=== PATIENT | male | born 1970 | race Caucasian/White ===

== ENCOUNTER 2021-03-14 13:16 | Outpatient (REF) | payer OTHER, SELFPAY ==
[2021-03-14 16:52] LABS: Hematocrit 40.6 % (42-52); Mean Corpuscular HGB Conc 34.5 g/dl (31.0-36.0); Mean Corpuscular Hemoglobin 32.8 pg (27.0-33.0); Mean Corpuscular Volume 95.1 fL (80-98); Mean Platelet Volume 10.2 fL (9.4-12.4); Platelet Count 241 X10*3/uL (160-400); Red Blood Count 4.27 X10*6/uL (4.60-5.80); Red Cell Distribution Width 12.4 % (11.0-16.0); White Blood Count 9.4 X10*3/uL (4.8-10.8)
[2021-03-14 17:05] LABS: Anion Gap 13 (12-20); Blood Urea Nitrogen 4 mg/dL (9-16); C Reactive Protein 0.44 mg/dL (< or = 0.50); Calcium 8.9 mg/dL (8.4-10.2); Carbon Dioxide 26 mmol/L (22-29); Chloride 94 mmol/L (96-108); Estimated Glomerular Filt Rate > 60; Glucose Random 80 mg/dL (60-115); Potassium 4.2 mmol/L (3.3-5.1); Sodium 129 mmol/L (135-145)
[2021-03-16 05:11] LABS: Lyme Abs Screen <0.90 index
== END 2021-03-14 13:17 | disposition home or self-care (01) ==
LOC: HO.HMGCLDS 13:16
PROVIDERS: PCP Internal Medicine; Visit Provider Internal Medicine
DX: M25.429 Effusion, unspecified elbow (principal)
CPT/HCPCS: 36415; 80048; 85027; 86140; 86617; 86618

== ENCOUNTER 2021-04-18 07:38 | Outpatient (REF) | payer OTHER, SELFPAY ==
--- NOTE | ~2021-04-18 | XR_ITS ---
EXAMINATION: XR ELBOW, RIGHT CLINICAL INFORMATION: Pain COMPARISON: None TECHNIQUE: AP, lateral, and oblique views of the right elbow. FINDINGS: Bone alignment is normal. No fracture or dislocation is seen. The joint spaces are normal. There is no joint effusion. There is soft tissue swelling over the olecranon. XR/XR elbow RT min 3V IMPRESSION: Soft tissue swelling over the olecranon questionable for olecranon bursitis.
== END 2021-04-18 07:39 | disposition home or self-care (01) ==
LOC: HO.HOSX 07:38
PROVIDERS: Visit Provider Physician Assistant
DX: M70.20 Olecranon bursitis, unspecified elbow (principal)
CPT/HCPCS: 73080; 99202

== ENCOUNTER 2021-07-18 14:56 | Outpatient (REF) | payer OTHER, SELFPAY ==
--- NOTE | ~2021-07-18 | US_ITS ---
EXAMINATION: US VENOUS ULTRASOUND WITH DOPPLER LOWER EXTREMITY, LEFT CLINICAL INFORMATION: Left leg pain and swelling COMPARISON: Previous left leg venous ultrasound April 2014 and March 2011 TECHNIQUE: Ultrasound of the deep veins is performed from the hip to the calf with compression sonography and color and pulse Doppler assessment. Spectral analysis with color-flow imaging is performed. FINDINGS: There is linear echogenic material seen within the left common femoral vein suggestive of thrombus. This appears hypoechoic and some of this appears linear and hyperechoic. It is uncertain whether this represents acute or chronic nonocclusive DVT. The left profunda is patent. There is a duplicated left superficial femoral vein. One of the superficial femoral veins demonstrates hypoechoic material suggestive of nonocclusive DVT. Is uncertain whether this is acute or chronic. There is hypoechoic material in the left popliteal vein suggestive of nonocclusive DVT. Again it is uncertain whether this is acute or chronic as this appears mixed hypoechoic and more linear and hyperechoic. These findings are new or increased compared to older exam April 2014. Calf veins are not well visualized. There is no Mays's cyst. US/US venous duplex LE IMPRESSION: Nonocclusive DVT seen in the left common femoral, one of the superficial femoral and popliteal veins. It is uncertain whether this represents acute or chronic DVT. Short-term follow-up exam in several days to evaluate for change is recommended. Findings appear increased from 2014 exam.
== END 2021-07-18 14:57 | disposition home or self-care (01) ==
LOC: HO.US 14:56
PROVIDERS: Visit Provider Nurse Practitioner Family
DX: I82.402 Acute embolism and thrombosis of unspecified deep veins of left lower extremity (principal); I99.9 Unspecified disorder of circulatory system
CPT/HCPCS: 93971

== ENCOUNTER 2021-07-25 15:55 | Outpatient (REF) | payer OTHER, SELFPAY ==
--- NOTE | ~2021-07-25 | US_ITS ---
EXAMINATION: US VENOUS ULTRASOUND WITH DOPPLER LOWER EXTREMITY, LEFT CLINICAL INFORMATION: Acute embolism and thrombosis. COMPARISON: Ultrasound 07/18/2021 TECHNIQUE: Ultrasound of the deep veins is performed from the hip to the calf with compression sonography and color and pulse Doppler assessment. Spectral analysis with color-flow imaging is performed. FINDINGS: Again visualized is nonocclusive thrombus left common femoral, left superficial femoral proximal mid and distal segments and left popliteal vein. It is similar to previous study with thrombus appearing echogenic, hypoechoic and the linear and irregular performed. The calf veins are not visualized The posterior tibial vein appears patent. The left peroneal vein is not seen today. If the patient's symptoms persist, followup ultrasound in 5 days 7 days might be of value to exclude proximal propagation from a non-visualized calf vein. US/US venous duplex LE IMPRESSION: Nonocclusive DVT left lower leg similar to previous study from 07/18/2021.
== END 2021-07-25 15:56 | disposition home or self-care (01) ==
LOC: HO.US 15:55
PROVIDERS: PCP Internal Medicine; Visit Provider Nurse Practitioner Family
DX: I82.402 Acute embolism and thrombosis of unspecified deep veins of left lower extremity (principal)
CPT/HCPCS: 93971

== ENCOUNTER 2021-09-04 23:45 | Inpatient (IN) | payer OTHER, SELFPAY ==
--- NOTE | 2021-09-04 | ECG_ITS ---
Test Reason : dyspnea Blood Pressure : / mmHG Vent. Rate : 112 BPM Atrial Rate : 112 BPM P-R Int : 174 ms QRS Dur : 098 ms QT Int : 352 ms P-R-T Axes : 068 081 058 degrees QTc Int : 480 ms Sinus tachycardia Cannot rule out Anterior infarct , age undetermined Abnormal ECG When compared with ECG of 13-MAR-2017 15:22, No significant change was found Referred By: Generic ED Physician Electronically Signed By:NAVARRO FLORES
--- NOTE | ~2021-09-04 | CT_ITS ---
EXAMINATION: CT ANGIOGRAM OF THE CHEST WITH AND WITHOUT CONTRAST (CT PULMONARY ANGIOGRAM FOR PE) CLINICAL INFORMATION: Reason for Exam recent dx DVTs, now tachy and SOB COMPARISON: Radiograph 07/15/2019 TECHNIQUE: Prior to contrast administration, noncontrast localization images were obtained. Subsequently, multidetector volumetric imaging was performed from the thoracic inlet to below the diaphragms following the administration of 65 mL Omnipaque 350 intravenous contrast. No contrast reaction reported Sagittal, coronal, and MIP oblique sagittal reformatted images were obtained on the CT workstation, uploaded to PACS, and reviewed. This CT examination was performed using dose optimization techniques as appropriate, variously including the following: *Automated exposure control *Adjustment of mA and/or kV according to patient size (this includes techniques or standardized protocols for targeted exams where dose is matched to indication/reason for exam; i.e. extremities or head) *Use of iterative reconstruction technique Total exam dose-length product 311 mGy-cm FINDINGS: QUALITY OF STUDY/CONTRAST BOLUS: Suboptimal. PULMONARY ARTERIES: No central pulmonary embolism seen. No definite lobar or segmental pulmonary embolism seen. That said, enhancement of the main pulmonary artery is suboptimal, with much more significant enhancement of the aorta. THORACIC AORTA: No aneurysm or dissection. LUNG: The central airways are patent. There is moderate to severe paraseptal and centrilobular emphysema. Bandlike opacities are seen in the lower lobes favoring scarring. Tree in bud nodular opacities are seen in the lingula and left lower lobe. There are bilateral lower lobe cavities. Left lower lobe cavity measures 3.6 cm with air-fluid level. This is seen on series 6 image 474. Right lower lobe cavity measures 2.4 cm with adjacent small consolidation. Additional subtle groundglass opacities are present in the right middle lobe. PLEURA: No pleural effusion or pneumothorax. MEDIASTINUM: Normal heart size. No pericardial effusion. Prominent mediastinal lymph nodes are noted. 1.3 cm node in the precarinal region. Subcarinal 1.6 cm lymph node.. No evidence of septal bowing or right heart strain. CHEST WALL/AXILLA: No axillary or internal mammary lymphadenopathy. OSSEOUS STRUCTURES: No acute or suspicious osseous abnormality. UPPER ABDOMEN: Unremarkable. No reflux of contrast into the hepatic veins to suggest elevated right heart pressures. CT/CT angio chest PE protocol IMPRESSION: 1. Suboptimal opacification of the pulmonary arteries. No pulmonary embolism is seen. 2. Moderate to severe emphysema. Multiple areas of groundglass nodular opacities may be infectious or inflammatory. In addition, there are bilateral lower lobe cavities noted. VTE: negative
[2021-09-04 23:50] VITALS: BP 180/101; PULSE 111; RESP 22; TEMP 36.7; O2SAT 94; BMI 21.7
[2021-09-05] VITALS (8 sets, daily range): BP systolic 120–150; BP diastolic 79–91; PULSE 87–119; RESP 18–95; TEMP 36.6–36.9; O2SAT 90–97
--- NOTE | 2021-09-05 00:54 | ED_ITS ---
HPI - SOB/Dyspnea General Chief Complaint: Dyspnea Stated Complaint: difficulty breathing, chest pain, L leg clot Time Seen by Provider: 09/05/21 00:24 Source: patient Mode of arrival: ambulatory Limitations: no limitations History of Present Illness HPI Narrative: Patient comes to the emergency room complaining of shortness of breath for the last 2-3 weeks. Patient states he has been using his inhaler, but he has gradually noted that the shortness of breath is worse even with minimal exertion. Patient was diagnosed with DVTs at the end of July. Patient takes Eliquis, states he is complaint with medication. Patient has no chest pain, no URI symptoms. Denies history of CHF. Denies calf pain. Patient states he has been coughing a bit more than usual, more phlegm. No fever or chills. Patient reports he drank alcohol prior to arrival to the emergency room. States he drinks daily. Related Data Home Medications Medication Instructions Recorded Confirmed buprenorphine 8 mg-naloxone 2 mg 2 film SUBLINGUAL DAILY ea 08/10/20 08/08/21 sublingual film (Suboxone) hydroxychloroquine 200 mg tablet 200 mg PO BID tab 08/11/20 08/08/21 (Plaquenil) albuterol sulfate 90 mcg/actuation 2 puff PO QID PRN 07/25/21 08/08/21 aerosol inhaler (ProAir HFA) Previous Rx's Medication Instructions Recorded blood pressure monitor #1 ea 07/11/21 apixaban 5 mg tablet (Eliquis) 5 mg PO BID #60 tab 08/08/21 diclofenac sodium 1 % topical gel 2 g TOPICAL QID PRN #100 g 08/08/21 (Arthritis Pain (diclofenac)) fluticasone propionate 110 1 puff PO BID #36 ea 08/08/21 mcg/actuation HFA aerosol inhaler (Flovent HFA) Allergies Allergy/AdvReac Type Severity Reaction Status Date / Time Sulfa (Sulfonamide AdvReac Intermediate NAUSEA & Verified 08/08/21 11:39 Antibiotics) VOMITING [SULFA (SULFONAMIDE ANTIBIOTICS)] doxycycline AdvReac Mild Vomiting Verified 08/08/21 11:39 Review of Systems Review of Systems: Constitutional : No Weight loss, No Fever, No Chills, No Night Sweats, No Fatigue, No Malaise ENT/Mouth : No Hearing loss, No Ear Pain, No Nasal Congestion, No Sinus Pain, No Hoarseness, No sore throat, No Rhinorrhea, No Swallowing Difficulty Eyes: No Eye Pain, No Swelling, No Redness, No Foreign Body, No Discharge, No Vision Changes Cardiovascular : No Chest Pain, No SOB, No Dyspnea on Exertion, No Orthopnea, No Edema, No Palpitations Respiratory : Complaining of worsening chronic cough with sputum, mild wheezing, worsening shortness of breath, worse with exertion. Gastrointestinal : No Nausea, No Vomiting, No Diarrhea, No Constipation, No abdominal Pain, No Hematochezia, No Melena Genitourinary : no irregular bleeding, No Dysuria, No Urinary Frequency, No Hematuria, No Urinary Incontinence, No Urgency, No Flank Pain, No Urinary Flow Changes, No Hesitancy Musculoskeletal : No joint pain, No Myalgias, No Joint Swelling Skin : No Skin Lesions, No rash Neuro : No Weakness, No Numbness, No Paresthesias, No Loss of Consciousness, No Dizziness, No Headache Psych : No Anxiety/Panic, No Depression, No SI/HI/AH/VH, No Social Issues, Heme/Lymph: No Bruising, No Bleeding,No Lymphadenopathy Endocrine : No Polyuria, No Polydipsia, No Temperature Intolerance PMF Past Medical History Medical History Discoid lupus erythematosus Epidermal cyst History of substance abuse Pulmonary emphysema Surgical History No pertinent past surgical history Family History Family History Father CVD (cardiovascular disease) Mother Medical history unknown Sister No problems noted. Social History Social History Household Members: Friend(s) Housing: House Are you a primary neurocritical care physician to a significant other at home: No Do you presently have visiting nurse or other home services: No Alcohol intake: current Alcohol intake frequency: 3 or more drinks per day Alcohol type: beer Patient Tobacco Use Status: Current everyday Tobacco user Tobacco use type: Cigarette Cigarette Packs Per Day: 1 e-Cigarette/Vaping Use: Never Used Second Hand Smoke Exposure: No Advance Directives: No Advance Directives Information Provided: Yes service: No Current occupational status: unemployed Current occupation: rt hand / golf course Physical Exam Vital Signs: Vital Signs: Last Vital Signs Temp 98.4 F 09/05/21 00:22 Pulse 102 H 09/05/21 00:22 Resp 18 09/05/21 00:22 BP 120/79 09/05/21 00:22 Pulse Ox 94 09/05/21 00:22 BMI result Body Mass Index 21.7 Const: Other: Appearance: Alert. Oriented X3. No acute distress. Eyes: Pupils equal, round and reactive to light. ENT: Pharynx normal. Neck: Normal inspection. Neck supple. No lymph nodes noted. No crepitus CVS: Normal heart rate and rhythm. Pulses normal. Normal S1 and S2 Respiratory: No respiratory distress. Breath sounds normal. No Wheezing. No rales Abdomen: Soft and nontender. No rigidity. No distention. Skin: Skin warm and dry. Patient has a rash in upper extremities, neck, chest, consistent with discoid lupus Extremities: No lower extremity edema. No Lacerations. No Rash Neuro: Oriented X 3. No motor deficit. No sensory deficit. Moving all extremities. No slurred speech. CN 2 through 12 grossly intact Psych: calm, cooperative, normal affect Course Course Course Narrative: Patient has history of lupus, recently diagnosed with DVTs. On arrival, patient states that he feels short of breath which has been constant for several weeks, mildly tachycardic. Although patient is already taking Eliquis, we will go ahead and assess for pulmonary embolisms. Labs and imaging pending. sign out given to Dr. Roseanne LOVE - SOB/Dyspnea Lab Data Result diagrams: 09/05/21 00:54 09/05/21 00:54 Labs: Lab Results 09/05/21 Range/Units 00:54 WBC 11.8 H (4.8-10.8) X10*3/uL RBC 4.66 (4.60-5.80) X10*6/uL Hgb 15.0 (14.0-18.0) g/dl Hct 43.0 (42.0-52.0) % MCV 92.3 (80.0-98.0) fL MCH 32.2 (27.0-33.0) pg MCHC 34.9 (31.0-36.0) g/dl RDW 12.4 (11.0-16.0) % Plt Count 157 L D (160-400) X10*3/uL MPV 9.9 (9.4-12.4) fL Immature Gran % (Auto) 1.1 H (0.0-0.4) % Neut % (Auto) 83.0 H (45-73) % Lymph % (Auto) 7.6 L (20-40) % [place] % (Auto) 7.8 (2-11) % Eos % (Auto) 0.2 (0-4) % Baso % (Auto) 0.3 (0-2) % Lymph # (Auto) 0.9 L (1.2-4.9) X10*3/uL [place] # (Auto) 0.9 (0.1-1.2) X10*3/uL Eos # (Auto) 0.0 (0.0-0.4) X10*3/uL Baso # (Auto) 0.0 (0.0-0.2) X10*3/uL Abs Immat Gran (auto) 0.13 H (0.00-0.03) X10*3/uL Absolute Neuts (auto) 9.8 H (2.0-8.3) x10*3/uL Absolute Nucleated RBC 0.000 (0.0-0.012) X10*3/uL Nucleated RBC % (auto) 0.0 (0.0-0.2) /100WBC Discharge Plan Discharge Clinical Impression: Dyspnea Patient Disposition: Still a Patient Prescriptions: No Action albuterol sulfate [ProAir HFA] 90 mcg/actuation HFA aerosol inhaler 2 puff PO QID PRN (Reason: shortness of breath or wheezing) 0RF buprenorphine-naloxone [Suboxone] 8-2 mg film 2 film sublingual DAILY 0RF hydroxychloroquine [Plaquenil] 200 mg tablet 200 mg PO BID 0RF (DME) blood pressure monitor Kit See Rx Instructions .Route Qty: 1 0RF Rx Instructions: As directed Flovent HFA 110 mcg/actuation HFA aerosol inhaler 1 puff PO BID Qty: 36 1RF Eliquis 5 mg tablet 5 mg PO BID Qty: 60 1RF Rx Instructions: start 5 mg tablets 2 times per day after completing 10 mg 2 times per day diclofenac sodium [Arthritis Pain (diclofenac)] 1 % gel 2 g topical QID PRN (Reason: pain) Qty: 100 0RF Rx Instructions: apply to single elbow, wrist or hand; for hand includes palm/fingers/back of hand
[2021-09-05 01:02] LABS: MANUAL DIFF FLAG NO
[2021-09-05 01:03] LABS: Basophils Percent Auto 0.3 % (0-2); Eosinophils Percent Auto 0.2 % (0-4); Imm Gran Abs Auto 0.13 X10*3/uL (0.00-0.03); Imm Gran Pct Auto 1.1 % (0.0-0.4); Lymphocytes Absolute Auto 0.9 X10*3/uL (1.2-4.9); Lymphocytes Percent Auto 7.6 % (20-40); Mean Corpuscular HGB Conc 34.9 g/dl (31.0-36.0); Mean Corpuscular Hemoglobin 32.2 pg (27.0-33.0); Mean Corpuscular Volume 92.3 fL (80.0-98.0); Mean Platelet Volume 9.9 fL (9.4-12.4); Monocytes Absolute Auto 0.9 X10*3/uL (0.1-1.2); Monocytes Percent Auto 7.8 % (2-11); Neutrophils Absolute Auto 9.8 x10*3/uL (2.0-8.3); Platelet Count 157 X10*3/uL (160-400); Red Blood Count 4.66 X10*6/uL (4.60-5.80); Red Cell Distribution Width 12.4 % (11.0-16.0); White Blood Count 11.8 X10*3/uL (4.8-10.8)
[2021-09-05 01:12] LABS: Ethanol 192 mg/dL
[2021-09-05 01:18] LABS: Alanine Aminotransferase 64 U/L (0-40); Albumin Level 3.5 g/dL (3.5-5.0); Alkaline Phosphatase 183 U/L (39-117); Anion Gap 20 (12-20); Aspartate Amino Transferase 108 U/L (5-37); Bilirubin Direct 0.3 mg/dL (0.0-0.5); Bilirubin Total 0.5 mg/dL (0.0-1.0); Blood Urea Nitrogen 3 mg/dL (9-16); Calcium 8.6 mg/dL (8.4-10.2); Carbon Dioxide 20 mmol/L (22-29); Chloride 92 mmol/L (96-108); Creatinine Clr Calc Pharmacy 179.4; Estimated Glomerular Filt Rate > 60; Glucose Random 75 mg/dL (60-115); Magnesium 1.8 mg/dL (1.6-2.6); Potassium 4.6 mmol/L (3.3-5.1); Sodium 127 mmol/L (135-145); Total Protein 8.5 g/dL (6.5-8.0)
[2021-09-05 01:22] LABS: INTERNATIONAL NORM RATIO 1.2 (0.9-1.1); Prothrombin Time 13.2 SEC (9.9-13.0)
[2021-09-05 01:25] LABS: Partial Thromboplastin Time 47.7 SEC (24.1-38.0)
[2021-09-05 01:27] LABS: Lactic Acid 1.7 mmol/L (0.5-2.0)
[2021-09-05 01:32] LABS: B Type Natriuretic Peptide 17 pg/mL (<100); Troponin-I High Sensitivity 4.5 ng/L (<3.5-35.0)
[2021-09-05 01:40] LABS: COVID-19 Test Negative (Negative); IDNOW Serial# 55D5AD1C
[2021-09-05] MEDS: iohexoL 350 MG/ML 100 ML INFUS..BTL 65 ML IV (02:28)
--- NOTE | 2021-09-05 04:30 | PC.NURSE ---
pt walked outside and started smoking a cig. pt is told to return to room and explained he can not go outside to smoke. pt ambulates back to room w/o difficulty. Chg aware of incident.
--- NOTE | 2021-09-05 04:32 | PC.NURSE ---
pt is upset he is not going home at this time. pt awaiting for room assignment. Med rec done.
[2021-09-05] MEDS: Nicotine 21 MG PATCH.TD24 TRANSDERMA (04:45)
[2021-09-05] MEDS: chlordiazePOXIDE HCl 25 MG CAPSULE 50 MG PO (04:45)
[2021-09-05] MEDS: Piperacillin Sodium/Tazobactam 3.375 GM in 0.9 % Sodium Chloride 50 ML IV ×3 (04:47→23:04)
[2021-09-05] MEDS: vancomycin HCL 1,000 MG in 0.9 % Sodium Chloride 250 ML 270 MG IV (04:55)
--- NOTE | 2021-09-05 05:45 | PC.NURSE ---
pt denies any complaints and resting at this time. pt wakes to voice, respirations easy, n/l. pt awaiting for further orders.
--- NOTE | 2021-09-05 07:33 | PHA.MEDREC ---
Pharmacy Consult ? Medication Reconciliation Pharmacy has completed the medication reconciliation. There are no remarkable issues for provider's attention. Marilu Carrillo, Mary BethD
--- NOTE | 2021-09-05 07:51 | PC.NURSE ---
pt alert and oriented, skin pwd with some area of rash/blisters like spots all over the the face/neck area, pt denies pain/sob at this time, vs stable ns on the monitor pt is a daily drinker a lot of beers per pt, currently noticeable slight hand tremor pt denies headache/nausea/anxiety last drink was before arrival to the ed last night
--- NOTE | 2021-09-05 09:20 | P.HPHOSP_ITS ---
History of Present Illness Date of Service: 09/05/21 Chief Complaint: shortness of breath and cough This is a 51 year old male with a PMH of SLE, recently diagnosed DVT (June 2021), Emphysema, daily alcohol use, who presents to the hospital with progressive shortness of breath and an intermittently productive cough (yellow, no blood) of several weeks in duration. Patient reports concurrent generalized weakness, poor appetite and malaise. He denies any fevers, chills or night sweats. He denies any exposure to known TB positive persons, incarceration or travel to endemic areas. He reports that his symptoms became so severe that he is unable to sleep and hence the reason for presenting to the ED. In regards to his alcohol usage, he reports drinking 6 or more beers daily. He denies prior alcohol withdrawal symptoms, but he also reports that he has not gone more than 1 day without drinking. He does endorse tremors in the morning. He was noted to have tachycardia and tachypnea in the ED. His CTA of the chest was negative for PE but did show moderate to severe emphysema with multiple areas of ground glass nodular opacities and bilateral lower lobe cavities. He was given IV antibiotisscan showed, librium and admission was requested. Review of Systems Review of Systems: negative except HPI [facility] Medical History Discoid lupus erythematosus Epidermal cyst History of substance abuse Pulmonary emphysema Family History Father CVD (cardiovascular disease) Mother Medical history unknown Sister No problems noted. Surgical History No pertinent past surgical history Social History Household Members: Friend(s) Housing: House Are you a primary director long term care to a significant other at home: No Do you presently have visiting nurse or other home services: No Alcohol intake: current Alcohol intake frequency: 3 or more drinks per day Alcohol type: beer Patient Tobacco Use Status: Current everyday Tobacco user Tobacco use type: Cigarette Cigarette Packs Per Day: 1 e-Cigarette/Vaping Use: Never Used Second Hand Smoke Exposure: No Use of substances other than those prescribed or required for medical reasons: No Advance Directives: No Advance Directives Information Provided: Yes service: No Current occupational status: 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 Allergies Allergy/AdvReac Type Severity Reaction Status Date / Time Sulfa (Sulfonamide AdvReac Intermediate NAUSEA & Verified 08/08/21 11:39 Antibiotics) VOMITING [SULFA (SULFONAMIDE ANTIBIOTICS)] doxycycline AdvReac Mild Vomiting Verified 08/08/21 11:39 Active Medications: Current Medications Acetaminophen (Acetaminophen Supp 650 Mg Supp.Rect) 650 mg VA Q6H PRN PRN Reason: Pain, Mild (Pain Scale 1-3) Ceftriaxone Sodium 1 gm/ (Sodium Chloride) 50 mls @ 100 mls/hr IV Q24H SURESH Azithromycin 500 mg/ Sodium (Chloride) 250 mls @ 125 mls/hr IV Q24H SURESH Ondansetron HCl (Ondansetron Hcl 4 Mg/2 Ml Vial) 4 mg IVPUSH Q8H PRN PRN Reason: Nausea and Vomiting Pharmacy Consult (Consult Rx Etoh Phenob Dosing) 1 each MISCELLANE ONCE ONE; Protocol Stop: 09/05/21 09:15 Sodium Chloride (0.9 % Sodium Chloride Flush 3 Ml Syringe) 3 ml IVFLUSH QSHIFT [facility] Home Medications Medication Instructions Recorded Confirmed Last Taken Type buprenorphine 8 mg-naloxone 2 mg 1 film SUBLINGUAL BID ea 08/10/20 09/05/21 Unknown History sublingual film (Suboxone) hydroxychloroquine 200 mg tablet 200 mg PO BID tab 08/11/20 09/05/21 Unknown History (Plaquenil) albuterol sulfate 90 mcg/actuation 2 puff PO QID PRN 07/25/21 09/05/21 Unknown History aerosol inhaler (ProAir HFA) alclometasone 0.05 % topical 1 appl TOPICAL BID PRN 09/05/21 09/05/21 Unknown History ointment fluocinonide 0.05 % topical 1 appl TOPICAL BID PRN 09/05/21 09/05/21 Unknown History ointment fluticasone propionate 110 1 puff PO BID 09/05/21 09/05/21 Unknown History mcg/actuation HFA aerosol inhaler (Flovent HFA) multivitamin 1 tab PO DAILY 09/05/21 09/05/21 Unknown History Physical Exam Vital Signs and Narrative: Vital Signs: Last Vital Signs Temp 98.4 F 09/05/21 00:22 Pulse 101 H 09/05/21 07:48 Resp 18 09/05/21 07:48 BP 138/84 09/05/21 07:48 Pulse Ox 95 09/05/21 07:48 BMI result Body Mass Index 21.7 Const: Other: Constitutional - Awake and Alert, ill appearing Eyes - PERRLA, EOMI Cardiovascular - S1S2, tachycardic in the 120s with exertion Respiratory - diffuse rhonchi with scattered wheezing Gastrointestinal - NT / ND; +BS; No rebound or guarding - No CVA tenderness Extremities - no calf tenderness bilaterally, no swelling Musculoskeletal - Normal inspection, normal ROM Skin - Warm/Dry Neurological - Alert & oriented x3, No focal deficit Psychological - Flat affect Results Labs CBC and Chem 7: 09/05/21 00:54 09/05/21 00:54 Labs: Laboratory Results - last 24 hr 09/05/21 09/05/21 09/05/21 00:53 00:54 00:54 MCV 92.3 MCH 32.2 MCHC 34.9 RDW 12.4 Plt Count 157 L D MPV 9.9 Immature Gran % (Auto) 1.1 H Neut % (Auto) 83.0 H Lymph % (Auto) 7.6 L [place] % (Auto) 7.8 Eos % (Auto) 0.2 Baso % (Auto) 0.3 Lymph # (Auto) 0.9 L [place] # (Auto) 0.9 Eos # (Auto) 0.0 Baso # (Auto) 0.0 Abs Immat Gran (auto) 0.13 H Absolute Neuts (auto) 9.8 H Absolute Nucleated RBC 0.000 Nucleated RBC % (auto) 0.0 PT INR APTT Anion Gap 20 Estim Creat Clear Calc 179.4 Estimated GFR > 60 Random Glucose 75 Lactic Acid Calcium 8.6 Magnesium 1.8 Total Bilirubin 0.5 Direct Bilirubin 0.3 AST 108 H ALT 64 H Alkaline Phosphatase 183 H D B-Natriuretic Peptide Total Protein 8.5 H Albumin 3.5 Ethyl Alcohol 192 COVID-19 (QUINTIN) COVID-19 Clin Com 09/05/21 09/05/21 09/05/21 00:55 00:55 00:55 MCV MCH MCHC RDW Plt Count MPV Immature Gran % (Auto) Neut % (Auto) Lymph % (Auto) [place] % (Auto) Eos % (Auto) Baso % (Auto) Lymph # (Auto) [place] # (Auto) Eos # (Auto) Baso # (Auto) Abs Immat Gran (auto) Absolute Neuts (auto) Absolute Nucleated RBC Nucleated RBC % (auto) PT INR APTT Anion Gap Estim Creat Clear Calc Estimated GFR Random Glucose Lactic Acid 1.7 Calcium Magnesium Total Bilirubin Direct Bilirubin AST ALT Alkaline Phosphatase B-Natriuretic Peptide 17 Total Protein Albumin Ethyl Alcohol COVID-19 (QUINTIN) Negative COVID-19 Clin Com See Note 09/05/21 00:55 MCV MCH MCHC RDW Plt Count MPV Immature Gran % (Auto) Neut % (Auto) Lymph % (Auto) [place] % (Auto) Eos % (Auto) Baso % (Auto) Lymph # (Auto) [place] # (Auto) Eos # (Auto) Baso # (Auto) Abs Immat Gran (auto) Absolute Neuts (auto) Absolute Nucleated RBC Nucleated RBC % (auto) PT 13.2 H INR 1.2 H APTT 47.7 H Anion Gap Estim Creat Clear Calc Estimated GFR Random Glucose Lactic Acid Calcium Magnesium Total Bilirubin Direct Bilirubin AST ALT Alkaline Phosphatase B-Natriuretic Peptide Total Protein Albumin Ethyl Alcohol COVID-19 (QUINTIN) COVID-19 Clin Com Imaging Radiologist's Impressions: Impressions Chest CTA 09/05/21 02:25 IMPRESSION: 1. Suboptimal opacification of the pulmonary arteries. No pulmonary embolism is seen. 2. Moderate to severe emphysema. Multiple areas of groundglass nodular opacities may be infectious or inflammatory. In addition, there are bilateral lower lobe cavities noted. VTE: negative Assessment and Plan (1) COPD (chronic obstructive pulmonary disease): Status: Acute Plan This is a 51 year old male with a PMH of SLE, recently diagnosed DVT (June 2021), Emphysema, daily alcohol use, who presents to the hospital with progressive shortness of breath and an intermittently productive cough (yellow, no blood) of several weeks in duration. His work up reveals CT findings of concern and likely COPD exacerbation. He will be admitted for further work up and treatment. 1. Acute Exacerbation of COPD possibly brought on by infectious vs inflammatory vs neoplastic etiologies IV solu-medrol DuoNebs q4 hours scheduled + PRN 2. Possible pneumonia typical vs atypical to be ruled out; will check respiratory pathogen panel Empiric IV Rocephin/zithromax check procalcitonin 3. Cavitary lesions on CT to rule out pulmonary abscess in the bilateral lower lobes; does not have risk factors for TB but does for malignancy given his tobacco history will place in isolation, check T spot and get pulmonary input 4. Hyponatremia likely secondary to heavy EtOH use gentle IVF repeat SNa tomorrow 5. Alcohol abuse/dependence at risk for withdrawal -- will commence phenobarb per protocol monitor lytes 6. Chronic DVT continue his baseline Eliquis 7. SLE continue baseline meds Full Code DVT pptx, Eliquis I anticipate that the patient will require a medically necessary 2 midnight admission due to: COPD exacerbation, CT lung findings of unknown etiology (infectious vs inflammatory vs neoplastic) requiring work up and treatment, high risk for alcohol withdrawal requiring treatment with phenobarb and monitoring. This cannot be completed in a less acute setting. Quality Stroke Does the patient have a stroke diagnosis?: No VTE Prior VTE?: No VTE Risk Level:: Medical - moderate - high VTE Device Contraindication: Treatment Not Indicated VTE Drug Contraindication: N/A - Med Ordered
[2021-09-05] MEDS: cefTRIAXone sodium 1 GM in 0.9 % Sodium Chloride 50 ML IV (09:52)
[2021-09-05] MEDS: Multivitamin TABLET 1 TAB PO (09:52)
[2021-09-05] MEDS: Buprenorphine/Naloxone 8/2 mg FILM 1 FILM SUBLINGUAL ×2 (09:52→20:19)
[2021-09-05] MEDS: methylPREDNISolone Sod Succ 40 MG/ML VIAL IVPUSH ×2 (09:52→17:26)
[2021-09-05] MEDS: PHENobarbitaL sodium 130 MG/ML VIAL 232.7 MG IM (10:00)
[2021-09-05] MEDS: Enoxaparin Sodium 80 MG/0.8 ML SYRINGE 70 MG SUBCUT ×2 (10:08→20:20)
[2021-09-05] MEDS: Hydroxychloroquine Sulfate 200 MG TABLET PO ×2 (10:08→20:19)
[2021-09-05 10:17] LABS: Procalcitonin 0.06 ng/mL
--- NOTE | 2021-09-05 10:50 | PC.NURSE ---
report given to lien callaway in overflow
[2021-09-05] MEDS: Azithromycin 500 MG in 0.9 % Sodium Chloride 250 ML 125 MG IV (10:58)
[2021-09-05 12:16] LABS: Adenovirus PCR Not Detected (Not Detect.); Bordetella parapertussis PCR Not Detected (Not Detect.); Bordetella pertussis PCR Not Detected (Not Detect.); Chlamydia pneumoniae PCR Not Detected (Not Detect.); Coronavirus 229E PCR Not Detected (Not Detect.); Coronavirus HKU1 PCR Not Detected (Not Detect.); Coronavirus NL63 PCR Not Detected (Not Detect.); Coronavirus OC43 PCR Not Detected (Not Detect.); Human metapneumovirus PCR Not Detected (Not Detect.); Influenza A PCR Not Detected (Not Detect.); Influenza B PCR Not Detected (Not Detect.); Mycoplasma pneumoniae PCR Not Detected (Not Detect.); Parainfluenza 1 PCR Not Detected (Not Detect.); Parainfluenza 2 PCR Not Detected (Not Detect.); Parainfluenza 3 PCR Not Detected (Not Detect.); Parainfluenza 4 PCR Not Detected (Not Detect.); RSV PCR Not Detected (Not Detect.); Rhino/Enterovirus PCR Not Detected (Not Detect.); SARS-CoV-2 PCR Not Detected (Not Detect.)
[2021-09-05] MEDS: PHENobarbitaL sodium 130 MG/ML VIAL 174.18 MG IM ×2 (13:59→17:04)
--- NOTE | 2021-09-05 16:33 | P.CONPL_ITS ---
History of Present Illness History of Present Illness Consult date: 09/05/21 Chief complaint: Cough, SOB, weakness Narrative: This is an inpatient pulmonary consultation. This is a 51 year old male with a PMH of SLE, recently diagnosed DVT (June 2021), Emphysema, daily alcohol use, who presents to the hospital with progressive shortness of breath and an intermittently productive cough (yellow, no blood) of several weeks in duration. Patient reports concurrent generalized weakness, poor appetite and malaise. He denies any fevers, chills or night sweats. He denies any exposure to known TB positive persons, incarceration or travel to endemic areas. He reports that his symptoms became so severe that he is unable to sleep and hence the reason for presenting to the ED. In regards to his alcohol usage, he reports drinking 6 or more beers daily. He denies prior alcohol withdrawal symptoms, but he also reports that he has not gone more than 1 day without drinking. He does endorse tremors in the morning. He was noted to have tachycardia and tachypnea in the ED. His CTA of the chest was negative for PE but did show moderate to severe emphysema with multiple areas of ground glass nodular opacities and bilateral lower lobe cavities. I personally reviewed the CT scan myself. The patient appears to have areas of thin walled cyst in some are filled with an air-fluid level suggesting a superimposed infection. The thin-walled cavities are primarily in the lower lung zones. The patient is ready getting antibiotics. The areas of more consistent with bacterial infections. Less likely tuberculosis. Review of Systems Review of Systems: Constitutional : No Weight loss, No Fever, No Chills, No Night Sweats, No Fatigue, No Malaise ENT/Mouth : No Hearing loss, No Ear Pain, No Nasal Congestion, No Sinus Pain, No Hoarseness, No sore throat, No Rhinorrhea, No Swallowing Difficulty Eyes: No Eye Pain, No Swelling, No Redness, No Foreign Body, No Discharge, No Vision Changes Cardiovascular : No Chest Pain, No SOB, No Dyspnea on Exertion, No Orthopnea, No Edema, No Palpitations Respiratory : Complaining of worsening chronic cough with sputum, mild wheezing, worsening shortness of breath, worse with exertion. Gastrointestinal : No Nausea, No Vomiting, No Diarrhea, No Constipation, No abdominal Pain, No Hematochezia, No Melena Genitourinary : no irregular bleeding, No Dysuria, No Urinary Frequency, No Hematuria, No Urinary Incontinence, No Urgency, No Flank Pain, No Urinary Flow Changes, No Hesitancy Musculoskeletal : No joint pain, No Myalgias, No Joint Swelling Skin : No Skin Lesions, No rash Neuro : No Weakness, No Numbness, No Paresthesias, No Loss of Consciousness, No Dizziness, No Headache Psych : No Anxiety/Panic, No Depression, No SI/HI/AH/VH, No Social Issues, Heme/Lymph: No Bruising, No Bleeding,No Lymphadenopathy Endocrine : No Polyuria, No Polydipsia, No Temperature Intolerance [facility] Past Medical History Medical History Discoid lupus erythematosus Epidermal cyst History of substance abuse Pulmonary emphysema Family History Family History Father CVD (cardiovascular disease) Mother Medical history unknown Sister No problems noted. Surgical History Surgical History No pertinent past surgical history Social History Social History Household Members: Friend(s) Housing: House Are you a primary care associate to a significant other at home: No Do you presently have visiting nurse or other home services: No Alcohol intake: current Alcohol intake frequency: 3 or more drinks per day Alcohol type: beer Patient Tobacco Use Status: Current everyday Tobacco user Tobacco use type: Cigarette Cigarette Packs Per Day: 1 e-Cigarette/Vaping Use: Never Used Second Hand Smoke Exposure: No Use of substances other than those prescribed or required for medical reasons: No Advance Directives: No Advance Directives Information Provided: Yes service: No Current occupational status: 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 Allergies Allergy/AdvReac Type Severity Reaction Status Date / Time Sulfa (Sulfonamide AdvReac Intermediate NAUSEA & Verified 08/08/21 11:39 Antibiotics) VOMITING [SULFA (SULFONAMIDE ANTIBIOTICS)] doxycycline AdvReac Mild Vomiting Verified 08/08/21 11:39 Active Medications: Current Medications Acetaminophen (Acetaminophen Supp 650 Mg Supp.Rect) 650 mg GA Q6H PRN PRN Reason: Pain, Mild (Pain Scale 1-3) Buprenorphine/Naloxone (Buprenorphine/Naloxone 8/2 Mg Film) 1 film SUBLINGUAL BID [facility] Last Admin: 09/05/21 09:52 Dose: 1 film Documented by: Enoxaparin Sodium (Enoxaparin Sodium 80 Mg/0.8 Ml Syringe) 70 mg SUBCUT Q12H [facility] Last Admin: 09/05/21 10:08 Dose: 70 mg Documented by: Hydroxychloroquine Sulfate (Hydroxychloroquine Sulfate 200 Mg Tablet) 200 mg PO BID [facility] Last Admin: 09/05/21 10:08 Dose: 200 mg Documented by: Ceftriaxone Sodium 1 gm/ (Sodium Chloride) 50 mls @ 100 mls/hr IV Q24H [facility] Last Infusion: 09/05/21 10:22 Dose: Infused Documented by: Azithromycin 500 mg/ Sodium (Chloride) 250 mls @ 125 mls/hr IV Q24H [facility] Last Admin: 09/05/21 10:58 Dose: 125 mls/hr Documented by: Medication (No Benzodiazepines) 1 each MISCELLANE DAILY [facility] Methylprednisolone Sodium Succinate (Methylprednisolone Sod Succ 40 Mg/Ml Vial) 40 mg IVPUSH Q8H [facility] Last Admin: 09/05/21 09:52 Dose: 40 mg Documented by: Multivitamins/Vitamin C (Multivitamin Tablet) 1 tab PO DAILY [facility] Last Admin: 09/05/21 09:52 Dose: 1 tab Documented by: Nicotine Polacrilex (Nicotine Polacrilex 2 Mg Gum) 2 mg BUCCAL Q2H PRN PRN Reason: Nicotine Cravings Ondansetron HCl (Ondansetron Hcl 4 Mg/2 Ml Vial) 4 mg IVPUSH Q8H PRN PRN Reason: Nausea and Vomiting Phenobarbital (Phenobarbital 15 Mg Tablet) 45 mg PO BID [facility]; Protocol Stop: 09/07/21 09:01 Phenobarbital (Phenobarbital 30 Mg Tablet) 30 mg PO BID [facility]; Protocol Stop: 09/09/21 09:01 Phenobarbital (Phenobarbital 15 Mg Tablet) 15 mg PO DAILY [facility]; Protocol Stop: 09/11/21 09:01 Sodium Chloride (0.9 % Sodium Chloride Flush 3 Ml Syringe) 3 ml IVFLUSH QSHIFT [facility] Home Medications Medication Instructions Recorded Confirmed Last Taken Type buprenorphine 8 mg-naloxone 2 mg 1 film SUBLINGUAL BID ea 08/10/20 09/05/21 Unknown History sublingual film (Suboxone) hydroxychloroquine 200 mg tablet 200 mg PO BID tab 08/11/20 09/05/21 Unknown History (Plaquenil) albuterol sulfate 90 mcg/actuation 2 puff PO QID PRN 07/25/21 09/05/21 Unknown History aerosol inhaler (ProAir HFA) alclometasone 0.05 % topical 1 appl TOPICAL BID PRN 09/05/21 09/05/21 Unknown History ointment fluocinonide 0.05 % topical 1 appl TOPICAL BID PRN 09/05/21 09/05/21 Unknown History ointment fluticasone propionate 110 1 puff PO BID 09/05/21 09/05/21 Unknown History mcg/actuation HFA aerosol inhaler (Flovent HFA) multivitamin 1 tab PO DAILY 09/05/21 09/05/21 Unknown History Physical Exam Vital Signs: Vital Signs: Last Vital Signs Temp 98.2 F 09/05/21 11:31 Pulse 100 09/05/21 11:31 Resp 95 H 09/05/21 11:31 BP 150/89 H 09/05/21 11:31 Pulse Ox 95 09/05/21 11:31 BMI result Body Mass Index 21.7 Const: General: alert Neck: Neck: Yes normal visual inspection, Yes full ROM and Yes no lymphadenopathy Chest: Chest palpation & inspection: normal inspection of the chest Resp: Auscultation: diminished lung sounds Cardio: Rate: regular rate Rhythm: regular rhythm Heart sounds: S1 normal heart sound present and S2 normal heart sound present GI: Palpation (GI): Soft to palpation and nontender Auscultation: normal bowel sounds Skin: General skin exam: rashes and/or lesions noted Results Laboratory Findings CBC and BMP: 09/05/21 00:54 09/05/21 00:54 ABG, PT/INR, D-dimer: PT/INR, D-dimer PT 13.2 SEC (9.9-13.0) H 09/05/21 00:55 INR 1.2 (0.9-1.1) H 09/05/21 00:55 Abnormal lab findings: Abnormal Labs 09/05/21 09/05/21 09/05/21 00:54 00:54 00:55 WBC 11.8 H Plt Count 157 L D Immature Gran % (Auto) 1.1 H Neut % (Auto) 83.0 H Lymph % (Auto) 7.6 L Lymph # (Auto) 0.9 L Abs Immat Gran (auto) 0.13 H Absolute Neuts (auto) 9.8 H PT 13.2 H INR 1.2 H APTT 47.7 H Sodium 127 L Chloride 92 L Carbon Dioxide 20 L BUN 3 L AST 108 H ALT 64 H Alkaline Phosphatase 183 H D Total Protein 8.5 H Assessment and Plan (1) Bilateral pneumonia: Status: Acute (2) Abscess of lung: Status: Acute (3) Pulmonary emphysema: Qualifiers: Emphysema type: unspecified Qualified Code(s): J43.9 - Emphysema, unspecified Status: Acute (4) History of substance abuse: Status: Acute Plan The findings on the CT scan appeared to be more consistent with lung abscesses in her flu levels and thin walled cavities. Tuberculosis will be more thick walled and usually in the upper lung zones specially with reactivation disease. The patient appears to be mono compromise with cachexia. He is also at risk for aspiration due to his substance abuse. Recommendations: Continue antibiotics although would recommend covering for anaerobes with Zosyn or Augmentin Swallow eval Blood work testing Continue respiratory therapy Based on the appearance on the CT scan tuberculosis is less likely. No need to isolate based on the CT scan findings. Procedures Date of Service Date of Service: 09/05/21
--- NOTE | 2021-09-05 17:11 | PC.NURSE ---
Pt has been resting in EDOverflow 12. unlabored resp. slight tremors. denies other withdrawal sx. has dry confluent sores all over arms and chest. states these are from allan. LS CTA. aware of plan for admission for pneumonia. [facility].
--- NOTE | 2021-09-05 17:13 | PC.NURSE ---
steady on feet to BR w/o NELSON.
--- NOTE | 2021-09-05 17:34 | PC.NURSE ---
rn to rn with ana on [facility]
[2021-09-05] MEDS: PHENobarbitaL 15 MG TABLET 45 MG PO (20:20)
[2021-09-06] MEDS: methylPREDNISolone Sod Succ 40 MG/ML VIAL IVPUSH ×3 (01:52→19:03)
[2021-09-06] MEDS: 0.9 % Sodium Chloride Flush 3 ML SYRINGE IVFLUSH ×4 (01:53→23:32)
[2021-09-06 03:31] VITALS: BP 145/90; PULSE 86; RESP 17; TEMP 36.3; O2SAT 95
[2021-09-06] MEDS: Piperacillin Sodium/Tazobactam 3.375 GM in 0.9 % Sodium Chloride 50 ML IV ×4 (05:18→22:05)
[2021-09-06 06:05] LABS: Hematocrit 41.9 % (42.0-52.0); Hemoglobin 14.6 g/dl (14.0-18.0); Mean Corpuscular HGB Conc 34.8 g/dl (31.0-36.0); Mean Corpuscular Hemoglobin 32.2 pg (27.0-33.0); Mean Corpuscular Volume 92.3 fL (80.0-98.0); Mean Platelet Volume 10.3 fL (9.4-12.4); Platelet Count 149 X10*3/uL (160-400); Red Blood Count 4.54 X10*6/uL (4.60-5.80); Red Cell Distribution Width 12.2 % (11.0-16.0); White Blood Count 5.7 X10*3/uL (4.8-10.8)
[2021-09-06 06:26] LABS: Anion Gap 14 (12-20); Blood Urea Nitrogen 3 mg/dL (9-16); Calcium 8.7 mg/dL (8.4-10.2); Carbon Dioxide 26 mmol/L (22-29); Chloride 95 mmol/L (96-108); Creatinine Clr Calc Pharmacy 179.4; Estimated Glomerular Filt Rate > 60; Glucose Random 118 mg/dL (60-115); Potassium 3.8 mmol/L (3.3-5.1); Sodium 131 mmol/L (135-145)
[2021-09-06 07:29] VITALS: BP 158/96; PULSE 94; RESP 18; TEMP 36.6; O2SAT 95
[2021-09-06 08:12] LABS: HIV AB/AG Nonreactive (Nonreactive); HIV Num 1 0.17 S/CO (0.00-0.99)
[2021-09-06] MEDS: PHENobarbitaL 15 MG TABLET 45 MG PO ×2 (08:55→20:14)
[2021-09-06] MEDS: Multivitamin TABLET 1 TAB PO (08:55)
[2021-09-06] MEDS: Buprenorphine/Naloxone 8/2 mg FILM 1 FILM SUBLINGUAL ×2 (08:56→20:12)
[2021-09-06] MEDS: Hydroxychloroquine Sulfate 200 MG TABLET PO ×2 (08:56→20:13)
[2021-09-06] MEDS: Enoxaparin Sodium 80 MG/0.8 ML SYRINGE 70 MG SUBCUT ×2 (08:56→20:14)
[2021-09-06] MEDS: Nicotine 21 MG PATCH.TD24 TRANSDERMA (08:58)
[2021-09-06 11:34] VITALS: BP 136/86; PULSE 72; RESP 18; TEMP 36.3; O2SAT 92
[2021-09-06 11:56] LABS: CDiff Gene PCR NEGATIVE (Negative)
[2021-09-06] MEDS: Loperamide HCl 2 MG CAPSULE PO ×2 (12:48→20:14)
[2021-09-06 13:21] VITALS: BMI 21.7
--- NOTE | 2021-09-06 13:24 | HE.PHANOTE ---
md will leave a message to transition to augmentin tomorrow for potential aspiration pneumonia
--- NOTE | 2021-09-06 13:30 | MHC.CLN ---
NUTRITION PATIENT IS 90% OF IBW. ADDING ENSURE BID (700 KCAL, 40 G PROTEIN) TO PROVIDE ADDITIONAL NUTRITION.
[2021-09-06] MEDS: Azithromycin 500 MG in 0.9 % Sodium Chloride 250 ML 125 MG IV (13:40)
--- NOTE | 2021-09-06 15:12 | P.PNIM_ITS ---
Subjective Subjective Date of Service: 09/06/21 Interval History: seen and examined this morning denies shortness of breath, does not feeling like he is having any alcohol withdrawal having some diarrhea Review of Systems Review of Systems: Yes all other systems are reviewed and are negative Constitutional Constitutional: Denies chills and Denies fever(s) Cardiovascular Cardiovascular: Denies chest pain, Denies palpitations and Denies dyspnea Respiratory Respiratory: Reports cough and Denies dyspnea Gastrointestinal Gastrointestinal: Denies abdominal pain, Reports diarrhea and Denies nausea Endocrine Endocrine: Denies palpitations Physical Exam Vital Signs: Vital Signs: Last Vital Signs Temp 97.3 F 09/06/21 11:34 Pulse 72 09/06/21 11:34 Resp 18 09/06/21 11:34 BP 136/86 09/06/21 11:34 Pulse Ox 92 09/06/21 11:34 BMI result Body Mass Index 21.7 Const: General: cooperative, comfortable, alert and awake Nutritional Appearance: thin Orientation/consciousness: patient oriented x3 Eyes: Pupils: Equal, round and reactive pupils present Resp: Effort & Inspection: normal respiratory effort and able to speak in complete sentences Cardio: Rate: regular rate Heart sounds: S1 normal heart sound present and S2 normal heart sound present GI: Inspection: No distended Palpation (GI): Soft to palpation and nontender Skin: Other: rash hands, arm r/t SLE, chronic Neuro: General: patient oriented x3 Cranial nerves: Yes Equal, round and reactive pupils present Extrem: Other: no leg edema Objective Data Active Medications Acetaminophen (Acetaminophen Supp 650 Mg Supp.Rect) 650 mg [place] Q6H PRN PRN Reason: Pain, Mild (Pain Scale 1-3) Buprenorphine/Naloxone (Buprenorphine/Naloxone 8/2 Mg Film) 1 film SUBLINGUAL BID [facility] Last Admin: 09/06/21 08:56 Dose: 1 film Documented by: ESTHER Enoxaparin Sodium (Enoxaparin Sodium 80 Mg/0.8 Ml Syringe) 70 mg SUBCUT Q12H [facility] Last Admin: 09/06/21 08:56 Dose: 70 mg Documented by: ESTHER Hydroxychloroquine Sulfate (Hydroxychloroquine Sulfate 200 Mg Tablet) 200 mg PO BID [facility] Last Admin: 09/06/21 08:56 Dose: 200 mg Documented by: ESTHER Azithromycin 500 mg/ Sodium (Chloride) 250 mls @ 125 mls/hr IV Q24H [facility] Last Admin: 09/06/21 13:40 Dose: 125 mls/hr Documented by: ESTHER Piperacillin Sod/Tazobactam (Sod 3.375 gm/ Sodium Chloride) 50 mls @ 100 mls/hr IV Q6H [facility] Last Infusion: 09/06/21 13:46 Dose: 0 mls/hr Documented by: ESTHER Loperamide HCl (Loperamide Hcl 2 Mg Capsule) 2 mg PO Q6H PRN PRN Reason: Diarrhea Last Admin: 09/06/21 12:48 Dose: 2 mg Documented by: ESTHER Medication (No Benzodiazepines) 1 each MISCELLANE DAILY [facility] Methylprednisolone Sodium Succinate (Methylprednisolone Sod Succ 40 Mg/Ml Vial) 40 mg IVPUSH Q8H [facility] Last Admin: 09/06/21 08:55 Dose: 40 mg Documented by: ESTHER Multivitamins/Vitamin C (Multivitamin Tablet) 1 tab PO DAILY [facility] Last Admin: 09/06/21 08:55 Dose: 1 tab Documented by: ESTHER Nicotine (Nicotine 21 Mg Patch.Td24) 21 mg TRANSDERMA DAILY [facility] Last Admin: 09/06/21 09:13 Dose: Not Given Documented by: ESTHER Non-Admin Reason: Duplicate Order Nicotine Polacrilex (Nicotine Polacrilex 2 Mg Gum) 2 mg BUCCAL Q2H PRN PRN Reason: Nicotine Cravings Ondansetron HCl (Ondansetron Hcl 4 Mg/2 Ml Vial) 4 mg IVPUSH Q8H PRN PRN Reason: Nausea and Vomiting Phenobarbital (Phenobarbital 15 Mg Tablet) 45 mg PO BID [facility]; Protocol Stop: 09/07/21 09:01 Last Admin: 09/06/21 08:55 Dose: 45 mg Documented by: ESTHER Phenobarbital (Phenobarbital 30 Mg Tablet) 30 mg PO BID [facility]; Protocol Stop: 09/09/21 09:01 Phenobarbital (Phenobarbital 15 Mg Tablet) 15 mg PO DAILY [facility]; Protocol Stop: 09/11/21 09:01 Sodium Chloride (0.9 % Sodium Chloride Flush 3 Ml Syringe) 3 ml IVFLUSH QSHIFT [facility] Last Admin: 09/06/21 08:56 Dose: 3 ml Documented by: HO.RAEJ Labs CBC & Chem 7: 09/06/21 05:24 09/06/21 05:24 Labs: Laboratory Results - last 24 hr 09/05/21 09/06/21 09/06/21 17:34 05:24 05:24 MCV 92.3 MCH 32.2 MCHC 34.8 RDW 12.2 Plt Count 149 L MPV 10.3 Absolute Nucleated RBC 0.000 Nucleated RBC % (auto) 0.0 Anion Gap 14 Estim Creat Clear Calc 179.4 Estimated GFR > 60 Random Glucose 118 H D Calcium 8.7 C. difficile Tox B Gene HIV 1&2 Ab/P24 Ag 4thGn Nonreactive 09/06/21 10:00 MCV MCH MCHC RDW Plt Count MPV Absolute Nucleated RBC Nucleated RBC % (auto) Anion Gap Estim Creat Clear Calc Estimated GFR Random Glucose Calcium C. difficile Tox B Gene NEGATIVE HIV 1&2 Ab/P24 Ag 4thGn Microbiology Microbiology Results: Microbiology 09/05/21 00:55 Blood Culture - Preliminary Blood - Venous No growth after 24 hours. 09/05/21 00:55 Blood Culture - Preliminary Blood - Venous No growth after 24 hours. Assessment and Plan (1) Abscess of lung: Status: Acute Plan This is a 51 year old male with a PMH of SLE, recently diagnosed DVT (June 2021), Emphysema, daily alcohol use, who presents to the hospital with progressive shortness of breath and an intermittently productive cough (yellow, no blood) of several weeks in duration. His work up reveals CT findings of concern and likely COPD exacerbation. He will be admitted for further work up and treatment. Acute Exacerbation of COPD continue IV solu-medrol, plan to transition to po prednisone in am DuoNebs q4 hours scheduled + PRN pneumonia with lung abscess possible component of aspiration Seen by respiratory not likely TB per pulm, airborne precautions d/c initially treated with ceftriaxone/azithro; changed to zosyn by pulm continue zosyn, azithromycin, likely discharge with azithro and augmentin; pulm rec at least 2 weeks abx swallow eval pending Blood cultures negative to date YIMI, strep pneumo urine Ag and t spot pending Alcohol use disorder/dependence at risk for withdrawal continue phenobarbatol monitor lytes thiamine, folate supplementation care team eval pending transaminitis secondary to etoh use trend liver function Hyponatremia likely secondary to heavy EtOH use Improving sodium 131 follow BMP Chronic DVT interaction with Eliquis and phenobarbitol, therefore will AC with lovenox during hospitalization Diarrhea cdif negative prn imodium SLE continue plaquenil tobacco dependence smoking cessation advised NRT Opiate use disorder continue suboxone Full Code DVT pptx, lovenox Attending: Dr. Schafer ongoing inpatient management required due to COPD exacerbation, pneumonia, high risk for alcohol withdrawal requiring treatment with phenobarb and monitoring. Relative immune compromise (on plaquenil) therefore at risk for progression to sepsis, requires close monitoring. Quality Stroke Does the patient have a stroke diagnosis?: No VTE Prior VTE?: No VTE Risk Level:: Medical - moderate - high VTE Device Contraindication: Treatment Not Indicated VTE Drug Contraindication: N/A - Med Ordered
[2021-09-06 15:41] VITALS: BP 138/78; PULSE 84; RESP 18; TEMP 36.5; O2SAT 93
--- NOTE | 2021-09-06 16:23 | MHC.CM.PN ---
NURSE EAP COUNSELOR NOTE ELECTRONIC KEDICAL RECORD REVIEWWD ALONG WITH CASE DISCUSSED WITH STAFF NURSE AND THE HOSPITLAIST , MET WITH PATIENT HE LIVES ALONE AND IS EMPLOYED AT A [employer] , HE IS ACTIVE , INDEPENDENT IN ALL ADLS AND MOBILITY, HE DRIVES A CARE , HE REPORTED HE GOES OUT WITH THE GUYS FOR A COUPLE OF BEERS QD AND DENIES THAT HER HAS ANY PROBLEMS WITH HIS DRINKING HE REPORTED THAT OVER TH LAST WEEK HIS ENERGY LEVEL HAS BEEN ACTIVE , AND TIRES EASILY WHEN GOING UP THE STAIRS , HE ATTRIBUTES THIS AT FIRST WAS BECAUSE HE WAS UNEMPLOYED IN [place] AND JUST RESTARTED BACKK AT WORK. HE HADS NO VNA NO DME DISCHARGE PLAN HOME WITH NO SERIVES PCP F/O PSOT DISCHARGE TRANSPORTATION FAMILY EDUCATED ABOUT THE IMPORTANCE OF HVAING A HCP DECLINED AT THIS TIME, OFFERED CARE TEAM REFERRALS FOR ETOH COMMUNITY SUPPORTS
--- NOTE | 2021-09-06 16:29 | MHC.SL.SWA ---
Speech Pathologist Impression: WFL Risk of Aspiration Due to: History of Pneumonia Dysphasia Diet Status: No Change Liquid Consistency and Strategies for Safe Swallow: Liquid Intake Recommendation: Thin Solid Food Consistency: Dietary Recommendations: Regular Oral Medication Intake: Whole with Liquid Please contact the pharmacy regarding appropriate crushable or liquid drug formulations that are available whenever modified delivery is recommended. Compensatory Strategies and Precautions to be Taken for Safe Swallow: Sitting Upright (90 deg) Small Bites and Sips Alternate Liquids/Solids Rate of Ingestion Change Supervision While Eating and Drinking for Safe Swallow: None Needed Swallowing Recommended Treatments: Compens. Strategy Educat. Recommendation for Speech: NA:Typical Evaluation Flame Annealing Machine Setter Clinican/Clinical Fellow: No Supervisory Statement: I have reviewed and agree with the student/clinical fellow's documentation: N/A Speech Language Pathologist: Valarie Johns M.A., CCC-[employer]
--- NOTE | 2021-09-06 19:13 | MHC.RECOVSUP ---
Refused to be interview
[2021-09-06 19:32] VITALS: BP 134/92; PULSE 89; RESP 18; TEMP 36.6; O2SAT 99
[2021-09-06 23:59] VITALS: BP 137/87; PULSE 80; RESP 18; TEMP 36.4; O2SAT 96
[2021-09-07] MEDS: Loperamide HCl 2 MG CAPSULE PO ×2 (02:19→08:27)
[2021-09-07 03:54] VITALS: BP 132/81; PULSE 85; RESP 18; TEMP 36.5; O2SAT 96
[2021-09-07] MEDS: Piperacillin Sodium/Tazobactam 3.375 GM in 0.9 % Sodium Chloride 50 ML IV (05:07)
[2021-09-07 05:54] LABS: Hemoglobin 13.8 g/dl (14.0-18.0); Mean Corpuscular HGB Conc 33.7 g/dl (31.0-36.0); Mean Corpuscular Hemoglobin 31.7 pg (27.0-33.0); Mean Corpuscular Volume 94.3 fL (80.0-98.0); Mean Platelet Volume 10.8 fL (9.4-12.4); Platelet Count 154 X10*3/uL (160-400); Red Blood Count 4.35 X10*6/uL (4.60-5.80); Red Cell Distribution Width 12.1 % (11.0-16.0); White Blood Count 8.8 X10*3/uL (4.8-10.8)
[2021-09-07 06:18] LABS: Alanine Aminotransferase 89 U/L (0-40); Albumin Level 3.1 g/dL (3.5-5.0); Alkaline Phosphatase 155 U/L (39-117); Anion Gap 15 (12-20); Aspartate Amino Transferase 141 U/L (5-37); Bilirubin Direct 0.3 mg/dL (0.0-0.5); Bilirubin Total 0.7 mg/dL (0.0-1.0); Blood Urea Nitrogen 5 mg/dL (9-16); Calcium 8.8 mg/dL (8.4-10.2); Carbon Dioxide 26 mmol/L (22-29); Chloride 96 mmol/L (96-108); Creatinine Clr Calc Pharmacy 163.1; Estimated Glomerular Filt Rate > 60; Glucose Random 83 mg/dL (60-115); Magnesium 1.8 mg/dL (1.6-2.6); Potassium 4.1 mmol/L (3.3-5.1); Sodium 133 mmol/L (135-145); Total Protein 7.2 g/dL (6.5-8.0)
[2021-09-07 07:56] VITALS: BP 123/85; PULSE 72; RESP 18; TEMP 36.6; O2SAT 95
[2021-09-07] MEDS: PHENobarbitaL 15 MG TABLET 45 MG PO (08:27)
[2021-09-07] MEDS: 0.9 % Sodium Chloride Flush 3 ML SYRINGE IVFLUSH (08:27)
[2021-09-07] MEDS: predniSONE 20 MG TABLET 40 MG PO (08:27)
[2021-09-07] MEDS: Hydroxychloroquine Sulfate 200 MG TABLET PO (08:28)
[2021-09-07] MEDS: Multivitamin TABLET 1 TAB PO (08:28)
[2021-09-07] MEDS: Thiamine HCL 100 MG TABLET PO (08:28)
[2021-09-07] MEDS: Folic Acid 1 MG TABLET PO (08:28)
[2021-09-07] MEDS: Nicotine 21 MG PATCH.TD24 TRANSDERMA (08:29)
[2021-09-07] MEDS: Buprenorphine/Naloxone 8/2 mg FILM 1 FILM SUBLINGUAL (08:29)
--- NOTE | 2021-09-07 11:02 | PM.DS ---
DS: Providers Provider Date of Service: 09/07/21 Date of admission: 09/05/21 09:14 Primary care physician: Lizandro Teran MD Consults: 09/05/21 09:14 Consult to Pulmonology Routine Consulting Provider: Chapo Pina Reason for consultation: cavitary lesion on CT scan, history of smoking 09/06/21 15:39 Consult to Care Team Routine Comment: Reason for consultation: etoh Attending physician on discharge: [facility] Discharging clinician: Rubi Pina DS: Diagnosis Discharge Diagnosis (1) Abscess of lung: Status: Acute DS: Summary Hospital Course Hospital Course: HP as per admitting provider This is a 51 year old male with a PMH of SLE, recently diagnosed DVT (June 2021), Emphysema, daily alcohol use, who presents to the hospital with progressive shortness of breath and an intermittently productive cough (yellow, no blood) of several weeks in duration. Patient reports concurrent generalized weakness, poor appetite and malaise. He denies any fevers, chills or night sweats. He denies any exposure to known TB positive persons, incarceration or travel to endemic areas. He reports that his symptoms became so severe that he is unable to sleep and hence the reason for presenting to the ED. In regards to his alcohol usage, he reports drinking 6 or more beers daily. He denies prior alcohol withdrawal symptoms, but he also reports that he has not gone more than 1 day without drinking. He does endorse tremors in the morning. He was noted to have tachycardia and tachypnea in the ED. His CTA of the chest was negative for PE but did show moderate to severe emphysema with multiple areas of ground glass nodular opacities and bilateral lower lobe cavities. He was given IV antibiotisscan showed, librium and admission was requested . Acute Exacerbation of COPD . Treated with IV Solu-Medrol then transition to oral prednisone, scheduled DuoNebs and as needed. Patient still with some expiratory wheezing but wishes to go home and is safe for discharge at this point with a few more days of prednisone. pneumonia with lung abscess. Seen and evaluated by pulmonology, treated with IV Zosyn and azithromycin. TB ruled out, there was also question of a component of aspiration. Followed by respiratory therapy. Plan for 14 days azithromycin and Augmentin and follow up with the pulmonology office. Negative blood cultures after 48 hours. Alcohol use disorder/dependence. Treated with phenobarbital, thiamine, folate. Seen and evaluated by the care team and given information for outpatient supports transaminitis. Secondary to alcohol use. Hyponatremia . Significantly improved, secondary to alcohol use. Chronic DVT . Treated with Lovenox during hospitalization due to interaction with Eliquis and phenobarbital. Patient is to continue his Eliquis upon discharge. SLE. continue plaquenil tobacco dependence. smoking cessation advised Opiate use disorder. continue suboxone Time Spent with Patient Time attestation: Total time spent providing and/or coordinating discharge services: Discharge coordination time: Greater than 30 minutes Quality: Stroke Does the patient have a stroke diagnosis?: No Physical Exam Vital Signs: Vital Signs: Last Vital Signs Temp 97.8 F 09/07/21 07:56 Pulse 72 09/07/21 07:56 Resp 18 09/07/21 07:56 BP 123/85 09/07/21 07:56 Pulse Ox 95 09/07/21 07:56 BMI result Body Mass Index 21.7 Appearing in no acute distress head is normocephalic atraumatic eyes pupils are PERRLA sclera is anicteric mouth throat mucous membranes are intact and moist neck is supple no lymphadenopathy, no JVD noted lung sounds exp wheezing heart regular rate rhythm, clear S1, S2 positive bowel sounds, abdomen is soft, nontender neuro patient is alert x3, no focal deficits DS: Data Data Completed and Pending Labs on day of discharge: Laboratory Results - last 24 hr 09/06/21 09/07/21 09/07/21 10:00 05:24 05:24 WBC 8.8 RBC 4.35 L Hgb 13.8 L Hct 41.0 L MCV 94.3 MCH 31.7 MCHC 33.7 RDW 12.1 Plt Count 154 L MPV 10.8 Absolute Nucleated RBC 0.000 Nucleated RBC % (auto) 0.0 Sodium 133 L Potassium 4.1 Chloride 96 Carbon Dioxide 26 Anion Gap 15 BUN 5 L D Creatinine 0.55 Estim Creat Clear Calc 163.1 Estimated GFR > 60 Random Glucose 83 Calcium 8.8 Magnesium 1.8 Total Bilirubin 0.7 Direct Bilirubin 0.3 AST 141 H ALT 89 H Alkaline Phosphatase 155 H Total Protein 7.2 Albumin 3.1 L C. difficile Tox B Gene NEGATIVE Preliminary micro results at discharge 09/05/21 00:55 Blood Culture - Preliminary Blood - Venous No growth after 48 hours. 09/05/21 00:55 Blood Culture - Preliminary Blood - Venous No growth after 48 hours. Discharge Plan Discharge Anticipated Discharge Date/Time: 09/07/21 10:51 Patient Disposition: Home, Self-Care Discharge Diagnosis: Acute COPD exacerbation Pneumonia with lung abscess Alcohol use disorder Referrals: Lizandro Teran MD [Primary Care Provider] - 1 Week Discharge Medications: New amoxicillin-pot clavulanate 875-125 mg tablet 1 tab PO BID Qty: 28 0RF prednisone 10 mg tablet 40 mg PO DAILY Qty: 16 0RF Continued albuterol sulfate [ProAir HFA] 90 mcg/actuation HFA aerosol inhaler 2 puff PO QID PRN (Reason: shortness of breath or wheezing) 0RF fluocinonide 0.05 % ointment 1 appl topical BID PRN (Reason: RASH FLARE) 0RF alclometasone 0.05 % ointment 1 appl topical BID PRN (Reason: RASH FLARE) 0RF Flovent HFA 110 mcg/actuation HFA aerosol inhaler 1 puff PO BID 0RF multivitamin Tablet 1 tab PO DAILY 0RF buprenorphine-naloxone [Suboxone] 8-2 mg film 1 film sublingual BID 0RF hydroxychloroquine [Plaquenil] 200 mg tablet 200 mg PO BID 0RF Eliquis 5 mg tablet 5 mg PO BID Qty: 60 1RF Rx Instructions: start 5 mg tablets 2 times per day after completing 10 mg 2 times per day diclofenac sodium [Arthritis Pain (diclofenac)] 1 % gel 2 g topical QID PRN (Reason: pain) Qty: 100 0RF Rx Instructions: apply to single elbow, wrist or hand; for hand includes palm/fingers/back of hand Discharge Orders: Discharge Order (Routine); Ordered 09/07/21 Ordered By: Rubi Pina Diet: advance to usual diet Activity on Discharge: As tolerated Stand Alone Forms: Patient Portal Discharge page Care Plan Goals: Resolution of symptoms Health Concerns: Acute COPD exacerbation Pneumonia with lung abscess Alcohol use disorder Plan of Treatment: Follow-up with primary care provider as needed Please continue antibiotics as prescribed Follow-up with the sales engineering manager regarding your lung abscess Assessment: see discharge summary
--- NOTE | 2021-09-07 11:06 | MHC.CM.PN ---
PT TO DC HOME TODAY WITH NO SERVICES
--- NOTE | 2021-09-07 11:54 | HE.PHANOTE ---
Zosyn Antibiotic Stewardship < 48h of zosyn, pt to be discharged home today on augmentin
[2021-09-08 07:46] LABS: TS Negative Control Passed; TS Panel A 0; TS Panel B 0; TS Positive Control Passed; TSpotTB Negative (Negative)
[2021-09-10 09:31] LABS: Anti Nuclear Antibody Screen NEGATIVE (NEGATIVE)
[2021-09-10 15:45] LABS: Strep Pneumo Ag urine Not Detected (Not Detected)
== END 2021-09-07 11:40 | disposition home or self-care (01) | DRG 137 ==
LOC: HO.ED 09-05 03:58 → HO.EDOVER 09-05 09:21 → HO.S3 09-05 16:02
PROVIDERS: Hospitalist; Physician Assistant Medical; Admitting Provider Family Medicine; Emergency Provider Emergency Medicine; PCP Internal Medicine; Visit Provider Nurse Practitioner Acute Care
DX: J85.1 Abscess of lung with pneumonia (principal); M32.9 Systemic lupus erythematosus, unspecified; E87.1 Hypo-osmolality and hyponatremia; J43.9 Emphysema, unspecified; F11.20 Opioid dependence, uncomplicated; I82.509 Chronic embolism and thrombosis of unspecified deep veins of unspecified lower extremity; F17.210 Nicotine dependence, cigarettes, uncomplicated; Z23 Encounter for immunization; Z20.822 Contact with and (suspected) exposure to COVID-19; Z71.6 Tobacco abuse counseling; Z88.2 Allergy status to sulfonamides; Z79.01 Long term (current) use of anticoagulants; Z79.899 Other long term (current) drug therapy
CPT/HCPCS: 36415; 71275; 80048; 80076; 82077; 83605; 83735; 83880; 84145; 84484; 85025; 85027; 85610; 85730; 86038; 86039; 86481; 87040; 87389; 87493; 87633; 87635; 87899; 90686; 92610; 93005; 96365; 96367; 99285; J0456; J0696; J1650; J2543; J2560; J2920; J3370; Q9967

== ENCOUNTER → 2021-09-23 15:11 | Outpatient (BNVA) | payer OTHER, SELFPAY | PROVIDERS: PCP Internal Medicine; Visit Provider Internal Medicine Pulmonary Disease | DX: J85.1 Abscess of lung with pneumonia (principal); J43.9 Emphysema, unspecified; Z79.899 Other long term (current) drug therapy | CPT/HCPCS: 99212 ==

== ENCOUNTER 2021-10-08 16:27 | Outpatient (REF) | payer OTHER, SELFPAY ==
--- NOTE | ~2021-10-08 | CT_ITS ---
EXAMINATION: CT CHEST WITHOUT CONTRAST CLINICAL INFORMATION: Lung abscess. COMPARISON: Previous chest CTA August 2021 and chest x-ray June 2019. TECHNIQUE: Multidetector volumetric CT imaging of the chest was done. Axial MIP volume rendering provided. Sagittal and coronal reformatted images were obtained. This CT examination was performed using dose optimization techniques as appropriate, variously including the following: *Automated exposure control *Adjustment of mA and/or kV according to patient size (this includes techniques or standardized protocols for targeted exams where dose is matched to indication/reason for exam; i.e. extremities or head) *Use of iterative reconstruction technique DLP: 135 mGy-cm FINDINGS: LUNGS: There is evidence of severe emphysema. There is interval decrease in wall thickening and fluid level in the cavitary lesion in the left lower lobe. This measures 1.3 x 3.4 cm in AP and transverse dimension axial image 57 series 3 and is slightly decreased in size. There is interval decrease fluid or consolidation in the adjacent more posterior inferior nodule in the left lower lobe. This measures approximately 2 cm axial image 57 series 3 and appears unchanged in overall size. There are cystic areas in the right lower lobe that do not appear appreciably changed. The largest measures 2 x 2.5 cm. There is bronchial wall thickening and parabronchial soft tissue opacification and small infiltrate or atelectasis in the right middle lobe which is slightly increased. There is a new nodular opacity in the right middle lobe axial image 53 series 4. Otherwise diffuse airways disease seen throughout the lungs appears improved. MEDIASTINUM: There is stable mediastinal lymphadenopathy. Largest lymph node is a slightly enlarged subcarinal lymph node measuring 1.3 cm in short axis that is unchanged. Evaluation for hilar adenopathy is limited without contrast. The heart does not appear enlarged. There is coronary artery calcification. There is no pericardial effusion. PLEURA: There is no pleural effusion. No pleural mass or thickening. AXILLA: No lymphadenopathy. UPPER ABDOMEN: Unremarkable. OSSEOUS STRUCTURES: There are degenerative changes of the spine. CT/CT chest wo con IMPRESSION: Severe emphysema. Interval decrease in wall thickness and air-fluid level in the cavitary lesion in the left lower lobe. Interval decrease in density or fluid component of the smaller adjacent more posterior inferior left lower lobe cavitary nodule. Other cystic areas in the lower lobes do not appear appreciably changed. There is increasing airways disease and nodular opacities in the right middle lobe. Otherwise airways disease is slightly improved from August 2021 exam. Fleischner guidelines were followed.
== END 2021-10-08 16:28 | disposition home or self-care (01) ==
LOC: HO.CT 16:27
PROVIDERS: Absent Provider Internal Medicine; PCP Internal Medicine; Visit Provider Internal Medicine Pulmonary Disease
DX: J85.2 Abscess of lung without pneumonia (principal)
CPT/HCPCS: 71250

== ENCOUNTER → 2021-10-17 15:15 | Outpatient (BNVA) | payer OTHER, SELFPAY | PROVIDERS: PCP Internal Medicine; Visit Provider Internal Medicine Pulmonary Disease | DX: J85.2 Abscess of lung without pneumonia (principal); J44.9 Chronic obstructive pulmonary disease, unspecified | CPT/HCPCS: 99212 ==

== ENCOUNTER 2021-10-24 12:56 | Outpatient (REF) | payer OTHER, SELFPAY ==
--- NOTE | ~2021-10-24 | US_ITS ---
EXAMINATION: US (ANTERIOR ABDOMINAL WALL) LIMITED/FOLLOW UP CLINICAL INFORMATION: Palpable abnormality midline in the region of the pubis inferior to the umbilicus. COMPARISON: None TECHNIQUE: Targeted ultrasound evaluation to palpable abnormality midline pubic region. FINDINGS: In region of palpable abnormality, there is a 6 x 3.7 x 1.9 cm heterogeneous echotexture and complex fluid collection with some vascularity present. There is no peristalsis within it and no underlying abdominal wall hernia is seen. The lesion is smoothly demarcated. No fluid/fluid liver is appreciated to suggest recent hematoma. The above appearance is consistent with anterior abdominal wall hemangioma. Dermoid tumor could also be in this location but the vascular appearance would make this less likely. Less likely a soft tissue sarcoma or metastasis could appear this way. If clinically indicated ultrasound-guided core biopsy could be performed. US/US pelvic limited IMPRESSION: Midline pubic region anterior soft tissue mass which appears to have some blood flow within it and question cystic or cavernous regions. This could be related to a hemangioma which appears most likely. A dermoid tumor or metastatic/sarcomatous lesion is not excluded. Old organized hematoma could also demonstrate some internal vascularity.
== END 2021-10-24 12:57 | disposition home or self-care (01) ==
LOC: HO.HMGCX 12:56
PROVIDERS: Visit Provider Family Medicine
DX: K46.9 Unspecified abdominal hernia without obstruction or gangrene (principal)
CPT/HCPCS: 76857

== ENCOUNTER → 2021-10-25 14:52 | Outpatient (BNVA) | payer OTHER, SELFPAY | PROVIDERS: PCP Internal Medicine; Referring Provider Internal Medicine; Visit Provider Surgery | DX: R10.2 Pelvic and perineal pain (principal); J44.9 Chronic obstructive pulmonary disease, unspecified; I83.893 Varicose veins of bilateral lower extremities with other complications; I82.402 Acute embolism and thrombosis of unspecified deep veins of left lower extremity; F17.210 Nicotine dependence, cigarettes, uncomplicated; F41.9 Anxiety disorder, unspecified; F19.11 Other psychoactive substance abuse, in remission; J43.9 Emphysema, unspecified; I99.9 Unspecified disorder of circulatory system; L93.0 Discoid lupus erythematosus; Z72.89 Other problems related to lifestyle | CPT/HCPCS: 99202 ==

== ENCOUNTER → 2021-11-07 14:27 | Outpatient (BNVA) | payer OTHER, SELFPAY | PROVIDERS: PCP Internal Medicine; Visit Provider Surgery Vascular Surgery | DX: I83.12 Varicose veins of left lower extremity with inflammation (principal) | CPT/HCPCS: 99202 ==

== ENCOUNTER 2021-11-25 12:58 | Outpatient (REF) | payer OTHER, SELFPAY ==
--- NOTE | ~2021-11-25 | US_ITS ---
EXAMINATION: US VENOUS BILATERAL LOWER EXTREMITIES (REFLUX EXAM) CLINICAL INDICATION: Leg pain and varicose veins. COMPARISON: DVT study 07/25/2021 TECHNIQUE: Color flow triplex imaging and compression Doppler was performed to evaluate both the deep and the superficial systems bilaterally. To evaluate the superficial system, the examination was performed in the upright position. Color-flow Doppler ultrasound and compression ultrasound were utilized. In addition, maneuvers were utilized to demonstrate reflux. FINDINGS: 1. DEEP VENOUS ULTRASOUND OF THE RIGHT LOWER EXTREMITY: Respiratory variation, normal compression and augmented flow are noted in the right common femoral vein as well as the right popliteal vein and there is no evidence of deep venous thrombosis at these locations. There is no evidence of reflux in the deep system in either the common femoral vein or the popliteal vein. There is no evidence of a Mays's cyst. 2. SUPERFICIAL ULTRASOUND WITH DOPPLER OF RIGHT LOWER EXTREMITY: The right great saphenous vein at the saphenofemoral junction measures 9 mm, at the proximal thigh 2 mm, at the mid thigh 2 mm, above the knee 2 mm, at the knee 3 mm, [id number] 3 mm, midcalf 2 mm and at the ankle measures 2 mm. There is no reflux demonstrated in the right great saphenous vein. Duplicated Right Great Saphenous Vein: There is a lateral accessory saphenous measuring 3 mm without reflux The right small saphenous vein measures 2 mm and shows no reflux. Accessory Vein of Giacomini: None Incompetent Perforators: There is a single 2 mm recreation coordinator in the mid calf that demonstrates greater than 3 seconds of reflux. Varices Present: Yes ranging in size of up to 3 mm with greater than 3 seconds of reflux. 3. DEEP VENOUS ULTRASOUND OF THE LEFT LOWER EXTREMITY: Thrombus is present throughout the left lower extremity in the popliteal vein, femoral vein, profunda femoris vein and common femoral vein. Similar findings were present on the study from 07/25/2021. There is no evidence of a Mays's cyst. 4. SUPERFICIAL ULTRASOUND WITH DOPPLER OF LEFT LOWER EXTREMITY: Left great saphenous vein at the saphenofemoral junction measures 6 mm, at the proximal thigh 4 mm, at the mid thigh 5 mm, above the knee 6 mm, at the knee 5 mm, [id number] 7 mm, midcalf 5 mm and at the ankle measures 5 mm. Os reflux is present in the great saphenous vein below the knee with reflux times of 1.3 seconds Duplicated Left Great Saphenous Vein: None The left small saphenous vein measures 2 mm and shows no reflux. Accessory Vein of Giacomini: None Incompetent Perforators: None. Varices Present: 4 mm sized varices are present reflux times of up to 1.7 seconds. US/US venous duplex LE BI IMPRESSION: 1. Continued presence of left lower extremity DVT 2. Incompetent left great saphenous vein below the level of the knee. 3. There are bilateral refluxing varices. 4. A small 2 mm mid calf incompetent recreation coordinator noted on the right This critical result was discussed with Kisha in Dr. Hylton's office at 13:46 on the day of the exam and it was ascertained that the content and urgency of the report was understood at the time of direct communication.
== END 2021-11-25 12:59 | disposition home or self-care (01) ==
LOC: HO.US 12:58
PROVIDERS: Visit Provider Internal Medicine
DX: I83.12 Varicose veins of left lower extremity with inflammation (principal)
CPT/HCPCS: 93970

== ENCOUNTER → 2021-12-17 15:16 | Outpatient (BNVA) | payer OTHER, SELFPAY | PROVIDERS: PCP Internal Medicine; Visit Provider Surgery Vascular Surgery | DX: I73.9 Peripheral vascular disease, unspecified (principal); I83.12 Varicose veins of left lower extremity with inflammation; Z86.718 Personal history of other venous thrombosis and embolism | CPT/HCPCS: 99212 ==

== ENCOUNTER 2022-01-02 12:15 | Outpatient (REF) | payer OTHER, SELFPAY ==
--- NOTE | ~2022-01-02 | XR_ITS ---
EXAMINATION: XR ANKLE, LEFT CLINICAL INFORMATION: Chronic ulcer left ankle with COMPARISON: Pain TECHNIQUE: 3 views FINDINGS: There is mild bimalleolar soft tissue swelling. The ankle mortise and soft talar joints are normal. No visible acute fracture or dislocation seen. There is no bony erosive changes or soft tissue ulceration or gas formation. XR/XR ankle LT min 3V IMPRESSION: Bimalleolar minimal soft tissue swelling. Otherwise unremarkable left ankle exam
== END 2022-01-02 12:16 | disposition home or self-care (01) ==
LOC: HO.HMGCX 12:15
PROVIDERS: Visit Provider Internal Medicine
DX: L97.329 Non-pressure chronic ulcer of left ankle with unspecified severity (principal)
CPT/HCPCS: 73610

== ENCOUNTER 2022-01-06 15:57 | Outpatient (REF) | payer OTHER, SELFPAY ==
--- NOTE | 2022-01-06 17:28 | PFT_ITS ---
INDICATION: COPD. SPIROMETRY: FEV1 to FVC 49% with an FEV1 of 2.34 L which is 56% predicted, an FVC of 4.74 L which is 88% predicted. There was a significant response to bronchodilators noted. Maximum voluntary ventilation only 36% predicted. LUNG VOLUMES: Total lung capacity 107% predicted with a residual volume 165% predicted. DIFFUSION CAPACITY: DLCO 38% predicted. COMPARISONS: None available. INTERPRETATION: There is an obstructive ventilatory defect consistent with moderate to severe COPD. There was a significant response to bronchodilators noted. There is also moderate to severe decrease in the maximum voluntary ventilation secondary to deconditioning and also worsening dynamic inspiratory capacity. Lung volumes with significant air trapping due to the COPD and also has severe diffusion impairment, likely secondary to emphysematous changes and/or other parenchymal lung conditions should be considered. Clinical correlation warranted. MD SANTIAGO Castro/JAYME / [id number]
== END 2022-01-06 15:58 | disposition home or self-care (01) ==
LOC: HO.RESP 15:57
PROVIDERS: PCP Internal Medicine; Visit Provider Internal Medicine Pulmonary Disease
DX: J44.9 Chronic obstructive pulmonary disease, unspecified (principal)
CPT/HCPCS: 94060; 94727; 94729

== ENCOUNTER → 2022-01-10 15:47 | Outpatient (BNVA) | payer OTHER, SELFPAY | PROVIDERS: PCP Internal Medicine; Visit Provider Internal Medicine Pulmonary Disease | DX: J44.9 Chronic obstructive pulmonary disease, unspecified (principal); J85.2 Abscess of lung without pneumonia | CPT/HCPCS: 99212 ==

== ENCOUNTER 2022-01-23 13:00 | Outpatient (REF) | payer OTHER, SELFPAY ==
--- NOTE | ~2022-01-23 | CT_ITS ---
EXAMINATION: CT CHEST WITHOUT CONTRAST CLINICAL INFORMATION: Abscess of lung without pneumonia. COMPARISON: CT chest 10/08/2021 TECHNIQUE: Multidetector volumetric CT imaging of the chest was done. Axial MIP volume rendering provided. Sagittal and coronal reformatted images were obtained. This CT examination was performed using dose optimization techniques as appropriate, variously including the following: *Automated exposure control *Adjustment of mA and/or kV according to patient size (this includes techniques or standardized protocols for targeted exams where dose is matched to indication/reason for exam; i.e. extremities or head) *Use of iterative reconstruction technique DLP: 144 mGy-cm FINDINGS: HEEL FINISHER: Hyperinflated lungs LUNGS: There is diffuse paraseptal and centrilobular emphysema with ground-glass attenuation throughout both lungs. There is a known cavitary lesion in the left lower lobe posteriorly now with more air-fluid level measuring up 3.0 x 1.86 cm. Previously measured 1.3 x 3.4 cm. A second cavitary lesion, oriented more vertically on axial image 54/4, is stable measuring 1.90 x 0.77 cm. There is a third cavitary lesion in the right lower lobe measuring 2.1 x 2.1 cm in axial image 47/4. It is more posterior thick walled or soft tissue nodule measuring 1.50 x 0.63 cm on the same axial plane. There is interstitial thickening and parenchymal opacity in the right middle lobe slightly more progressed than the previous study. Focal thickening of left lower lobe posterior basal segment with extension of the pleural surface on axial image 56/4, is stable. Focal atelectatic changes in the left upper lobe, right upper lobe, and both lower lobes are stable. There is minimal increase interstitial thickening and left upper lobe anterior segment on axial image 37 through 42/4. Focal atelectasis and thickening adjacent right anterior pericardium in right middle lobe is stable. MEDIASTINUM: The thyroid lobes are symmetrical and normal. The central trachea and the bronchi are widely patent. Heart size and the great vessels are normal caliber. There are numerous precarinal and pretracheal lymph nodes. There are coronary artery calcifications present. No pericardial effusion seen. PLEURA: There is no pleural effusion, thickening or calcification. AXILLA: No lymphadenopathy. UPPER ABDOMEN: Visualized liver, spleen, pancreas and bilateral adrenal glands unremarkable. OSSEOUS STRUCTURES: No lytic or sclerotic process seen. CT/CT chest wo con IMPRESSION: 1. Previously noted cavitary lesion, left lower lobe, has recurrent air-fluid level. There is a second cavitary lesion in the right lower lobe which has mild posterior wall thickening, new. There is new patchy interstitial thickening in the left upper lobe anterior segment and right upper lobe anterior segments likely recurrent inflammatory process. 2. Diffuse emphysema, chronic bilateral scarring and significant cystic changes of both lungs are stable. 3. There are reactive lymph nodes in the mediastinum which are stable. Fleischner guidelines were followed.
== END 2022-01-23 13:01 | disposition home or self-care (01) ==
LOC: HO.CT 13:00
PROVIDERS: Visit Provider Internal Medicine Pulmonary Disease
DX: J85.2 Abscess of lung without pneumonia (principal)
CPT/HCPCS: 71250

== ENCOUNTER 2022-02-03 13:00 | Outpatient (REF) | payer OTHER, SELFPAY ==
--- NOTE | ~2022-02-03 | US_ITS ---
EXAMINATION: NONINVASIVE ASSESSMENT OF THE ARTERIES OF BOTH LOWER EXTREMITIES WITH ANKLE PRESSURE MEASUREMENTS, ANKLE BRACHIAL INDICES, PVR MEASUREMENTS AND BILATERAL LOWER EXTREMITY DUPLEX. CLINICAL INFORMATION: Peripheral vascular disease. TECHNIQUE: Ankle pressure measurements, ankle brachial indices and PVR tracings were obtained of the lower extremity arterial system bilaterally. In addition, duplex Doppler techniques with wave form analysis and measurement of velocities in the common femoral, profunda femoral, superficial femoral, popliteal and tibial arteries was performed. The study was performed only at rest. COMPARISON: None FINDINGS: NONINVASIVE ASSESSMENT OF THE ARTERIES OF BOTH LOWER EXTREMITIES WITH ABIs: RIGHT LEG: Right ankle-brachial index: 1.13 PVR (ankle): Normal LEFT LEG: Ankle-brachial index: 1.07 PVR (ankle): Normal BILATERAL LOWER EXTREMITY DUPLEX ULTRASOUND: RIGHT LEG: Common femoral artery: 140 cm/s, Diastolic flow reversal: Yes Profunda femoris artery: 139 cm/s, Diastolic flow reversal: Yes Superficial femoral artery (proximal): 130 cm/s, Diastolic flow reversal: Yes Superficial femoral artery (mid): 121 cm/s, Diastolic flow reversal: Yes Superficial femoral artery (distal): 113 cm/s, Diastolic flow reversal: Yes Popliteal artery: 110 cm/s, Diastolic flow reversal: Yes Posterior tibial artery: 65 cm/s, Diastolic flow reversal: Yes LEFT LEG: Common femoral artery: 130 cm/s, Diastolic flow reversal: Yes Profunda femoris artery: 173 cm/s, Diastolic flow reversal: Yes Superficial femoral artery (proximal): 149 cm/s, Diastolic flow reversal: Yes Superficial femoral artery (mid): 154 cm/s, Diastolic flow reversal: Yes Superficial femoral artery (distal): 77 cm/s, Diastolic flow reversal: Yes Popliteal artery: 101 cm/s, Diastolic flow reversal: Yes Posterior tibial artery: 99 cm/s, Diastolic flow reversal: Yes US/US arterial duplex LE IMPRESSION: RIGHT LEG: INGE 1.13. No evidence of arterial insufficiency. No hemodynamically significant lesions on duplex. LEFT LEG: INGE 1.07. No evidence of arterial insufficiency. No hemodynamically significant lesions on duplex. INGE Reference: - >0.97-1.25 = normal - no significant arterial disease - 0.75-0.96 = mild peripheral arterial disease - 0.5-0.74 = moderate peripheral arterial disease - <0.50 = severe peripheral arterial disease
== END 2022-02-03 13:01 | disposition home or self-care (01) ==
LOC: HO.US 13:00
PROVIDERS: Visit Provider Surgery Vascular Surgery
DX: I73.9 Peripheral vascular disease, unspecified (principal)
CPT/HCPCS: 93923; 93925

== ENCOUNTER → 2022-02-06 15:15 | Outpatient (BNVA) | payer OTHER, SELFPAY | PROVIDERS: PCP Internal Medicine; Visit Provider Surgery Vascular Surgery | DX: I73.9 Peripheral vascular disease, unspecified (principal); I83.12 Varicose veins of left lower extremity with inflammation | CPT/HCPCS: 99212 ==

== ENCOUNTER → 2022-03-13 15:47 | Outpatient (BNVA) | payer OTHER, SELFPAY | PROVIDERS: PCP Internal Medicine; Visit Provider Internal Medicine Pulmonary Disease | DX: J44.9 Chronic obstructive pulmonary disease, unspecified (principal); J85.2 Abscess of lung without pneumonia | CPT/HCPCS: 99212 ==

== ENCOUNTER 2022-03-24 16:28 | Outpatient (REF) | payer OTHER, SELFPAY ==
--- NOTE | ~2022-03-24 | CT_ITS ---
EXAMINATION: CT CHEST WITHOUT CONTRAST CLINICAL INFORMATION: Lung abscess COMPARISON: Previous chest CT most recent January 2022 TECHNIQUE: Multidetector volumetric CT imaging of the chest was done. Axial MIP volume rendering provided. Sagittal and coronal reformatted images were obtained. This CT examination was performed using dose optimization techniques as appropriate, variously including the following: *Automated exposure control *Adjustment of mA and/or kV according to patient size (this includes techniques or standardized protocols for targeted exams where dose is matched to indication/reason for exam; i.e. extremities or head) *Use of iterative reconstruction technique DLP: 133 mGy-cm FINDINGS: PEGGER: Hyperinflation and severe emphysema LUNGS: The largest lower lobe lung abscess measures 1.7 x 3.5 cm in AP and transverse dimension axial image 55 series 3. This is unchanged in size. This demonstrates interval decrease in fluid component. The adjacent smaller more inferior medial cavitary lesion or focal cystic bronchiectasis in the left lower lobe appears unchanged measuring approximately 1 cm. The cavitary lesion in the right lower lobe appears unchanged in size measuring 2 x 2.2 cm. This demonstrates interval decrease in fluid as well. There is evidence of interval improvement in airways disease and patchy infiltrates in the right middle lobe, lingula and both lung bases. There is still residual diffuse bronchial wall thickening, greatest at the lung bases. There is an irregular parenchymal at the left lung apex. This is triangular in shape and measures approximately 3 x 8 mm axial image 107 series 7. This is stable. There is a 5 mm irregular parenchymal density in the posterior segment of the right upper lobe near the major fissure axial image 209 series 7 probably representing scarring or subsegmental atelectasis. This is stable. There is a small calcified millimeter right lower lobe nodule axial image 258 series 7 that is stable. There is a 3 mm calcified right middle lobe nodule axial image 417 series 7 that is able. There is severe emphysema. MEDIASTINUM: Slight interval decrease in mediastinal lymphadenopathy. Largest lymph node is a precarinal lymph node measuring 1.2 cm in short axis compared to 1.5 cm on prior exam. No new adenopathy. Normal heart size. Moderate coronary artery calcification. No pericardial effusion. Normal thyroid gland. CORONARY ARTERY CALCIFICATION: Moderate PLEURA: There is no pleural effusion. No pleural mass or thickening. AXILLA: No lymphadenopathy. UPPER ABDOMEN: Unremarkable. OSSEOUS STRUCTURES: Unremarkable. CT/CT chest wo IV con IMPRESSION: Severe emphysema. Bilateral lower lobe lung abscesses appears similar in size but have less fluid compared to January 2022 exam. There is significant interval improvement in bibasilar airways disease. Fleischner guidelines were followed.
== END 2022-03-24 16:29 | disposition home or self-care (01) ==
LOC: HO.CT 16:28
PROVIDERS: Visit Provider Internal Medicine Pulmonary Disease
DX: J85.2 Abscess of lung without pneumonia (principal)
CPT/HCPCS: 71250

== ENCOUNTER → 2022-04-10 13:06 | Outpatient (BNVA) | payer OTHER, SELFPAY | PROVIDERS: PCP Internal Medicine; Visit Provider Student in an Organized Health Care Education/Training Program | DX: L93.0 Discoid lupus erythematosus (principal); I73.00 Raynaud's syndrome without gangrene; R07.9 Chest pain, unspecified; F17.210 Nicotine dependence, cigarettes, uncomplicated; Z79.899 Other long term (current) drug therapy | CPT/HCPCS: 99202 ==

== ENCOUNTER → 2022-04-18 15:44 | Outpatient (BNVA) | payer OTHER, SELFPAY | PROVIDERS: PCP Internal Medicine; Visit Provider Internal Medicine Pulmonary Disease | DX: J44.9 Chronic obstructive pulmonary disease, unspecified (principal); J85.2 Abscess of lung without pneumonia | CPT/HCPCS: 99212 ==

== ENCOUNTER 2022-05-05 13:05 | Outpatient (REF) | payer OTHER, SELFPAY ==
--- NOTE | ~2022-05-05 | US_ITS ---
EXAMINATION: US lump in the suprapubic area, LIMITED/FOLLOW UP CLINICAL INFORMATION: Lump in the suprapubic area COMPARISON: None TECHNIQUE AN TECHNIQUE: Targeted sonographic evaluation of the questionable lump in the suprapubic area revealed no abnormal findings US/US pelvic limited IMPRESSION: Unremarkable examination.
== END 2022-05-05 13:06 | disposition home or self-care (01) ==
LOC: HO.HMGCX 13:05
PROVIDERS: Absent Provider Student in an Organized Health Care Education/Training Program; PCP Family Medicine; Referring Provider Internal Medicine Medical Oncology; Visit Provider Family Medicine
DX: R10.2 Pelvic and perineal pain (principal); R19.00 Intra-abdominal and pelvic swelling, mass and lump, unspecified site
CPT/HCPCS: 76857

== ENCOUNTER 2022-05-29 08:10 | Outpatient (REF) | payer OTHER, SELFPAY ==
[2022-05-29 09:55] LABS: C Reactive Protein 1.65 mg/dL (< or = 0.50); Iron 52 mcg/dL (45-160); Percent Iron Saturation 14 % (15-50); Rheumatoid Factor < 15.0 IU/mL (<15.0); Total Iron Binding Capacity 377 mcg/dL (228-428); Unsaturated Iron Binding 325 ug/dL
[2022-05-29 10:09] LABS: Erythrocyte Sedimentation Rate 58 MM/HR (0-15)
[2022-05-29 10:16] LABS: Ferritin 244 ng/mL (20-250)
[2022-05-29 10:35] LABS: Folate 12.1 ng/mL (> or = 4.0); Vitamin B12 421 pg/mL (200-900)
[2022-05-29 10:41] LABS: Appearance Urine Clear; Color Urine Yellow; Glucose Urine UA Negative (Negative); Leukocyte Esterase Urine Negative (Negative); Nitrite Urine Negative (Negative); Specific Gravity - Urine <= 1.005 (1.005-1.025); Urine Blood Negative (Negative); Urine Ketones Negative (Negative); Urine Protein Negative (Neg-Trace)
[2022-05-29 10:45] LABS: Bacteria Urine None Seen (None Seen); Hyaline Casts Urine 0-2 /LPF (0-2); RBC Urine 0-2 /HPF (0-2); Squamous Epithelial Cell Urine 0-2 /HPF (0-2); WBC Urine 0-5 /HPF (0-5)
[2022-05-29 11:42] LABS: Creatinine Urine 15.24 mg/dL; Total Protein Urine Random < 7 mg/dL (<12)
[2022-05-30 10:59] LABS: Complement C3 96 mg/dL (82-185)
[2022-05-31 14:14] LABS: Anti Nuclear Antibody Screen NEGATIVE (NEGATIVE)
[2022-06-02 13:38] LABS: Anti DNA DS Antibody 1 IU/mL; Anti-Centromere B Antibodies <1.0 NEG AI (<1.0 NEG); Antibody to SS-B Antigen <1.0 NEG AI (<1.0 NEG); Cardiolipin IgG Ab 2.5 GPL-U/mL; SM/Ribonucleoprotein Ab 1.2 POS AI (<1.0 NEG); Scleroderma 70 Antibody <1.0 NEG AI (<1.0 NEG); Smith Protein <1.0 NEG AI (<1.0 NEG)
[2022-06-03 06:08] LABS: PTT (LAC) Screen 37 sec (<=40)
[2022-06-03 14:48] LABS: IgA 773 mg/dL (47-310); IgG 1957 mg/dL (600-1640); IgM 136 mg/dL (50-300)
[2022-06-03 22:29] LABS: Prot Elec - Albumin 3.6 g/dL (3.8-4.8); Prot Elec - Alpha1 0.5 g/dL (0.2-0.3); Prot Elec - Alpha2 1.1 g/dL (0.5-0.9); Prot Elec - Beta 1 0.6 g/dL (0.4-0.6); Prot Elec - Beta 2 0.6 g/dL (0.2-0.5); Prot Elec - Gamma 1.9 g/dL (0.8-1.7); Prot Elec - Total Protein 8.1 g/dL (6.1-8.1)
[2022-06-05 23:23] LABS: Beta-2 Glycoprotein IgG <2.0 U/mL (<20.0); Beta-2 Glycoprotein IgM 6.8 U/mL (<20.0)
[2022-06-08 19:14] LABS: Cardiolipin IgM Ab 8.7 MPL-U/mL; Cyclic Citrullinated Peptide <16 UNITS; TPMT Activity 15; Transferrin 280 mg/dL (188-341)
== END 2022-05-29 08:11 | disposition home or self-care (01) ==
LOC: HO.LAB 08:10
PROVIDERS: PCP Nurse Practitioner Family; Visit Provider Student in an Organized Health Care Education/Training Program
DX: L93.0 Discoid lupus erythematosus (principal); D64.9 Anemia, unspecified; Z79.899 Other long term (current) drug therapy
CPT/HCPCS: 36415; 81001; 82607; 82657; 82728; 82746; 82784; 82955; 83540; 84156; 84165; 84466; 85597; 85613; 85652; 85730; 86038; 86039; 86140; 86146; 86147; 86160; 86200; 86225; 86235; 86334; 86431

== ENCOUNTER → 2022-05-30 15:43 | Outpatient (BNVA) | payer OTHER, SELFPAY | PROVIDERS: PCP Nurse Practitioner Family; Visit Provider Internal Medicine Pulmonary Disease | DX: J44.9 Chronic obstructive pulmonary disease, unspecified (principal); J85.2 Abscess of lung without pneumonia | CPT/HCPCS: 99212 ==

== ENCOUNTER → 2022-06-26 13:48 | Outpatient (BNVA) | payer OTHER, SELFPAY | PROVIDERS: PCP Nurse Practitioner Family; Visit Provider Student in an Organized Health Care Education/Training Program | DX: L93.0 Discoid lupus erythematosus (principal); I73.00 Raynaud's syndrome without gangrene; R07.9 Chest pain, unspecified; F10.20 Alcohol dependence, uncomplicated; F17.210 Nicotine dependence, cigarettes, uncomplicated; Z79.52 Long term (current) use of systemic steroids; Z79.899 Other long term (current) drug therapy | CPT/HCPCS: 99212 ==

== ENCOUNTER 2022-07-22 16:41 | Outpatient (REF) | payer OTHER, SELFPAY | END 2022-07-22 16:42 | disposition home or self-care (01) | LOC: HO.LAB 16:41 | PROVIDERS: PCP Internal Medicine; Visit Provider Internal Medicine Pulmonary Disease | DX: J85.2 Abscess of lung without pneumonia (principal) | CPT/HCPCS: 87070; 87077; 87205 ==

== ENCOUNTER → 2022-07-30 08:55 | Outpatient (BNVA) | payer OTHER, SELFPAY | PROVIDERS: PCP Internal Medicine; Referring Provider Student in an Organized Health Care Education/Training Program; Visit Provider Internal Medicine | DX: R07.9 Chest pain, unspecified (principal); R94.31 Abnormal electrocardiogram [ECG] [EKG]; I25.10 Atherosclerotic heart disease of native coronary artery without angina pectoris; F17.210 Nicotine dependence, cigarettes, uncomplicated | CPT/HCPCS: 93005; 99202 ==

== ENCOUNTER → 2022-07-31 13:06 | Outpatient (BNVA) | payer OTHER, SELFPAY | PROVIDERS: PCP Internal Medicine; Visit Provider Surgery Vascular Surgery | DX: I83.12 Varicose veins of left lower extremity with inflammation (principal) | CPT/HCPCS: 99212 ==

== ENCOUNTER 2022-08-05 16:25 | Outpatient (REF) | payer OTHER, SELFPAY ==
--- NOTE | ~2022-08-05 | CT_ITS ---
EXAMINATION: CT CHEST WITHOUT CONTRAST CLINICAL INFORMATION: Lung abscesses. COMPARISON: 03/24/2022 TECHNIQUE: Multidetector volumetric CT imaging of the chest was done. Axial MIP volume rendering provided. Sagittal and coronal reformatted images were obtained. This CT examination was performed using dose optimization techniques as appropriate, variously including the following: *Automated exposure control *Adjustment of mA and/or kV according to patient size (this includes techniques or standardized protocols for targeted exams where dose is matched to indication/reason for exam; i.e. extremities or head) *Use of iterative reconstruction technique DLP: 140 mGy-cm FINDINGS: LUNGS: Again seen are underlying changes of COPD with marked bullous formation. Cavitary lesion in the right lower lobe is similar in size at 2.4 cm in maximal transverse dimension but demonstrates increased fluid content with air-fluid level compared to prior (7:453, compare prior 7:378). Cavitary lesion in the left lower lobe has considerably more fluid within it than previous measuring slightly larger at 4.0 x 2.3 cm compared with 4.0 x 1.8 cm (7:506, compare prior 7:451). Peribronchial thickening and some mild traction bronchiectasis is again seen. New tree-in-bud opacities are seen in the right lower lobe (7:496). Tree-in-bud opacities and atelectasis/scarring is again seen in the right middle lobe, unchanged from prior. Previously mentioned triangular-shaped 3 x 8 mm density at the left apex is unchanged (7:101, compare prior 7:105). No new suspicious mass is seen. MEDIASTINUM: Mediastinal adenopathy remains unchanged with pretracheal, paratracheal, precarinal, subcarinal and AP window lymph nodes. For example, a left paratracheal node continues to measure 1.2 cm in short axis dimension (7:260, compare prior 7:233). Heart size is normal. CORONARY ARTERY CALCIFICATION: Triple-vessel coronary calcifications are present PLEURA: There is no pleural effusion. No pleural mass or thickening. AXILLA: No lymphadenopathy. UPPER ABDOMEN: Hepatic steatosis appears significantly worse when compared to the prior study. OSSEOUS STRUCTURES: Unremarkable. CT/CT chest wo IV con IMPRESSION: 1. Right lower lobe and left lower lobe cavities are similar in size but with increased fluid. 2. Stable mediastinal adenopathy. 3. New tree-in-bud opacities right lower lobe. 4. Worsening hepatic steatosis. Fleischner guidelines were followed.
== END 2022-08-05 16:26 | disposition home or self-care (01) ==
LOC: HO.CT 16:25
PROVIDERS: PCP Nurse Practitioner Family; Visit Provider Internal Medicine Pulmonary Disease
DX: J85.2 Abscess of lung without pneumonia (principal)
CPT/HCPCS: 71250

== ENCOUNTER 2022-08-08 08:27 | Outpatient (REF) | payer OTHER, SELFPAY ==
--- NOTE | ~2022-08-08 | US_ITS ---
EXAMINATION: US VENOUS REFLUX/INSUFFICIENCY CLINICAL INFORMATION: The patient is a 52 year-old man with left lower extremity varicosities and inflammation. COMPARISON: Venous ultrasound dated 11/21/2021. TECHNIQUE: Bilateral lower extremity and venous insufficiency ultrasound was performed with velocity measurements. Color flow Doppler imaging was performed. FINDINGS: RIGHT SIDE: GREATER SAPHENOUS VEIN: The right saphenofemoral junction diameter is 0.6 cm. There is no reflux. The right proximal thigh diameter is 0.8 cm. There is no reflux. The right mid thigh diameter is 0.2 cm. There is no reflux. The right above-knee diameter is 0.3 cm. There is no reflux. The right at-knee diameter is 0.3 cm. There is no reflux. The right below-knee diameter is 0.3 cm. There is no reflux. The right mid calf diameter is 0.2 cm. There is no reflux. The right ankle diameter is 0.3 cm. There is no reflux. LATERAL ACCESSORY GREATER SAPHENOUS VEIN: The right saphenofemoral junction diameter is 0.3 cm. There is no reflux The right mid thigh diameter is 0.2 cm. There is no reflux. LESSER SAPHENOUS VEIN: The right saphenopopliteal junction diameter is 0.1 cm. There is no reflux. The right mid calf diameter is 0.1 cm. There is no reflux. The right distal calf diameter is 0.1 cm. There is no reflux. LEFT SIDE: GREATER SAPHENOUS VEIN: The left saphenofemoral junction diameter is 0.5 cm. There is no reflux. The left proximal thigh diameter is 0.7 cm. There is no reflux. The left mid thigh diameter is 0.5 cm. There is no reflux. The left above-knee diameter is 0.5 cm. There is no reflux. The left at-knee diameter is 0.5 cm. There is no reflux. The left below-knee diameter is 0.4 cm. There is no reflux. The left mid calf diameter is 0.5 cm. The reflux time is 1832 ms. The left ankle diameter is 0.5 cm. There is no reflux. LESSER SAPHENOUS VEIN: The left saphenopopliteal junction diameter is 0.2 cm. There is no reflux. The left mid calf diameter is 0.3 cm. There is no reflux. The left distal calf diameter is 0.1 cm. The reflux time is 1328 ms. BILATERAL DEEP VENOUS SYSTEMS: There is no deep venous thrombosis or reflux on the right. There is no deep venous thrombosis or reflux on the left. OTHER: 0.8 x 1.3 x 0.6 cm and 1.3 x 1.4 x 0.5 cm nonspecific right groin lymph nodes are seen. There is no sizable lymphadenopathy. US/US venous duplex LE BI IMPRESSION: 1. No hemodynamically significant reflux is seen of the right greater or lesser saphenous veins. 2. There is hemodynamically significant reflux of the left greater and lesser saphenous veins.
== END 2022-08-08 08:28 | disposition home or self-care (01) ==
LOC: HO.US 08:27
PROVIDERS: Visit Provider Surgery Vascular Surgery
DX: I83.893 Varicose veins of bilateral lower extremities with other complications (principal)
CPT/HCPCS: 93970

== ENCOUNTER → 2022-08-14 10:59 | Outpatient (BNVA) | payer OTHER, SELFPAY | PROVIDERS: PCP Internal Medicine; Visit Provider Surgery Vascular Surgery | DX: I83.12 Varicose veins of left lower extremity with inflammation (principal); I73.9 Peripheral vascular disease, unspecified | CPT/HCPCS: 99212 ==

== ENCOUNTER 2022-08-15 10:57 | Inpatient (IN) | payer OTHER, SELFPAY ==
--- NOTE | 2022-08-15 | ECG_ITS ---
Test Reason : chest pain Blood Pressure : / mmHG Vent. Rate : 092 BPM Atrial Rate : 092 BPM P-R Int : 180 ms QRS Dur : 096 ms QT Int : 402 ms P-R-T Axes : 085 078 084 degrees QTc Int : 497 ms Normal sinus rhythm Cannot rule out Anterior infarct (cited on or before 05-SEP-2021) Abnormal ECG When compared with ECG of 05-SEP-2021 00:02, T wave amplitude has decreased in Anterior leads Referred By: Generic ED Physician Electronically Signed By:NAVARRO FLORES
--- NOTE | ~2022-08-15 | CT_ITS ---
EXAMINATION: CT ABDOMEN AND PELVIS WITH CONTRAST CLINICAL INFORMATION: Right-sided abdominal pain COMPARISON: Pelvic ultrasound April [address] July 2022 TECHNIQUE: Multidetector volumetric images were obtained from the superior aspect of the liver through the pubic symphysis following administration 85 mL of Omnipaque 350 intravenous contrast. Sagittal and coronal reformatted images were obtained on the technologist's workstation. Oral contrast: Yes This CT examination was performed using dose optimization techniques as appropriate, variously including the following: *Automated exposure control *Adjustment of mA and/or kV according to patient size (this includes techniques or standardized protocols for targeted exams where dose is matched to indication/reason for exam; i.e. extremities or head) *Use of iterative reconstruction technique DLP: 401 mGy-cm FINDINGS: LUNG BASES: Stable cavitary lesions in both lower lobes. Evidence of airways disease. LIVER, GALLBLADDER, AND BILIARY TREE: The gallbladder is enlarged measuring 12 x 6 x 5 cm. There is high attenuation seen in the gallbladder. Appearance is questionable for possible sludge or hemorrhage. Mass cannot be excluded. No gallstones are appreciated by CT. There is a small amount of fluid seen surrounding the gallbladder. The liver is slightly enlarged and low in attenuation suggestive of mild fatty relation. No focal liver lesion. No biliary duct dilatation. PANCREAS: Unremarkable. SPLEEN: Unremarkable. ADRENAL GLANDS: Unremarkable. KIDNEYS AND URETERS: The kidneys are normal in size, shape, and attenuation. No hydronephrosis, hydroureter, or calculi seen. No perinephric stranding. Right renal cyst. No imaging follow-up recommended. BLADDER: Bladder is very full. GASTROINTESTINAL TRACT: There are fluid-filled distended loops of small bowel suggestive of an ileus. There is question of areas of mild wall thickening or edema of the colon. This may be related to liver disease. 4 low albumin. No significant ascites. Appendix not seen. ABDOMINAL WALL: Pelvic varices. LYMPH NODES: Normal. VASCULAR: Severe atherosclerotic disease. PELVIC VISCERA: Unremarkable. OSSEOUS STRUCTURES: Degenerative changes of the spine and hip joints. CT/CT abdomen pelvis w IV con IMPRESSION: Abnormal appearing gallbladder. The gallbladder is enlarged, filled with high attenuation material and there is a small amount of pericholecystic fluid. Cholecystitis, gallbladder mass and hemorrhage in the gallbladder should be considered. Follow-up abdominal ultrasound has already been ordered. Stable cavitary lung lesions from recent chest CT. Patient has history of lung abscesses. Distended fluid-filled loops of small bowel probably representing an ileus. Bowel wall thickening of the colon. This may be secondary to low albumin or liver disease. Very distended bladder. Fleischner guidelines were followed.
--- NOTE | ~2022-08-15 | MR_ITS ---
EXAMINATION: MR ABDOMEN WITHOUT CONTRAST/MRCP CLINICAL INFORMATION: Evaluate gallbladder distention, dilated common bile duct. Hepatitis with elevated lipase. COMPARISON: CT scan of the abdomen and pelvis dated 08/15/2022 and ultrasound of the abdomen dated 08/15/2022. TECHNIQUE: An MRI scan of the abdomen was performed using multiple imaging sequences and imaging planes. As per the MRCP protocol, heavily T2-weighted 3-D high-resolution MRCP sequences were obtained in the coronal plane along with thin and thick slab coronal images and coronal MIP reconstructions obtained on the technologist workstation under concurrent physician supervision. FINDINGS: Evaluation is limited by motion artifact as well as by lack of intravenous contrast LIVER: The liver is normal in size and signal. No hepatic steatosis is seen. No focal cystic or solid mass is present. GALLBLADDER/BILIARY TREE: The MRCP sequences are unfortunately limited due to motion artifact. The gallbladder is very heterogeneous in its appearance and is hydropic, measuring at least 12.5 cm longitudinally and 5.2 cm transversely. There is diffuse gallbladder wall thickening and edema, measuring up to 1 cm in thickness. Corresponding to the previously seen imaging findings, there is heterogeneous mixed T1 bright signal seen within the gallbladder lumen, consistent with hemorrhagic contents. There is small volume ascites seen around the gallbladder extending to the de hepatis and around the liver and spleen. In the region of the de hepatis, the enlarged gallbladder neck causes extrinsic mass effect upon the distal common hepatic duct, which appears to be focally attenuated due to this mass effect with upstream mild distention of the common hepatic duct to 0.7 cm. Common bile duct is normal in caliber, measuring 0.6 cm in maximal diameter. There is a posteriorly layering sliver of hemorrhage within the common bile duct, which appears to be nonobstructing. No significant intrahepatic ductal dilatation is seen. Mild periportal edema is noted. PANCREAS: The pancreas is normal in appearance. No ductal dilatation, mass or surrounding stranding is seen. SPLEEN: Normal size and appearance. Splenic vein patent. ADRENAL GLANDS AND KIDNEYS: Adrenal glands normal. Kidneys bilaterally symmetric in size and function. There is a 0.8 cm T2 bright mass in the lower pole of the right kidney, consistent with a benign cyst. No suspicious focal mass, hydronephrosis, or perinephric stranding. BOWEL LOOPS: Grossly within normal limits. LYMPHOVASCULAR STRUCTURES: Abdominal aorta normal in caliber. No periaortic collections. No abdominal adenopathy. BONES: Multilevel mild vertebral spondylosis in the lumbar spine. MR/MR MRCP IMPRESSION: 1. Markedly hydropic gallbladder is seen with heterogeneous hemorrhagic contents seen within the lumen of the gallbladder. There is associated small volume ascites around the gallbladder and extending into the de hepatis and around the liver and spleen. Findings are nonspecific but are likely related to acute hemorrhagic cholecystitis. Without the benefit of intravenous contrast, gallbladder hemorrhage from an underlying gallbladder neoplasm cannot be entirely excluded. Close clinical correlation is recommended. Surgical consult is recommended. 2. There is extrinsic mass effect upon the distal common hepatic duct due to the enlarged gallbladder neck, causing mild upstream distention of the common hepatic duct. No significant intrahepatic ductal dilatation is seen. 3. There is a small amount of layering hemorrhage within the common bile duct, which appears to be nonobstructing. 4. Normal pancreas. 5. Right renal cyst. This critical result was discussed with Dr Puckett 08/16/2022, 1:30 PM and it was ascertained that the content and urgency of this report was understood at the time of direct communication.
--- NOTE | ~2022-08-15 | US_ITS ---
EXAMINATION: US ABDOMEN LIMITED CLINICAL INFORMATION: Hepatitis with elevated lipase. Rule out choledocholithiasis.. COMPARISON: CT abdomen pelvis 08/15/2022 TECHNIQUE: Real-time imaging of the right upper quadrant abdominal viscera. FINDINGS: PANCREAS: Normal. Pancreatic duct is at the upper limits of normal in diameter measuring 3 mm LIVER: Enlarged measuring 20 cm in CC length. Increased hepatic echotexture consistent with steatosis or hepatocellular disease. No liver lesion. GALLBLADDER: Markedly distended/dilated gallbladder measuring approximately 13 cm in length and fibula with heterogeneously echogenic avascular material consistent with extensive sludge, hemorrhage or sloughed membrane. No echogenic shadowing stone. No hyperemia of the wall. Gallbladder wall does not appear significantly thickened. There is a small amount of pericholecystic fluid. The patient did not have a sonographic Segundo sign at time the ultrasound for technologist report. An adjacent fluid-filled tubular structure medial to the gallbladder is favored represent fluid in the proximal duodenum. COMMON BILE DUCT: Dilated measuring 1.1 cm in diameter. The distal CBD is obscured by bowel gas precluding its assessment. RIGHT KIDNEY: Normal cortical echogenicity and thickness. Small 1.5 cm simple cyst in the right lower pole with adjacent 7 mm echogenic nonshadowing focus possibly calcification.. The kidney measures 11 cm in maximum dimension. FREE FLUID: Trace perihepatic free fluid. US/US abdomen limited IMPRESSION: 1. Markedly distended/dilated gallbladder containing extensive sludge, hemorrhage or sloughed membranes and small amount of pericholecystic and perihepatic fluid. No significant gallbladder wall thickening and the patient did not have a sonographic Segundo sign at time of the exam to suggest more specific evidence of acute cholecystitis. The possibility of cholecystitis cannot be excluded however given the appearance of the gallbladder. Hepatobiliary scan may be helpful. 2. Dilated proximal common bile duct measuring up to 1.1 cm in diameter. The distal CBD is obscured by bowel gas precluding its assessment. 3. Hepatomegaly and hepatic steatosis or hepatocellular disease. No liver lesion.
[2022-08-15 11:00] VITALS: BP 126/66; PULSE 99; RESP 16; TEMP 36.6; O2SAT 99; BMI 20.3
[2022-08-15 11:37] LABS: MANUAL DIFF FLAG NO
[2022-08-15 11:38] LABS: Basophils Percent Auto 0.3 % (0-2); Eosinophils Percent Auto 0.1 % (0-4); Hematocrit 37.8 % (42.0-52.0); Hemoglobin 13.6 g/dl (14.0-18.0); Imm Gran Abs Auto 0.09 X10*3/uL (0.00-0.03); Imm Gran Pct Auto 0.8 % (0.0-0.4); Lymphocytes Absolute Auto 0.4 X10*3/uL (1.2-4.9); Lymphocytes Percent Auto 3.9 % (20-40); Mean Corpuscular Hemoglobin 32.9 pg (27.0-33.0); Mean Corpuscular Volume 91.3 fL (80.0-98.0); Monocytes Absolute Auto 0.9 X10*3/uL (0.1-1.2); Monocytes Percent Auto 7.8 % (2-11); Neutrophils Absolute Auto 9.8 x10*3/uL (2.0-8.3); Neutrophils Percent Auto 87.1 % (45-73); Platelet Count 191 X10*3/uL (160-400); Red Blood Count 4.14 X10*6/uL (4.60-5.80); Red Cell Distribution Width 12.7 % (11.0-16.0); White Blood Count 11.2 X10*3/uL (4.8-10.8)
--- NOTE | 2022-08-15 12:09 | PC.NURSE ---
#20 IV placed in L AC without any complications noted ]
--- NOTE | 2022-08-15 12:13 | ED.CHESTPAIN ---
HPI - Chest Pain General Chief Complaint: Chest Pain Stated Complaint: chest back abd pain, difficulty breathing Time Seen by Provider: 08/15/22 11:38 Related Data Home Medications Medication Instructions Recorded Confirmed buprenorphine 8 mg-naloxone 2 mg 1 film sublingual BID 08/10/20 08/15/22 sublingual film (Suboxone) multivitamin 1 tab PO DAILY 09/05/21 08/15/22 Previous Rx's Medication Instructions Recorded fluocinonide 0.05 % topical 1 appl topical BID PRN itching #60 04/10/22 ointment grams hydroxychloroquine 200 mg tablet 200 mg PO BID #180 tabs 04/10/22 (Plaquenil) apixaban 5 mg tablet (Eliquis) 5 mg PO BID #180 tabs 04/13/22 ipratropium 0.5 mg-albuterol 3 mg 3 ml inhalation Q6-8H PRN wheezing 05/30/22 (2.5 mg base)/3 mL nebulization 30 days #180 mL soln prednisone 10 mg tablet 10 mg PO .COMPLEX #46 tabs 06/26/22 Allergies Allergy/AdvReac Type Severity Reaction Status Date / Time Sulfa (Sulfonamide AdvReac Intermediate NAUSEA & Verified 08/15/22 11:00 Antibiotics) VOMITING [SULFA (SULFONAMIDE ANTIBIOTICS)] doxycycline AdvReac Mild Vomiting Verified 08/15/22 11:00 PMFSH Past Medical History Medical History Abdominal hernia Alcohol use Anxiety COPD (chronic obstructive pulmonary disease) Epidermal cyst History of substance abuse Pulmonary emphysema Smoker Varicose veins of both lower extremities Surgical History No pertinent past surgical history Family History Family History Father CVD (cardiovascular disease) Mother Rheumatoid arthritis Sister No problems noted. Maternal Uncle Prostate cancer Maternal Uncle Lung cancer Colon cancer Social History Social History Household Members: Friend(s) Housing: Apartment Are you a primary animal care technician to a significant other at home: No Do you presently have visiting nurse or other home services: No Alcohol intake: current Alcohol intake frequency: 3 or more drinks per day Alcohol type: beer Patient Tobacco Use Status: Current everyday Tobacco user Tobacco use type: Cigarette Cigarette Packs Per Day: 2 Cigarettes Per Day: 40.0 Years Smoked: 30 e-Cigarette/Vaping Use: Never Used Second Hand Smoke Exposure: Yes Advance Directives: No Advance Directives Information Provided: No service: No Current occupational status: employed Current occupation: rt hand / golf [employer] Cognitive needs: No Hearing needs: No Vision needs: Yes Physical Exam Vital Signs: Vital Signs: Last Vital Signs Temp 98 F 08/15/22 11:00 Pulse 105 H 08/15/22 13:47 Resp 18 08/15/22 13:47 BP 144/82 H 08/15/22 13:47 Pulse Ox 96 08/15/22 13:47 O2 Del Method 08/15/22 13:47 BMI result Body Mass Index 20.3 Medications Administered Discontinued Medications Generic Name Dose Route Start Last Admin Trade Name Williamq PRN Reason Stop Dose Admin Sodium Chloride 1,000 mls @ 999 mls/hr 08/15/22 12:15 08/15/22 15:26 Ns IV 08/15/22 13:15 Infused .Q1H1M SURESH Infusion Piperacillin Sod/Tazobactam 100 mls @ 200 mls/hr 08/15/22 15:15 08/15/22 15:27 Sod 4.5 gm/ Sodium Chloride IV 08/15/22 15:44 200 mls/hr ONCE ONE Administration Iohexol 100 ml 08/15/22 13:41 08/15/22 13:41 Iohexol 350 Mg/Ml 100 Ml Infus..Btl IV 08/15/22 13:42 85 ml ONCE ONE Administration Lorazepam 2 mg 08/15/22 12:18 08/15/22 12:33 Lorazepam 2 Mg/Ml Vial IV 08/15/22 12:19 2 mg STAT STA Administration Medical Decision Making Medical Decision Making MDM Narrative: Patientdoes have chronic chest pains. I discussed the case with Dr. Miller who reviewed the EKG and states it is all chronic there is no acute ST elevation patient does have pain to his abdomen I will get a D-dimer as well as lipase for concerns of his pain patient is on suboxone. I will give some morphine fluids and send for XR labs and consult cardiology. With his abdominal pain I will send for CT. Still pending CT labs show hepatitis and pancreatitis. I will continue with fluids pain control. [address] Higgins at the bedside he has concerns pancreatitis and likely needs GI involvement he thinks patient better off medicine service due to his alcohol abuse history. Concerned the patient going to DTs. [address] Frias from GI who felt patient didn't have a stone on CT and that only a US was required he agreed with admission to medicine. CT read is in concerning for cholecystitis with mass in the gallbladder Differential Diagnosis Differential Diagnoses: The differential diagnosis associated with the presentation includes pancreatitis alcoholic gastritis ACS acute surgical issue of the abdomen as well as Affects his alcohol abuse alcoholic cirrhosis delirium tremens acute alcohol withdrawal alcoholic hepatitis choledocholithiasis coli lithiasis cholecystitis cholangitis Admission/Observation Consideration of admission/observation: Escalation of care including admission/observation considered Consult Healthcare Provider Management of the patient was discussed with: Screen Handler I discussed the case with Dr. Miller who states patient has a ECHO ordered and wants it ordered emergently and will follow troponin. Lab Data MDM Lab Attestation statement: I reviewed the patient's lab results. 08/15/22 11:29 08/15/22 11:29 Labs: Lab Results 08/15/22 08/15/22 08/15/22 Range/Units 11:29 11:29 11:29 WBC 11.2 H (4.8-10.8) X10*3/uL RBC 4.14 L (4.60-5.80) X10*6/uL Hgb 13.6 L (14.0-18.0) g/dl Hct 37.8 L (42.0-52.0) % MCV 91.3 (80.0-98.0) fL MCH 32.9 (27.0-33.0) pg MCHC 36.0 (31.0-36.0) g/dl RDW 12.7 (11.0-16.0) % Plt Count 191 (160-400) X10*3/uL MPV 9.0 L (9.4-12.4) fL Immature Gran % (Auto) 0.8 H (0.0-0.4) % Neut % (Auto) 87.1 H (45-73) % Lymph % (Auto) 3.9 L (20-40) % Stephenson % (Auto) 7.8 (2-11) % Eos % (Auto) 0.1 (0-4) % Baso % (Auto) 0.3 (0-2) % Lymph # (Auto) 0.4 L (1.2-4.9) X10*3/uL Stephenson # (Auto) 0.9 (0.1-1.2) X10*3/uL Eos # (Auto) 0.0 (0.0-0.4) X10*3/uL Baso # (Auto) 0.0 (0.0-0.2) X10*3/uL Abs Immat Gran (auto) 0.09 H (0.00-0.03) X10*3/uL Absolute Neuts (auto) 9.8 H (2.0-8.3) x10*3/uL Absolute Nucleated RBC 0.000 (0.0-0.012) X10*3/uL Nucleated RBC % (auto) 0.0 (0.0-0.2) /100WBC D-Dimer High Sensitivty NG/ML Sodium 130 L (135-145) mmol/L Potassium 3.3 D (3.3-5.1) mmol/L Chloride 89 L (96-108) mmol/L Carbon Dioxide 26 (22-29) mmol/L Anion Gap 18 (12-20) BUN < 3 L (9-16) mg/dL Creatinine 0.57 (0.5-1.4) mg/dL Estim Creat Clear Calc 145.8 Estimated GFR > 60 Fasting Glucose 121 H (60-99) mg/dL Calcium 8.6 (8.4-10.2) mg/dL Total Bilirubin 2.4 H (0.0-1.0) mg/dL Direct Bilirubin 1.7 H (0.0-0.5) mg/dL AST 1443 H (5-37) U/L ALT 313 H (0-40) U/L Alkaline Phosphatase 411 H (39-117) U/L Troponin I High Sens 4.2 (<3.5-35.0) ng/L Total Protein 7.2 (6.5-8.0) g/dL Albumin 3.3 L (3.5-5.0) g/dL Lipase 398 H (8-78) U/L Ethyl Alcohol 132 mg/dL Influenza Type A (PCR) (Negative) Influenza Type B (PCR) (Negative) RSV RNA Qual (PCR) (Negative) SARS-CoV-2 RNA (RT-PCR) (Negative) 08/15/22 08/15/22 Range/Units 13:53 13:56 WBC (4.8-10.8) X10*3/uL RBC (4.60-5.80) X10*6/uL Hgb (14.0-18.0) g/dl Hct (42.0-52.0) % MCV (80.0-98.0) fL MCH (27.0-33.0) pg MCHC (31.0-36.0) g/dl RDW (11.0-16.0) % Plt Count (160-400) X10*3/uL MPV (9.4-12.4) fL Immature Gran % (Auto) (0.0-0.4) % Neut % (Auto) (45-73) % Lymph % (Auto) (20-40) % Stephenson % (Auto) (2-11) % Eos % (Auto) (0-4) % Baso % (Auto) (0-2) % Lymph # (Auto) (1.2-4.9) X10*3/uL Stephenson # (Auto) (0.1-1.2) X10*3/uL Eos # (Auto) (0.0-0.4) X10*3/uL Baso # (Auto) (0.0-0.2) X10*3/uL Abs Immat Gran (auto) (0.00-0.03) X10*3/uL Absolute Neuts (auto) (2.0-8.3) x10*3/uL Absolute Nucleated RBC (0.0-0.012) X10*3/uL Nucleated RBC % (auto) (0.0-0.2) /100WBC D-Dimer High Sensitivty 633 NG/ML Sodium (135-145) mmol/L Potassium (3.3-5.1) mmol/L Chloride (96-108) mmol/L Carbon Dioxide (22-29) mmol/L Anion Gap (12-20) BUN (9-16) mg/dL Creatinine (0.5-1.4) mg/dL Estim Creat Clear Calc Estimated GFR Fasting Glucose (60-99) mg/dL Calcium (8.4-10.2) mg/dL Total Bilirubin (0.0-1.0) mg/dL Direct Bilirubin (0.0-0.5) mg/dL AST (5-37) U/L ALT (0-40) U/L Alkaline Phosphatase (39-117) U/L Troponin I High Sens (<3.5-35.0) ng/L Total Protein (6.5-8.0) g/dL Albumin (3.5-5.0) g/dL Lipase (8-78) U/L Ethyl Alcohol mg/dL Influenza Type A (PCR) NEGATIVE (Negative) Influenza Type B (PCR) NEGATIVE (Negative) RSV RNA Qual (PCR) NEGATIVE (Negative) SARS-CoV-2 RNA (RT-PCR) NEGATIVE (Negative) Independent Interpretation I performed an independent interpretation of an: EKG and Plain X-Ray Radiology Impression Discussion of test interpretation with radiology: I have reviewed the radiologist's reading. Critical Care Time Critical Care Time Critical Care Time: Yes Total Critical Care Time: 90 Attestation: Concern for alcohol withdrawal spoke with surgery, GI and required multiple evaluations Discharge Plan Discharge Clinical Impression: Cholecystitis, Gallbladder mass, Acute pancreatitis, Acute alcoholic hepatitis, Alcohol withdrawal Prescriptions: No Action Eliquis 5 mg tablet 5 mg PO BID Qty: 180 0RF multivitamin Tablet 1 tab PO DAILY buprenorphine-naloxone [Suboxone] 8-2 mg film 1 film sublingual BID ipratropium-albuterol 0.5 mg-3 mg(2.5 mg base)/3 mL solution for nebulization 3 ml inhalation Q6-8H PRN (Reason: wheezing) 30 Days Qty: 180 6RF hydroxychloroquine [Plaquenil] 200 mg tablet 200 mg PO BID Qty: 180 1RF fluocinonide 0.05 % ointment 1 appl topical BID PRN (Reason: itching) Qty: 60 4RF prednisone 10 mg tablet 10 mg PO .COMPLEX Qty: 46 1RF Rx Instructions: 10 mg orally; take 3 tabs by mouth with breakfast once daily for 1 week then 2 tabs daily for 1 week then 1 tab daily for 1 week then 0.5 tabs daily for 1 week then stop
--- NOTE | 2022-08-15 12:14 | CA_ITS ---
Transthoracic Echocardiogram Patient (Last, First, Middle): Yan Hooks J Gender: Male Date of : 1970 Age: 52 Procedure Date: 08/15/2022 Procedure Type: Transthoracic Echocardiogram Location: ER Height: 172.72 cm Weight: 68.04 kg BSA: 1.81 m2 Heart Rate: 100 bpm BP: 126 / 66 mmHg Nailer Hand: Referring MD: Jimmie Lowery DO Symptoms: chest pain Study Quality: Fair ECG Rhythm: Tachycardia Conclusions: - The left ventricular systolic function is normal. The calculated ejection fraction is 64% by biplane method. - There is mild mitral valve regurgitation. Findings Left Ventricle Normal left ventricular cavity size. There is mildly increased left ventricular wall thickness. The left ventricular systolic function is normal. The calculated ejection fraction is 64% by biplane method. There is no evidence of regional wall motion abnormalities. Diastolic function is normal for age. Diminished peak GLS at -14.2%. Right Ventricle Normal right ventricular cavity size and systolic function. Atria Both atria are normal in size. Aortic Valve The aortic valve was not well visualized. There is no aortic valve stenosis. There is no aortic valve regurgitation. Mitral Valve The mitral valve appears normal. There is mild mitral valve regurgitation. There is no mitral valve stenosis. Pulmonic Valve The pulmonic valve is likely normal. Tricuspid Valve There is mild tricuspid valve regurgitation. There is no evidence of pulmonary hypertension. Great Vessels The asc aorta is normal in size. Venous The inferior vena cava is normal in size and collapses greater than 50% with inspiration. Pericardium/Pleural There is a trivial pericardial effusion. Prior Study Comparison No prior study available for comparison. Measurements 2D Linear Measurements IVSd: 1.14 0.6-0.9/0.6-1.0 cm LVIDd: 4.05 3.9-5.3/4.2-5.9 cm LVIDd Index: 2.24 2.4-3.2/2.2-3.1 cm/m2 LVIDs: 2.60 2.0-3.6 cm LVPWd: 1.13 0.7-1.1 cm LA Diam: 3.00 2.7-3.8/3.0-4.0 cm LAIDs Index: 1.66 1.5-2.3 cm/m2 LV Mass: 193.45 67-162/88-224 g LV Mass Index: 106.88 43-95/49-115 g/m2 LVOT Diam: 2.30 3.0+(-)1.3 cm 2D Systolic Function EF 4C: 54.30 >55% EF 2C: 72.40 >55% EF BiP: 64.20 >55% Mitral Valve MV Pk E: 0.54 MV PK A: 0.97 MV Decel Time: 106.00 E/A: 0.60 E'Lateral: 9.03 E'Medial: 4.68 E/E' Med: 11.50 E/E' Lat: 6.00 PHT: 31.00 MVA PHT: 7.10 Decel Bacon: 5.12 Aortic Valve AoV Pk Felipe: 1.28 AoV Mn Felipe: 0.82 AoV VTI: 0.23 AoV Pk Grad: 7.00 Aov Mn Grad: 3.00 PORSHA Cont.VTI: 3.07 LVOT LVOT Pk Felipe: 0.86 LVOT Mn Felipe: 0.62 LVOT VTI: 0.17 LVOT Pk Grad: 3.00 LVOT Mn Grad: 2.00 LVOT Diam: 2.30 LVOT Area: 4.15 Diastolic Function MV Pk E: 0.54 MV Pk A: 0.97 E/A: 0.60 E'Medial: 4.68 E/E' Med: 11.50 E' Laterial: 9.03 E/E' Lat: 6.00 Right Ventricle TAPSE (mm): 31.80 TVS' Felipe: 16.20 Tricuspid Valve TR Pk Felipe: 2.52 TR Pk Grad: 25.00 RA Press: 3.00 RVSP: 28.00 Great Vessels Aorta Sinus of Valsalva: 3.20 2.0-3.5 cm Pulmonary Valve PV Pk Felipe: 0.96 Peak PV Grad: 4.00 Updated in Other Vendor System with Status of Final Baron Miller MD electronically signed on 08/15/2022 3:49:19 PM with status of Final
[2022-08-15 12:18] LABS: Troponin-I High Sensitivity 4.2 ng/L (<3.5-35.0)
[2022-08-15 12:27] LABS: Alanine Aminotransferase 313 U/L (0-40); Albumin Level 3.3 g/dL (3.5-5.0); Alkaline Phosphatase 411 U/L (39-117); Anion Gap 18 (12-20); Aspartate Amino Transferase 1443 U/L (5-37); Bilirubin Total 2.4 mg/dL (0.0-1.0); Blood Urea Nitrogen < 3 mg/dL (9-16); Calcium 8.6 mg/dL (8.4-10.2); Carbon Dioxide 26 mmol/L (22-29); Chloride 89 mmol/L (96-108); Creatinine Clr Calc Pharmacy 145.8; Estimated Glomerular Filt Rate > 60; Glucose Fasting 121 mg/dL (60-99); Potassium 3.3 mmol/L (3.3-5.1); Sodium 130 mmol/L (135-145); Total Protein 7.2 g/dL (6.5-8.0)
[2022-08-15] MEDS: LORazepam 2 MG/ML VIAL IV (12:33)
[2022-08-15] MEDS: 0.9 % Sodium Chloride 1,000 ML 999 ML IV ×2 (12:36→17:11)
[2022-08-15 12:57] LABS: Bilirubin Direct 1.7 mg/dL (0.0-0.5); Ethanol 132 mg/dL
[2022-08-15 13:07] LABS: Lipase 398 U/L (8-78)
[2022-08-15] MEDS: iohexoL 350 MG/ML 100 ML INFUS..BTL IV (13:41)
[2022-08-15 13:47] VITALS: BP 144/82; PULSE 105; RESP 18; O2SAT 96
--- NOTE | 2022-08-15 14:14 | P.CONGS_ITS ---
History of Present Illness Consult details Consult date: 08/15/22 Reason for consult: abdominal pain Narrative: 52-year-old male patient presenting to the emergency department with complaints of abdominal pain. At the time of my examination the patient was sleeping due to narcotics. History is obtained from his father who is at the bedside. Patient is reported to have have severe pain mainly in the epigastrium and right upper quadrant which increased in severity over the last day. Patient has a long history of alcohol abuse and is reported to drink approximately 40 beers daily. There is no reported drug use although he is currently on Suboxone in his medication list. The patient also apparently smokes 4 packs of cigarettes that he rolls himself daily. Workup in the emergency department revealed a WBC of 11.2. Total bilirubin was 2.4, direct bilirubin 1.7, alkaline phosphatase 411, AST 1443, and lipase of 398. CT abdomen and pelvis appears to show a markedly dilated gallbladder possibly with pericholecystic fluid. Radiology report is not available at the time of this dictation although he does appear to be inflammation surrounding the pancreas as well. Review of Systems Review of Systems: Yes Unobtainable due to mental condition and Unobtainable due to mental status PMF Past Medical History Medical History Abdominal hernia Alcohol use Anxiety COPD (chronic obstructive pulmonary disease) Epidermal cyst History of substance abuse Pulmonary emphysema Smoker Varicose veins of both lower extremities Family History Family History Father CVD (cardiovascular disease) Mother Rheumatoid arthritis Sister No problems noted. Maternal Uncle Prostate cancer Maternal Uncle Lung cancer Colon cancer Surgical History Surgical History No pertinent past surgical history Social History Social History Household Members: Friend(s) Housing: Apartment Are you a primary healthcare representative to a significant other at home: No Do you presently have visiting nurse or other home services: No Alcohol intake: current Alcohol intake frequency: 3 or more drinks per day Alcohol type: beer Patient Tobacco Use Status: Current everyday Tobacco user Tobacco use type: Cigarette Cigarette Packs Per Day: 2 Cigarettes Per Day: 40.0 Years Smoked: 30 e-Cigarette/Vaping Use: Never Used Second Hand Smoke Exposure: Yes Advance Directives: No Advance Directives Information Provided: No service: No Current occupational status: employed Current occupation: rt hand / golf course Cognitive needs: No Hearing needs: No Vision needs: Yes Meds Allergies Allergy/AdvReac Type Severity Reaction Status Date / Time Sulfa (Sulfonamide AdvReac Intermediate NAUSEA & Verified 08/15/22 11:00 Antibiotics) VOMITING [SULFA (SULFONAMIDE ANTIBIOTICS)] doxycycline AdvReac Mild Vomiting Verified 08/15/22 11:00 Active Medications: Current Medications Sodium Chloride (Ns) 1,000 mls @ 999 mls/hr IV .Q1H1M SURESH Stop: 08/15/22 14:45 Pharmacy Consult (Consult Rx Perform Med Rec) 1 each MISCELLANE ONCE PRN PRN Reason: Consult order Home Medications Medication Instructions Recorded Confirmed Last Taken Type buprenorphine 8 mg-naloxone 2 mg 1 film sublingual BID 08/10/20 08/15/22 Unknown History sublingual film (Suboxone) multivitamin 1 tab PO DAILY 09/05/21 07/30/22 Unknown History Physical Exam Vital Signs: Vital Signs: Last Vital Signs Temp 98 F 08/15/22 11:00 Pulse 105 H 08/15/22 13:47 Resp 18 08/15/22 13:47 BP 144/82 H 08/15/22 13:47 Pulse Ox 96 08/15/22 13:47 O2 Del Method 08/15/22 13:47 BMI result Body Mass Index 20.3 Const: General: ill appearing, intoxicated appearing and patient obtunded Nutritional Appearance: average body habitus Orientation/consciousness: patient obtunded Limitations: altered mental status HEENT: Other: Stevo complexion Neck: Neck: Yes no JVD Resp: Other: Snoring, breathing comfortably on room air, no tachypnea Cardio: Other: Tachycardic Jugular venous distension: no JVD Rate: regular rate Rhythm: regular rhythm GI: Other: Patient is obtunded, not responding to palpation of abdomen Inspection: Yes normal to inspection Palpation (GI): Soft to palpation, Tenderness to palpation present (GI), Guarding due to palpation present (GI) and Rigid due to palpation Percussion: Yes normal to percussion Auscultation: normal bowel sounds Skin: General skin exam: dry skin Rashes: no rashes Neuro: General: patient obtunded Extrem: General: Yes capillary refill normal and Yes no pedal edema Results Labs 08/15/22 11:29 08/15/22 11:29 Labs: Abnormal lab results 08/15/22 08/15/22 Range/Units 11:29 11:29 WBC 11.2 H (4.8-10.8) X10*3/uL RBC 4.14 L (4.60-5.80) X10*6/uL Hgb 13.6 L (14.0-18.0) g/dl Hct 37.8 L (42.0-52.0) % MPV 9.0 L (9.4-12.4) fL Immature Gran % (Auto) 0.8 H (0.0-0.4) % Neut % (Auto) 87.1 H (45-73) % Lymph % (Auto) 3.9 L (20-40) % Lymph # (Auto) 0.4 L (1.2-4.9) X10*3/uL Abs Immat Gran (auto) 0.09 H (0.00-0.03) X10*3/uL Absolute Neuts (auto) 9.8 H (2.0-8.3) x10*3/uL Sodium 130 L (135-145) mmol/L Chloride 89 L (96-108) mmol/L BUN < 3 L (9-16) mg/dL Fasting Glucose 121 H (60-99) mg/dL Total Bilirubin 2.4 H (0.0-1.0) mg/dL Direct Bilirubin 1.7 H (0.0-0.5) mg/dL AST 1443 H (5-37) U/L ALT 313 H (0-40) U/L Alkaline Phosphatase 411 H (39-117) U/L Albumin 3.3 L (3.5-5.0) g/dL Lipase 398 H (8-78) U/L Short CBC 08/15/22 Range/Units 11:29 WBC 11.2 H (4.8-10.8) X10*3/uL Hgb 13.6 L (14.0-18.0) g/dl Hct 37.8 L (42.0-52.0) % Plt Count 191 (160-400) X10*3/uL BMP 08/15/22 11:29 Sodium 130 L Potassium 3.3 D Chloride 89 L Carbon Dioxide 26 BUN < 3 L Creatinine 0.57 Calcium 8.6 Liver Function 08/15/22 Range/Units 11:29 Total Bilirubin 2.4 H (0.0-1.0) mg/dL Direct Bilirubin 1.7 H (0.0-0.5) mg/dL AST 1443 H (5-37) U/L ALT 313 H (0-40) U/L Alkaline Phosphatase 411 H (39-117) U/L Albumin 3.3 L (3.5-5.0) g/dL All other labs normal. Imaging Abdomen CT scan report/results: image reviewed CT scan - pelvis: image reviewed Assessment and Plan (1) Cholecystitis, acute with cholelithiasis: Status: Acute Will await CT findings. Ultrasound abdomen would be helpful as well as GI consultation. Elevated LFTs and pancreatitis, MRCP is recommended. Patient should be maintained NPO with IV hydration, monitor the LFTs. I am concerned about underlying liver disease given the patient's long history of alcohol abuse. (2) Alcohol use: Status: Acute Drinks 40 beers daily per patient's father. Will need DT prophylaxis (3) Smoker: Status: Acute (4) Deep vein thrombosis of left lower extremity: Status: Acute History of an unprovoked DVT with pulmonary embolus, on apixaban. Clotting history runs in the family including his father and grandfather. (5) Pulmonary emphysema: Qualifiers: Emphysema type: unspecified Qualified Code(s): J43.9 - Emphysema, unspecified Status: Acute Patient smokes at least 4 packs daily of hand rolled cigarettes. Has a previous history of lung abscess and COPD (6) History of substance abuse: Status: Acute Plan 52-year-old male patient with multiple medical problems including substance abuse, liver disease, COPD, now with possible acute cholecystitis. Will await ultrasound findings. Possible cholecystectomy once pancreatitis and elevated LFTs normalize. Recommended admission to hospitalist service, GI consultation. Time Spent With Patient Time: Total time managing care of this patient today ____ minutes. Procedures Date of Service Date of Service: 08/15/22
[2022-08-15 14:17] LABS: D Dimer High Sensitivity 633 NG/ML
[2022-08-15 14:47] LABS: Influenza A PCR NEGATIVE (Negative); Influenza B PCR NEGATIVE (Negative); Resp Syncy Virus RNA Qual PCR NEGATIVE (Negative); SARS COV2 PCR INHOUSE NEGATIVE (Negative)
[2022-08-15] MEDS: Piperacillin Sodium/Tazobactam 4.5 GM in 0.9 % Sodium Chloride 100 ML IV (15:27)
--- NOTE | 2022-08-15 16:06 | PHA.MEDREC ---
Pharmacy Consult ? Medication Reconciliation Pharmacy has completed the medication reconciliation. Completed med rec based on claim history and patient information
[2022-08-15 16:20] VITALS: BP 158/97; PULSE 98; RESP 18; O2SAT 95
--- NOTE | 2022-08-15 17:26 | PC.NURSE ---
please call mom with any update Name is Herlinda Gibbons-- [phone]
--- NOTE | 2022-08-15 17:42 | PM.IMHP ---
History of Present Illness Date of Service: 08/15/22 Chief Complaint: Abdominal pain A 52 years old male with PMH of alcohol abuse, COPD, COPD, substance abuse, smoking among others who presents to the hospital complaining of abdominal pain for 2 days. The patient reports that he has been drinking heavily for the last few days approximately 20-40 can of beer daily. Reported start to have the pain yesterday morning but he kept drinking the last 1 was earlier this morning. Pain is epigastric going to his back associated with nausea but no vomiting. Denies any fever, chills, chest pain, palpitation, change in bowel habit or urinary symptoms. In the [place] [id number] with transaminitis and elevated bilirubin. CT scan of the abdomen was consistent with dilated gallbladder and possible cholecystitis with unremarkable pancreas but elevated lipase level. Evaluated by Gastroenterology and surgery team who recommended admission to the hospital and close monitoring for alcohol withdrawal with possible need for surgical intervention for cholecystectomy. Review of Systems Review of Systems: No fever, chills but reports generalized weakness No chest pain, palpitation No shortness of breath or coughing Having abdominal pain, with mild nausea but no vomiting No urinary symptoms No any rash or wounds PMFSH Medical History Abdominal hernia Alcohol use Anxiety COPD (chronic obstructive pulmonary disease) Epidermal cyst History of substance abuse Pulmonary emphysema Smoker Varicose veins of both lower extremities Family History Father CVD (cardiovascular disease) Mother Rheumatoid arthritis Sister No problems noted. Maternal Uncle Prostate cancer Maternal Uncle Lung cancer Colon cancer Surgical History No pertinent past surgical history Social History Household Members: Friend(s) Housing: Apartment Are you a primary doggy daycare activities director to a significant other at home: No Do you presently have visiting nurse or other home services: No Alcohol intake: current Alcohol intake frequency: 3 or more drinks per day Alcohol type: beer Patient Tobacco Use Status: Current everyday Tobacco user Tobacco use type: Cigarette Cigarette Packs Per Day: 2 Cigarettes Per Day: 40.0 Years Smoked: 30 e-Cigarette/Vaping Use: Never Used Second Hand Smoke Exposure: Yes Advance Directives: No Advance Directives Information Provided: No service: No Current occupational status: employed Current occupation: rt hand / golf course Cognitive needs: No Hearing needs: No Vision needs: Yes Meds Allergies Allergy/AdvReac Type Severity Reaction Status Date / Time Sulfa (Sulfonamide AdvReac Intermediate NAUSEA & Verified 08/15/22 11:00 Antibiotics) VOMITING [SULFA (SULFONAMIDE ANTIBIOTICS)] doxycycline AdvReac Mild Vomiting Verified 08/15/22 11:00 Active Medications: Current Medications Pharmacy Consult (Consult Rx Perform Med Rec) 1 each MISCELLANE ONCE PRN PRN Reason: Consult order Home Medications Medication Instructions Recorded Confirmed Last Taken Type buprenorphine 8 mg-naloxone 2 mg 1 film sublingual BID 08/10/20 08/15/22 Unknown History sublingual film (Suboxone) multivitamin 1 tab PO DAILY 09/05/21 08/15/22 Unknown History Physical Exam Vital Signs and Narrative: Vital Signs: Last Vital Signs Temp 98 F 08/15/22 11:00 Pulse 98 08/15/22 16:20 Resp 18 08/15/22 16:20 BP 158/97 H 08/15/22 16:20 Pulse Ox 95 08/15/22 16:20 O2 Del Method 08/15/22 16:20 BMI result Body Mass Index 20.3 Const: Other: Constitutional : Awake, interactive, underweight, not in distress Neck : Normal inspection, Supple Cardiovascular : RRR, no JVP, no lower extremity edema Respiratory : good bilateral air entry, no crackles, wheezes or rhonchi Gastrointestinal: soft, lax, Normal bowel sounds, epigastric tenderness along with right upper quadrant, no surgical signs or McBurney/Segundo spot Skin : Warm, Dry Neurological : Alert & oriented x3, No focal deficit Results Labs 08/15/22 11:29 08/15/22 11:29 Labs: Laboratory Results - last 24 hr 08/15/22 08/15/22 08/15/22 11:29 11:29 11:29 MCV 91.3 MCH 32.9 MCHC 36.0 RDW 12.7 Plt Count 191 MPV 9.0 L Immature Gran % (Auto) 0.8 H Neut % (Auto) 87.1 H Lymph % (Auto) 3.9 L [place] % (Auto) 7.8 Eos % (Auto) 0.1 Baso % (Auto) 0.3 Lymph # (Auto) 0.4 L [place] # (Auto) 0.9 Eos # (Auto) 0.0 Baso # (Auto) 0.0 Abs Immat Gran (auto) 0.09 H Absolute Neuts (auto) 9.8 H Absolute Nucleated RBC 0.000 Nucleated RBC % (auto) 0.0 D-Dimer High Sensitivty Anion Gap 18 Estim Creat Clear Calc 145.8 Estimated GFR > 60 Fasting Glucose 121 H Calcium 8.6 Total Bilirubin 2.4 H Direct Bilirubin 1.7 H AST 1443 H ALT 313 H Alkaline Phosphatase 411 H Troponin I High Sens 4.2 Total Protein 7.2 Albumin 3.3 L Lipase 398 H Ethyl Alcohol 132 Influenza Type A (PCR) Influenza Type B (PCR) RSV RNA Qual (PCR) SARS-CoV-2 RNA (RT-PCR) 08/15/22 08/15/22 13:53 13:56 MCV MCH MCHC RDW Plt Count MPV Immature Gran % (Auto) Neut % (Auto) Lymph % (Auto) [place] % (Auto) Eos % (Auto) Baso % (Auto) Lymph # (Auto) [place] # (Auto) Eos # (Auto) Baso # (Auto) Abs Immat Gran (auto) Absolute Neuts (auto) Absolute Nucleated RBC Nucleated RBC % (auto) D-Dimer High Sensitivty 633 Anion Gap Estim Creat Clear Calc Estimated GFR Fasting Glucose Calcium Total Bilirubin Direct Bilirubin AST ALT Alkaline Phosphatase Troponin I High Sens Total Protein Albumin Lipase Ethyl Alcohol Influenza Type A (PCR) NEGATIVE Influenza Type B (PCR) NEGATIVE RSV RNA Qual (PCR) NEGATIVE SARS-CoV-2 RNA (RT-PCR) NEGATIVE Imaging Radiologist's Impressions: Impressions Abdomen/Pelvis CT 08/15/22 13:43 IMPRESSION: Abnormal appearing gallbladder. The gallbladder is enlarged, filled with high attenuation material and there is a small amount of pericholecystic fluid. Cholecystitis, gallbladder mass and hemorrhage in the gallbladder should be considered. Follow-up abdominal ultrasound has already been ordered. Stable cavitary lung lesions from recent chest CT. Patient has history of lung abscesses. Distended fluid-filled loops of small bowel probably representing an ileus. Bowel wall thickening of the colon. This may be secondary to low albumin or liver disease. Very distended bladder. Fleischner guidelines were followed. Assessment and Plan (1) Acute pancreatitis: Status: Acute (2) Acute alcoholic hepatitis: Status: Acute (3) Alcohol withdrawal: Status: Acute (4) Cholecystitis, acute with cholelithiasis: Status: Acute Plan A 52 years old male with PMH of alcohol abuse, COPD, COPD, substance abuse, smoking among others who presents to the hospital complaining of abdominal pain for 2 days. Acute cholecystitis Seen on CT scan, pending ultrasound Inflammation, mass or bleeding within differential Consider HIDA scan or MRCP pending ultrasound results Cover with antibiotic of ceftriaxone and Flagyl GI and surgery team following Acute pancreatitis Elevated lipase with epigastric pain Treat with IV fluid Keep NPO for now Alcohol abuse and withdrawal Last beer this morning Start phenobarbital protocol Folic acid and thiamine Acute alcoholic hepatitis Secondary to alcohol abuse with elevated ALT to AST Avoid hepatic toxic medications Monitor LFT History of clot Hold apixaban for possible surgical intervention Start full-dose Lovenox for now DVT PPX Lovenox The patient will need 2. Overnight hospital stay for evaluation and treatment of acute pancreatitis and cholecystitis pending possible surgical intervention Time Spent With Patient Time: Total time managing care of this patient today ____ minutes. Quality Stroke Does the patient have a stroke diagnosis?: No VTE Prior VTE?: No VTE Risk Level:: Medical - moderate - high VTE Device Contraindication: Treatment Not Indicated VTE Drug Contraindication: N/A - Med Ordered
[2022-08-15] MEDS: cefTRIAXone sodium 1 GM in 0.9 % Sodium Chloride 50 ML IV (18:01)
[2022-08-15] MEDS: Morphine Sulfate 4 MG/ML CARTRIDGE IVPUSH (18:02)
[2022-08-15] MEDS: metroNIDAZOLE/NS 500 MG/100 ML PIGGYBACK 100 MG IV (18:23)
[2022-08-15] MEDS: Thiamine HCL 100 MG TABLET PO (18:29)
[2022-08-15] MEDS: Folic Acid 1 MG TABLET PO (18:29)
[2022-08-15] MEDS: PHENobarbitaL sodium 130 MG/ML IM ONCE 372 MG IM (18:32)
[2022-08-15] MEDS: Lactated Ringers 1,000 ML 150 ML IVCONT (19:15)
[2022-08-15 19:20] VITALS: BP 143/96; PULSE 117; RESP 20; TEMP 36.9; O2SAT 95
[2022-08-15 21:30] VITALS: BP 145/102; PULSE 121
[2022-08-15] MEDS: Enoxaparin Sodium 100 MG/ML SYRINGE 70 MG SUBCUT (21:42)
[2022-08-15] MEDS: PHENobarbitaL sodium 130 MG/ML VIAL IM Q3Hx2 279 MG IM (21:43)
--- NOTE | 2022-08-15 22:50 | PC.NURSE ---
This publications writer assumed care of this Pt at 1900. Pt A&Ox4, reports 7/10 constant burning feeling to ABD. IV fluids running as ordered. Pt visibly shaking, CIWA documented Q2H, meds given as documented. Pt tender to RLQ ABD, hypoactive bowel sounds, reports last BM was a 1 days ago.
[2022-08-15 23:51] VITALS: BP 174/77; PULSE 134; RESP 20; O2SAT 94
[2022-08-16] VITALS (7 sets, daily range): BP systolic 121–150; BP diastolic 80–98; PULSE 85–131; RESP 14–20; TEMP 36.3–37; O2SAT 90–96
--- NOTE | 2022-08-16 | ECG_ITS ---
Test Reason : TACHYCARDIA Blood Pressure : / mmHG Vent. Rate : 114 BPM Atrial Rate : 114 BPM P-R Int : 216 ms QRS Dur : 092 ms QT Int : 342 ms P-R-T Axes : 100 036 076 degrees QTc Int : 471 ms Sinus tachycardia with 1st degree A-V block Anteroseptal infarct (cited on or before 05-SEP-2021) Abnormal ECG When compared with ECG of 15-AUG-2022 11:09, [place] interval has increased Referred By: Leora Puckett Electronically Signed By:NAVARRO FLORES
[2022-08-16] MEDS: 0.9 % Sodium Chloride Flush 3 ML SYRINGE IVFLUSH ×2 (00:52→09:00)
[2022-08-16] MEDS: metroNIDAZOLE/NS 500 MG/100 ML PIGGYBACK 100 MG IV ×3 (00:53→19:37)
[2022-08-16] MEDS: PHENobarbitaL sodium 130 MG/ML VIAL IM Q3Hx2 279 MG IM (00:57)
[2022-08-16] MEDS: Lactated Ringers 1,000 ML 150 ML IVCONT ×3 (02:06→20:22)
[2022-08-16 06:34] LABS: Hematocrit 38.8 % (42.0-52.0); Mean Corpuscular HGB Conc 36.1 g/dl (31.0-36.0); Mean Corpuscular Hemoglobin 32.3 pg (27.0-33.0); Mean Corpuscular Volume 89.4 fL (80.0-98.0); Platelet Count 156 X10*3/uL (160-400); Red Blood Count 4.34 X10*6/uL (4.60-5.80); Red Cell Distribution Width 12.6 % (11.0-16.0); White Blood Count 8.7 X10*3/uL (4.8-10.8)
[2022-08-16 07:16] LABS: Anion Gap 16 (12-20); Blood Urea Nitrogen 3 mg/dL (9-16); Calcium 8.1 mg/dL (8.4-10.2); Carbon Dioxide 26 mmol/L (22-29); Chloride 94 mmol/L (96-108); Creatinine Clr Calc Pharmacy 169.7; Estimated Glomerular Filt Rate > 60; Glucose Random 85 mg/dL (60-115); Sodium 133 mmol/L (135-145)
--- NOTE | 2022-08-16 07:39 | MHC.EDTECH ---
EKG completed and sent to hospitalist
[2022-08-16 08:01] LABS: Alanine Aminotransferase 647 U/L (0-40); Albumin Level 2.8 g/dL (3.5-5.0); Alkaline Phosphatase 700 U/L (39-117); Aspartate Amino Transferase 1979 U/L (5-37); Bilirubin Direct 2.6 mg/dL (0.0-0.5); Bilirubin Total 3.5 mg/dL (0.0-1.0); Total Protein 6.5 g/dL (6.5-8.0)
--- NOTE | 2022-08-16 08:08 | MHC.EDTECH ---
Pt linens changed. Pt resting comfortably. Bed in low, locked position. Call hernandez in reach, able to make needs known.
[2022-08-16] MEDS: Enoxaparin Sodium 100 MG/ML SYRINGE 70 MG SUBCUT (08:58)
[2022-08-16] MEDS: Thiamine HCL 100 MG TABLET PO (08:59)
[2022-08-16] MEDS: Potassium Chloride Packet 20 MEQ PACKET 40 MEQ PO ×2 (08:59→10:09)
[2022-08-16] MEDS: PHENobarbitaL 30 MG TABLET 60 MG PO ×2 (08:59→20:19)
[2022-08-16] MEDS: Folic Acid 1 MG TABLET PO (08:59)
--- NOTE | 2022-08-16 09:00 | PC.NURSE ---
pt sleeping but arousable to voice command and gently touch, respirations even and unlabored, no visible tremor at this time, pt is reporting slight pain in the lower abd denies n/v/. sinus tach on the monitor at 112-105.
--- NOTE | 2022-08-16 09:15 | PM.PNGS ---
Subjective Subjective Date of Service: 08/16/22 Interval history: Patient feels much improved this morning. Does report some mild discomfort in the right upper quadrant and right lower quadrant. Denies nausea or vomiting. Physical Exam Vital Signs: Vital Signs: Last Vital Signs Temp 98.4 F 08/16/22 06:11 Pulse 126 H 08/16/22 07:29 Resp 14 08/16/22 07:29 BP 129/96 H 08/16/22 07:29 Pulse Ox 96 08/16/22 07:29 O2 Del Method 08/16/22 07:29 BMI result Body Mass Index 20.3 Const: General: no acute distress Nutritional Appearance: well nourished HEENT: Head: Yes normocephalic and Yes atraumatic Eyes: Sclerae: sclerae normal GI: Inspection: Yes normal to inspection Palpation (GI): Soft to palpation, Tenderness to palpation present (GI) in the RUQ; Segundo's sign negative, no guarding and not rigid Skin: General skin exam: no rashes or lesions noted and no jaundice Objective Data Active Medications Acetaminophen (Acetaminophen 325 Mg Tablet) 650 mg PO Q6H PRN PRN Reason: Pain, Mild (Pain Scale 1-3) Albuterol/Ipratropium (Albuterol/Iprat 2.5/0.5mg 3 Ml Ampul.Neb) 3 ml INHALE Q6H PRN PRN Reason: shortness of breath/wheezing Enoxaparin Sodium (Enoxaparin Sodium 100 Mg/Ml Syringe) 70 mg 1 mg/kg (70 mg) SUBCUT Q12H [facility] Last Admin: 08/16/22 08:58 Dose: 70 mg Documented By: MONA Folic Acid (Folic Acid 1 Mg Tablet) 1 mg PO DAILY [facility] Last Admin: 08/16/22 08:59 Dose: 1 mg Documented By: MONA Lactated Ringer's (Lr) 1,000 mls @ 150 mls/hr IVCONT .Q6H40M [facility] Last Admin: 08/16/22 02:06 Dose: 150 mls/hr Documented By: PORSHA Ceftriaxone Sodium 1 gm/ (Sodium Chloride) 50 mls @ 100 mls/hr IV Q24H [facility] Last Infusion: 08/15/22 19:16 Dose: 0 mls/hr Documented By: PORSHA Metronidazole (Flagyl) 500 mg in 100 mls @ 100 mls/hr IV Q8H [facility] Last Infusion: 08/16/22 02:07 Dose: 0 mls/hr Documented By: PORSHA Morphine Sulfate (Morphine Sulfate 4 Mg/Ml Cartridge) 4 mg IVPUSH Q4H PRN; Protocol PRN Reason: Pain, Severe (Pain Scale 7-10) Ondansetron HCl (Ondansetron Hcl 4 Mg/2 Ml Vial) 4 mg IVPUSH Q8H PRN PRN Reason: Nausea and Vomiting Pharmacy Consult (Consult Rx Perform Med Rec) 1 each MISCELLANE ONCE PRN PRN Reason: Consult order Pharmacy Consult (Consult Rx Etoh Phenob Im/Po) 1 each MISCELLANE ONCE PRN; Protocol PRN Reason: Consult order Phenobarbital (Phenobarbital 30 Mg Tablet) 60 mg PO BID [facility]; Protocol Stop: 08/17/22 21:01 Last Admin: 08/16/22 08:59 Dose: 60 mg Documented By: MONA Phenobarbital (Phenobarbital 30 Mg Tablet) 30 mg PO BID [facility]; Protocol Stop: 08/19/22 21:01 Phenobarbital (Phenobarbital 30 Mg Tablet) 30 mg PO DAILY [facility]; Protocol Stop: 08/21/22 09:01 Potassium Chloride (Potassium Chloride Packet 20 Meq Packet) 40 meq PO Q2H [facility] Stop: 08/16/22 09:46 Last Admin: 08/16/22 08:59 Dose: 40 meq Documented By: MONA Sodium Chloride (0.9 % Sodium Chloride Flush 3 Ml Syringe) 3 ml IVFLUSH QSHIFT [facility] Last Admin: 08/16/22 09:00 Dose: 3 ml Documented By: MONA Thiamine HCl (Thiamine Hcl 100 Mg Tablet) 100 mg PO DAILY [facility] Last Admin: 08/16/22 08:59 Dose: 100 mg Documented By: MONA Labs 08/16/22 06:08 08/16/22 06:08 Labs: Laboratory Results - last 24 hr 08/15/22 08/15/22 08/15/22 11:29 11:29 11:29 MCV 91.3 MCH 32.9 MCHC 36.0 RDW 12.7 Plt Count 191 MPV 9.0 L Immature Gran % (Auto) 0.8 H Neut % (Auto) 87.1 H Lymph % (Auto) 3.9 L [place] % (Auto) 7.8 Eos % (Auto) 0.1 Baso % (Auto) 0.3 Lymph # (Auto) 0.4 L [place] # (Auto) 0.9 Eos # (Auto) 0.0 Baso # (Auto) 0.0 Abs Immat Gran (auto) 0.09 H Absolute Neuts (auto) 9.8 H Absolute Nucleated RBC 0.000 Nucleated RBC % (auto) 0.0 D-Dimer High Sensitivty Anion Gap 18 Estim Creat Clear Calc 145.8 Estimated GFR > 60 Random Glucose Fasting Glucose 121 H Calcium 8.6 Total Bilirubin 2.4 H Direct Bilirubin 1.7 H AST 1443 H ALT 313 H Alkaline Phosphatase 411 H Troponin I High Sens 4.2 Total Protein 7.2 Albumin 3.3 L Lipase 398 H Ethyl Alcohol 132 Influenza Type A (PCR) Influenza Type B (PCR) RSV RNA Qual (PCR) SARS-CoV-2 RNA (RT-PCR) 08/15/22 08/15/22 08/16/22 13:53 13:56 06:08 MCV 89.4 MCH 32.3 MCHC 36.1 H RDW 12.6 Plt Count 156 L MPV 10.0 Immature Gran % (Auto) Neut % (Auto) Lymph % (Auto) [place] % (Auto) Eos % (Auto) Baso % (Auto) Lymph # (Auto) [place] # (Auto) Eos # (Auto) Baso # (Auto) Abs Immat Gran (auto) Absolute Neuts (auto) Absolute Nucleated RBC 0.000 Nucleated RBC % (auto) 0.0 D-Dimer High Sensitivty 633 Anion Gap Estim Creat Clear Calc Estimated GFR Random Glucose Fasting Glucose Calcium Total Bilirubin Direct Bilirubin AST ALT Alkaline Phosphatase Troponin I High Sens Total Protein Albumin Lipase Ethyl Alcohol Influenza Type A (PCR) NEGATIVE Influenza Type B (PCR) NEGATIVE RSV RNA Qual (PCR) NEGATIVE SARS-CoV-2 RNA (RT-PCR) NEGATIVE 08/16/22 06:08 MCV MCH MCHC RDW Plt Count MPV Immature Gran % (Auto) Neut % (Auto) Lymph % (Auto) [place] % (Auto) Eos % (Auto) Baso % (Auto) Lymph # (Auto) [place] # (Auto) Eos # (Auto) Baso # (Auto) Abs Immat Gran (auto) Absolute Neuts (auto) Absolute Nucleated RBC Nucleated RBC % (auto) D-Dimer High Sensitivty Anion Gap 16 Estim Creat Clear Calc 169.7 Estimated GFR > 60 Random Glucose 85 Fasting Glucose Calcium 8.1 L Total Bilirubin 3.5 H Direct Bilirubin 2.6 H AST 1979 H ALT 647 H Alkaline Phosphatase 700 H Troponin I High Sens Total Protein 6.5 Albumin 2.8 L Lipase Ethyl Alcohol Influenza Type A (PCR) Influenza Type B (PCR) RSV RNA Qual (PCR) SARS-CoV-2 RNA (RT-PCR) Imaging US - abdomen: Radiologist's impression: Impressions Abdomen/Pelvis CT 08/15/22 13:43 IMPRESSION: Abnormal appearing gallbladder. The gallbladder is enlarged, filled with high attenuation material and there is a small amount of pericholecystic fluid. Cholecystitis, gallbladder mass and hemorrhage in the gallbladder should be considered. Follow-up abdominal ultrasound has already been ordered. Stable cavitary lung lesions from recent chest CT. Patient has history of lung abscesses. Distended fluid-filled loops of small bowel probably representing an ileus. Bowel wall thickening of the colon. This may be secondary to low albumin or liver disease. Very distended bladder. Fleischner guidelines were followed. Abdomen Ultrasound 08/15/22 16:54 IMPRESSION: 1. Markedly distended/dilated gallbladder containing extensive sludge, hemorrhage or sloughed membranes and small amount of pericholecystic and perihepatic fluid. No significant gallbladder wall thickening and the patient did not have a sonographic Segundo sign at time of the exam to suggest more specific evidence of acute cholecystitis. The possibility of cholecystitis cannot be excluded however given the appearance of the gallbladder. Hepatobiliary scan may be helpful. 2. Dilated proximal common bile duct measuring up to 1.1 cm in diameter. The distal CBD is obscured by bowel gas precluding its assessment. 3. Hepatomegaly and hepatic steatosis or hepatocellular disease. No liver lesion. Procedures Date of Service Date of Service: 08/16/22 Progress Note: A&P Assessment and plan (1) Acute pancreatitis: Status: Acute (2) Acute alcoholic hepatitis: Status: Acute (3) Cholecystitis: Status: Acute Plan 52-year-old male patient presenting with severe abdominal pain in the right upper quadrant with a history of excessive alcohol intake. Review of CT and ultrasound workup does reveal a large gallbladder however no gallstones noted by ultrasound. Possibility of sludge verses blood in the gallbladder is noted. No sonographic Segundo sign was identified. The common bile duct is marginally dilated therefore further workup with MRCP would be helpful to evaluate for CBD obstruction. Symptoms may be related to alcoholic hepatitis/pancreatitis. If MRCP negative, patient could be restarted on a diet. Time Spent With Patient Time: Total time managing care of this patient today ____ minutes. Quality Stroke Does the patient have a stroke diagnosis?: No VTE Prior VTE?: No VTE Risk Level:: Medical - moderate - high VTE Device Contraindication: Treatment Not Indicated VTE Drug Contraindication: N/A - Med Ordered
--- NOTE | 2022-08-16 10:06 | MHC.CM.PN ---
CM MET WITH PTS FATHER AT BEDSIDE PT WAS SLEEPING PT LIVES IN AN APARTMENT AND HAS A BOARDER, HOWEVER PTS FATHER STATES THAT BOARDER IS LESS THAN USELESS . HE REPORTS THE PT IS INDEPENDENT, WORKS AND DRIVES HE HAS NO DME AND NO SERVICES PT IS COVID [place] HE DOES NOT HAVE A HCP PCP: TORRES SHIELDS DCP: HOME NO SERVICES FAMILY TRANSPORT
--- NOTE | 2022-08-16 10:15 | P.CNGI_ITS ---
History of Present Illness Data of Consult Service Date: 08/16/22 Requesting physician: Leora Puckett Primary Care Provider: Lizandro Teran MD HPI Reason for consult: abnormal LFT and biliary imaging 52 years old male with PMH of Lupus, alcohol abuse, COPD, substance abuse, tobacco use who I am seeing for assessment for abn LFT and imaging. He initially presented with 2 d hx of severe nagging epigastric and ruq pain radiating into the back. associated with nausea, but no vomiting. He denies any exacerbating or relieving factors. He never had this pain before. He admits to background poor appetite and unintended weight loss over 6 months of about 15#. He is a self admitted alcoholic and drinks 20 beers daily for about 5-6 years due to marital issues. Denies any fever, chills, chest pain, palpitation, change in bowel habit or urinary symptoms. Not taking nsaids bu has lupus also on apixiban Labs: elevated WBC of 11.2 with transaminitis and elevated bilirubin 3.5 and lipase Imaging: CT: dilated gallbladder and possible cholecystitis with unremarkable pancreas US: dilated proximal CBD, ?sludge or blood in GB whihc is distended MRCP: ?acute hemorrhagic cholecystitis, mass effect of GB onto the CHD, pericholecystic fluid Review of Systems Review of Systems: Constitutional : + Weight loss, No Fever, No Chills ENT/Mouth : No sore throat, No Rhinorrhea Eyes: No Swelling, No Redness Cardiovascular : No Chest Pain, No SOB, No Edema Respiratory : No Cough, No Sputum, No Wheezing Gastrointestinal : see HPI Genitourinary : NO Dysuria, No Urinary Frequency, No Hematuria, No Urgency Musculoskeletal : No joint pain, No Myalgias, No Joint Swelling Skin : No Skin Lesions, No rash Neuro : No Weakness, No Numbness, No Dizziness, No Headache Psych : No Anxiety/Panic, No Depression Heme/Lymph: No Bruising, No Lymphadenopathy Endocrine : No Polyuria, No Polydipsia All other systems reviewed and are negative. [facility] Past Medical History Medical History Abdominal hernia Alcohol use Anxiety COPD (chronic obstructive pulmonary disease) Epidermal cyst History of substance abuse Pulmonary emphysema Smoker Varicose veins of both lower extremities Family History Family History Father CVD (cardiovascular disease) Mother Rheumatoid arthritis Sister No problems noted. Maternal Uncle Prostate cancer Maternal Uncle Lung cancer Colon cancer Surgical History Surgical History No pertinent past surgical history Social History Social History Household Members: Friend(s) Housing: House Housing Other:: with roomate Are you a primary managed care analyst to a significant other at home: No Do you presently have visiting nurse or other home services: No Alcohol intake: current Alcohol intake frequency: 0-2 drinks per day Alcohol type: beer Patient Tobacco Use Status: Current everyday Tobacco user Tobacco use type: Cigarette Cigarette Packs Per Day: 2 Cigarettes Per Day: 53 Years Smoked: 31 e-Cigarette/Vaping Use: Currently Using Second Hand Smoke Exposure: No service: No Current occupational status: employed Current occupation: rt hand / golf [employer] Cognitive needs: No Hearing needs: No Vision needs: Yes Meds Allergies Allergy/AdvReac Type Severity Reaction Status Date / Time Sulfa (Sulfonamide AdvReac Intermediate NAUSEA & Verified 08/15/22 11:00 Antibiotics) VOMITING [SULFA (SULFONAMIDE ANTIBIOTICS)] doxycycline AdvReac Mild Vomiting Verified 08/15/22 11:00 Active Medications: Current Medications Acetaminophen (Acetaminophen 325 Mg Tablet) 650 mg PO Q6H PRN PRN Reason: Pain, Mild (Pain Scale 1-3) Albuterol/Ipratropium (Albuterol/Iprat 2.5/0.5mg 3 Ml Ampul.Neb) 3 ml INHALE Q6H PRN PRN Reason: shortness of breath/wheezing Enoxaparin Sodium (Enoxaparin Sodium 100 Mg/Ml Syringe) 70 mg 1 mg/kg (70 mg) SUBCUT Q12H [facility] Last Admin: 08/16/22 08:58 Dose: 70 mg Folic Acid (Folic Acid 1 Mg Tablet) 1 mg PO DAILY [facility] Last Admin: 08/16/22 08:59 Dose: 1 mg Lactated Ringer's (Lr) 1,000 mls @ 150 mls/hr IVCONT .Q6H40M [facility] Last Admin: 08/16/22 02:06 Dose: 150 mls/hr Ceftriaxone Sodium 1 gm/ (Sodium Chloride) 50 mls @ 100 mls/hr IV Q24H [facility] Last Infusion: 08/15/22 19:16 Dose: Infused Metronidazole (Flagyl) 500 mg in 100 mls @ 100 mls/hr IV Q8H [facility] Last Admin: 08/16/22 10:09 Dose: 100 mls/hr Morphine Sulfate (Morphine Sulfate 4 Mg/Ml Cartridge) 4 mg IVPUSH Q4H PR[facility]; Protocol PRN Reason: Pain, Severe (Pain Scale 7-10) Ondansetron HCl (Ondansetron Hcl 4 Mg/2 Ml Vial) 4 mg IVPUSH Q8H PRN PRN Reason: Nausea and Vomiting Pharmacy Consult (Consult Rx Perform Med Rec) 1 each MISCELLANE ONCE PRN PRN Reason: Consult order Pharmacy Consult (Consult Rx Etoh Phenob Im/Po) 1 each MISCELLANE ONCE PRN; Protocol PRN Reason: Consult order Phenobarbital (Phenobarbital 30 Mg Tablet) 60 mg PO BID [facility]; Protocol Stop: 08/17/22 21:01 Last Admin: 08/16/22 08:59 Dose: 60 mg Phenobarbital (Phenobarbital 30 Mg Tablet) 30 mg PO BID [facility]; Protocol Stop: 08/19/22 21:01 Phenobarbital (Phenobarbital 30 Mg Tablet) 30 mg PO DAILY [facility]; Protocol Stop: 08/21/22 09:01 Sodium Chloride (0.9 % Sodium Chloride Flush 3 Ml Syringe) 3 ml IVFLUSH QSHIFT [facility] Last Admin: 08/16/22 09:00 Dose: 3 ml Thiamine HCl (Thiamine Hcl 100 Mg Tablet) 100 mg PO DAILY [facility] Last Admin: 08/16/22 08:59 Dose: 100 mg Home Medications Medication Instructions Recorded Confirmed Last Taken Type buprenorphine 8 mg-naloxone 2 mg 1 film sublingual BID 08/10/20 08/15/22 Unknown History sublingual film (Suboxone) multivitamin 1 tab PO DAILY 09/05/21 08/15/22 Unknown History Physical Exam Vital Signs: Vital Signs: Last Vital Signs Temp 98.4 F 08/16/22 06:11 Pulse 126 H 08/16/22 07:29 Resp 14 08/16/22 07:29 BP 129/96 H 08/16/22 07:29 Pulse Ox 96 08/16/22 07:29 O2 Del Method 08/16/22 07:29 BMI result Body Mass Index 20.3 EXAM: GENERAL: The patient is tremulous, thin, weak VITAL SIGNS:see workflow HEENT: Nonicteric sclerae, PERRLA, EOMI. Oropharynx clear. Moist mucous membranes. Conjunctivae appear well perfused. No thyroid mass. CHEST: Chest wall is nontender. HEART: Regular rate and rhythm without murmurs. LUNGS: Clear to auscultation bilaterally. ABDOMEN: Soft, positive bowel sounds, tender RUQ, no organomegaly.no flank tenderness SKIN: bruises on arms, pinkish livedo rash on arms NEUROLOGIC: Cranial nerves II-XII intact without motor/sensory deficit. Psych; anxious Results Labs 08/16/22 06:08 08/16/22 06:08 Labs: Short CBC 08/15/22 08/16/22 Range/Units 11:29 06:08 WBC 11.2 H 8.7 (4.8-10.8) X10*3/uL Hgb 13.6 L 14.0 (14.0-18.0) g/dl Hct 37.8 L 38.8 L (42.0-52.0) % Plt Count 191 156 L (160-400) X10*3/uL BMP 08/15/22 08/16/22 11:29 06:08 Sodium 130 L 133 L Potassium 3.3 D 3.0 L Chloride 89 L 94 L Carbon Dioxide 26 26 BUN < 3 L 3 L Creatinine 0.57 0.49 L Calcium 8.6 8.1 L Liver Function 08/15/22 08/16/22 Range/Units 11:29 06:08 Total Bilirubin 2.4 H 3.5 H (0.0-1.0) mg/dL Direct Bilirubin 1.7 H 2.6 H (0.0-0.5) mg/dL AST 1443 H 1979 H (5-37) U/L ALT 313 H 647 H (0-40) U/L Alkaline Phosphatase 411 H 700 H (39-117) U/L Albumin 3.3 L 2.8 L (3.5-5.0) g/dL Imaging MRI - abdomen: Attestation: I personally reviewed and interpreted this imaging study as follows: My impression: distended GB with pressure on CHD, also debris within the GB and fluid around the GB itself, no filling defects seen in CBD Assessment and Plan (1) Cholecystitis: Status: Acute (2) Acute alcoholic hepatitis: Status: Acute (3) Mirizzi's syndrome: Status: Acute Plan 1/ Acute RUQ/epigastric pain with abnormal imaging suggestive of possible sludge or blood contents in GB, maybe due to infectious cholecystitis or trauma. He al so appears to have Mirrizi syndrome with compression of CHD from the gallbladder which would account for the markedly elevated LFT> Its very rare to get that degree of elevation of AST/ALT from alcoholic hepatitis alone. PLAN: 1/ Hold eliquis, monitor HGB 2/ COnt with antibiotics 3/ CIWA and alcohol withdrawal protocol 4/ hold on ERCP at this time and f/u with surgery team as doing 5/ hold steroids even if suspicion of alcoholic hepatitis superimposed on top of current illness 6/ IV vitamins Time Spent With Patient Time: Total time managing care of this patient today ____ minutes. Procedures Date of Service Date of Service: 08/16/22
--- NOTE | 2022-08-16 10:45 | PC.NURSE ---
report given to cesia ortega
--- NOTE | 2022-08-16 10:56 | PC.NURSE ---
pt of to mri
--- NOTE | 2022-08-16 14:08 | HO.PM.IMPN ---
Subjective Subjective Date of Service: 08/16/22 Interval History: Seen and evaluated Feels more comfortable, still having tremors Denies any fever, chills Start reporting abdominal pain No other overnight events Review of Systems No fever, chills but reports generalized weakness No chest pain, palpitation No shortness of breath or coughing Having abdominal pain, with mild nausea but no vomiting No urinary symptoms No any rash or wounds Physical Exam Vital Signs: Vital Signs: Last Vital Signs Temp 97.7 F 08/16/22 12:13 Pulse 102 H 08/16/22 12:13 Resp 20 08/16/22 12:13 BP 136/98 H 08/16/22 12:13 Pulse Ox 95 08/16/22 12:13 O2 Del Method 08/16/22 12:13 BMI result Body Mass Index 20.3 Const: Other: Constitutional : Awake, interactive, underweight, not in distress Neck : Normal inspection, Supple Cardiovascular : RRR, no JVP, no lower extremity edema Respiratory : good bilateral air entry, no crackles, wheezes or rhonchi Gastrointestinal: soft, lax, Normal bowel sounds, less epigastric tenderness but still has right upper quadrant, with possible Segundo sign Skin : Warm, Dry Neurological : Alert & oriented x3, No focal deficit Objective Data Active Medications Acetaminophen (Acetaminophen 325 Mg Tablet) 650 mg PO Q6H PRN PRN Reason: Pain, Mild (Pain Scale 1-3) Albuterol/Ipratropium (Albuterol/Iprat 2.5/0.5mg 3 Ml Ampul.Neb) 3 ml INHALE Q6H PRN PRN Reason: shortness of breath/wheezing Folic Acid (Folic Acid 1 Mg Tablet) 1 mg PO DAILY [facility] Last Admin: 08/16/22 08:59 Dose: 1 mg Documented By: MONA Heparin Sodium (Porcine) (Heparin Sodium,Porcine 5,000 Unit/Ml Vial) 5,000 unit SUBCUT Q8H [facility] Lactated Ringer's (Lr) 1,000 mls @ 150 mls/hr IVCONT .Q6H40M [facility] Last Admin: 08/16/22 02:06 Dose: 150 mls/hr Documented By: PORSHA Ceftriaxone Sodium 1 gm/ (Sodium Chloride) 50 mls @ 100 mls/hr IV Q24H [facility] Last Infusion: 08/15/22 19:16 Dose: 0 mls/hr Documented By: PORSHA Metronidazole (Flagyl) 500 mg in 100 mls @ 100 mls/hr IV Q8H [facility] Last Admin: 08/16/22 10:09 Dose: 100 mls/hr Documented By: MONA Morphine Sulfate (Morphine Sulfate 4 Mg/Ml Cartridge) 4 mg IVPUSH Q4H PRN; Protocol PRN Reason: Pain, Severe (Pain Scale 7-10) Ondansetron HCl (Ondansetron Hcl 4 Mg/2 Ml Vial) 4 mg IVPUSH Q8H PRN PRN Reason: Nausea and Vomiting Pharmacy Consult (Consult Rx Perform Med Rec) 1 each MISCELLANE ONCE PRN PRN Reason: Consult order Pharmacy Consult (Consult Rx Etoh Phenob Im/Po) 1 each MISCELLANE ONCE PRN; Protocol PRN Reason: Consult order Phenobarbital (Phenobarbital 30 Mg Tablet) 60 mg PO BID [facility]; Protocol Stop: 08/17/22 21:01 Last Admin: 08/16/22 08:59 Dose: 60 mg Documented By: MONA Phenobarbital (Phenobarbital 30 Mg Tablet) 30 mg PO BID [facility]; Protocol Stop: 08/19/22 21:01 Phenobarbital (Phenobarbital 30 Mg Tablet) 30 mg PO DAILY [facility]; Protocol Stop: 08/21/22 09:01 Sodium Chloride (0.9 % Sodium Chloride Flush 3 Ml Sy[facility]) [facility] Last Admin: 08/16/22 09:00 Dose: 3 ml Documented By: MONA Thiamine HCl (Thiamine Hcl 100 Mg Tablet) 100 mg PO DAILY [facility] Last Admin: 08/16/22 08:59 Dose: 100 mg Documented By: MONA Labs 08/16/22 06:08 08/16/22 06:08 Labs: Laboratory Results - last 24 hr 08/15/22 08/15/22 08/16/22 13:53 13:56 06:08 MCV 89.4 MCH 32.3 MCHC 36.1 H RDW 12.6 Plt Count 156 L MPV 10.0 Absolute Nucleated RBC 0.000 Nucleated RBC % (auto) 0.0 D-Dimer High Sensitivty 633 Anion Gap Estim Creat Clear Calc Estimated GFR Random Glucose Calcium Total Bilirubin Direct Bilirubin AST ALT Alkaline Phosphatase Total Protein Albumin Influenza Type A (PCR) NEGATIVE Influenza Type B (PCR) NEGATIVE RSV RNA Qual (PCR) NEGATIVE SARS-CoV-2 RNA (RT-PCR) NEGATIVE 08/16/22 06:08 MCV MCH MCHC RDW Plt Count MPV Absolute Nucleated RBC Nucleated RBC % (auto) D-Dimer High Sensitivty Anion Gap 16 Estim Creat Clear Calc 169.7 Estimated GFR > 60 Random Glucose 85 Calcium 8.1 L Total Bilirubin 3.5 H Direct Bilirubin 2.6 H AST 1979 H ALT 647 H Alkaline Phosphatase 700 H Total Protein 6.5 Albumin 2.8 L Influenza Type A (PCR) Influenza Type B (PCR) RSV RNA Qual (PCR) SARS-CoV-2 RNA (RT-PCR) Assessment and Plan (1) Cholecystitis: Status: Acute (2) Gallbladder mass: Status: Acute (3) Acute pancreatitis: Status: Acute (4) Acute alcoholic hepatitis: Status: Acute (5) Alcohol withdrawal: Status: Acute Plan A 52 years old male with PMH of alcohol abuse, COPD, COPD, substance abuse, smoking among others who presents to the hospital complaining of abdominal pain for 2 days. Acute hemorrhagic cholecystitis Seen on CT scan and ultrasound Confirmed by MRCP pending ultrasound results Continue ceftriaxone and Flagyl Continue IV fluids Hold anticoagulation and start heparin SC GI and surgery team following Acute pancreatitis Elevated lipase with epigastric pain Treat with IV fluid NPO for now Alcohol abuse and withdrawal Continue phenobarbital protocol Folic acid and thiamine Acute alcoholic hepatitis Secondary to alcohol abuse with elevated ALT to AST Avoid hepatic toxic medications Monitor LFT History of clot Hold apixaban for possible surgical intervention Changed to heparin DVT prophylaxis DVT PPX Heparin The patient will need Overnight hospital stay for evaluation and treatment of acute pancreatitis and cholecystitis pending possible surgical intervention Time Spent With Patient Time: Total time managing care of this patient today ____ minutes. Quality Stroke Does the patient have a stroke diagnosis?: No VTE Prior VTE?: No VTE Risk Level:: Medical - moderate - high VTE Device Contraindication: Treatment Not Indicated VTE Drug Contraindication: N/A - Med Ordered
[2022-08-16] MEDS: PHENobarbitaL sodium 130 MG/ML VIAL IM (15:22)
[2022-08-16] MEDS: cefTRIAXone sodium 1 GM in 0.9 % Sodium Chloride 50 ML IV (19:38)
[2022-08-17] MEDS: metroNIDAZOLE/NS 500 MG/100 ML PIGGYBACK 100 MG IV ×3 (02:18→18:09)
[2022-08-17 03:26] VITALS: BP 155/62; PULSE 77; RESP 20; TEMP 36.7; O2SAT 93
--- NOTE | 2022-08-17 06:29 | PC.NURSE ---
patient refusing bed alarm and camera in room. pt educated on fall precautions and safety and still refusing.
[2022-08-17 07:05] LABS: Hematocrit 40.8 % (42.0-52.0); Hemoglobin 14.5 g/dl (14.0-18.0); Mean Corpuscular HGB Conc 35.5 g/dl (31.0-36.0); Mean Corpuscular Hemoglobin 32.5 pg (27.0-33.0); Mean Corpuscular Volume 91.5 fL (80.0-98.0); Mean Platelet Volume 10.7 fL (9.4-12.4); Platelet Count 144 X10*3/uL (160-400); Red Blood Count 4.46 X10*6/uL (4.60-5.80); Red Cell Distribution Width 13.1 % (11.0-16.0); White Blood Count 9.5 X10*3/uL (4.8-10.8)
[2022-08-17 07:39] LABS: Anion Gap 15 (12-20); Blood Urea Nitrogen 4 mg/dL (9-16); Calcium 8.3 mg/dL (8.4-10.2); Carbon Dioxide 27 mmol/L (22-29); Chloride 91 mmol/L (96-108); Creatinine Clr Calc Pharmacy 176.9; Estimated Glomerular Filt Rate > 60; Glucose Random 85 mg/dL (60-115); Potassium 3.3 mmol/L (3.3-5.1); Sodium 130 mmol/L (135-145)
[2022-08-17 07:40] LABS: Alanine Aminotransferase 497 U/L (0-40); Alkaline Phosphatase 709 U/L (39-117); Aspartate Amino Transferase 893 U/L (5-37); Bilirubin Direct 2.6 mg/dL (0.0-0.5); Total Protein 6.9 g/dL (6.5-8.0)
[2022-08-17 08:00] VITALS: BP 146/94; PULSE 94; RESP 20; TEMP 36.7; O2SAT 97
--- NOTE | 2022-08-17 08:56 | P.PNGS_ITS ---
Subjective Subjective Date of Service: 08/17/22 Interval history: Patient denies abdominal pain. He is sitting with his father at the table and appears anxious for discharge. He reports being worried about his house with the cold weather. Physical Exam Vital Signs: Vital Signs: Last Vital Signs Temp 98.0 F 08/17/22 03:26 Pulse 77 08/17/22 03:26 Resp 20 08/17/22 03:26 BP 155/62 H 08/17/22 03:26 Pulse Ox 93 08/17/22 03:26 O2 Del Method 08/17/22 03:26 BMI result Body Mass Index 20.3 Const: General: anxious, confusion and ill appearing Nutritional Appearance: thin Orientation/consciousness: confusion Limitations: behavioral limitations Eyes: Sclerae: sclerae normal GI: Inspection: Yes normal to inspection Palpation (GI): Soft to palpation, nontender, no guarding and not rigid Skin: Other: Warm and dry Neuro: General: confusion Objective Data Active Medications Acetaminophen (Acetaminophen 325 Mg Tablet) 650 mg PO Q6H PRN PRN Reason: Pain, Mild (Pain Scale 1-3) Albuterol/Ipratropium (Albuterol/Iprat 2.5/0.5mg 3 Ml Ampul.Neb) 3 ml INHALE Q6H PRN PRN Reason: shortness of breath/wheezing Folic Acid (Folic Acid 1 Mg Tablet) 1 mg PO DAILY [facility] Last Admin: 08/16/22 08:59 Dose: 1 mg Documented By: MONA Heparin Sodium (Porcine) (Heparin Sodium,Porcine 5,000 Unit/Ml Vial) 5,000 unit SUBCUT Q8H [facility] Lactated Ringer's (Lr) 1,000 mls @ 150 mls/hr IVCONT .Q6H40M [facility] Last Infusion: 08/17/22 04:39 Dose: 150 mls/hr Documented By: LEXIE Ceftriaxone Sodium 1 gm/ (Sodium Chloride) 50 mls @ 100 mls/hr IV Q24H [facility] Last Infusion: 08/16/22 20:08 Dose: 0 mls/hr Documented By: LEXIE Metronidazole (Flagyl) 500 mg in 100 mls @ 100 mls/hr IV Q8H [facility] Last Infusion: 08/17/22 04:39 Dose: 0 mls/hr Documented By: LEXIE Morphine Sulfate (Morphine Sulfate 4 Mg/Ml Cartridge) 4 mg IVPUSH Q4H PRN; Protocol PRN Reason: Pain, Severe (Pain Scale 7-10) Ondansetron HCl (Ondansetron Hcl 4 Mg/2 Ml Vial) 4 mg IVPUSH Q8H PRN PRN Reason: Nausea and Vomiting Pharmacy Consult (Consult Rx Perform Med Rec) 1 each MISCELLANE ONCE PRN PRN Reason: Consult order Pharmacy Consult (Consult Rx Etoh Phenob Im/Po) 1 each MISCELLANE ONCE PRN; Protocol PRN Reason: Consult order Phenobarbital (Phenobarbital 30 Mg Tablet) 60 mg PO BID [facility]; Protocol Stop: 08/17/22 21:01 Last Admin: 08/16/22 20:19 Dose: 60 mg Documented By: LEXIE Phenobarbital (Phenobarbital 30 Mg Tablet) 30 mg PO BID [facility]; Protocol Stop: 08/19/22 21:01 Phenobarbital (Phenobarbital 30 Mg Tablet) 30 mg PO DAILY [facility]; Protocol Stop: 08/21/22 09:01 Sodium Chloride (0.9 % Sodium Chloride Flush 3 Ml Syringe) [facility] Last Admin: 08/17/22 02:07 Dose: Not Given Documented By: LEXIE Non-Admin Reason: IV Running Thiamine HCl (Thiamine Hcl 100 Mg Tablet) 100 mg PO DAILY [facility] Last Admin: 08/16/22 08:59 Dose: 100 mg Documented By: MONA Labs 08/17/22 06:19 08/17/22 06:19 Labs: Laboratory Results - last 24 hr 08/17/22 08/17/22 08/17/22 06:19 06:19 06:19 MCV 91.5 MCH 32.5 MCHC 35.5 RDW 13.1 Plt Count 144 L MPV 10.7 Absolute Nucleated RBC 0.000 Nucleated RBC % (auto) 0.0 Anion Gap 15 Estim Creat Clear Calc 176.9 Estimated GFR > 60 Random Glucose 85 Calcium 8.3 L Total Bilirubin 4.0 H Direct Bilirubin 2.6 H AST 893 H ALT 497 H Alkaline Phosphatase 709 H Total Protein 6.9 Albumin 3.0 L Procedures Date of Service Date of Service: 08/17/22 Progress Note: A&P Assessment and plan (1) Acute hemorrhagic cholecystitis: Status: Acute Plan Ultrasound seems indicate a hemorrhagic cholecystitis which may be due to acute cholecystitis verses tumor or meds. Ideally patient should undergo laparoscopic or possible open cholecystectomy once 1st from his oral anticoagulation. Would anticipate surgery over the next several days if cleared from a medical standpoi nt. Patient is indicating that he is not interested in proceeding with surgery and would prefer to go home. Will discuss with primary team. Time Spent With Patient Time: Total time managing care of this patient today ____ minutes. Quality Stroke Does the patient have a stroke diagnosis?: No VTE Prior VTE?: No VTE Risk Level:: Medical - moderate - high VTE Device Contraindication: Treatment Not Indicated VTE Drug Contraindication: N/A - Med Ordered
[2022-08-17] MEDS: Folic Acid 1 MG TABLET PO (10:11)
[2022-08-17] MEDS: Thiamine HCL 100 MG TABLET PO (10:11)
[2022-08-17] MEDS: PHENobarbitaL 30 MG TABLET 60 MG PO ×2 (10:12→20:27)
[2022-08-17] MEDS: Heparin Sodium,Porcine 5,000 UNIT/ML VIAL 5000 UNIT SUBCUT ×2 (10:12→17:25)
[2022-08-17 12:00] VITALS: BP 133/89; PULSE 100; RESP 20; TEMP 37.1; O2SAT 98
[2022-08-17] MEDS: PHENobarbitaL sodium 130 MG/ML VIAL IM (12:45)
[2022-08-17] MEDS: Lactated Ringers 1,000 ML 150 ML IVCONT (12:46)
--- NOTE | 2022-08-17 13:09 | HO.PM.IMPN ---
Subjective Subjective Date of Service: 08/17/22 Interval History: Seen and evaluated Feels more comfortable, less tremors Improving reporting abdominal pain and asking for food Not interested in doing surgery during hospital stay No other overnight events Review of Systems No fever, chills but reports generalized weakness No chest pain, palpitation No shortness of breath or coughing Improved abdominal pain, no reported nausea or vomiting No urinary symptoms No any rash or wounds Physical Exam Vital Signs: Vital Signs: Last Vital Signs Temp 98.7 F 08/17/22 12:00 Pulse 100 08/17/22 12:00 Resp 20 08/17/22 12:00 BP 133/89 08/17/22 12:00 Pulse Ox 98 08/17/22 12:00 O2 Del Method 08/17/22 12:00 BMI result Body Mass Index 20.3 Const: Other: Constitutional : Awake, interactive, underweight, not in distress Neck : Normal inspection, Supple Cardiovascular : RRR, no JVP, no lower extremity edema Respiratory : good bilateral air entry, no crackles, wheezes or rhonchi Gastrointestinal: soft, lax, Normal bowel sounds, less epigastric tenderness , less right upper quadrant tenderness Skin : Warm, Dry Neurological : Alert & oriented x3, No focal deficit Objective Data Active Medications Acetaminophen (Acetaminophen 325 Mg Tablet) 650 mg PO Q6H PRN PRN Reason: Pain, Mild (Pain Scale 1-3) Albuterol/Ipratropium (Albuterol/Iprat 2.5/0.5mg 3 Ml Ampul.Neb) 3 ml INHALE Q6H PRN PRN Reason: shortness of breath/wheezing Folic Acid (Folic Acid 1 Mg Tablet) 1 mg PO DAILY [facility] Last Admin: 08/17/22 10:11 Dose: 1 mg Documented By: SHADIA Heparin Sodium (Porcine) (Heparin Sodium,Porcine 5,000 Unit/Ml Vial) 5,000 unit SUBCUT Q8H [facility] Last Admin: 08/17/22 10:12 Dose: 5,000 unit Documented By: SHADIA Lactated Ringer's (Lr) 1,000 mls @ 150 mls/hr IVCONT .Q6H40M [facility] Last Admin: 08/17/22 12:46 Dose: 150 mls/hr Documented By: SHADIA Ceftriaxone Sodium 1 gm/ (Sodium Chloride) 50 mls @ 100 mls/hr IV Q24H [facility] Last Infusion: 08/16/22 20:08 Dose: 0 mls/hr Documented By: LEXIE Metronidazole (Flagyl) 500 mg in 100 mls @ 100 mls/hr IV Q8H [facility] Last Infusion: 08/17/22 12:54 Dose: 0 mls/hr Documented By: SHADIA Morphine Sulfate (Morphine Sulfate 4 Mg/Ml Cartridge) 4 mg IVPUSH Q4H PRN; Protocol PRN Reason: Pain, Severe (Pain Scale 7-10) Ondansetron HCl (Ondansetron Hcl 4 Mg/2 Ml Vial) 4 mg IVPUSH Q8H PRN PRN Reason: Nausea and Vomiting Pharmacy Consult (Consult Rx Perform Med Rec) 1 each MISCELLANE ONCE PRN PRN Reason: Consult order Pharmacy Consult (Consult Rx Etoh Phenob Im/Po) 1 each MISCELLANE ONCE PRN; Protocol PRN Reason: Consult order Phenobarbital (Phenobarbital 30 Mg Tablet) 60 mg PO BID [facility]; Protocol Stop: 08/17/22 21:01 Last Admin: 08/17/22 10:12 Dose: 60 mg Documented By: SHADIA Phenobarbital (Phenobarbital 30 Mg Tablet) 30 mg PO BID [facility]; Protocol Stop: 08/19/22 21:01 Phenobarbital (Phenobarbital 30 Mg Tablet) 30 mg PO DAILY [facility]; Protocol Stop: 08/21/22 09:01 Sodium Chloride (0.9 % Sodium Chloride Flush 3 Ml Syringe) [facility] Last Admin: 08/17/22 10:15 Dose: Not Given Documented By: SHADIA Non-Admin Reason: IV Running Thiamine HCl (Thiamine Hcl 100 Mg Tablet) 100 mg PO DAILY [facility] Last Admin: 08/17/22 10:11 Dose: 100 mg Documented By: SHADIA Labs 08/17/22 06:19 08/17/22 06:19 Labs: Laboratory Results - last 24 hr 08/17/22 08/17/22 08/17/22 06:19 06:19 06:19 MCV 91.5 MCH 32.5 MCHC 35.5 RDW 13.1 Plt Count 144 L MPV 10.7 Absolute Nucleated RBC 0.000 Nucleated RBC % (auto) 0.0 Anion Gap 15 Estim Creat Clear Calc 176.9 Estimated GFR > 60 Random Glucose 85 Calcium 8.3 L Total Bilirubin 4.0 H Direct Bilirubin 2.6 H AST 893 H ALT 497 H Alkaline Phosphatase 709 H Total Protein 6.9 Albumin 3.0 L Assessment and Plan (1) Acute hemorrhagic cholecystitis: Status: Acute (2) Mirizzi's syndrome: Status: Acute (3) Cholecystitis: Status: Acute (4) Acute pancreatitis: Status: Acute (5) Acute alcoholic hepatitis: Status: Acute Plan A 52 years old male with PMH of alcohol abuse, COPD, COPD, substance abuse, smoking among others who presents to the hospital complaining of abdominal pain for 2 days. Acute hemorrhagic cholecystitis Seen on CT scan and ultrasound Confirmed by MRCP and ultrasound results Continue ceftriaxone and Flagyl Continue IV fluids Hold anticoagulation and start heparin [facility] GI and surgery team following , would prefer cholecystectomy during the hospital stay but the patient seems to be resistant to the idea Acute pancreatitis Elevated lipase with epigastric pain Treat with IV fluid Advanced diet as tolerated Alcohol abuse and withdrawal Continue phenobarbital protocol and give extra doses needed Folic acid and thiamine Acute alcoholic hepatitis Secondary to alcohol abuse with elevated ALT to AST Avoid hepatic toxic medications Monitor LFT History of clot Hold apixaban for possible surgical intervention Changed to heparin DVT prophylaxis DVT PPX Heparin The patient will need Overnight hospital stay for evaluation and treatment of acute pancreatitis and cholecystitis pending possible surgical intervention Time Spent With Patient Time: Total time managing care of this patient today ____ minutes. Quality Stroke Does the patient have a stroke diagnosis?: No VTE Prior VTE?: No VTE Risk Level:: Medical - moderate - high VTE Device Contraindication: Treatment Not Indicated VTE Drug Contraindication: N/A - Med Ordered
[2022-08-17 15:16] VITALS: BP 135/86; PULSE 86; RESP 20; TEMP 37.2; O2SAT 96
[2022-08-17] MEDS: Buprenorphine/Naloxone 8/2 mg FILM 1 FILM SUBLINGUAL ×2 (17:25→20:29)
[2022-08-17] MEDS: cefTRIAXone sodium 1 GM in 0.9 % Sodium Chloride 50 ML IV (17:26)
[2022-08-17] MEDS: 0.9 % Sodium Chloride Flush 3 ML SYRINGE IVFLUSH (17:27)
[2022-08-17 19:12] VITALS: BP 116/78; PULSE 80; RESP 20; TEMP 36.6; O2SAT 93
--- NOTE | 2022-08-17 21:30 | PC.NURSE ---
2130 : Patient refusing Lactated ringers would like to sleep without having to get up every two minutes to use the bathroom , this RN educated patient on the purpose of the fluids and will revisit in the Am to restart .
[2022-08-18] VITALS: BP 148/94; PULSE 78; RESP 20; TEMP 36.4; O2SAT 96
[2022-08-18] MEDS: 0.9 % Sodium Chloride Flush 3 ML SYRINGE IVFLUSH ×4 (01:29→21:47)
[2022-08-18] MEDS: metroNIDAZOLE/NS 500 MG/100 ML PIGGYBACK 100 MG IV ×3 (02:06→18:13)
[2022-08-18] MEDS: Heparin Sodium,Porcine 5,000 UNIT/ML VIAL 5000 UNIT SUBCUT ×3 (02:06→17:33)
[2022-08-18] MEDS: Lactated Ringers 1,000 ML 150 ML IVCONT (02:14)
[2022-08-18 04:00] VITALS: BP 145/87; PULSE 74; RESP 20; TEMP 36.6; O2SAT 97
[2022-08-18 07:41] LABS: Anion Gap 10 (12-20); Blood Urea Nitrogen 4 mg/dL (9-16); Calcium 7.9 mg/dL (8.4-10.2); Carbon Dioxide 27 mmol/L (22-29); Chloride 96 mmol/L (96-108); Creatinine Clr Calc Pharmacy 197.9; Estimated Glomerular Filt Rate > 60; Glucose Random 85 mg/dL (60-115); Sodium 130 mmol/L (135-145)
[2022-08-18 07:42] LABS: Alanine Aminotransferase 255 U/L (0-40); Albumin Level 2.4 g/dL (3.5-5.0); Alkaline Phosphatase 489 U/L (39-117); Aspartate Amino Transferase 257 U/L (5-37); Bilirubin Direct 1.1 mg/dL (0.0-0.5); Bilirubin Total 2.1 mg/dL (0.0-1.0); Total Protein 5.7 g/dL (6.5-8.0)
[2022-08-18 08:00] VITALS: BP 146/91; PULSE 73; RESP 18; TEMP 37.4; O2SAT 98
[2022-08-18] MEDS: Buprenorphine/Naloxone 8/2 mg FILM 1 FILM SUBLINGUAL ×2 (10:24→17:32)
[2022-08-18] MEDS: Thiamine HCL 100 MG TABLET PO (10:24)
[2022-08-18] MEDS: Folic Acid 1 MG TABLET PO (10:25)
[2022-08-18] MEDS: Potassium Chloride Packet 20 MEQ PACKET 40 MEQ PO ×2 (10:27→13:40)
[2022-08-18] MEDS: PHENobarbitaL 30 MG TABLET PO ×2 (10:28→21:37)
[2022-08-18 11:06] VITALS: BP 143/92; PULSE 88; RESP 18; TEMP 37.4; O2SAT 98
--- NOTE | 2022-08-18 11:43 | P.CDIC_ITS ---
CDI Concurrent Query Documentation Clarification: PHYSICIAN'S DOCUMENTATION REQUEST Date of Query: 08/18/22 1147 Patient Name: Yan Hooks Admit Date: 08/15/22 Dear Doctor, A review of the medical record indicates additional documentation may be needed. Please review below and update the documentation accordingly. Clinical Indicators: Is there a diagnosis that correlates with these lab findings below: Risk Factors/Clinical Indicators/Treatments Labs: Sodium 08/17 - 130 Sodium 08/18 - 130 Based on the above, could you clarify in the Progress Notes the appropriate diagnosis, if significant, that supports the above abnormalities and additional evaluation, monitoring, and/or treatment rendered: * Hyponatremia * Other (please specify) * Unable to determine Use of terms such as suspected, likely, concern for, or probable (associated with a specific diagnosis that is being evaluated, monitored, or treated as if it exists) are acceptable and can be coded in the inpatient setting, when documented at the time of discharge. Thank you, Marquita Welch MS, RN, CCRN Extension: [phone] Please use your independent medical judgment in providing your response. THIS QUERY IS PART OF THE PERMANENT MEDICAL RECORD Provider Response: Other Other Diagnosis: hyponatremia
--- NOTE | 2022-08-18 11:50 | P.CDIC_ITS ---
CDI Concurrent Query Documentation Clarification: PHYSICIAN'S DOCUMENTATION REQUEST Date of Query: 08/18/22 1150 Patient Name: Yan Hooks Admit Date: 08/15/22 Dear Doctor, A review of the medical record indicates additional documentation may be needed. Please review below and update the documentation accordingly. Clinical Indicators: Is there a diagnosis that correlates with these lab findings below: Risk Factors/Clinical Indicators/Treatments Labs: Potassium 08/16 - 3.0 Potassium 08/18 - 3.0 Based on the above, could you clarify in the Progress Notes the appropriate diagnosis, if significant, that supports the above abnormalities and additional evaluation, monitoring, and/or treatment rendered: * Hypokalemia * Other (please specify) * Unable to determine Use of terms such as suspected, likely, concern for, or probable (associated with a specific diagnosis that is being evaluated, monitored, or treated as if it exists) are acceptable and can be coded in the inpatient setting, when documented at the time of discharge. Thank you, Marquita Welch MS, RN, CCRN Extension: [phone] Please use your independent medical judgment in providing your response. THIS QUERY IS PART OF THE PERMANENT MEDICAL RECORD Provider Response: Other Other Diagnosis: hypokalemia
--- NOTE | 2022-08-18 12:02 | P.PNGS_ITS ---
Subjective Subjective Date of Service: 08/18/22 Patient reports: no new complaints Interval history: Patient feels much improved today with minimal to no abdominal pain. He is agreeable to proceeding with a laparoscopic or possible open cholecystectomy during this admission. Physical Exam Vital Signs: Vital Signs: Last Vital Signs Temp 99.4 F 08/18/22 11:06 Pulse 88 08/18/22 11:06 Resp 18 08/18/22 11:06 BP 143/92 H 08/18/22 11:06 Pulse Ox 98 08/18/22 11:06 O2 Del Method 08/18/22 11:06 BMI result Body Mass Index 20.3 Const: General: anxious, confusion and ill appearing Nutritional Blanca earance: thin Orientation/consciousness: confusion Limitations: behavioral limitations Eyes: Sclerae: sclerae normal GI: Inspection: Yes normal to inspection Palpation (GI): Soft to palpation, nontender, no guarding and not rigid Skin: Other: Warm and dry Neuro: General: confusion Objective Data Active Medications Acetaminophen (Acetaminophen 325 Mg Tablet) 650 mg PO Q6H PRN PRN Reason: Pain, Mild (Pain Scale 1-3) Albuterol/Ipratropium (Albuterol/Iprat 2.5/0.5mg 3 Ml Ampul.Neb) 3 ml INHALE Q6H PRN PRN Reason: shortness of breath/wheezing Buprenorphine/Naloxone (Buprenorphine/Naloxone 8/2 Mg Film) 1 film SUBLINGUAL BID [facility] Last Admin: 08/18/22 10:24 Dose: 1 film Documented By: LING Folic Acid (Folic Acid 1 Mg Tablet) 1 mg PO DAILY [facility] Last Admin: 08/18/22 10:25 Dose: 1 mg Documented By: LING Heparin Sodium (Porcine) (Heparin Sodium,Porcine 5,000 Unit/Ml Vial) 5,000 unit SUBCUT Q8H [facility] Last Admin: 08/18/22 10:25 Dose: 5,000 unit Documented By: LING Lactated Ringer's (Lr) 1,000 mls @ 150 mls/hr IVCONT .Q6H40M [facility] Last Admin: 08/18/22 11:29 Dose: Not Given Documented By: LING Non-Admin Reason: Patient Refused Ceftriaxone Sodium 1 gm/ (Sodium Chloride) 50 mls @ 100 mls/hr IV Q24H [facility] Last Infusion: 08/17/22 18:11 Dose: 0 mls/hr Documented By: SHADIA Metronidazole (Flagyl) 500 mg in 100 mls @ 100 mls/hr IV Q8H [facility] Last Admin: 08/18/22 10:27 Dose: 100 mls/hr Documented By: LING Morphine Sulfate (Morphine Sulfate 4 Mg/Ml Cartridge) 4 mg IVPUSH Q4H PRN; Protocol PRN Reason: Pain, Severe (Pain Scale 7-10) Ondansetron HCl (Ondansetron Hcl 4 Mg/2 Ml Vial) 4 mg IVPUSH Q8H PRN PRN Reason: Nausea and Vomiting Pharmacy Consult (Consult Rx Perform Med Rec) 1 each MISCELLANE ONCE PRN PRN Reason: Consult order Pharmacy Consult (Consult Rx Etoh Phenob Im/Po) 1 each MISCELLANE ONCE PRN; Protocol PRN Reason: Consult order Phenobarbital (Phenobarbital 30 Mg Tablet) 30 mg PO BID [facility]; Protocol Stop: 08/19/22 21:01 Last Admin: 08/18/22 10:28 Dose: 30 mg Documented By: LING Phenobarbital (Phenobarbital 30 Mg Tablet) 30 mg PO DAILY [facility]; Protocol Stop: 08/21/22 09:01 Sodium Chloride (0.9 % Sodium Chloride Flush 3 Ml Syringe) [address] [facility] Last Admin: 08/18/22 11:30 Dose: 3 ml Documented By: LING Thiamine HCl (Thiamine Hcl 100 Mg Tablet) 100 mg PO DAILY [facility] Last Admin: 08/18/22 10:24 Dose: 100 mg Documented By: LING Labs 08/17/22 06:19 08/18/22 06:40 Labs: Laboratory Results - last 24 hr 08/18/22 08/18/22 06:40 06:40 Anion Gap 10 L Estim Creat Clear Calc 197.9 Estimated GFR > 60 Random Glucose 85 Calcium 7.9 L Total Bilirubin 2.1 H Direct Bilirubin 1.1 H AST 257 H ALT 255 H Alkaline Phosphatase 489 H Total Protein 5.7 L Albumin 2.4 L Procedures Date of Service Date of Service: 08/18/22 Progress Note: A&P Assessment and plan (1) Acute hemorrhagic cholecystitis: Status: Acute Plan Ultrasound seems indicate a hemorrhagic cholecystitis which may be due to acute cholecystitis verses tumor or meds. Patient is now agreeable to proceeding with a laparoscopic or possible open cholecystectomy. He is currently off his anticoagulation and is cleared from a medical standpoint for surgery. I reviewed the procedure, risks, and alternatives in detail with the patient today. He expressed understanding and consents to a laparoscopic or possible open cholecystectomy. He has been added onto the OR schedule for tomorrow. NPO after midnight. Time Spent With Patient Time: Total time managing care of this patient today ____ minutes. Quality Stroke Does the patient have a stroke diagnosis?: No VTE Prior VTE?: No VTE Risk Level:: Medical - moderate - high VTE Device Contraindication: Treatment Not Indicated VTE Drug Contraindication: N/A - Med Ordered
--- NOTE | 2022-08-18 12:54 | P.PNIM_ITS ---
Subjective Subjective Date of Service: 08/18/22 Interval History: Seen and evaluated Feels more comfortable, less tremors and feels much better less abdominal pain and tolerating diet well agree to doing surgery during hospital stay No other overnight events Review of Systems No fever, chills but reports generalized weakness No chest pain, palpitation No shortness of breath or coughing Improved abdominal pain, no reported nausea or vomiting No urinary symptoms No any rash or wounds Physical Exam Vital Signs: Vital Signs: Last Vital Signs Temp 99.4 F 08/18/22 11:06 Pulse 88 08/18/22 11:06 Resp 18 08/18/22 11:06 BP 143/92 H 08/18/22 11:06 Pulse Ox 98 08/18/22 11:06 O2 Del Method 08/18/22 11:06 BMI result Body Mass Index 20.3 Const: Other: Constitutional : Awake, interactive, underweight, not in distress Neck : Normal inspection, Supple Cardiovascular : RRR, no JVP, no lower extremity edema Respiratory : good bilateral air entry, no crackles, wheezes or rhonchi Gastrointestinal: soft, lax, Normal bowel sounds, less epigastric tenderness , less right upper quadrant tenderness Skin : Warm, Dry Neurological : Alert & oriented x3, No focal deficit Objective Data Active Medications Acetaminophen (Acetaminophen 325 Mg Tablet) 650 mg PO Q6H PRN PRN Reason: Pain, Mild (Pain Scale 1-3) Albuterol/Ipratropium (Albuterol/Iprat 2.5/0.5mg 3 Ml Ampul.Neb) 3 ml INHALE Q6H PRN PRN Reason: shortness of breath/wheezing Buprenorphine/Naloxone (Buprenorphine/Naloxone 8/2 Mg Film) 1 film SUBLINGUAL BID [facility] Last Admin: 08/18/22 10:24 Dose: 1 film Documented By: LING Folic Acid (Folic Acid 1 Mg Tablet) 1 mg PO DAILY [facility] Last Admin: 08/18/22 10:25 Dose: 1 mg Documented By: LING Heparin Sodium (Porcine) (Heparin Sodium,Porcine 5,000 Unit/Ml Vial) 5,000 unit SUBCUT Q8H [facility] Last Admin: 08/18/22 10:25 Dose: 5,000 unit Documented By: LING Lactated Ringer's (Lr) 1,000 mls @ 150 mls/hr IVCONT .Q6H40M [facility] Last Admin: 08/18/22 11:29 Dose: Not Given Documented By: LING Non-Admin Reason: Patient Refused Ceftriaxone Sodium 1 gm/ (Sodium Chloride) 50 mls @ 100 mls/hr IV Q24H [facility] Last Infusion: 08/17/22 18:11 Dose: 0 mls/hr Documented By: SHADIA Metronidazole (Flagyl) 500 mg in 100 mls @ 100 mls/hr IV Q8H [facility] Last Admin: 08/18/22 10:27 Dose: 100 mls/hr Documented By: LING Morphine Sulfate (Morphine Sulfate 4 Mg/Ml Cartridge) 4 mg IVPUSH Q4H PRN; Protocol PRN Reason: Pain, Severe (Pain Scale 7-10) Ondansetron HCl (Ondansetron Hcl 4 Mg/2 Ml Vial) 4 mg IVPUSH Q8H PRN PRN Reason: Nausea and Vomiting Pharmacy Consult (Consult Rx Perform Med Rec) 1 each MISCELLANE ONCE PRN PRN Reason: Consult order Pharmacy Consult (Consult Rx Etoh Phenob Im/Po) 1 each MISCELLANE ONCE PRN; Protocol PRN Reason: Consult order Phenobarbital (Phenobarbital 30 Mg Tablet) 30 mg PO BID [facility]; Protocol Stop: 08/19/22 21:01 Last Admin: 08/18/22 10:28 Dose: 30 mg Documented By: LING Phenobarbital (Phenobarbital 30 Mg Tablet) 30 mg PO DAILY [facility]; Protocol Stop: 08/21/22 09:01 Sodium Chloride (0.9 % Sodium Chloride Flush 3 Ml Syringe) 3 ml IVFLUSH QSHIFT [facility] Last Admin: 08/18/22 11:30 Dose: 3 ml Documented By: LING Thiamine HCl (Thiamine Hcl 100 Mg Tablet) 100 mg PO DAILY [facility] Last Admin: 08/18/22 10:24 Dose: 100 mg Documented By: LING Labs 08/17/22 06:19 08/18/22 06:40 Labs: Laboratory Results - last 24 hr 08/18/22 08/18/22 06:40 06:40 Anion Gap 10 L Estim Creat Clear Calc 197.9 Estimated GFR > 60 Random Glucose 85 Calcium 7.9 L Total Bilirubin 2.1 H Direct Bilirubin 1.1 H AST 257 H ALT 255 H Alkaline Phosphatase 489 H Total Protein 5.7 L Albumin 2.4 L Assessment and Plan (1) Acute hemorrhagic cholecystitis: Status: Acute (2) Mirizzi's syndrome: Status: Acute (3) Acute pancreatitis: Status: Acute (4) Acute alcoholic hepatitis: Status: Acute (5) Alcohol withdrawal: Status: Acute Plan A 52 years old male with PMH of alcohol abuse, COPD, COPD, substance abuse, smoking among others who presents to the hospital complaining of abdominal pain for 2 days. Acute hemorrhagic cholecystitis Seen on CT scan and ultrasound Confirmed by MRCP and ultrasound results Continue ceftriaxone and Flagyl Continue IV fluids Hold anticoagulation and start heparin [place] surgery team following , plan for cholecystectomy tomorrow NPO post midnight Acute pancreatitis resolved IV fluid Advanced diet as tolerated Alcohol abuse and withdrawal resolving Continue phenobarbital protocol and give extra doses needed Folic acid and thiamine Acute alcoholic hepatitis Secondary to alcohol abuse with elevated ALT to AST Avoid hepatic toxic medications Monitor LFT Hypokalemia replacement given, follow BMP Hyponatremia 2/2 Alcoholism follow BMP History of clot Hold apixaban for possible surgical intervention Changed to heparin DVT prophylaxis DVT PPX Heparin The patient will need Overnight hospital stay for evaluation and treatment of acute pancreatitis and cholecystitis pending surgical intervention Time Spent With Patient Time: Total time managing care of this patient today ____ minutes. Quality Stroke Does the patient have a stroke diagnosis?: No VTE Prior VTE?: No VTE Risk Level:: Medical - moderate - high VTE Device Contraindication: Treatment Not Indicated VTE Drug Contraindication: N/A - Med Ordered
[2022-08-18 15:26] VITALS: BP 150/98; PULSE 85; RESP 18; TEMP 37; O2SAT 98
--- NOTE | 2022-08-18 15:35 | MHC.RECOVRN ---
Met with pt in 485 after consult placed to Addiction Medicine for alcohol use. Pt sitting on edge of bed, awake, alert, engages in conversation but irritable. When asked about alcohol use, pt states I've cut down. In regards to quantity, pt states I don't know. I hate that question. Pt denies drinking hard liquor, reports beer, not a case. Pt states I'm not signing up for anything, I'm telling you that right now. Pt educated on ACS and provided with recovery resources and willing to discuss at a later time. Denies current questions or concerns.
--- NOTE | 2022-08-18 16:16 | MHC.CM.PN ---
PT HAS NOT BEEN MEDICALLY CLEARED FOR DC ( evaluation and treatment of acute pancreatitis and cholecystitis pending surgical intervention) CM WILL CONTINUE TO FOLLOW
[2022-08-18] MEDS: cefTRIAXone sodium 1 GM in 0.9 % Sodium Chloride 50 ML IV (17:45)
[2022-08-18 19:30] VITALS: BP 147/83; PULSE 83; RESP 18; TEMP 37; O2SAT 98
--- NOTE | 2022-08-18 19:30 | PC.NURSE ---
1930 Per day shift report patient still refusing LR MD is aware.
[2022-08-19] VITALS (10 sets, daily range): BP systolic 106–154; BP diastolic 71–90; PULSE 68–100; RESP 15–18; TEMP 36.1–36.7; O2SAT 92–97
[2022-08-19] MEDS: metroNIDAZOLE/NS 500 MG/100 ML PIGGYBACK 100 MG IV ×3 (01:55→17:49)
[2022-08-19 07:57] LABS: Anion Gap 12 (12-20); Blood Urea Nitrogen 4 mg/dL (9-16); Calcium 7.9 mg/dL (8.4-10.2); Carbon Dioxide 25 mmol/L (22-29); Chloride 99 mmol/L (96-108); Creatinine Clr Calc Pharmacy 184.7; Estimated Glomerular Filt Rate > 60; Glucose Random 87 mg/dL (60-115); Potassium 3.4 mmol/L (3.3-5.1); Sodium 133 mmol/L (135-145)
[2022-08-19 08:01] LABS: INTERNATIONAL NORM RATIO 0.9 (0.9-1.1); Prothrombin Time 10.8 SEC (10.0-13.1)
--- NOTE | 2022-08-19 08:20 | MHC.SHP ---
Pre-Procedural Eval Section A Date of Service: 08/19/22 The patient is an INPATIENT: Yes Changes since office visit: Yes Patient answered all questions; No Cold of Flu in the past 2 weeks, No New Medical Problems and No Changes in Medication Section B Chief Complaint: Abd. Pain Allergies: Allergies Allergy/AdvReac Type Severity Reaction Status Date / Time Sulfa (Sulfonamide AdvReac Intermediate NAUSEA & Verified 08/15/22 11:00 Antibiotics) VOMITING [SULFA (SULFONAMIDE ANTIBIOTICS)] doxycycline AdvReac Mild Vomiting Verified 08/15/22 11:00 Plan Diagnosis/Plan: Unchanged I have reviewed the history and physical and performed a pertinent physical examination on my patient. No changes have occurred unless specified. Time Spent With Patient Time: Total time managing care of this patient today ____ minutes.
[2022-08-19] MEDS: Thiamine HCL 100 MG TABLET PO (08:38)
[2022-08-19] MEDS: Folic Acid 1 MG TABLET PO (08:39)
[2022-08-19] MEDS: PHENobarbitaL 30 MG TABLET PO ×2 (08:39→20:35)
[2022-08-19] MEDS: 0.9 % Sodium Chloride Flush 3 ML SYRINGE IVFLUSH ×3 (08:40→20:35)
--- NOTE | 2022-08-19 10:23 | P.PNIM_ITS ---
Subjective Subjective Date of Service: 08/19/22 Interval History: Seen and evaluated Feels more comfortable, less abdominal pain and tolerating diet well plan for surgery today No other overnight events Review of Systems No fever, chills b No chest pain, palpitation No shortness of breath or coughing Improved abdominal pain, no reported nausea or vomiting No urinary symptoms No any rash or wounds Physical Exam Vital Signs: Vital Signs: Last Vital Signs Temp 97.8 F 08/19/22 08:00 Pulse 68 08/19/22 08:00 Resp 18 08/19/22 08:00 BP 142/82 H 08/19/22 08:00 Pulse Ox 92 08/19/22 00:00 O2 Del Method 08/19/22 00:00 BMI result Body Mass Index 20.3 Const: Other: Constitutional : Awake, interactive, underweight, not in distress Neck : Normal inspection, Supple Cardiovascular : RRR, no JVP, no lower extremity edema Respiratory : good bilateral air entry, no crackles, wheezes or rhonchi Gastrointestinal: soft, lax, Normal bowel sounds, less right upper quadrant t enderness Skin : Warm, Dry Neurological : Alert & oriented x3, No focal deficit Objective Data Active Medications Acetaminophen (Acetaminophen 325 Mg Tablet) 650 mg PO Q6H PRN PRN Reason: Pain, Mild (Pain Scale 1-3) Albuterol/Ipratropium (Albuterol/Iprat 2.5/0.5mg 3 Ml Ampul.Neb) 3 ml INHALE Q6H PRN PRN Reason: shortness of breath/wheezing Buprenorphine/Naloxone (Buprenorphine/Naloxone 8/2 Mg Film) 1 film SUBLINGUAL BID@1100,1500 [facility] Last Admin: 08/18/22 17:32 Dose: 1 film Documented By: LING Folic Acid (Folic Acid 1 Mg Tablet) 1 mg PO DAILY [facility] Last Admin: 08/19/22 08:39 Dose: 1 mg Documented By: DADA Heparin Sodium (Porcine) (Heparin Sodium,Porcine 5,000 Unit/Ml Vial) 5,000 unit SUBCUT Q8H [facility] Last Admin: 08/18/22 17:33 Dose: 5,000 unit Documented By: LING Lactated Ringer's (Lr) 1,000 mls @ 100 mls/hr IVCONT .Q10H [facility] Last Admin: 08/18/22 21:35 Dose: Not Given Documented By: JUAN Non-Admin Reason: Patient Refused Ceftriaxone Sodium 1 gm/ (Sodium Chloride) 50 mls @ 100 mls/hr IV Q24H [facility] Last Infusion: 08/18/22 18:21 Dose: 0 mls/hr Documented By: LING Metronidazole (Flagyl) 500 mg in 100 mls @ 100 mls/hr IV Q8H [facility] Last Infusion: 08/19/22 03:23 Dose: 0 mls/hr Documented By: JUAN Morphine Sulfate (Morphine Sulfate 4 Mg/Ml Cartridge) 4 mg IVPUSH Q4H PRN; Pr otocol PRN Reason: Pain, Severe (Pain Scale 7-10) Ondansetron HCl (Ondansetron Hcl 4 Mg/2 Ml Vial) 4 mg IVPUSH Q8H PRN PRN Reason: Nausea and Vomiting Pharmacy Consult (Consult Rx Perform Med Rec) 1 each MISCELLANE ONCE PRN PRN Reason: Consult order Pharmacy Consult (Consult Rx Etoh Phenob Im/Po) 1 each MISCELLANE ONCE PRN; Protocol PRN Reason: Consult order Phenobarbital (Phenobarbital 30 Mg Tablet) 30 mg PO BID [facility]; Protocol Stop: 08/19/22 21:01 Last Admin: 08/19/22 08:39 Dose: 30 mg Documented By: DADA Phenobarbital (Phenobarbital 30 Mg Tablet) 30 mg PO DAILY [facility]; Protocol Stop: 08/21/22 09:01 Sodium Chloride (0.9 % Sodium Chloride Flush 3 Ml Syringe) 3 ml IVFLUSH QSHIFT [facility] Last Admin: 08/19/22 08:40 Dose: 3 ml Documented By: DADA Thiamine HCl (Thiamine Hcl 100 Mg Tablet) 100 mg PO DAILY [facility] Last Admin: 08/19/22 08:38 Dose: 100 mg Documented By: DADA Labs 08/17/22 06:19 08/19/22 06:46 Labs: Laboratory Results - last 24 hr 08/19/22 08/19/22 06:46 06:46 PT 10.8 INR 0.9 Anion Gap 12 Estim Creat Clear Calc 184.7 Estimated GFR > 60 Random Glucose 87 Calcium 7.9 L Assessment and Plan (1) Acute hemorrhagic cholecystitis: Status: Acute (2) Mirizzi's syndrome: Status: Acute (3) Cholecystitis: Status: Acute (4) Acute pancreatitis: Status: Acute (5) Alcohol withdrawal: Status: Acute Plan A 52 years old male with PMH of alcohol abuse, COPD, COPD, substance abuse, smoking among others who presents to the hospital complaining of abdominal pain for 2 days. Acute hemorrhagic cholecystitis Seen on CT scan and ultrasound Confirmed by MRCP and ultrasound results Continue ceftriaxone and Flagyl Discontinue IV fluids Hold anticoagulation and start heparin [place] surgery team following Plan for surgery today Acute pancreatitis resolved Advanced diet as tolerated Alcohol abuse and withdrawal resolving Continue phenobarbital protocol and give extra doses needed Folic acid and thiamine Acute alcoholic hepatitis Secondary to alcohol abuse with elevated ALT to AST Avoid hepatic toxic medications Monitor LFT Hypokalemia replacement given, follow BMP Hyponatremia 2/2 Alcoholism follow BMP History of clot Hold apixaban for possible surgical intervention Changed to heparin DVT prophylaxis DVT PPX Heparin The patient will need Overnight hospital stay for evaluation and treatment of acute pancreatitis and cholecystitis pending surgical intervention Time Spent With Patient Time: Total time managing care of this patient today ____ minutes. Quality Stroke Does the patient have a stroke diagnosis?: No VTE Prior VTE?: No VTE Risk Level:: Medical - moderate - high VTE Device Contraindication: Treatment Not Indicated VTE Drug Contraindication: N/A - Med Ordered
--- NOTE | 2022-08-19 11:55 | P.CONAN_ITS ---
HPI - Anesthesia Eval Consult details Narrative: 52 year old male for lap betsy. sig history of etoh abuse, 12 beers daily, and on suboxone 16mg, asthmatic with heavy smoking history , non compliant with inhalers PMFSH Active Problems Active Problems: All Active Problems (Updated 08/17/22 @ 08:58 by Mert Higgins MD) Acute hemorrhagic cholecystitis (Acute) Mirizzi's syndrome (Acute) Cholecystitis (Acute) Gallbladder mass (Acute) Acute pancreatitis (Acute) Acute alcoholic hepatitis (Acute) Alcohol withdrawal (Acute) Cholecystitis, acute with cholelithiasis (Acute) Urinary frequency (Acute) Swelling of both lower extremities (Acute) Atherosclerotic cardiovascular disease (Acute) Abnormal EKG (Acute) Lung abscess (Acute) Long-term use of hydroxychloroquine (Acute) Raynaud phenomenon (Acute) Anemia (Acute) Therapeutic drug monitoring (Acute) Chest pain (Acute) Ulcer of left ankle (Acute) Onychomycosis (Acute) PAD (peripheral artery disease) (Acute) Varicose veins of left lower extremity with inflammation (Acute) Pelvic mass in male (Acute) Suprapubic pain (Acute) COPD (chronic obstructive pulmonary disease) (Acute) Varicose veins of both lower extremities (Acute) Deep vein thrombosis of left lower extremity (Acute) Alcohol use (Acute) Smoker (Acute) Anxiety (Acute) History of substance abuse (Acute) Pulmonary emphysema (Acute) Diarrhea (Acute) Bilateral pneumonia (Acute) Abscess of lung (Acute) Left leg pain (Acute) Cigarette smoker (Acute) Deep vein thrombosis of left lower extremity (Acute) Vascular disorder of lower extremity (Acute) Elevated blood pressure reading (Acute) Left leg swelling (Acute) Screening for hyperlipidemia (Acute) Bursitis, olecranon (Acute) Elbow effusion (Acute) Epidermal cyst (Acute) Discoid lupus erythematosus (Acute) Past Medical History Medical History Abdominal hernia Alcohol use Anxiety COPD (chronic obstructive pulmonary disease) Epidermal cyst History of substance abuse Pulmonary emphysema Smoker Varicose veins of both lower extremities Family History Family History Father CVD (cardiovascular disease) Mother Rheumatoid arthritis Sister No problems noted. Maternal Uncle Prostate cancer Maternal Uncle Lung cancer Colon cancer Family history of problems with anesthesia: No Surgical History Surgical History No pertinent past surgical history History of Problems with Anesthesia: No Social History Social History Household Members: Friend(s) Housing: House Housing Other:: with roomate Are you a primary health care recruiter to a significant other at home: No Do you presently have visiting nurse or other home services: No Alcohol intake: current Alcohol intake frequency: 0-2 drinks per day Alcohol type: beer Patient Tobacco Use Status: Current everyday Tobacco user Tobacco use type: Cigarette Cigarette Packs Per Day: 3 Cigarettes Per Day: 60.0 Years Smoked: 31 e-Cigarette/Vaping Use: Currently Using Second Hand Smoke Exposure: No service: No Current occupational status: employed Current occupation: rt hand / golf [employer] Cognitive needs: No Hearing needs: No Vision needs: Yes Meds Allergies Allergy/AdvReac Type Severity Reaction Status Date / Time Sulfa (Sulfonamide AdvReac Intermediate NAUSEA & Verified 08/15/22 11:00 Antibiotics) VOMITING [SULFA (SULFONAMIDE ANTIBIOTICS)] doxycycline AdvReac Mild Vomiting Verified 08/15/22 11:00 Active Medications: Current Medications Acetaminophen (Acetaminophen 325 Mg Tablet) 650 mg PO Q6H PRN PRN Reason: Pain, Mild (Pain Scale 1-3) Albuterol/Ipratropium (Albuterol/Iprat 2.5/0.5mg 3 Ml Ampul.Neb) 3 ml INHALE Q6H PRN PRN Reason: shortness of breath/wheezing Buprenorphine/Naloxone (Buprenorphine/Naloxone 8/2 Mg Film) 1 film SUBLINGUAL BID@1100,1500 [facility] Last Admin: 08/18/22 17:32 Dose: 1 film Folic Acid (Folic Acid 1 Mg Tablet) 1 mg PO DAILY [facility] Last Admin: 08/19/22 08:39 Dose: 1 mg Heparin Sodium (Porcine) (Heparin Sodium,Porcine 5,000 Unit/Ml Vial) 5,000 unit SUBCUT Q8H [facility] Last Admin: 08/18/22 17:33 Dose: 5,000 unit Ceftriaxone Sodium 1 gm/ (Sodium Chloride) 50 mls @ 100 mls/hr IV Q24H [facility] Last Infusion: 08/18/22 18:21 Dose: Infused Metronidazole (Flagyl) 500 mg in 100 mls @ 100 mls/hr IV Q8H [facility] Last Admin: 08/19/22 10:48 Dose: 100 mls/hr Morphine Sulfate (Morphine Sulfate 4 Mg/Ml Cartridge) 4 mg IVPUSH Q4H PRN; Protocol PRN Reason: Pain, Severe (Pain Scale 7-10) Ondansetron HCl (Ondansetron Hcl 4 Mg/2 Ml Vial) 4 mg IVPUSH Q8H PRN PRN Reason: Nausea and Vomiting Pharmacy Consult (Consult Rx Perform Med Rec) 1 each MISCELLANE ONCE PRN PRN Reason: Consult order Pharmacy Consult (Consult Rx Etoh Phenob Im/Po) 1 each MISCELLANE ONCE PRN; Protocol PRN Reason: Consult order Phenobarbital (Phenobarbital 30 Mg Tablet) 30 mg PO BID [facility]; Protocol Stop: 08/19/22 21:01 Last Admin: 08/19/22 08:39 Dose: 30 mg Phenobarbital (Phenobarbital 30 Mg Tablet) 30 mg PO DAILY [facility]; Protocol Stop: 08/21/22 09:01 Sodium Chloride (0.9 % Sodium Chloride Flush 3 Ml Syringe) 3 ml IVFLUSH QSHIFT [facility] Last Admin: 08/19/22 08:40 Dose: 3 ml Thiamine HCl (Thiamine Hcl 100 Mg Tablet) 100 mg PO DAILY [facility] Last Admin: 08/19/22 08:38 Dose: 100 mg Home Medications Medication Instructions Recorded Confirmed Last Taken Type buprenorphine 8 mg-naloxone 2 mg 1 film sublingual BID 08/10/20 08/15/22 Unknown History sublingual film (Suboxone) multivitamin 1 tab PO DAILY 09/05/21 08/15/22 Unknown History Exam Exam Date and Time: August 19, 2022 1155 Height,Weight and Vital Signs: Height 6 ft Weight 68.039 kg Last Vital Signs Temp 97.8 F 08/19/22 08:00 Pulse 68 08/19/22 08:00 Resp 18 08/19/22 08:00 BP 142/82 H 08/19/22 08:00 Pulse Ox 92 08/19/22 00:00 O2 Del Method 08/19/22 00:00 Pertinent Lab Results Pertinent Lab Results: Laboratory Tests 08/15/22 08/15/22 08/15/22 11:29 11:29 11:29 WBC 11.2 H RBC 4.14 L Hgb 13.6 L Hct 37.8 L MCV 91.3 MCH 32.9 MCHC 36.0 RDW 12.7 Plt Count 191 MPV 9.0 L Immature Gran % (Auto) 0.8 H Neut % (Auto) 87.1 H Lymph % (Auto) 3.9 L Whitley % (Auto) 7.8 Eos % (Auto) 0.1 Baso % (Auto) 0.3 Lymph # (Auto) 0.4 L Whitley # (Auto) 0.9 Eos # (Auto) 0.0 Baso # (Auto) 0.0 Abs Immat Gran (auto) 0.09 H Absolute Neuts (auto) 9.8 H Absolute Nucleated RBC 0.000 Nucleated RBC % (auto) 0.0 PT INR D-Dimer High Sensitivty Sodium 130 L Potassium 3.3 D Chloride 89 L Carbon Dioxide 26 Anion Gap 18 BUN < 3 L Creatinine 0.57 Estim Creat Clear Calc 145.8 Estimated GFR > 60 Random Glucose Fasting Glucose 121 H Calcium 8.6 Total Bilirubin 2.4 H Direct Bilirubin 1.7 H AST 1443 H ALT 313 H Alkaline Phosphatase 411 H Troponin I High Sens 4.2 Total Protein 7.2 Albumin 3.3 L Lipase 398 H Ethyl Alcohol 132 Influenza Type A (PCR) Influenza Type B (PCR) RSV RNA Qual (PCR) SARS-CoV-2 RNA (RT-PCR) 08/15/22 08/15/22 08/16/22 13:53 13:56 06:08 WBC 8.7 RBC 4.34 L Hgb 14.0 Hct 38.8 L MCV 89.4 MCH 32.3 MCHC 36.1 H RDW 12.6 Plt Count 156 L MPV 10.0 Immature Gran % (Auto) Neut % (Auto) Lymph % (Auto) Whitley % (Auto) Eos % (Auto) Baso % (Auto) Lymph # (Auto) Whitley # (Auto) Eos # (Auto) Baso # (Auto) Abs Immat Gran (auto) Absolute Neuts (auto) Absolute Nucleated RBC 0.000 Nucleated RBC % (auto) 0.0 PT INR D-Dimer High Sensitivty 633 Sodium Potassium Chloride Carbon Dioxide Anion Gap BUN Creatinine Estim Creat Clear Calc Estimated GFR Random Glucose Fasting Glucose Calcium Total Bilirubin Direct Bilirubin AST ALT Alkaline Phosphatase Troponin I High Sens Total Protein Albumin Lipase Ethyl Alcohol Influenza Type A (PCR) NEGATIVE Influenza Type B (PCR) NEGATIVE RSV RNA Qual (PCR) NEGATIVE SARS-CoV-2 RNA (RT-PCR) NEGATIVE 08/16/22 08/17/22 08/17/22 06:08 06:19 06:19 WBC 9.5 RBC 4.46 L Hgb 14.5 Hct 40.8 L MCV 91.5 MCH 32.5 MCHC 35.5 RDW 13.1 Plt Count 144 L MPV 10.7 Immature Gran % (Auto) Neut % (Auto) Lymph % (Auto) Whitley % (Auto) Eos % (Auto) Baso % (Auto) Lymph # (Auto) Whitley # (Auto) Eos # (Auto) Baso # (Auto) Abs Immat Gran (auto) Absolute Neuts (auto) Absolute Nucleated RBC 0.000 Nucleated RBC % (auto) 0.0 PT INR D-Dimer High Sensitivty Sodium 133 L 130 L Potassium 3.0 L 3.3 Chloride 94 L 91 L Carbon Dioxide 26 27 Anion Gap 16 15 BUN 3 L 4 L Creatinine 0.49 L 0.47 L Estim Creat Clear Calc 169.7 176.9 Estimated GFR > 60 > 60 Random Glucose 85 85 Fasting Glucose Calcium 8.1 L 8.3 L Total Bilirubin 3.5 H Direct Bilirubin 2.6 H AST 1979 H ALT 647 H Alkaline Phosphatase 700 H Troponin I High Sens Total Protein 6.5 Albumin 2.8 L Lipase Ethyl Alcohol Influenza Type A (PCR) Influenza Type B (PCR) RSV RNA Qual (PCR) SARS-CoV-2 RNA (RT-PCR) 08/17/22 08/18/22 08/18/22 06:19 06:40 06:40 WBC RBC Hgb Hct MCV MCH MCHC RDW Plt Count MPV Immature Gran % (Auto) Neut % (Auto) Lymph % (Auto) Whitley % (Auto) Eos % (Auto) Baso % (Auto) Lymph # (Auto) Whitley # (Auto) Eos # (Auto) Baso # (Auto) Abs Immat Gran (auto) Absolute Neuts (auto) Absolute Nucleated RBC Nucleated RBC % (auto) PT INR D-Dimer High Sensitivty Sodium 130 L Potassium 3.0 L Chloride 96 Carbon Dioxide 27 Anion Gap 10 L BUN 4 L Creatinine 0.42 L Estim Creat Clear Calc 197.9 Estimated GFR > 60 Random Glucose 85 Fasting Glucose Calcium 7.9 L Total Bilirubin 4.0 H 2.1 H Direct Bilirubin 2.6 H 1.1 H AST 893 H 257 H ALT 497 H 255 H Alkaline Phosphatase 709 H 489 H Troponin I High Sens Total Protein 6.9 5.7 L Albumin 3.0 L 2.4 L Lipase Ethyl Alcohol Influenza Type A (PCR) Influenza Type B (PCR) RSV RNA Qual (PCR) SARS-CoV-2 RNA (RT-PCR) 08/19/22 08/19/22 06:46 06:46 WBC RBC Hgb Hct MCV MCH MCHC RDW Plt Count MPV Immature Gran % (Auto) Neut % (Auto) Lymph % (Auto) Whitley % (Auto) Eos % (Auto) Baso % (Auto) Lymph # (Auto) Whitley # (Auto) Eos # (Auto) Baso # (Auto) Abs Immat Gran (auto) Absolute Neuts (auto) Absolute Nucleated RBC Nucleated RBC % (auto) PT 10.8 INR 0.9 D-Dimer High Sensitivty Sodium 133 L Potassium 3.4 Chloride 99 Carbon Dioxide 25 Anion Gap 12 BUN 4 L Creatinine 0.45 L Estim Creat Clear Calc 184.7 Estimated GFR > 60 Random Glucose 87 Fasting Glucose Calcium 7.9 L Total Bilirubin Direct Bilirubin AST ALT Alkaline Phosphatase Troponin I High Sens Total Protein Albumin Lipase Ethyl Alcohol Influenza Type A (PCR) Influenza Type B (PCR) RSV RNA Qual (PCR) SARS-CoV-2 RNA (RT-PCR) Airway Mallampati Class: II TM Dist: >3cm Neck ROM: Full (poor oral hygeine) Heart: rrr Lungs: cta Assessment and Plan Assessment Anesthesia Assessment: Anesthesia Plan Discussed and Chart Reviewed Final Anesthetic Review Family History of Problems with Anesthesia: No History of Problems with Anesthesia: No NPO: Yes ASA Class: IV Final Preanesthetic Review: No Changes in Pt Med Stat, Meds/Allgs Chart Reviewed, Consent Obtained/Reviewed and Anes Risks/Benef Reviewed Patient Risk: Intermediate Procedure Risk: Intermediate Anesthetic Plan Anesthetic Plan: GA Disposition: Standard PACU
--- NOTE | 2022-08-19 12:18 | P.EN_ITS ---
Event Note Date of Service: 08/19/22 Event Note: Addiction Consult placed Patient seen by substitute bus driver. See note dated 08/18/22 Time Spent With Patient Time: Total time managing care of this patient today ____ minutes.
[2022-08-19] MEDS: Albuterol Sulfate (0.083%) 2.5 MG/3 ML VIAL.NEB INHALE (12:50)
--- NOTE | 2022-08-19 14:26 | W.PM.OPN ---
Operative Note Operative Note Date of Service: 08/19/22 Narrative: Preoperative diagnosis: Hemorrhagic cholecystitis Postoperative diagnosis: Same Procedure: Laparoscopic cholecystectomy Surgeon: Mert Higgins MD Bilingual Branch Manager: GARLAND Holt Anesthesia: General endotracheal Indications for procedure: 52-year-old male patient with history of alcohol and tobacco abuse presenting with complaints of right upper quadrant abdominal pain found on CT and ultrasound to have what appears to be blood within the gallbladder and possible sludge or clot . He presents today for laparoscopic or possible open cholecystectomy. Operative findings: Distended gallbladder containing blood and clot suggestive of hemorrhagic cholecystitis. Liver appeared soft without evidence of cirrhosis; fatty liver. Right lobe: Left lobe: Gallbladder: Specimen: gallbladder Estimated blood loss: 5 mL Complications: none Procedure details: Patient was brought to the OR and placed in a supine position. After administering general anesthesia the patient's abdomen was prepped with ChloraPrep and draped in a sterile fashion. Local anesthesia consisting of 0.5% Sensorcaine without epinephrine was infiltrated in a periumbilical region. A 5 mm incision was made above the umbilicus in a transverse fashion. The Veress needle was then inserted while elevating abdominal cavity with towel clips. After positive drop test the abdomen was insufflated to a pressure of 15 mm of mercury. The Veress needle was then removed and a 5 mm trocar inserted. The camera was inserted in the abdomen explored. A 12 mm trocar was then placed in the epigastrium. Two 5 mm trocars placed in the right upper quadrant by the personal banking assistant. The patient was placed in reverse Trendelenburg positioning and rotated to the left. The gallbladder was grasped with the fundus and retracted cephalad by the personal banking assistant. The infundibulum was then grasped and retracted away from the liver bed, also by the personal banking assistant. The Dolphin dissected was then used by the surgeon to dissect the peritoneum off the infundibulum to reveal the junction with the cystic duct. Cystic artery was noted slightly medial and posterior to the cystic duct. After obtaining a critical view the cystic duct was doubly clipped and divided. The cystic artery was then doubly clipped and divided. The gallbladder was then dissected off the liver bed using electrocautery with an L hook. Hemostasis was assured all times using the electrocautery. When the gallbladder is completely dissected off the liver bed was placed in an Endo-Catch bag and brought out through the epigastric incision. The gallbladder was sent to pathology for further examination. The abdomen was then re-examined. The liver bed was irrigated and suctioned dry. No bleeding or bile leak could be identified. 2 pieces of Surgicel were applied to the liver edge due to the patient's need for anticoagulation postop. CO2 was then evacuated and all trocars removed. Fascia was closed at the epigastric incision using a [id number] 0 Polysorb suture. Skin was closed in all incisions using a subcuticular 4 0 Polysorb suture by both the surgeon and personal banking assistant. Sterile dressings consisting of Steri-Strips, 2 x 2 gauze, and Tegaderm were then applied. The patient tolerated the procedure well. Sponge instrument and needle counts reported as correct. The patient was transferred to PACU in stable condition.
[2022-08-19] MEDS: Buprenorphine/Naloxone 8/2 mg FILM 1 FILM SUBLINGUAL (16:43)
[2022-08-19] MEDS: cefTRIAXone sodium 1 GM in 0.9 % Sodium Chloride 50 ML IV (16:44)
[2022-08-19] MEDS: Heparin Sodium,Porcine 5,000 UNIT/ML VIAL 5000 UNIT SUBCUT (16:44)
[2022-08-19] MEDS: Acetaminophen 325 MG TABLET 650 MG PO (20:34)
[2022-08-20] MEDS: metroNIDAZOLE/NS 500 MG/100 ML PIGGYBACK 100 MG IV ×2 (02:00→09:21)
[2022-08-20] MEDS: Heparin Sodium,Porcine 5,000 UNIT/ML VIAL 5000 UNIT SUBCUT ×2 (02:01→09:20)
[2022-08-20] MEDS: Acetaminophen 325 MG TABLET 650 MG PO (03:06)
--- NOTE | 2022-08-20 07:52 | P.PNGS_ITS ---
Subjective Subjective Date of Service: 08/20/22 Interval history: Standing at nursing desk asking when he is going to be discharged. He is sore at incision sites but comfortable with tylenol only. Tolerating solid diet. OOB and ambulating. Physical Exam Vital Signs: Vital Signs: Last Vital Signs Temp 97.7 F 08/19/22 19:56 Pulse 100 08/19/22 19:56 Resp 15 08/19/22 19:56 BP 106/71 08/19/22 19:56 Pulse Ox 96 08/19/22 19:56 O2 Del Method 08/19/22 19:56 O2 Flow Rate 2 08/19/22 14:59 BMI result Body Mass Index 20.3 Const: General: comfortable, no acute distress and alert Orientation/consciousness: patient oriented x3 Resp: Effort & Inspection: normal respiratory effort GI: Other: right port site dressing saturated, no active bleeding noted, dressing changed and pressure dressing applied Inspection: No distended and Yes incision (dressings intact) Palpation (GI): Soft to palpation, Tenderness to palpation present (GI) (mild, incisional), no guarding and not rigid Percussion: Yes normal to percussion Skin: General skin exam: no rashes or lesions noted Neuro: General: patient oriented x3 Objective Data Active Medications Acetaminophen (Acetaminophen 325 Mg Tablet) 650 mg PO Q6H PRN PRN Reason: Pain, Mild (Pain Scale 1-3) Last Admin: 08/20/22 03:06 Dose: 650 mg Documented By: MIREYA Albuterol Sulfate (Albuterol Sulfate (0.083%) 2.5 Mg/3 Ml Vial.Neb) 2.5 mg INHALE Q2H PRN PRN Reason: one time order neb treatment i Albuterol/Ipratropium (Albuterol/Iprat 2.5/0.5mg 3 Ml Ampul.Neb) 3 ml INHALE Q6H PRN PRN Reason: shortness of breath/wheezing Buprenorphine/Naloxone (Buprenorphine/Naloxone 8/2 Mg Film) 1 film SUBLINGUAL BID@1100,1500 [facility] Last Admin: 08/19/22 16:43 Dose: 1 film Documented By: DADA Folic Acid (Folic Acid 1 Mg Tablet) 1 mg PO DAILY [facility] Last Admin: 08/19/22 08:39 Dose: 1 mg Documented By: DADA Heparin Sodium (Porcine) (Heparin Sodium,Porcine 5,000 Unit/Ml Vial) 5,000 unit SUBCUT Q8H [facility] Last Admin: 08/20/22 02:01 Dose: 5,000 unit Documented By: MIREYA Ceftriaxone Sodium 1 gm/ (Sodium Chloride) 50 mls @ 100 mls/hr IV Q24H [facility] Last Infusion: 08/19/22 19:37 Dose: 0 mls/hr Documented By: MIREYA Metronidazole (Flagyl) 500 mg in 100 mls @ 100 mls/hr IV Q8H [facility] Last Infusion: 08/20/22 03:07 Dose: 0 mls/hr Documented By: MIREYA Morphine Sulfate (Morphine Sulfate 4 Mg/Ml Cartridge) 4 mg IVPUSH Q4H PRN; Protocol PRN Reason: Pain, Severe (Pain Scale 7-10) Ondansetron HCl (Ondansetron Hcl 4 Mg/2 Ml Vial) 4 mg IVPUSH Q8H PRN PRN Reason: Nausea and Vomiting Pharmacy Consult (Consult Rx Perform Med Rec) 1 each MISCELLANE ONCE PRN PRN Reason: Consult order Pharmacy Consult (Consult Rx Etoh Phenob Im/Po) 1 each MISCELLANE ONCE PRN; Protocol PRN Reason: Consult order Phenobarbital (Phenobarbital 30 Mg Tablet) 30 mg PO DAILY [facility]; Protocol Stop: 08/21/22 09:01 Sodium Chloride (0.9 % Sodium Chloride Flush 3 Ml Syringe) 3 ml IVFLUSH QSHIFT [facility] Last Admin: 08/19/22 20:35 Dose: 3 ml Documented By: MIREYA Thiamine HCl (Thiamine Hcl 100 Mg Tablet) 100 mg PO DAILY [facility] Last Admin: 08/19/22 08:38 Dose: 100 mg Documented By: DADA Labs 08/17/22 06:19 08/19/22 06:46 Labs: Laboratory Results - last 24 hr 08/19/22 08/19/22 06:46 06:46 PT 10.8 INR 0.9 Anion Gap 12 Estim Creat Clear Calc 184.7 Estimated GFR > 60 Random Glucose 87 Calcium 7.9 L Procedures Date of Service Date of Service: 08/20/22 Progress Note: A&P Assessment and plan (1) Mirizzi's syndrome: Status: Acute (2) Acute hemorrhagic cholecystitis: Status: Acute (3) S/P laparoscopic cholecystectomy: Status: Acute Plan 52 year old male admitted with acute hemorraghic cholecystitis, mirizzi syndrome now POD #1 s/p lap betsy. He is doing well post op with adequate pain control on tylenol and tolerating solid diet. Abd is benign with appropriate post op tenderness and dressings intact. He is stable for discharge from surgical standpoint. Educated no heavy lifting, f/u in office in 1 week. Patient comfortable with plan and wants to leave now. Dispo as per medicine service. Time Spent With Patient Time: Total time managing care of this patient today ____ minutes. Quality Stroke Does the patient have a stroke diagnosis?: No VTE Prior VTE?: No VTE Risk Level:: Medical - moderate - high VTE Device Contraindication: Treatment Not Indicated VTE Drug Contraindication: N/A - Med Ordered
[2022-08-20 09:00] VITALS: BP 147/75; PULSE 67; RESP 20; TEMP 36.8; O2SAT 98
[2022-08-20] MEDS: Thiamine HCL 100 MG TABLET PO (09:20)
[2022-08-20] MEDS: PHENobarbitaL 30 MG TABLET PO (09:20)
[2022-08-20] MEDS: Folic Acid 1 MG TABLET PO (09:20)
[2022-08-20] MEDS: 0.9 % Sodium Chloride Flush 3 ML SYRINGE IVFLUSH (09:24)
--- NOTE | 2022-08-20 10:20 | PM.DS ---
DS: Providers Provider Date of Service: 08/20/22 Date of admission: 08/15/22 17:26 Primary care physician: Lizandro Teran MD Consults: 08/16/22 07:31 Consult to General Surgery Routine Consulting Provider: Mert Higgins Reason for consultation: gallbladder abnormality, abd pain. Has provider been notified: Yes 08/17/22 13:09 Addiction Medicine Routine Consulting Provider: Addiction Covering Reason for consultation: Alcoholism with liver injury, interested in quitting but needs help DS: Diagnosis Discharge Diagnosis (1) Mirizzi's syndrome: Status: Acute (2) Acute hemorrhagic cholecystitis: Status: Acute (3) S/P laparoscopic cholecystectomy: Status: Acute DS: Summary Hospital Course Hospital Course: from initial hpi: Chief Complaint: Abdominal pain A 52 years old male with PMH of alcohol abuse, COPD, COPD, substance abuse, smoking among others who presents to the hospital complaining of abdominal pain for 2 days.? The patient reports that he has been drinking heavily for the last few days approximately 20-40 can of beer daily.? Reported start to have the pain yesterday morning but he kept drinking the last 1 was earlier this morning.? Pain is epigastric going to his back associated with nausea but no vomiting.? Denies any fever, chills, chest pain, palpitation, change in bowel habit or urinary symptoms. [place] the emergency [place] [address] with transaminitis and elevated bilirubin.? CT scan of the abdomen was consistent with dilated gallbladder and possible cholecystitis with unremarkable pancreas but elevated lipase level. Evaluated by Gastroenterology and surgery team who recommended admission to the hospital and close monitoring for alcohol withdrawal with possible need for surgical intervention for cholecystectomy. hospital course: Patient was admitted for acute hemorrhagic cholecystitis. He was treated with ceftriaxone Flagyl. Anticoagulation was held. He underwent cholecystectomy on 08/19/2022. Pathology should be followed up. Patient will follow up with surgery as outpatient. For alcohol dependence complicated by withdrawal, acute alcoholic hepatitis, acute pancreatitis he was treated with phenobarbital and vitamins. LFTs improved and patient is tolerating solid diet at discharge. Patient noted to be hypokalemic and given replacement. Patient had hyponatremia due to alcohol, for history of DVT he will be restarted on apixaban at discharge. Time Spent with Patient Time attestation: Total time managing care of this patient today ____ minutes. Discharge coordination time: Greater than 30 minutes Quality: Safe Use of Opioids Does Pt have an Active Cancer Diagnosis on the Problem List?: No Quality: Stroke Does the patient have a stroke diagnosis?: No Physical Exam Vital Signs: Vital Signs: Last Vital Signs Temp 98.2 F 08/20/22 09:00 Pulse 67 08/20/22 09:00 Resp 20 08/20/22 09:00 BP 147/75 H 08/20/22 09:00 Pulse Ox 98 08/20/22 09:00 O2 Del Method 08/20/22 09:00 O2 Flow Rate 2 08/19/22 14:59 BMI result Body Mass Index 20.3 General: AO X 3, no acute distress Resp: CTA bilateral, no accessory muscles used CVS: S1,S2,RRR GI: soft, non tender, non distended Neuro: motor grossly intact, alert Psych: appropriate affect, appropriate insight DS: Data Data Completed and Pending Pending studies at discharge: Pending at discharge 08/19/22 14:04 Surgical [PTH] Routine Discharge Plan Discharge Anticipated Discharge Date/Time: 08/20/22 09:57 Patient Disposition: Home, Self-Care Discharge Diagnosis: acute hemorrhagic cholecystitis Referrals: Lizandro Teran MD [Primary Care Provider] - 1 Week Mert Higgins MD [Physician] - 1 Week Discharge Medications: New oxycodone 5 mg tablet 5 mg PO Q6H PRN (Reason: moderate pain (scale score 5-6)) Qty: 20 0RF Rx Instructions: Partial Fill upon patient request. Continued Eliquis 5 mg tablet 5 mg PO BID Qty: 180 0RF multivitamin Tablet 1 tab PO DAILY buprenorphine-naloxone [Suboxone] 8-2 mg film 1 film sublingual BID ipratropium-albuterol 0.5 mg-3 mg(2.5 mg base)/3 mL solution for nebulization 3 ml inhalation Q6-8H PRN (Reason: wheezing) 30 Days Qty: 180 6RF hydroxychloroquine [Plaquenil] 200 mg tablet 200 mg PO BID Qty: 180 1RF Discontinued prednisone 10 mg tablet 10 mg PO .COMPLEX Qty: 46 1RF Rx Instructions: 10 mg orally; take 3 tabs by mouth with breakfast once daily for 1 week then 2 tabs daily for 1 week then 1 tab daily for 1 week then 0.5 tabs daily for 1 week then stop Discharge Orders: Discharge Order (Routine); Ordered 08/20/22 Ordered By: Adriel Azevedo Diet: Low fat, low cholesterol Activity on Discharge: No heavy lifting Stand Alone Forms: Patient Portal Discharge page, Work/School Release Activity Restrictions/Additional Instructions: If the incision area is tender, you may apply an ice pack for short intervals (No more than 20 minutes on, followed by at least 20 minutes off). Do not apply heat. Do not use creams, lotions, or topical antibiotics unless instructed to do so by your surgeon. These can cause infection or allergic reaction. Ok to shower. Remove clear dressings 3 days following your procedure. You have steri strips (small white cloth strips) covering your incision- these will fall off ~1 week. No heavy lifting (>10lbs) or strenuous activity! Follow up in office with Dr. Higgins in 1 week. ([phone]) Call Your Doctor If: -Your temperature exceeds 101.5? F -You experience excessive pain or swelling -You have an unexpected reaction to medication -You have excessive bleeding -You experience continued vomiting/nausea -Your incision begins to separate -Your incision shows signs of infection such as increased redness, swelling, excessive pain, drainage (light blood or clear fluid is normal) or heat Care Plan Goals: recovery Health Concerns: cholecystitis Plan of Treatment: follow up with surgery, avoid etoh Assessment: see above
--- NOTE | 2022-08-20 10:27 | MHC.CM.PN ---
Patient is discharged to home self care today. He has arranged for transportation home.
[2022-08-20] MEDS: Buprenorphine/Naloxone 8/2 mg FILM 1 FILM SUBLINGUAL (10:28)
--- NOTE | 2022-08-20 13:02 | HO.POSTANES ---
Post Anesthesia Evaluation Post Anesthesia Evaluation Vital Signs: Vital Signs Temp Pulse Resp BP Pulse Ox O2 Del Method 08/20/22 09:00 98.2 F 67 20 147/75 H 98 Room Air Anesthesia: General Endotracheal-GETA Mental Status: Awake Pain Control: Satisfactory Nausea/Vomiting: None Hydration: Adequate Anesthesia-Related Issues: No Anes. Related Issues
== END 2022-08-20 12:29 | disposition home or self-care (01) | DRG 263 ==
LOC: HO.ED 16:03 → HO.EDOVER 18:01 → HO.IMC 08-16 09:53
PROVIDERS: Student in an Organized Health Care Education/Training Program; Surgery; Admitting Provider Student in an Organized Health Care Education/Training Program; Emergency Provider Emergency Medicine Emergency Medical Services; PCP Internal Medicine; Visit Provider Internal Medicine
PROC: 0FT44ZZ Resection of Gallbladder, Percutaneous Endoscopic Approach (ICD-10-PCS; CPT 47562; principal; 2022-08-19 11:40)
DX: K81.0 Acute cholecystitis (principal); K85.20 Alcohol induced acute pancreatitis without necrosis or infection; K83.1 Obstruction of bile duct; K70.10 Alcoholic hepatitis without ascites; E87.1 Hypo-osmolality and hyponatremia; F41.9 Anxiety disorder, unspecified; F10.139 Alcohol abuse with withdrawal, unspecified; E87.6 Hypokalemia; F11.20 Opioid dependence, uncomplicated; F17.210 Nicotine dependence, cigarettes, uncomplicated; J43.9 Emphysema, unspecified; Y90.6 Blood alcohol level of 120-199 mg/100 ml; R63.4 Abnormal weight loss; Z68.20 Body mass index [BMI] 20.0-20.9, adult; Z20.822 Contact with and (suspected) exposure to COVID-19; Z86.718 Personal history of other venous thrombosis and embolism; Z71.6 Tobacco abuse counseling; Z88.0 Allergy status to penicillin; Z88.1 Allergy status to other antibiotic agents; Z79.01 Long term (current) use of anticoagulants; Z79.899 Other long term (current) drug therapy
CPT/HCPCS: 0241U; 36415; 74177; 74181; 76705; 80048; 80053; 80076; 82077; 83690; 84484; 85025; 85027; 85379; 85610; 88304; 93005; 93306; 93356; 99285; J0131; J0696; J1100; J1643; J1650; J1885; J2060; J2250; J2270; J2405; J2543; J2560; J3010; Q9957; Q9967

== ENCOUNTER → 2022-08-22 12:53 | Outpatient (BNVA) | payer OTHER, SELFPAY | PROVIDERS: PCP Internal Medicine; Referring Provider Internal Medicine; Visit Provider Surgery | DX: Z48.01 Encounter for change or removal of surgical wound dressing (principal); Z90.49 Acquired absence of other specified parts of digestive tract | CPT/HCPCS: 99211 ==

== ENCOUNTER → 2022-08-28 09:16 | Outpatient (BNVA) | payer OTHER, SELFPAY | PROVIDERS: PCP Internal Medicine; Visit Provider Surgery | DX: Z90.49 Acquired absence of other specified parts of digestive tract (principal); K83.1 Obstruction of bile duct | CPT/HCPCS: 99212 ==

== ENCOUNTER → 2022-09-16 14:45 | Outpatient (BNVA) | payer OTHER, SELFPAY | PROVIDERS: PCP Internal Medicine; Visit Provider Internal Medicine Pulmonary Disease | DX: J85.2 Abscess of lung without pneumonia (principal); J44.9 Chronic obstructive pulmonary disease, unspecified; U07.0 Vaping-related disorder; F17.210 Nicotine dependence, cigarettes, uncomplicated | CPT/HCPCS: 99212 ==

== ENCOUNTER 2022-10-02 13:48 | Outpatient (REF) | payer OTHER, SELFPAY ==
[2022-10-02 14:18] LABS: Basophils Absolute Auto 0.1 X10*3/uL (0.0-0.2); Neutrophils Percent Auto 78.5 % (45-73); WBC ABN SCTR 1
[2022-10-02 14:25] LABS: WBC ABN SCTR FOR CBC 1
[2022-10-02 14:34] LABS: Estimated Average Glucose 88 mg/dL; Hemoglobin A1c % 4.7 %
[2022-10-02 14:47] LABS: Basophils Percent Auto 1.1 % (0-2); Eosinophils Absolute Auto 0.2 X10*3/uL (0.0-0.4); Hematocrit 35.9 % (42.0-52.0); Hemoglobin 12.9 g/dl (14.0-18.0); Imm Gran Abs Auto 0.08 X10*3/uL (0.00-0.03); Imm Gran Pct Auto 0.7 % (0.0-0.4); Lymphocytes Absolute Auto 1.1 X10*3/uL (1.2-4.9); Lymphocytes Percent Auto 9.6 % (20-40); MANUAL DIFF FLAG NO; Mean Corpuscular HGB Conc 35.9 g/dl (31.0-36.0); Mean Corpuscular Hemoglobin 33.2 pg (27.0-33.0); Mean Corpuscular Volume 92.3 fL (80.0-98.0); Mean Platelet Volume 9.7 fL (9.4-12.4); Monocytes Absolute Auto 0.9 X10*3/uL (0.1-1.2); Monocytes Percent Auto 8.1 % (2-11); Neutrophils Absolute Auto 8.9 x10*3/uL (2.0-8.3); Platelet Count 195 X10*3/uL (160-400); Red Blood Count 3.89 X10*6/uL (4.60-5.80); Red Cell Distribution Width 11.9 % (11.0-16.0); White Blood Count 11.3 X10*3/uL (4.8-10.8)
[2022-10-02 14:48] LABS: Alanine Aminotransferase 44 U/L (0-40); Albumin Level 3.3 g/dL (3.5-5.0); Alkaline Phosphatase 325 U/L (39-117); Anion Gap 16 (12-20); Aspartate Amino Transferase 81 U/L (5-37); Bilirubin Total 0.5 mg/dL (0.0-1.0); Blood Urea Nitrogen < 3 mg/dL (9-16); C Reactive Protein 0.18 mg/dL (< or = 0.50); Calcium 8.1 mg/dL (8.4-10.2); Carbon Dioxide 22 mmol/L (22-29); Chloride 92 mmol/L (96-108); Estimated Glomerular Filt Rate > 60; Glucose Random 79 mg/dL (60-115); Potassium 4.1 mmol/L (3.3-5.1); Sodium 126 mmol/L (135-145); Total Protein 7.3 g/dL (6.5-8.0)
[2022-10-02 14:50] LABS: D Dimer High Sensitivity 282 NG/ML
[2022-10-02 14:57] LABS: Erythrocyte Sedimentation Rate 51 MM/HR (0-15)
[2022-10-02 15:04] LABS: Prostate Specific Antigen 0.33 ng/mL (<0.05-4.0); TSH reflex Free T4 1.82 uIU/mL (0.32-4.0); Vitamin D 25-OH Total 11.8 ng/mL (>30)
== END 2022-10-02 13:49 | disposition home or self-care (01) ==
LOC: HO.LAB 13:48
PROVIDERS: Internal Medicine Medical Oncology; PCP Internal Medicine; Visit Provider Internal Medicine
DX: M79.89 Other specified soft tissue disorders (principal); I82.402 Acute embolism and thrombosis of unspecified deep veins of left lower extremity; L93.0 Discoid lupus erythematosus; E11.9 Type 2 diabetes mellitus without complications; N40.1 Benign prostatic hyperplasia with lower urinary tract symptoms; R35.0 Frequency of micturition; E55.9 Vitamin D deficiency, unspecified
CPT/HCPCS: 36415; 80053; 82306; 83036; 84153; 84443; 85025; 85379; 85652; 86140

== ENCOUNTER 2022-10-23 15:35 | Outpatient (REF) | payer OTHER, SELFPAY ==
--- NOTE | ~2022-10-23 | US_ITS ---
EXAMINATION: US VENOUS ULTRASOUND WITH DOPPLER LOWER EXTREMITY, BILATERAL CLINICAL INFORMATION: Follow-up of left lower extremity DVT, question need to continue Eliquis COMPARISON: Lower extremity DVT 11/25/2021 TECHNIQUE: Ultrasound of the deep veins is performed from the hip to the calf with compression sonography and color and pulse Doppler assessment. Spectral analysis with color-flow imaging is performed. FINDINGS: RIGHT: There is normal venous compression and respiratory variation and augmented flow. The visualized common femoral vein, superficial femoral vein, profunda femoral vein, popliteal vein, and the trifurcation region shows no evidence of deep venous thrombosis. There is no significant popliteal fossa cyst. LEFT: Predominantly nonocclusive noted in the left left common femoral vein extending to the femoral vein into the popliteal vein which appears somewhat eccentric and echogenic suggestive of chronicity, similar to prior. Thrombus appears occlusive in the mid femoral vein. Left posterior tibial vein appears patent. The left peroneal vein was not well seen. There is no significant popliteal fossa cyst. US/US venous duplex LE BI IMPRESSION: Predominantly nonocclusive noted in the left left common femoral vein extending to the femoral vein into the popliteal vein which appears somewhat eccentric and echogenic suggestive of chronicity, similar to prior. Thrombus appears occlusive in the mid femoral vein. Left posterior tibial vein appears patent. The left peroneal vein was not well seen. No evidence of right lower extremity DVT.
== END 2022-10-23 15:36 | disposition home or self-care (01) ==
LOC: HO.HMGCX 15:35
PROVIDERS: PCP Internal Medicine; Visit Provider Internal Medicine
DX: I83.93 Asymptomatic varicose veins of bilateral lower extremities (principal); I82.402 Acute embolism and thrombosis of unspecified deep veins of left lower extremity
CPT/HCPCS: 93970

== ENCOUNTER 2022-10-24 15:52 | Emergency (ER) | payer OTHER, SELFPAY ==
--- NOTE | 2022-10-24 15:56 | ED.GENADULT ---
HPI - General Adult General Chief complaint: General Medical Stated complaint: abnormal imaging, blood clots Time Seen by Provider: 10/24/22 16:20 Source: patient Mode of arrival: ambulatory Limitations: no limitations History of Present Illness HPI narrative: 52-year-old male with history of chronic left lower extremity DVT since at least 1999 14, history acute hemorrhagic cholecystitis status post laparoscopic cholecystectomy, alcohol abuse, history of acute alcoholic hepatitis, PVD, anemia, smoker, anxiety, history of substance abuse who presents to the ER for evaluation of an abnormal lower extremity ultrasound that was done yesterday. The test was ordered by Dr. Teran to see if he still needed Eliquis for his chronic left lower extremity DVTs. Patient reports about 2 weeks ago his Eliquis dose was decreased from 5 mg b.i.d. to 2.5 mg b.i.d. because he had some bleeding from wounds on his right arm. They are having a hard time healing. He has been on 2.5 mg b.i.d. since. He states the wounds are now healed and he is no longer bleeding. He has intermittent pains in the left lower extremity which are chronic along with some numbness. He denies any shortness of breath or chest pain. MD complaint: Positive lower extremity DVT Onset (ago): year(s) Location: left and lower extremity Radiation: non-radiation Severity: moderate Pain Consistency: intermittent Relieving factors: none Exacerbating factors: none Associated symptoms: denies other symptoms Treatments prior to arrival: none Related Data Home Medications Medication Instructions Recorded Confirmed buprenorphine 8 mg-naloxone 2 mg 1 film sublingual BID 08/10/20 10/08/22 sublingual film (Suboxone) multivitamin 1 tab PO DAILY 09/05/21 10/08/22 Previous Rx's Medication Instructions Recorded ipratropium 0.5 mg-albuterol 3 mg 3 ml inhalation Q6-8H PRN wheezing 05/30/22 (2.5 mg base)/3 mL nebulization 30 days #180 mL soln amoxicillin 875 mg-potassium 1 tab PO BID 30 days #60 tabs 09/16/22 clavulanate 125 mg tablet prednisone 20 mg tablet 20 mg PO DAILY 30 days #30 tabs 09/16/22 tamsulosin 0.4 mg capsule 0.4 mg PO BEDTIME 90 days #90 caps 09/16/22 apixaban 2.5 mg tablet 2.5 mg PO BID 30 days #60 tabs 10/08/22 hydroxychloroquine 200 mg tablet 200 mg PO BID #180 tabs 10/21/22 Allergies Allergy/AdvReac Type Severity Reaction Status Date / Time Sulfa (Sulfonamide AdvReac Intermediate NAUSEA & Verified 10/08/22 14:06 Antibiotics) VOMITING [SULFA (SULFONAMIDE ANTIBIOTICS)] doxycycline AdvReac Mild Vomiting Verified 10/08/22 14:06 Review of Systems Review of Systems: Yes all other systems are reviewed and are negative [facility] Past Medical History Medical History Abdominal hernia Alcohol use Anxiety Bilateral leg weakness COPD (chronic obstructive pulmonary disease) Epidermal cyst History of substance abuse Pulmonary emphysema Smoker Varicose veins of both lower extremities Surgical History History of laparoscopic cholecystectomy (~08/19/22) Family History Family History Father CVD (cardiovascular disease) Mother Rheumatoid arthritis Sister No problems noted. Maternal Uncle Prostate cancer Maternal Uncle Lung cancer Colon cancer Social History Social History Household Members: Friend(s) Housing: House Housing Other:: with roomate Are you a primary healthcare facility administrator to a significant other at home: No Do you presently have visiting nurse or other home services: No Alcohol intake: current Alcohol intake frequency: 0-2 drinks per day Alcohol type: beer Patient Tobacco Use Status: Current everyday Tobacco user Tobacco use type: Cigarette Cigarette Packs Per Day: 3 Cigarettes Per Day: 60.0 Years Smoked: 31 e-Cigarette/Vaping Use: Currently Using Second Hand Smoke Exposure: No Advance Directives: No Advance Directives Information Provided: No service: No Current occupational status: employed Current occupation: rt hand / golf course Cognitive needs: No Hearing needs: No Vision needs: Yes Physical Exam ED Vital Signs: Vital Signs - 24 hr 10/24/22 16:01 Temperature 97.8 F Pulse Rate 95 Respiratory Rate 18 Blood Pressure 136/93 H Pulse Oximetry 95 Oxygen Delivery Method Room Air BMI result Body Mass Index 18.2 Appearance: Alert. Oriented X3. No acute distress. Head: normocephalic, atraumatic. Neck: Normal inspection. CVS: Normal heart rate and rhythm. Pulses normal. Respiratory: No respiratory distress. Speaking in complete sentences Skin: Skin warm and dry. Normal skin color. Normal skin turgor. No rashes. Neuro/psych: Oriented X 3. steady gait Course Course Course Narrative: RME - 52 yo male with history of chronic LLE DVT since 2013 on Eliquis who presents to the ER for evaluation of a +LE doppler that was done yesterday. Ultrasound showed: Predominantly nonocclusive noted in the left left common femoral vein extending to the femoral vein into the popliteal vein which appears somewhat eccentric and echogenic suggestive of chronicity, similar to prior. Thrombus appears occlusive in the mid femoral vein. Left posterior tibial vein appears patent. The left peroneal vein was not well seen. Patient recently had dose reduction in Eliquis from 5 mg to 2.5 for 10 days when he was having issues with bleeding wounds on his arms. He is still on the lower dose of 2.5 mg bid. Plan: basic labs & discuss plan with anticoagulation with Dr. Hylton who the patient has seen before Medical Decision Making Medical Decision Making [facility] Narrative: 52 yo male presenting with +LE doppler from yesterday. Findings appear to be chronic. He has had LLE DVT for the last 9-10 years. His dose of eliquis was recently decreased. Case was d/w Dr. Hylton, Doppler results sent to him. He is recommending going back up on the Eliquis, continuing lifelong anticoagulation and following up in the office as an outpatient. His labs showed improvement in his anemia and chronci hyponatremia. Plan d/w patient and friend who expressed understanding. he will go back up to 5mg BID tonight. He has plenty of the med at home. Differential Diagnosis Differential Diagnoses: The differential diagnosis associated with the presentation includes acute DVT, chronic DVT, hypercoagulable state, medication noncompliance Consult Healthcare Provider Management of the patient was discussed with: Medical Office Technology Instructor Dr. Hylton vascular surgeon Lab Data [facility] Lab Attestation statement: I reviewed the patient's lab results. 10/24/22 16:16 10/24/22 16:16 Labs: Lab Results 10/24/22 10/24/22 10/24/22 Range/Units 16:16 16:16 16:16 WBC 9.0 (4.8-10.8) X10*3/uL RBC 4.23 L (4.60-5.80) X10*6/uL Hgb 14.0 (14.0-18.0) g/dl Hct 39.8 L (42.0-52.0) % MCV 94.1 (80.0-98.0) fL MCH 33.1 H (27.0-33.0) pg MCHC 35.2 (31.0-36.0) g/dl RDW 11.9 (11.0-16.0) % Plt Count 200 (160-400) X10*3/uL MPV 9.6 (9.4-12.4) fL Immature Gran % (Auto) 0.6 H (0.0-0.4) % Neut % (Auto) 91.8 H (45-73) % Lymph % (Auto) 4.7 L (20-40) % [place] % (Auto) 1.9 L (2-11) % Eos % (Auto) 0.7 (0-4) % Baso % (Auto) 0.3 (0-2) % Lymph # (Auto) 0.4 L (1.2-4.9) X10*3/uL [place] # (Auto) 0.2 (0.1-1.2) X10*3/uL Eos # (Auto) 0.1 (0.0-0.4) X10*3/uL Baso # (Auto) 0.0 (0.0-0.2) X10*3/uL Abs Immat Gran (auto) 0.05 H (0.00-0.03) X10*3/uL Absolute Neuts (auto) 8.3 (2.0-8.3) x10*3/uL Absolute Nucleated RBC 0.000 (0.0-0.012) X10*3/uL Nucleated RBC % (auto) 0.0 (0.0-0.2) /100WBC Smear Tech's Comments VERIFIED PT 11.3 (10.0-13.1) SEC INR 1.0 (0.9-1.1) APTT 37.5 H (26.0-36.4) SEC Sodium 132 L (135-145) mmol/L Potassium 3.8 (3.3-5.1) mmol/L Chloride 97 (96-108) mmol/L Carbon Dioxide 23 (22-29) mmol/L Anion Gap 16 (12-20) BUN < 3 L (9-16) mg/dL Creatinine 0.51 (0.5-1.4) mg/dL Estim Creat Clear Calc 146.1 Estimated GFR > 60 Random Glucose 157 H (60-115) mg/dL Calcium 8.2 L (8.4-10.2) mg/dL Total Bilirubin 0.4 (0.0-1.0) mg/dL Direct Bilirubin 0.2 (0.0-0.5) mg/dL AST 116 H (5-37) U/L ALT 53 H (0-40) U/L Alkaline Phosphatase 389 H (39-117) U/L Total Protein 7.5 (6.5-8.0) g/dL Albumin 3.1 L (3.5-5.0) g/dL Independent Interpretation I performed an independent interpretation of an: Ultrasound Interpretation: multiple DVTs apprecaited, agree w/ radiology read Radiology Impression Discussion of test interpretation with radiology: I have reviewed the radiologist's reading. Radiologist Impression: ?US/US venous duplex LE BI IMPRESSION: Predominantly nonocclusive noted in the left left common femoral vein extending to the femoral vein into the popliteal vein which appears somewhat eccentric and echogenic suggestive of chronicity, similar to prior. Thrombus appears occlusive in the mid femoral vein. Left posterior tibial vein appears patent. The left peroneal vein was not well seen. ? No evidence of right lower extremity DVT. Independent Historian Clinical information obtained from an independent historian. History obtained from or confirmed by: Friend External Record Review External record reviewed: Outpatient record, Prior outpatient labs and Prior outpatient radiology Prescription Management I considered prescription management with: Other (NOAC vs lovenox) Dr. Hylton recommending go back to full dose eliquis dosing Chronic Conditions Patient?s care impacted by: Other (Chronic LLE DVT, PVD) Social Determinants Patient?s care significantly limited by Social Determinants of Health including: Alcoholism and drug addiction in family and Other Social Determinant of Health Critical Care Time Critical Care Time Critical Care Time: No Discharge Plan Discharge Clinical Impression: Chronic deep vein thrombosis of left lower extremity Patient Disposition: Home, Self-Care Instructions: Deep Vein Thrombosis (ED) Additional Instructions: Case was discuss with Dr. Hylton, the vascular doctor Recommending going back up on your Eliquis 5 mg two times per day going forward Follow up with Dr. Hylton in the office - call next week to make an appointment Prescriptions: No Action hydroxychloroquine 200 mg tablet 200 mg PO BID Qty: 180 1RF multivitamin Tablet 1 tab PO DAILY buprenorphine-naloxone [Suboxone] 8-2 mg film 1 film sublingual BID tamsulosin 0.4 mg capsule 0.4 mg PO BEDTIME 90 Days Qty: 90 1RF Eliquis 2.5 mg tablet 2.5 mg PO BID 30 Days Qty: 60 3RF ipratropium-albuterol 0.5 mg-3 mg(2.5 mg base)/3 mL solution for nebulization 3 ml inhalation Q6-8H PRN (Reason: wheezing) 30 Days Qty: 180 6RF amoxicillin-pot clavulanate 875-125 mg tablet 1 tab PO BID 30 Days Qty: 60 3RF prednisone 20 mg tablet 20 mg PO DAILY 30 Days Qty: 30 3RF Referrals: [facility] [place] [facility] [Provider Group] (chronic LLE DVT on Eliquis) Lizandro Teran MD [Primary Care Provider] - Interventions: ED Discharge Assessment Last Done: 10/24/22 16:55
[2022-10-24 16:01] VITALS: BP 136/93; PULSE 95; RESP 18; TEMP 36.6; O2SAT 95; BMI 18.2
[2022-10-24 16:28] LABS: Basophils Percent Auto 0.3 % (0-2); Eosinophils Absolute Auto 0.1 X10*3/uL (0.0-0.4); Eosinophils Percent Auto 0.7 % (0-4); Hematocrit 39.8 % (42.0-52.0); Imm Gran Abs Auto 0.05 X10*3/uL (0.00-0.03); Imm Gran Pct Auto 0.6 % (0.0-0.4); Lymphocytes Absolute Auto 0.4 X10*3/uL (1.2-4.9); Lymphocytes Percent Auto 4.7 % (20-40); MANUAL DIFF FLAG SCAN; Mean Corpuscular HGB Conc 35.2 g/dl (31.0-36.0); Mean Corpuscular Hemoglobin 33.1 pg (27.0-33.0); Mean Corpuscular Volume 94.1 fL (80.0-98.0); Mean Platelet Volume 9.6 fL (9.4-12.4); Monocytes Absolute Auto 0.2 X10*3/uL (0.1-1.2); Monocytes Percent Auto 1.9 % (2-11); Neutrophils Absolute Auto 8.3 x10*3/uL (2.0-8.3); Neutrophils Percent Auto 91.8 % (45-73); Platelet Count 200 X10*3/uL (160-400); Red Blood Count 4.23 X10*6/uL (4.60-5.80); Red Cell Distribution Width 11.9 % (11.0-16.0); SCAN SMEAR FLAG 1
[2022-10-24 16:31] LABS: Prothrombin Time 11.3 SEC (10.0-13.1)
[2022-10-24 16:34] LABS: Partial Thromboplastin Time 37.5 SEC (26.0-36.4)
[2022-10-24 16:46] LABS: Alanine Aminotransferase 53 U/L (0-40); Albumin Level 3.1 g/dL (3.5-5.0); Alkaline Phosphatase 389 U/L (39-117); Anion Gap 16 (12-20); Aspartate Amino Transferase 116 U/L (5-37); Bilirubin Direct 0.2 mg/dL (0.0-0.5); Bilirubin Total 0.4 mg/dL (0.0-1.0); Blood Urea Nitrogen < 3 mg/dL (9-16); Calcium 8.2 mg/dL (8.4-10.2); Carbon Dioxide 23 mmol/L (22-29); Chloride 97 mmol/L (96-108); Creatinine Clr Calc Pharmacy 146.1; Estimated Glomerular Filt Rate > 60; Glucose Random 157 mg/dL (60-115); Potassium 3.8 mmol/L (3.3-5.1); Sodium 132 mmol/L (135-145); Total Protein 7.5 g/dL (6.5-8.0)
[2022-10-24 16:52] LABS: SLIDE REVIEW VERIFIED
== END 2022-10-24 16:56 | disposition home or self-care (01) ==
PROVIDERS: Physician Assistant; Emergency Provider Emergency Medicine; PCP Internal Medicine
DX: I82.502 Chronic embolism and thrombosis of unspecified deep veins of left lower extremity (principal); Z79.899 Other long term (current) drug therapy; Z79.01 Long term (current) use of anticoagulants
CPT/HCPCS: 36415; 80048; 80076; 85025; 85610; 85730; 99283

== ENCOUNTER → 2022-10-29 13:11 | Outpatient (BNVA) | payer OTHER, SELFPAY | PROVIDERS: PCP Internal Medicine; Visit Provider Internal Medicine Pulmonary Disease | DX: J85.2 Abscess of lung without pneumonia (principal); J44.9 Chronic obstructive pulmonary disease, unspecified | CPT/HCPCS: 99212 ==

== ENCOUNTER 2022-10-30 16:00 | Outpatient (RCR) | payer OTHER, SELFPAY ==
--- NOTE | 2022-10-16 17:12 | MHC.PT.EP ---
[facility] [place] Office [place] Office [place] Office [address] Odette Blanc [address] [phone] F: [phone] F: [phone] F: [phone] F: [phone] Physical Therapy Plan of Care Date of Evaluation: Date of Surgery: Diagnosis: bilateral leg weakness (MD Dx) generalized weakness and deconditioning (PT Dx) Assessment: Patient is a 52 y.o. male who is referred to PT by Dr. Lizandro Teran MD with Dx of bilateral leg weakness. Patient presents with general deconditioning in both upper body and lower body following period of sedentary living per patient for a few months as well as having abdominal surgery 08/20/22 with a week of hospitalization. Patient impairments include poor posture, weakness, antalgic gait, impaired balance. Patient current functional limitations are walking long distances, working on maintenance on golf course, bending, cooking, standing for prolonged period of time, sit to stand low surfaces. Patient will benefit from skilled PT to address aforementioned impairments and functional limitations to meet established goals. Fair prognosis as he reports low motivation to exercise at home and multiple co-morbidities. Frequency and Duration: The patient will be seen 2x/week for 4 weeks Short Term Goals: 2 weeks Patient demonstrates consistency and independence with HEP at least 1x/week when not at PT help to help build leg strength/endurance. Retirement Goals: 4 weeks Patient presents with increased bilateral glute strength 4/5 to be able to perform sit to stand with minimal use of hands. Patient presents with increased bilateral quad strength 4/5 to be able to perform reciprocal stairs with minimal use of railings. Treatment Plan: Modalities to reduce pain, spasms and effusion. Manual therapy to restore motion and function. Therapeutic exercise to improve strength and flexibility. Neuromuscular re-education for posture and balance. Therapeutic activities to return to functional activities of daily living. Electronically signed by: Isadora Atkinson, PT, DPT Please sign and return to therapist. Thank you for your referral.
--- NOTE | 2022-12-11 18:06 | MHC.PT.DC ---
[facility] [place] Office [place] Office [place] Office [address] Odette Blanc 140 [facility] [phone] F: [phone] F: [phone] F: [phone] F: [phone] Physical Therapy Discharge Report Diagnosis: bilateral leg weakness (MD Dx) generalizaed weakness and deconditioning (PT Dx) Date of Surgery: Date of Evaluation: 10/16/22 Date of Discharge: 12/11/22 Treatments to Date: 4 Cancellations to Date: 2 No Shows to Date: 1 Discharge Status: Discharge Summary: Yan was given a home exercise program. He did not show to his last scheduled PT appointment and is discharged for visit non-compliance. Electronically signed by: Isadora Atkinson, PT, DPT Please sign and return to therapist. Thank you for your referral.
== END 2022-12-11 18:07 | disposition home or self-care (01) ==
LOC: HO.PT 16:00
PROVIDERS: PCP Internal Medicine; Visit Provider Internal Medicine
DX: R29.898 Other symptoms and signs involving the musculoskeletal system (principal)
CPT/HCPCS: 97110; 97162

== ENCOUNTER → 2022-11-20 13:43 | Outpatient (BNVA) | payer OTHER, SELFPAY | PROVIDERS: PCP Internal Medicine; Referring Provider Internal Medicine; Visit Provider Internal Medicine | DX: I25.10 Atherosclerotic heart disease of native coronary artery without angina pectoris (principal); R94.31 Abnormal electrocardiogram [ECG] [EKG]; R07.9 Chest pain, unspecified; F17.210 Nicotine dependence, cigarettes, uncomplicated | CPT/HCPCS: 99212 ==

== ENCOUNTER 2022-11-27 15:26 | Outpatient (REF) | payer OTHER, SELFPAY ==
--- NOTE | ~2022-11-27 | CT_ITS ---
EXAMINATION: CT CHEST WITHOUT CONTRAST CLINICAL INFORMATION: Lung abscess COMPARISON: Previous chest CT most recent July 2022 TECHNIQUE: Multidetector volumetric CT imaging of the chest was done. Axial MIP volume rendering provided. Sagittal and coronal reformatted images were obtained. This CT examination was performed using dose optimization techniques as appropriate, variously including the following: *Automated exposure control *Adjustment of mA and/or kV according to patient size (this includes techniques or standardized protocols for targeted exams where dose is matched to indication/reason for exam; i.e. extremities or head) *Use of iterative reconstruction technique DLP: 121 mGy-cm FINDINGS: LUNGS: Severe paraseptal and centrilobular emphysema. Bronchial wall thickening and increased peribronchial attenuation seen in the right middle and right lower lobes. Increasing airspace disease or consolidation seen in the right middle lobes suggestive of worsening pneumonia for example axial image 55 series 3. Cavity in the right lower lobe measures 2.2 x 2.5 cm axial image 46 series 3. The fluid component appears slightly decreased from most recent exam July 2022. 3 x 8 mm irregular parenchymal density left lung apex axial image 13 series 3 is stable. Bronchial wall thickening, soft tissue opacification or mucus plugging, increased peribronchial attenuation and bronchiectasis in the left lower lobe and milder changes seen in the lingula. Cavitary lesion in the left lower lobe appears unchanged in size measuring 2 x 3.8 cm axial image 53 series 3. Fluid component not appreciably changed. Increasing cystic and decreasing solid or fluid component in the left lower lobe probably representing focal bronchiectasis measuring 1 cm axial image 51 series 3. No central endobronchial or endotracheal lesion. MEDIASTINUM: Stable mediastinal lymphadenopathy. Largest lymph node is a subcarinal lymph node measuring 1.2 cm in short axis. Axillary adenopathy difficult to evaluate due to lack of IV contrast. Normal thyroid gland. Normal heart size. Moderate to severe coronary artery calcification. No pericardial effusion. Normal caliber thoracic aorta. Upper normal-sized pulmonary arteries. CORONARY ARTERY CALCIFICATION: Severe PLEURA: There is no pleural effusion. No pleural mass or thickening. AXILLA: No lymphadenopathy. UPPER ABDOMEN: Unremarkable. OSSEOUS STRUCTURES: Unremarkable. CT/CT chest wo IV con IMPRESSION: Severe emphysema. Increasing airspace disease in the right middle lobe suggestive of worsening pneumonia. Continued slight interval decrease in fluid component on the right otherwise stable cavitary lesions in the right lower lobe and left lower lobe. Severe airways disease in the right middle bilateral lower lobes. Stable mediastinal lymphadenopathy. Moderate to severe coronary artery calcification. Fleischner guidelines were followed.
== END 2022-11-27 15:27 | disposition home or self-care (01) ==
LOC: HO.CT 15:26
PROVIDERS: PCP Internal Medicine; Visit Provider Internal Medicine Pulmonary Disease
DX: J85.2 Abscess of lung without pneumonia (principal)
CPT/HCPCS: 71250

== ENCOUNTER → 2022-12-25 14:01 | Outpatient (BNVA) | payer OTHER, SELFPAY | PROVIDERS: PCP Internal Medicine; Visit Provider Internal Medicine Pulmonary Disease | DX: J44.9 Chronic obstructive pulmonary disease, unspecified (principal); J85.2 Abscess of lung without pneumonia | CPT/HCPCS: 99212 ==

== ENCOUNTER 2023-01-05 14:00 | Outpatient (AMB) | payer OTHER, SELFPAY ==
--- NOTE | 2023-01-05 14:03 | MHC.OFFVIS ---
Intake Vital Signs 01/05/23 14:15 Height 6 ft Weight 135 lb BMI 18.3 BP 128/78 Pulse 110 H Pulse Oximetry (%) 95 Intake Visit Reasons: Ref.,Abscess of lung without pneumonia Allergies Sulfa (Sulfonamide Antibiotics) [SULFA (SULFONAMIDE ANTIBIOTICS)] Adverse Reaction (Intermediate, Verified 01/05/23 14:16) NAUSEA & VOMITING doxycycline Adverse Reaction (Mild, Verified 01/05/23 14:16) Vomiting HPI Ref.,Abscess of lung without pneumonia HPI Details He has cough and productive yellow sputum for months. He has small cavitary areas seen [facility] November 2022. He has no shortness of breath today. [facility] Medical History (Updated 01/07/23 @ 12:58 by Yina Dennis MD) Abdominal hernia Alcohol use Anxiety Bilateral leg weakness Chronic deep vein thrombosis (DVT) of left lower extremity COPD (chronic obstructive pulmonary disease) Elevated LFTs Epidermal cyst History of substance abuse Pneumonia with cavity of lung Pulmonary emphysema Smoker Varicose veins of both lower extremities Surgical History History of laparoscopic cholecystectomy (~08/19/22) Family History Father CVD (cardiovascular disease) Mother Rheumatoid arthritis Sister No problems noted. Maternal Uncle Prostate cancer Maternal Uncle Lung cancer Colon cancer Social History Household Members: Friend(s) Housing: House Housing Other:: with roomate Are you a primary healthcare science specialist to a significant other at home: No Do you presently have visiting nurse or other home services: No Alcohol intake: current Alcohol intake frequency: 0-2 drinks per day Alcohol type: beer Patient Tobacco Use Status: Current everyday Tobacco user Tobacco use type: Cigarette Cigarette Packs Per Day: 2 Cigarettes Per Day: 40 Years Smoked: 31 e-Cigarette/Vaping Use: Currently Using Second Hand Smoke Exposure: No service: No Current occupational status: employed Current occupation: rt hand / golf course Cognitive needs: No Hearing needs: No Vision needs: Yes Review of Systems Const All systems reviewed & are unremarkable except as noted in HPI and below Physical Exam Vital Signs: Last Vital Signs Pulse 110 H 01/05/23 14:15 BP 128/78 01/05/23 14:15 Pulse Ox 95 01/05/23 14:15 BMI result Body Mass Index 18.3 Const General: cooperative HEENT Head: Yes normal to inspection Face and sinus: Yes normal facial exam Mouth: Normal oral and palatal mucosa present Teeth and gingiva: dentition normal Eyes General: appearance normal, both eyes and all related structures Pupils: Equal, round and reactive pupils present Resp Effort & Inspection: normal respiratory effort Cardio Rate: regular rate Rhythm: regular rhythm GI Palpation (GI): Soft to palpation and nontender General: Yes no CVA tenderness Back/Spine/Pelvis Back: no CVA tenderness Skin General skin exam: no rashes or lesions noted Neuro General: moves all extremities Cranial nerves: Yes Equal, round and reactive pupils present Extrem General: Yes normal to inspection Psych Appearance: grossly normal Assessment & Plan Assessment & Plan (1) Pneumonia with cavity of lung: Comment: He has probable chronic bronchiectasis. He has no TOM or tuberculosis reported. I doubt this is fungal disease. Code(s): J18.9 - Pneumonia, unspecified organism; J98.4 - Other disorders of lung Plan: Probable three weeks Augmentin since not allergic. Be sure oral health is taken care of prevent infection. Coding Level of Care Code New Pt Level 3 (28162) Diagnoses Pneumonia with cavity of lung J18.9; J98.4
[2023-01-05 14:15] VITALS: BP 128/78; PULSE 110; O2SAT 95; BMI 18.3
== END 2023-01-05 15:11 | disposition home or self-care (01) ==
LOC: HO.HID 14:00
PROVIDERS: PCP Internal Medicine; Visit Provider Internal Medicine
DX: J18.9 Pneumonia, unspecified organism (principal); J98.4 Other disorders of lung
CPT/HCPCS: 99203

== ENCOUNTER → 2023-01-05 14:00 | Outpatient (BNVA) | payer OTHER, SELFPAY | PROVIDERS: PCP Internal Medicine; Visit Provider Internal Medicine | DX: J85.2 Abscess of lung without pneumonia (principal); J18.9 Pneumonia, unspecified organism; J44.9 Chronic obstructive pulmonary disease, unspecified; U07.0 Vaping-related disorder; F17.210 Nicotine dependence, cigarettes, uncomplicated | CPT/HCPCS: 99202 ==

== ENCOUNTER 2023-01-08 12:46 | Outpatient (RCR) | payer OTHER, SELFPAY | END 2023-04-17 14:45 | disposition home or self-care (01) | LOC: HO.WCC 12:46 | PROVIDERS: PCP Internal Medicine; Visit Provider Surgery | DX: I87.332 Chronic venous hypertension (idiopathic) with ulcer and inflammation of left lower extremity (principal); L97.822 Non-pressure chronic ulcer of other part of left lower leg with fat layer exposed; L89.899 Pressure ulcer of other site, unspecified stage; E44.0 Moderate protein-calorie malnutrition; F17.210 Nicotine dependence, cigarettes, uncomplicated; R60.0 Localized edema; Z79.01 Long term (current) use of anticoagulants; Z86.718 Personal history of other venous thrombosis and embolism | CPT/HCPCS: 11042; 97597; 97602 ==

== ENCOUNTER 2023-02-05 18:09 | Emergency (ER) | payer OTHER, SELFPAY ==
--- NOTE | 2023-02-05 18:20 | ECG_ITS ---
Test Reason : syncope Blood Pressure : / mmHG Vent. Rate : 087 BPM Atrial Rate : 087 BPM P-R Int : 176 ms QRS Dur : 096 ms QT Int : 386 ms P-R-T Axes : 070 -51 059 degrees QTc Int : 464 ms Normal sinus rhythm Left anterior fascicular block Septal infarct (cited on or before 05-SEP-2021) Abnormal ECG When compared with ECG of 16-AUG-2022 07:33, OK interval has decreased Left anterior fascicular block is now Present Referred By: Hortencia Martinez Electronically Signed By:BUCK BARBOZA
[2023-02-05 19:08] VITALS: BP 127/84; PULSE 93; RESP 20; TEMP 37.3; O2SAT 94; BMI 18.3
--- NOTE | 2023-02-05 19:09 | ED_ITS ---
HPI - Syncope General Chief Complaint: Syncope Stated Complaint: passed out at work today Related Data Home Medications Medication Instructions Recorded Confirmed buprenorphine 8 mg-naloxone 2 mg 2 film sublingual DAILY 08/10/20 02/06/23 sublingual film (Suboxone) multivitamin 1 tab PO DAILY 09/05/21 02/06/23 Previous Rx's Medication Instructions Recorded hydroxychloroquine 200 mg tablet 200 mg PO BID #180 tabs 10/21/22 albuterol sulfate 90 mcg/actuation 2 puff inhalation Q4-6H PRN 12/25/22 aerosol inhaler shortness of breath or wheezing 30 days #1 ea prednisone 20 mg tablet 20 mg PO DAILY 30 days #30 tabs 01/14/23 apixaban 5 mg tablet (Eliquis) 5 mg PO BID 30 days #60 tabs 01/26/23 ipratropium 0.5 mg-albuterol 3 mg 3 ml inhalation Q6-8H PRN wheezing 02/03/23 (2.5 mg base)/3 mL nebulization 30 days #180 mL soln clindamycin HCl 300 mg capsule 600 mg PO Q8H #21 caps 02/08/23 folic acid 1 mg tablet 1 mg PO DAILY #30 tabs 02/08/23 levofloxacin 750 mg tablet 750 mg PO DAILY #10 tabs 02/08/23 nicotine 21 mg/24 hr daily 21 mg transdermal DAILY #30 ea 02/08/23 transdermal patch thiamine mononitrate (vit B1) 100 100 mg PO DAILY #30 tabs 02/08/23 mg tablet Allergies Allergy/AdvReac Type Severity Reaction Status Date / Time Sulfa (Sulfonamide AdvReac Intermediate NAUSEA & Verified 02/05/23 19:13 Antibiotics) VOMITING [SULFA (SULFONAMIDE ANTIBIOTICS)] doxycycline AdvReac Mild Vomiting Verified 02/05/23 19:13 [facility] Past Medical History Medical History (Updated 02/10/23 @ 13:41 by YU oGncalves) AA (alcohol abuse) Abdominal hernia Alcohol use Anxiety Bilateral leg weakness Chronic deep vein thrombosis (DVT) of left lower extremity COPD (chronic obstructive pulmonary disease) Elevated LFTs Epidermal cyst History of substance abuse Pneumonia with cavity of lung Pulmonary emphysema Smoker Varicose veins of both lower extremities Surgical History History of laparoscopic cholecystectomy (~08/19/22) Family History Family History Father CVD (cardiovascular disease) Mother Rheumatoid arthritis Sister No problems noted. Maternal Uncle Prostate cancer Maternal Uncle Lung cancer Colon cancer Social History Social History Household Members: Other Housing: House Housing Other:: with roomate Are you a primary post acute care nurse to a significant other at home: No Do you presently have visiting nurse or other home services: No Alcohol intake: current Alcohol intake frequency: 3 or more drinks per day Al cohol type: beer Patient Tobacco Use Status: Current everyday Tobacco user Tobacco use type: Cigarette Cigarette Packs Per Day: 3 Cigarettes Per Day: 60.0 Years Smoked: 31 e-Cigarette/Vaping Use: Currently Using Second Hand Smoke Exposure: Yes service: No Current occupational status: employed Current occupation: rt hand / golf course Cognitive needs: No Hearing needs: No Vision needs: Yes Physical Exam Vital Signs: Vital Signs: Last Vital Signs Temp 99.2 F 02/05/23 19:08 Pulse 93 02/05/23 19:08 Resp 20 02/05/23 19:08 BP 127/84 02/05/23 19:08 Pulse Ox 94 02/05/23 19:08 O2 Del Method Room Air 02/05/23 19:08 BMI result Body Mass Index 18.3 Course Course Course Narrative: RME: 52-year-old male with past medical history ETOH abuse, anxiety, COPD, substance abuse, emphysema, c/o syncopal episode while at work [place] today around 10:30AM. 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 Patient doesnt remember incident. Admits to +ETOH, drinking about 10 beers today. Admits to hx seizures. Also reports L side pain + EtOH odor on breath. Left anterior lateral rib tenderness noted, abdomen soft/nontender, ambulating with steady gait EKG, labs, ethanol/tox screen, x-ray, CT head/C-spine and orthostatics ordered Full HPI, ROS and PE to be performed by primary ED provider. Discharge Plan Discharge Clinical Impression: Syncope Patient Disposition: Elopement Prescriptions: No Action hydroxychloroquine 200 mg tablet 200 mg PO BID Qty: 180 1RF prednisone 20 mg tablet 20 mg PO DAILY 30 Days Qty: 30 3RF Eliquis 5 mg tablet 5 mg PO BID 30 Days Qty: 60 5RF ipratropium-albuterol 0.5 mg-3 mg(2.5 mg base)/3 mL solution for nebulization 3 ml inhalation Q6-8H PRN (Reason: wheezing) 30 Days Qty: 180 6RF multivitamin Tablet 1 tab PO DAILY nicotine 21 mg/24 hr Patch 24 Hour 21 mg transdermal DAILY Qty: 30 0RF folic acid 1 mg Tablet 1 mg PO DAILY Qty: 30 0RF thiamine mononitrate (vit B1) 100 mg Tablet 100 mg PO DAILY Qty: 30 0RF levofloxacin 750 mg tablet 750 mg PO DAILY Qty: 10 0RF clindamycin HCl 300 mg capsule 600 mg PO Q8H Qty: 21 0RF buprenorphine-naloxone [Suboxone] 8-2 mg film 2 film sublingual DAILY albuterol sulfate 90 mcg/actuation HFA aerosol inhaler 2 puff inhalation Q4-6H PRN (Reason: shortness of breath or wheezing) 30 Days Qty: 1 6RF Discharge Date/Time: 02/05/23 20:03
--- NOTE | 2023-02-05 19:46 | PC.NURSE ---
Not in waiting room when called @ 1930. I contacted this patient via phone, he stated he had an accident, diarrhea and had to go home to change. Per pt, he will not be returning @ this time.
== END 2023-02-05 20:03 | disposition left against medical advice (07) ==
PROVIDERS: Emergency Provider Emergency Medicine; PCP Internal Medicine
DX: R55 Syncope and collapse (principal); R07.81 Pleurodynia; F11.20 Opioid dependence, uncomplicated; F10.29 Alcohol dependence with unspecified alcohol-induced disorder; Y90.9 Presence of alcohol in blood, level not specified; F17.210 Nicotine dependence, cigarettes, uncomplicated; J44.9 Chronic obstructive pulmonary disease, unspecified; Z79.899 Other long term (current) drug therapy
CPT/HCPCS: 93005; 99283

== ENCOUNTER 2023-02-06 13:55 | Inpatient (IN) | payer OTHER, SELFPAY ==
[2023-02-06] VITALS (10 sets, daily range): BP systolic 135–159; BP diastolic 69–110; PULSE 90–123; RESP 16–20; TEMP 36.6–37.4; O2SAT 87–96; BMI 19.0
--- NOTE | ~2023-02-06 | XR_ITS ---
EXAMINATION: XR ribs LT min 3V w CXR1V, XR shoulder LT min 2V CLINICAL INFORMATION: Reason for Exam pain COMPARISON: Chest radiograph done on 02/06/2023. CT of the chest also done on 02/06/2023. TECHNIQUE: Frontal view of the chest and frontal view of the left hemithoracic ribs and 3 views of the left shoulder. FINDINGS: Chest: Concordant with prior CT scan done yesterday, there are multifocal patchy airspace disease present bilaterally with most pronounced changes seen at left lung base. Previously documented air-fluid level at the left lower lobe of the lung posteriorly is not reproduced in the current study. No evidence of any displaced left hemithoracic rib fractures. Left shoulder shows satisfactory bony alignment and intact cortices. XR/XR ribs LT min 3V w CXR1V IMPRESSION: 1. No radiographic evidence of any displaced left hemithoracic rib fracture or hemopneumothorax. Multifocal airspace disease seen bilaterally, better documented on prior CT scan of the chest done yesterday. 2. No radiographic evidence of any displaced fracture and/or dislocation at left shoulder.
--- NOTE | ~2023-02-06 | CT_ITS ---
EXAMINATION: CT HEAD WITHOUT CONTRAST CLINICAL INFORMATION: Trauma. COMPARISON: None available. TECHNIQUE: Contiguous axial imaging was performed from the skull base to vertex without intravenous administration of contrast. This CT examination was performed using dose optimization techniques as appropriate, variously including the following: *Automated exposure control. *Adjustment of mA and/or kV according to patient size (this includes techniques or standardized protocols for targeted exams where dose is matched to indication/reason for exam; i.e. extremities or head). *Use of iterative reconstruction technique. DLP: 1119 mGy-cm FINDINGS: There is cerebral volume loss with prominence of the lateral and the third ventricles. The cortical sulci are widened appropriately. The fourth ventricle and basal cisterns are normally outlined. There is no acute territorial defect, hemorrhage or midline shift. Calvarium: Intact. Maxillofacial Sinuses and Mastoids: Clear as visualized. CT/CT head/brain wo IV con IMPRESSION: 1. Cerebral volume loss. 2. No acute intracranial abnormality.
--- NOTE | ~2023-02-06 | XR_ITS ---
EXAMINATION: XR CHEST CLINICAL INFORMATION: Syncope COMPARISON: Previous chest CT most recent November 2022 TECHNIQUE: 2 views of the chest were obtained. FINDINGS: The cardiac and mediastinal contours are stable. The lungs are well-inflated suggestive of COPD. There are increased markings at the left lung base. This appears increased from previous chest CT topogram November 2022 and appearance is questionable for worsening pneumonia. There is chronic blunting at the costophrenic angles. No significant pleural effusion. No pneumothorax. Degenerative changes of the spine. XR/XR chest 2V IMPRESSION: Severe COPD. Question worsening pneumonia at the left lung base which appears increased from previous chest CT topogram November 2022.
--- NOTE | ~2023-02-06 | CT_ITS ---
EXAMINATION: CT chest w IV con. CLINICAL INFORMATION: Reason for Exam left chest injury yesterday COMPARISON: Multiple prior CTs most recent 11/27/2022 TECHNIQUE: Multidetector volumetric CT imaging of the chest was done. Axial MIP volume rendering provided. Sagittal and coronal reformatted images were obtained. This CT examination was performed using dose optimization techniques as appropriate, variously including the following: *Automated exposure control *Adjustment of mA and/or kV according to patient size (this includes techniques or standardized protocols for targeted exams where dose is matched to indication/reason for exam; i.e. extremities or head) *Use of iterative reconstruction technique CONTRAST: Noncontrasted study. DLP: 1374 mGy-cm FINDINGS: GERIATRIC SOCIAL WORKER: LINES/TUBES: Income Auditor reviewed, no lines. LUNGS: Lung parenchyma: There is severe quiñones lobar pulmonary emphysema. There are patchy interstitial and patchy solid consolidations opacification mostly at lower lobes, these have progressed worsened in comparison with recent CT from 11/27/2022 some of which are cavitary and/or fluid within cysts such as the one in the left lower lobe measure up to 3.2 cm and right lower lobe measure up to 1.8 cm, not significantly changed. The area of the lung involved with this process however has increased. The process although nonspecific, concerning for possible atypical infection such as viral or mycoplasma versus inflammatory. Lung nodules/masses: There are numerous bilateral lung densities, mostly probably infection and/or inflammatory, it is difficult to assess for lung nodules given the profound lung disease involved. AIRWAYS: Trachea and bronchi are normal. PLEURA: No pleural effusion or pneumothorax. MEDIASTINUM AND VALENTÍN: There are enlarged mediastinal and hilar lymph nodes uncertain etiology could be reactive. VESSELS: HEART AND PERICARDIUM: Thoracic aorta is normal in size. Heart is normal in size. No pericardial effusion. There are heavy coronary calcifications. Pulmonary arteries are normal in size. LOWER NECK, AXILLA: The visualized thyroid gland is unremarkable. No axillary mass or adenopathy. VISUALIZED ABDOMEN: Hypodense liver suggesting hepatic steatosis. CHEST WALL AND BONES: No chest wall mass. The visualized bony thorax is within normal limits. CT/CT chest w IV con IMPRESSION: * Severe quiñones lobar pulmonary emphysema. * There are patchy interstitial and patchy solid consolidations opacification mostly at lower lobes, these have progressed in comparison with recent CT from 11/27/2022 some of which are cavitary and/or fluid within cysts such as the one in the left lower lobe measure up to 3.2 cm and right lower lobe measure up to 1.8 cm, not significantly changed. The process although nonspecific, concerning for possible progression of atypical infection such as viral or mycoplasma pneumonia versus inflammatory. * There are numerous bilateral lung densities, mostly probably infection and/or inflammatory, it is difficult to assess for lung nodules given the profound lung disease involved. * Enlarged mediastinal and hilar lymph nodes uncertain etiology could be reactive. * Heavy coronary calcifications. * Hypodense liver suggesting hepatic steatosis. * Recommendation: Attention to short-term follow-up CT scan in 3 months recommended.
--- NOTE | ~2023-02-06 | XR_ITS ---
EXAMINATION: XR ribs LT min 3V w CXR1V, XR shoulder LT min 2V CLINICAL INFORMATION: Reason for Exam pain COMPARISON: Chest radiograph done on 02/06/2023. CT of the chest also done on 02/06/2023. TECHNIQUE: Frontal view of the chest and frontal view of the left hemithoracic ribs and 3 views of the left shoulder. FINDINGS: Chest: Concordant with prior CT scan done yesterday, there are multifocal patchy airspace disease present bilaterally with most pronounced changes seen at left lung base. Previously documented air-fluid level at the left lower lobe of the lung posteriorly is not reproduced in the current study. No evidence of any displaced left hemithoracic rib fractures. Left shoulder shows satisfactory bony alignment and intact cortices. XR/XR shoulder LT min 2V IMPRESSION: 1. No radiographic evidence of any displaced left hemithoracic rib fracture or hemopneumothorax. Multifocal airspace disease seen bilaterally, better documented on prior CT scan of the chest done yesterday. 2. No radiographic evidence of any displaced fracture and/or dislocation at left shoulder.
--- NOTE | 2023-02-06 14:19 | ED.GENADULT ---
HPI - General Adult General Chief complaint: Syncope Stated complaint: Fall yesterday, R side pain per EMS Time Seen by Provider: 02/06/23 16:44 Source: patient Limitations: no limitations History of Present Illness HPI narrative: 52-year-old male with history of ETOH abuse, anxiety, COPD, substance abuse, emphysema presents for evaluation. Patient reportedly had a syncopal event on the golf [place] round 10 30 yesterday morning. 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 Was unwitnessed. He had an unknown down time. Patient is did not remember the incident. He admitted to drinking alcohol. Typically drinks about 10 beers per day. He admits to history of seizures as well. He was actually in the emergency department yesterday. Related Data Home Medications Medication Instructions Recorded Confirmed buprenorphine 8 mg-naloxone 2 mg 1 film sublingual BID 08/10/20 12/23/22 sublingual film (Suboxone) multivitamin 1 tab PO DAILY 09/05/21 12/23/22 Previous Rx's Medication Instructions Recorded tamsulosin 0.4 mg capsule 0.4 mg PO BEDTIME 90 days #90 caps 09/16/22 hydroxychloroquine 200 mg tablet 200 mg PO BID #180 tabs 10/21/22 albuterol sulfate 90 mcg/actuation 2 puff inhalation Q4-6H PRN 12/25/22 aerosol inhaler shortness of breath or wheezing 30 days #1 ea umeclidinium 62.5 mcg-vilanterol 1 inh inhalation DAILY 30 days #1 12/25/22 25 mcg/actuation powdr for ea inhalation (Anoro Ellipta) prednisone 20 mg tablet 20 mg PO DAILY 30 days #30 tabs 01/14/23 apixaban 5 mg tablet (Eliquis) 5 mg PO BID 30 days #60 tabs 01/26/23 ipratropium 0.5 mg-albuterol 3 mg 3 ml inhalation Q6-8H PRN wheezing 02/03/23 (2.5 mg base)/3 mL nebulization 30 days #180 mL soln Allergies Allergy/AdvReac Type Severity Reaction Status Date / Time Sulfa (Sulfonamide AdvReac Intermediate NAUSEA & Verified 02/05/23 19:13 Antibiotics) VOMITING [SULFA (SULFONAMIDE ANTIBIOTICS)] doxycycline AdvReac Mild Vomiting Verified 02/05/23 19:13 [facility] Past Medical History Medical History (Updated 02/06/23 @ 21:01 by Jono Calderón MD) Abdominal hernia Alcohol use Anxiety Bilateral leg weakness Chronic deep vein thrombosis (DVT) of left lower extremity COPD (chronic obstructive pulmonary disease) Elevated LFTs Epidermal cyst History of substance abuse Pneumonia with cavity of lung Pulmonary emphysema Smoker Varicose veins of both lower extremities Surgical History History of laparoscopic cholecystectomy (~08/19/22) Family History Family History Father CVD (cardiovascular disease) Mother Rheumatoid arthritis Sister No problems noted. Maternal Uncle Prostate cancer Maternal Uncle Lung cancer Colon cancer Social History Social History Household Members: Friend(s) Housing: House Housing Other:: with roomate Are you a primary child care specialist to a significant other at home: No Do you presently have visiting nurse or other home services: No Alcohol intake: current Alcohol intake frequency: 3 or more drinks per day Alcohol type: beer Patient Tobacco Use Status: Current everyday Tobacco user Tobacco use type: Cigarette Cigarette Packs Per Day: 2 Cigarettes Per Day: 40 Years Smoked: 31 Smoked in Last 30 Days: Yes e-Cigarette/Vaping Use: Currently Using Second Hand Smoke Exposure: No Use of substances other than those prescribed or required for medical reasons: No Advance Directives: No Advance Directives Information Provided: No service: No Current occupational status: employed Current occupation: rt hand / golf course Cognitive needs: No Hearing needs: No Vision needs: Yes Physical Exam ED Vital Signs: Vital Signs - 24 hr 02/06/23 14:16 02/06/23 17:08 02/06/23 18:18 Temperature 98 F 99.0 F Pulse Rate 105 H 90 123 H Respiratory Rate 19 18 18 Blood Pressure 135/69 143/90 H 156/99 H Pulse Oximetry 94 93 96 Oxygen Delivery Method Room Air Room Air Room Air Oxygen Flow Rate 02/06/23 18:49 02/06/23 19:46 Temperature 99.4 F Pulse Rate 101 H 108 H Respiratory Rate 16 20 Blood Pressure 159/110 H 152/97 H Pulse Oximetry 87 L 92 Oxygen Delivery Method Room Air Nasal Cannula Oxygen Flow Rate 2 BMI result Body Mass Index 19.0 Course Course Course Narrative: RME performed by Yesenia Montana PA-C. Patient is a 52 year old assigned male at presenting to the emergency department with syncope? Labs ordered. Patient placed back in the waiting room pending room availability and results. Reevaluation(s) Reevaluation #1: The results are in. CT scan of the head and chest show no acute traumatic injury. There are some findings that patient will follow-up on. Patient will be admitted for acute alcohol withdrawal and hyponatremia Time: 21:07 Medications Administered Discontinued Medications Generic Name Dose Route Start Last Admin Trade Name Freq PRN Reason Stop Dose Admin Sodium Chloride 1,000 mls @ 999 mls/hr 02/06/23 17:30 02/06/23 18:24 Ns IV 02/06/23 18:30 999 mls/hr .Q1H1M SURESH Administration Iohexol 100 ml 02/06/23 19:29 02/06/23 19:29 Iohexol 350 Mg/Ml 100 Ml Infus..Btl IV 02/06/23 19:30 65 ml ONCE ONE Administration Lorazepam 2 mg 02/06/23 17:16 02/06/23 18:25 Lorazepam 2 Mg/Ml Vial IVPUSH 02/06/23 17:17 2 mg ONCE ONE Administration Nicotine 21 mg 02/06/23 17:16 02/06/23 18:24 Nicotine 21 Mg Patch.Td24 TRANSDERMA 02/06/23 17:17 21 mg ONCE ONE Administration Medical Decision Making Lab Data MDM Lab Attestation statement: I reviewed the patient's lab results. 02/06/23 14:46 02/06/23 14:46 Labs: Lab Results 02/06/23 02/06/23 02/06/23 Range/Units 14:46 14:46 14:46 WBC 17.4 H (4.8-10.8) X10*3/uL RBC 4.03 L (4.60-5.80) X10*6/uL Hgb 13.4 L (14.0-18.0) g/dl Hct 36.9 L (42.0-52.0) % MCV 91.6 (80.0-98.0) fL MCH 33.3 H (27.0-33.0) pg MCHC 36.3 H (31.0-36.0) g/dl RDW 12.3 (11.0-16.0) % Plt Count 167 (160-400) X10*3/uL MPV 9.8 (9.4-12.4) fL Immature Gran % (Auto) 0.9 H (0.0-0.4) % Neut % (Auto) 89.1 H (45-73) % Lymph % (Auto) 3.1 L (20-40) % Mccreary % (Auto) 6.5 (2-11) % Eos % (Auto) 0.2 (0-4) % Baso % (Auto) 0.2 (0-2) % Lymph # (Auto) 0.5 L (1.2-4.9) X10*3/uL [place] # (Auto) 1.1 (0.1-1.2) X10*3/uL Eos # (Auto) 0.0 (0.0-0.4) X10*3/uL Baso # (Auto) 0.0 (0.0-0.2) X10*3/uL Abs Immat Gran (auto) 0.16 H (0.00-0.03) X10*3/uL Absolute Neuts (auto) 15.5 H (2.0-8.3) x10*3/uL Absolute Nucleated RBC 0.000 (0.0-0.012) X10*3/uL Nucleated RBC % (auto) 0.0 (0.0-0.2) /100WBC Sodium 126 L (135-145) mmol/L Potassium 3.5 (3.3-5.1) mmol/L Chloride 90 L (96-108) mmol/L Carbon Dioxide 24 (22-29) mmol/L Anion Gap 16 (12-20) BUN < 3 L (9-16) mg/dL Creatinine 0.50 (0.5-1.4) mg/dL Estim Creat Clear Calc 155.2 Estimated GFR > 60 Random Glucose 90 (60-115) mg/dL Calcium 8.7 D (8.4-10.2) mg/dL Magnesium 1.5 L (1.6-2.6) mg/dL Total Bilirubin 0.6 (0.0-1.0) mg/dL AST 80 H (5-37) U/L ALT 38 (0-40) U/L Alkaline Phosphatase 314 H (39-117) U/L Troponin I High Sens 5.4 (<3.5-35.0) ng/L Total Protein 8.2 H (6.5-8.0) g/dL Albumin 3.0 L (3.5-5.0) g/dL Urine Color Urine Appearance Urine pH (5.0-9.0) Ur Specific [place] (1.005-1.025) Urine Protein (Neg-Trace) mg/dL Urine Glucose (UA) (Negative) mg/dL Urine Ketones (Negative) mg/dL Urine Blood (Negative) Urine Nitrite (Negative) Ur Leukocyte Esterase (Negative) Ethyl Alcohol mg/dL COVID-19 (QUINTIN) (Negative) COVID-19 Clin Com 02/06/23 02/06/23 02/06/23 Range/Units 14:46 14:46 18:20 WBC (4.8-10.8) X10*3/uL RBC (4.60-5.80) X10*6/uL Hgb (14.0-18.0) g/dl Hct (42.0-52.0) % MCV (80.0-98.0) fL MCH (27.0-33.0) pg MCHC (31.0-36.0) g/dl RDW (11.0-16.0) % Plt Count (160-400) X10*3/uL MPV (9.4-12.4) fL Immature Gran % (Auto) (0.0-0.4) % Neut % (Auto) (45-73) % Lymph % (Auto) (20-40) % [place] % (Auto) (2-11) % Eos % (Auto) (0-4) % Baso % (Auto) (0-2) % Lymph # (Auto) (1.2-4.9) X10*3/uL [place] # (Auto) (0.1-1.2) X10*3/uL Eos # (Auto) (0.0-0.4) X10*3/uL Baso # (Auto) (0.0-0.2) X10*3/uL Abs Immat Gran (auto) (0.00-0.03) X10*3/uL Absolute Neuts (auto) (2.0-8.3) x10*3/uL Absolute Nucleated RBC (0.0-0.012) X10*3/uL Nucleated RBC % (auto) (0.0-0.2) /100WBC Sodium (135-145) mmol/L Potassium (3.3-5.1) mmol/L Chloride (96-108) mmol/L Carbon Dioxide (22-29) mmol/L Anion Gap (12-20) BUN (9-16) mg/dL Creatinine (0.5-1.4) mg/dL Estim Creat Clear Calc Estimated GFR Random Glucose (60-115) mg/dL Calcium (8.4-10.2) mg/dL Magnesium (1.6-2.6) mg/dL Total Bilirubin (0.0-1.0) mg/dL AST (5-37) U/L ALT (0-40) U/L Alkaline Phosphatase (39-117) U/L Troponin I High Sens (<3.5-35.0) ng/L Total Protein (6.5-8.0) g/dL Albumin (3.5-5.0) g/dL Urine Color Yellow Urine Appearance Clear Urine pH 6.5 (5.0-9.0) Ur Specific [place] <= 1.005 (1.005-1.025) Urine Protein Negative (Neg-Trace) mg/dL Urine Glucose (UA) Negative (Negative) mg/dL Urine Ketones Negative (Negative) mg/dL Urine Blood Negative (Negative) Urine Nitrite Negative (Negative) Ur Leukocyte Esterase Negative (Negative) Ethyl Alcohol 83 mg/dL COVID-19 (QUINTIN) Negative (Negative) COVID-19 Clin Com See Note Findings consistent with significant leukocytosis, hyponatremia, low magnesium level, abnormal LFTs including an elevated alk-phos Independent Interpretation I performed an independent interpretation of an: EKG (Sinus tachycardia heart rate 105, tremulous baseline, poor precordial progression suggestive of an old anteroseptal wall [place], no acute ST elevations or depressions, no significant changes compared to yesterday), Plain X-Ray (No acute cardiopulmonary disease) and CT Scan (No acute traumatic injury) Radiology Impression Discussion of test interpretation with radiology: I have reviewed the radiologist's reading. Radiologist Impression: XR/XR chest 2V IMPRESSION: Severe COPD. Question worsening pneumonia at the left lung base which appears increased from previous chest CT topogram November 2022. Dictated By: Herlinda Armstrong MD Signed By: <Electronically signed by Herlinda Armstrong MD in [place]> 02/06/[address]/CT chest w IV con IMPRESSION: ? *? Severe quiñones lobar pulmonary emphysema. ? *? There are patchy interstitial and patchy solid consolidations opacification mostly at lower lobes, these have progressed in comparison with recent CT from 11/27/2022 some of which are cavitary and/or fluid within cysts such as the one in the left lower lobe measure up to 3.2 cm and right lower lobe measure up to 1.8 cm, not significantly changed. The process although nonspecific, concerning for possible progression of atypical infection such as viral or mycoplasma pneumonia versus inflammatory. ? *? There are numerous bilateral lung densities, mostly probably infection and/or inflammatory, it is difficult to assess for lung nodules given the profound lung disease involved. ? *? Enlarged mediastinal and hilar lymph nodes uncertain etiology could be reactive. ? *? Heavy coronary calcifications. ? *? Hypodense liver suggesting hepatic steatosis. ? *? Recommendation: Attention to short-term follow-up CT scan in 3 months recommended. ? Dictated By: Caterina Torrez MD Signed By: <Electronically signed by Caterina Torrez MD in [place]> 02/06/232015 CT/CT head/brain wo IV con IMPRESSION: 1. Cerebral volume loss. ? 2. No acute intracranial abnormality. Dictated By: Francisco Durbin Signed By: <Electronically signed by Carla Durbin in [place]> 02/06/232033 Critical Care Time Critical Care Time Critical Care Time: Yes Total Critical Care Time: 50 Attestation: At least 50 minutes of critical care time spent on current patient. Care was in terms of direct patient care, evaluation, re-evaluation, medical management, interpretation and medical management, treatment a potentially life-threatening condition exclusive of any procedures. Discharge Plan Discharge Clinical Impression: Smoker, Alcohol use, Abnormal EKG, Alcohol withdrawal, Elevated LFTs, Chest wall contusion, Head injury, Acute hyponatremia, Abnormal CT of the chest Patient Disposition: Admitted As Inpatient Prescriptions: No Action hydroxychloroquine 200 mg tablet 200 mg PO BID Qty: 180 1RF prednisone 20 mg tablet 20 mg PO DAILY 30 Days Qty: 30 3RF Eliquis 5 mg tablet 5 mg PO BID 30 Days Qty: 60 5RF ipratropium-albuterol 0.5 mg-3 mg(2.5 mg base)/3 mL solution for nebulization 3 ml inhalation Q6-8H PRN (Reason: wheezing) 30 Days Qty: 180 6RF multivitamin Tablet 1 tab PO DAILY buprenorphine-naloxone [Suboxone] 8-2 mg film 1 film sublingual BID tamsulosin 0.4 mg capsule 0.4 mg PO BEDTIME 90 Days Qty: 90 1RF albuterol sulfate 90 mcg/actuation HFA aerosol inhaler 2 puff inhalation Q4-6H PRN (Reason: shortness of breath or wheezing) 30 Days Qty: 1 6RF Anoro Ellipta 62.5-25 mcg/actuation blister with device 1 inh inhalation DAILY 30 Days Qty: 1 6RF
--- NOTE | 2023-02-06 14:20 | ECG_ITS ---
Test Reason : syncope Blood Pressure : / mmHG Vent. Rate : 105 BPM Atrial Rate : 105 BPM P-R Int : 166 ms QRS Dur : 084 ms QT Int : 352 ms P-R-T Axes : 055 -48 045 degrees QTc Int : 465 ms Poor data quality, interpretation may be adversely affected Sinus tachycardia Left anterior fascicular block Anteroseptal infarct (cited on or before 05-SEP-2021) Abnormal ECG When compared with ECG of 05-FEB-2023 18:36, Heart rate has increased Referred By: Yesenia Montana Electronically Signed By:BUCK BARBOZA
[2023-02-06 14:54] LABS: MANUAL DIFF FLAG NO
[2023-02-06 15:00] LABS: Basophils Percent Auto 0.2 % (0-2); Eosinophils Percent Auto 0.2 % (0-4); Hematocrit 36.9 % (42.0-52.0); Hemoglobin 13.4 g/dl (14.0-18.0); Imm Gran Abs Auto 0.16 X10*3/uL (0.00-0.03); Imm Gran Pct Auto 0.9 % (0.0-0.4); Lymphocytes Absolute Auto 0.5 X10*3/uL (1.2-4.9); Lymphocytes Percent Auto 3.1 % (20-40); Mean Corpuscular HGB Conc 36.3 g/dl (31.0-36.0); Mean Corpuscular Hemoglobin 33.3 pg (27.0-33.0); Mean Corpuscular Volume 91.6 fL (80.0-98.0); Mean Platelet Volume 9.8 fL (9.4-12.4); Monocytes Absolute Auto 1.1 X10*3/uL (0.1-1.2); Monocytes Percent Auto 6.5 % (2-11); Neutrophils Absolute Auto 15.5 x10*3/uL (2.0-8.3); Neutrophils Percent Auto 89.1 % (45-73); Platelet Count 167 X10*3/uL (160-400); Red Blood Count 4.03 X10*6/uL (4.60-5.80); Red Cell Distribution Width 12.3 % (11.0-16.0); White Blood Count 17.4 X10*3/uL (4.8-10.8)
[2023-02-06 15:07] LABS: Ethanol 83 mg/dL
[2023-02-06 15:12] LABS: Alanine Aminotransferase 38 U/L (0-40); Alkaline Phosphatase 314 U/L (39-117); Anion Gap 16 (12-20); Aspartate Amino Transferase 80 U/L (5-37); Bilirubin Total 0.6 mg/dL (0.0-1.0); Blood Urea Nitrogen < 3 mg/dL (9-16); Calcium 8.7 mg/dL (8.4-10.2); Carbon Dioxide 24 mmol/L (22-29); Chloride 90 mmol/L (96-108); Creatinine Clr Calc Pharmacy 155.2; Estimated Glomerular Filt Rate > 60; Glucose Random 90 mg/dL (60-115); Magnesium 1.5 mg/dL (1.6-2.6); Potassium 3.5 mmol/L (3.3-5.1); Sodium 126 mmol/L (135-145); Total Protein 8.2 g/dL (6.5-8.0)
[2023-02-06 15:17] LABS: COVID-19 Test Negative (Negative); IDNOW Serial# 08D9AD1C; Troponin-I High Sensitivity 5.4 ng/L (<3.5-35.0)
--- NOTE | 2023-02-06 17:20 | PC.NURSE ---
pt alert and oriented, skin pwd, respirations even and unlabored, pt reports that yesterday while at work pt just blocked out/passed out, denies hitting his head does have some bruising on the left sided of his chest/rib area, pain at 7/10. pt does have a slightly visible tremor pt is a daily drinker keeps reporting that he drinks a lot but does not able to report how much, sinus tach on the monitor
--- NOTE | 2023-02-06 18:21 | MHC.EDTECH ---
PATIENT WAS ASSISTED TO BATHROOM AND BACK TO BED ,PATIENT VOID IN URINAL OUT PUT WAS 600 ML ,URINE SAMPLE COLLECTED AND SENT TO LAB ,1800 VITALS SIGN TAKEN ,PT ALERT AND IS RESTING .
[2023-02-06] MEDS: Nicotine 21 MG PATCH.TD24 TRANSDERMA (18:24)
[2023-02-06] MEDS: 0.9 % Sodium Chloride 1,000 ML 999 ML IV (18:24)
[2023-02-06] MEDS: LORazepam 2 MG/ML VIAL IVPUSH (18:25)
[2023-02-06 18:32] LABS: Appearance Urine Clear; Color Urine Yellow; Glucose Urine UA Negative (Negative); Leukocyte Esterase Urine Negative (Negative); Nitrite Urine Negative (Negative); PH 6.5 (5.0-9.0); Specific Gravity - Urine <= 1.005 (1.005-1.025); Urine Blood Negative (Negative); Urine Ketones Negative (Negative); Urine Protein Negative (Neg-Trace)
--- NOTE | 2023-02-06 18:49 | PC.NURSE ---
pt in catscan. pt very drowsy post medication, o2 sat was low at 87%, pt put on 2L. blood pressure running high at 159/110. heart rate between 99-101.
[2023-02-06] MEDS: iohexoL 350 MG/ML 100 ML INFUS..BTL IV (19:29)
--- NOTE | 2023-02-06 19:41 | PC.NURSE ---
Addendum entered by Tamiko Avery 02/06/23 19:45: Pt instructed surgeon chief hernandez use for assistance. Original Note: This designer writer assumed care of this Pt at 1900. Pt at side of the bed attempting to get up to use urinal, bed soiled, incontinent care provided, Pt drowsy, awakens with verbal stimuli. A&O to self. Seizure precautions in place.
[2023-02-06] MEDS: Enoxaparin Sodium 40 MG/0.4 ML SYRINGE SUBCUT (21:30)
[2023-02-06] MEDS: Thiamine HCL 100 MG in 0.9 % Sodium Chloride 100 ML 202 MG IV (21:30)
--- NOTE | 2023-02-06 21:42 | PHA.MEDREC ---
Pharmacy Consult ? Medication Reconciliation Pharmacy has completed the medication reconciliation. Patient stated he is no longer on tamsulosin
--- NOTE | 2023-02-06 21:45 | MHC.EDTECH ---
patient was incontinent of urine ,care given ,linen change ,[place] cath placed per nurse ,patient sleeping in bed .
--- NOTE | 2023-02-06 21:56 | PM.IMHP ---
History of Present Illness Date of Service: 02/06/23 Attending physician on admission: Milton Katz Chief Complaint: Alcohol withdrawal Pt is a 52-year-old male with a PMH significant for?alcohol use disorder, COPD, severe emphysema, and chronic DVT on Eliquis who re-presents to the ED for evaluation of syncopal episode yesterday. Patient is somnolent and minimally arousable, but falls back asleep before answering questions during interview. HPI is thus obtained from provider and chart review. 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 Syncopal episode was unwitnessed, patient was down for an unknown amount of time. Patient does not remember incident. Patient has a long history of heavy alcohol use and admits to drinking 10+ beers daily. Was found yesterday in ED to have alcohol on breath and complained of left anterior lateral rib tenderness. Admits to a history of seizures, unclear if related to alcohol withdrawal. Labs and additional imaging were ordered but patient eloped from the ED before these were conducted. He was then brought back by ambulance this afternoon though the exact circumstances surrounding how he was found are currently unclear. In the ED patient was afebrile but tachycardic up to 121, and hypertensive up to 159/110, satting at 87% on RA. Labs were significant for H&H 13.4/36.9, sodium of 126, chloride of 90, magnesium 1.5, AST 80, alk-phos 314, albumin 3.0. Ethyl alcohol level 83 at 14:46. UA negative for UTI. CXR showed severe COPD with question of worsening pneumonia at the left lung base appears increased from previous CT of November [address]22. CT?of chest showed severe quiñones lobar pulmonary emphysema with patchy interstitial and patchy solid consolidation opacifications mostly at the lower lobes, having progressed in comparison with recent CT on 11/27/2022. Some of which are cavitary and or fluid within cysts. Results concerning for possible progression of atypical infection such as viral or mycoplasma pneumonia versus inflammatory. Also found numerous bilateral lung densities, most probably infection and or inflammatory, enlarged mediastinal and hilar lymph nodes. Also found heavy coronary calcification and hypodense liver suggesting hepatic steatosis. Recommendation is for short-term follow-up CT scan in 3 months. EKG demonstrated sinus tachycardia [address] elevations or depressions. Pt was treated with IVF, lorazepam, thiamine, and started on phenobarb protocol. Pt will be admitted to the hospital for treatment further evaluation of hypoxia in the setting of worsening pneumonia and alcohol withdrawal. Review of Systems Review of Systems: Unable to obtain due to patient's mentation [facility] Medical History Abdominal hernia Alcohol use Anxiety Bilateral leg weakness Chronic deep vein thrombosis (DVT) of left lower extremity COPD (chronic obstructive pulmonary disease) Elevated LFTs Epidermal cyst History of substance abuse Pneumonia with cavity of lung Pulmonary emphysema Smoker Varicose veins of both lower extremities Family History Father CVD (cardiovascular disease) Mother Rheumatoid arthritis Sister No problems noted. Maternal Uncle Prostate cancer Maternal Uncle Lung cancer Colon cancer Surgical History History of laparoscopic cholecystectomy (~08/19/22) Social History Household Members: Friend(s) Housing: House Housing Other:: with roomate Are you a primary healthcare technician to a significant other at home: No Do you presently have visiting nurse or other home services: No Alcohol intake: current Alcohol intake frequency: 3 or more drinks per day Alcohol type: beer Patient Tobacco Use Status: Current everyday Tobacco user Tobacco use type: Cigarette Cigarette Packs Per Day: 2 Cigarettes Per Day: 40 Years Smoked: 31 Smoked in Last 30 Days: Yes e-Cigarette/Vaping Use: Currently Using Second Hand Smoke Exposure: No Use of substances other than those prescribed or required for medical reasons: No Advance Directives: No Advance Directives Information Provided: No service: No Current occupational status: employed Current occupation: rt hand / golf course Cognitive needs: No Hearing needs: No Vision needs: Yes Meds Allergies Allergy/AdvReac Type Severity Reaction Status Date / Time Sulfa (Sulfonamide AdvReac Intermediate NAUSEA & Verified 02/05/23 19:13 Antibiotics) VOMITING [SULFA (SULFONAMIDE ANTIBIOTICS)] doxycycline AdvReac Mild Vomiting Verified 02/05/23 19:13 Active Medications: Current Medications Acetaminophen (Acetaminophen 325 Mg Tablet) 650 mg PO Q6H PRN PRN Reason: Pain, Mild (Pain Scale 1-3) Enoxaparin Sodium (Enoxaparin Sodium 40 Mg/0.4 Ml Syringe) 40 mg SUBCUT Q24H COUNTS INCLUDE 234 BEDS AT THE [facility] Last Admin: 02/06/23 21:30 Dose: 40 mg Folic Acid (Folic Acid 1 Mg Tablet) 1 mg PO DAILY COUNTS INCLUDE 234 BEDS AT THE [facility] Melatonin (Melatonin 3 Mg Tablet) 6 mg PO BEDTIME PRN PRN Reason: Insomnia Nicotine Polacrilex (Nicotine Polacrilex 2 Mg Gum) 2 mg BUCCAL Q2H PRN PRN Reason: Nicotine Cravings Ondansetron HCl (Ondansetron Hcl 4 Mg/2 Ml Vial) 4 mg IVPUSH Q8H PRN PRN Reason: Nausea and Vomiting Pharmacy Consult (Consult Rx Perform Med Rec) 1 each MISCELLANE ONCE PRN PRN Reason: Consult order Pharmacy Consult (Consult Rx Etoh Phenob Im/Po) 1 each MISCELLANE ONCE PRN; Protocol PRN Reason: Consult order Phenobarbital (Phenobarbital 15 Mg Tablet) 45 mg PO BID COUNTS INCLUDE 234 BEDS AT THE [facility]; Protocol Stop: 02/08/23 21:01 Phenobarbital (Phenobarbital 30 Mg Tablet) 30 mg PO BID COUNTS INCLUDE 234 BEDS AT THE [facility]; Protocol Stop: 02/10/23 21:01 Phenobarbital (Phenobarbital 30 Mg Tablet) 30 mg PO DAILY COUNTS INCLUDE 234 BEDS AT THE [facility]; Protocol Stop: 02/12/23 09:01 Phenobarbital Sodium (Phenobarbital Sodium 130 Mg/Ml Vial Im Q3hx2) 229 mg IM Q3H COUNTS INCLUDE 234 BEDS AT THE [facility]; Protocol Stop: 02/07/23 04:01 Sodium Chloride (0.9 % Sodium Chloride Flush 3 Ml Syringe) 3 ml IVFLUSH QSHIFT COUNTS INCLUDE 234 BEDS AT THE [facility] Thiamine HCl (Thiamine Hcl 100 Mg Tablet) 100 mg PO DAILY COUNTS INCLUDE 234 BEDS AT THE [facility] Home Medications Medication Instructions Recorded Confirmed Last Taken Type buprenorphine 8 mg-naloxone 2 mg 2 film sublingual DAILY 08/10/20 02/06/23 Unknown History sublingual film (Suboxone) multivitamin 1 tab PO DAILY 09/05/21 02/06/23 Unknown History Physical Exam Vital Signs and Narrative: Vital Signs: Last Vital Signs Temp 98.4 F 02/06/23 21:44 Pulse 121 H 02/06/23 21:44 Resp 20 02/06/23 21:44 BP 137/92 H 02/06/23 21:44 Pulse Ox 92 02/06/23 21:44 O2 Del Method Nasal Cannula 02/06/23 21:44 O2 Flow Rate 2 02/06/23 21:44 BMI result Body Mass Index 19.0 Limited due to patient's mentation General: Somnolent and minimally arousable, falls immediately back asleep without answering questions, no acute distress. Unkempt, cachectic Resp: CTA bilaterally CVS: S1, S2, tachycardic GI: +BS, NT, no distention Skin: Multiple bruises in superficial abrasions legs Neuro: Motor grossly intact bilaterally Extremities: No edema Results Labs 02/06/23 14:46 02/06/23 14:46 Labs: Laboratory Results - last 24 hr 02/06/23 02/06/23 02/06/23 14:46 14:46 14:46 MCV 91.6 MCH 33.3 H MCHC 36.3 H RDW 12.3 Plt Count 167 MPV 9.8 Immature Gran % (Auto) 0.9 H Neut % (Auto) 89.1 H Lymph % (Auto) 3.1 L Power % (Auto) 6.5 Eos % (Auto) 0.2 Baso % (Auto) 0.2 Lymph # (Auto) 0.5 L Power # (Auto) 1.1 Eos # (Auto) 0.0 Baso # (Auto) 0.0 Abs Immat Gran (auto) 0.16 H Absolute Neuts (auto) 15.5 H Absolute Nucleated RBC 0.000 Nucleated RBC % (auto) 0.0 Anion Gap 16 Estim Creat Clear Calc 155.2 Estimated GFR > 60 Random Glucose 90 Calcium 8.7 D Magnesium 1.5 L Total Bilirubin 0.6 AST 80 H ALT 38 Alkaline Phosphatase 314 H Total Protein 8.2 H Albumin 3.0 L Urine Color Urine Appearance Urine pH Ur Specific [place] Urine Protein Urine Glucose (UA) Urine Ketones Urine Blood Urine Nitrite Ur Leukocyte Esterase Ethyl Alcohol COVID-19 ([facility]) Negative COVID-19 Clin Com See Note 02/06/23 02/06/23 14:46 18:20 MCV MCH MCHC RDW Plt Count MPV Immature Gran % (Auto) Neut % (Auto) Lymph % (Auto) Power % (Auto) Eos % (Auto) Baso % (Auto) Lymph # (Auto) Power # (Auto) Eos # (Auto) Baso # (Auto) Abs Immat Gran (auto) Absolute Neuts (auto) Absolute Nucleated RBC Nucleated RBC % (auto) Anion Gap Estim Creat Clear Calc Estimated GFR Random Glucose Calcium Magnesium Total Bilirubin AST ALT Alkaline Phosphatase Total Protein Albumin Urine Color Yellow Urine Appearance Clear Urine pH 6.5 Ur Specific [place] <= 1.005 Urine Protein Negative Urine Glucose (UA) Negative Urine Ketones Negative Urine Blood Negative Urine Nitrite Negative Ur Leukocyte Esterase Negative Ethyl Alcohol 83 COVID-19 ([facility]) COVID-19 Clin Com Imaging Radiologist's Impressions: Impressions Chest X-Ray 02/06/23 14:58 IMPRESSION: Severe COPD. Question worsening pneumonia at the left lung base which appears increased from previous chest CT topogram November 2022. Chest CT 02/06/23 19:00 IMPRESSION: * Severe quiñones lobar pulmonary emphysema. * There are patchy interstitial and patchy solid consolidations opacification mostly at lower lobes, these have progressed in comparison with recent CT from 11/27/2022 some of which are cavitary and/or fluid within cysts such as the one in the left lower lobe measure up to 3.2 cm and right lower lobe measure up to 1.8 cm, not significantly changed. The process although nonspecific, concerning for possible progression of atypical infection such as viral or mycoplasma pneumonia versus inflammatory. * There are numerous bilateral lung densities, mostly probably infection and/or inflammatory, it is difficult to assess for lung nodules given the profound lung disease involved. * Enlarged mediastinal and hilar lymph nodes uncertain etiology could be reactive. * Heavy coronary calcifications. * Hypodense liver suggesting hepatic steatosis. * Recommendation: Attention to short-term follow-up CT scan in [address] 02/06/23 19:00 IMPRESSION: 1. Cerebral volume loss. 2. No acute intracranial abnormality. Assessment and Plan (1) Acute hyponatremia: Status: Acute (2) Pneumonia with cavity of lung: Status: Acute (3) Elevated LFTs: Status: Acute (4) Alcohol withdrawal: Status: Acute Plan Pt is a 52-year-old male with a PMH significant for?alcohol use disorder, COPD, severe emphysema, and chronic DVT on Eliquis who re-presents to the ED for evaluation of syncopal episode yesterday. Patient is somnolent and minimally arousable, but falls back asleep before answering questions during interview. Pt will be admitted to the hospital for treatment further evaluation of hypoxia in the setting of worsening pneumonia and alcohol withdrawal. Acute hypoxic respiratory failure in the setting of worsening cavitary pneumonia Patient satting 87% on room air, chest CT results concerning for progressive pneumonia with cavitary and or fluid within cysts Patient has been seen by both ID and pulmonology in the past Started on 3 weeks of Augmentin 01/05/2023 Will get pulmonology consult Placed on broad-spectrum antibiotics: Vanco and Zosyn, started 02/06/2023 Titrate supplemental O2 >92, wean as tolerated Acute alcohol withdrawal Patient given IVF, lorazepam, thiamine, and started on phenobarb protocol in ED Continue phenobarb protocol Daily multivitamin, folic acid, thiamine Famotidine 20 mg b.i.d. IVF CIWA scale seizure protocols Addiction Medicine consult Admitted to telemetry Syncopal episode Likely secondary to alcohol intoxication Monitor on telemetry Acute toxic metabolic encephalopathy Likely secondary to alcohol intoxication Monitor on mentation Follow labs, replenish lytes as necessary Hyponatremia Sodium 126 Likely scondary to hypovolemia Pt receiving IVF Follow BMP Hypomagnesmia Mag 1.5 Will give 2g IV Follow mag, replenish as necessary Full Code Attending:?Dr. Katz DVT Prophylaxis: Lovenox Pt will require a hospitalization of at least two nights for treatment of?acute hypoxic respiratory failure in the setting of pneumonia with IV antibiotics and treatment of acute alcohol withdrawal. Time Spent With Patient Time: Total time managing care of this patient today ____ minutes. Quality Stroke Does the patient have a stroke diagnosis?: No VTE Prior VTE?: No VTE Risk Level:: Medical - moderate - high VTE Device Contraindication: Treatment Not Indicated VTE Drug Contraindication: N/A - Med Ordered
[2023-02-06] MEDS: PHENobarbitaL sodium 130 MG/ML IM ONCE 305 MG IM (23:10)
[2023-02-06] MEDS: Piperacillin Sodium/Tazobactam 4.5 GM in 0.9 % Sodium Chloride 100 ML IV (23:10)
[2023-02-06] MEDS: vancomycin HCL 1,500 MG in 0.9 % Sodium Chloride 500 ML 333.33 MG IV (23:28)
[2023-02-06] MEDS: Magnesium Sulfate/H2O 2 GM/50 ML PIGGYBACK IV (23:45)
[2023-02-07] VITALS (9 sets, daily range): BP systolic 114–140; BP diastolic 70–96; PULSE 93–123; RESP 14–19; TEMP 36–37.7; O2SAT 94–97; BMI 19.1
--- NOTE | 2023-02-07 00:02 | MHC.EDTECH ---
0000 rounding done ,vitals sign taken ,pt sleeping comfortable in bed .
[2023-02-07 00:16] LABS: Amphetamine Screen Urine Not Detected (Not Detect); Barbiturates, Urine Not Detected (Not Detect); Benzodiazepines Screen Urine Not Detected (Not Detect); Cannabinoid Screen Urine Not Detected (Not Detect); Cocaine Screen Urine Not Detected (Not Detect); Opiate Screen Urine Not Detected (Not Detect); Phencyclidine Screen Urine Not Detected (Not Detect)
--- NOTE | 2023-02-07 00:24 | PC.NURSE ---
Pt appears to be sleeping at this time. 9 Prescribed Suboxone films found in bag, upon counting to verify amount with second nurse Tasneem, they were empty. Bottle Placed back in bag.
[2023-02-07] MEDS: PHENobarbitaL sodium 130 MG/ML VIAL IM Q3Hx2 229 MG IM ×2 (02:52→05:40)
--- NOTE | 2023-02-07 04:13 | MHC.EDTECH ---
0400 ROUNDING DONE VITALS SIGN TAKEN ,RN KADEEM IS AWARE THAT PATIENT IS TACKY ,PT SLEEPING ,WILL CONTINUE TO MONITOR .
[2023-02-07 05:25] LABS: Basophils Percent Auto 0.3 % (0-2); Hematocrit 38.5 % (42.0-52.0); Hemoglobin 13.2 g/dl (14.0-18.0); Imm Gran Pct Auto 0.7 % (0.0-0.4); Lymphocytes Absolute Auto 0.6 X10*3/uL (1.2-4.9); Lymphocytes Percent Auto 3.9 % (20-40); MANUAL DIFF FLAG NO; Mean Corpuscular HGB Conc 34.3 g/dl (31.0-36.0); Mean Corpuscular Volume 96.3 fL (80.0-98.0); Mean Platelet Volume 10.1 fL (9.4-12.4); Neutrophils Absolute Auto 12.8 x10*3/uL (2.0-8.3); Neutrophils Percent Auto 88.1 % (45-73); Platelet Count 160 X10*3/uL (160-400); Red Cell Distribution Width 12.5 % (11.0-16.0); White Blood Count 14.5 X10*3/uL (4.8-10.8)
[2023-02-07] MEDS: Piperacillin Sodium/Tazobactam 4.5 GM in 0.9 % Sodium Chloride 100 ML IV ×4 (05:29→23:45)
[2023-02-07 05:40] LABS: Anion Gap 14 (12-20); Blood Urea Nitrogen 4 mg/dL (9-16); Calcium 8.1 mg/dL (8.4-10.2); Carbon Dioxide 27 mmol/L (22-29); Chloride 98 mmol/L (96-108); Creatinine Clr Calc Pharmacy 143.7; Estimated Glomerular Filt Rate > 60; Glucose Random 82 mg/dL (60-115); Sodium 136 mmol/L (135-145)
--- NOTE | 2023-02-07 06:05 | PC.NURSE ---
Pt slept most of the night, less drowsy, awakens with verbal stimuli, A&O to self and place & situation, unclear about date, Pt reports 5/10 left side rib pain, increasing with movement, unable to lift left arm. Bruising noted to left side rib area noted, discoloration to LLL noted, Pt Incontinent of urine, dry clean linen provided.
--- NOTE | 2023-02-07 07:33 | PC.NURSE ---
assumed care of pt at 0700. pt found sleeping on stretcher in no apparent distress. rr even/unlabored. seizure precautions in place, curtain open for pt safety. call hernandez within reach. all needs met rogelio
--- NOTE | 2023-02-07 08:09 | PC.NURSE ---
pt mother called from [place] where she currently lives. given update per pt permission. left phone number. Herlinda (pt mom): [phone]
[2023-02-07] MEDS: Acetaminophen 325 MG TABLET 650 MG PO (10:04)
[2023-02-07] MEDS: PHENobarbitaL 15 MG TABLET 45 MG PO ×2 (10:05→21:30)
[2023-02-07] MEDS: Apixaban 5 MG TABLET PO ×2 (10:07→21:30)
[2023-02-07] MEDS: Hydroxychloroquine Sulfate 200 MG TABLET PO ×2 (10:07→21:30)
[2023-02-07] MEDS: Famotidine 20 MG TABLET PO ×2 (10:07→21:30)
[2023-02-07] MEDS: Folic Acid 1 MG TABLET PO (10:08)
[2023-02-07] MEDS: predniSONE 20 MG TABLET PO (10:08)
[2023-02-07] MEDS: Multivitamin TABLET 1 TAB PO (10:08)
[2023-02-07] MEDS: Thiamine HCL 100 MG TABLET PO (10:08)
[2023-02-07] MEDS: Buprenorphine/Naloxone 8/2 mg FILM 2 FILM SUBLINGUAL (10:09)
[2023-02-07] MEDS: vancomycin HCL 1,250 MG in 0.9 % Sodium Chloride 250 ML 166.67 MG IV ×2 (11:05→21:47)
--- NOTE | 2023-02-07 11:56 | PM.CNPUL ---
History of Present Illness History of Present Illness Consult date: 02/07/23 Reason for consult: dyspnea, cough, pneumonia, abnormal CXR/CT and other (CHANGE IN MENTAL STATUS ) Chief complaint: Syncope Narrative: PULMONARY CONSULT : Pt is a 52-year-old male with a PMH significant for?alcohol use disorder, chronic DVT on Eliquis who re-presents to the ED for evaluation of syncopal episode yesterday.? Patient is somnolent and minimally arousable, but falls back asleep before answering questions during interview.? HPI is thus obtained from provider and chart review.? Patient works at a [employer] and apparently first presented to the emergency room yesterday after being found by coworkers passed out on the [employer] course at around 10:30.? Syncopal episode was unwitnessed, patient was down for an unknown amount of time.? Patient is not able to described the details of the incident.. Patient has a long history of heavy alcohol abuse and admits to drinking 10+ beers daily.? Was found yesterday in ED to have alcohol on breath and complained of left anterior lateral rib tenderness.? Admits to a history of seizures, unclear if related to alcohol withdrawal.? Patient hadt eloped from the ED. and then brought back by ambulance in the afternoon though the exact circumstances surrounding how he was found are currently unclear. In the ED patient was afebrile but tachycardic up to 121, and hypertensive up to 159/110, satting at 87% on RA. Labs were significant for H&H 13.4/36.9, sodium of 126, chloride of 90, magnesium 1.5, AST 80, alk-phos 314, albumin 3.0.? Ethyl alcohol level 83 at 14:46. UA negative for UTI.? CXR showed severe COPD with question of worsening pneumonia at the left lung base appears increased from previous CT of November [address]22. CT?of chest showed severe quiñones lobar pulmonary emphysema with patchy interstitial and patchy solid consolidation opacifications mostly at the lower lobes, having progressed in comparison with recent CT on 11/27/2022.? Some of which are cavitary and or fluid within cysts.? This gentleman is being followed by E and managed for the pulmonary issues, by Dr. Joey Gilbert in our pulmonary Medicine Department. Last seen on 12/25/22 Review of Systems Review of Systems: Yes Unobtainable due to mental status COUNTS INCLUDE 234 BEDS AT THE [facility] Past Medical History Medical History AA (alcohol abuse) Abdominal hernia Alcohol use Anxiety Bilateral leg weakness Chronic deep vein thrombosis (DVT) of left lower extremity COPD (chronic obstructive pulmonary disease) Elevated LFTs Epidermal cyst History of substance abuse Pneumonia with cavity of lung Pulmonary emphysema Smoker Varicose veins of both lower extremities Family History Family History Father CVD (cardiovascular disease) Mother Rheumatoid arthritis Sister No problems noted. Maternal Uncle Prostate cancer Maternal Uncle Lung cancer Colon cancer Surgical History Surgical History History of laparoscopic cholecystectomy (~08/19/22) Social History Social History Household Members: Friend(s) Housing: House Housing Other:: with roomate Are you a primary pediatric care coordinator to a significant other at home: No Do you presently have visiting nurse or other home services: No Alcohol intake: current Alcohol intake frequency: 3 or more drinks per day Alcohol type: beer Patient Tobacco Use Status: Current everyday Tobacco user Tobacco use type: Cigarette Cigarette Packs Per Day: 2 Cigarettes Per Day: 40 Years Smoked: 31 Smoked in Last 30 Days: Yes e-Cigarette/Vaping Use: Currently Using Second Hand Smoke Exposure: No Use of substances other than those prescribed or required for medical reasons: No Advance Directives: No Advance Directives Information Provided: No service: No Current occupational status: employed Current occupation: rt hand / golf course Cognitive needs: No Hearing needs: No Vision needs: Yes Meds Allergies Allergy/AdvReac Type Severity Reaction Status Date / Time Sulfa (Sulfonamide AdvReac Intermediate NAUSEA & Verified 02/05/23 19:13 Antibiotics) VOMITING [SULFA (SULFONAMIDE ANTIBIOTICS)] doxycycline AdvReac Mild Vomiting Verified 02/05/23 19:13 Active Medications: Current Medications Acetaminophen (Acetaminophen 325 Mg Tablet) 650 mg PO Q6H PRN PRN Reason: Pain, Mild (Pain Scale 1-3) Last Admin: 02/07/23 10:04 Dose: 650 mg Albuterol Sulfate (Albuterol Sulfate 90 Mcg 8 Gm Inhaler) 2 puff INHALE Q4H PRN PRN Reason: shortness of breath or wheezin Albuterol/Ipratropium (Albuterol/Iprat 2.5/0.5mg 3 Ml Ampul.Neb) 3 ml INHALE Q6H PRN PRN Reason: wheezing Apixaban (Apixaban 5 Mg Tablet) 5 mg PO BID [facility] Last Admin: 02/07/23 10:07 Dose: 5 mg Buprenorphine/Naloxone (Buprenorphine/Naloxone 8/2 Mg Film) 2 film SUBLINGUAL DAILY [facility] Last Admin: 02/07/23 10:09 Dose: 2 film Famotidine (Famotidine 20 Mg Tablet) 20 mg PO BID [facility] Last Admin: 02/07/23 10:07 Dose: 20 mg Folic Acid (Folic Acid 1 Mg Tablet) 1 mg PO DAILY [facility] Last Admin: 02/07/23 10:08 Dose: 1 mg Hydroxychloroquine Sulfate (Hydroxychloroquine Sulfate 200 Mg Tablet) 200 mg PO BID [facility] Last Admin: 02/07/23 10:07 Dose: 200 mg Piperacillin Sod/Tazobactam (Sod 4.5 gm/ Sodium Chloride) 100 mls @ 200 mls/hr IV Q6H [facility] Last Infusion: 02/07/23 06:00 Dose: Infused Vancomycin HCl 1,250 mg/ (Sodium Chloride) 250 mls @ 166.667 mls/hr IV Q12H [facility] Last Admin: 02/07/23 11:05 Dose: 166.67 mls/hr Melatonin (Melatonin 3 Mg Tablet) 6 mg PO BEDTIME PRN PRN Reason: Insomnia Multivitamins/Vitamin C (Multivitamin Tablet) 1 tab PO DAILY [facility] Stop: 02/10/23 08:59 Last Admin: 02/07/23 10:08 Dose: 1 tab Nicotine Polacrilex (Nicotine Polacrilex 2 Mg Gum) 2 mg BUCCAL Q2H PRN PRN Reason: Nicotine Cravings Ondansetron HCl (Ondansetron Hcl 4 Mg/2 Ml Vial) 4 mg IVPUSH Q8H PRN PRN Reason: Nausea and Vomiting Pharmacy Consult (Consult Rx Perform Med Rec) 1 each MISCELLANE ONCE PRN PRN Reason: Consult order Pharmacy Consult (Consult Rx Etoh Phenob Im/Po) 1 each MISCELLANE ONCE PRN; Protocol PRN Reason: Consult order Pharmacy Consult (Consult Rx Vancomycin Dosing) 1 each MISCELLANE DAILY PRN PRN Reason: Consult order Phenobarbital (Phenobarbital 15 Mg Tablet) 45 mg PO BID [facility]; Protocol Stop: 02/08/23 21:01 Last Admin: 02/07/23 10:05 Dose: 45 mg Phenobarbital (Phenobarbital 30 Mg Tablet) 30 mg PO BID [facility]; Protocol Stop: 02/10/23 21:01 Phenobarbital (Phenobarbital 30 Mg Tablet) 30 mg PO DAILY [facility]; Protocol Stop: 02/12/23 09:01 Prednisone (Prednisone 20 Mg Tablet) 20 mg PO DAILY [facility] Last Admin: 02/07/23 10:08 Dose: 20 mg Sodium Chloride (0.9 % Sodium Chloride Flush 3 Ml Syringe) 3 ml IVFLUSH QSHIFT [facility] Last Admin: 02/07/23 07:12 Dose: Not Given Thiamine HCl (Thiamine Hcl 100 Mg Tablet) 100 mg PO DAILY [facility] Last Admin: 02/07/23 10:08 Dose: 100 mg Home Medications Medication Instructions Recorded Confirmed Last Taken Type buprenorphine 8 mg-naloxone 2 mg 2 film sublingual DAILY 08/10/20 02/06/23 Unknown History sublingual film (Suboxone) multivitamin 1 tab PO DAILY 09/05/21 02/06/23 Unknown History Physical Exam Vital Signs: Vital Signs: Last Vital Signs Temp 99.9 F 02/07/23 11:23 Pulse 122 H 02/07/23 08:53 Resp 19 02/07/23 08:53 BP 134/92 H 02/07/23 08:53 Pulse Ox 96 02/07/23 08:53 O2 Del Method Nasal Cannula 02/07/23 08:53 O2 Flow Rate 2 02/07/23 08:53 Oxygen Flow Rate 2.5 02/06/23 22:13 BMI result Body Mass Index 19.0 The patient is somnolent, not able to converse, He looks chronically sick and off a thin build, Throat none. clear and no definite infection Neck no jugular venous. Distention trachea in midline Chest/ Resp : symmetrical percussion note hyper-resonant, breath sounds are distant, no wheezes, a few inspiratory Creps over the basilar areas especially on the left base. Cardiac sounds are normal rhythm regular no murmurs Abdomen is flat and soft. Results Laboratory Findings 02/07/23 05:03 02/07/23 05:03 Abnormal lab findings: Abnormal Labs 02/06/23 02/06/23 02/07/23 14:46 14:46 05:03 WBC 17.4 H 14.5 H RBC 4.03 L 4.00 L Hgb 13.4 L 13.2 L Hct 36.9 L 38.5 L MCH 33.3 H MCHC 36.3 H Immature Gran % (Auto) 0.9 H 0.7 H Neut % (Auto) 89.1 H 88.1 H Lymph % (Auto) 3.1 L 3.9 L Lymph # (Auto) 0.5 L 0.6 L Abs Immat Gran (auto) 0.16 H 0.10 H Absolute Neuts (auto) 15.5 H 12.8 H Sodium 126 L Potassium Chloride 90 L BUN < 3 L Calcium Magnesium 1.5 L AST 80 H Alkaline Phosphatase 314 H Total Protein 8.2 H Albumin 3.0 L 02/07/23 05:03 WBC RBC Hgb Hct MCH MCHC Immature Gran % (Auto) Neut % (Auto) Lymph % (Auto) Lymph # (Auto) Abs Immat Gran (auto) Absolute Neuts (auto) Sodium Potassium 3.0 L Chloride BUN 4 L Calcium 8.1 L D Magnesium AST Alkaline Phosphatase Total Protein Albumin Diagnostic Findings Chest x-ray: report reviewed and image reviewed CT scan - chest: report reviewed and image reviewed Assessment and Plan (1) COPD (chronic obstructive pulmonary disease): Status: Acute (2) Smoker: Status: Acute (3) Deep vein thrombosis of left lower extremity: Qualifiers: Affected thrombotic vein of extremity: unspecified vein of extremity Chronicity: acute Qualified Code(s): I82.402 - Acute embolism and thrombosis of unspecified deep veins of left lower extremity Status: Acute (4) Bilateral pneumonia: Qualifiers: Lung location: lower lobe of lung Pneumonia type: due to unspecified organism Qualified Code(s): J18.9 - Pneumonia, unspecified organism Status: Acute (5) Abscess of lung: Status: Acute (6) Lung abscess: Qualifiers: Pulmonary abscess pneumonia presence: without pneumonia Laterality: unspecified laterality Qualified Code(s): J85.2 - Abscess of lung without pneumonia Status: Acute (7) AA (alcohol abuse): Status: Acute Plan This gentleman has advanced chronic obstructive pulmonary disease, with the ongoing smoking. 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 This seems to be secondary to recurrent pulmonary aspirations, related to alcohol abuse. His main and primary problem is that of ongoing alcohol abuse, with frequent changes in mental status, making him prone to frequent pulmonary aspirations . He may also have chronic TOM infestation of the lungs. Recc: I agree with the current treatment. For antibiotic coverage keep him on IV Zosyn and vancomycin for the 1st few days, then a blood cultures are negative , we can stop IV vancomycin . Transition him to Augmentin p.o., which needs to be continued for several weeks. Repeat CT scan of the chest after a short interval. DuElenib updrafts Q 6 hours while awake and p.r.n., O2 supplementation to keep O2 sat above 90%, Patient should be counseled to quit smoking, which may be difficult. Prognosis depends upon effective management of his substance( Alcohal ) abuse and smoking. He needs ongoing very close supervision by family, friends and director of social work. Thank you for asking me to see this gentleman. Time Spent With Patient Time: Total time managing care of this patient today ____ minutes. Procedures Date of Service Date of Service: 02/07/23
--- NOTE | 2023-02-07 12:00 | HO.PM.IMPN ---
Subjective Subjective Date of Service: 02/07/23 Interval History: Patient seen and examined at bedside, somnolent, arousable to loud verbal command, denies any chest pain, patient was noted to be tachycardic this morning on telemetry Unable to obtain much review of system otherwise Physical Exam Vital Signs: Vital Signs: Last Vital Signs Temp 99.9 F 02/07/23 11:23 Pulse 122 H 02/07/23 08:53 Resp 19 02/07/23 08:53 BP 134/92 H 02/07/23 08:53 Pulse Ox 96 02/07/23 08:53 O2 Del Method Nasal Cannula 02/07/23 08:53 O2 Flow Rate 2 02/07/23 08:53 Oxygen Flow Rate 2.5 02/06/23 22:13 BMI result Body Mass Index 19.0 Const: Other: Somnolent but arousable unable to obtain orientation Resp: Other: Unable to conduct appropriate exam but anterior lung exam shows scattered rhonchi Cardio: Other: Regular rate and rhythm GI: Other: Abdomen is soft, nontender Objective Data Active Medications Acetaminophen (Acetaminophen 325 Mg Tablet) 650 mg PO Q6H PRN PRN Reason: Pain, Mild (Pain Scale 1-3) Last Admin: 02/07/23 10:04 Dose: 650 mg Documented By: PASCUAL Albuterol Sulfate (Albuterol Sulfate 90 Mcg 8 Gm Inhaler) 2 puff INHALE Q4H PRN PRN Reason: shortness of breath or wheezin Albuterol/Ipratropium (Albuterol/Iprat 2.5/0.5mg 3 Ml Ampul.Neb) 3 ml INHALE Q6H PRN PRN Reason: wheezing Apixaban (Apixaban 5 Mg Tablet) 5 mg PO BID [facility] Last Admin: 02/07/23 10:07 Dose: 5 mg Documented By: PASCUAL Buprenorphine/Naloxone (Buprenorphine/Naloxone 8/2 Mg Film) 2 film SUBLINGUAL DAILY [facility] Last Admin: 02/07/23 10:09 Dose: 2 film Documented By: PASCUAL Famotidine (Famotidine 20 Mg Tablet) 20 mg PO BID [facility] Last Admin: 02/07/23 10:07 Dose: 20 mg Documented By: PASCUAL Folic Acid (Folic Acid 1 Mg Tablet) 1 mg PO DAILY [facility] Last Admin: 02/07/23 10:08 Dose: 1 mg Documented By: PASCUAL Hydroxychloroquine Sulfate (Hydroxychloroquine Sulfate 200 Mg Tablet) 200 mg PO BID [facility] Last Admin: 02/07/23 10:07 Dose: 200 mg Documented By: PASCUAL Piperacillin Sod/Tazobactam (Sod 4.5 gm/ Sodium Chloride) 100 mls @ 200 mls/hr IV Q6H [facility] Last Infusion: 02/07/23 06:00 Dose: 0 mls/hr Documented By: PORSHA Vancomycin HCl 1,250 mg/ (Sodium Chloride) 250 mls @ 166.667 mls/hr IV Q12H [facility] Last Admin: 02/07/23 11:05 Dose: 166.67 mls/hr Documented By: PASCUAL Melatonin (Melatonin 3 Mg Tablet) 6 mg PO BEDTIME PRN PRN Reason: Insomnia Multivitamins/Vitamin C (Multivitamin Tablet) 1 tab PO DAILY [facility] Stop: 02/10/23 08:59 Last Admin: 02/07/23 10:08 Dose: 1 tab Documented By: PASCUAL Nicotine Polacrilex (Nicotine Polacrilex 2 Mg Gum) 2 mg BUCCAL Q2H PRN PRN Reason: Nicotine Cravings Ondansetron HCl (Ondansetron Hcl 4 Mg/2 Ml Vial) 4 mg IVPUSH Q8H PRN PRN Reason: Nausea and Vomiting Pharmacy Consult (Consult Rx Perform Med Rec) 1 each MISCELLANE ONCE PRN PRN Reason: Consult order Pharmacy Consult (Consult Rx Etoh Phenob Im/Po) 1 each MISCELLANE ONCE PRN; Protocol PRN Reason: Consult order Pharmacy Consult (Consult Rx Vancomycin Dosing) 1 each MISCELLANE DAILY PRN PRN Reason: Consult order Phenobarbital (Phenobarbital 15 Mg Tablet) 45 mg PO BID [facility]; Protocol Stop: 02/08/23 21:01 Last Admin: 02/07/23 10:05 Dose: 45 mg Documented By: PASCUAL Phenobarbital (Phenobarbital 30 Mg Tablet) 30 mg PO BID [facility]; Protocol Stop: 02/10/23 21:01 Phenobarbital (Phenobarbital 30 Mg Tablet) 30 mg PO DAILY [facility]; Protocol Stop: 02/12/23 09:01 Prednisone (Prednisone 20 Mg Tablet) 20 mg PO DAILY [facility] Last Admin: 02/07/23 10:08 Dose: 20 mg Documented By: PASCUAL Sodium Chloride (0.9 % Sodium Chloride Flush 3 Ml Syringe) 3 ml IVFLUSH QSHIFT [facility] Last Admin: 02/07/23 07:12 Dose: Not Given Documented By: PASCUAL Non-Admin Reason: Med Not Available Thiamine HCl (Thiamine Hcl 100 Mg Tablet) 100 mg PO DAILY [facility] Last Admin: 02/07/23 10:08 Dose: 100 mg Documented By: PASCUAL Labs 02/07/23 05:03 02/07/23 05:03 Labs: Laboratory Results - last 24 hr 02/06/23 02/06/23 02/06/23 14:46 14:46 14:46 MCV 91.6 MCH 33.3 H MCHC 36.3 H RDW 12.3 Plt Count 167 MPV 9.8 Immature Gran % (Auto) 0.9 H Neut % (Auto) 89.1 H Lymph % (Auto) 3.1 L Miller % (Auto) 6.5 Eos % (Auto) 0.2 Baso % (Auto) 0.2 Lymph # (Auto) 0.5 L Miller # (Auto) 1.1 Eos # (Auto) 0.0 Baso # (Auto) 0.0 Abs Immat Gran (auto) 0.16 H Absolute Neuts (auto) 15.5 H Absolute Nucleated RBC 0.000 Nucleated RBC % (auto) 0.0 Anion Gap 16 Estim Creat Clear Calc 155.2 Estimated GFR > 60 Random Glucose 90 Calcium 8.7 D Magnesium 1.5 L Total Bilirubin 0.6 AST 80 H ALT 38 Alkaline Phosphatase 314 H Total Protein 8.2 H Albumin 3.0 L Urine Color Urine Appearance Urine pH Ur Specific Anza Urine Protein Urine Glucose (UA) Urine Ketones Urine Blood Urine Nitrite Ur Leukocyte Esterase Urine Opiates Screen Urine Fentanyl Screen Ur Barbiturates Screen Ur Phencyclidine Scrn Ur Amphetamines Screen U Benzodiazepines Scrn Urine Cocaine Screen U Marijuana (THC) Screen Ethyl Alcohol COVID-19 (QUINTIN) Negative COVID-19 Clin Com See Note 02/06/23 02/06/23 02/06/23 14:46 18:20 18:20 MCV MCH MCHC RDW Plt Count MPV Immature Gran % (Auto) Neut % (Auto) Lymph % (Auto) Miller % (Auto) Eos % (Auto) Baso % (Auto) Lymph # (Auto) Miller # (Auto) Eos # (Auto) Baso # (Auto) Abs Immat Gran (auto) Absolute Neuts (auto) Absolute Nucleated RBC Nucleated RBC % (auto) Anion Gap Estim Creat Clear Calc Estimated GFR Random Glucose Calcium Magnesium Total Bilirubin AST ALT Alkaline Phosphatase Total Protein Albumin Urine Color Yellow Urine Appearance Clear Urine pH 6.5 Ur Specific Anza <= 1.005 Urine Protein Negative Urine Glucose (UA) Negative Urine Ketones Negative Urine Blood Negative Urine Nitrite Negative Ur Leukocyte Esterase Negative Urine Opiates Screen Not Detected Urine Fentanyl Screen Not Detected Ur Barbiturates Screen Not Detected Ur Phencyclidine Scrn Not Detected Ur Amphetamines Screen Not Detected U Benzodiazepines Scrn Not Detected Urine Cocaine Screen Not Detected U Marijuana (THC) Screen Not Detected Ethyl Alcohol 83 COVID-19 (QUINTIN) COVID-19 Stick and Play 02/07/23 02/07/23 05:03 05:03 MCV 96.3 MCH 33.0 MCHC 34.3 RDW 12.5 Plt Count 160 MPV 10.1 Immature Gran % (Auto) 0.7 H Neut % (Auto) 88.1 H Lymph % (Auto) 3.9 L Miller % (Auto) 7.0 Eos % (Auto) 0.0 Baso % (Auto) 0.3 Lymph # (Auto) 0.6 L Miller # (Auto) 1.0 Eos # (Auto) 0.0 Baso # (Auto) 0.0 Abs Immat Gran (auto) 0.10 H Absolute Neuts (auto) 12.8 H Absolute Nucleated RBC 0.000 Nucleated RBC % (auto) 0.0 Anion Gap 14 Estim Creat Clear Calc 143.7 Estimated GFR > 60 Random Glucose 82 Calcium 8.1 L D Magnesium Total Bilirubin AST ALT Alkaline Phosphatase Total Protein Albumin Urine Color Urine Appearance Urine pH Ur Specific Anza Urine Protein Urine Glucose (UA) Urine Ketones Urine Blood Urine Nitrite Ur Leukocyte Esterase Urine Opiates Screen Urine Fentanyl Screen Ur Barbiturates Screen Ur Phencyclidine Scrn Ur Amphetamines Screen U Benzodiazepines Scrn Urine Cocaine Screen U Marijuana (THC) Screen Ethyl Alcohol COVID-19 (QUINTIN) COVID-19 DEUS Com Assessment and Plan (1) Alcohol abuse with withdrawal: Status: Acute (2) Chest wall contusion: Status: Acute (3) Pneumonia with cavity of lung: Status: Acute (4) Acute hyponatremia: Status: Acute Plan Pt is a 52-year-old male with a PMH significant for?alcohol use disorder, COPD, severe emphysema, and chronic DVT on Eliquis who re-presents to the ED for evaluation of syncopal episode yesterday.? Patient remains somnolent. Pt will be admitted to the hospital for treatment further evaluation of hypoxia in the setting of worsening pneumonia and alcohol withdrawal. # Acute hypoxic respiratory failure in the setting of worsening cavitary pneumonia - Pt started on broad spectrum abx - chest CT results concerning for progressive pneumonia with cavitary and or fluid within cysts - low concern for Tb at this time- tested in August- negative - will consult ID and pulmonolgy, input appreciated Titrate supplemental O2 >92, wean as tolerated # acute metabolic encephalopathy - possibly 2/2 sepsis, acute infection - Head CT negative - monitor mentation, if not improved, will obtain MRI in am # Cavitory PNA - Broad spectrum abx - ID consult - Sputum culture, resp pathogen panel pending - Blood cultures # Acute alcohol withdrawal - On pehnobarb protocol - Thiamine and folic acid supplemnt - addiction med consult # Syncopal episode - Likely secondary to alcohol intoxication - Monitor on telemetry #Hyponatremia - Sodium 126 - resolved # hypomag - repleted - mag in am Full Code DVT Prophylaxis: Lovenox Pt will req minimum 2 nights inpatient hospital stay for IV abx and phenobarb as well as unresolved acute encephalopathy Time Spent With Patient Time: Total time managing care of this patient today ____ minutes. Quality Stroke Does the patient have a stroke diagnosis?: No VTE Prior VTE?: No VTE Risk Level:: Medical - moderate - high VTE Device Contraindication: Treatment Not Indicated VTE Drug Contraindication: N/A - Med Ordered
[2023-02-07 12:35] LABS: ABG Base Excess 4.8 mmol/L; ABG HCO3 27 mmol/L (22-26); ABG pCO2 33 mmHg (32-45); ABG pH 7.52 (7.35-7.45); ABG pO2 83 mmHg (83-108)
[2023-02-07 12:35] LABS: Lactic Acid 0.9 mmol/L (0.5-2.0)
--- NOTE | 2023-02-07 12:49 | MHC.CM.PN ---
This CM attempted to meet with pt, he is somnolent, minimally responsive, and unable to partake in CM assessment at this time. CM will continue to follow and attempt to meet with pt when appropriate and pt able to.
[2023-02-07 12:56] LABS: ABG Refer to POC result
--- NOTE | 2023-02-07 14:27 | PC.NURSE ---
pt still sleeping on stretcher. in no apparent distress. rr even/unlabored. seizure precautions in place. wctm
--- NOTE | 2023-02-07 15:19 | PC.NURSE ---
pt girlfriend called and left number: [phone]
[2023-02-07] MEDS: Lactated Ringers 1,000 ML 80 ML IVCONT (18:01)
[2023-02-07 18:04] LABS: Alanine Aminotransferase 26 U/L (0-40); Albumin Level 2.6 g/dL (3.5-5.0); Alkaline Phosphatase 245 U/L (39-117); Aspartate Amino Transferase 43 U/L (5-37); Bilirubin Direct 0.5 mg/dL (0.0-0.5); Bilirubin Total 0.9 mg/dL (0.0-1.0); Total Protein 7.3 g/dL (6.5-8.0)
[2023-02-07] MEDS: Lidocaine 4 % Patch ADH..PATCH 1 PATCH TRANSDERMA (19:14)
[2023-02-07] MEDS: 0.9 % Sodium Chloride Flush 3 ML SYRINGE IVFLUSH (21:30)
[2023-02-08] MEDS: Piperacillin Sodium/Tazobactam 4.5 GM in 0.9 % Sodium Chloride 100 ML IV ×2 (05:11→11:10)
[2023-02-08] MEDS: Lactated Ringers 1,000 ML 80 ML IVCONT ×2 (05:39→18:38)
--- NOTE | 2023-02-08 07:35 | HO.PM.IMPN ---
Subjective Subjective Date of Service: 02/08/23 Interval History: pt seen and examined at bedside. more awake, alert, talking, denies any chest pain but has pain in his shoulder. no abd pain, no n/v, no diarrhea. No overnight events Review of Systems Review of Systems: Yes all other systems are reviewed and are negative Physical Exam Vital Signs: Vital Signs: Last Vital Signs Temp 96.8 F 02/07/23 23:36 Pulse 93 02/07/23 23:36 Resp 14 02/07/23 23:36 BP 114/70 02/07/23 23:36 Pulse Ox 96 02/07/23 23:36 O2 Del Method Nasal Cannula 02/07/23 23:36 O2 Flow Rate 2 02/07/23 23:36 Oxygen Flow Rate 2.5 02/06/23 22:13 BMI result Body Mass Index 19.1 Const: Other: alert, oriented x3 Resp: Other: Bilateral crackles GI: Other: Abdomen is soft, nontender Skin: Other: Has some contusions on upper chest Neuro: Other: No neurological deficits Extrem: Other: No lower extremity edema Objective Data Active Medications Acetaminophen (Acetaminophen 325 Mg Tablet) 650 mg PO Q6H PRN PRN Reason: Pain, Mild (Pain Scale 1-3) Last Admin: 02/07/23 10:04 Dose: 650 mg Documented By: PASCUAL Albuterol Sulfate (Albuterol Sulfate 90 Mcg 8 Gm Inhaler) 2 puff INHALE Q4H PRN PRN Reason: shortness of breath or wheezin Albuterol/Ipratropium (Albuterol/Iprat 2.5/0.5mg 3 Ml Ampul.Neb) 3 ml INHALE Q6H PRN PRN Reason: wheezing Apixaban (Apixaban 5 Mg Tablet) 5 mg PO BID [facility] Last Admin: 02/07/23 21:30 Dose: 5 mg Documented By: GALILEA Buprenorphine/Naloxone (Buprenorphine/Naloxone 8/2 Mg Film) 2 film SUBLINGUAL DAILY [facility] Last Admin: 02/07/23 10:09 Dose: 2 film Documented By: PASCUAL Famotidine (Famotidine 20 Mg Tablet) 20 mg PO BID [facility] Last Admin: 02/07/23 21:30 Dose: 20 mg Documented By: GALILEA Folic Acid (Folic Acid 1 Mg Tablet) 1 mg PO DAILY [facility] Last Admin: 02/07/23 10:08 Dose: 1 mg Documented By: PASCUAL Hydroxychloroquine Sulfate (Hydroxychloroquine Sulfate 200 Mg Tablet) 200 mg PO BID [facility] Last Admin: 02/07/23 21:30 Dose: 200 mg Documented By: GALILEA Piperacillin Sod/Tazobactam (Sod 4.5 gm/ Sodium Chloride) 100 mls @ 200 mls/hr IV Q6H [facility] Last Infusion: 02/08/23 05:41 Dose: 0 mls/hr Documented By: GALILEA Vancomycin HCl 1,250 mg/ (Sodium Chloride) 250 mls @ 166.667 mls/hr IV Q12H [facility] Last Infusion: 02/07/23 23:30 Dose: 0 mls/hr Documented By: GALILEA Lactated Ringer's (Lr) 1,000 mls @ 80 mls/hr IVCONT .[id number] [facility] Last Admin: 02/08/23 05:39 Dose: 80 mls/hr Documented By: GALILEA Lidocaine (Lidocaine 4 % Patch Adh..Patch) 1 patch TRANSDERMA DAILY [facility]; Protocol Last Admin: 02/07/23 19:14 Dose: 1 patch Documented By: PASCUAL Melatonin (Melatonin 3 Mg Tablet) 6 mg PO BEDTIME PRN PRN Reason: Insomnia Multivitamins/Vitamin C (Multivitamin Tablet) 1 tab PO DAILY [facility] Stop: 02/10/23 08:59 Last Admin: 02/07/23 10:08 Dose: 1 tab Documented By: PASCUAL Nicotine Polacrilex (Nicotine Polacrilex 2 Mg Gum) 2 mg BUCCAL Q2H PRN PRN Reason: Nicotine Cravings Ondansetron HCl (Ondansetron Hcl 4 Mg/2 Ml Vial) 4 mg IVPUSH Q8H PRN PRN Reason: Nausea and Vomiting Pharmacy Consult (Consult Rx Perform Med Rec) 1 each MISCELLANE ONCE PRN PRN Reason: Consult order Pharmacy Consult (Consult Rx Etoh Phenob Im/Po) 1 each MISCELLANE ONCE PRN; Protocol PRN Reason: Consult order Pharmacy Consult (Consult Rx Vancomycin Dosing) 1 each MISCELLANE DAILY PRN PRN Reason: Consult order Phenobarbital (Phenobarbital 15 Mg Tablet) 45 mg PO BID [facility]; Protocol Stop: 02/08/23 21:01 Last Admin: 02/07/23 21:30 Dose: 45 mg Documented By: GALILEA Phenobarbital (Phenobarbital 30 Mg Tablet) 30 mg PO BID [facility]; Protocol Stop: 02/10/23 21:01 Phenobarbital (Phenobarbital 30 Mg Tablet) 30 mg PO DAILY [facility]; Protocol Stop: 02/12/23 09:01 Prednisone (Prednisone 20 Mg Tablet) 20 mg PO DAILY [facility] Last Admin: 02/07/23 10:08 Dose: 20 mg Documented By: PASCUAL Sodium Chloride (0.9 % Sodium Chloride Flush 3 Ml Syringe) 3 ml IVFLUSH QSHIFT [facility] Last Admin: 02/07/23 21:30 Dose: 3 ml Documented By: GALILEA Thiamine HCl (Thiamine Hcl 100 Mg Tablet) 100 mg PO DAILY [facility] Last Admin: 02/07/23 10:08 Dose: 100 mg Documented By: PASCUAL Labs 02/07/23 05:03 02/07/23 05:03 Labs: Laboratory Results - last 24 hr 02/07/23 02/07/23 02/07/23 12:17 12:30 17:45 O2 Saturation 96.0 ABG pH at Pt Temp 7.52 H ABG pCO2 at Pt Temp 33 ABG pO2 at Pt Temp 83 ABG HCO3 27 H ABG Base Excess (Actual) 4.8 Lactic Acid 0.9 Total Bilirubin 0.9 Direct Bilirubin 0.5 AST 43 H ALT 26 Alkaline Phosphatase 245 H Total Protein 7.3 Albumin 2.6 L Microbiology Microbiology Results: Microbiology 02/06/23 23:12 Blood Culture - Preliminary Blood - Venous No growth after 24 hours. 02/06/23 23:12 Blood Culture - Preliminary Blood - Venous No growth after 24 hours. Assessment and Plan (1) Alcohol abuse with withdrawal: Status: Acute (2) Chest wall contusion: Status: Acute (3) Acute hyponatremia: Status: Acute (4) Pneumonia with cavity of lung: Status: Acute (5) Chronic deep vein thrombosis (DVT) of left lower extremity: Status: Acute Plan Pt is a 52-year-old male with a PMH significant for?alcohol use disorder, COPD, severe emphysema, and chronic DVT on Eliquis who re-presents to the ED for evaluation of syncopal episode yesterday.? Patient remains somnolent. Pt will be admitted to the hospital for treatment further evaluation of hypoxia in the setting of worsening pneumonia and alcohol withdrawal. # Acute hypoxic respiratory failure in the setting of worsening cavitary pneumonia - Pt started on broad spectrum abx - chest CT results concerning for progressive pneumonia with cavitary and or fluid within cysts - low concern for Tb at this time- tested in August- negative - will consult ID and pulmonolgy, input appreciated Titrate supplemental O2 >92, wean as tolerated # Cavitory PNA - Broad spectrum abx - ID consult - Sputum culture, resp pathogen panel pending - Blood cultures # acute metabolic encephalopathy - resolved - possibly 2/2 sepsis, acute infection - Head CT negative # Acute alcohol withdrawal - On pehnobarb protocol - Thiamine and folic acid supplemnt - addiction med consult # Syncopal episode - Likely secondary to alcohol intoxication - Monitor on telemetry #Hyponatremia - Sodium 126 - resolved # hypomag - repleted - mag in am Full Code DVT Prophylaxis: Lovenox Pt will req minimum 2 nights inpatient hospital stay for IV abx and phenobarb Time Spent With Patient Time: Total time managing care of this patient today ____ minutes. Quality Stroke Does the patient have a stroke diagnosis?: No VTE Prior VTE?: No VTE Risk Level:: Medical - moderate - high VTE Device Contraindication: Treatment Not Indicated VTE Drug Contraindication: N/A - Med Ordered
[2023-02-08 07:43] VITALS: BP 124/74; PULSE 85; RESP 18; TEMP 36.8; O2SAT 94
[2023-02-08 08:09] LABS: MANUAL DIFF FLAG NO
[2023-02-08 08:12] LABS: Basophils Absolute Auto 0.1 X10*3/uL (0.0-0.2); Basophils Percent Auto 0.4 % (0-2); Eosinophils Absolute Auto 0.1 X10*3/uL (0.0-0.4); Eosinophils Percent Auto 0.5 % (0-4); Hematocrit 33.8 % (42.0-52.0); Hemoglobin 11.5 g/dl (14.0-18.0); Imm Gran Abs Auto 0.08 X10*3/uL (0.00-0.03); Imm Gran Pct Auto 0.6 % (0.0-0.4); Lymphocytes Absolute Auto 0.6 X10*3/uL (1.2-4.9); Lymphocytes Percent Auto 4.4 % (20-40); Mean Corpuscular Hemoglobin 32.4 pg (27.0-33.0); Mean Corpuscular Volume 95.2 fL (80.0-98.0); Mean Platelet Volume 10.3 fL (9.4-12.4); Monocytes Percent Auto 7.2 % (2-11); Neutrophils Absolute Auto 11.4 x10*3/uL (2.0-8.3); Neutrophils Percent Auto 86.9 % (45-73); Platelet Count 161 X10*3/uL (160-400); Red Blood Count 3.55 X10*6/uL (4.60-5.80); Red Cell Distribution Width 12.3 % (11.0-16.0); White Blood Count 13.1 X10*3/uL (4.8-10.8)
[2023-02-08 08:27] LABS: Vancomycin Trough 20.7 mcg/mL (10.0-20.0)
[2023-02-08 08:30] LABS: Alanine Aminotransferase 18 U/L (0-40); Albumin Level 2.1 g/dL (3.5-5.0); Alkaline Phosphatase 176 U/L (39-117); Anion Gap 11 (12-20); Aspartate Amino Transferase 33 U/L (5-37); Bilirubin Direct 0.4 mg/dL (0.0-0.5); Bilirubin Total 0.7 mg/dL (0.0-1.0); Blood Urea Nitrogen 8 mg/dL (9-16); Carbon Dioxide 28 mmol/L (22-29); Chloride 96 mmol/L (96-108); Creatinine Clr Calc Pharmacy 91.7; Estimated Glomerular Filt Rate > 60; Glucose Random 93 mg/dL (60-115); Magnesium 1.7 mg/dL (1.6-2.6); Potassium 2.9 mmol/L (3.3-5.1); Sodium 132 mmol/L (135-145); Total Protein 5.9 g/dL (6.5-8.0)
[2023-02-08 08:31] LABS: Anion Gap 9 (12-20); Blood Urea Nitrogen 9 mg/dL (9-16); Carbon Dioxide 29 mmol/L (22-29); Chloride 96 mmol/L (96-108); Estimated Glomerular Filt Rate > 60; Glucose Random 93 mg/dL (60-115); Magnesium 1.6 mg/dL (1.6-2.6); Potassium 2.8 mmol/L (3.3-5.1); Sodium 131 mmol/L (135-145)
[2023-02-08] MEDS: Lidocaine 4 % Patch ADH..PATCH 1 PATCH TRANSDERMA (08:55)
[2023-02-08] MEDS: PHENobarbitaL 15 MG TABLET 45 MG PO (08:57)
[2023-02-08] MEDS: Hydroxychloroquine Sulfate 200 MG TABLET PO (08:57)
[2023-02-08] MEDS: Multivitamin TABLET 1 TAB PO (08:57)
[2023-02-08] MEDS: Folic Acid 1 MG TABLET PO (08:57)
[2023-02-08] MEDS: Buprenorphine/Naloxone 8/2 mg FILM 2 FILM SUBLINGUAL (08:57)
[2023-02-08] MEDS: Famotidine 20 MG TABLET PO (08:58)
[2023-02-08] MEDS: Apixaban 5 MG TABLET PO (08:58)
[2023-02-08] MEDS: predniSONE 20 MG TABLET PO (08:58)
[2023-02-08] MEDS: 0.9 % Sodium Chloride Flush 3 ML SYRINGE IVFLUSH (08:58)
[2023-02-08] MEDS: Thiamine HCL 100 MG TABLET PO (08:58)
--- NOTE | 2023-02-08 08:58 | MHC.CM.PN ---
CM met with pt in room, pt with eyes closed but somewhat responsive. Pt states he is not up for talking. This CM asked if it was ok to contact his girlfriend to get some more information, and pt stated no. CM will attempt to meet with pt again when pt more alert and willing to engage.
[2023-02-08 09:39] LABS: Adenovirus PCR Not Detected (Not Detect.); Bordetella parapertussis PCR Not Detected (Not Detect.); Bordetella pertussis PCR Not Detected (Not Detect.); Chlamydia pneumoniae PCR Not Detected (Not Detect.); Coronavirus 229E PCR Not Detected (Not Detect.); Coronavirus HKU1 PCR Not Detected (Not Detect.); Coronavirus NL63 PCR Not Detected (Not Detect.); Coronavirus OC43 PCR Not Detected (Not Detect.); Human metapneumovirus PCR Not Detected (Not Detect.); Influenza A PCR Not Detected (Not Detect.); Influenza B PCR Not Detected (Not Detect.); Mycoplasma pneumoniae PCR Not Detected (Not Detect.); Parainfluenza 1 PCR Not Detected (Not Detect.); Parainfluenza 2 PCR Not Detected (Not Detect.); Parainfluenza 3 PCR Not Detected (Not Detect.); Parainfluenza 4 PCR Not Detected (Not Detect.); RSV PCR Not Detected (Not Detect.); Rhino/Enterovirus PCR Not Detected (Not Detect.); SARS-CoV-2 PCR Not Detected (Not Detect.)
[2023-02-08 11:43] VITALS: BP 134/79; PULSE 86; RESP 18; TEMP 36.7; O2SAT 92
[2023-02-08 12:53] LABS: Fentanyl, urine SEE COMMENTS (Not Detect)
[2023-02-08] MEDS: Nicotine Polacrilex 2 MG GUM BUCCAL (14:00)
--- NOTE | 2023-02-08 14:49 | MHC.CM.PN ---
Pt admitted with syncope and ETOH withdrawal. Pt reports living at a friends house, and states he is independent/self-care. D/C plan to return to living with friend self-care. Pts friend to transport. No HCP, declined at this time. PCP: Lizandro Castillo vax: x 2 chaveza
[2023-02-08 15:19] VITALS: BP 119/73; PULSE 79; RESP 15; TEMP 36.6; O2SAT 91
--- NOTE | 2023-02-08 15:59 | PC.NURSE ---
patient seen on camera using vape device in room while visitor was there. security was called to confiscate device, but patient said he had given it back to his brother to take home. According to patient's father, the patient had also asked him to bring in a vape device but he refused. notified. Patient also refusing to keep nasal cannula in place, so he is currently on room air with an o2 sat of 94%. Will continue to monitor situation
--- NOTE | 2023-02-08 17:44 | PM.EVENT ---
Event Note Date of Service: 02/08/23 Event Note: call by nurse that patient of wishes to leave against medical advise spoke with patient he wanted to leave hospital for smoking, explained to patient that he is not medically clear for discharge due to bilateral cavitary lesions on IV antibiotic waiting for blood cultures and ID consult and also with unsteady gait , alcohol abuse on phenobarb, patient was initially adamant to leave therefore spoke with patient's brother Jack at [phone] , regarding patient's clinical condition he agreed to come and talk to patient offered patient nicotine patch and higher dose of Nicorette gums. Time Spent With Patient Time: Total time managing care of this patient today ____ minutes.
--- NOTE | 2023-02-08 17:46 | PC.NURSE ---
pt was refusing care and was drake ton leaving AMA. Dr. jacobsen educated patient on the risks of doing so, but the patient called his brother to pick him up. The family member was educated by the MD on the severity of the patient's condition and the brother spoke with the patient advising him to stay. Patient is now more agreeable to care and no longer wishes to leave AMA.
[2023-02-08] MEDS: Nicotine 21 MG PATCH.TD24 TRANSDERMA (17:57)
--- NOTE | 2023-02-08 19:57 | PC.NURSE ---
Addendum entered by Herlinda De La Cruz RN 02/09/23 01:19: Correction in name of provider: provider involved was YU Pizano. Original Note: 1899: Pt. found with bottle of suboxone at his bedside. Security at bedside when suboxone and backpack removed from patient room and pt. informed of hospital policy. Pt. became upset afterwards and by 1929 pt. taking off personnel monitor and stating he is leaving AMA. Dr. Paula in to speak with pt. and pt. continues to insist on leaving AMA. RFA and Left arm IV's removed intact. Pt. in wheelchair and left unit with staff.
--- NOTE | 2023-02-08 20:10 | PM.EVENT ---
Event Note Date of Service: 02/08/23 Event Note: RN called reporting the patient again wishes to leave AMA. Per RN printing worker supervisor the patient was fishing around in his bag after being found to be vaping and with cigarettes in his room earlier. He had also been covering the camera that had been placed in his room. Security was called and there was suboxone tabs found in his bag. His bag was taken by security to be held. This greatly upset the patient and made him again decide to leave against medical advice despite being advised earlier by my colleague and his brother to stay. The patient is A&O x 4. He verbalizes that he understands that he should not leave and that he still does not feel well. He is still very unsteady on his feet and is ambulated with two person assist. He does not use or have any assistive devices at home. He is unable to tell me how his friend who will pick him up will get him from a wheelchair into his home. The patient is advised that he has cavitary lesions in his lungs that require broad spectum IV antibiotics at this time and that infectious disease consult and blood cultures remain pending. He is aware that any oral antibiotic therapy prescribed may not effectively treat his illness. He expresses understanding and signs AMA form also witnessed by nursing printing worker supervisor. His brother arrived to the unit and was also unable to sway his decision. I have send rx for levaquin and clindamycin to his pharmacy and he is advised to take exactly as prescribed without missing doses. Advised to return to the ED should his symptoms worsen or if he develops fever. Advised to abstain from alcohol, folic acid and thiamine are prescribed, and smoking cessation is strongly advised. Time Spent With Patient Time: Total time managing care of this patient today ____ minutes.
[2023-02-09 03:29] LABS: HIV Num 1 4.37 S/CO (0.00-0.99)
[2023-02-09 04:24] LABS: HIV AB/AG Nonreactive (Nonreactive); HIV Num 2 0.09 S/CO; HIV Num 3 0.09 S/CO
--- NOTE | 2023-02-09 19:34 | PM.DS ---
DS: Providers Provider Date of Service: 02/08/23 Date of admission: 02/06/23 22:25 Primary care physician: Lizandro eTran MD Consults: 02/06/23 21:17 Addiction Medicine Routine Consulting Provider: Addiction Covering Reason for consultation: alcohol use disorder Consult to Care Team Routine Comment: Reason for consultation: alcohol use disorder 02/06/23 22:13 Consult to Pulmonology [place]ine [place]ing [place] [facility] Reason for consultation: cavitary lung lesions 02/07/23 17:28 Consult to Infectious Diseases Routine Consulting Provider[place] [facility] Reason for consultation: worseiong cavitory pna Has provider been notified: No DS: Diagnosis Discharge Diagnosis (1) Alcohol abuse with withdrawal: Status: Acute (2) Chest wall contusion: Status: Acute (3) Acute hyponatremia: Status: Acute (4) Pneumonia with cavity of lung: Status: Acute (5) Chronic deep vein thrombosis (DVT) of left lower extremity: Status: Acute DS: Summary Hospital Course Hospital Course: 52-year-old male past medical history of COPD, alcohol use disorder, severe emphysema, chronic DVT on [employer], an [employer], who comes into the hospital after collapsing at work. Patient stated that he was working when all the sudden he syncopized, and was found unresponsive on the ground. He was brought into the hospital, on initial presentation patient was obtunded, arousable to verbal command and painful stimuli but otherwise was unable to give history, the next day patient was evaluated and states that he has not been doing too well, has been coughing, short of breath, has had chills, subjective fevers, he has also been drinking daily, syncopal episode was attributed to possible alcohol intoxication. But on further evaluation in the ED patient was also to be hypoxic with oxygen satting 87%, chest CT scan showed concerning progressive pneumonia with cavitary and fluids within cysts. Of note patient was evaluated for this pneumonia in the past on January 05, and at that time was started on 3 weeks of Augmentin, unclear if he was compliant. Patient was treated with vancomycin and Zosyn pending infectious disease consult but patient left against medical advice on 02/08. The reason for leaving he was trying to vape in the hospital, he was advised again sick, security was called, he was also found to be searching in his bag for Suboxone, he got upset that security was searching his back for any narcotics and left against the medical advice. Patient was advised the risk he is taking by leaving including severe sepsis and potential as a result, he understand the risk and left against medical advice. He was given a prescription for Levaquin 10 days and clindamycin for 7 days Patient was advised to return to the hospital if symptoms worsen Time Spent with Patient Time attestation: Total time managing care of this patient today ____ minutes. Discharge coordination time: Greater than 30 minutes Quality: Safe Use of Opioids Does Pt have an Active Cancer Diagnosis on the Problem List?: Yes Opioid Measure Date for [facility] Report: 01/10/23 Opioid Measure Time for [facility] Report: 19:37 Quality: Stroke Does the patient have a stroke diagnosis?: No Physical Exam Vital Signs: Vital Signs: Last Vital Signs Temp 97.8 F 02/08/23 15:19 Pulse 79 02/08/23 15:19 Resp 15 02/08/23 15:19 BP 119/73 02/08/23 15:19 Pulse Ox 91 L 02/08/23 15:19 O2 Del Method Room Air 02/08/23 15:19 O2 Flow Rate 2 02/08/23 11:43 Oxygen Flow Rate 2.5 02/06/23 22:13 BMI result Body Mass Index 19.1 DS: Data Data Completed and Pending Completed studies during hospitalization [Text1]: Procedures Detoxification Services for Substance Abuse Treatment (08/15/22) Resection of Gallbladder, Percutaneous Endoscopic Approach (08/15/22) Labs on day of discharge: Laboratory Results - last 24 hr 02/07/23 17:45 HIV 1&2 Ab/P24 Ag 4thGn Nonreactive Preliminary micro results at discharge 02/08/23 12:55 Blood Culture - Preliminary Blood - Venous No growth after 24 hours. 02/08/23 12:52 Blood Culture - Preliminary Blood - Venous No growth after 24 hours. 02/07/23 12:12 Blood Culture - Preliminary Blood - Venous No growth after 48 hours. 02/06/23 23:12 Blood Culture - Preliminary Blood - Venous No growth after 48 hours. 02/06/23 23:12 Blood Culture - Preliminary Blood - Venous No growth after 48 hours. Discharge Plan Discharge Anticipated Discharge Date/Time: 02/08/23 19:52 Patient Disposition: Left Against Medical Advice Discharge Diagnosis: cavitary lesions lung, alcohol withdrawal Referrals: Lizandro Teran MD [Primary Care Provider] - 1 Week Discharge Medications: New nicotine 21 mg/24 hr Patch 24 Hour 21 mg transdermal DAILY Qty: 30 0RF folic acid 1 mg Tablet 1 mg PO DAILY Qty: 30 0RF thiamine mononitrate (vit B1) 100 mg Tablet 100 mg PO DAILY Qty: 30 0RF levofloxacin 750 mg tablet 750 mg PO DAILY Qty: 10 0RF clindamycin HCl 300 mg capsule 600 mg PO Q8H Qty: 21 0RF Continued hydroxychloroquine 200 mg tablet 200 mg PO BID Qty: 180 1RF prednisone 20 mg tablet 20 mg PO DAILY 30 Days Qty: 30 3RF Eliquis 5 mg tablet 5 mg PO BID 30 Days Qty: 60 5RF ipratropium-albuterol 0.5 mg-3 mg(2.5 mg base)/3 mL solution for nebulization 3 ml inhalation Q6-8H PRN (Reason: wheezing) 30 Days Qty: 180 6RF multivitamin Tablet 1 tab PO DAILY buprenorphine-naloxone [Suboxone] 8-2 mg film 2 film sublingual DAILY albuterol sulfate 90 mcg/actuation HFA aerosol inhaler 2 puff inhalation Q4-6H PRN (Reason: shortness of breath or wheezing) 30 Days Qty: 1 6RF Discharge Orders: Discharge Order (Routine); Ordered 02/08/23 Ordered By: Candis Pizano Diet: Advance to usual diet Activity on Discharge: As tolerated Care Plan Goals: see below Health Concerns: You are leaving against medical advice. You have cavitary pneumonia which requires additional workup which is not yet completed and you should be taking broad-spectrum IV antibiotics. I am discharging you on Augmentin 875 mg twice daily times 10 days which may not effectively treat your pneumonia. Please return to the hospital for any worsening symptoms or fevers. You have been treated for acute alcohol withdrawal since admission. Abstain from alcohol You need to stop smoking. I have sent nicotine patches to her pharmacy. Plan of Treatment: as above Assessment: as above Discharge Date/Time: 02/08/23 20:15
[2023-02-12 09:22] LABS: Fentanyl, Ur NEGATIVE; Norfentanyl, Ur NEGATIVE
== END 2023-02-08 20:15 | disposition left against medical advice (07) | DRG 139 ==
LOC: HO.ED 21:07 → HO.EDOVER 21:19 → HO.IMC 02-07 18:39
PROVIDERS: Physician Assistant Medical; Admitting Provider Student in an Organized Health Care Education/Training Program; Emergency Provider Emergency Medicine; PCP Internal Medicine; Visit Provider Internal Medicine
DX: J18.9 Pneumonia, unspecified organism (principal); E87.1 Hypo-osmolality and hyponatremia; F10.129 Alcohol abuse with intoxication, unspecified; F10.139 Alcohol abuse with withdrawal, unspecified; F11.20 Opioid dependence, uncomplicated; F17.210 Nicotine dependence, cigarettes, uncomplicated; J43.9 Emphysema, unspecified; J98.4 Other disorders of lung; Z71.6 Tobacco abuse counseling; E83.42 Hypomagnesemia; Y90.4 Blood alcohol level of 80-99 mg/100 ml; Z20.822 Contact with and (suspected) exposure to COVID-19; Z86.718 Personal history of other venous thrombosis and embolism; Z88.1 Allergy status to other antibiotic agents; Z88.2 Allergy status to sulfonamides; Z79.01 Long term (current) use of anticoagulants; Z79.52 Long term (current) use of systemic steroids; Z79.899 Other long term (current) drug therapy
CPT/HCPCS: 36415; 36600; 70450; 71046; 71101; 71260; 73030; 80048; 80053; 80076; 80202; 80307; 80354; 81003; 82803; 83605; 83735; 84484; 85025; 87040; 87070; 87147; 87205; 87389; 87633; 87635; 93005; 99285; J1650; J2060; J2543; J2560; J3371; J3411; J3475; Q9967

== ENCOUNTER → 2023-02-06 22:25 | Outpatient (BNV) | payer OTHER, SELFPAY | PROVIDERS: Admitting Provider Student in an Organized Health Care Education/Training Program; Emergency Provider Emergency Medicine; PCP Internal Medicine; Visit Provider Student in an Organized Health Care Education/Training Program | DX: S20.219A Contusion of unspecified front wall of thorax, initial encounter (principal); E87.1 Hypo-osmolality and hyponatremia; J18.9 Pneumonia, unspecified organism; F10.139 Alcohol abuse with withdrawal, unspecified; J98.4 Other disorders of lung; I82.512 Chronic embolism and thrombosis of left femoral vein; R79.89 Other specified abnormal findings of blood chemistry; F10.939 Alcohol use, unspecified with withdrawal, unspecified; Z53.29 Procedure and treatment not carried out because of patient's decision for other reasons | CPT/HCPCS: 99223; 99233; 99239; 99499 ==

== ENCOUNTER → 2023-02-06 22:25 | Outpatient (BNV) | payer OTHER, SELFPAY | PROVIDERS: Admitting Provider Student in an Organized Health Care Education/Training Program; Emergency Provider Emergency Medicine; PCP Internal Medicine; Visit Provider Internal Medicine | DX: J44.9 Chronic obstructive pulmonary disease, unspecified (principal); F17.200 Nicotine dependence, unspecified, uncomplicated; I82.402 Acute embolism and thrombosis of unspecified deep veins of left lower extremity; J18.9 Pneumonia, unspecified organism; J85.2 Abscess of lung without pneumonia; F10.10 Alcohol abuse, uncomplicated | CPT/HCPCS: 99222 ==

== ENCOUNTER 2023-02-10 18:04 | Inpatient (IN) | payer OTHER, SELFPAY ==
--- NOTE | 2023-02-10 | ECG_ITS ---
Test Reason : chest pain Blood Pressure : / mmHG Vent. Rate : 082 BPM Atrial Rate : 000 BPM P-R Int : 000 ms QRS Dur : 098 ms QT Int : 408 ms P-R-T Axes : 000 -03 041 degrees QTc Int : 476 ms Normal sinus rhythm with occasional Premature ventricular complexes Septal infarct (cited on or before 05-SEP-2021) Abnormal ECG When compared with ECG of 06-FEB-2023 14:41, Left anterior fascicular block is no longer Present Premature ventricular complexes are now Present Heart rate has decreased Referred By: Generic ED Physician Electronically Signed By:BUCK BARBOZA
--- NOTE | ~2023-02-10 | CT_ITS ---
EXAMINATION: CT HEAD WITHOUT CONTRAST CLINICAL INFORMATION: Syncope. COMPARISON: CT head dated 02/06/2023; MRI brain dated 03/14/2017. TECHNIQUE: Contiguous axial imaging was performed from the skull base to vertex without intravenous administration of contrast. Multiplanar reformatted images are submitted. This CT examination was performed using dose optimization techniques as appropriate, variously including the following: *Automated exposure control *Adjustment of mA and/or kV according to patient size (this includes techniques or standardized protocols for targeted exams where dose is matched to indication/reason for exam; i.e. extremities or head) *Use of iterative reconstruction technique DLP: 870 mGy-cm (head and cervical spine) FINDINGS: There is no acute intracranial hemorrhage or evidence of territorial infarction. No abnormal mass effect or midline shift is seen. Townsend to white matter differentiation is well preserved. There is no abnormal attenuation within the brain parenchyma. The ventricles are normal in size. No extra-axial fluid collections are identified. The calvarium and scalp soft tissues are normal. The middle ear cavity and mastoid air cells are clear. Cerumen is seen within the left external auditory canal. There is mild bilateral ethmoid sinusitis. A small air-fluid level is seen within the left maxillary sinus. There is minimal sphenoid sinusitis. CT/CT cervical spine wo IV con IMPRESSION: 1. No acute intracranial pathology. 2. There is paranasal sinusitis. EXAMINATION: CT CERVICAL SPINE WITHOUT CONTRAST CLINICAL INFORMATION: Pain. COMPARISON: None available. TECHNIQUE: Contiguous axial imaging was performed through the cervical spine without intravenous administration of contrast. Multiplanar reformatted images are submitted. This CT examination was performed using dose optimization techniques as appropriate, variously including the following: *Automated exposure control *Adjustment of mA and/or kV according to patient size (this includes techniques or standardized protocols for targeted exams where dose is matched to indication/reason for exam; i.e. extremities or head) *Use of iterative reconstruction technique DLP: As above FINDINGS: Vertebral body heights are normal. At C4-C5, there is a 2 mm retrolisthesis. At C5-C6, there is a 4 mm retrolisthesis. At C6-C7, there is moderate disc space narrowing, vacuum disc phenomenon. A moderately large Schmorl's node seen at the C7 vertebral endplate. The remaining disc spaces are well-maintained. No acute fracture or spondylolisthesis is seen. There is multi-level cervical spondylosis and facet arthropathy. The posterior elements are intact. There is no prevertebral soft tissue swelling. The dens is intact. The bilateral lung apices are clear. IMPRESSION: There is multi-level cervical degenerative disease, spondylosis and facet arthropathy. No acute fracture or spondylolisthesis is seen. Fleischner guidelines were followed.
--- NOTE | ~2023-02-10 | CT_ITS ---
EXAMINATION: CT CHEST WITHOUT CONTRAST CLINICAL INFORMATION: Syncope and left chest and ecchymosis. COMPARISON: CT chest dated 02/06/2023. TECHNIQUE: Multidetector volumetric CT imaging of the chest was done. Axial MIP volume rendering provided. Sagittal and coronal reformatted images were obtained. This CT examination was performed using dose optimization techniques as appropriate, variously including the following: *Automated exposure control *Adjustment of mA and/or kV according to patient size (this includes techniques or standardized protocols for targeted exams where dose is matched to indication/reason for exam; i.e. extremities or head) *Use of iterative reconstruction technique DLP: 956 mGy-cm FINDINGS: LUNGS: There are diffuse centrilobular and paraseptal emphysematous changes. Within the superior segment left lower lobe, there are benign, calcified granulomas. There are scattered foci of minor scar/subsegmental atelectasis seen posteriorly within the bilateral upper lobes. There are persistent consolidative foci are seen within the bases, and they are peripheral groundglass opacities, left greater than right. There is marked airway obstruction, with a lower lobe predominance. There are endobronchial occlusions. There are scattered bibasilar atelectatic foci, some seen in association with endobronchial occlusions. The central airways appear patent. MEDIASTINUM: The thyroid is unremarkable. There is no thoracic aortic aneurysm. There are atherosclerotic calcifications of the great vessel origins and thoracic aorta. Within the precarinal region (5:29), a lymph node is seen with short axis diameter of 1.1 cm. Within the AP window, there is a lymph node with short axis diameter 9 mm. There are further shotty, nonpathologic enlarged lymph nodes. Bilateral hilar lymphadenopathy is suspected on imaging performed without the benefit of intravenous contrast. CORONARY ARTERY CALCIFICATION: Moderately severe. PLEURA: There is no pleural effusion. There is nonspecific bibasilar pleural thickening. No pleural mass is seen. AXILLA: No lymphadenopathy. UPPER ABDOMEN: See accompanying dictation of CT abdomen. OSSEOUS STRUCTURES: Unremarkable. CT/CT chest wo IV con IMPRESSION: 1. There are marked emphysematous changes. 2. There are persistent patchy bibasilar infiltrates and groundglass foci. These are seen in association with bilateral lower lobe small airway thickening and endobronchial occlusions. Again, these findings are likely infectious or inflammatory in etiology. Recommend radiographic follow-up to clearance. 3. Mildly enlarged mediastinal and probable bilateral hilar lymph nodes are noted. These are nonspecific and should be managed on a clinical basis. Recommend continued attention on imaging follow-up. 4. There are moderately severe coronary artery atherosclerotic calcifications. 5. Osseous structures are unremarkable. Fleischner guidelines were followed.
--- NOTE | ~2023-02-10 | XR_ITS ---
X-RAY LEFT SHOULDER X-RAY LEFT HUMERUS X-RAY LEFT ELBOW CLINICAL HISTORY: Fall, pain. COMPARISON: Radiograph left shoulder 02/07/2023. TECHNIQUE: 2 views of the left shoulder. 2 views of the left humerus. 2 views of the left elbow. FINDINGS: No acute fractures or subluxation in the left shoulder, humerus nor elbow. Decreased acromiohumeral interval which could be seen with rotator cuff disease. No abnormal soft tissue calcifications. No joint effusions. No unexpected radiopaque foreign bodies. Multifocal airspace opacities are partially imaged in the left lung, refer to recent chest radiograph from 02/07/2023 for additional details. XR/XR shoulder LT min 2V IMPRESSION: 1. No acute fractures or subluxation in the left shoulder, humerus or elbow. 2. Decreased acromiohumeral interval which could be seen with rotator cuff disease. 3. Partially imaged multifocal airspace opacities.
--- NOTE | ~2023-02-10 | XR_ITS ---
X-RAY LEFT SHOULDER X-RAY LEFT HUMERUS X-RAY LEFT ELBOW CLINICAL HISTORY: Fall, pain. COMPARISON: Radiograph left shoulder 02/07/2023. TECHNIQUE: 2 views of the left shoulder. 2 views of the left humerus. 2 views of the left elbow. FINDINGS: No acute fractures or subluxation in the left shoulder, humerus nor elbow. Decreased acromiohumeral interval which could be seen with rotator cuff disease. No abnormal soft tissue calcifications. No joint effusions. No unexpected radiopaque foreign bodies. Multifocal airspace opacities are partially imaged in the left lung, refer to recent chest radiograph from 02/07/2023 for additional details. XR/XR elbow LT 2V IMPRESSION: 1. No acute fractures or subluxation in the left shoulder, humerus or elbow. 2. Decreased acromiohumeral interval which could be seen with rotator cuff disease. 3. Partially imaged multifocal airspace opacities.
--- NOTE | ~2023-02-10 | XR_ITS ---
X-RAY LEFT SHOULDER X-RAY LEFT HUMERUS X-RAY LEFT ELBOW CLINICAL HISTORY: Fall, pain. COMPARISON: Radiograph left shoulder 02/07/2023. TECHNIQUE: 2 views of the left shoulder. 2 views of the left humerus. 2 views of the left elbow. FINDINGS: No acute fractures or subluxation in the left shoulder, humerus nor elbow. Decreased acromiohumeral interval which could be seen with rotator cuff disease. No abnormal soft tissue calcifications. No joint effusions. No unexpected radiopaque foreign bodies. Multifocal airspace opacities are partially imaged in the left lung, refer to recent chest radiograph from 02/07/2023 for additional details. XR/XR humerus LT IMPRESSION: 1. No acute fractures or subluxation in the left shoulder, humerus or elbow. 2. Decreased acromiohumeral interval which could be seen with rotator cuff disease. 3. Partially imaged multifocal airspace opacities.
--- NOTE | ~2023-02-10 | CT_ITS ---
EXAMINATION: CT ABDOMEN AND PELVIS WITHOUT CONTRAST CLINICAL INFORMATION: Abdominal pain and ecchymosis. COMPARISON: Abdominal ultrasound dated 08/15/2022; CT abdomen and pelvis dated 08/15/2022. TECHNIQUE: Multidetector volumetric imaging was performed from the superior aspect of the liver through the pubic symphysis. Sagittal and coronal reformatted images were obtained on the technologist's workstation. This CT examination was performed using dose optimization techniques as appropriate, variously including the following: *Automated exposure control *Adjustment of mA and/or kV according to patient size (this includes techniques or standardized protocols for targeted exams where dose is matched to indication/reason for exam; i.e. extremities or head) *Use of iterative reconstruction technique DLP: 956 mGy-cm FINDINGS: LUNG BASES: See accompanying dictation for CT chest. LIVER, GALLBLADDER, AND BILIARY TREE: The liver is normal in size, shape, and attenuation. No focal hepatic lesion or biliary ductal dilatation is present. The gallbladder is surgically absent. PANCREAS: Unremarkable. SPLEEN: Unremarkable. ADRENAL GLANDS: Unremarkable. KIDNEYS AND URETERS: The kidneys are normal in size, shape, and attenuation. No hydronephrosis, hydroureter, or calculi seen. There is mild nonspecific bilateral perinephric stranding. BLADDER: Somewhat distended and otherwise unremarkable. GASTROINTESTINAL TRACT: The small and large bowel are unremarkable. No obstruction, free intraperitoneal air or abscess is seen. There is no focal bowel wall thickening. No significant diverticulosis or diverticulitis is seen. The vermiform appendix is not identified with certainty; however, there is no finding to suggest appendicitis. ABDOMINAL WALL: No significant hernia is appreciated. There is mild generalized anasarca. There is asymmetric focal subcutaneous edematous change within the left flank. LYMPH NODES: Normal. VASCULAR: There is moderately severe aortoiliac atherosclerotic calcifications. No abdominal aortic aneurysm is seen. PELVIC VISCERA: Unremarkable. OSSEOUS STRUCTURES: There is multi-focal lumbar spondylosis. There is facet arthropathy at L5-S1. There are degenerative changes of the hips. No acute or aggressive osseous abnormality is seen. CT/CT abdomen pelvis wo IV con IMPRESSION: 1. The urinary bladder appears distended. 2. There is generalized anasarca. There is superimposed asymmetric focal subcutaneous edema within the left flank. 3. No acute or aggressive osseous abnormality is seen. Fleischner guidelines were followed.
[2023-02-10 18:41] VITALS: BP 109/83; PULSE 94; RESP 18; TEMP 36.1; O2SAT 96; BMI 18.4
[2023-02-10 18:46] LABS: MANUAL DIFF FLAG NO
[2023-02-10 19:09] LABS: Alanine Aminotransferase 20 U/L (0-40); Albumin Level 2.7 g/dL (3.5-5.0); Alkaline Phosphatase 188 U/L (39-117); Anion Gap 15 (12-20); Aspartate Amino Transferase 36 U/L (5-37); Bilirubin Total 0.5 mg/dL (0.0-1.0); Blood Urea Nitrogen 25 mg/dL (9-16); Calcium 8.3 mg/dL (8.4-10.2); Carbon Dioxide 22 mmol/L (22-29); Chloride 86 mmol/L (96-108); Creatinine Clr Calc Pharmacy 28.9; Estimated Glomerular Filt Rate 26; Glucose Random 89 mg/dL (60-115); Potassium 3.5 mmol/L (3.3-5.1); Sodium 119 mmol/L (135-145); Total Protein 7.4 g/dL (6.5-8.0); Troponin-I High Sensitivity 4.7 ng/L (<3.5-35.0)
[2023-02-10 19:22] LABS: Basophils Percent Auto 0.3 % (0-2); Eosinophils Absolute Auto 0.1 X10*3/uL (0.0-0.4); Hematocrit 35.3 % (42.0-52.0); Hemoglobin 12.7 g/dl (14.0-18.0); Imm Gran Abs Auto 0.14 X10*3/uL (0.00-0.03); Imm Gran Pct Auto 1.3 % (0.0-0.4); Lymphocytes Absolute Auto 0.6 X10*3/uL (1.2-4.9); Lymphocytes Percent Auto 6.1 % (20-40); Mean Corpuscular Volume 91.7 fL (80.0-98.0); Mean Platelet Volume 10.2 fL (9.4-12.4); Monocytes Absolute Auto 1.2 X10*3/uL (0.1-1.2); Monocytes Percent Auto 11.9 % (2-11); Neutrophils Absolute Auto 8.3 x10*3/uL (2.0-8.3); Neutrophils Percent Auto 79.4 % (45-73); Platelet Count 221 X10*3/uL (160-400); Red Blood Count 3.85 X10*6/uL (4.60-5.80); Red Cell Distribution Width 11.5 % (11.0-16.0); White Blood Count 10.4 X10*3/uL (4.8-10.8)
--- NOTE | 2023-02-10 19:56 | PHA.MEDREC ---
Pharmacy Consult ? Medication Reconciliation Pharmacy has completed the medication reconciliation. Patient left AMA on 02/10/23 where med rec was completed by Greer Miranda. Utilized discharge summary to completed med rec. Clindamycin prescribed x 4 days should finished 02/14 and levaquin prescribed x 10 day should finished 02/19/23. Marilu Carrillo, Mary BethD
[2023-02-10 20:06] VITALS: BP 157/94; PULSE 82; RESP 16; TEMP 36.8; O2SAT 98
--- NOTE | 2023-02-10 20:18 | MHC.EDTECH ---
This tech assumed care of pt at 1900, vitals were taken, warm blanket was giving and patient is attempting to give a urine sample at this time. Call hernandez within reach
--- NOTE | 2023-02-10 20:27 | MHC.EDTECH ---
Patient urinated 200cc in urinal, Urine sample was collected and sent to lab.
[2023-02-10 20:44] LABS: Appearance Urine Clear; Color Urine Yellow; Glucose Urine UA Negative (Negative); Leukocyte Esterase Urine Negative (Negative); Nitrite Urine Negative (Negative); Specific Gravity - Urine <= 1.005 (1.005-1.025); Urine Blood Negative (Negative); Urine Ketones Negative (Negative); Urine Protein Negative (Neg-Trace)
[2023-02-10 21:09] LABS: Osmolality Urine 102 mosm/kg (373-1093)
--- NOTE | 2023-02-10 21:16 | ED.CHESTPAIN ---
HPI - Chest Pain General Chief Complaint: Chest Pain Stated Complaint: chest pain, left side banged up Time Seen by Provider: 02/10/23 20:48 Source: patient Mode of arrival: ambulatory Limitations: no limitations History of Present Illness HPI narrative: 52-year-old male with history of EtOH abuse, anxiety, COPD, substance abuse, emphysema patient presented to the ED for multiple complains. 1. Bilateral lower extremities weakness patient stated been going for few weeks, patient unable to bear weight. 2. Generalized weakness. 3. Patient was found by a co-worker at work on the ground 5 days ago. Patient was seen in the emergency department had CT of the head and chest with slight hyponatremia but normal renal function test. Related Data Home Medications Medication Instructions Recorded Confirmed buprenorphine 8 mg-naloxone 2 mg 2 film sublingual DAILY 08/10/20 02/10/23 sublingual film (Suboxone) multivitamin 1 tab PO DAILY 09/05/21 02/10/23 nicotine 21 mg/24 hr daily 21 mg transdermal DAILY PRN 02/10/23 02/10/23 transdermal patch Nicotine Cravings Previous Rx's Medication Instructions Recorded hydroxychloroquine 200 mg tablet 200 mg PO BID #180 tabs 10/21/22 albuterol sulfate 90 mcg/actuation 2 puff inhalation Q4-6H PRN 12/25/22 aerosol inhaler shortness of breath or wheezing 30 days #1 ea prednisone 20 mg tablet 20 mg PO DAILY 30 days #30 tabs 01/14/23 apixaban 5 mg tablet (Eliquis) 5 mg PO BID 30 days #60 tabs 01/26/23 ipratropium 0.5 mg-albuterol 3 mg 3 ml inhalation Q6-8H PRN wheezing 02/03/23 (2.5 mg base)/3 mL nebulization 30 days #180 mL soln clindamycin HCl 300 mg capsule 600 mg PO Q8H #21 caps 02/08/23 folic acid 1 mg tablet 1 mg PO DAILY #30 tabs 02/08/23 levofloxacin 750 mg tablet 750 mg PO DAILY #10 tabs 02/08/23 thiamine mononitrate (vit B1) 100 100 mg PO DAILY #30 tabs 02/08/23 mg tablet Allergies Allergy/AdvReac Type Severity Reaction Status Date / Time Sulfa (Sulfonamide AdvReac Intermediate NAUSEA & Verified 08/22/23 18:40 Antibiotics) VOMITING [SULFA (SULFONAMIDE ANTIBIOTICS)] doxycycline AdvReac Mild Vomiting Verified 02/10/23 18:40 Review of Systems Review of Systems: All other systems are reviewed and are negative Constitutional: Reports as per HPI and Reports no additional constitutional complaints Eyes: Reports as per HPI and Reports no additional eye complaints Reports system reviewed and no additional complaints, except as documented Cardiovascular: Reports as per HPI and Reports no additional cardiovascular complaints Respiratory: Reports as per HPI and Reports no additional respiratory complaints Gastrointestinal: Reports as per HPI and Reports no additional gastrointestinal complaints Genitourinary: Reports no additional female genitourinary complaints Musculoskeletal: Reports no additional musculoskeletal complaints Skin/Breast: Reports system reviewed and no additional complaints, except as docu Psychiatric: Reports no additional psychiatric complaints Endocrine: Reports no additional endocrine complaints Hematologic/Lymphatic: Reports no additional hematologic/lymphatic complaints Allergic/Immunologic: Reports no additional allergic/immunologic complaints Reports system reviewed and no additional complaints, except as documented and Reports Abnormal speech present [facility] Past Medical History Medical History AA (alcohol abuse) Abdominal hernia Alcohol use Anxiety Bilateral leg weakness Chronic deep vein thrombosis (DVT) of left lower extremity COPD (chronic obstructive pulmonary disease) Elevated LFTs Epidermal cyst History of substance abuse Pneumonia with cavity of lung Pulmonary emphysema Smoker Varicose veins of both lower extremities Surgical History History of laparoscopic cholecystectomy (~08/19/22) Family History Family History Father CVD (cardiovascular disease) Mother Rheumatoid arthritis Sister No problems noted. Maternal Uncle Prostate cancer Maternal Uncle Lung cancer Colon cancer Social History Social History Household Members: Other Housing: House Housing Other:: with roomate Are you a primary certified caregiver to a significant other at home: No Do you presently have visiting nurse or other home services: No Alcohol intake: current Alcohol intake frequency: 3 or more drinks per day Alcohol type: beer Patient Tobacco Use Status: Current everyday Tobacco user Tobacco use type: Cigarette Cigarette Packs Per Day: 3 Cigarettes Per Day: 60.0 Years Smoked: 31 Smoked in Last 30 Days: Yes e-Cigarette/Vaping Use: Currently Using Second Hand Smoke Exposure: Yes Use of substances other than those prescribed or required for medical reasons: No Advance Directives: No Advance Directives Information Provided: No service: No Current occupational status: employed Current occupation: rt hand / golf [employer] Cognitive needs: No Hearing needs: No Vision needs: Yes Physical Exam Vital Signs: Vital Signs: Last Vital Signs Temp 98.2 F 02/10/23 23:49 Pulse 88 02/10/23 23:49 Resp 18 02/10/23 23:49 BP 144/87 H 02/10/23 23:49 Pulse Ox 98 02/10/23 23:49 O2 Del Method Room Air 02/10/23 23:49 BMI result Body Mass Index 18.4 Vital signs have been reviewed as appeared to be correct. Blood pressure normal. Heart rate normal. Respiration rate normal. Temperature normal. Oxygen saturation normal. Appearance: Cachectic, dehydrated. Alert. No acute distress. Head: Normal external exam. Normocephalic. Atraumatic. No Kerr signs noted. No raccoon eyes noted Eyes: PERRLA. EOMI. Conjunctiva and sclera normal. Eyelids normal. ENT: TM's Normal. Pharynx normal. Uvula midline. Moist mucous membranes. No trismus noted. No drooling noted. No muffled voice noted. Neck: Normal inspection. Neck supple. FROM. No adenopathy. Thyroid Normal. No meningeal signs. No neck mass noted. CVS: Normal heart rate and rhythm. Heart sound normal. No murmurs noted. Pulses normal throughout. Respiratory: No respiratory distress. Painless inspiration. Breath sounds normal. No wheezes/rales/rhonchi noted. Chest nontender. No accessory muscle usage noted or decreased air movement noted. Abdomen: Soft and nontender. Bowel sounds normal in all 4 quadrants. No distention noted. No organomegaly noted. No visible injury noted. Back: No CVA tenderness. Full range of motion noted. Skin: Skin warm and dry. Normal skin color. Normal skin turgor. No rashes/lesions/lacerations noted. Extremities: No lower extremity edema. Extremities exhibit normal range of motion. Extremities nontender. Neuro: Oriented X 3. Cranial nerve exam: II-XII are grossly intact No motor deficit. No sensory deficit. Reflexes normal. Course Course Course Narrative: 52-year-old male came in for generalized weakness, had a recent syncopal episode and fall. 1. Acute renal failure with hyponatremia, dehydration the case discussed with Dr. Reid who recommended to check serum and urine osmolarity, serum electrolyte q.4 hours, urine electrolytes, gentle hydration with normal saline at 100 cc/hour, sodium should be corrected at 2 points every 4 hours, Collins catheter. 2. Patient is an alcoholic drinker every day will start the patient on phenobarb. 3. Pneumonia on the CT. Will start patient on Zosyn with severe sepsis (acute renal failure). Medications Administered Generic Name Dose Route Start Last Admin Trade Name Freq PRN Reason Stop Dose Admin Enoxaparin Sodium 30 mg 02/11/23 00:45 02/11/23 00:50 Enoxaparin Sodium 30 Mg/0.3 Ml Syringe SUBCUT 30 mg BEDTIME SURESH Administration Sodium Chloride 1,000 mls @ 100 mls/hr 02/10/23 23:45 02/11/23 00:38 Ns IVCONT 100 mls/hr .Q10H SURESH Administration Piperacillin Sod/Tazobactam 50 mls @ 100 mls/hr 02/11/23 06:00 02/11/23 00:44 Sod 3.375 gm/ Sodium Chloride IV Not Given Q6H SURESH Phenobarbital Sodium 184.6 mg 02/11/23 00:30 02/11/23 00:38 Phenobarbital Sodium 130 Mg/Ml Vial Im Q3hx2 IM 02/11/23 03:31 184.6 mg Q3H SURESH Administration Protocol Discontinued Medications Generic Name Dose Route Start Last Admin Trade Name Freq PRN Reason Stop Dose Admin Sodium Chloride 1,000 mls @ 999 mls/hr 02/10/23 21:02 02/10/23 22:17 Ns IV 02/10/23 22:02 999 mls/hr .Q1H1M ONE Administration Piperacillin Sod/Tazobactam 50 mls @ 100 mls/hr 02/10/23 23:22 02/11/23 00:37 Sod 3.375 gm/ Sodium Chloride IV 02/10/23 23:51 100 mls/hr ONCE ONE Administration Phenobarbital Sodium 246 mg 02/10/23 21:30 02/10/23 22:14 Phenobarbital Sodium 130 Mg/Ml Im Once IM 02/10/23 21:31 246 mg ONCE ONE Administration Protocol Medical Decision Making Differential Diagnosis Differential Diagnoses: The differential diagnosis associated with the presentation includes (Acute renal failure, electrolyte abnormality, severe dehydration, intra-abdominal neuropathy, intrathoracic trauma, intra-abdominal trauma, intracranial bleed, severe anemia.) Admission/Observation Consideration of admission/observation: Escalation of care including admission/observation considered Consult Healthcare Provider Management of the patient was discussed with: Hospitalist (Dr. Mcconnell.) and Associate Professor Of Sociology (Dr. Lopez ( renal).) Lab Data MDM Lab Attestation statement: I reviewed the patient's lab results. 02/10/23 18:40 02/10/23 18:40 Labs: Lab Results 02/10/23 02/10/23 02/10/23 Range/Units 18:40 18:40 18:40 WBC 10.4 (4.8-10.8) X10*3/uL RBC 3.85 L (4.60-5.80) X10*6/uL Hgb 12.7 L (14.0-18.0) g/dl Hct 35.3 L (42.0-52.0) % MCV 91.7 (80.0-98.0) fL MCH 33.0 (27.0-33.0) pg MCHC 36.0 (31.0-36.0) g/dl RDW 11.5 (11.0-16.0) % Plt Count 221 D (160-400) X10*3/uL MPV 10.2 (9.4-12.4) fL Immature Gran % (Auto) 1.3 H (0.0-0.4) % Neut % (Auto) 79.4 H (45-73) % Lymph % (Auto) 6.1 L (20-40) % [place] % (Auto) 11.9 H (2-11) % Eos % (Auto) 1.0 (0-4) % Baso % (Auto) 0.3 (0-2) % Lymph # (Auto) 0.6 L (1.2-4.9) X10*3/uL [place] # (Auto) 1.2 (0.1-1.2) X10*3/uL Eos # (Auto) 0.1 (0.0-0.4) X10*3/uL Baso # (Auto) 0.0 (0.0-0.2) X10*3/uL Abs Immat Gran (auto) 0.14 H (0.00-0.03) X10*3/uL Absolute Neuts (auto) 8.3 (2.0-8.3) x10*3/uL Absolute Nucleated RBC 0.000 (0.0-0.012) X10*3/uL Nucleated RBC % (auto) 0.0 (0.0-0.2) /100WBC Sodium 119 L* (135-145) mmol/L Potassium 3.5 D (3.3-5.1) mmol/L Chloride 86 L (96-108) mmol/L Carbon Dioxide 22 (22-29) mmol/L Anion Gap 15 (12-20) BUN 25 H (9-16) mg/dL Creatinine 2.60 H (0.5-1.4) mg/dL Estim Creat Clear Calc 28.9 Estimated GFR 26 Random Glucose 89 (60-115) mg/dL Lactic Acid (0.5-2.0) mmol/L Calcium 8.3 L (8.4-10.2) mg/dL Total Bilirubin 0.5 (0.0-1.0) mg/dL AST 36 (5-37) U/L ALT 20 (0-40) U/L Alkaline Phosphatase 188 H (39-117) U/L Total Creatine Kinase 64 (38-174) U/L Troponin I High Sens 4.7 (<3.5-35.0) ng/L Total Protein 7.4 (6.5-8.0) g/dL Albumin 2.7 L (3.5-5.0) g/dL Urine Color Urine Appearance Urine pH (5.0-9.0) Ur Specific [place] (1.005-1.025) Urine Protein (Neg-Trace) mg/dL Urine Glucose (UA) (Negative) mg/dL Urine Ketones (Negative) mg/dL Urine Blood (Negative) Urine Nitrite (Negative) Ur Leukocyte Esterase (Negative) Urine Osmolality (373-1093) mosm/kg Ur Random Sodium mmol/L Ur Random Potassium mmol/L Ur Random Chloride mmol/L Urine Creatinine mg/dL 02/10/23 02/10/23 02/10/23 Range/Units 20:27 20:27 20:27 WBC (4.8-10.8) X10*3/uL RBC (4.60-5.80) X10*6/uL Hgb (14.0-18.0) g/dl Hct (42.0-52.0) % MCV (80.0-98.0) fL MCH (27.0-33.0) pg MCHC (31.0-36.0) g/dl RDW (11.0-16.0) % Plt Count (160-400) X10*3/uL MPV (9.4-12.4) fL Immature Gran % (Auto) (0.0-0.4) % Neut % (Auto) (45-73) % Lymph % (Auto) (20-40) % [place] % (Auto) (2-11) % Eos % (Auto) (0-4) % Baso % (Auto) (0-2) % Lymph # (Auto) (1.2-4.9) X10*3/uL [place] # (Auto) (0.1-1.2) X10*3/uL Eos # (Auto) (0.0-0.4) X10*3/uL Baso # (Auto) (0.0-0.2) X10*3/uL Abs Immat Gran (auto) (0.00-0.03) X10*3/uL Absolute Neuts (auto) (2.0-8.3) x10*3/uL Absolute Nucleated RBC (0.0-0.012) X10*3/uL Nucleated RBC % (auto) (0.0-0.2) /100WBC Sodium (135-145) mmol/L Potassium (3.3-5.1) mmol/L Chloride (96-108) mmol/L Carbon Dioxide (22-29) mmol/L Anion Gap (12-20) BUN (9-16) mg/dL Creatinine (0.5-1.4) mg/dL Estim Creat Clear Calc Estimated GFR Random Glucose (60-115) mg/dL Lactic Acid (0.5-2.0) mmol/L Calcium (8.4-10.2) mg/dL Total Bilirubin (0.0-1.0) mg/dL AST (5-37) U/L ALT (0-40) U/L Alkaline Phosphatase (39-117) U/L Total Creatine Kinase (38-174) U/L Troponin I High Sens (<3.5-35.0) ng/L Total Protein (6.5-8.0) g/dL Albumin (3.5-5.0) g/dL Urine Color Yellow Urine Appearance Clear Urine pH 6.0 (5.0-9.0) Ur Specific [place] <= 1.005 (1.005-1.025) Urine Protein Negative (Neg-Trace) mg/dL Urine Glucose (UA) Negative (Negative) mg/dL Urine Ketones Negative (Negative) mg/dL Urine Blood Negative (Negative) Urine Nitrite Negative (Negative) Ur Leukocyte Esterase Negative (Negative) Urine Osmolality 102 L (373-1093) mosm/kg Ur Random Sodium < 20.0 mmol/L Ur Random Potassium 10.7 mmol/L Ur Random Chloride < 20.0 mmol/L Urine Creatinine 23.98 mg/dL 02/11/23 Range/Units 00:06 WBC (4.8-10.8) X10*3/uL RBC (4.60-5.80) X10*6/uL Hgb (14.0-18.0) g/dl Hct (42.0-52.0) % MCV (80.0-98.0) fL MCH (27.0-33.0) pg MCHC (31.0-36.0) g/dl RDW (11.0-16.0) % Plt Count (160-400) X10*3/uL MPV (9.4-12.4) fL Immature Gran % (Auto) (0.0-0.4) % Neut % (Auto) (45-73) % Lymph % (Auto) (20-40) % [place] % (Auto) (2-11) % Eos % (Auto) (0-4) % Baso % (Auto) (0-2) % Lymph # (Auto) (1.2-4.9) X10*3/uL [place] # (Auto) (0.1-1.2) X10*3/uL Eos # (Auto) (0.0-0.4) X10*3/uL Baso # (Auto) (0.0-0.2) X10*3/uL Abs Immat Gran (auto) (0.00-0.03) X10*3/uL Absolute Neuts (auto) (2.0-8.3) x10*3/uL Absolute Nucleated RBC (0.0-0.012) X10*3/uL Nucleated RBC % (auto) (0.0-0.2) /100WBC Sodium (135-145) mmol/L Potassium (3.3-5.1) mmol/L Chloride (96-108) mmol/L Carbon Dioxide (22-29) mmol/L Anion Gap (12-20) BUN (9-16) mg/dL Creatinine (0.5-1.4) mg/dL Estim Creat Clear Calc Estimated GFR Random Glucose (60-115) mg/dL Lactic Acid 0.8 (0.5-2.0) mmol/L Calcium (8.4-10.2) mg/dL Total Bilirubin (0.0-1.0) mg/dL AST (5-37) U/L ALT (0-40) U/L Alkaline Phosphatase (39-117) U/L Total Creatine Kinase (38-174) U/L Troponin I High Sens (<3.5-35.0) ng/L Total Protein (6.5-8.0) g/dL Albumin (3.5-5.0) g/dL Urine Color Urine Appearance Urine pH (5.0-9.0) Ur Specific [place] (1.005-1.025) Urine Protein (Neg-Trace) mg/dL Urine Glucose (UA) (Negative) mg/dL Urine Ketones (Negative) mg/dL Urine Blood (Negative) Urine Nitrite (Negative) Ur Leukocyte Esterase (Negative) Urine Osmolality (373-1093) mosm/kg Ur Random Sodium mmol/L Ur Random Potassium mmol/L Ur Random Chloride mmol/L Urine Creatinine mg/dL Independent Interpretation I performed an independent interpretation of an: Plain X-Ray (Left shoulder/humerus/elbow x-rays: No acute fracture or subluxation.) and CT Scan (Chest/abdomen and pelvis/head/cervical spine: Bilateral basilar ground-glass infiltrate, dilated bladder, no acute intracranial pathology, no cervical spine fracture.) Radiology Impression Discussion of test interpretation with radiology: I have reviewed the radiologist's reading. Chronic Conditions Patient?s care impacted by: Other (Alcohol dependence) Critical Care Time Critical Care Time Critical Care Time: Yes Total Critical Care Time: 60 Attestation: I spent 60 minutes providing critical care service to the patient, this including time spent at the bedside to evaluate the patient, reassess the patient, monitoring vital signs, review labs, and radiographic studies, counseling the patient/family, discussing the case with consultants, disposition the patient. Discharge Plan Discharge Clinical Impression: Alcohol withdrawal, Acute hyponatremia, Acute kidney insufficiency, Dehydration, Pneumonia Patient Disposition: Admitted As Inpatient
[2023-02-10 21:39] VITALS: BP 156/86; PULSE 79; RESP 18; TEMP 36.6; O2SAT 98
--- NOTE | 2023-02-10 21:39 | MHC.EDTECH ---
Hourly rounds completed and vitals were taken.pt is resting comfortably at this time and call hernandez within reach
[2023-02-10 21:59] LABS: Creatinine Urine 23.98 mg/dL; Potassium Urine Random 10.7 mmol/L; Sodium Urine Random < 20.0 mmol/L
[2023-02-10] MEDS: PHENobarbitaL sodium 130 MG/ML IM ONCE 246 MG IM (22:14)
[2023-02-10 22:17] LABS: Chloride Urine Random < 20.0 mmol/L
[2023-02-10] MEDS: 0.9 % Sodium Chloride 1,000 ML 999 ML IV (22:17)
--- NOTE | 2023-02-10 22:51 | MHC.EDTECH ---
Patient urinated 475cc of urine in urinal
[2023-02-10 23:49] VITALS: BP 144/87; PULSE 88; RESP 18; TEMP 36.8; O2SAT 98
[2023-02-11] VITALS (10 sets, daily range): BP systolic 98–153; BP diastolic 65–94; PULSE 86–124; RESP 16–20; TEMP 36.7–37.2; O2SAT 95–98; BMI 20.7
--- NOTE | 2023-02-11 | ECG_ITS ---
Test Reason : ELEVATED HEART RATE Blood Pressure : / mmHG Vent. Rate : 104 BPM Atrial Rate : 104 BPM P-R Int : 186 ms QRS Dur : 096 ms QT Int : 370 ms P-R-T Axes : 096 -46 067 degrees QTc Int : 486 ms Sinus tachycardia with Premature supraventricular complexes Left anterior fascicular block Anteroseptal infarct (cited on or before 05-SEP-2021) Abnormal ECG When compared with ECG of 10-FEB-2023 18:31, Left anterior fascicular block is now Present Premature supraventricular complexes are now Present Premature ventricular complexes are no longer Present Heart rate has increased Referred By: Jhonny Mcconnell Electronically Signed By:BUCK BARBOZA
--- NOTE | 2023-02-11 00:11 | MHC.EDTECH ---
Blood cultures and lactic drawn and sent to lab. Belongings list completed. Patient was giving two sandwiches and a can of gingerale.
[2023-02-11 00:37] LABS: Lactic Acid 0.8 mmol/L (0.5-2.0)
[2023-02-11] MEDS: Piperacillin Sodium/Tazobactam 3.375 GM in 0.9 % Sodium Chloride 50 ML IV ×3 (00:37→11:07)
[2023-02-11] MEDS: PHENobarbitaL sodium 130 MG/ML VIAL IM Q3Hx2 184.6 MG IM (00:38)
[2023-02-11] MEDS: 0.9 % Sodium Chloride 1,000 ML 100 ML IVCONT ×2 (00:38→09:05)
[2023-02-11] MEDS: Enoxaparin Sodium 30 MG/0.3 ML SYRINGE SUBCUT (00:50)
[2023-02-11] MEDS: vancomycin HCL 1,250 MG in 0.9 % Sodium Chloride 250 ML 166.67 MG IV (01:54)
--- NOTE | 2023-02-11 02:22 | MHC.EDTECH ---
Hourly rounding completed, Vitals taken and heart rate was at 124 DR. Mcconnell was at bedside and ordered an EKG. This tech made RACHELLE Blanco aware and EKG was completed. Heart rate is at 100 at this time.
--- NOTE | 2023-02-11 02:25 | PC.NURSE ---
Lety told this nurse that patient heart rate had elevated to the 120's while hospitalist was at bedside. Currently patient heart rate is in the high 90's to low 100's. Patient feels no different at this time.
--- NOTE | 2023-02-11 04:01 | MHC.EDTECH ---
Hourly rounds completed, patient is sleeping at this time.
--- NOTE | 2023-02-11 04:50 | MHC.EDTECH ---
Vitals were updated and blood pressure is low at 98/65 RACHELLE Robert and Hospitalist was made aware.
--- NOTE | 2023-02-11 05:55 | PM.IMHP ---
History of Present Illness Date of Service: 02/11/23 Chief Complaint: cough 52-year-old male with past medical history of COPD, alcohol use disorder, severe diffuse edema, chronic DVT on Eliquis, recently diagnosed worsening cavitary pneumonia comes into the hospital after leaving AMA on 820 stating worsening symptoms. Of note patient was admitted on 818 after coming to the hospital with complaints of syncope. Patient was found by his colleagues at work on the ground. He was intoxicated, and found to have containing progressive pneumonia with cavitary in fluid within cyst. At that time patient was admitted, started on broad-spectrum antibiotics, but left AMA. Patient returns today complaining of worsening cough, subjective fevers, chills. Denies any chest pain, reports shortness of breath on exertion. No abdominal pain nausea or vomiting, no diarrhea constipation, no urinary symptoms and no lower extremity edema. On arrival to the ED patient hemodynamically stable with a slightly elevated heart rate that resolved Labs are significant for WBC count of 10.4, hemoglobin of 12.7, sodium of 119, chloride of 86, creatinine of 2.6 of, albumin of 2.7, urine osmolality of 102, random urine sodium of less than 20, potassium of 10.7, and urine creatinine of 23.98 Nephrology was consulted, patient started on IV fluids and IV antibiotics and will be admitted for further management Review of Systems Review of Systems: Yes all other systems are reviewed and are negative [facility] Medical History AA (alcohol abuse) Abdominal hernia Alcohol use Anxiety Bilateral leg weakness Chronic deep vein thrombosis (DVT) of left lower extremity COPD (chronic obstructive pulmonary disease) Elevated LFTs Epidermal cyst History of substance abuse Pneumonia with cavity of lung Pulmonary emphysema Smoker Varicose veins of both lower extremities Family History Father CVD (cardiovascular disease) Mother Rheumatoid arthritis Sister No problems noted. Maternal Uncle Prostate cancer Maternal Uncle Lung cancer Colon cancer Surgical History History of laparoscopic cholecystectomy (~08/19/22) Social History Household Members: Other Housing: House Housing Other:: with roomate Are you a primary toddler caregiver to a significant other at home: No Do you presently have visiting nurse or other home services: No Alcohol intake: current Alcohol intake frequency: 3 or more drinks per day Alcohol type: beer Patient Tobacco Use Status: Current everyday Tobacco user Tobacco use type: Cigarette Cigarette Packs Per Day: 3 Cigarettes Per Day: 60.0 Years Smoked: 31 Smoked in Last 30 Days: Yes e-Cigarette/Vaping Use: Currently Using Second Hand Smoke Exposure: Yes Use of substances other than those prescribed or required for medical reasons: No Advance Directives: No Advance Directives Information Provided: No service: No Current occupational status: employed Current occupation: rt hand / golf [employer] Cognitive needs: No Hearing needs: No Vision needs: Yes Meds Allergies Allergy/AdvReac Type Severity Reaction Status Date / Time Sulfa (Sulfonamide AdvReac Intermediate NAUSEA & Verified 02/10/23 18:40 Antibiotics) VOMITING [SULFA (SULFONAMIDE ANTIBIOTICS)] doxycycline AdvReac Mild Vomiting Verified 02/10/23 18:40 Active Medications: Current Medications Acetaminophen (Acetaminophen 325 Mg Tablet) 650 mg PO Q6H PRN PRN Reason: Pain, Mild (Pain Scale 1-3) Docusate Sodium (Docusate Sodium 100 Mg Capsule) 100 mg PO DAILY PRN PRN Reason: Constipation Enoxaparin Sodium (Enoxaparin Sodium 30 Mg/0.3 Ml Syringe) 30 mg SUBCUT BEDTIME [facility] Last Admin: 02/11/23 00:50 Dose: 30 mg Sodium Chloride (Ns) 1,000 mls @ 100 mls/hr IVCONT .Q10H [facility] Last Admin: 02/11/23 00:38 Dose: 100 mls/hr Piperacillin Sod/Tazobactam (Sod 3.375 gm/ Sodium Chloride) 50 mls @ 100 mls/hr IV Q6H [facility] Last Admin: 02/11/23 00:44 Dose: Not Given Lactated Ringer's (Lr) 1,000 mls @ 100 mls/hr IVCONT .Q10H [facility] Lactated Ringer's (Lr) 1,000 mls @ 999 mls/hr IV .Q1H1M [facility] Stop: 02/11/23 06:00 Morphine Sulfate (Morphine Sulfate 4 Mg/Ml Cartridge) 4 mg IVPUSH Q4H PRN; Protocol PRN Reason: Pain, Severe (Pain Scale 7-10) Ondansetron HCl (Ondansetron Hcl 4 Mg/2 Ml Vial) 4 mg IVPUSH Q8H PRN PRN Reason: Nausea and Vomiting Pharmacy Consult (Consult Rx Etoh Phenob Im/Po) 1 each MISCELLANE ONCE PRN; Protocol PRN Reason: Consult order Pharmacy Consult (Consult Rx Vancomycin Dosing) 1 each MISCELLANE DAILY PRN PRN Reason: Consult order Phenobarbital (Phenobarbital 15 Mg Tablet) 45 mg PO BID [facility]; Protocol Stop: 02/12/23 21:01 Phenobarbital (Phenobarbital 15 Mg Tablet) 15 mg PO BID [facility]; Protocol Stop: 02/14/23 21:01 Phenobarbital (Phenobarbital 15 Mg Tablet) 15 mg PO DAILY [facility]; Protocol Stop: 02/16/23 09:01 Sodium Chloride (0.9 % Sodium Chloride Flush 3 Ml Syringe) 3 ml IVFLUSH QSHIFT [facility] Home Medications Medication Instructions Recorded Confirmed Last Taken Type buprenorphine 8 mg-naloxone 2 mg 2 film sublingual DAILY 08/10/20 02/10/23 Unknown History sublingual film (Suboxone) multivitamin 1 tab PO DAILY 09/05/21 02/10/23 Unknown History nicotine 21 mg/24 hr daily 21 mg transdermal DAILY PRN 02/10/23 02/10/23 Unknown History transdermal patch Nicotine Cravings Physical Exam Vital Signs and Narrative: Vital Signs: Last Vital Signs Temp 98.9 F 02/11/23 02:20 Pulse 94 02/11/23 04:48 Resp 16 02/11/23 04:48 BP 98/65 02/11/23 04:48 Pulse Ox 98 02/11/23 04:48 O2 Del Method Room Air 02/11/23 04:48 BMI result Body Mass Index 18.4 Const: Other: sitting in bed eating SL which, no complaint, no confusion alert oriented x3 General: cooperative and no acute distress Orientation/consciousness: patient oriented x3 Eyes: General: appearance normal, both eyes and all related structures Resp: Other: Scattered rhonchi Effort & Inspection: normal respiratory effort Cardio: Rate: regular rate Rhythm: regular rhythm GI: Palpation (GI): Soft to palpation Auscultation: normal bowel sounds Skin: General skin exam: no rashes or lesions noted Neuro: Other: No neurological deficits General: patient oriented x3 Cognition (Neuro): normal cognition Extrem: General: Yes normal to inspection and Yes no pedal edema Results Labs 02/10/23 18:40 02/10/23 18:40 Labs: Laboratory Results - last 24 hr 02/10/23 02/10/23 02/10/23 18:40 18:40 20:27 MCV 91.7 MCH 33.0 MCHC 36.0 RDW 11.5 Plt Count 221 D MPV 10.2 Immature Gran % (Auto) 1.3 H Neut % (Auto) 79.4 H Lymph % (Auto) 6.1 L Nance % (Auto) 11.9 H Eos % (Auto) 1.0 Baso % (Auto) 0.3 Lymph # (Auto) 0.6 L Nance # (Auto) 1.2 Eos # (Auto) 0.1 Baso # (Auto) 0.0 Abs Immat Gran (auto) 0.14 H Absolute Neuts (auto) 8.3 Absolute Nucleated RBC 0.000 Nucleated RBC % (auto) 0.0 Anion Gap 15 Estim Creat Clear Calc 28.9 Estimated GFR 26 Random Glucose 89 Lactic Acid Calcium 8.3 L Total Bilirubin 0.5 AST 36 ALT 20 Alkaline Phosphatase 188 H Total Creatine Kinase 64 Total Protein 7.4 Albumin 2.7 L Urine Color Yellow Urine Appearance Clear Urine pH 6.0 Ur Specific [place] <= 1.005 Urine Protein Negative Urine Glucose (UA) Negative Urine Ketones Negative Urine Blood Negative Urine Nitrite Negative Ur Leukocyte Esterase Negative Urine Osmolality Ur Random Sodium Ur Random Potassium Ur Random Chloride Urine Creatinine 02/10/23 02/10/23 02/11/23 20:27 20:27 00:06 MCV MCH MCHC RDW Plt Count MPV Immature Gran % (Auto) Neut % (Auto) Lymph % (Auto) Nance % (Auto) Eos % (Auto) Baso % (Auto) Lymph # (Auto) Nance # (Auto) Eos # (Auto) Baso # (Auto) Abs Immat Gran (auto) Absolute Neuts (auto) Absolute Nucleated RBC Nucleated RBC % (auto) Anion Gap Estim Creat Clear Calc Estimated GFR Random Glucose Lactic Acid 0.8 Calcium Total Bilirubin AST ALT Alkaline Phosphatase Total Creatine Kinase Total Protein Albumin Urine Color Urine Appearance Urine pH Ur Specific [place] Urine Protein Urine Glucose (UA) Urine Ketones Urine Blood Urine Nitrite Ur Leukocyte Esterase Urine Osmolality 102 L Ur Random Sodium < 20.0 Ur Random Potassium 10.7 Ur Random Chloride < 20.0 Urine Creatinine 23.98 Imaging Radiologist's Impressions: Impressions Elbow X-Ray 02/10/23 21:48 IMPRESSION: 1. No acute fractures or subluxation in the left shoulder, humerus or elbow. 2. Decreased acromiohumeral interval which could be seen with rotator cuff disease. 3. Partially imaged multifocal airspace opacities. Humerus X-Ray 02/10/23 21:48 IMPRESSION: 1. No acute fractures or subluxation in the left shoulder, humerus or elbow. 2. Decreased acromiohumeral interval which could be seen with rotator cuff disease. 3. Partially imaged multifocal airspace opacities. Shoulder X-Ray 02/10/23 21:48 IMPRESSION: 1. No acute fractures or subluxation in the left shoulder, humerus or elbow. 2. Decreased acromiohumeral interval which could be seen with rotator cuff disease. 3. Partially imaged multifocal airspace opacities. Abdomen/Pelvis CT 02/10/23 22:00 IMPRESSION: 1. The urinary bladder appears distended. 2. There is generalized anasarca. There is superimposed asymmetric focal subcutaneous edema within the left flank. 3. No acute or aggressive osseous abnormality is seen. Fleischner guidelines were followed. Cervical Spine CT 02/10/23 22:00 IMPRESSION: 1. No acute intracranial pathology. 2. There is paranasal sinusitis. EXAMINATION: CT CERVICAL SPINE WITHOUT CONTRAST CLINICAL INFORMATION: Pain. COMPARISON: None available. TECHNIQUE: Contiguous axial imaging was performed through the cervical spine without intravenous administration of contrast. Multiplanar reformatted images are submitted. This CT examination was performed using dose optimization techniques as appropriate, variously including the following: *Automated exposure control *Adjustment of mA and/or kV according to patient size (this includes techniques or standardized protocols for targeted exams where dose is matched to indication/reason for exam; i.e. extremities or head) *Use of iterative reconstruction technique DLP: As above FINDINGS: Vertebral body heights are normal. At C4-C5, there is a 2 mm retrolisthesis. At C5-C6, there is a 4 mm retrolisthesis. At C6-C7, there is moderate disc space narrowing, vacuum disc phenomenon. A moderately large Schmorl's node seen at the C7 vertebral endplate. The remaining disc spaces are well-maintained. No acute fracture or spondylolisthesis is seen. There is multi-level cervical spondylosis and facet arthropathy. The posterior elements are intact. There is no prevertebral soft tissue swelling. The dens is intact. The bilateral lung apices are clear. IMPRESSION: There is multi-level cervical degenerative disease, spondylosis and facet arthropathy. No acute fracture or spondylolisthesis is seen. Fleischner guidelines were followed. Head CT 02/10/23 22:00 IMPRESSION: 1. No acute intracranial pathology. 2. There is paranasal sinusitis. EXAMINATION: CT CERVICAL SPINE WITHOUT CONTRAST CLINICAL INFORMATION: Pain. COMPARISON: None available. TECHNIQUE: Contiguous axial imaging was performed through the cervical spine without intravenous administration of contrast. Multiplanar reformatted images are submitted. This CT examination was performed using dose optimization techniques as appropriate, variously including the following: *Automated exposure control *Adjustment of mA and/or kV according to patient size (this includes techniques or standardized protocols for targeted exams where dose is matched to indication/reason for exam; i.e. extremities or head) *Use of iterative reconstruction technique DLP: As above FINDINGS: Vertebral body heights are normal. At C4-C5, there is a 2 mm retrolisthesis. At C5-C6, there is a 4 mm retrolisthesis. At C6-C7, there is moderate disc space narrowing, vacuum disc phenomenon. A moderately large Schmorl's node seen at the C7 vertebral endplate. The remaining disc spaces are well-maintained. No acute fracture or spondylolisthesis is seen. There is multi-level cervical spondylosis and facet arthropathy. The posterior elements are intact. There is no prevertebral soft tissue swelling. The dens is intact. The bilateral lung apices are clear. IMPRESSION: There is multi-level cervical degenerative disease, spondylosis and facet arthropathy. No acute fracture or spondylolisthesis is seen. Fleischner guidelines were followed. Chest CT 02/10/23 22:05 IMPRESSION: 1. There are marked emphysematous changes. 2. There are persistent patchy bibasilar infiltrates and groundglass foci. These are seen in association with bilateral lower lobe small airway thickening and endobronchial occlusions. Again, these findings are likely infectious or inflammatory in etiology. Recommend radiographic follow-up to clearance. 3. Mildly enlarged mediastinal and probable bilateral hilar lymph nodes are noted. These are nonspecific and should be managed on a clinical basis. Recommend continued attention on imaging follow-up. 4. There are moderately severe coronary artery atherosclerotic calcifications. 5. Osseous structures are unremarkable. Fleischner guidelines were followed. Assessment and Plan (1) Acute hyponatremia: Status: Acute (2) Acute kidney insufficiency: Status: Acute (3) Dehydration: Status: Acute (4) Pneumonia: Status: Acute (5) Alcohol abuse with withdrawal: Status: Acute Plan 52-year-old male with past medical history of alcohol abuse, COPD, recently diagnosed progressive pneumonia comes into the hospital after leaving AMA with complaints of worsening cough # community-acquired pneumonia - will treat with IV antibiotics - likely has poor compliance patient was discharged with p.o. antibiotics in the past, but comes in with progressively worsening pneumonia - follow cultures # acute hyponatremia - likely secondary to hypovolemic hyponatremia - nephrology is consulted, recommended to start NS fluids - follow bmp #BREONNA/dehydration - IVF - follow bmp # Alcohol abuse with withdrawal - started on pehnobarb in ED- conitnue - supplement with folic and thiamine Hx of DVT: Continue Eliquis # COPD - No wheezing on exam - will place patient on DuoNeb p.r.n. this will scheduled Given patient's need for IV antibiotics in the setting of worsening progressively worsening pneumonia patient require minimum 2 night inpatient hospital stay for further management and monitoring Time Spent With Patient Time: Total time managing care of this patient today ____ minutes. Quality Stroke Does the patient have a stroke diagnosis?: No VTE Prior VTE?: No VTE Risk Level:: Medical - moderate - high VTE Device Contraindication: Treatment Not Indicated VTE Drug Contraindication: N/A - Med Ordered
[2023-02-11 06:18] LABS: Alanine Aminotransferase 13 U/L (0-40); Alkaline Phosphatase 148 U/L (39-117); Anion Gap 12 (12-20); Aspartate Amino Transferase 24 U/L (5-37); Bilirubin Total 0.4 mg/dL (0.0-1.0); Blood Urea Nitrogen 25 mg/dL (9-16); Calcium 7.4 mg/dL (8.4-10.2); Carbon Dioxide 20 mmol/L (22-29); Chloride 93 mmol/L (96-108); Creatinine Clr Calc Pharmacy 31.8; Estimated Glomerular Filt Rate 29; Glucose Random 115 mg/dL (60-115); Potassium 2.6 mmol/L (3.3-5.1); Sodium 122 mmol/L (135-145); Total Protein 5.6 g/dL (6.5-8.0)
[2023-02-11] MEDS: Lactated Ringers 1,000 ML 100 ML IVCONT (06:27)
--- NOTE | 2023-02-11 06:31 | MHC.EDTECH ---
Hourly rounds completed, vitals were taken, and Collins was emptied with 700cc of yellow urine.Call hernandez within reach
--- NOTE | 2023-02-11 07:07 | PHA.PROG ---
Admission Date/Time: February 11, 2023 00:18 Indication: RESPIRATORY Weight in k.5 kg Adjusted body weight in Kg: [place] body weight in Kg: Obesity Dosing Indication % IBW: Serum Creatinine - Last 168 Hours 02/10/23 02/11/23 18:40 05:14 Creatinine 2.60 H 2.36 H Estimated CrCl and GFR - Last 168 Hours 02/10/23 02/11/23 18:40 05:14 Estim Creat Clear Calc 28.9 31.8 Estimated GFR 26 29 Vancomycin Loading Dose: 1250 Current Vancomycin Dosing Regimen: 750 Q24 Vancomycin Monitoring using AUC goal of 400 - 600 range with trough as surrogate marker: 496 Date and Time for next Vancomycin Level to be drawn: 02/13 @2100 Pharmacist Comments on Vancomycin Plan: APPROPRIATE LOAD GIVEN OVERNIGHT IN EMERGENCY DEPARTMENT. INSIGHT SHOWS TROUGH OF 14.8 WITH 750 Q24 DOSING. EXPECTED TOXICITY OF 10%WITH THIS DOSING. WILL CONTINUE TO MONITOR SCR DAILY. AUC 423 EXPECTED WITH 2ND DOSE ACCORDING TO PK INSIGHT MODELING. Vancomycin dosing will take advantage of [employer] as a clinical decision support tool that uses Bayesian modeling to calculate individual patient's pharmacokinetic parameters and forecast the patient's drug concentration time course with the target goal AUC 24 range of 400 - 600 mg/L/hr.
[2023-02-11] MEDS: Nicotine 21 MG PATCH.TD24 TRANSDERMA (07:45)
[2023-02-11] MEDS: PHENobarbitaL 15 MG TABLET 45 MG PO ×2 (07:46→20:10)
[2023-02-11] MEDS: Buprenorphine/Naloxone 8/2 mg FILM 2 FILM SUBLINGUAL (07:46)
[2023-02-11] MEDS: Apixaban 5 MG TABLET PO ×2 (07:47→20:11)
[2023-02-11] MEDS: Multivitamin TABLET 1 TAB PO (07:47)
[2023-02-11] MEDS: Hydroxychloroquine Sulfate 200 MG TABLET PO ×2 (07:47→20:10)
[2023-02-11] MEDS: Folic Acid 1 MG TABLET PO (07:47)
[2023-02-11] MEDS: 0.9 % Sodium Chloride Flush 3 ML SYRINGE IVFLUSH ×2 (07:48→16:45)
--- NOTE | 2023-02-11 07:55 | PC.NURSE ---
PT IS A/O X 3 NO SOB/ODILIA NOTED SPEAKS IN FULL SENTENCES. PT HAS A LARGE PURPLE DISCOLORATION/BRUISING TO L SIDE. PT AWARE OF PLAN OF CARE FOR TRANSFER TO RM [id number]. RN TO RN REPORT GIVEN TO EVI.
--- NOTE | 2023-02-11 08:27 | MHC.CM.PN ---
CM met with Patient at bedside. 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 Patient obtains his Suboxone from [facility] in [place] and home/resume said services is the goal. CM has initiated and will follow for dc planning. PCP is Dr. Lizandro Teran.
[2023-02-11] MEDS: Potassium Chloride Packet 20 MEQ PACKET 40 MEQ PO (09:03)
[2023-02-11 09:41] LABS: Magnesium 1.6 mg/dL (1.6-2.6)
[2023-02-11] MEDS: Potassium Chloride/H20 10 MEQ/100 ML PIGGYBACK 100 MEQ IV ×4 (09:55→13:17)
[2023-02-11] MEDS: Albumin Human 25 % 100 ML IV ×3 (10:13→21:19)
--- NOTE | 2023-02-11 10:45 | P.CONNP_ITS ---
History of Present Illness Reason for Consult Consult date: 02/12/23 Reason for consult: hyponatremia Chief Complaint Chief complaint: hyponatrenia, pna History of Present Illness Narrative: 52-year-old male with COPD, alcohol use disorder, severe diffuse edema, chronic DVT on Eliquis, recently diagnosed worsening cavitary pneumonia comes into the hospital after leaving AMA on 820 stating worsening symptoms.? Of note patient was admitted on 818 after coming to the hospital with complaints of syncope.? Patient was found by his colleagues at work on the ground.? He was intoxicated, and found to have containing progressive pneumonia with cavitary in fluid within cyst.? At that time patient was admitted, started on broad-spectrum antibiotics, but left AMA. Patient returns today complaining of worsening cough, subjective fevers, chills.? Denies any chest pain, reports shortness of breath on exertion.? No a bdominal pain nausea or vomiting, no diarrhea constipation, no urinary symptoms and no lower extremity edema.? Admits to drinking lots of beer PMFSH Past Medical History Medical History AA (alcohol abuse) Abdominal hernia Alcohol use Anxiety Bilateral leg weakness Chronic deep vein thrombosis (DVT) of left lower extremity COPD (chronic obstructive pulmonary disease) Elevated LFTs Epidermal cyst History of substance abuse Pneumonia with cavity of lung Pulmonary emphysema Smoker Varicose veins of both lower extremities Family History Family History Father CVD (cardiovascular disease) Mother Rheumatoid arthritis Sister No problems noted. Maternal Uncle Prostate cancer Maternal Uncle Lung cancer Colon cancer Surgical History Surgical History History of laparoscopic cholecystectomy (~08/19/22) Social History Social History Household Members: Other Housing: House Housing Other:: with roomate Are you a primary hearing care professional to a significant other at home: No Do you presently have visiting nurse or other home services: No Alcohol intake: current Alcohol intake frequency: 3 or more drinks per day Alcohol type: beer Patient Tobacco Use Status: Current everyday Tobacco user Tobacco use type: Cigarette Cigarette Packs Per Day: 3 Cigarettes Per Day: 60.0 Years Smoked: 31 e-Cigarette/Vaping Use: Currently Using Second Hand Smoke Exposure: Yes service: No Current occupational status: employed Current occupation: rt hand / golf [employer] Cognitive needs: No Hearing needs: No Vision needs: Yes Meds Allergies Allergy/AdvReac Type Severity Reaction Status Date / Time Sulfa (Sulfonamide AdvReac Intermediate NAUSEA & Verified 02/10/23 18:40 Antibiotics) VOMITING [SULFA (SULFONAMIDE ANTIBIOTICS)] doxycycline AdvReac Mild Vomiting Verified 02/10/23 18:40 Active Medications: Current Medications Acetaminophen (Acetaminophen 325 Mg Tablet) 650 mg PO Q6H PRN PRN Reason: Pain, Mild (Pain Scale 1-3) Albuterol/Ipratropium (Albuterol/Iprat 2.5/0.5mg 3 Ml Ampul.Neb) 3 ml INHALE Q4H PRN PRN Reason: wheezing Apixaban (Apixaban 5 Mg Tablet) 5 mg PO BID [facility] Last Admin: 02/11/23 07:47 Dose: 5 mg Buprenorphine/Naloxone (Buprenorphine/Naloxone 8/2 Mg Film) 2 film SUBLINGUAL DAILY [facility] Last Admin: 02/11/23 07:46 Dose: 2 film Docusate Sodium (Docusate Sodium 100 Mg Capsule) 100 mg PO DAILY PRN PRN Reason: Constipation Folic Acid (Folic Acid 1 Mg Tablet) 1 mg PO DAILY [facility] Last Admin: 02/11/23 07:47 Dose: 1 mg Hydroxychloroquine Sulfate (Hydroxychloroquine Sulfate 200 Mg Tablet) 200 mg PO BID [facility] Last Admin: 02/11/23 07:47 Dose: 200 mg Sodium Chloride (Ns) 1,000 mls @ 100 mls/hr IVCONT .Q10H [facility] Last Admin: 02/11/23 09:05 Dose: 100 mls/hr Piperacillin Sod/Tazobactam (Sod 3.375 gm/ Sodium Chloride) 50 mls @ 100 mls/hr IV Q6H [facility] Last Infusion: 02/11/23 07:39 Dose: Infused Vancomycin HCl 750 mg/ Sodium (Chloride) 265 mls @ 265 mls/hr IV Q24H [facility] Potassium Chloride (Potassium Chloride/H20) 10 meq in 100 mls @ 100 mls/hr IV Q1H [facility] Stop: 02/11/23 12:29 Last Admin: 02/11/23 09:55 Dose: 100 mls/hr Albumin Human (Kedbumin 25 %) 100 mls @ 100 mls/hr IV Q6H [facility] Stop: 02/12/23 04:14 Last Admin: 02/11/23 10:13 Dose: 100 mls/hr Morphine Sulfate (Morphine Sulfate 4 Mg/Ml Cartridge) 4 mg IVPUSH Q4H PRN; Protocol PRN Reason: Pain, Severe (Pain Scale 7-10) Multivitamins/Vitamin C (Multivitamin Tablet) 1 tab PO DAILY [facility] Last Admin: 02/11/23 07:47 Dose: 1 tab Nicotine (Nicotine 21 Mg Patch.Td24) 21 mg TRANSDERMA DAILY [facility] Last Admin: 02/11/23 07:45 Dose: 21 mg Nicotine Polacrilex (Nicotine Polacrilex Lozenge 4 Mg Lozenge) 4 mg BUCCAL Q1H PRN PRN Reason: Nicotine Cravings Ondansetron HCl (Ondansetron Hcl 4 Mg/2 Ml Vial) 4 mg IVPUSH Q8H PRN PRN Reason: Nausea and Vomiting Pharmacy Consult (Consult Rx Etoh Phenob Im/Po) 1 each MISCELLANE ONCE PRN; Protocol PRN Reason: Consult order Pharmacy Consult (Consult Rx Vancomycin Dosing) 1 each MISCELLANE DAILY PRN PRN Reason: Consult order Phenobarbital (Phenobarbital 15 Mg Tablet) 45 mg PO BID [facility]; Protocol Stop: 02/12/23 21:01 Last Admin: 02/11/23 07:46 Dose: 45 mg Phenobarbital (Phenobarbital 15 Mg Tablet) 15 mg PO BID [facility]; Protocol Stop: 02/14/23 21:01 Phenobarbital (Phenobarbital 15 Mg Tablet) 15 mg PO DAILY [facility]; Protocol Stop: 02/16/23 09:01 Sodium Chloride (0.9 % Sodium Chloride Flush 3 Ml Syringe) 3 ml IVFLUSH QSHIFT [facility] Last Admin: 02/11/23 07:48 Dose: 3 ml Home Medications Medication Instructions Recorded Confirmed Last Taken Type buprenorphine 8 mg-naloxone 2 mg 2 film sublingual DAILY 08/10/20 02/10/23 Unknown History sublingual film (Suboxone) multivitamin 1 tab PO DAILY 09/05/21 02/10/23 Unknown History nicotine 21 mg/24 hr daily 21 mg transdermal DAILY PRN 02/10/23 02/10/23 Unknown History transdermal patch Nicotine Cravings Physical Exam Vital Signs: Last Vital Signs Temp 98.6 F 02/11/23 08:36 Pulse 100 02/11/23 08:36 Resp 20 02/11/23 08:36 BP 140/86 H 02/11/23 08:36 Pulse Ox 95 02/11/23 08:36 O2 Del Method Room Air 02/11/23 08:36 BMI result Body Mass Index 20.7 Comfortable Neck is supple Lung: Air entry equal Heart: S1,S2, normal. No rub Abd: Soft. BS + NS : Alert.No asterexis Ext: No edema Results Lab Results 02/10/23 18:40 02/11/23 05:14 Lab results: Chemistry 02/10/23 02/11/23 18:40 05:14 Sodium 119 L* 122 L Potassium 3.5 D 2.6 L D Carbon Dioxide 22 20 L BUN 25 H 25 H Creatinine 2.60 H 2.36 H Calcium 8.3 L 7.4 L D Hematology 02/10/23 18:40 WBC 10.4 Hgb 12.7 L Plt Count 221 D Urinalysis 02/10/23 20:27 Urine Color Yellow Urine Appearance Clear Urine pH 6.0 Ur Specific [place] <= 1.005 Urine Protein Negative Urine Glucose (UA) Negative Urine Ketones Negative Urine Blood Negative Urine Nitrite Negative Ur Leukocyte Esterase Negative Urine Studies 02/10/23 02/10/23 20:27 20:27 Urine Osmolality 102 L Urine Creatinine 23.98 Assessment and Plan (1) Acute hyponatremia: Status: Acute Plan Hyponatremia most likely due to excessive beer intake leading to beer potomania. Urine osmolality is low and he is appropriately excreting free water. I would allow him to correct hyponatremia spontaneously. Discontinue normal saline. No need for urea hypotonic saline. Monitor serum sodium every 2-4 hours to avoid rapid correction. Rapid co rrection can lead to osmotic demyelination especially in patients with alcohol abuse If serum sodium increases further I would start him on D5W to lower the rate of correction. We will follow along with the team. Time Spent With Patient Time: Total time managing care of this patient today ____ minutes. Procedures Date of Service Date of Service: 02/12/23
[2023-02-11 13:30] LABS: Anion Gap 13 (12-20); Blood Urea Nitrogen 25 mg/dL (9-16); Calcium 7.8 mg/dL (8.4-10.2); Carbon Dioxide 21 mmol/L (22-29); Chloride 96 mmol/L (96-108); Creatinine Clr Calc Pharmacy 34.6; Estimated Glomerular Filt Rate 28; Glucose Random 144 mg/dL (60-115); Potassium 3.5 mmol/L (3.3-5.1); Sodium 126 mmol/L (135-145)
--- NOTE | 2023-02-11 14:34 | HO.PM.IMPN ---
Subjective Subjective Date of Service: 02/11/23 Interval History: CAP,HYPONATREMIA Review of Systems Seems generalized weak, denies any episode of syncope Denies any chest pain or shortness of breath Physical Exam Vital Signs: Vital Signs: Last Vital Signs Temp 98.7 F 02/11/23 11:05 Pulse 90 02/11/23 11:05 Resp 20 02/11/23 11:05 BP 153/93 H 02/11/23 11:05 Pulse Ox 95 02/11/23 11:05 O2 Del Method Room Air 02/11/23 11:05 BMI result Body Mass Index 20.7 Appearance: Alert.? Oriented X3.? Generalizedweak.? cvs: rrr, [id number] . res: air entry diminshed at bases ,few rhonchii abd: no rebound or guarding ,nt, bs present. ext pulses present , no cyanosis . neuro: axo3 , nonfocal. Objective Data Active Medications Acetaminophen (Acetaminophen 325 Mg Tablet) 650 mg PO Q6H PRN PRN Reason: Pain, Mild (Pain Scale 1-3) Albuterol/Ipratropium (Albuterol/Iprat 2.5/0.5mg 3 Ml Ampul.Neb) 3 ml INHALE Q4H PRN PRN Reason: wheezing Apixaban (Apixaban 5 Mg Tablet) 5 mg PO BID [facility] Last Admin: 02/11/23 07:47 Dose: 5 mg Documented By: YAHAIRA Buprenorphine/Naloxone (Buprenorphine/Naloxone 8/2 Mg Film) 2 film SUBLINGUAL DAILY [facility] Last Admin: 02/11/23 07:46 Dose: 2 film Documented By: CATEOC Docusate Sodium (Docusate Sodium 100 Mg Capsule) 100 mg PO DAILY PRN PRN Reason: Constipation Folic Acid (Folic Acid 1 Mg Tablet) 1 mg PO DAILY [facility] Last Admin: 02/11/23 07:47 Dose: 1 mg Documented By: CATEOC Hydroxychloroquine Sulfate (Hydroxychloroquine Sulfate 200 Mg Tablet) 200 mg PO BID [facility] Last Admin: 02/11/23 07:47 Dose: 200 mg Documented By: SCOC Piperacillin Sod/Tazobactam (Sod 3.375 gm/ Sodium Chloride) 50 mls @ 100 mls/hr IV Q6H [facility] Last Infusion: 02/11/23 11:44 Dose: 0 mls/hr Documented By: MARCUS Vancomycin HCl 750 mg/ Sodium (Chloride) 265 mls @ 265 mls/hr IV Q24H [facility] Albumin Human (Kedbumin 25 %) 100 mls @ 100 mls/hr IV Q6H [facility] Stop: 02/12/23 04:14 Last Infusion: 02/11/23 11:29 Dose: 0 mls/hr Documented By: MARCUS Magnesium Oxide (Magnesium Oxide 400 Mg Tablet) 400 mg PO BIDPC [facility] Morphine Sulfate (Morphine Sulfate 4 Mg/Ml Cartridge) 4 mg IVPUSH Q4H PRN; Protocol PRN Reason: Pain, Severe (Pain Scale 7-10) Multivitamins/Vitamin C (Multivitamin Tablet) 1 tab PO DAILY [facility] Last Admin: 02/11/23 07:47 Dose: 1 tab Documented By: YAHAIRA Nicotine (Nicotine 21 Mg Patch.Td24) 21 mg TRANSDERMA DAILY [facility] Last Admin: 02/11/23 07:45 Dose: 21 mg Documented By: YAHAIRA Nicotine Polacrilex (Nicotine Polacrilex Lozenge 4 Mg Lozenge) 4 mg BUCCAL Q1H PRN PRN Reason: Nicotine Cravings Ondansetron HCl (Ondansetron Hcl 4 Mg/2 Ml Vial) 4 mg IVPUSH Q8H PRN PRN Reason: Nausea and Vomiting Pharmacy Consult (Consult Rx Etoh Phenob Im/Po) 1 each MISCELLANE ONCE PRN; Protocol PRN Reason: Consult order Pharmacy Consult (Consult Rx Vancomycin Dosing) 1 each MISCELLANE DAILY PRN PRN Reason: Consult order Phenobarbital (Phenobarbital 15 Mg Tablet) 45 mg PO BID [facility]; Protocol Stop: 02/12/23 21:01 Last Admin: 02/11/23 07:46 Dose: 45 mg Documented By: YAHAIRA Phenobarbital (Phenobarbital 15 Mg Tablet) 15 mg PO BID [facility]; Protocol Stop: 02/14/23 21:01 Phenobarbital (Phenobarbital 15 Mg Tablet) 15 mg PO DAILY [facility]; Protocol Stop: 02/16/23 09:01 Sodium Chloride (0.9 % Sodium Chloride Flush 3 Ml Syringe) [address] [facility] Last Admin: 02/11/23 07:48 Dose: 3 ml Documented By: YAHAIRA Labs 02/10/23 18:40 02/11/23 12:48 Labs: Laboratory Results - last 24 hr 02/10/23 02/10/23 02/10/23 18:40 18:40 20:27 MCV 91.7 MCH 33.0 MCHC 36.0 RDW 11.5 Plt Count 221 D MPV 10.2 Immature Gran % (Auto) 1.3 H Neut % (Auto) 79.4 H Lymph % (Auto) 6.1 L [place] % (Auto) 11.9 H Eos % (Auto) 1.0 Baso % (Auto) 0.3 Lymph # (Auto) 0.6 L [place] # (Auto) 1.2 Eos # (Auto) 0.1 Baso # (Auto) 0.0 Abs Immat Gran (auto) 0.14 H Absolute Neuts (auto) 8.3 Absolute Nucleated RBC 0.000 Nucleated RBC % (auto) 0.0 Anion Gap 15 Estim Creat Clear Calc 28.9 Estimated GFR 26 Random Glucose 89 Lactic Acid Calcium 8.3 L Magnesium Total Bilirubin 0.5 AST 36 ALT 20 Alkaline Phosphatase 188 H Total Creatine Kinase 64 Total Protein 7.4 Albumin 2.7 L Urine Color Yellow Urine Appearance Clear Urine pH 6.0 Ur Specific [place] <= 1.005 Urine Protein Negative Urine Glucose (UA) Negative Urine Ketones Negative Urine Blood Negative Urine Nitrite Negative Ur Leukocyte Esterase Negative Urine Osmolality Ur Random Sodium Ur Random Potassium Ur Random Chloride Urine Creatinine 02/10/23 02/10/23 02/11/23 20:27 20:27 00:06 MCV MCH MCHC RDW Plt Count MPV Immature Gran % (Auto) Neut % (Auto) Lymph % (Auto) [place] % (Auto) Eos % (Auto) Baso % (Auto) Lymph # (Auto) [place] # (Auto) Eos # (Auto) Baso # (Auto) Abs Immat Gran (auto) Absolute Neuts (auto) Absolute Nucleated RBC Nucleated RBC % (auto) Anion Gap Estim Creat Clear Calc Estimated GFR Random Glucose Lactic Acid 0.8 Calcium Magnesium Total Bilirubin AST ALT Alkaline Phosphatase Total Creatine Kinase Total Protein Albumin Urine Color Urine Appearance Urine pH Ur Specific [place] Urine Protein Urine Glucose (UA) Urine Ketones Urine Blood Urine Nitrite Ur Leukocyte Esterase Urine Osmolality 102 L Ur Random Sodium < 20.0 Ur Random Potassium 10.7 Ur Random Chloride < 20.0 Urine Creatinine 23.98 02/11/23 02/11/23 05:14 12:48 MCV MCH MCHC RDW Plt Count MPV Immature Gran % (Auto) Neut % (Auto) Lymph % (Auto) [place] % (Auto) Eos % (Auto) Baso % (Auto) Lymph # (Auto) [place] # (Auto) Eos # (Auto) Baso # (Auto) Abs Immat Gran (auto) Absolute Neuts (auto) Absolute Nucleated RBC Nucleated RBC % (auto) Anion Gap 12 13 Estim Creat Clear Calc 31.8 34.6 Estimated GFR 29 28 Random Glucose 115 144 H Lactic Acid Calcium 7.4 L D 7.8 L Magnesium 1.6 Total Bilirubin 0.4 AST 24 ALT 13 Alkaline Phosphatase 148 H Total Creatine Kinase Total Protein 5.6 L Albumin 2.0 L Urine Color Urine Appearance Urine pH Ur Specific [place] Urine Protein Urine Glucose (UA) Urine Ketones Urine Blood Urine Nitrite Ur Leukocyte Esterase Urine Osmolality Ur Random Sodium Ur Random Potassium Ur Random Chloride Urine Creatinine Assessment and Plan (1) Acute hyponatremia: Status: Acute (2) Alcohol withdrawal: Status: Acute (3) Acute kidney insufficiency: Status: Acute (4) Dehydration: Status: Acute (5) Pneumonia: Status: Acute (6) Hypokalemia: Status: Acute Assessment and Plan: 52-year-old male with past medical history of alcohol abuse, COPD, recently diagnosed progressive pneumonia comes into the hospital after leaving [place] with complaints of worsening cough community-acquired pneumonia - will treat with IV antibiotics - likely has poor compliance patient was discharged with p.o. antibiotics in the past, but comes in with progressively worsening pneumonia - follow cultures Id eval. acute hyponatremia- likely secondary to beer potomania sodium was 119 (02/10) , now 126 nephrology -hold ivf , moniter sodium closely moniter bmp closely BREONNA/dehydration hold iv fluid for now considering hyponatremia has owens -ct abd -urinary retention - follow bmp Alcohol abuse with withdrawal - started on pehnobarb in ED- conitnue - supplement with folic and thiamine Hx of DVT:? Continue Eliquis COPD - No wheezing on exam - will place patient on DuoNeb p.r.n. this will scheduled syncopal episode : multifactorial alcohol intoxication/multiple electrolytic abnormalities tele seems fine ct head neg echo 08/14-The left ventricular systolic function is normal.? The ? calculated ejection fraction is 64% by biplane method. ? - There is mild mitral valve regurgitation.? Hypokalemia: Added p.o. and IV potassium Ongoing hospitalization need: Pneumonia needs IV antibiotics in the setting of worsening progressively worsening pneumonia , blood culture pending. Hyponatremia: Need close monitoring of BMP , nephrology follow-up, in addition need potassium replacement for hypokalemia. Time Spent With Patient Time: Total time managing care of this patient today ____ minutes. Quality Stroke Does the patient have a stroke diagnosis?: No VTE Prior VTE?: No VTE Risk Level:: Medical - moderate - high VTE Device Contraindication: Treatment Not Indicated VTE Drug Contraindication: N/A - Med Ordered
[2023-02-11 16:21] LABS: Anion Gap 14 (12-20); Blood Urea Nitrogen 26 mg/dL (9-16); Carbon Dioxide 18 mmol/L (22-29); Chloride 99 mmol/L (96-108); Creatinine Clr Calc Pharmacy 36.1; Estimated Glomerular Filt Rate 29; Glucose Random 108 mg/dL (60-115); Potassium 3.8 mmol/L (3.3-5.1); Sodium 127 mmol/L (135-145)
--- NOTE | 2023-02-11 16:23 | P.CNID_ITS ---
History of Present Illness Data of Consult Service Date: 02/11/23 Requesting physician: Roc Syed Primary Care Provider: Lizandro Teran MD HPI Reason for consult: pneumonia concerns He presents with cough to ER and no fever. He is not on oxygen and has no requirements. He has GFR of 28,chronic. He has usual patchy bronchiectatic pattern CXR. Review of Systems Review of Systems: Yes all other systems are reviewed and are negative Respiratory: Respiratory: Reports cough PMFSH Past Medical History Medical History AA (alcohol abuse) Abdominal hernia Alcohol use Anxiety Bilateral leg weakness Chronic deep vein thrombosis (DVT) of left lower extremity COPD (chronic obstructive pulmonary disease) Elevated LFTs Epidermal cyst History of substance abuse Pneumonia with cavity of lung Pulmonary emphysema Smoker Varicose veins of both lower extremities Family History Family History Father CVD (cardiovascular disease) Mother Rheumatoid arthritis Sister No problems noted. Maternal Uncle Prostate cancer Maternal Uncle Lung cancer Colon cancer Family history: reviewed and not pertinent Surgical History Surgical History History of laparoscopic cholecystectomy (~08/19/22) Social History Social History Household Members: Other Housing: House Housing Other:: with roomate Are you a primary health care marketing manager to a significant other at home: No Do you presently have visiting nurse or other home services: No Alcohol intake: current Alcohol intake frequency: 3 or more drinks per day Alcohol type: beer Patient Tobacco Use Status: Current everyday Tobacco user Tobacco use type: Cigarette Cigarette Packs Per Day: 3 Cigarettes Per Day: 60.0 Years Smoked: 31 e-Cigarette/Vaping Use: Currently Using Second Hand Smoke Exposure: Yes service: No Current occupational status: employed Current occupation: rt hand / golf course Cognitive needs: No Hearing needs: No Vision needs: Yes Meds Allergies Allergy/AdvReac Type Severity Reaction Status Date / Time Sulfa (Sulfonamide AdvReac Intermediate NAUSEA & Verified 02/10/23 18:40 Antibiotics) VOMITING [SULFA (SULFONAMIDE ANTIBIOTICS)] doxycycline AdvReac Mild Vomiting Verified 02/10/23 18:40 Active Medications: Current Medications Acetaminophen (Acetaminophen 325 Mg Tablet) 650 mg PO Q6H PRN PRN Reason: Pain, Mild (Pain Scale 1-3) Albuterol/Ipratropium (Albuterol/Iprat 2.5/0.5mg 3 Ml Ampul.Neb) 3 ml INHALE Q4H PRN PRN Reason: wheezing Apixaban (Apixaban 5 Mg Tablet) 5 mg PO BID [facility] Last Admin: 02/11/23 07:47 Dose: 5 mg Buprenorphine/Naloxone (Buprenorphine/Naloxone 8/2 Mg Film) 2 film SUBLINGUAL DAILY [facility] Last Admin: 02/11/23 07:46 Dose: 2 film Docusate Sodium (Docusate Sodium 100 Mg Capsule) 100 mg PO DAILY PRN PRN Reason: Constipation Folic Acid (Folic Acid 1 Mg Tablet) 1 mg PO DAILY [facility] Last Admin: 02/11/23 07:47 Dose: 1 mg Hydroxychloroquine Sulfate (Hydroxychloroquine Sulfate 200 Mg Tablet) 200 mg PO BID [facility] Last Admin: 02/11/23 07:47 Dose: 200 mg Piperacillin Sod/Tazobactam (Sod 3.375 gm/ Sodium Chloride) 50 mls @ 100 mls/hr IV Q6H [facility] Last Infusion: 02/11/23 11:44 Dose: Infused Vancomycin HCl 750 mg/ Sodium (Chloride) 265 mls @ 265 mls/hr IV Q24H [facility] Albumin Human (Kedbumin 25 %) 100 mls @ 100 mls/hr IV Q6H [facility] Stop: 02/12/23 04:14 Last Admin: 02/11/23 15:42 Dose: 100 mls/hr Magnesium Oxide (Magnesium Oxide 400 Mg Tablet) [facility] Morphine Sulfate (Morphine Sulfate 4 Mg/Ml Cartridge) 4 mg IVPUSH Q4H PRN; Protocol PRN Reason: Pain, Severe (Pain Scale 7-10) Multivitamins/Vitamin C (Multivitamin Tablet) 1 tab PO DAILY [facility] Last Admin: 02/11/23 07:47 Dose: 1 tab Nicotine (Nicotine 21 Mg Patch.Td24) 21 mg TRANSDERMA DAILY [facility] Last Admin: 02/11/23 07:45 Dose: 21 mg Nicotine Polacrilex (Nicotine Polacrilex Lozenge 4 Mg Lozenge) 4 mg BUCCAL Q1H PRN PRN Reason: Nicotine Cravings Ondansetron HCl (Ondansetron Hcl 4 Mg/2 Ml Vial) 4 mg IVPUSH Q8H PRN PRN Reason: Nausea and Vomiting Pharmacy Consult (Consult Rx Etoh Phenob Im/Po) 1 each MISCELLANE ONCE PRN; Protocol PRN Reason: Consult order Pharmacy Consult (Consult Rx Vancomycin Dosing) 1 each MISCELLANE DAILY PRN PRN Reason: Consult order Phenobarbital (Phenobarbital 15 Mg Tablet) 45 mg PO BID [facility]; Protocol Stop: 02/12/23 21:01 Last Admin: 02/11/23 07:46 Dose: 45 mg Phenobarbital (Phenobarbital 15 Mg Tablet) 15 mg PO BID [facility]; Protocol Stop: 02/14/23 21:01 Phenobarbital (Phenobarbital 15 Mg Tablet) 15 mg PO DAILY [facility]; Protocol Stop: 02/16/23 09:01 Sodium Chloride (0.9 % Sodium Chloride Flush 3 Ml Syringe) 3 ml IVFLUSH QSHIFT [facility] Last Admin: 02/11/23 07:48 Dose: 3 ml Home Medications Medication Instructions Recorded Confirmed Last Taken Type buprenorphine 8 mg-naloxone 2 mg 2 film sublingual DAILY 08/10/20 02/10/23 Unknown History sublingual film (Suboxone) multivitamin 1 tab PO DAILY 09/05/21 02/10/23 Unknown History nicotine 21 mg/24 hr daily 21 mg transdermal DAILY PRN 02/10/23 02/10/23 Unknown History transdermal patch Nicotine Cravings Physical Exam Vital Signs: Vital Signs: Last Vital Signs Temp 98.0 F 02/11/23 15:50 Pulse 93 02/11/23 15:50 Resp 18 02/11/23 15:50 BP 148/94 H 02/11/23 15:50 Pulse Ox 97 02/11/23 15:50 O2 Del Method Room Air 02/11/23 15:50 BMI result Body Mass Index 20.7 Const: General: cooperative HEENT: Head: Yes normal to inspection Face and sinus: Yes normal facial exam Mouth: Normal oral and palatal mucosa present Teeth and gingiva: dentition normal Eyes: General: appearance normal, both eyes and all related structures Pupils: Equal, round and reactive pupils present Resp: Effort & Inspection: normal respiratory effort Cardio: Rate: regular rate Rhythm: regular rhythm GI: Palpation (GI): Soft to palpation and nontender : General: Yes no CVA tenderness Back/Spine/Pelvis: Back: no CVA tenderness Skin: General skin exam: no rashes or lesions noted Neuro: General: moves all extremities Cranial nerves: Yes Equal, round and reactive pupils present Extrem: General: Yes normal to inspection Psych: Appearance: grossly normal Results Labs 02/10/23 18:40 02/11/23 16:02 Labs: Short CBC 02/10/23 Range/Units 18:40 WBC 10.4 (4.8-10.8) X10*3/uL Hgb 12.7 L (14.0-18.0) g/dl Hct 35.3 L (42.0-52.0) % Plt Count 221 D (160-400) X10*3/uL BMP 02/10/23 02/11/23 02/11/23 18:40 05:14 12:48 Sodium 119 L* 122 L Cancelled Potassium 3.5 D 2.6 L D Chloride 86 L 93 L Carbon Dioxide 22 20 L BUN 25 H 25 H Creatinine 2.60 H 2.36 H Calcium 8.3 L 7.4 L D 02/11/23 02/11/23 12:48 16:02 Sodium 126 L 127 L Potassium 3.5 D 3.8 Chloride 96 99 Carbon Dioxide 21 L 18 L BUN 25 H 26 H Creatinine 2.44 H 2.34 H Calcium 7.8 L 8.0 L Cardiac Enzymes 02/10/23 Range/Units 18:40 Total Creatine Kinase 64 (38-174) U/L Liver Function 02/10/23 02/11/23 Range/Units 18:40 05:14 Total Bilirubin 0.5 0.4 (0.0-1.0) mg/dL AST 36 24 (5-37) U/L ALT 20 13 (0-40) U/L Alkaline Phosphatase 188 H 148 H (39-117) U/L Albumin 2.7 L 2.0 L (3.5-5.0) g/dL Urine 02/10/23 Range/Units 20:27 Urine Color Yellow Urine Appearance Clear Urine pH 6.0 (5.0-9.0) Ur Specific [place] <= 1.005 (1.005-1.025) Urine Protein Negative (Neg-Trace) mg/dL Urine Glucose (UA) Negative (Negative) mg/dL Assessment and Plan (1) Alcohol withdrawal: Status: Acute (2) Acute kidney insufficiency: Status: Acute (3) COPD (chronic obstructive pulmonary disease): Status: Acute He has no fever or oxygen requirements and CXR rather similar to past so most likely COPD exacerbation. Plan Levaquin po renal adjusted could be used. Consider check urine Legionella antigen. Time Spent With Patient Time: Total time managing care of this patient today ____ minutes.
[2023-02-11] MEDS: Magnesium Oxide 400 MG TABLET PO (16:45)
[2023-02-11] MEDS: levoFLOXacin 250 MG TABLET PO (18:02)
[2023-02-11 21:50] LABS: Anion Gap 12 (12-20); Blood Urea Nitrogen 25 mg/dL (9-16); Carbon Dioxide 21 mmol/L (22-29); Chloride 99 mmol/L (96-108); Creatinine Clr Calc Pharmacy 33.9; Estimated Glomerular Filt Rate 27; Glucose Random 103 mg/dL (60-115); Potassium 3.4 mmol/L (3.3-5.1); Sodium 129 mmol/L (135-145)
[2023-02-11] MEDS: Acetaminophen 325 MG TABLET 650 MG PO (22:17)
[2023-02-12] VITALS (7 sets, daily range): BP systolic 132–153; BP diastolic 76–88; PULSE 78–94; RESP 16–20; TEMP 36.3–37; O2SAT 93–98
[2023-02-12] MEDS: 0.9 % Sodium Chloride Flush 3 ML SYRINGE IVFLUSH ×4 (00:14→20:09)
[2023-02-12] MEDS: hydrOXYzine HCL 25 MG TABLET PO (02:00)
[2023-02-12] MEDS: Albumin Human 25 % 100 ML IV (02:50)
[2023-02-12] MEDS: Morphine Sulfate 4 MG/ML CARTRIDGE IVPUSH (02:50)
[2023-02-12 07:43] LABS: Anion Gap 13 (12-20); Blood Urea Nitrogen 22 mg/dL (9-16); Calcium 8.2 mg/dL (8.4-10.2); Carbon Dioxide 17 mmol/L (22-29); Chloride 103 mmol/L (96-108); Creatinine Clr Calc Pharmacy 35.8; Estimated Glomerular Filt Rate 29; Glucose Random 76 mg/dL (60-115); Potassium 3.3 mmol/L (3.3-5.1); Sodium 130 mmol/L (135-145)
[2023-02-12] MEDS: PHENobarbitaL 15 MG TABLET 45 MG PO ×2 (09:00→20:08)
[2023-02-12] MEDS: Hydroxychloroquine Sulfate 200 MG TABLET PO ×2 (09:01→20:09)
[2023-02-12] MEDS: Multivitamin TABLET 1 TAB PO (09:01)
[2023-02-12] MEDS: Nicotine 21 MG PATCH.TD24 TRANSDERMA (09:01)
[2023-02-12] MEDS: Apixaban 5 MG TABLET PO ×2 (09:01→20:09)
[2023-02-12] MEDS: Magnesium Oxide 400 MG TABLET PO ×2 (09:01→16:48)
[2023-02-12] MEDS: Folic Acid 1 MG TABLET PO (09:01)
[2023-02-12] MEDS: Potassium Chloride Packet 20 MEQ PACKET 40 MEQ PO (09:02)
[2023-02-12] MEDS: Buprenorphine/Naloxone 8/2 mg FILM 2 FILM SUBLINGUAL (09:03)
--- NOTE | 2023-02-12 10:00 | MHC.CLN ---
NUTRITION WEIGHT LOSS 24-33# REPORTED UPON ADMISSION. REVIEW OF WEIGHT HX X ONE YEAR SHOWS WEIGHT FLUCTUATION WITHOUT SIGNIFICANT CHANGE X ONE YEAR. CURRENT WEIGHT=69.2 KG. WEIGHT 02/06/22=68 KG. NO NEW NUTRITION INTERVENTIONS.
--- NOTE | 2023-02-12 10:18 | PM.PNNEP ---
Subjective Subjective Date of Service: 02/13/23 Interval history: CAP,HYPONATREMIA Physical Exam Vital Signs: Vital Signs: Last Vital Signs Temp 97.5 F 02/12/23 08:00 Pulse 84 02/12/23 08:00 Resp 16 02/12/23 08:00 BP 138/79 02/12/23 08:00 Pulse Ox 93 02/12/23 08:00 O2 Del Method Room Air 02/12/23 08:00 BMI result Body Mass Index 20.7 Const: General: no acute distress Resp: Effort & Inspection: normal respiratory effort GI: Palpation (GI): Soft to palpation Extrem: General: Yes no pedal edema Objective Data Labs 02/10/23 18:40 02/12/23 06:39 Labs: Laboratory Results - last 24 hr 02/11/23 02/11/23 02/11/23 12:48 12:48 16:02 Sodium Cancelled 126 L 127 L Potassium 3.5 D 3.8 Chloride 96 99 Carbon Dioxide 21 L 18 L Anion Gap 13 14 BUN 25 H 26 H Creatinine 2.44 H 2.34 H Estim Creat Clear Calc 34.6 36.1 Estimated GFR 28 29 Random Glucose 144 H 108 Calcium 7.8 L 8.0 L 02/11/23 02/12/23 21:17 06:39 Sodium 129 L 130 L Potassium 3.4 3.3 Chloride 99 103 Carbon Dioxide 21 L 17 L Anion Gap 12 13 BUN 25 H 22 H Creatinine 2.49 H 2.36 H Estim Creat Clear Calc 33.9 35.8 Estimated GFR 27 29 Random Glucose 103 76 Calcium 8.0 L 8.2 L Microbiology Microbiology Results: Microbiology 02/11/23 00:06 Blood - Venous Blood Culture - Preliminary No growth after 24 hours. 02/11/23 00:06 Blood - Venous Blood Culture - Preliminary No growth after 24 hours. Procedures Date of Service Date of Service: 02/13/23 Assessment & Plan Assessment and plan (1) Acute hyponatremia: Status: Acute Plan Hyponatremia most likely due to excessive beer intake leading to beer potomania. Urine osmolality is low and he is appropriately excreting free water. I would allow him to correct hyponatremia spontaneously. . No need for urea hypotonic saline. Monitor serum sodium every 12 hours to avoid rapid correction. BREONNA- Urine is bland No obstruction Possible ATN We will follow along with the team. Time Spent With Patient Time: Total time managing care of this patient today ____ minutes. Progress Note: Quality Stroke Does the patient have a stroke diagnosis?: No
[2023-02-12] MEDS: Thiamine HCL 200 MG in 0.9 % Sodium Chloride 100 ML 204 MG IV ×2 (11:27→22:42)
--- NOTE | 2023-02-12 13:51 | HO.PM.IMPN ---
Subjective Subjective Date of Service: 02/12/23 Interval History: HYPONATREMIA, PNEUMONIA, BREONNA. Review of Systems If shortness of breath somewhat improving, has dry cough. Also has some pleuritic discomfort. Poor oral intake-encouraged to take p.o. Physical Exam Vital Signs: Vital Signs: Last Vital Signs Temp 97.9 F 02/12/23 11:36 Pulse 94 02/12/23 11:36 Resp 18 02/12/23 11:36 BP 147/83 H 02/12/23 11:36 Pulse Ox 94 02/12/23 11:36 O2 Del Method Room Air 02/12/23 11:36 BMI result Body Mass Index 20.7 Appearance: Alert.? Oriented X3.? Generalizedweak.? cvs: rrr, [id number] . res: air entry diminshed at bases ,few rhonchii abd: no rebound or guarding ,nt, bs present. ext pulses present , no cyanosis . neuro: axo3 , nonfocal. Objective Data Active Medications Acetaminophen (Acetaminophen 325 Mg Tablet) 650 mg PO Q6H PRN PRN Reason: Pain, Mild (Pain Scale 1-3) Last Admin: 02/11/23 22:17 Dose: 650 mg Documented By: NAHED Albuterol/Ipratropium (Albuterol/Iprat 2.5/0.5mg 3 Ml Ampul.Neb) 3 ml INHALE Q4H PRN PRN Reason: wheezing Apixaban (Apixaban 5 Mg Tablet) 5 mg PO BID [facility] Last Admin: 02/12/23 09:01 Dose: 5 mg Documented By: DADA Buprenorphine/Naloxone (Buprenorphine/Naloxone 8/2 Mg Film) 2 film SUBLINGUAL DAILY [facility] Last Admin: 02/12/23 09:03 Dose: 2 film Documented By: DADA Docusate Sodium (Docusate Sodium 100 Mg Capsule) 100 mg PO DAILY PRN PRN Reason: Constipation Folic Acid (Folic Acid 1 Mg Tablet) 1 mg PO DAILY [facility] Last Admin: 02/12/23 09:01 Dose: 1 mg Documented By: DADA Hydroxychloroquine Sulfate (Hydroxychloroquine Sulfate 200 Mg Tablet) 200 mg PO BID [facility] Last Admin: 02/12/23 09:01 Dose: 200 mg Documented By: DADA Hydroxyzine HCl (Hydroxyzine Hcl 25 Mg Tablet) 25 mg PO Q6H PRN PRN Reason: anxiety/restlessness Last Admin: 02/12/23 02:00 Dose: 25 mg Documented By: DORIS Thiamine HCl 200 mg/ Sodium (Chloride) 102 mls @ 204 mls/hr IV Q12H [facility] Last Infusion: 02/12/23 11:57 Dose: 0 mls/hr Documented By: DADA Levofloxacin (Levofloxacin 250 Mg Tablet) 250 mg PO Q24H [facility] Last Admin: 02/11/23 18:02 Dose: 250 mg Documented By: NAHED Magnesium Oxide (Magnesium Oxide 400 Mg Tablet) 400 mg PO BIDPC [facility] Last Admin: 02/12/23 09:01 Dose: 400 mg Documented By: DADA Morphine Sulfate (Morphine Sulfate 4 Mg/Ml Cartridge) 4 mg IVPUSH Q4H PRN; Protocol PRN Reason: Pain, Severe (Pain Scale 7-10) Last Admin: 02/12/23 02:50 Dose: 4 mg Documented By: DORIS Multivitamins/Vitamin C (Multivitamin Tablet) 1 tab PO DAILY [facility] Last Admin: 02/12/23 09:01 Dose: 1 tab Documented By: DADA Nicotine (Nicotine 21 Mg Patch.Td24) 21 mg TRANSDERMA DAILY [facility] Last Admin: 02/12/23 09:01 Dose: 21 mg Documented By: DADA Nicotine Polacrilex (Nicotine Polacrilex Lozenge 4 Mg Lozenge) 4 mg BUCCAL Q1H PRN PRN Reason: Nicotine Cravings Nicotine Polacrilex (Nicotine Polacrilex 2 Mg Gum) 2 mg BUCCAL Q1H PRN PRN Reason: Nicotine Cravings Ondansetron HCl (Ondansetron Hcl 4 Mg/2 Ml Vial) 4 mg IVPUSH Q8H PRN PRN Reason: Nausea and Vomiting Pharmacy Consult (Consult Rx Etoh Phenob Im/Po) 1 each MISCELLANE ONCE PRN; Protocol PRN Reason: Consult order Phenobarbital (Phenobarbital 15 Mg Tablet) 45 mg PO BID [facility]; Protocol Stop: 02/12/23 21:01 Last Admin: 02/12/23 09:00 Dose: 45 mg Documented By: DADA Phenobarbital (Phenobarbital 15 Mg Tablet) 15 mg PO BID [facility]; Protocol Stop: 02/14/23 21:01 Phenobarbital (Phenobarbital 15 Mg Tablet) 15 mg PO DAILY [facility]; Protocol Stop: 02/16/23 09:01 Sodium Chloride (0.9 % Sodium Chloride Flush 3 Ml Syringe) 3 ml IVFLUSH QSHIFT [facility] Last Admin: 02/12/23 09:02 Dose: 3 ml Documented By: DADA Labs 02/10/23 18:40 02/12/23 06:39 Labs: Laboratory Results - last 24 hr 02/11/23 02/11/23 02/12/23 16:02 21:17 06:39 Anion Gap 14 12 13 Estim Creat Clear Calc 36.1 33.9 35.8 Estimated GFR 29 27 29 Random Glucose 108 103 76 Calcium 8.0 L 8.0 L 8.2 L Microbiology Microbiology Results: Microbiology 02/11/23 00:06 Blood Culture - Preliminary Blood - Venous No growth after 24 hours. 02/11/23 00:06 Blood Culture - Preliminary Blood - Venous No growth after 24 hours. Assessment and Plan (1) Acute hyponatremia: Status: Acute (2) Alcohol withdrawal: Status: Acute (3) Acute kidney insufficiency: Status: Acute (4) Dehydration: Status: Acute (5) Pneumonia: Status: Acute (6) Hypokalemia: Status: Acute Assessment and Plan: 52-year-old male with past medical history of alcohol abuse, COPD, recently diagnosed progressive pneumonia comes into the hospital after leaving AMA with complaints of worsening cough community-acquired pneumonia - will treat with IV antibiotics - likely has poor compliance patient was discharged with p.o. antibiotics in the past, but comes in with progressively worsening pneumonia blood cultures -neg@24hrs Id eval. acute hyponatremia- likely secondary to beer potomania sodium improving to 130 nephrology -hold ivf , moniter sodium closely moniter bmp closely BREONNA/dehydration hold iv fluid for now considering hyponatremia has owens -ct abd -urinary retention cr similar ot yesterday UA filomena, has Owens, ? Question ATN Encouraged for p.o. intake. Monitor BMP. Alcohol abuse with withdrawal - started on pehnobarb in ED- conitnue - supplement with folic and thiamine Hx of DVT:? Continue Eliquis COPD - No wheezing on exam - will place patient on DuoNeb p.r.n. this will scheduled syncopal episode : multifactorial alcohol intoxication/multiple electrolytic abnormalities tele seems fine ct head neg echo 08/14-The left ventricular systolic function is normal.? The ? calculated ejection fraction is 64% by biplane method. ? - There is mild mitral valve regurgitation.? Hypokalemia: repleted and resolved, Pt eval. Ongoing hospitalization need: Pneumonia needs IV antibiotics in the setting of worsening progressively worsening pneumonia , blood culture need to be negative @48hrs . Time Spent With Patient Time: Total time managing care of this patient today ____ minutes. Quality Stroke Does the patient have a stroke diagnosis?: No VTE Prior VTE?: No VTE Risk Level:: Medical - moderate - high VTE Device Contraindication: Treatment Not Indicated VTE Drug Contraindication: N/A - Med Ordered
[2023-02-12] MEDS: Acetaminophen 325 MG TABLET 650 MG PO (14:54)
[2023-02-12] MEDS: Lidocaine 4 % Patch ADH..PATCH 1 PATCH TRANSDERMA (14:54)
--- NOTE | 2023-02-12 15:31 | MHC.CM.PN ---
PT is recommending STR; Patient's choice of SNF will be limited R/T his Suboxone.CM will follow.
[2023-02-12] MEDS: levoFLOXacin 250 MG TABLET PO (16:45)
[2023-02-12] MEDS: Nicotine Polacrilex 2 MG GUM BUCCAL (20:08)
[2023-02-13] VITALS (7 sets, daily range): BP systolic 142–167; BP diastolic 80–95; PULSE 73–93; RESP 17–20; TEMP 36.4–37; O2SAT 93–99
[2023-02-13] MEDS: Morphine Sulfate 4 MG/ML CARTRIDGE IVPUSH ×2 (01:27→20:01)
[2023-02-13] MEDS: Acetaminophen 325 MG TABLET 650 MG PO ×2 (01:28→20:01)
[2023-02-13 07:11] LABS: Creatinine Clr Calc Pharmacy 37.7; Estimated Glomerular Filt Rate 31
[2023-02-13 08:04] LABS: Sodium 134 mmol/L (135-145)
[2023-02-13] MEDS: Apixaban 5 MG TABLET PO ×2 (09:17→20:01)
[2023-02-13] MEDS: Multivitamin TABLET 1 TAB PO (09:17)
[2023-02-13] MEDS: Thiamine HCL 200 MG in 0.9 % Sodium Chloride 100 ML 204 MG IV ×2 (09:17→22:22)
[2023-02-13] MEDS: Folic Acid 1 MG TABLET PO (09:17)
[2023-02-13] MEDS: Magnesium Oxide 400 MG TABLET PO ×2 (09:17→17:16)
[2023-02-13] MEDS: Buprenorphine/Naloxone 8/2 mg FILM 2 FILM SUBLINGUAL (09:17)
[2023-02-13] MEDS: Hydroxychloroquine Sulfate 200 MG TABLET PO ×2 (09:17→20:01)
[2023-02-13] MEDS: PHENobarbitaL 15 MG TABLET PO ×2 (09:17→22:18)
[2023-02-13] MEDS: Lidocaine 4 % Patch ADH..PATCH 1 PATCH TRANSDERMA (09:18)
[2023-02-13] MEDS: Nicotine 21 MG PATCH.TD24 TRANSDERMA (09:18)
[2023-02-13] MEDS: 0.9 % Sodium Chloride Flush 3 ML SYRINGE IVFLUSH ×3 (09:19→20:08)
[2023-02-13] MEDS: Docusate Sodium 100 MG CAPSULE PO (09:22)
--- NOTE | 2023-02-13 12:43 | HO.PM.IMPN ---
Subjective Subjective Date of Service: 02/14/23 Interval History: cap,shweta,hyponatremia Review of Systems sob and cough improving seems more mobile today encouraged for po intake Physical Exam Vital Signs: Vital Signs: Last Vital Signs Temp 98.1 F 02/13/23 11:12 Pulse 87 02/13/23 11:12 Resp 18 02/13/23 11:12 BP 142/87 H 02/13/23 11:12 Pulse Ox 98 02/13/23 11:12 O2 Del Method Room Air 02/13/23 11:12 BMI result Body Mass Index 20.7 Appearance: Alert.? Oriented X3.? Generalizedweak.? cvs: rrr, [id number] . res: air entry improving , no rales or wheezing abd: no rebound or guarding ,nt, bs present. ext pulses present , no cyanosis . neuro: axo3 , nonfocal. Objective Data Active Medications Acetaminophen (Acetaminophen 325 Mg Tablet) 650 mg PO Q6H PRN PRN Reason: Pain, Mild (Pain Scale 1-3) Last Admin: 02/13/23 01:28 Dose: 650 mg Documented By: RASHAD Albuterol/Ipratropium (Albuterol/Iprat 2.5/0.5mg 3 Ml Ampul.Neb) 3 ml INHALE Q4H PRN PRN Reason: wheezing Apixaban (Apixaban 5 Mg Tablet) 5 mg PO BID [facility] Last Admin: 02/13/23 09:17 Dose: 5 mg Documented By: DADA Buprenorphine/Naloxone (Buprenorphine/Naloxone 8/2 Mg Film) 2 film SUBLINGUAL DAILY [facility] Last Admin: 02/13/23 09:17 Dose: 2 film Documented By: DADA Docusate Sodium (Docusate Sodium 100 Mg Capsule) 100 mg PO DAILY PRN PRN Reason: Constipation Last Admin: 02/13/23 09:22 Dose: 100 mg Documented By: DADA Folic Acid (Folic Acid 1 Mg Tablet) 1 mg PO DAILY [facility] Last Admin: 02/13/23 09:17 Dose: 1 mg Documented By: DADA Hydroxychloroquine Sulfate (Hydroxychloroquine Sulfate 200 Mg Tablet) 200 mg PO BID [facility] Last Admin: 02/13/23 09:17 Dose: 200 mg Documented By: DADA Hydroxyzine HCl (Hydroxyzine Hcl 25 Mg Tablet) 25 mg PO Q6H PRN PRN Reason: anxiety/restlessness Last Admin: 02/12/23 02:00 Dose: 25 mg Documented By: DORIS Thiamine HCl 200 mg/ Sodium (Chloride) 102 mls @ 204 mls/hr IV Q12H [facility] Last Infusion: 02/13/23 10:03 Dose: 0 mls/hr Documented By: DADA Levofloxacin (Levofloxacin 250 Mg Tablet) 250 mg PO Q24H [facility] Last Admin: 02/12/23 16:45 Dose: 250 mg Documented By: DADA Lidocaine (Lidocaine 4 % Patch Adh..Patch) 1 patch TRANSDERMA DAILY [facility]; Protocol Last Admin: 02/13/23 09:18 Dose: 1 patch Documented By: DADA Magnesium Oxide (Magnesium Oxide 400 Mg Tablet) 400 mg PO BIDPC [facility] Last Admin: 02/13/23 09:17 Dose: 400 mg Documented By: DADA Morphine Sulfate (Morphine Sulfate 4 Mg/Ml Cartridge) 4 mg IVPUSH Q4H PRN; Protocol PRN Reason: Pain, Severe (Pain Scale 7-10) Last Admin: 02/13/23 01:27 Dose: 4 mg Documented By: RASHAD Multivitamins/Vitamin C (Multivitamin Tablet) 1 tab PO DAILY [facility] Last Admin: 02/13/23 09:17 Dose: 1 tab Documented By: DADA Nicotine (Nicotine 21 Mg Patch.Td24) 21 mg TRANSDERMA DAILY [facility] Last Admin: 02/13/23 09:18 Dose: 21 mg Documented By: DADA Nicotine Polacrilex (Nicotine Polacrilex Lozenge 4 Mg Lozenge) 4 mg BUCCAL Q1H PRN PRN Reason: Nicotine Cravings Nicotine Polacrilex (Nicotine Polacrilex 2 Mg Gum) 2 mg BUCCAL Q1H PRN PRN Reason: Nicotine Cravings Last Admin: 02/12/23 20:08 Dose: 2 mg Documented By: RASHAD Ondansetron HCl (Ondansetron Hcl 4 Mg/2 Ml Vial) 4 mg IVPUSH Q8H PRN PRN Reason: Nausea and Vomiting Pharmacy Consult (Consult Rx Etoh Phenob Im/Po) 1 each MISCELLANE ONCE PRN; Protocol PRN Reason: Consult order Phenobarbital (Phenobarbital 15 Mg Tablet) 15 mg PO BID [facility]; Protocol Stop: 02/14/23 21:01 Last Admin: 02/13/23 09:17 Dose: 15 mg Documented By: DADA Phenobarbital (Phenobarbital 15 Mg Tablet) 15 mg PO DAILY [facility]; Protocol Stop: 02/16/23 09:01 Sodium Chloride (0.9 % Sodium Chloride Flush 3 Ml Syringe) 3 ml IVFLUSH QSHIFT [facility] Last Admin: 02/13/23 09:19 Dose: 3 ml Documented By: DADA Labs 02/10/23 18:40 02/13/23 06:15 Labs: Laboratory Results - last 24 hr 02/13/23 06:15 Estim Creat Clear Calc 37.7 Estimated GFR 31 Microbiology Microbiology Results: Microbiology 02/11/23 00:06 Blood Culture - Preliminary Blood - Venous No growth after 48 hours. 02/11/23 00:06 Blood Culture - Preliminary Blood - Venous No growth after 48 hours. Assessment and Plan (1) Acute hyponatremia: Status: Acute (2) Acute kidney insufficiency: Status: Acute (3) Pneumonia: Status: Acute Plan 52-year-old male with past medical history of alcohol abuse, COPD, recently diagnosed progressive pneumonia comes into the hospital after leaving AMA with complaints of worsening cough ?community-acquired pneumonia likely has poor compliance patient was discharged with p.o. antibiotics in the past, but comes in with progressively worsening pneumonia blood cultures -neg@24hrs Id eval-on levaquin. ?acute hyponatremia- likely secondary to beer potomania sodium improving to 134 ?nephrology -hold ivf , moniter sodium closely moniter? bmp closely SHWETA/dehydration, also vanco levels 20.7 last admission ( he signed ama) hold iv fluid? for now considering hyponatremia has owens -ct abd -urinary retention cr similar? ot yesterday UA bland, has Owens, ?? Question ATN Encouraged for p.o. intake. Monitor BMP. ?Alcohol abuse with withdrawal - started on pehnobarb in ED- conitnue - supplement with folic and thiamine Hx of DVT:? Continue Eliquis ?COPD - No wheezing on exam - will place patient on DuoNeb p.r.n. this will scheduled syncopal episode : multifactorial alcohol intoxication/multiple electrolytic abnormalities tele seems fine ct head neg echo 08/14-The left ventricular systolic function is normal.? The ? calculated ejection fraction is 64% by biplane method. ? - There is mild mitral valve regurgitation.? Hypokalemia: repleted and resolved, Pt eval. Ongoing hospitalization need:? Pneumonia needs? IV antibiotics in the setting of worsening progressively worsening pneumonia , blood culture need to be negative @48hrs . Time Spent With Patient Time: Total time managing care of this patient today ____ minutes. Quality Stroke Does the patient have a stroke diagnosis?: No VTE Prior VTE?: No VTE Risk Level:: Medical - moderate - high VTE Device Contraindication: Treatment Not Indicated VTE Drug Contraindication: N/A - Med Ordered
--- NOTE | 2023-02-13 14:49 | MHC.CM.PN ---
EMR reviewed and per MD rounds, pt is not medically cleared for D/C due to awaiting negative blood cultures and continued need for IV abx. CM will continue to follow.
--- NOTE | 2023-02-13 14:59 | P.PNNP_ITS ---
Subjective Subjective Date of Service: 03/16/23 Interval history: cap,breonna,hyponatremia Physical Exam 2 Vital Signs: Vital Signs: Last Vital Signs Temp 98.1 F 02/13/23 11:12 Pulse 87 02/13/23 11:12 Resp 18 02/13/23 11:12 BP 142/87 H 02/13/23 11:12 Pulse Ox 98 02/13/23 11:12 O2 Del Method Room Air 02/13/23 11:12 BMI result Body Mass Index 20.7 Const: General: no acute distress Resp: Effort & Inspection: normal respiratory effort GI: Palpation (GI): Soft to palpation Extrem: General: Yes no pedal edema Objective Data Labs 02/10/23 18:40 02/14/23 05:42 Labs: Laboratory Results - last 24 hr 02/13/23 06:15 Sodium 134 L Creatinine 2.24 H Estim Creat Clear Calc 37.7 Estimated GFR 31 Microbiology Microbiology Results: Microbiology 02/11/23 00:06 Blood - Venous Blood Culture - Preliminary No growth after 48 hours. 02/11/23 00:06 Blood - Venous Blood Culture - Preliminary No growth after 48 hours. Procedures Date of Service Date of Service: 03/16/23 Assessment & Plan Assessment and plan (1) Acute hyponatremia: Status: Acute (2) Acute kidney insufficiency: Status: Acute Plan Hyponatremia most likely due to excessive beer intake leading to beer potomania. Urine osmolality is low and he is appropriately excreting free water. I would allow him to correct hyponatremia spontaneously. . No need for urea hypotonic saline. Monitor serum sodium every 12 hours to avoid rapid correction. BREONNA- Urine is bland No obstruction Possible ATN We will follow along with the team. Time Spent With Patient Time: Total time managing care of this patient today ____ minutes. Progress Note: Quality Stroke Does the patient have a stroke diagnosis?: No
[2023-02-13] MEDS: levoFLOXacin 250 MG TABLET PO (17:16)
[2023-02-13] MEDS: Nicotine Polacrilex 2 MG GUM BUCCAL (20:01)
[2023-02-13 21:45] LABS: Vancomycin Random 10.4 mcg/mL (15-20)
[2023-02-14 03:17] VITALS: BP 153/87; PULSE 71; RESP 18; TEMP 36.8; O2SAT 96
[2023-02-14] MEDS: Acetaminophen 325 MG TABLET 650 MG PO (04:52)
[2023-02-14] MEDS: Morphine Sulfate 4 MG/ML CARTRIDGE IVPUSH (04:52)
[2023-02-14 06:26] LABS: Creatinine Clr Calc Pharmacy 43.5; Estimated Glomerular Filt Rate 37
[2023-02-14 07:51] VITALS: BP 162/82; PULSE 108; RESP 20; TEMP 36.7; O2SAT 93
[2023-02-14] MEDS: Hydroxychloroquine Sulfate 200 MG TABLET PO (08:25)
[2023-02-14] MEDS: Folic Acid 1 MG TABLET PO (08:25)
[2023-02-14] MEDS: PHENobarbitaL 15 MG TABLET PO (08:25)
[2023-02-14] MEDS: Magnesium Oxide 400 MG TABLET PO (08:25)
[2023-02-14] MEDS: Nicotine 21 MG PATCH.TD24 TRANSDERMA (08:25)
[2023-02-14] MEDS: Apixaban 5 MG TABLET PO (08:25)
[2023-02-14] MEDS: Multivitamin TABLET 1 TAB PO (08:25)
[2023-02-14] MEDS: Buprenorphine/Naloxone 8/2 mg FILM 2 FILM SUBLINGUAL (08:25)
[2023-02-14] MEDS: Lidocaine 4 % Patch ADH..PATCH 1 PATCH TRANSDERMA (08:26)
[2023-02-14] MEDS: 0.9 % Sodium Chloride Flush 3 ML SYRINGE IVFLUSH (08:31)
[2023-02-14 10:39] VITALS: BP 162/82; PULSE 108; O2SAT 93
[2023-02-14 11:02] VITALS: BP 149/96; PULSE 88; RESP 20; TEMP 36.7; O2SAT 95
--- NOTE | 2023-02-14 11:49 | PM.DS ---
DS: Providers Provider Date of Service: 02/14/23 Date of admission: 02/11/23 00:18 Date of discharge: 02/14/23 Primary care physician: Lizandro Teran MD Consults: 02/11/23 08:26 Consult to Nephrology Routine Consulting Provider: Jorge Leavitt Reason for consultation: hyponatremia Has provider been notified: No 02/11/23 09:06 Consult to Infectious Diseases [place]ine [place] [facility] [place] [facility] [place] Reason for consultation: CAP Has provider been notified: No Attending physician on discharge: Roc Syed Discharging clinician: Roc Syed DS: Diagnosis Discharge Diagnosis (1) Acute hyponatremia: Status: Acute (2) Acute kidney insufficiency: Status: Acute (3) Pneumonia: Status: Acute DS: Summary Hospital Course Hospital Course: 52-year-old male with past medical history of COPD, alcohol use disorder, severe diffuse edema, chronic DVT on Eliquis, recently diagnosed worsening cavitary pneumonia comes into the hospital after leaving AMA on 820 stating worsening symptoms.? Of note patient was admitted on 818 after coming to the hospital with complaints of syncope.? Patient was found by his colleagues at work on the ground.? He was intoxicated, and found to have containing progressive pneumonia with cavitary in fluid within cyst.? At that time patient was admitted, started on broad-spectrum antibiotics, but left AMA. Patient returns today complaining of worsening cough, subjective fevers, chills.? Denies any chest pain, reports shortness of breath on exertion.? No abdominal pain nausea or vomiting, no diarrhea constipation, no urinary symptoms and no lower extremity edema.? On arrival to the ED patient hemodynamically stable with a slightly elevated heart rate that resolved Labs are significant for WBC count of 10.4, hemoglobin of 12.7, sodium of 119, chloride of 86, creatinine of 2.6 of, albumin of 2.7, urine osmolality of 102, random urine sodium of less than 20, potassium of 10.7, and urine creatinine of 23.98 Nephrology was consulted, patient started on IV fluids and IV antibiotics and will be admitted for further management. Hospital course: patient was admitted for pneumonia ,shweta,hyponatremia -started on iv antibiotics ,blood cultures sent , in addition hyponatremia and shweta possible related to beer potomania-hyponatremia improved with adequate po inatke and hydration, shweta also improving( last 1.9 ) .pneumonia and sob seems to be improved with antibiotics ,leucoccytosis imporved , no fevers ,blood cultures neg@48hrs . alcohol withdrawal improved with phenobarbiatl protocol,patient was strongly advised for abstain from alcohol. repeat chest imaging in 3-4 weeks with pcp to see resolution of pneumonia. possible htn with flactuating blood pressure( possible related to alcohol withdrawal, flactuating) -advised for life style modifications, to follow up outpatient with pcp acute renal failure -improving with adequate po inatke and hydration,moniter bmp outpatient. Patient declined for PT referral he wants to discuss with the his PCP for outpatient PT. plan: complete levquin 250 mg po daily for 7 days. repeat chest imaging in 3-4 weeks with pcp to see resolution of pneumonia. moniter bp and renal function outpatient. follow upwith pcp and nephrology outpatient. Above management discussed with the patient detail length he understand in agreement with the above plan, time spent 50 minute. Time Spent with Patient Time attestation: Total time managing care of this patient today ____ minutes. Discharge coordination time: Greater than 30 minutes Quality: Safe Use of Opioids Does Pt have an Active Cancer Diagnosis on the Problem List?: No Quality: Stroke Does the patient have a stroke diagnosis?: No Physical Exam Vital Signs: Vital Signs: Last Vital Signs Temp 98.1 F 02/14/23 11:02 Pulse 88 02/14/23 11:02 Resp 20 02/14/23 11:02 BP 149/96 H 02/14/23 11:02 Pulse Ox 95 02/14/23 11:02 O2 Del Method Room Air 02/14/23 11:02 BMI result Body Mass Index 20.7 Appearance: Alert.? Oriented X3.? Generalizedweak.? cvs: rrr, [id number] . res: air entry improving , no rales or wheezing abd: no rebound or guarding ,nt, bs present. skin-seems no erythema or edema or rash. ext pulses present , no cyanosis . neuro: axo3 , nonfocal. DS: Data Data Completed and Pending Completed studies during hospitalization [Text1]: Procedures Detoxification Services for Substance Abuse Treatment (02/06/23) Resection of Gallbladder, Percutaneous Endoscopic Approach (08/15/22) Labs on day of discharge: Laboratory Results - last 24 hr 02/13/23 02/14/23 21:19 05:42 Creatinine 1.94 H Estim Creat Clear Calc 43.5 Estimated GFR 37 Random Vancomycin 10.4 L Preliminary micro results at discharge 02/11/23 00:06 Blood Culture - Preliminary Blood - Venous No growth after 48 hours. 02/11/23 00:06 Blood Culture - Preliminary Blood - Venous No growth after 48 hours. Imaging Chest x-ray: Radiologist's impression: ITS Impressions Elbow X-Ray 02/10/23 21:48 IMPRESSION: 1. No acute fractures or subluxation in the left shoulder, humerus or elbow. 2. Decreased acromiohumeral interval which could be seen with rotator cuff disease. 3. Partially imaged multifocal airspace opacities. Humerus X-Ray 02/10/23 21:48 IMPRESSION: 1. No acute fractures or subluxation in the left shoulder, humerus or elbow. 2. Decreased acromiohumeral interval which could be seen with rotator cuff disease. 3. Partially imaged multifocal airspace opacities. Shoulder X-Ray 02/10/23 21:48 IMPRESSION: 1. No acute fractures or subluxation in the left shoulder, humerus or elbow. 2. Decreased acromiohumeral interval which could be seen with rotator cuff disease. 3. Partially imaged multifocal airspace opacities. Abdomen/Pelvis CT 02/10/23 22:00 IMPRESSION: 1. The urinary bladder appears distended. 2. There is generalized anasarca. There is superimposed asymmetric focal subcutaneous edema within the left flank. 3. No acute or aggressive osseous abnormality is seen. Fleischner guidelines were followed. Cervical Spine CT 02/10/23 22:00 IMPRESSION: 1. No acute intracranial pathology. 2. There is paranasal sinusitis. EXAMINATION: CT CERVICAL SPINE WITHOUT CONTRAST CLINICAL INFORMATION: Pain. COMPARISON: None available. TECHNIQUE: Contiguous axial imaging was performed through the cervical spine without intravenous administration of contrast. Multiplanar reformatted images are submitted. This CT examination was performed using dose optimization techniques as appropriate, variously including the following: *Automated exposure control *Adjustment of mA and/or kV according to patient size (this includes techniques or standardized protocols for targeted exams where dose is matched to indication/reason for exam; i.e. extremities or head) *Use of iterative reconstruction technique DLP: As above FINDINGS: Vertebral body heights are normal. At C4-C5, there is a 2 mm retrolisthesis. At C5-C6, there is a 4 mm retrolisthesis. At C6-C7, there is moderate disc space narrowing, vacuum disc phenomenon. A moderately large Schmorl's node seen at the C7 vertebral endplate. The remaining disc spaces are well-maintained. No acute fracture or spondylolisthesis is seen. There is multi-level cervical spondylosis and facet arthropathy. The posterior elements are intact. There is no prevertebral soft tissue swelling. The dens is intact. The bilateral lung apices are clear. IMPRESSION: There is multi-level cervical degenerative disease, spondylosis and facet arthropathy. No acute fracture or spondylolisthesis is seen. Fleischner guidelines were followed. Head CT 02/10/23 22:00 IMPRESSION: 1. No acute intracranial pathology. 2. There is paranasal sinusitis. EXAMINATION: CT CERVICAL SPINE WITHOUT CONTRAST CLINICAL INFORMATION: Pain. COMPARISON: None available. TECHNIQUE: Contiguous axial imaging was performed through the cervical spine without intravenous administration of contrast. Multiplanar reformatted images are submitted. This CT examination was performed using dose optimization techniques as appropriate, variously including the following: *Automated exposure control *Adjustment of mA and/or kV according to patient size (this includes techniques or standardized protocols for targeted exams where dose is matched to indication/reason for exam; i.e. extremities or head) *Use of iterative reconstruction technique DLP: As above FINDINGS: Vertebral body heights are normal. At C4-C5, there is a 2 mm retrolisthesis. At C5-C6, there is a 4 mm retrolisthesis. At C6-C7, there is moderate disc space narrowing, vacuum disc phenomenon. A moderately large Schmorl's node seen at the C7 vertebral endplate. The remaining disc spaces are well-maintained. No acute fracture or spondylolisthesis is seen. There is multi-level cervical spondylosis and facet arthropathy. The posterior elements are intact. There is no prevertebral soft tissue swelling. The dens is intact. The bilateral lung apices are clear. IMPRESSION: There is multi-level cervical degenerative disease, spondylosis and facet arthropathy. No acute fracture or spondylolisthesis is seen. Fleischner guidelines were followed. Chest CT 02/10/23 22:05 IMPRESSION: 1. There are marked emphysematous changes. 2. There are persistent patchy bibasilar infiltrates and groundglass foci. These are seen in association with bilateral lower lobe small airway thickening and endobronchial occlusions. Again, these findings are likely infectious or inflammatory in etiology. Recommend radiographic follow-up to clearance. 3. Mildly enlarged mediastinal and probable bilateral hilar lymph nodes are noted. These are nonspecific and should be managed on a clinical basis. Recommend continued attention on imaging follow-up. 4. There are moderately severe coronary artery atherosclerotic calcifications. 5. Osseous structures are unremarkable. Fleischner guidelines were followed. Discharge Plan Discharge Anticipated Discharge Date/Time: 02/14/23 09:54 Patient Disposition: Home Health Service Discharge Diagnosis: pneumonia ,shweta ,hyponatremia Referrals: Lizandro Teran MD [Primary Care Provider] - 1 Week Jorge Leavitt MD [Physician] - 1 Week (follow up outpatient) Discharge Medications: New levofloxacin 250 mg Tablet 250 mg PO Q24H Qty: 7 0RF (GIDEON) dion [facility] [place] See Rx Instructions .ROUTE .MEDSUPPLY Qty: 1 0RF Rx Instructions: As directed Continued hydroxychloroquine 200 mg tablet 200 mg PO BID Qty: 180 1RF prednisone 20 mg tablet 20 mg PO DAILY 30 Days Qty: 30 3RF Eliquis 5 mg tablet 5 mg PO BID 30 Days Qty: 60 5RF ipratropium-albuterol 0.5 mg-3 mg(2.5 mg base)/3 mL solution for nebulization 3 ml inhalation Q6-8H PRN (Reason: wheezing) 30 Days Qty: 180 6RF multivitamin Tablet 1 tab PO DAILY folic acid 1 mg Tablet 1 mg PO DAILY Qty: 30 0RF thiamine mononitrate (vit B1) 100 mg Tablet 100 mg PO DAILY Qty: 30 0RF nicotine 21 mg/24 hr patch 24 hour 21 mg transdermal DAILY PRN (Reason: Nicotine Cravings) buprenorphine-naloxone [Suboxone] 8-2 mg film 2 film sublingual DAILY albuterol sulfate 90 mcg/actuation HFA aerosol inhaler 2 puff inhalation Q4-6H PRN (Reason: shortness of breath or wheezing) 30 Days Qty: 1 6RF Discontinued levofloxacin 750 mg tablet 750 mg PO DAILY Qty: 10 0RF clindamycin HCl 300 mg capsule 600 mg PO Q8H Qty: 21 0RF Discharge Orders: Discharge Order (Routine); Ordered 02/14/23 Ordered By: Roc Syed Diet: Advance to usual diet Activity on Discharge: As tolerated Stand Alone Forms: Patient Portal Discharge page Other Ambulatory Orders: Basic Metabolic Panel Fasting (Routine) Timeframe: 3 Days Facility: [facility] - Location: Laboratory Ordered By: Roc Syed Care Plan Goals: patient was admitted for pneumonia ,shweta,hyponatremia -started on iv antibiotics ,blood cultures sent , in addition hyponatremia and shweta possible related to beer potomania-hyponatremia improved with adequate po inatke and hydration, shweta also improving( last 1.9 ) .pneumonia and sob seems to be improved with antibiotics ,leucoccytosis imporved , no fevers ,blood cultures neg@48hrs . repeat chest imaging in 3-4 weeks with pcp to see resolution of pneumonia alcohol withdrawal improved with phenobarbiatl protocol,patient was strongly advised for abstain from alcohol. possible htn with flactuating blood pressure( possible related to alcohol withdrawal, flactuating) -advised for life style modifications, to follow up outpatient with pcp acute renal failure -improving with adequate po inatke and hydration,moniter bmp outpatient. Patient declined for PT referral he wants to discuss with the his PCP for outpatient PT. Above management discussed with the patient detail length he understand in agreement with the above plan. Health Concerns: as above. Plan of Treatment: as above. Assessment: as above.
--- NOTE | 2023-02-17 13:51 | MHC.CM.PN ---
CM received a call from Patient who explains that he was dc'd over the past weekend and STR was thee recommendation. Patient chose to go home and now feels that he needs STR. CM suggested coming to the ED for assistance with placement and/or contacting PCP/Dr. Teran for guidance.
[2023-02-17 17:33] LABS: Strep Pneumo Ag urine Not Detected (Not Detected)
[2023-02-19 06:03] LABS: Legionella Ag Urine Not Detected (Not Detected)
== END 2023-02-14 12:59 | disposition home health service (06) | DRG 139 ==
LOC: HO.ED 23:58 → HO.EDOVER 02-11 00:27 → HO.IMC 02-11 07:23
PROVIDERS: Internal Medicine Hypertension Specialist; Physician Assistant; Admitting Provider Internal Medicine; Emergency Provider Emergency Medicine; PCP Internal Medicine; Visit Provider Internal Medicine
DX: J18.9 Pneumonia, unspecified organism (principal); N17.9 Acute kidney failure, unspecified; E87.1 Hypo-osmolality and hyponatremia; F17.210 Nicotine dependence, cigarettes, uncomplicated; J43.9 Emphysema, unspecified; E86.0 Dehydration; F10.139 Alcohol abuse with withdrawal, unspecified; E87.6 Hypokalemia; E86.1 Hypovolemia; F41.9 Anxiety disorder, unspecified; Z86.718 Personal history of other venous thrombosis and embolism; Z71.6 Tobacco abuse counseling; Z79.01 Long term (current) use of anticoagulants; Z79.52 Long term (current) use of systemic steroids; Z79.899 Other long term (current) drug therapy
CPT/HCPCS: 36415; 70450; 71250; 72125; 73030; 73060; 73070; 74176; 80048; 80053; 80202; 81003; 82436; 82550; 82565; 83605; 83735; 83935; 84133; 84295; 84300; 84484; 85025; 87040; 87449; 87899; 93005; 97116; 97162; 99285; C1758; J1650; J2270; J2543; J2560; J3371; J3411; P9047

== ENCOUNTER → 2023-02-11 00:18 | Outpatient (BNV) | payer OTHER, SELFPAY | PROVIDERS: Admitting Provider Internal Medicine; Emergency Provider Emergency Medicine; PCP Internal Medicine; Visit Provider Internal Medicine | DX: E87.1 Hypo-osmolality and hyponatremia (principal); N28.9 Disorder of kidney and ureter, unspecified; J18.9 Pneumonia, unspecified organism | CPT/HCPCS: 99223; 99232; 99239; 99499 ==

== ENCOUNTER → 2023-02-11 00:18 | Outpatient (BNV) | payer OTHER, SELFPAY | PROVIDERS: Admitting Provider Internal Medicine; Emergency Provider Emergency Medicine; PCP Internal Medicine; Visit Provider Internal Medicine | DX: F10.939 Alcohol use, unspecified with withdrawal, unspecified (principal); N28.9 Disorder of kidney and ureter, unspecified; J44.9 Chronic obstructive pulmonary disease, unspecified | CPT/HCPCS: 99222 ==

== ENCOUNTER 2023-02-27 14:03 | Outpatient (AMB) | payer OTHER, SELFPAY ==
--- NOTE | 2023-02-27 14:05 | MHC.PC.OV ---
Vital Signs 02/27/23 14:07 Height 6 ft Weight 137 lb 8 oz BMI 18.6 BP 110/70 Blood Pressure Location Lt brachial Position Sitting Pulse 91 Pulse Source Pulse Oximeter Pulse Oximetry (%) 97 Oxygen Delivery Method Room Air Intake Visit Reasons: need short term rehab?, rescheduled from 02/26 Intake Note: Patient is here today for left leg pain, swelling worse and hip pain, and right leg swelling requesting for PT for legs straighten Appellate Court Judge Required: No Interchange Agent: Not Required per policy Accompanied by: Self / Same As Patient Allergies Sulfa (Sulfonamide Antibiotics) [SULFA (SULFONAMIDE ANTIBIOTICS)] Adverse Reaction (Intermediate, Verified 02/27/23 14:07) NAUSEA & VOMITING doxycycline Adverse Reaction (Mild, Verified 02/27/23 14:07) Vomiting Tobacco use date assessed: 02/27/23 Dental Screening Dental Screen Date: 02/27/23 Did you have a dental visit in the last 12 months?: Yes Did you have a dental problem in the last 6 months where you did not have access to dental care?: No Was dental information given to patient?: Patient has dentist HPI HPI Comments History of Present Illness Details 52-year-old male past medical history significant for discoid lupus, pulmonary emphysema, DVT, substance abuse, anxiety, PAD ,ASVD, bilateral leg weakness, generalized weak, BREONNA and pneumonia. Patient presents today for short term rehab referral. Patient reports that he was admitted for pneumonia and was offered rehab however he declined at the time but now he feels he needs it. Discussed with patient that referral to short-term rehab from outpatient provider potentially not be covered by his insurance. Patient made aware that best course of action may be to present to the emergency room for placement into rehab. Patient verbalizes understanding. Can refer him to physical therapy for generalized weakness if he would like from outpatient setting, patient reports that he has already been referred and has plans to start her on 03/10/2023. During the course of this appointment patient has me to look at his left leg patient has bilateral lower extremity swelling, however left is greater than the right 3+ edema from the calf down warmth and pain. Patient made aware concern for DVT versus cellulitis from left posterior calf wound, patient reports that he was supposed [facility] however he missed his appointment from being admitted. Given patient is requesting placement to short-term rehab and unilateral lower extremity swelling with history DVT and concern for re-occurrence on anticoagulation, patient advised to seek emergency medical attention to R/O DVT and placement to STR. This LOCAL COMBINATION TRUCK DRIVER stressed the importance to seek emergency medical attention for above and patient made aware if he was not going to go to the emergency room to notify this LOCAL COMBINATION TRUCK DRIVER during this appointment so I can order appropriate stat ultrasound as an outpatient. Patient declined outpatient stat ultrasound states he will seek emergency medical attention. [facility] [place] and notified of and expect of above. COUNTS INCLUDE 234 BEDS AT THE [facility] Medical History AA (alcohol abuse) Abdominal hernia Alcohol use Anxiety Bilateral leg weakness Chronic deep vein thrombosis (DVT) of left lower extremity COPD (chronic obstructive pulmonary disease) Elevated LFTs Epidermal cyst History of substance abuse Pneumonia with cavity of lung Pulmonary emphysema Smoker Varicose veins of both lower extremities Surgical History History of laparoscopic cholecystectomy (~08/19/22) Family History Father CVD (cardiovascular disease) Mother Rheumatoid arthritis Sister No problems noted. Maternal Uncle Prostate cancer Maternal Uncle Lung cancer Colon cancer Social History (Updated 02/27/23 @ 14:14 by SHYAM Lucero) Household Members: Other Housing: House Housing Other:: with roomate Are you a primary cardiac care unit nurse to a significant other at home: No Do you presently have visiting nurse or other home services: No Alcohol intake: current Alcohol intake frequency: 3 or more drinks per day Alcohol type: beer Patient Tobacco Use Status: Current everyday Tobacco user Tobacco use type: Cigarette Cigarette Packs Per Day: 2 Cigarettes Per Day: 40.0 Years Smoked: 31 e-Cigarette/Vaping Use: Never Used Second Hand Smoke Exposure: Yes service: No Current occupational status: employed Current occupation: rt hand / golf course Cognitive needs: No Hearing needs: No Vision needs: Yes Questionnaire Thrive Questionnaire Date Thrive assessed: 02/11/23 ABHINAV-7 AMB Questionnaire ABHINAV-7 Date ABHINAV - 7 assessed: 12/22/22 Source: Developed by Drs. Francisco Acosta, Barbara Norris, Pedro Pablo Haider and colleagues, with an educational latrell from [email or web address]. Review of Systems Const Denies chills, Denies fatigue, Denies fever(s), Denies poor appetite, Reports weakness and Reports other (Leg swelling left more than the right ) Eyes Denies no additional complaints ENT Reports Normal hearing present Card Denies chest pain, Denies syncope, Denies rapid heart rate and Denies dyspnea Resp Denies cough and Denies dyspnea GI Denies change in stool character, Denies constipation, Denies diarrhea, Denies nausea and Denies vomiting Denies dysuria, Denies urinary frequency and Denies urinary urgency Neuro Reports Normal hearing present, Denies confusion, Denies syncope and Reports weakness Psych Denies confusion Endo Denies fatigue Physical exam (Primary Care) Vital Signs: Last Vital Signs Pulse 91 02/27/23 14:07 BP 110/70 02/27/23 14:07 Pulse Ox 97 02/27/23 14:07 Oxygen Delivery Method Room Air 02/27/23 14:07 BMI result Body Mass Index 18.6 Tobacco/Smoking Status: Tobacco use Status Tobacco use date assessed 02/27/23 02/27/23 14:15 Patient Tobacco Use Status Current everyday Tobacco 02/27/23 14:15 Tobacco use type Cigarette 02/27/23 14:15 e-Cigarette/Vaping Use Never Used 02/27/23 14:15 Thrive Assessment: Date of Thrive Assessment Date Thrive assessed 02/11/23 02/27/23 14:15 Const General: No confusion Orientation/consciousness: No confusion HENMT Head: Yes normocephalic and Yes atraumatic Eyes Conjunctivae: conjunctivae normal Chest Chest palpation & inspection: normal inspection of the chest Resp Effort & Inspection: normal respiratory effort Auscultation: clear to auscultation bilaterally, no crackles, no rhonchi and no wheezes Cardio Rate: regular rate Rhythm: regular rhythm Heart sounds: S1 normal heart sound present and S2 normal heart sound present Peripheral pulses: dorsalis pedis present GI Inspection: Yes normal to inspection Neuro General: No confusion Cranial nerves: Yes Normal hearing present Extrem Right lower extremity: ankle Details: swelling Left lower extremity: lower leg Details: erythema (and warmth) Location: of the mid lower leg, tenderness Location: of the posterior calf and localized swelling Location: of the mid lower leg (from calf down, 3+) Upper/lower leg/hip images: 1. 3x4 cm ulcerating appearing wound with mild surrounding eythema, no drainage noted 2. 2x2 cm circular wound with purulent scab covering it, no active drainage, erythema to left lower calf Assessment and Plan Assessment & Plan (1) Acute DVT (deep venous thrombosis): Code(s): I82.409 - Acute embolism and thrombosis of unspecified deep veins of unspecified lower extremity Plan: As noted in HPI patient refused outpatient stat ultrasound states he will seek emergency medical attention to rule out acute DVT versus left leg Cellulitis and for placement into STR. ER called and notified to expect patient. (2) Generalized weakness: Code(s): R53.1 - Weakness Plan: Patient advised to seek ordered which the medical attention for short-term rehab placement. Patient previously referred to outpatient physical therapy for generalized strength as planned started on 03/10/2023. (3) Bilateral leg ulcer: Code(s): L97.919 - Non-pressure chronic ulcer of unspecified part of right lower leg with unspecified severity; L97.929 - Non-pressure chronic ulcer of unspecified part of left lower leg with unspecified severity Qualifiers: Non-pressure ulcer stage: unspecified non-pressure ulcer stage Qualified Code(s): L97.919 - Non-pressure chronic ulcer of unspecified part of right lower leg with unspecified severity; L97.929 - Non-pressure chronic ulcer of unspecified part of left lower leg with unspecified severity Plan: Given patient states he will seek ER attention no antibiotics prescribed to cover for possible cellulitis. Coding Level of Care Code Est Pt Level 4 (11449) Diagnoses Acute DVT (deep venous thrombosis) I82.409 Generalized weakness R53.1 Ulcers of both lower extremities, unspecified ulcer stage L97.919; L97.929 Non-pressure ulcer stage: unspecified non-pressure ulcer stage
[2023-02-27 14:07] VITALS: BP 110/70; PULSE 91; O2SAT 97; BMI 18.6
== END 2023-02-27 15:03 | disposition home or self-care (01) ==
PROVIDERS: PCP Internal Medicine; Visit Provider Nurse Practitioner Family
DX: I82.409 Acute embolism and thrombosis of unspecified deep veins of unspecified lower extremity (principal); R53.1 Weakness; L97.919 Non-pressure chronic ulcer of unspecified part of right lower leg with unspecified severity; L97.929 Non-pressure chronic ulcer of unspecified part of left lower leg with unspecified severity
CPT/HCPCS: 99214

== ENCOUNTER 2023-03-09 16:14 | Outpatient (AMB) | payer OTHER, SELFPAY ==
--- NOTE | 2023-03-09 16:16 | A.OFFPC_ITS ---
Vital Signs 03/09/23 16:17 Height 6 ft Weight 140 lb 4 oz BMI 19.0 BP 124/82 Blood Pressure Location Lt brachial Position Sitting Pulse Source Pulse Oximeter Oxygen Delivery Method Room Air Intake Visit Reasons: [facility] for syncope and requesting rehab Rcp Required: No Accompanied by: Self / Same As Patient Allergies Sulfa (Sulfonamide Antibiotics) [SULFA (SULFONAMIDE ANTIBIOTICS)] Adverse Reaction (Intermediate, Verified 03/24/23 04:09) NAUSEA & VOMITING doxycycline Adverse Reaction (Mild, Verified 03/24/23 04:09) Vomiting Medication List - Last Reconciled 03/24/23 by Lizandro Teran MD albuterol sulfate 90 mcg/actuation 2 puffs inhalation Q4-6H PRN 30 days apixaban (Eliquis) 5 mg PO BID 30 days buprenorphine-naloxone 8-2 mg (Suboxone) 2 film sublingual DAILY folic acid 1 mg PO DAILY hydroxychloroquine 200 mg PO BID ipratropium-albuterol 0.5 mg-3 mg(2.5 mg base)/3 mL 3 mL inhalation Q6-8H PRN 30 days levofloxacin 250 mg PO Q24H multivitamin 1 tab PO DAILY nicotine 21 mg transdermal DAILY PRN prednisone 5 mg PO DAILY [SHOWER CHAIR As directed] thiamine mononitrate (vit B1) 100 mg PO DAILY walker As directed Tobacco use date assessed: 03/09/23 Dental Screening Dental Screen Date: 03/09/23 Did you have a dental visit in the last 12 months?: No Did you have a dental problem in the last 6 months where you did not have access to dental care?: No Was dental information given to patient?: No [place] [facility] [place] HPI Details Patient comes in today for his HDF follow up visit He was admitted to the hospital for a few days last month when he presented back to the hospital for recurrent syncopal episodes He was previously admitted for the same reason but he signed out AMA back on 02/08/2023 He was reportedly found on the ground by a colleague at work and was also reportedly intoxicated at the time Patient to the hospital afterwards with associated complaints of worsening cough, fever and chills Of note, he was recently diagnosed with worsening cavitary pneumonia and was undergoing treatment when he signed out AMA He was started back on IV fluids as well as add IV antibiotics and admitted for further management He was also started on phenobarbital protocol for his alcohol withdrawal and was discharged home in a few days when his condition improved and was continued on oral Levofloxacin 250 mg QD x 7 more days, which he states he completed He was offered a referral to short-term rehab prior to discharge which he declined as he preferred to look into outpatient physical therapy at the time States that he has not had any recurrence of his syncopal episode but continues to feel weak overall and would like to see if he can get a referral to physical therapy and rehab - is now considering and prefers inpatient rehab as he realizes that he is feeling very weak overall He denies any headaches but reports that he still experiences on and off dizziness He denies any chest pains, no increased shortness of breath No nausea /vomiting, no abdominal pain No change in bowel habits noted [facility] Medical History AA (alcohol abuse) Pneumonia with cavity of lung Elevated LFTs Chronic deep vein thrombosis (DVT) of left lower extremity Bilateral leg weakness Alcohol withdrawal Abnormal EKG Lung abscess Abdominal hernia Varicose veins of both lower extremities Alcohol use Smoker Anxiety Abscess of lung Bilateral pneumonia Deep vein thrombosis of left lower extremity COPD (chronic obstructive pulmonary disease) History of substance abuse Epidermal cyst Pulmonary emphysema Surgical History History of laparoscopic cholecystectomy (~08/19/22) Family History Father CVD (cardiovascular disease) Mother Rheumatoid arthritis Sister No problems noted. Maternal Uncle Prostate cancer Maternal Uncle Lung cancer Colon cancer Social History Household Members: Other Housing: House Housing Other:: with roomate Are you a primary floor care technician to a significant other at home: No Do you presently have visiting nurse or other home services: No Alcohol intake: current Alcohol intake frequency: 3 or more drinks per day Alcohol type: beer Patient Tobacco Use Status: Current everyday Tobacco user Tobacco use type: Cigarette Cigarette Packs Per Day: 2 Cigarettes Per Day: 40.0 Years Smoked: 31 e-Cigarette/Vaping Use: Never Used Second Hand Smoke Exposure: Yes service: No Current occupational status: employed Current occupation: rt hand / [employer] Cognitive needs: No Hearing needs: No Vision needs: Yes Questionnaire PHQ-9 Over the last 2 weeks, how often have you been bothered by any of the following problems? 1. Little interest or pleasure in doing things: not at all 2. Feeling down, depressed, or hopeless: not at all 3. Trouble falling or staying asleep, or sleeping too much: not at all 4. Feeling tired or having little energy: not at all 5. Poor appetite or overeating: not at all 6. Feeling bad about yourself - or that you are a failure or have let yourself or your family down: not at all 7. Trouble concentrating on things, such as reading the newspaper or watching television: not at all 8. Moving or speaking so slowly that other people could have noticed. Or the opposite - being so fidgety or restless that you have been moving around a lot more than usual: not at all 9. Thoughts that you would be better off or of hurting yourself in some way: not at all Total score: 0 Depression Screening Interpretation: Negative [id number] - PHQ-9 Billing: Yes Source: Developed by Drs. Francisco Acosta, Barbara Norris, Pedro Pablo Haider and colleagues, with an educational latrell from [employer]. Thrive Questionnaire Date Thrive assessed: 03/09/23 I am a: Patient What is your living situation today?: I have a steady place to live Within the past 12 months, did the food you bought not last and you didn't have the money to get more?: Never true Within the past 12 months, did you worry whether your food would run out before you got money to buy more?: Never true Do you have trouble paying for medicines?: No Do you have trouble getting transportation to medical appointments?: No Do you have trouble paying your heating and electricity bill?: No Do you have trouble taking care of your child, family member or friend?: No Do you have trouble with day-to-day activities such as bathing, preparing meals, shopping, managing finances, etc.?: No Are you currently unemployed and looking for a job?: No Are you interested in more education?: No Please select the resources that you would like help with: None Currently or been in a relationship where the following occur: no concerns reported AUDIT C Alcohol Use Questionnaire (AUDIT-C) 1. How often do you have a drink containing alcohol?: 4 or more times a week (drinks about 6 beers daily - quit drinking recently) 2. How many drinks containing alcohol do you have on a typical day when you are drinking?: 5 or 6 3. How often do you have six or more drinks on one occasion?: Daily or almost daily Total Score: 10 Score Reviewed/Action Taken: Yes (states that he has quit drinking recently) ABHINAV-7 AMB Questionnaire ABHINAV-7 Date ABHINAV - 7 assessed: 03/09/23 Feeling nervous, anxious, or on edge: 0 = Not at all Not being able to stop or control worryin = Not at all Worrying too much about different things: 0 = Not at all Trouble relaxin = Not at all Being so restless that it is hard to sit still: 0 = Not at all Becoming easily annoyed or irritable: 0 = Not at all Feeling afraid as if something awful might happen: 0 = Not at all Total ABHINAV-7 score (0-4 normal; 5-9 mild; 10-14 moderate; 15-21 severe): 0 Source: Developed by Drs. Francisco Acosta, Barbara Norris, Pedro Pablo Haider and colleagues, with an educational latrell from [employer]. Review of Systems Const Denies chills, Reports fatigue, Denies fever(s), Denies headache(s), Reports poor appetite and Reports weakness ENT Denies dysphagia, Reports dizziness (on and off), Denies otalgia, Denies headache(s), Denies odynophagia and Denies sore throat Card Denies chest pain, Denies palpitations and Reports dyspnea on exertion Resp Reports cough (on and off, coughs up thick whitish phlegm), Denies hemoptysis, Denies pain with cough, Reports dyspnea on exertion and Denies wheezing GI Denies abdominal pain, Denies hematochezia, Denies constipation, Denies dysphagia, Denies heartburn, Reports diarrhea (on and off), Reports loose stools, Denies nausea, Denies odynophagia and Denies vomiting Denies hematuria, Denies dysuria, Reports urinary frequency and Reports urinary hesitancy Musc Reports arthralgias (involving multiple joints) and Reports stiffness Skin/Breast Details: skin breaks and bleeds very easily; has small wounds on his forearms and hands that keeps oozing blood on and off; (+) open, non-draining superficial ulcer-s- on both lower legs Neuro Reports dizziness (on and off), Denies headache(s) and Reports weakness Endo Reports fatigue and Denies palpitations Aller/Immun Denies wheezing Physical exam (Primary Care) Vital Signs: Last Vital Signs BP 124/82 03/09/23 16:17 Oxygen Delivery Method Room Air 03/09/23 16:17 BMI result Body Mass Index 19.0 Tobacco/Smoking Status: Tobacco use Status Tobacco use date assessed 03/09/23 03/09/23 16:21 Patient Tobacco Use Status Current everyday Tobacco 03/09/23 16:21 Tobacco use type Cigarette 03/09/23 16:21 e-Cigarette/Vaping Use Never Used 03/09/23 16:21 PHQ-9: PHQ-9 Score PHQ-9: Total score 0 03/09/23 17:01 Depression Screening Interpretation: Negative Thrive Assessment: Date of Thrive Assessment Date Thrive assessed 03/09/23 03/09/23 16:21 Currently or been in a relationship where the following occur: no concerns reported Const General: no acute distress and alert HENMT Ears: TM's normal bilaterally and EAC's normal Throat: Yes posterior oropharynx normal and Yes tonsils normal Neck Neck: Yes no lymphadenopathy and Yes supple Resp Auscultation: no crackles, no rales, rhonchi (scattered) throughout, no wheezes and diminished lung sounds (slightly) bilateral Cardio Rate: regular rate Rhythm: regular rhythm Heart sounds: no murmurs GI Palpation (GI): Soft to palpation, nontender and no guarding Auscultation: normal bowel sounds General: Yes no CVA tenderness Back/Spine/Pelvis Back: no CVA tenderness Skin Other: (+) multiple/scattered bruising on skin; friable skin with on and off oozing of blood noted from small breaks on his skin on both arms; (+) non-draining, open, superficial ulcers on both lower legs Extrem Other: (+) prominent varicosities noted over both lower legs, with (+) non-draining chronic ulcers noted bilaterally General: No clubbing, No cyanosis and Yes pedal edema (1+ bilaterally) Assessment and Plan Assessment & Plan (1) Pneumonia: Code(s): J18.9 - Pneumonia, unspecified organism Qualifiers: Pneumonia type: due to unspecified organism Laterality: unspecified laterality Lung location: unspecified part of lung Qualified Code(s): J18.9 - Pneumonia, unspecified organism Plan: Resolving - S/P Abx Tx Will repeat chest x-rays for follow up to ensure resolution when patient returns for his scheduled visit next month (2) Lung abscess: Code(s): J85.2 - Abscess of lung without pneumonia Qualifiers: Pulmonary abscess pneumonia presence: without pneumonia Laterality: unspecified laterality Qualified Code(s): J85.2 - Abscess of lung without pneumonia Plan: S/P suppressive Tx with Augmentin 875 mg BID x 3 months, which patient completed at the end of November [address] done a few months ago revealed severe emphysema with increasing airspace disease in the right middle lobe suggestive of worsening pneumonia at the time. There is continued slight interval decrease in fluid component on the right, otherwise stable cavitary lesions in the right lower lobe and left lower lobe and severe airway disease in the right middle and bilateral lower lobes. Stable mediastinal lymphadenopathy is noted as well. Follow up with pulmonary as scheduled (3) Pulmonary emphysema: Code(s): J43.9 - Emphysema, unspecified Qualifiers: Emphysema type: unspecified Qualified Code(s): J43.9 - Emphysema, unspecified Plan: Continue Albuterol HFA 2 inhalations every 6 hours PRN and oral Prednisone 5 mg QD Follow up with pulmonary as scheduled (4) Acute kidney insufficiency: Code(s): N28.9 - Disorder of kidney and ureter, unspecified Plan: Patient's GFR and renal function appears to have improved slightly and stabilized upon his discharge from the hospital a few weeks ago He remains in stage 3 CKD and will need to continue having his renal function monitored closely (5) Generalized weakness: Code(s): R53.1 - Weakness Plan: Patient states that he continues to feel very weak overall and has had a few times wherein he thinks he was going to pass out from severe weakness Per request, [facility] for [facility]-term inpatient rehab and physical therapy Per request, will also provide patient with Rx for a shower chair to help minimize injuries/fall while he is in the shower in his current weakened state (6) Chronic deep vein thrombosis (DVT) of left lower extremity: Comment: Initially diagnosed in June 2021 Code(s): I82.502 - Chronic embolism and thrombosis of unspecified deep veins of left lower extremity Qualifiers: Affected thrombotic vein of extremity: femoral Qualified Code(s): I82.512 - Chronic embolism and thrombosis of left femoral vein Plan: Repeat venous doppler done in November 2022 showed the persistence of his LLE DVT that is mostly unchanged from his previous venous doppler done a year ago in November 2021 Continue Eliquis 5 mg BID - dose was increased back up from 2.5 mg to 5 mg upon the recommendation of vascular surgery Follow up with vascular surgery as scheduled (7) Discoid lupus erythematosus: Code(s): L93.0 - Discoid lupus erythematosus Plan: Continue Plaquenil 200 mg BID and Prednisone 5 mg QD Will need yearly eye exam Wass not started on immunosuppressive DMARDs due to his chronic lung abscess Follow up with dermatology (Dr. Blood) and with rheumatology (Dr. Weston) as scheduled (8) History of substance abuse: Code(s): F19.11 - Other psychoactive substance abuse, in remission Plan: Continue Suboxone 8-2 mg film QD Follow up with the Suboxone clinic as scheduled (9) Smoker: Code(s): F17.200 - Nicotine dependence, unspecified, uncomplicated Plan: Counseled again on smoking cessation Continue Nicotine patches to help him quit smoking (10) Alcohol use: Code(s): Z72.89 - Other problems related to lifestyle Plan: Patient states that he stopped drinking recently Counseled again on continuing abstinence Plan Follow up as scheduled next month Orders: Referrals Physical Medicine and Rehabilitation Referral R29.898 - Other symptoms and signs involving the musculoskeletal system, L97.919 - Non-pressure chronic ulcer of unspecified part of right lower leg with unspecified severity, L97.929 - Non- pressure chronic ulcer of unspecified part of left lower leg with unspecified severity Medications: New [SHOWER CHAIR] As directed 1 ea 0RF R29.898 - Other symptoms and signs involving the musculoskeletal system, L97.919 - Non-pressure chronic ulcer of unspecified part of right lower leg with unspecified severity, L97.929 - Non-pressure chronic ulcer of unspecified part of left lower leg with unspecified severity [SHOWER CHAIR] As directed 1 ea 0RF R29.898 - Other symptoms and signs involving the musculoskeletal system, L97.919 - Non-pressure chronic ulcer of unspecified part of right lower leg with unspecified severity, L97.929 - Non-pressure chronic ulcer of unspecified part of left lower leg with unspecified severity Coding Level of Care Code Est Pt Level 4 (52148) Diagnoses Pneumonia due to infectious organism, unspecified laterality, unspecified part of lung J18.9 Pneumonia type: due to unspecified organism Laterality: unspecified laterality Lung location: unspecified part of lung Abscess of lung without pneumonia, unspecified laterality J85.2 Pulmonary abscess pneumonia presence: without pneumonia Laterality: unspecified laterality Pulmonary emphysema, unspecified emphysema type J43.9 Emphysema type: unspecified Acute kidney insufficiency N28.9 Generalized weakness R53.1 Chronic deep vein thrombosis (DVT) of femoral vein of left lower extremity I82.512 Affected thrombotic vein of extremity: femoral Discoid lupus erythematosus L93.0 History of substance abuse F19.11 Smoker F17.200 Alcohol use Z72.89
[2023-03-09 16:17] VITALS: BP 124/82; BMI 19.0
== END 2023-03-09 17:01 | disposition home or self-care (01) ==
PROVIDERS: PCP Internal Medicine; Visit Provider Internal Medicine
DX: J85.2 Abscess of lung without pneumonia (principal); J43.9 Emphysema, unspecified; I82.512 Chronic embolism and thrombosis of left femoral vein; F19.11 Other psychoactive substance abuse, in remission; J18.9 Pneumonia, unspecified organism; N28.9 Disorder of kidney and ureter, unspecified; R53.1 Weakness; L93.0 Discoid lupus erythematosus; F17.210 Nicotine dependence, cigarettes, uncomplicated; Z72.89 Other problems related to lifestyle
CPT/HCPCS: 99214

== ENCOUNTER 2023-04-06 17:12 | Outpatient (AMB) | payer OTHER, SELFPAY ==
--- NOTE | 2023-04-06 17:13 | A.OFFPC_ITS ---
Vital Signs 04/06/23 17:14 Height 6 ft Weight 132 lb 4 oz BMI 17.9 BP 124/80 Blood Pressure Location Lt brachial Position Sitting Pulse 97 Pulse Source Pulse Oximeter Pulse Oximetry (%) 106 H Oxygen Delivery Method Room Air Intake Visit Reasons: 3 month f/u Principal Biostatistician Required: No Accompanied by: Self / Same As Patient Allergies Sulfa (Sulfonamide Antibiotics) [SULFA (SULFONAMIDE ANTIBIOTICS)] Adverse Reaction (Intermediate, Verified 07/01/23 17:33) NAUSEA & VOMITING doxycycline Adverse Reaction (Mild, Verified 07/01/23 17:33) Vomiting Medication List - Last Reconciled 07/13/23 by Lizandro Teran MD albuterol sulfate 90 mcg/actuation 2 puffs inhalation Q4-6H PRN 30 days apixaban (Eliquis) 5 mg PO BID 30 days buprenorphine-naloxone 8-2 mg (Suboxone) 2 film sublingual DAILY hydroxychloroquine 200 mg PO BID ipratropium-albuterol 0.5 mg-3 mg(2.5 mg base)/3 mL 3 mL inhalation Q6-8H PRN 30 days levofloxacin 500 mg PO DAILY multivitamin 1 tab PO DAILY omeprazole 20 mg PO DAILY prednisone 5 mg PO DAILY [SHOWER CHAIR As directed] tobramycin 0.3% 2 drps ophthalmic (eye) Q4H walker As directed Tobacco use date assessed: 04/06/23 Dental Screening Dental Screen Date: 04/06/23 Did you have a dental visit in the last 12 months?: No Did you have a dental problem in the last 6 months where you did not have access to dental care?: No Was dental information given to patient?: No HPI 3 month f/u HPI Details Patient comes in today for his follow up visit States that he currently feels okay His previous wounds on his forearms and superficial ulcers on his legs have all cleared up/healed up recently; still has some bruising but states that these have also been improving He is planning to move and relocate down to [place], hopefully soon He denies any headaches; still has occasional dizziness but states that this is gradually improving Denies any chest pains, no increased SOB No nausea/vomiting, no abdominal pain No change in bowel habits noted - still has on and off diarrhea and loose stools; denies seeing any blood in his stool States that he saw Dr. Blood a couple of months ago but is not sure if Dr. Blood noticed the lesion on his left thigh States that he will check the report he received from them He has not had any follow up labs done in over a year now [facility] Medical History (Updated 07/13/23 @ 02:08 by Lizandro Teran MD) Chronic kidney disease, stage III (moderate) AA (alcohol abuse) Pneumonia with cavity of lung Elevated LFTs Chronic deep vein thrombosis (DVT) of left lower extremity Bilateral leg weakness Alcohol withdrawal Abnormal EKG Lung abscess Abdominal hernia Varicose veins of both lower extremities Alcohol use Smoker Anxiety Abscess of lung Bilateral pneumonia Deep vein thrombosis of left lower extremity COPD (chronic obstructive pulmonary disease) History of substance abuse Epidermal cyst Pulmonary emphysema Surgical History History of laparoscopic cholecystectomy (~08/19/22) Family History Father CVD (cardiovascular disease) Mother Rheumatoid arthritis Sister No problems noted. Maternal Uncle Prostate cancer Maternal Uncle Lung cancer Colon cancer Social History Household Members: Other Housing: House Housing Other:: with roomate Are you a primary career education teacher to a significant other at home: No Do you presently have visiting nurse or other home services: No Alcohol intake: current Alcohol intake frequency: 3 or more drinks per day Alcohol type: beer Comment: patent refusing all alarms Patient Tobacco Use Status: Current everyday Tobacco user Tobacco use type: Cigarette Cigarette Packs Per Day: 2 Cigarettes Per Day: 40.0 Years Smoked: 31 e-Cigarette/Vaping Use: Never Used Second Hand Smoke Exposure: Yes service: No Current occupational status: employed Current occupation: rt hand / golf course Cognitive needs: No Hearing needs: No Vision needs: Yes Questionnaire PHQ-9 Over the last 2 weeks, how often have you been bothered by any of the following problems? 1. Little interest or pleasure in doing things: not at all 2. Feeling down, depressed, or hopeless: not at all 3. Trouble falling or staying asleep, or sleeping too much: not at all 4. Feeling tired or having little energy: not at all 5. Poor appetite or overeating: not at all 6. Feeling bad about yourself - or that you are a failure or have let yourself or your family down: not at all 7. Trouble concentrating on things, such as reading the newspaper or watching television: not at all 8. Moving or speaking so slowly that other people could have noticed. Or the opposite - being so fidgety or restless that you have been moving around a lot more than usual: not at all 9. Thoughts that you would be better off or of hurting yourself in some way: not at all Total score: 0 Depression Screening Interpretation: Negative Depression Screening Done: Yes 40907 - PHQ-9 Billing: Yes Source: Developed by Drs. Francisco Acosta, Barbara Norris, Pedro Pablo Haider and colleagues, with an educational latrell from [employer]. Thrive Questionnaire Date Thrive assessed: 04/06/23 I am a: Patient What is your living situation today?: I have a steady place to live Within the past 12 months, did the food you bought not last and you didn't have the money to get more?: Never true Within the past 12 months, did you worry whether your food would run out before you got money to buy more?: Never true Do you have trouble paying for medicines?: No Do you have trouble getting transportation to medical appointments?: No Do you have trouble paying your heating and electricity bill?: No Do you have trouble taking care of your child, family member or friend?: No Do you have trouble with day-to-day activities such as bathing, preparing meals, shopping, managing finances, etc.?: No Are you currently unemployed and looking for a job?: No Are you interested in more education?: No Please select the resources that you would like help with: None Currently or been in a relationship where the following occur: no concerns reported AUDIT C Alcohol Use Questionnaire (AUDIT-C) 1. How often do you have a drink containing alcohol?: 4 or more times a week (drinks about 6 beers daily - quit drinking recently) 2. How many drinks containing alcohol do you have on a typical day when you are drinking?: 5 or 6 3. How often do you have six or more drinks on one occasion?: Daily or almost daily Total Score: 10 Score Reviewed/Action Taken: Yes (states that he has quit drinking a few months ago) ABHINAV-7 AMB Questionnaire ABHINAV-7 Date ABHINAV - 7 assessed: 04/06/23 Feeling nervous, anxious, or on edge: 0 = Not at all Not being able to stop or control worryin = Not at all Worrying too much about different things: 0 = Not at all Trouble relaxin = Not at all Being so restless that it is hard to sit still: 0 = Not at all Becoming easily annoyed or irritable: 0 = Not at all Feeling afraid as if something awful might happen: 0 = Not at all Total ABHINAV-7 score (0-4 normal; 5-9 mild; 10-14 moderate; 15-21 severe): 0 Source: Developed by Drs. Francisco Acosta, Barbara Norris, Pedro Pablo Haider and colleagues, with an educational latrell from [employer]. Review of Systems Const Denies chills, Reports fatigue, Denies fever(s) and Denies headache(s) ENT Denies dysphagia, Reports dizziness (on and off), Denies otalgia, Denies headache(s), Denies odynophagia and Denies sore throat Card Denies chest pain, Denies palpitations and Reports dyspnea on exertion Resp Reports cough (on and off, coughs up thick whitish phlegm), Denies hemoptysis, Denies pain with cough, Reports dyspnea on exertion and Denies wheezing GI Denies abdominal pain, Denies hematochezia, Denies constipation, Denies dysphagia, Denies heartburn, Reports diarrhea (on and off), Reports loose stools, Denies nausea, Denies odynophagia and Denies vomiting Denies hematuria, Denies dysuria, Reports urinary frequency and Reports urinary hesitancy Musc Reports arthralgias (involving multiple joints) and Reports stiffness Skin/Breast Denies rash Neuro Reports dizziness (on and off) and Denies headache(s) Endo Reports fatigue and Denies palpitations Aller/Immun Denies wheezing Physical exam (Primary Care) Vital Signs: Last Vital Signs Pulse 97 04/06/23 17:14 BP 124/80 04/06/23 17:14 Pulse Ox 106 H 04/06/23 17:14 Oxygen Delivery Method Room Air 04/06/23 17:14 BMI result Body Mass Index 17.9 Tobacco/Smoking Status: Tobacco use Status Tobacco use date assessed 04/06/23 04/06/23 17:15 Patient Tobacco Use Status Current everyday Tobacco 04/06/23 17:15 Tobacco use type Cigarette 04/06/23 17:15 e-Cigarette/Vaping Use Never Used 04/06/23 17:15 PHQ-9: PHQ-9 Score PHQ-9: Total score 0 04/06/23 17:45 Depression Screening Interpretation: Negative Thrive Assessment: Date of Thrive Assessment Date Thrive assessed 04/06/23 04/06/23 17:15 Currently or been in a relationship where the following occur: no concerns reported Const General: no acute distress and alert HENMT Ears: TM's normal bilaterally and EAC's normal Throat: Yes posterior oropharynx normal and Yes tonsils normal Neck Neck: Yes no lymphadenopathy and Yes supple Resp Auscultation: no crackles, no rales, rhonchi (scattered) throughout, no wheezes and diminished lung sounds (slightly) bilateral Cardio Rate: regular rate Rhythm: regular rhythm Heart sounds: no murmurs GI Palpation (GI): Soft to palpation and nontender Auscultation: normal bowel sounds General: Yes no CVA tenderness Back/Spine/Pelvis Back: no CVA tenderness Skin Rashes: no rashes Extrem Other: (+) prominent varicosities noted over both lower legs General: No clubbing, No cyanosis and Yes pedal edema (1+ bilaterally) Assessment and Plan Assessment & Plan (1) Pulmonary emphysema: Code(s): J43.9 - Emphysema, unspecified Qualifiers: Emphysema type: unspecified Qualified Code(s): J43.9 - Emphysema, unspecified Plan: Continue Albuterol HFA 2 inhalations every 6 hours PRN and oral Prednisone [address] done in the past have revealed (+) severe emphysema Follow up with pulmonary as scheduled (2) Lung abscess: Code(s): J85.2 - Abscess of lung without pneumonia Qualifiers: Pulmonary abscess pneumonia presence: without pneumonia Laterality: unspecified laterality Qualified Code(s): J85.2 - Abscess of lung without pneumonia Plan: S/P suppressive Tx with Augmentin 875 mg BID x 3 months, which patient completed at the end of November [address] done a few months ago revealed severe emphysema with increasing airspace disease in the right middle lobe suggestive of worsening pneumonia at the time. There is continued slight interval decrease in fluid component on the right, otherwise stable cavitary lesions in the right lower lobe and left lower lobe and severe airway disease in the right middle and bilateral lower lobes. Stable mediastinal lymphadenopathy is noted as well. Follow up with pulmonary as scheduled (3) Chronic kidney disease, stage III (moderate): Code(s): N18.30 - Chronic kidney disease, stage 3 unspecified Qualifiers: Chronic kidney disease stage 3 subtype: stage 3b (GFR 30-44) Qualified Code(s): N18.32 - Chronic kidney disease, stage 3b Plan: Patient's GFR and renal function appears to have stabilized over the past few weeks but he remained in stage 3 CKD Will need to continue monitoring his renal function closely Follow up with nephrology as scheduled (4) Generalized weakness: Code(s): R53.1 - Weakness Plan: S/P short-term inpatient rehab and physical therapy at [facility] with some improvement (5) Chronic deep vein thrombosis (DVT) of left lower extremity: Comment: Initially diagnosed in June 2021 Code(s): I82.502 - Chronic embolism and thrombosis of unspecified deep veins of left lower extremity Qualifiers: Affected thrombotic vein of extremity: femoral Qualified Code(s): I82.512 - Chronic embolism and thrombosis of left femoral vein Plan: Repeat venous doppler done in November 2022 showed the persistence of his LLE DVT that is mostly unchanged from his previous venous doppler done a year ago in November 2021 Continue Eliquis 5 mg BID - dose was increased back up from 2.5 mg to 5 mg upon the recommendation of vascular surgery Follow up with vascular surgery as scheduled (6) Discoid lupus erythematosus: Code(s): L93.0 - Discoid lupus erythematosus Plan: Continue Plaquenil 200 mg BID and Prednisone 5 mg QD Will need yearly eye exam Wass not started on immunosuppressive DMARDs due to his chronic lung abscess Follow up with dermatology (Dr. Blood) and with rheumatology (Dr. Weston) as scheduled (7) History of substance abuse: Code(s): F19.11 - Other psychoactive substance abuse, in remission Plan: Continue Suboxone 8-2 mg film QD Follow up with the Suboxone clinic as scheduled (8) Smoker: Code(s): F17.200 - Nicotine dependence, unspecified, uncomplicated Plan: Counseled again on smoking cessation Continue Nicotine patches to help him quit smoking (9) Alcohol use: Code(s): Z72.89 - Other problems related to lifestyle Plan: Patient states that he stopped drinking recently Counseled again on continuing abstinence Plan Follow up in 3 months Coding Level of Care Code Est Pt Level 4 (78793) Diagnoses Pulmonary emphysema, unspecified emphysema type J43.9 Emphysema type: unspecified Abscess of lung without pneumonia, unspecified laterality J85.2 Pulmonary abscess pneumonia presence: without pneumonia Laterality: unspecified laterality Stage 3b chronic kidney disease N18.32 Chronic kidney disease stage 3 subtype: stage 3b (GFR 30-44) Generalized weakness R53.1 Chronic deep vein thrombosis (DVT) of femoral vein of left lower extremity I82.512 Affected thrombotic vein of extremity: femoral Discoid lupus erythematosus L93.0 History of substance abuse F19.11 Smoker F17.200 Alcohol use Z72.89
[2023-04-06 17:14] VITALS: BP 124/80; PULSE 97; O2SAT 106; BMI 17.9
== END 2023-04-06 17:49 | disposition home or self-care (01) ==
LOC: HO.HMGH 17:12
PROVIDERS: PCP Internal Medicine; Visit Provider Internal Medicine
DX: J43.9 Emphysema, unspecified (principal); J85.2 Abscess of lung without pneumonia; N18.32 Chronic kidney disease, stage 3b; I82.512 Chronic embolism and thrombosis of left femoral vein; F19.11 Other psychoactive substance abuse, in remission; R53.1 Weakness; L93.0 Discoid lupus erythematosus; F17.200 Nicotine dependence, unspecified, uncomplicated; Z72.89 Other problems related to lifestyle
CPT/HCPCS: 99214

== ENCOUNTER 2023-04-18 12:24 | Outpatient (AMB) | payer OTHER, SELFPAY ==
[2023-04-18 12:56] VITALS: BP 106/70; PULSE 95; O2SAT 97; BMI 18.0
--- NOTE | 2023-04-18 12:56 | MHC.OFFWIV ---
Intake Vital Signs 04/18/23 12:56 Height 6 ft Weight 133 lb BMI 18.0 BP 106/70 Blood Pressure Location Rt brachial Position Sitting Pulse 95 Pulse Source Pulse Oximeter Pulse Oximetry (%) 97 Oxygen Delivery Method Room Air Intake Visit Reasons: EP RT eye concerns Intake Note: Pt is here today c/o Rt right red and swollen: Eye exam performed OD no vision OS 20/30 and OU 20/50 with eye correction contacts Patient Tobacco Use Status: Current everyday Tobacco user Allergies Sulfa (Sulfonamide Antibiotics) [SULFA (SULFONAMIDE ANTIBIOTICS)] Adverse Reaction (Intermediate, Verified 04/18/23 12:58) NAUSEA & VOMITING doxycycline Adverse Reaction (Mild, Verified 04/18/23 12:58) Vomiting HPI EP RT eye concerns HPI Details Patient is a 53-year-old male who comes to the walk-in clinic complaining of concerns to his right eye. He states that he had not been changing the contacts in his eyes every day, and had left a pair in for 5 consecutive days without removal during sleep or any rinsing or cleansing. He states that he started to developed trouble seeing, and did put a new contact into the eye today, which did not resolve his issue. He states that he sees complete blackness in the eye since awaking this morning. He presents with an extended family member, complaining of being unable to see. He denies known trauma to the eye, however he has been trying to remove the contact himself with his unclean fingers, and states that he drinks heavily and is not sure if he injured his eye. He does admit to feeling unsteady on his feet, with a mild headache also. He denies any other symptoms or concerns. [facility] Medical History AA (alcohol abuse) Pneumonia with cavity of lung Elevated LFTs Chronic deep vein thrombosis (DVT) of left lower extremity Bilateral leg weakness Alcohol withdrawal Abnormal EKG Lung abscess Abdominal hernia Varicose veins of both lower extremities Alcohol use Smoker Anxiety Abscess of lung Bilateral pneumonia Deep vein thrombosis of left lower extremity COPD (chronic obstructive pulmonary disease) History of substance abuse Epidermal cyst Pulmonary emphysema Surgical History History of laparoscopic cholecystectomy (~08/19/22) Family History Father CVD (cardiovascular disease) Mother Rheumatoid arthritis Sister No problems noted. Maternal Uncle Prostate cancer Maternal Uncle Lung cancer Colon cancer Social History Household Members: Other Housing: House Housing Other:: with roomate Are you a primary day care supervisor to a significant other at home: No Do you presently have visiting nurse or other home services: No Alcohol intake: current Alcohol intake frequency: 3 or more drinks per day Alcohol type: beer Patient Tobacco Use Status: Current everyday Tobacco user Tobacco use type: Cigarette Cigarette Packs Per Day: 2 Cigarettes Per Day: 40.0 Years Smoked: 31 e-Cigarette/Vaping Use: Never Used Second Hand Smoke Exposure: Yes service: No Current occupational status: employed Current occupation: rt hand / golf course Cognitive needs: No Hearing needs: No Vision needs: Yes Review of Systems Const All systems reviewed & are unremarkable except as noted in HPI and below Physical Exam Vital Signs: Last Vital Signs Pulse 95 04/18/23 12:56 BP 106/70 04/18/23 12:56 Pulse Ox 97 04/18/23 12:56 Oxygen Delivery Method Room Air 04/18/23 12:56 BMI result Body Mass Index 18.0 Const General: alert, awake, Physically active, intoxicated appearing and poor hygiene; No cooperative, healthy appearing, comfortable, acute distress or well groomed Nutritional Appearance: average body habitus Orientation/consciousness: oriented to time HEENT Head: Yes normocephalic Eyes Eyelids: Yes eyelid abnormality ( lower greater than upper eyelid swelling) Conjunctivae: conjunctival abnormal right and diffuse ( injection and ulcerative appearance to lateral aspect) Pupils: pupils not ERRL Eyes/upper lids images: 1. adhered contact lens with green pustulant discharge visible underneath that 2. open injected area, questionable for ulcer or laceration, with generalized edema and erythema of the conjunctiva Neuro General: oriented to time Cranial nerves: No Equal, round and reactive pupils present Assessment & Plan Assessment & Plan (1) Acute conjunctivitis: Code(s): H10.30 - Unspecified acute conjunctivitis, unspecified eye Qualifiers: Acute conjunctivitis type: unspecified Laterality: right Qualified Code(s): H10.31 - Unspecified acute conjunctivitis, right eye Plan: Patient with apparent acute conjunctivitis to the right eye at the very least, and possibly preseptal cellulitis and with eye trauma in the setting of heavy alcohol abuse and poor hygiene. He has been putting his fingers in his eyes trying to remove a contact lens that is apparently adhered, and his visibly dirty fingernails are long, which appear to be traumatizing his eye. As he is not cooperative with me trying to examine and treat him, I did put 1 drop of tetracaine into the eye hoping that analgesia might help the situation. However, likely due to his being under the influence of alcohol, he is not able to keep his gaze steady for me to do this. He just kept repeatedly jabbing at his eye. I told him that that since he was complaining of pain and the inability to see at all prior to putting in the contact, and because he could not cooperate with my attempts at evaluation and treatment in the walk-in clinic, that I advised he go to emergency department for evaluation and treatment. He complied with this, and his family member was willing to bring him. I called an expect in to the hospital. Coding Level of Care Code Est Pt Level 4 (13629) Diagnoses Acute conjunctivitis of right eye, unspecified acute conjunctivitis type H10.31 Acute conjunctivitis type: unspecified Laterality: right
== END 2023-04-18 14:06 | disposition home or self-care (01) ==
PROVIDERS: PCP Internal Medicine; Visit Provider Physician Assistant Medical
DX: H10.31 Unspecified acute conjunctivitis, right eye (principal)
CPT/HCPCS: 99051; 99214

== ENCOUNTER 2023-04-18 14:13 | Emergency (ER) | payer OTHER, SELFPAY | END 2023-04-18 15:02 | disposition left against medical advice (07) | PROVIDERS: Emergency Provider Emergency Medicine; PCP Internal Medicine | DX: T15.01XA Foreign body in cornea, right eye, initial encounter (principal); W44.8XXA Other foreign body entering into or through a natural orifice, initial encounter ==

== ENCOUNTER 2023-04-19 03:00 | Emergency (ER) | payer OTHER, SELFPAY ==
[2023-04-19 03:15] VITALS: BP 115/82; PULSE 88; RESP 16; TEMP 36.5; O2SAT 98; BMI 19.0
--- NOTE | 2023-04-19 03:42 | ED.EYEPROB ---
HPI - Eye Problem General Chief complaint: Eye Problems Stated complaint: contact stuck in eye Time Seen by Provider: 04/19/23 03:22 Source: patient Mode of arrival: ambulatory Limitations: no limitations History of Present Illness HPI Narrative: patient with injection and discharge in his right eye, thinks his contact is caught. Patient states his eye was bothering him prior to putting in the contact. States that the urgent care was digging at it but unable to get it out. chief complaint: eye pain, eye redness and other (discharge) Onset (ago): hour(s) Onset description: gradual Duration: constant Location: right eye Related Data Home Medications Medication Instructions Recorded Confirmed buprenorphine 8 mg-naloxone 2 mg 2 film sublingual DAILY 08/10/20 03/24/23 sublingual film (Suboxone) multivitamin 1 tab PO DAILY 09/05/21 03/24/23 Previous Rx's Medication Instructions Recorded hydroxychloroquine 200 mg tablet 200 mg PO BID #180 tabs 10/21/22 albuterol sulfate 90 mcg/actuation 2 puff inhalation Q4-6H PRN 12/25/22 aerosol inhaler shortness of breath or wheezing 30 days #1 ea apixaban 5 mg tablet (Eliquis) 5 mg PO BID 30 days #60 tabs 01/26/23 ipratropium 0.5 mg-albuterol 3 mg 3 ml inhalation Q6-8H PRN wheezing 02/03/23 (2.5 mg base)/3 mL nebulization 30 days #180 mL sorenn walker #1 ea 02/14/23 SHOWER CHAIR #1 ea 03/09/23 prednisone 5 mg tablet 5 mg PO DAILY #30 tabs 03/19/23 tobramycin 0.3 % eye drops 2 drp ophthalmic (eye) Q4H #5 mL 04/19/23 Allergies Allergy/AdvReac Type Severity Reaction Status Date / Time Sulfa (Sulfonamide AdvReac Intermediate NAUSEA & Verified 04/18/23 12:58 Antibiotics) VOMITING [SULFA (SULFONAMIDE ANTIBIOTICS)] doxycycline AdvReac Mild Vomiting Verified 04/18/23 12:58 Review of Systems Review of Systems: Yes all other systems are reviewed and are negative Neurologic: Denies Sensory deficit (Neuro) PMFSH Past Medical History Medical History AA (alcohol abuse) Pneumonia with cavity of lung Elevated LFTs Chronic deep vein thrombosis (DVT) of left lower extremity Bilateral leg weakness Alcohol withdrawal Abnormal EKG Lung abscess Abdominal hernia Varicose veins of both lower extremities Alcohol use Smoker Anxiety Abscess of lung Bilateral pneumonia Deep vein thrombosis of left lower extremity COPD (chronic obstructive pulmonary disease) History of substance abuse Epidermal cyst Pulmonary emphysema Surgical History History of laparoscopic cholecystectomy (~08/19/22) Family History Family History Father CVD (cardiovascular disease) Mother Rheumatoid arthritis Sister No problems noted. Maternal Uncle Prostate cancer Maternal Uncle Lung cancer Colon cancer Social History Social History Household Members: Other Housing: House Housing Other:: with roomate Are you a primary career placement services counselor to a significant other at home: No Do you presently have visiting nurse or other home services: No Alcohol intake: current Alcohol intake frequency: 3 or more drinks per day Alcohol type: beer Patient Tobacco Use Status: Current everyday Tobacco user Tobacco use type: Cigarette Cigarette Packs Per Day: 2 Cigarettes Per Day: 40.0 Years Smoked: 31 e-Cigarette/Vaping Use: Never Used Second Hand Smoke Exposure: Yes service: No Current occupational status: employed Current occupation: rt hand / golf course Cognitive needs: No Hearing needs: No Vision needs: Yes Physical Exam Vital Signs: Vital Signs: Last Vital Signs Temp 97.7 F 04/19/23 03:15 Pulse 88 04/19/23 03:15 Resp 16 04/19/23 03:15 BP 115/82 04/19/23 03:15 Pulse Ox 98 04/19/23 03:15 O2 Del Method Room Air 04/19/23 03:15 BMI result Body Mass Index 19.0 Const: Other: thin male looking older than stated age with alcohol on breath Orientation/consciousness: oriented to person and patient oriented x3 Limitations: no limitations HEENT: Head: Yes normal to inspection Ears: external ears normal General nose exam: Normal external nose present Mouth: Normal oral and palatal mucosa present and oropharynx normal Throat: Yes posterior oropharynx normal Eyes: Other: right eye with edema to cornea, subconjunctival hemorrhage, injection to eye Neck: Other: supple Neck: Yes normal visual inspection Chest: Chest palpation & inspection: normal inspection of the chest Resp: Auscultation: clear to auscultation bilaterally Cardio: Jugular venous distension: no JVD Rate: regular rate Rhythm: regular rhythm Heart sounds: S1 normal heart sound present and S2 normal heart sound present GI: Inspection: Yes normal to inspection Palpation (GI): Soft to palpation, nontender and No hepatosplenomegaly present Auscultation: normal bowel sounds : General: Yes no CVA tenderness Back/Spine/Pelvis: Back: no CVA tenderness Skin: General skin exam: no rashes or lesions noted Neuro: General: oriented to person and patient oriented x3 Cranial nerves: Yes CN's II-XII intact bilaterally Motor exam (neuro): 5/5 motor strength present throughout Sensory Exam: No Sensory deficit (Neuro) Extrem: General: Yes normal to inspection Psych: Appearance: grossly normal Course Reevaluation(s) Reevaluation #1: tetracaine and fluorosceine used, right at 12 oclock with corneal abrasion, no contact seen. There is discharge coming from eye. Time: 03:47 Reevaluation #2: will treat with tobramycin and have the patient follow up with his eye doctor Time: 03:48 Medical Decision Making Differential Diagnosis Differential Diagnoses: The differential diagnosis associated with the presentation includes (conjuctivitis, corneal abrasion, retained foreign body were all considered) Independent Historian Clinical information obtained from an independent historian. History obtained from or confirmed by: Spouse Chronic Conditions Patient?s care impacted by: Other (alcohol use) Social Determinants Patient?s care significantly limited by Social Determinants of Health including: Alcoholism and drug addiction in family Discharge Plan Discharge Clinical Impression: Corneal abrasion, Conjunctivitis Patient Disposition: Home, Self-Care Instructions: Corneal Abrasion (ED), Conjunctivitis (ED) Additional Instructions: must see your eye doctor on Thursday Prescriptions: New tobramycin 0.3 % drops 2 drp ophthalmic (eye) Q4H Qty: 5 0RF Rx Instructions: to right eye No Action hydroxychloroquine 200 mg tablet 200 mg PO BID Qty: 180 1RF Eliquis 5 mg tablet 5 mg PO BID 30 Days Qty: 60 5RF ipratropium-albuterol 0.5 mg-3 mg(2.5 mg base)/3 mL solution for nebulization 3 ml inhalation Q6-8H PRN (Reason: wheezing) 30 Days Qty: 180 6RF prednisone 5 mg tablet 5 mg PO DAILY Qty: 30 2RF multivitamin Tablet 1 tab PO DAILY (DME) walker [facility] [place] Rx Instructions .ROUTE .MEDSUPPLY Qty: 1 0RF Rx Instructions: As directed buprenorphine-naloxone [Suboxone] 8-2 mg film 2 film sublingual DAILY (DME) SHOWER CHAIR See Rx Instructions .Route .MEDSUPPLY Qty: 1 0RF Rx Instructions: As directed albuterol sulfate 90 mcg/actuation HFA aerosol inhaler 2 puff inhalation Q4-6H PRN (Reason: shortness of breath or wheezing) 30 Days Qty: 1 6RF Referrals: Lizandro Teran MD [Primary Care Provider] - 1 week
[2023-04-19] MEDS: Tobramycin Sulfate 0.3% Sol Op 5 ML BTL 2 DROP EYE-RIGHT (03:46)
[2023-04-19] MEDS: Fluorescein Sodium STRIP 1 STRIP EYE-RIGHT (03:46)
[2023-04-19] MEDS: Tetracaine HCl/PF 0.5% Oph Sol 4 ML DROPS 3 DROP EYE-RIGHT (03:47)
== END 2023-04-19 03:58 | disposition home or self-care (01) ==
PROVIDERS: Emergency Provider Emergency Medicine; PCP Internal Medicine
DX: H18.821 Corneal disorder due to contact lens, right eye (principal); H10.9 Unspecified conjunctivitis; F17.210 Nicotine dependence, cigarettes, uncomplicated; Z71.6 Tobacco abuse counseling
CPT/HCPCS: 99282

== ENCOUNTER 2023-06-10 15:00 | Outpatient (RCR) | payer OTHER, SELFPAY ==
--- NOTE | 2023-04-15 17:01 | MHC.PT.EP ---
[facility] [place] [facility] [place] [facility] [place] [facility] [address] Odette Blanc [address] [phone] F: [phone] F: [phone] F: [phone] F: [phone] Physical Therapy Plan of Care Date of Evaluation: 04/15/23 Date of Surgery: Diagnosis: B Leg weakness. Assessment: Pt is a 52 y/o male with Hx of COPD, AA, and LE insufficiency, referred to TP for B Leg weakness resulting in decreased tolerance for walking and standing for duration, negotiating stairs, performing heavy HH chores as well as recent multiple falls secondary to decreased B hip and knee strength, and decreased standing balance, hospitalization, and sedentary lifestyle. Pt is deemed an appropriate candidate to receive skilled PT services to address his physical impairments in order to improve his functional ability. Frequency and Duration: The patient will be seen 2 x / wk x 6 wks. Short Term Goals: Initiate home program. Demonstrates Game Trapper Goals: I with home program. Pt will be able to walk 2 blocks with at most moderate dififculty; initial: extreme difficulty. Pt will eb able to negotiate 1 flight of stairs with at most a little bit of difficulty; initial: quite a bit of difficulty. Improve B knee extension MMT by at least 1/2 MMT grade. improve B hip abd MMT by at least 1/2 MMT grade. Treatment Plan: Modalities to reduce pain, spasms and effusion. Manual therapy to restore motion and function. Therapeutic exercise to improve strength and flexibility. Neuromuscular re-education for posture and balance. Therapeutic activities to return to functional activities of daily living. Electronically signed by: Kana Plascencia PT. Please sign and return to therapist. Thank you for your referral.
--- NOTE | 2023-10-09 08:27 | MHC.PT.DC ---
[facility] [place] Office [place] Office [place] Office [address] Odette Blanc [address] [phone] F: [phone] F: [phone] F: [phone] F: [phone] Physical Therapy Discharge Report Diagnosis: B Leg weakness. Date of Surgery: Date of Evaluation: 04/15/23 Date of Discharge: 10/09/23 Treatments to Date: 5 Cancellations to Date: 5 No Shows to Date: Discharge Status: Patient Elected to Stop Visit Non-compliance Discharge Summary: Pt ultimately stopped treatment after inconsistent attendance. Electronically signed by: Kana Plascencia PT. Please sign and return to therapist. Thank you for your referral.
== END 2023-10-09 08:25 | disposition home or self-care (01) ==
LOC: HO.PT 15:00
PROVIDERS: PCP Internal Medicine; Visit Provider Internal Medicine
DX: R29.898 Other symptoms and signs involving the musculoskeletal system (principal)
CPT/HCPCS: 97110; 97161

== ENCOUNTER 2023-06-18 15:25 | Outpatient (AMB) | payer OTHER, SELFPAY ==
--- NOTE | 2023-06-18 15:27 | A.OFFPC_ITS ---
Vital Signs 06/18/23 15:28 Height 6 ft Weight 127 lb 6 oz BMI 17.3 BP 130/90 H Blood Pressure Location Rt brachial Position Sitting Pulse 82 Pulse Source Pulse Oximeter Pulse Oximetry (%) 99 Oxygen Delivery Method Room Air Intake Visit Reasons: leg numbness bilateral Intake Note: Patient is here today for bilateral numbness with swelling from the knees down. Complaint of difficulty swallowing. Glass Edger Required: No [employer] Consultant: Not Required per policy Accompanied by: Self / Same As Patient Allergies Sulfa (Sulfonamide Antibiotics) [SULFA (SULFONAMIDE ANTIBIOTICS)] Adverse Reaction (Intermediate, Verified 06/30/23 05:51) NAUSEA & VOMITING doxycycline Adverse Reaction (Mild, Verified 06/30/23 05:51) Vomiting Medication List - Last Reconciled 06/30/23 by Tyrel Hirsch MD albuterol sulfate 90 mcg/actuation 2 puffs inhalation Q4-6H PRN 30 days apixaban (Eliquis) 5 mg PO BID 30 days buprenorphine-naloxone 8-2 mg (Suboxone) 2 film sublingual DAILY hydroxychloroquine 200 mg PO BID ipratropium-albuterol 0.5 mg-3 mg(2.5 mg base)/3 mL 3 mL inhalation Q6-8H PRN 30 days multivitamin 1 tab PO DAILY omeprazole 20 mg PO DAILY prednisone 5 mg PO DAILY [SHOWER CHAIR As directed] tobramycin 0.3% 2 drps ophthalmic (eye) Q4H walker As directed Tobacco use date assessed: 06/18/23 HPI leg numbness bilateral HPI Details 53-year-old male presents to the office for a follow-up visit. I am covering for his regular provider. Patient comes alone to the office. He is complaining of weakness in both his legs. He reports that on more than 1 occasion he has fallen. Also reports that he has some difficulty swallowing. This happens in every meal. No vomiting or regurgitation food material. Patient does not drive and his father has been helping him out. Patient has been or is a heavy drinker. He has been consuming large quantities of alcohol. [facility] Medical History AA (alcohol abuse) Pneumonia with cavity of lung Elevated LFTs Chronic deep vein thrombosis (DVT) of left lower extremity Bilateral leg weakness Alcohol withdrawal Abnormal EKG Lung abscess Abdominal hernia Varicose veins of both lower extremities Alcohol use Smoker Anxiety Abscess of lung Bilateral pneumonia Deep vein thrombosis of left lower extremity COPD (chronic obstructive pulmonary disease) History of substance abuse Epidermal cyst Pulmonary emphysema Surgical History History of laparoscopic cholecystectomy (~08/19/22) Family History Father CVD (cardiovascular disease) Mother Rheumatoid arthritis Sister No problems noted. Maternal Uncle Prostate cancer Maternal Uncle Lung cancer Colon cancer Social History Household Members: Other Housing: House Housing Other:: with roomate Are you a primary hospice care consultant to a significant other at home: No Do you presently have visiting nurse or other home services: No Alcohol intake: current Alcohol intake frequency: 3 or more drinks per day Alcohol type: beer Comment: patent refusing all alarms Patient Tobacco Use Status: Current everyday Tobacco user Tobacco use type: Cigarette Cigarette Packs Per Day: 2 Cigarettes Per Day: 40.0 Years Smoked: 31 Packs Per Year: 62 Packs per year/per ci.00 e-Cigarette/Vaping Use: Never Used Second Hand Smoke Exposure: Yes service: No Current occupational status: employed Current occupation: rt hand / golf course Cognitive needs: No Hearing needs: No Vision needs: Yes Questionnaire Thrive Questionnaire Date Thrive assessed: 04/06/23 ABHINAV-7 AMB Questionnaire ABHINAV-7 Date ABHINAV - 7 assessed: 04/06/23 Source: Developed by Drs. Francisco Acosta, Barbara Norris, Pedro Pablo Haider and colleagues, with an educational latrell from [employer]. Physical exam (Primary Care) Vital Signs: Last Vital Signs Pulse 82 06/18/23 15:28 BP 130/90 H 06/18/23 15:28 Pulse Ox 99 06/18/23 15:28 Oxygen Delivery Method Room Air 06/18/23 15:28 BMI result Body Mass Index 17.3 Tobacco/Smoking Status: Tobacco use Status Tobacco use date assessed 06/18/23 06/18/23 15:36 Patient Tobacco Use Status Current everyday Tobacco 06/18/23 15:36 Tobacco use type Cigarette 06/18/23 15:36 e-Cigarette/Vaping Use Never Used 06/18/23 15:36 Thrive Assessment: Date of Thrive Assessment Date Thrive assessed 04/06/23 06/18/23 15:36 Const General: cooperative and healthy appearing Nutritional Appearance: well nourished Orientation/consciousness: patient oriented x3 Limitations: no limitations HENMT Head: Yes normal to inspection Eyes General: appearance normal, both eyes and all related structures Neck Neck: Yes normal visual inspection Chest Chest palpation & inspection: normal palpation of entire chest wall Resp Effort & Inspection: normal respiratory effort Neuro Other: Diminished tone and reflexes in the lower extremity. 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 Patient was advised to abstain from alcohol, take plenty of vitamin supplementation. Repeat blood work in office visit has been scheduled. Medications: New omeprazole 20 mg PO DAILY 14 caps 0RF Changed From albuterol sulfate 90 mcg/actuation 2 puffs inhalation Q4-6H 30 days PRN 1 ea 6RF shortness of breath or wheezing To albuterol sulfate 90 mcg/actuation 2 puffs inhalation Q4-6H PRN 1 ea 6RF shortness of breath or wheezing 30 days From tobramycin 0.3% to right eye 2 drps ophthalmic (eye) Q4H 5 mL 0RF To tobramycin 0.3% to right eye 2 drps ophthalmic (eye) Q4H 5 mL 0RF Refilled prednisone 5 mg PO DAILY 30 tabs 2RF Coding Level of Care Code Est Pt Level 4 (73813) Diagnoses Generalized weakness R53.1
[2023-06-18 15:28] VITALS: BP 130/90; PULSE 82; O2SAT 99; BMI 17.3
== END 2023-06-18 16:04 | disposition home or self-care (01) ==
PROVIDERS: PCP Internal Medicine; Visit Provider Internal Medicine
DX: R53.1 Weakness (principal)
CPT/HCPCS: 99214

== ENCOUNTER 2023-07-01 16:10 | Outpatient (AMB) | payer OTHER, SELFPAY ==
[2023-07-01 16:52] VITALS: BP 120/84; PULSE 130; O2SAT 92; BMI 17.6
--- NOTE | 2023-07-01 16:52 | A.OFFPC_ITS ---
Vital Signs 07/01/23 16:52 Height 6 ft Weight 129 lb 8 oz BMI 17.6 BP 120/84 Blood Pressure Location Lt brachial Position Sitting Pulse 130 H Pulse Source Pulse Oximeter Pulse Oximetry (%) 92 Oxygen Delivery Method Room Air Intake Visit Reasons: BLE swelling and pain Hvac Mechanic Required: No Accompanied by: Self / Same As Patient Allergies Sulfa (Sulfonamide Antibiotics) [SULFA (SULFONAMIDE ANTIBIOTICS)] Adverse Reaction (Intermediate, Verified 07/01/23 17:33) NAUSEA & VOMITING doxycycline Adverse Reaction (Mild, Verified 07/01/23 17:33) Vomiting Medication List - Last Reconciled 07/01/23 by Lizandro Teran MD albuterol sulfate 90 mcg/actuation 2 puffs inhalation Q4-6H PRN 30 days apixaban (Eliquis) 5 mg PO BID 30 days buprenorphine-naloxone 8-2 mg (Suboxone) 2 film sublingual DAILY hydroxychloroquine 200 mg PO BID ipratropium-albuterol 0.5 mg-3 mg(2.5 mg base)/3 mL 3 mL inhalation Q6-8H PRN 30 days multivitamin 1 tab PO DAILY omeprazole 20 mg PO DAILY prednisone 5 mg PO DAILY [SHOWER CHAIR As directed] tobramycin 0.3% 2 drps ophthalmic (eye) Q4H walker As directed Tobacco use date assessed: 07/01/23 Dental Screening Dental Screen Date: 07/01/23 Did you have a dental visit in the last 12 months?: No Did you have a dental problem in the last 6 months where you did not have access to dental care?: No Was dental information given to patient?: No HPI BLE swelling and pain HPI Details Patient comes in today complaining of increased swelling and pain of both his legs and feet for the past 1 week Also states that he has been experiencing sore throat lately and has had trouble swallowing for the past couple of days, mostly to solid foods; has no such problem when drinking liquids although he states that his throat roldan often when he is swallowing Relates also increasing cough and congestion and notes (+) SOB and NELSON at times lately States that he coughs up thick but minimal greenish to brownish phlegm often; admits that he is still smoking He denies any fever or headaches; still has occasional dizziness Denies any chest pains No nausea/vomiting, no abdominal pain No change in bowel habits noted [facility], [facility] Medical History AA (alcohol abuse) Pneumonia with cavity of lung Elevated LFTs Chronic deep vein thrombosis (DVT) of left lower extremity Bilateral leg weakness Alcohol withdrawal Abnormal EKG Lung abscess Abdominal hernia Varicose veins of both lower extremities Alcohol use Smoker Anxiety Abscess of lung Bilateral pneumonia Deep vein thrombosis of left lower extremity COPD (chronic obstructive pulmonary disease) History of substance abuse Epidermal cyst Pulmonary emphysema Surgical History History of laparoscopic cholecystectomy (~08/19/22) Family History Father CVD (cardiovascular disease) Mother Rheumatoid arthritis Sister No problems noted. Maternal Uncle Prostate cancer Maternal Uncle Lung cancer Colon cancer Social History Household Members: Other Housing: House Housing Other:: with roomate Are you a primary home visit field care manager to a significant other at home: No Do you presently have visiting nurse or other home services: No Alcohol intake: current Alcohol intake frequency: 3 or more drinks per day Alcohol type: beer Comment: patent refusing all alarms Patient Tobacco Use Status: Current everyday Tobacco user Tobacco use type: Cigarette Cigarette Packs Per Day: 2 Cigarettes Per Day: 40.0 Years Smoked: 31 e-Cigarette/Vaping Use: Never Used Second Hand Smoke Exposure: Yes service: No Current occupational status: employed Current occupation: rt hand / golf course Cognitive needs: No Hearing needs: No Vision needs: Yes Questionnaire PHQ-9 Over the last 2 weeks, how often have you been bothered by any of the following problems? 1. Little interest or pleasure in doing things: not at all 2. Feeling down, depressed, or hopeless: not at all 3. Trouble falling or staying asleep, or sleeping too much: not at all 4. Feeling tired or having little energy: not at all 5. Poor appetite or overeating: not at all 6. Feeling bad about yourself - or that you are a failure or have let yourself or your family down: not at all 7. Trouble concentrating on things, such as reading the newspaper or watching television: not at all 8. Moving or speaking so slowly that other people could have noticed. Or the opposite - being so fidgety or restless that you have been moving around a lot more than usual: not at all 9. Thoughts that you would be better off or of hurting yourself in some way: not at all Total score: 0 Depression Screening Interpretation: Negative Depression Screening Done: Yes [id number] - PHQ-9 Billing: Yes Source: Developed by Drs. Francisco Acosta, Barbara Norris, Pedro Pablo Haider and colleagues, with an educational latrell from [employer]. Thrive Questionnaire Date Thrive assessed: 07/01/23 I am a: Patient What is your living situation today?: I have a steady place to live Within the past 12 months, did the food you bought not last and you didn't have the money to get more?: Never true Within the past 12 months, did you worry whether your food would run out before you got money to buy more?: Never true Do you have trouble paying for medicines?: No Do you have trouble getting transportation to medical appointments?: No Do you have trouble paying your heating and electricity bill?: No Do you have trouble taking care of your child, family member or friend?: No Do you have trouble with day-to-day activities such as bathing, preparing meals, shopping, managing finances, etc.?: No Are you currently unemployed and looking for a job?: No Are you interested in more education?: No Please select the resources that you would like help with: None Currently or been in a relationship where the following occur: no concerns reported AUDIT C Alcohol Use Questionnaire (AUDIT-C) 1. How often do you have a drink containing alcohol?: 4 or more times a week (drinks about 6 beers daily - quit drinking recently) 2. How many drinks containing alcohol do you have on a typical day when you are drinking?: 5 or 6 3. How often do you have six or more drinks on one occasion?: Daily or almost daily Total Score: 10 Score Reviewed/Action Taken: Yes (states that he has quit drinking a few months ago) ABHINAV-7 AMB Questionnaire ABHINAV-7 Date ABHINAV - 7 assessed: 07/01/23 Feeling nervous, anxious, or on edge: 0 = Not at all Not being able to stop or control worryin = Not at all Worrying too much about different things: 0 = Not at all Trouble relaxin = Not at all Being so restless that it is hard to sit still: 0 = Not at all Becoming easily annoyed or irritable: 0 = Not at all Feeling afraid as if something awful might happen: 0 = Not at all Total ABHINAV-7 score (0-4 normal; 5-9 mild; 10-14 moderate; 15-21 severe): 0 Source: Developed by Drs. Francisco Acosta, Barbara Norris, Pedro Pablo Haider and colleagues, with an educational latrell from [employer]. Review of Systems Const Denies chills, Reports fatigue, Denies fever(s), Denies headache(s) and Reports weakness ENT Reports dysphagia (mostly to solids - see HPI), Reports dizziness (on and off), Denies otalgia, Denies headache(s), Denies odynophagia and Reports sore throat (mild) Card Denies chest pain, Denies palpitations, Reports dyspnea (lately) and Reports dyspnea on exertion Resp Reports chest congestion, Reports cough (on and off, coughs up thick greenish to brownish phlegm), Denies hemoptysis, Denies pain with cough, Reports dyspnea (lately), Reports dyspnea on exertion and Denies wheezing GI Denies abdominal pain, Denies hematochezia, Denies constipation, Reports dysphagia (mostly to solids - see HPI), Denies heartburn, Reports diarrhea (on and off), Reports loose stools, Denies nausea, Denies odynophagia and Denies vomiting Denies hematuria, Denies dysuria, Reports urinary frequency and Reports urinary hesitancy Musc Reports arthralgias (involving multiple joints) and Reports stiffness Skin/Breast Details: (+) scattered ecchymoses on his skin, especially over his extremities Neuro Reports dizziness (on and off), Denies headache(s) and Reports weakness Endo Reports fatigue and Denies palpitations Shlomo/Lymph Details: increased swelling of both legs and feet Aller/Immun Denies wheezing Physical exam (Primary Care) Vital Signs: Last Vital Signs Pulse 130 H 07/01/23 16:52 BP 120/84 07/01/23 16:52 Pulse Ox 92 07/01/23 16:52 Oxygen Delivery Method Room Air 07/01/23 16:52 BMI result Body Mass Index 17.6 Tobacco/Smoking Status: Tobacco use Status Tobacco use date assessed 07/01/23 07/01/23 16:57 Patient Tobacco Use Status Current everyday Tobacco 07/01/23 16:57 Tobacco use type Cigarette 07/01/23 16:57 e-Cigarette/Vaping Use Never Used 07/01/23 16:57 PHQ-9: PHQ-9 Score PHQ-9: Total score 0 07/02/23 09:24 Depression Screening Interpretation: Negative Thrive Assessment: Date of Thrive Assessment Date Thrive assessed 07/01/23 07/01/23 16:57 Currently or been in a relationship where the following occur: no concerns reported Const General: no acute distress and alert HENMT Ears: TM's normal bilaterally and EAC's normal Throat: Yes tonsils normal (no TP congestion noted) and Yes posterior oropharynx abnormal (increased erythema) Neck Neck: Yes no lymphadenopathy and Yes supple Resp Auscultation: no rales, rhonchi (scattered ) throughout, no wheezes and diminished lung sounds (bilateral) Cardio Rate: regular rate Rhythm: regular rhythm Heart sounds: no murmurs GI Palpation (GI): Soft to palpation and nontender Auscultation: normal bowel sounds Extrem General: No clubbing, No cyanosis and Yes edema (2+ bipedal edema) Assessment and Plan Assessment & Plan (1) COPD exacerbation: Code(s): J44.1 - Chronic obstructive pulmonary disease with (acute) exacerbation Plan: Will start him empirically on Levofloxacin 500 mg QD x 7 days Will send patient for chest x-rays TG for further evaluation Will also send him to the lab to get tested for the viral respiratory panel Continue Prednisone 5 mg QD and Duoneb updrafts Q 6 hours PRN; he also has an Albuterol inhaler that he uses Q 6 hours (2) Bilateral lower extremity edema: Code(s): R60.0 - Localized edema Plan: Will send him for some labs TG for further evaluation Plan Follow up as scheduled in a couple of weeks Orders: Orders UA CC w/rflx Micro + Cult 07/01/23 R30.0 - Dysuria, R60.0 - Localized edema XR chest 2V 07/01/23 J18.9 - Pneumonia, unspecified organism, R09.02 - Hypoxemia SARS-CoV2/FLU/RSV 07/01/23 J98.8 - Other specified respiratory disorders Complete Blood Count Auto Diff 07/01/23 R60.0 - Localized edema Comprehensive Met. Panel 07/01/23 R60.0 - Localized edema B Type Natriuretic Peptide 07/01/23 R60.0 - Localized edema TSH reflex Free T4 07/01/23 R60.0 - Localized edema Medications: New levofloxacin 500 mg PO DAILY 7 tabs 0RF Coding Level of Care Code Est Pt Level 3 (36262) Diagnoses COPD exacerbation J44.1 Bilateral lower extremity edema R60.0
== END 2023-07-01 17:43 | disposition home or self-care (01) ==
PROVIDERS: PCP Internal Medicine; Visit Provider Internal Medicine
DX: J44.1 Chronic obstructive pulmonary disease with (acute) exacerbation (principal); R60.0 Localized edema; F17.210 Nicotine dependence, cigarettes, uncomplicated
CPT/HCPCS: 99213

== ENCOUNTER 2023-07-02 15:37 | Emergency (ER) | payer OTHER, SELFPAY ==
--- NOTE | ~2023-07-02 | XR_ITS ---
EXAMINATION: XR CHEST CLINICAL INFORMATION: Productive cough. COMPARISON: Chest x-ray February 06, 2023. CT of the chest February 10, 2023 TECHNIQUE: 2 views of the chest were obtained. FINDINGS: Emphysematous change of lungs with chronic increased lung markings similar prior studies. No acute airspace opacities. No significant pleural effusion. Cardiac and mediastinal contours are normal. Heart size is normal. XR/XR chest 2V IMPRESSION: Emphysematous change of lungs. No acute abnormality of the chest.
--- NOTE | ~2023-07-02 | CT_ITS ---
EXAMINATION: CT HEAD WITHOUT CONTRAST CT CERVICAL SPINE WITHOUT CONTRAST CLINICAL INFORMATION: Fall with head strike on blood thinners. COMPARISON: CT head and cervical spine 02/10/2023. TECHNIQUE: CT of the head and cervical spine were performed without intravenous contrast. Multiplanar reformats were rendered and reviewed. This CT examination was performed using dose optimization techniques as appropriate, variously including the following: *Automated exposure control *Adjustment of mA and/or kV according to patient size (this includes techniques or standardized protocols for targeted exams where dose is matched to indication/reason for exam; i.e. extremities or head) *Use of iterative reconstruction technique DLP: 959 mGy-cm. FINDINGS: CT head: There is subgaleal hematoma at the left parietal scalp extending to the vertex. There is no underlying calvarial fracture. There is no intracranial hemorrhage or extra-axial collection, mass effect, or territorial infarction. There is mild degree of brain parenchymal volume loss. There is mild disproportionate prominence of the ventral margin to the sulci but unchanged compared with prior. There is circumferential mucosal thickening within the left maxillary sinus. CT cervical spine: The cervical vertebral bodies demonstrate normal heights. No fracture is seen. The craniovertebral junction is intact. There is grade 1 anterolisthesis of C5 on C6 related to advanced right facet arthropathy. There are prominent degenerative endplate changes at C6-C7 including a superior endplate Schmorl's node at the C7 level. There is significant emphysema within the visualized portions of the upper lungs. The cervical soft tissues are otherwise within normal limits. CT/CT cervical spine wo IV con IMPRESSION: CT HEAD: No acute intracranial abnormality. Subgaleal hematoma at the left parietal scalp extending to the vertex. No calvarial fracture. CT CERVICAL SPINE: No cervical spine fracture or traumatic malalignment. Grade 1 anterolisthesis of C5 on C6 related to advanced right facet arthropathy.
[2023-07-02 15:49] VITALS: BP 164/85; PULSE 88; RESP 20; TEMP 36.2; BMI 19.5
--- NOTE | 2023-07-02 16:21 | ED_ITS ---
HPI - General Adult General Chief complaint: Fall Stated complaint: fell outside of hospital Time Seen by Provider: 07/02/23 15:45 Source: patient Mode of arrival: ambulatory Limitations: no limitations History of Present Illness HPI narrative: Patient is a 53-year-old male with history of alcohol abuse, COPD, emphysema, chronic DVT of left lower extremity for which he is on Eliquis presenting to the emergency department after an unwitnessed fall while walking into the hospital for a chest x-ray ordered by his PCP. States PCP was concerned for pneumonia due to ongoing cough. Denies fevers. Patient states that as he got out of his car and began walking into the hospital he became lightheaded and fell. He is unsure if he lost consciousness. He does admit to alcohol use today. Denies any current complaints related to fall. Denies headache, vision changes, neck or back pain. Denies chest pain, palpitations or dyspnea. States his tetanus is up to date. MD complaint: head injury Onset (ago): minute(s) Associated symptoms: denies other symptoms Treatments prior to arrival: other (c-collar) Related Data Home Medications Medication Instructions Recorded Confirmed buprenorphine 8 mg-naloxone 2 mg 2 film sublingual DAILY 08/10/20 07/01/23 sublingual film (Suboxone) multivitamin 1 tab PO DAILY 09/05/21 07/01/23 Previous Rx's Medication Instructions Recorded apixaban 5 mg tablet (Eliquis) 5 mg PO BID 30 days #60 tabs 01/26/23 ipratropium 0.5 mg-albuterol 3 mg 3 ml inhalation Q6-8H PRN wheezing 02/03/23 (2.5 mg base)/3 mL nebulization 30 days #180 mL alie walker #1 ea 02/14/23 SHOWER CHAIR #1 ea 03/09/23 hydroxychloroquine 200 mg tablet 200 mg PO BID #180 tabs 04/28/23 albuterol sulfate 90 mcg/actuation 2 puff inhalation Q4-6H PRN 06/18/23 aerosol inhaler shortness of breath or wheezing 30 days #1 ea omeprazole 20 mg capsule,delayed 20 mg PO DAILY #14 caps 06/18/23 release tobramycin 0.3 % eye drops 2 drp ophthalmic (eye) Q4H #5 mL 06/18/23 prednisone 5 mg tablet 5 mg PO DAILY #30 tabs 06/25/23 levofloxacin 500 mg tablet 500 mg PO DAILY #7 tabs 07/01/23 Allergies Allergy/AdvReac Type Severity Reaction Status Date / Time Sulfa (Sulfonamide AdvReac Intermediate NAUSEA & Verified 07/01/23 17:33 Antibiotics) VOMITING [SULFA (SULFONAMIDE ANTIBIOTICS)] doxycycline AdvReac Mild Vomiting Verified 07/01/23 17:33 Review of Systems 2 Review of Systems: As per HPI Yes all other systems are reviewed and are negative PMFSH Past Medical History Onset Date is defined in the Problem List Problems that require an onset date and time if occurred within 24 hrs of arrival to the ED Aortic Dissection and Rupture; Neurologic impairment; Cardiopulmonary Arrest; Endotracheal Intubation; Insertion or Replacement of Mechanical Circulatory Assist Device Medical History AA (alcohol abuse) Pneumonia with cavity of lung Elevated LFTs Chronic deep vein thrombosis (DVT) of left lower extremity Bilateral leg weakness Alcohol withdrawal Abnormal EKG Lung abscess Abdominal hernia Varicose veins of both lower extremities Alcohol use Smoker Anxiety Abscess of lung Bilateral pneumonia Deep vein thrombosis of left lower extremity COPD (chronic obstructive pulmonary disease) History of substance abuse Epidermal cyst Pulmonary emphysema Surgical History History of laparoscopic cholecystectomy (~08/19/22) Family History Family History Father CVD (cardiovascular disease) Mother Rheumatoid arthritis Sister No problems noted. Maternal Uncle Prostate cancer Maternal Uncle Lung cancer Colon cancer Social History Social History Household Members: Other Housing: House Housing Other:: with roomate Are you a primary care rep to a significant other at home: No Do you presently have visiting nurse or other home services: No Alcohol intake: current Alcohol intake frequency: 3 or more drinks per day Alcohol type: beer Comment: patent refusing all alarms Patient Tobacco Use Status: Current everyday Tobacco user Tobacco use type: Cigarette Cigarette Packs Per Day: 2 Cigarettes Per Day: 40.0 Years Smoked: 31 e-Cigarette/Vaping Use: Never Used Second Hand Smoke Exposure: Yes Advance Directives: No Advance Directives Information Provided: Yes service: No Current occupational status: employed Current occupation: rt hand / [employer] Cognitive needs: No Hearing needs: No Vision needs: Yes Physical Exam ED Vital Signs: Vital Signs - 24 hr 07/02/23 15:49 Temperature 97.1 F Pulse Rate 88 Respiratory Rate 20 Blood Pressure 164/85 H Oxygen Delivery Method Room Air BMI result Body Mass Index 19.5 Vital signs have been reviewed and appear to be correct. Blood pressure elevated. Heart rate normal. Respiratory rate normal. Temperature normal. Oxygen saturation normal. Const General: no acute distress, alert and awake Nutritional Appearance: cachectic Orientation/consciousness: patient oriented x3 Limitations: no limitations HENMT Head: Yes normocephalic, No abrasion, No Kerr's sign, Yes contusion, No laceration, No raccoon eyes, No scalp tenderness and No periorbital ecchymosis Head images: 2 1. ecchymosis Ears: hearing grossly normal bilaterally, TM's normal bilaterally and EAC's normal General nose exam: Normal external nose present, Normal nasal mucous membranes and turbinates present and Normal septum present Face and sinus: Yes normal facial exam Mouth: Normal oral and palatal mucosa present Throat: Yes posterior oropharynx normal and Yes uvula midline Chest Chest palpation & inspection: normal inspection of the chest, normal palpation of entire chest wall and no tenderness Resp Effort & Inspection: normal respiratory effort Auscultation: rhonchi throughout Cardio Rate: regular rate Rhythm: regular rhythm Heart sounds: S1 normal heart sound present and S2 normal heart sound present GI Inspection: Yes normal to inspection and No abdominal wall ecchymosis Palpation (GI): Soft to palpation and nontender Auscultation: normoactive bowel sounds General: Yes no CVA tenderness Back/Spine/Pelvis Back: no CVA tenderness Cervical Spine: collar present Thoracic/Lumbar Spine: No pain with thoraco-lumbar ROM, No paraspinal muscle tenderness, No thoracic spinal tenderness and No lumbar spinal tenderness Pelvis: no pain with anterior-posterior compression and no pain with lateral compression Skin General skin exam: elasticity normal and turgor normal Trauma: other (superficial skin tear proximal dorsal left forearm) Neuro General: patient oriented x3, tone normal, moves all extremities, Normal light touch and pain sensation, no focal motor deficits, CN's II-XI intact bilaterally and deep tendon reflexes 2+ bilaterally Extrem General: Yes full ROM, Yes capillary refill normal, Yes normal exam except as noted, Yes no pedal edema and Yes no calf tenderness Left upper extremity: elbow/forearm Details: other (superficial skin tear left proximal forearm, dorsal aspect) Psych Appearance: grossly normal Mental Status: mental status grossly normal Medical Decision Making Medical Decision Making [facility] Narrative: Patient is a 53-year-old male with history of alcohol abuse, COPD, emphysema, chronic DVT of left lower extremity for which he is on Eliquis presenting to the emergency department after an unwitnessed fall while walking into the hospital for a chest x-ray ordered by his PCP. On exam patient is awake, A+Ox3, VS WNL, afebrile, normal neurological exam without focal deficits, physical exam findings as above. Given reported symptoms and physical exam findings, initial differential includes ICH, skull fracture, cervical vertebral fracture, scalp contusion, pneumonia. CT notable for subgaleal hematoma to left parietal scalp, no fracture, no cervical spine fracture. No evidence of pneumonia on chest x- ray. My interpretation is in agreement with the radiologist's interpretation. Patient is refusing all labs at this visit stating that he has no complaints and will follow up with his PCP. Discussed with patient that labs could reveal cause of his syncopal episode. Patient continues to adamantly refuse lab draw. Discussed with patient that he would be leaving against medical advise and discussed all risks with patient up to and including . Patient able to verbalize understanding of this and continues to refuse full evaluation. Patient does admit to alcohol use today but is awake, alert, oriented x 3, answering all questions appropriately and ambulating with steady gait. Pressure dressing applied to scalp. Patient states he will follow up with his PCP tomorrow. Return precautions discussed and patient advised he can return to the ED at any time if his symptoms should worsen or if he becomes agreeable to ongoing evaluation. Patient verbalized understanding of and agreement with this. Differential Diagnosis Differential Diagnoses: The differential diagnosis associated with the presentation includes As per MDM. Admission/Observation Consideration of admission/observation: Escalation of care including admission/observation considered Lab Data Patient refused Independent Interpretation I performed an independent interpretation of an: Plain X-Ray and CT Scan Interpretation: No evidence of pneumonia on CXR. Subgaleal hematoma to left parietal scalp, no skull or cervical spinal fracture. Radiology Impression Discussion of test interpretation with radiology: I have reviewed the radiologist's reading. Radiologist Impression: XR/XR chest 2V IMPRESSION: Emphysematous change of lungs. No acute abnormality of the chest. CT/CT head/brain wo IV con IMPRESSION: CT HEAD: No acute intracranial abnormality. Subgaleal hematoma at the left parietal scalp extending to the vertex. No calvarial fracture. CT CERVICAL SPINE: No cervical spine fracture or traumatic malalignment. Grade 1 anterolisthesis of C5 on C6 related to advanced right facet arthropathy. External Record Review External record reviewed: Inpatient record, Office record and Outpatient record Discharge Plan Discharge Clinical Impression: Hematoma of left parietal scalp, Fall Patient Disposition: Left Against Medical Advice Instructions: Scalp Contusion in Adults (ED) Additional Instructions: You have been evaluated in the emergency department today for head injury. Your CT scan did not show signs of bleed or fractures in your head but did show a hematoma to your scalp. You should apply ice to the area for 10-15 minutes at a time several times daily, do not apply ice directly to skin. We recommend you take Tylenol 650 mg every 6 hours as needed for pain. Please schedule an appointment with for follow-up with your primary care provider as soon as possible. Return to the emergency department if you experience worsening or uncontrolled pain, vision changes, recurrent vomiting, difficulty with normal activities, abnormal behavior, difficulty walking, numbness, weakness, or any other concerning symptoms. Prescriptions: No Action Eliquis 5 mg tablet 5 mg PO BID 30 Days Qty: 60 5RF ipratropium-albuterol 0.5 mg-3 mg(2.5 mg base)/3 mL solution for nebulization 3 ml inhalation Q6-8H PRN (Reason: wheezing) 30 Days Qty: 180 6RF hydroxychloroquine 200 mg tablet 200 mg PO BID Qty: 180 1RF prednisone 5 mg tablet 5 mg PO DAILY Qty: 30 2RF multivitamin Tablet 1 tab PO DAILY (GIDEON) dion [facility] [place] See Rx Instructions .ROUTE .MEDSUPPLY Qty: 1 0RF Rx Instructions: As directed buprenorphine-naloxone [Suboxone] 8-2 mg film 2 film sublingual DAILY albuterol sulfate 90 mcg/actuation HFA aerosol inhaler 2 puff inhalation Q4-6H PRN (Reason: shortness of breath or wheezing) 30 Days Qty: 1 6RF tobramycin 0.3 % drops 2 drp ophthalmic (eye) Q4H Qty: 5 0RF Rx Instructions: to right eye omeprazole 20 mg capsule,delayed release(DR/EC) 20 mg PO DAILY Qty: 14 0RF levofloxacin 500 mg tablet 500 mg PO DAILY Qty: 7 0RF (DME) SHOWER CHAIR See Rx Instructions .Route .MEDSUPPLY Qty: 1 0RF Rx Instructions: As directed Stand Alone Forms: Against Medical Advice
--- NOTE | 2023-07-02 18:45 | PC.NURSE ---
pt declined vitals for this rn.
[2023-07-02 19:05] VITALS: BP 130/70; PULSE 70; RESP 16; O2SAT 98
--- NOTE | 2023-07-02 19:10 | PC.NURSE ---
pt declined vs for rn- carlos ferrer talked w pt- pt states will allow me to take his vs. pt leaving [facility] per carlos ferrer.
== END 2023-07-02 19:20 | disposition left against medical advice (07) ==
PROVIDERS: Emergency Provider Student in an Organized Health Care Education/Training Program; PCP Internal Medicine
DX: S00.03XA Contusion of scalp, initial encounter (principal); W18.30XA Fall on same level, unspecified, initial encounter; R05.9 Cough, unspecified; J44.9 Chronic obstructive pulmonary disease, unspecified; F17.210 Nicotine dependence, cigarettes, uncomplicated; F10.10 Alcohol abuse, uncomplicated; Y90.9 Presence of alcohol in blood, level not specified; Z86.718 Personal history of other venous thrombosis and embolism; Z79.01 Long term (current) use of anticoagulants; F11.20 Opioid dependence, uncomplicated; Z79.899 Other long term (current) drug therapy; Y93.01 Activity, walking, marching and hiking; Y92.238 Other place in hospital as the place of occurrence of the external cause; Y99.9 Unspecified external cause status
CPT/HCPCS: 70450; 71046; 72125; 99282; 99284

== ENCOUNTER 2023-07-22 16:28 | Outpatient (AMB) | payer OTHER, SELFPAY ==
[2023-07-22 16:30] VITALS: BP 120/66; PULSE 96; O2SAT 95; BMI 17.8
--- NOTE | 2023-07-22 16:30 | MHC.PC.OV ---
Vital Signs 07/22/23 16:30 Height 5 ft 11 in Weight 127 lb 6 oz BMI 17.8 BP 120/66 Blood Pressure Location Lt brachial Position Sitting Pulse 96 Pulse Source Pulse Oximeter Pulse Oximetry (%) 95 Oxygen Delivery Method Room Air Intake Visit Reasons: Deep vein thrombosis Paper Products Supervisor Required: No Accompanied by: Self / Same As Patient Allergies Sulfa (Sulfonamide Antibiotics) [SULFA (SULFONAMIDE ANTIBIOTICS)] Adverse Reaction (Intermediate, Verified 07/22/23 16:54) NAUSEA & VOMITING doxycycline Adverse Reaction (Mild, Verified 07/22/23 16:54) Vomiting Medication List - Last Reconciled 07/22/23 by Lizandro Teran MD albuterol sulfate 90 mcg/actuation 2 puffs inhalation Q4-6H PRN 30 days apixaban (Eliquis) 5 mg PO BID 30 days buprenorphine-naloxone 8-2 mg (Suboxone) 2 film sublingual DAILY hydroxychloroquine 200 mg PO BID ipratropium-albuterol 0.5 mg-3 mg(2.5 mg base)/3 mL 3 mL inhalation Q6-8H PRN 30 days multivitamin 1 tab PO DAILY omeprazole 20 mg PO DAILY prednisone 5 mg PO DAILY [SHOWER CHAIR As directed] tobramycin 0.3% 2 drps ophthalmic (eye) Q4H walker As directed Tobacco use date assessed: 07/22/23 Dental Screening Dental Screen Date: 07/22/23 Did you have a dental visit in the last 12 months?: Yes Did you have a dental problem in the last 6 months where you did not have access to dental care?: No Was dental information given to patient?: Patient has dentist HPI Deep vein thrombosis HPI Details Patient comes in today for his follow up visit Patient states that he continues to feel very weak, especially over both of his legs, and he has trouble walking as a result States that the skin on his arms and legs still break down easily although he currently does not have any open sores or wounds He denies any headaches but still has recurrent dizziness Relates that he went to the hospital the next day after he was seen here a few weeks ago for increased cough and congestion to try to get a chest x-ray and got dizzy and fell while still outside hospital He was brought to the ER as a result for further evaluation were he had both the chest x-ray and head CT done His head CT came back negative and chest x-rays showed only emphysematous changes with no evidence of pneumonia States that his cough and congestion has improved a lot with treatment but he continues to experience frequent shortness of breath / NELSON (chronic) He denies any chest pains No nausea /vomiting, no abdominal pain No change in bowel habits noted He still has not been able to get his previously ordered labs done yet [facility] Medical History Chronic kidney disease, stage III (moderate) AA (alcohol abuse) Pneumonia with cavity of lung Elevated LFTs Chronic deep vein thrombosis (DVT) of left lower extremity Bilateral leg weakness Alcohol withdrawal Abnormal EKG Lung abscess Abdominal hernia Varicose veins of both lower extremities Alcohol use Smoker Anxiety Abscess of lung Bilateral pneumonia Deep vein thrombosis of left lower extremity COPD (chronic obstructive pulmonary disease) History of substance abuse Epidermal cyst Pulmonary emphysema Surgical History History of laparoscopic cholecystectomy (~08/19/22) Family History Father CVD (cardiovascular disease) Mother Rheumatoid arthritis Sister No problems noted. Maternal Uncle Prostate cancer Maternal Uncle Lung cancer Colon cancer Social History Household Members: Other Housing: House Housing Other:: with roomate Are you a primary healthcare management to a significant other at home: No Do you presently have visiting nurse or other home services: No Alcohol intake: current Alcohol intake frequency: 3 or more drinks per day Alcohol type: beer Comment: patent refusing all alarms Patient Tobacco Use Status: Current everyday Tobacco user Tobacco use type: Cigarette Cigarette Packs Per Day: 2 Cigarettes Per Day: 40.0 Years Smoked: 31 e-Cigarette/Vaping Use: Never Used Second Hand Smoke Exposure: Yes service: No Current occupational status: employed Current occupation: rt hand / golf course Cognitive needs: No Hearing needs: No Vision needs: Yes Questionnaire PHQ-9 Over the last 2 weeks, how often have you been bothered by any of the following problems? 1. Little interest or pleasure in doing things: not at all 2. Feeling down, depressed, or hopeless: not at all 3. Trouble falling or staying asleep, or sleeping too much: not at all 4. Feeling tired or having little energy: not at all 5. Poor appetite or overeating: not at all 6. Feeling bad about yourself - or that you are a failure or have let yourself or your family down: not at all 7. Trouble concentrating on things, such as reading the newspaper or watching television: not at all 8. Moving or speaking so slowly that other people could have noticed. Or the opposite - being so fidgety or restless that you have been moving around a lot more than usual: not at all 9. Thoughts that you would be better off or of hurting yourself in some way: not at all Total score: 0 Depression Screening Interpretation: Negative Depression Screening Done: Yes 43990 - PHQ-9 Billing: Yes Source: Developed by Drs. Francisco Acosta, Barbara Norris, Pedro Pablo Haider and colleagues, with an educational latrell from [employer]. Thrive Questionnaire Date Thrive assessed: 07/22/23 I am a: Patient What is your living situation today?: I have a steady place to live Within the past 12 months, did the food you bought not last and you didn't have the money to get more?: Never true Within the past 12 months, did you worry whether your food would run out before you got money to buy more?: Never true Do you have trouble paying for medicines?: No Do you have trouble getting transportation to medical appointments?: No Do you have trouble paying your heating and electricity bill?: No Do you have trouble taking care of your child, family member or friend?: No Do you have trouble with day-to-day activities such as bathing, preparing meals, shopping, managing finances, etc.?: No Are you currently unemployed and looking for a job?: No Are you interested in more education?: No Please select the resources that you would like help with: None Currently or been in a relationship where the following occur: no concerns reported THRIVE Score: 0 AUDIT C Alcohol Use Questionnaire (AUDIT-C) 1. How often do you have a drink containing alcohol?: 4 or more times a week (drinks about 6 beers daily - quit drinking recently) 2. How many drinks containing alcohol do you have on a typical day when you are drinking?: 5 or 6 3. How often do you have six or more drinks on one occasion?: Daily or almost daily Total Score: 10 Score Reviewed/Action Taken: Yes (states that he has quit drinking again a few weeks ago) ABHINAV-7 AMB Questionnaire ABHINAV-7 Date ABHINAV - 7 assessed: 07/22/23 Feeling nervous, anxious, or on edge: 0 = Not at all Not being able to stop or control worryin = Not at all Worrying too much about different things: 0 = Not at all Trouble relaxin = Not at all Being so restless that it is hard to sit still: 0 = Not at all Becoming easily annoyed or irritable: 0 = Not at all Feeling afraid as if something awful might happen: 0 = Not at all Total ABHINAV-7 score (0-4 normal; 5-9 mild; 10-14 moderate; 15-21 severe): 0 Source: Developed by Drs. Francisco Acosta, Barbara Norris, Pedro Pablo Haider and colleagues, with an educational latrell from [employer]. Review of Systems Const Denies chills, Reports fatigue, Denies fever(s), Denies headache(s) and Denies weakness ENT Denies dysphagia, Reports dizziness (recurrent), Denies otalgia, Denies headache(s), Denies odynophagia and Denies sore throat Card Denies chest pain, Denies palpitations and Reports dyspnea on exertion Resp Reports cough (on and off, coughs up thick whitish phlegm), Denies hemoptysis, Denies pain with cough, Reports dyspnea on exertion and Denies wheezing GI Denies abdominal pain, Denies hematochezia, Denies constipation, Denies dysphagia, Denies heartburn, Reports diarrhea (on and off), Reports loose stools, Denies nausea, Denies odynophagia and Denies vomiting Denies hematuria, Denies dysuria, Reports urinary frequency and Reports urinary hesitancy Musc Reports arthralgias (involving multiple joints), Reports muscle weakness (in both legs) and Reports stiffness Skin/Breast Details: skin on both arms and legs looks thin and friable Denies rash Neuro Reports dizziness (recurrent), Denies headache(s) and Denies weakness Endo Reports fatigue and Denies palpitations Aller/Immun Denies wheezing Physical exam (Primary Care) Vital Signs: Last Vital Signs Pulse 96 07/22/23 16:30 BP 120/66 07/22/23 16:30 Pulse Ox 95 07/22/23 16:30 Oxygen Delivery Method Room Air 07/22/23 16:30 BMI result Body Mass Index 17.8 Tobacco/Smoking Status: Tobacco use Status Tobacco use date assessed 07/22/23 07/22/23 16:32 Patient Tobacco Use Status Current everyday Tobacco 07/22/23 16:32 Tobacco use type Cigarette 07/22/23 16:32 e-Cigarette/Vaping Use Never Used 07/22/23 16:32 PHQ-9: PHQ-9 Score PHQ-9: Total score 0 07/22/23 17:10 Depression Screening Interpretation: Negative Thrive Assessment: Date of Thrive Assessment Date Thrive assessed 07/22/23 07/22/23 16:32 Currently or been in a relationship where the following occur: no concerns reported Const General: no acute distress and alert Orientation/consciousness: patient oriented x3 HENMT Ears: TM's normal bilaterally and EAC's normal Throat: Yes posterior oropharynx normal and Yes tonsils normal Neck Neck: Yes no lymphadenopathy and Yes supple Resp Auscultation: no crackles, no rales, rhonchi (scattered) throughout, no wheezes and diminished lung sounds (slightly) bilateral Cardio Rate: regular rate Rhythm: regular rhythm Heart sounds: no murmurs GI Inspection: Yes scaphoid Palpation (GI): Soft to palpation and nontender Auscultation: normal bowel sounds General: Yes no CVA tenderness Back/Spine/Pelvis Back: no CVA tenderness Skin Other: (+) few scattered bruising on both arms and legs; skin on arms and legs appear very thin and friable; no open wounds or lesions noted at present Neuro General: patient oriented x3 Speech: Expressive aphasia present Gait exam (Neuro): Other gait observations present ((+) myopathic gait) Extrem Other: (+) prominent varicosities noted over both lower legs General: No clubbing, No cyanosis, Yes muscle atrophy (over both lower extremities) and Yes pedal edema (1+ bilaterally) Assessment and Plan Assessment & Plan (1) Bilateral leg weakness: Code(s): R29.898 - Other symptoms and signs involving the musculoskeletal system Plan: Per request, will refer him again to physical therapy to help with his leg weakness Have advised patient that as he has significant muscle atrophy noted over both lower extremities, likely brought about by peripheral neuropathy related to his history of alcohol abuse, there will be no quick fix or effective short-term solution for his weakness Patient is advised to try to get his previously ordered labs done TG for further evaluation (2) Pulmonary emphysema: Code(s): J43.9 - Emphysema, unspecified Qualifiers: Emphysema type: unspecified Qualified Code(s): J43.9 - Emphysema, unspecified Plan: Continue Albuterol HFA 2 inhalations every 6 hours PRN and oral Prednisone [address] done in the past have revealed (+) severe emphysema Follow up with pulmonary as scheduled (3) Lung abscess: Code(s): J85.2 - Abscess of lung without pneumonia Qualifiers: Pulmonary abscess pneumonia presence: without pneumonia Laterality: unspecified laterality Qualified Code(s): J85.2 - Abscess of lung without pneumonia Plan: S/P suppressive Tx with Augmentin 875 mg BID x 3 months, which patient completed at the end of November [address] revealed severe emphysema with increasing airspace disease in the right middle lobe suggestive of worsening pneumonia at the time. There is continued slight interval decrease in fluid component on the right, otherwise stable cavitary lesions in the right lower lobe and left lower lobe and severe airway disease in the right middle and bilateral lower lobes. Stable mediastinal lymphadenopathy is noted as well. Follow up with pulmonary as scheduled (4) Chronic kidney disease, stage III (moderate): Code(s): N18.30 - Chronic kidney disease, stage 3 unspecified Qualifiers: Chronic kidney disease stage 3 subtype: stage 3b (GFR 30-44) Qualified Code(s): N18.32 - Chronic kidney disease, stage 3b Plan: Patient's GFR and renal function appears to have stabilized over the past few weeks but he remained in stage 3 CKD Will need to continue monitoring his renal function closely Follow up with nephrology as scheduled (5) Chronic deep vein thrombosis (DVT) of left lower extremity: Comment: Initially diagnosed in June 2021 Code(s): I82.502 - Chronic embolism and thrombosis of unspecified deep veins of left lower extremity Qualifiers: Affected thrombotic vein of extremity: femoral Qualified Code(s): I82.512 - Chronic embolism and thrombosis of left femoral vein Plan: Repeat venous doppler done in November 2022 showed the persistence of his LLE DVT that is mostly unchanged from his previous venous doppler done a year ago in November 2021 Continue Eliquis 5 mg BID - dose was increased back up from 2.5 mg to 5 mg upon the recommendation of vascular surgery Follow up with vascular surgery as scheduled (6) Discoid lupus erythematosus: Code(s): L93.0 - Discoid lupus erythematosus Plan: Continue Plaquenil 200 mg BID and Prednisone 5 mg QD Will need yearly eye exam He was not started on immunosuppressive DMARDs due to his chronic lung abscess Follow up with dermatology (Dr. Blood) and with rheumatology (Dr. Weston) as scheduled (7) Urinary frequency: Code(s): R35.0 - Frequency of micturition Plan: Advised that this is most likely due to issues with his prostate - will include a serum PSA level with his labs for further evaluation (8) History of substance abuse: Code(s): F19.11 - Other psychoactive substance abuse, in remission Plan: Continue Suboxone 8-2 mg film QD Follow up with the Suboxone clinic as scheduled (9) Smoker: Code(s): F17.200 - Nicotine dependence, unspecified, uncomplicated Plan: Counseled again on smoking cessation Continue Nicotine patches to help him quit smoking (10) Alcohol use: Code(s): Z72.89 - Other problems related to lifestyle Plan: Patient states that he stopped drinking again recently Counseled again on continuing abstinence Plan Follow up in 3 months Orders: Orders Prostate Specific Antigen 07/22/23 N40.0 - Benign prostatic hyperplasia without lower urinary tract symptoms PT Evaluation and Treatment 07/22/23 R29.898 - Other symptoms and signs involving the musculoskeletal system, R53.1 - Weakness Coding Level of Care Code Est Pt Level 4 (54275) Diagnoses Bilateral leg weakness R29.898 Pulmonary emphysema, unspecified emphysema type J43.9 Emphysema type: unspecified Abscess of lung without pneumonia, unspecified laterality J85.2 Pulmonary abscess pneumonia presence: without pneumonia Laterality: unspecified laterality Stage 3b chronic kidney disease N18.32 Chronic kidney disease stage 3 subtype: stage 3b (GFR 30-44) Chronic deep vein thrombosis (DVT) of femoral vein of left lower extremity I82.512 Affected thrombotic vein of extremity: femoral Discoid lupus erythematosus L93.0 Urinary frequency R35.0 History of substance abuse F19.11 Smoker F17.200 Alcohol use Z72.89
== END 2023-07-22 17:16 | disposition home or self-care (01) ==
PROVIDERS: PCP Internal Medicine; Visit Provider Internal Medicine
DX: J43.9 Emphysema, unspecified (principal); J85.2 Abscess of lung without pneumonia; N18.32 Chronic kidney disease, stage 3b; F19.11 Other psychoactive substance abuse, in remission; I82.512 Chronic embolism and thrombosis of left femoral vein; R29.898 Other symptoms and signs involving the musculoskeletal system; L93.0 Discoid lupus erythematosus; R35.0 Frequency of micturition; F17.210 Nicotine dependence, cigarettes, uncomplicated; Z72.89 Other problems related to lifestyle
CPT/HCPCS: 99214

== ENCOUNTER 2023-09-23 15:13 | Outpatient (AMB) | payer OTHER, SELFPAY ==
--- NOTE | 2023-09-23 15:14 | MHC.OFFVIS ---
Intake Vital Signs 09/23/23 15:15 Height 5 ft 11 in Weight 140 lb BMI 19.5 BMI Reason not done Patient refused/unable BP 120/68 Blood Pressure Location Lt brachial Position Sitting Pulse 78 Intake Visit Reasons: Shortness of breath Intake Note: PT is still having SOB Allergies Sulfa (Sulfonamide Antibiotics) [SULFA (SULFONAMIDE ANTIBIOTICS)] Adverse Reaction (Intermediate, Verified 07/22/23 16:54) NAUSEA & VOMITING doxycycline Adverse Reaction (Mild, Verified 07/22/23 16:54) Vomiting Medication List - Last Reconciled 09/23/23 by Grisel Stringer NP albuterol sulfate 90 mcg/actuation 2 puffs inhalation Q4-6H PRN 30 days apixaban (Eliquis) 5 mg PO BID 30 days buprenorphine-naloxone 8-2 mg (Suboxone) 2 film sublingual DAILY hydroxychloroquine 200 mg PO BID ipratropium-albuterol 0.5 mg-3 mg(2.5 mg base)/3 mL 3 mL inhalation Q6-8H PRN 30 days multivitamin 1 tab PO DAILY omeprazole 20 mg PO DAILY prednisone 5 mg PO DAILY [SHOWER CHAIR As directed] tobramycin 0.3% 2 drps ophthalmic (eye) Q4H walker As directed HPI HPI Comments History of Present Illness Details 53-year-old male presents today regarding his shortness of breath. He had last seen Dr. Miller in November 2022. He reports today he has a chronic chest ache that is present all the time and an increase in shortness of breath for the last month or two. With low exertion such as going to the bathroom he becomes very faigued and short of breath. He has a history of smoking and alcohol use. [facility] Medical History (Updated 09/23/23 @ 15:25 by Grisel Stringer NP) Shortness of breath on exertion Chronic kidney disease, stage III (moderate) AA (alcohol abuse) Pneumonia with cavity of lung Elevated LFTs Chronic deep vein thrombosis (DVT) of left lower extremity Bilateral leg weakness Alcohol withdrawal Abnormal EKG Lung abscess Abdominal hernia Varicose veins of both lower extremities Alcohol use Smoker Anxiety Abscess of lung Bilateral pneumonia Deep vein thrombosis of left lower extremity COPD (chronic obstructive pulmonary disease) History of substance abuse Epidermal cyst Pulmonary emphysema Surgical History History of laparoscopic cholecystectomy (~08/19/22) Family History Father CVD (cardiovascular disease) Mother Rheumatoid arthritis Sister No problems noted. Maternal Uncle Prostate cancer Maternal Uncle Lung cancer Colon cancer Social History Household Members: Other Housing: House Housing Other:: with roomate Are you a primary medical care administrator to a significant other at home: No Do you presently have visiting nurse or other home services: No Alcohol intake: current Alcohol intake frequency: 3 or more drinks per day Alcohol type: beer Comment: patent refusing all alarms Patient Tobacco Use Status: Current everyday Tobacco user Tobacco use type: Cigarette Cigarette Packs Per Day: 2 Cigarettes Per Day: 40.0 Years Smoked: 31 e-Cigarette/Vaping Use: Never Used Second Hand Smoke Exposure: Yes service: No Current occupational status: employed Current occupation: rt hand / golf course Cognitive needs: No Hearing needs: No Vision needs: Yes Review of Systems Const Denies weakness ENT Denies dizziness Card Denies chest pain, Denies chest pain with activity, Denies syncope, Denies rapid heart rate, Denies pedal edema, Denies edema, Denies leg edema, Denies lightheadedness, Denies palpitations, Denies dyspnea, Denies dyspnea on exertion and Denies orthopnea Resp Denies cough, Denies dyspnea and Denies dyspnea on exertion GI Denies hematochezia and Denies change in stool character Musc Denies abnormal gait, Denies muscle cramps, Denies muscle weakness, Denies numbness, Denies radiating pain into limb and Denies tingling Neuro Denies abnormal gait, Denies dizziness, Denies syncope, Denies numbness, Denies tingling and Denies weakness Endo Denies palpitations Physical Exam Vital Signs: Last Vital Signs Pulse 78 09/23/23 15:15 BP 120/68 09/23/23 15:15 BMI result Body Mass Index 19.5 Const General: healthy appearing and no acute distress Orientation/consciousness: patient oriented x3 Limitations: wheelchair HEENT Head: Yes normal to inspection Eyes General: appearance normal, both eyes and all related structures Neck Neck: Yes normal visual inspection Chest Chest palpation & inspection: normal inspection of the chest Resp Effort & Inspection: normal respiratory effort Auscultation: clear to auscultation bilaterally Cardio Jugular venous distension: no JVD Palpation: normal PMI Rate: regular rate Rhythm: regular rhythm Heart sounds: S1 normal heart sound present, S2 normal heart sound present, no click, no gallops, no murmurs and no rubs GI Inspection: Yes normal to inspection Palpation (GI): Soft to palpation Skin General skin exam: no rashes or lesions noted Neuro General: patient oriented x3 Extrem General: Yes normal to inspection Psych Appearance: grossly normal Assessment & Plan Assessment & Plan (1) Shortness of breath on exertion: Code(s): R06.02 - Shortness of breath Plan Will have lab work from PCP forwarded to me. Echo in Jul 2022 showed EF of 64%, mildly increased LV wall thickness, and no wall motion abnormalities. Will repeat echo for any changes and will do a dobutamine stress echo to assess dyspnea on exertion and chest ache. He is currently in a wheelchair and due to pulmonary issues unlikely to be able to go onto treadmill. Orders: Orders CA dobutamine stress echo w co 09/23/23 R06.02 - Shortness of breath CA echo transthoracic complete 09/23/23 R06.02 - Shortness of breath B Type Natriuretic Peptide 07/22/23 R60.0 - Localized edema Comprehensive Met. Panel 07/22/23 R60.0 - Localized edema Complete Blood Count Auto Diff 07/22/23 R60.0 - Localized edema TSH reflex Free T4 07/22/23 R60.0 - Localized edema Medications: Changed From prednisone 5 mg PO DAILY 30 tabs 2RF To prednisone 5 mg PO DAILY From omeprazole 20 mg PO DAILY 14 caps 0RF To omeprazole 20 mg PO DAILY Coding Level of Care Code Est Pt Level 3 (05571) Diagnoses Shortness of breath on exertion R06.02
[2023-09-23 15:15] VITALS: BP 120/68; PULSE 78; BMI 19.5
== END 2023-09-23 15:36 | disposition home or self-care (01) ==
PROVIDERS: PCP Internal Medicine; Visit Provider Nurse Practitioner
DX: R06.02 Shortness of breath (principal)
CPT/HCPCS: 99213

== ENCOUNTER → 2023-09-23 15:13 | Outpatient (BNVA) | payer OTHER, SELFPAY | PROVIDERS: PCP Internal Medicine; Visit Provider Nurse Practitioner | DX: R06.02 Shortness of breath (principal) | CPT/HCPCS: 99212 ==

== ENCOUNTER 2023-09-24 13:57 | Outpatient (AMB) | payer OTHER, SELFPAY ==
[2023-09-24 14:06] VITALS: BP 102/62; PULSE 94; O2SAT 92; BMI 19.5
--- NOTE | 2023-09-24 14:06 | MHC.OFFVIS ---
Intake Vital Signs 09/24/23 14:06 Height 5 ft 11 in Weight 140 lb BMI 19.5 BP 102/62 Blood Pressure Location Rt brachial Position Sitting Pulse 94 Pulse Source Doppler Pulse Oximetry (%) 92 Oxygen Delivery Method Room Air Intake Visit Reasons: COPD Allergies Sulfa (Sulfonamide Antibiotics) [SULFA (SULFONAMIDE ANTIBIOTICS)] Adverse Reaction (Intermediate, Verified 07/22/23 16:54) NAUSEA & VOMITING doxycycline Adverse Reaction (Mild, Verified 07/22/23 16:54) Vomiting HPI COPD HPI Details 52-year-old gentleman, active 30+ pack-year smoker, with underlying SLE and prior admission to [facility] for pneumonia with lower lobe pulmonary abscesses, treated with multiple courses of Augmentin now followed for COPD and chronic streptococcal pulmonary abscesses. Patient denies any other pulmonary related concerns or complaints. Unfortunately, his managing continued to show persistent pulmonary abscess and he was referred for infectious disease service evaluation.. [facility] Medical History (Updated 09/23/23 @ 15:25 by Grisel Stringer NP) Shortness of breath on exertion Chronic kidney disease, stage III (moderate) AA (alcohol abuse) Pneumonia with cavity of lung Elevated LFTs Chronic deep vein thrombosis (DVT) of left lower extremity Bilateral leg weakness Alcohol withdrawal Abnormal EKG Lung abscess Abdominal hernia Varicose veins of both lower extremities Alcohol use Smoker Anxiety Abscess of lung Bilateral pneumonia Deep vein thrombosis of left lower extremity COPD (chronic obstructive pulmonary disease) History of substance abuse Epidermal cyst Pulmonary emphysema Surgical History History of laparoscopic cholecystectomy (~08/19/22) Family History Father CVD (cardiovascular disease) Mother Rheumatoid arthritis Sister No problems noted. Maternal Uncle Prostate cancer Maternal Uncle Lung cancer Colon cancer Social History Household Members: Other Housing: House Housing Other:: with roomate Are you a primary career services director to a significant other at home: No Do you presently have visiting nurse or other home services: No Alcohol intake: current Alcohol intake frequency: 3 or more drinks per day Alcohol type: beer Comment: patent refusing all alarms Patient Tobacco Use Status: Current everyday Tobacco user Tobacco use type: Cigarette Cigarette Packs Per Day: 2 Cigarettes Per Day: 40.0 Years Smoked: 31 e-Cigarette/Vaping Use: Never Used Second Hand Smoke Exposure: Yes service: No Current occupational status: employed Current occupation: rt hand / golf course Cognitive needs: No Hearing needs: No Vision needs: Yes Review of Systems Const Denies daytime sleepiness, Denies excessive sweating, Denies fatigue, Denies fever(s), Denies lethargy, Denies malaise, Denies night sweats, Denies snoring and Denies weight loss Eyes Denies blurry vision and Denies itchy eyes ENT Denies nasal congestion, Denies post nasal drip, Denies sinus pain, Denies sinus pressure and Denies other ( Thrush) Card Denies chest pain, Denies pedal edema, Denies dyspnea, Reports dyspnea on exertion, Denies orthopnea and Denies paroxysmal nocturnal dyspnea Resp Denies cough, Denies hemoptysis, Denies excessive phlegm production, Denies dyspnea, Reports dyspnea on exertion, Denies snoring and Denies wheezing GI Denies abdominal pain and Denies heartburn Musc Denies myalgias, Denies arthralgias and Denies joint swelling Skin/Breast Denies rash Neuro Denies memory loss and Denies seizure-like activity Psych Denies abnormal sleep pattern, Denies anxiety and Denies memory loss Endo Denies excessive sweating, Denies fatigue and Denies heat intolerance Shlomo/Lymph Denies easy bruising Aller/Immun Denies itchy eyes, Denies seasonal rhinorrhea and Denies wheezing Physical Exam Vital Signs: Last Vital Signs Pulse 94 09/24/23 14:06 BP 102/62 09/24/23 14:06 Pulse Ox 92 09/24/23 14:06 Oxygen Delivery Method Room Air 09/24/23 14:06 BMI result Body Mass Index 19.5 Const General: no acute distress and alert Nutritional Appearance: malnourished Orientation/consciousness: Other orientation findings ( oriented) HEENT Head: Yes atraumatic Eyes General: appearance normal, both eyes and all related structures Sclerae: sclerae normal EOM: EOMs intact bilaterally Neck Neck: Yes supple Lymphatic: no lymphadenopathy noted Resp Effort & Inspection: normal respiratory effort and no use of accessory muscles Auscultation: clear to auscultation bilaterally Cardio Rate: regular rate Rhythm: regular rhythm Heart sounds: no gallops, no murmurs and no rubs Skin General skin exam: other ( warm) Extrem General: No clubbing, No cyanosis and No edema Assessment & Plan Assessment & Plan (1) COPD exacerbation: Code(s): J44.1 - Chronic obstructive pulmonary disease with (acute) exacerbation Plan: Worsening control on Duonebs and prednisone 5mg daily. Will add Brovana. Medications: New arformoterol (Brovana) 2 mL inhalation BID 360 mL 4RF 90 days Changed From prednisone 5 mg PO DAILY To prednisone 5 mg PO DAILY 90 tabs 4RF 90 days From ipratropium-albuterol 0.5 mg-3 mg(2.5 mg base)/3 mL 3 mL inhalation Q6-8H 30 days PRN 180 mL 6RF wheezing J44.9 - Chronic obstructive pulmonary disease, unspecified To ipratropium-albuterol 0.5 mg-3 mg(2.5 mg base)/3 mL 3 mL inhalation Q6-8H PRN 540 mL 4RF wheezing 90 days J44.9 - Chronic obstructive pulmonary disease, unspecified Coding Level of Care Code Est Pt Level 3 (77426) Diagnoses COPD exacerbation J44.1
== END 2023-09-24 14:22 | disposition home or self-care (01) ==
PROVIDERS: PCP Internal Medicine; Visit Provider Internal Medicine Pulmonary Disease
DX: J44.1 Chronic obstructive pulmonary disease with (acute) exacerbation (principal)
CPT/HCPCS: 99213

== ENCOUNTER → 2023-09-24 13:57 | Outpatient (BNVA) | payer OTHER, SELFPAY | PROVIDERS: PCP Internal Medicine; Visit Provider Internal Medicine Pulmonary Disease | DX: J44.1 Chronic obstructive pulmonary disease with (acute) exacerbation (principal) | CPT/HCPCS: 99212 ==

== ENCOUNTER → 2023-10-13 12:48 | Outpatient (REF) | payer OTHER, SELFPAY ==
--- NOTE | 2023-10-13 12:53 | CA_ITS ---
Transthoracic Echocardiogram Patient (Last, First, Middle): Yan Hooks J Gender: Male Date of : 1970 Age: 53 Procedure Date: 10/13/2023 Procedure Type: Transthoracic Echocardiogram Location: OP Height: 182.88 cm Weight: 61.24 kg BSA: 1.80 m2 Heart Rate: 92 bpm BP: 108 / 64 mmHg Model Technician: SB Referring MD: Grisel Stringer FOOD CRITIC Requisition Approver: Ulisses Le MD Symptoms: R06.02 - Shortness of breath Study Quality: Adequate ECG Rhythm: Sinus Conclusions: - 1. Normal LV ejection fraction of 55-60% with grade 1 diastolic dysfunction 2. Trace mitral regurgitation 3. Normal RV systolic pressure 4. No gross pericardial effusion Findings Left Ventricle Normal left ventricular size, thickness, and systolic function. The visually estimated ejection fraction is between 55-60%. Spectral Doppler is indicative of an impaired relaxation filling pattern. E/E prime ratio is <8, consistent with normal filling pressures. Evidence suggests grade I (mild) diastolic dysfunction. Prominent LV false tendon noted, normal variant. Right Ventricle Normal right ventricular cavity size and systolic function. Atria Both atria are normal in size. Aortic Valve Normal aortic valve structure and function. There is no aortic valve stenosis. There is no aortic valve regurgitation. Mitral Valve Normal mitral valve structure and function. There is trace mitral valve regurgitation. There is no mitral valve stenosis. Pulmonic Valve The pulmonic valve is likely normal. There is trace pulmonic valve regurgitation. Tricuspid Valve Normal tricuspid valve structure. There is trace tricuspid valve regurgitation. The right ventricular systolic pressure is normal. The right ventricular systolic pressure is 32 mmHg. Normal right atrial pressure. There is no evidence of pulmonary hypertension. Great Vessels All visible segments of the aorta are normal in size. The pulmonary artery was not well visualized. There is no dilatation of the ascending aorta measuring 3.10 cm. Venous The inferior vena cava is normal in size and collapses greater than 50% with inspiration. Pericardium/Pleural There is no evidence of pericardial effusion. Prior Study Comparison No significant change compared to prior study dated: 08/15/2022. Measurements 2D Linear Measurements IVSd: 0.80 0.6-0.9/0.6-1.0 cm LVIDd: 4.64 3.9-5.3/4.2-5.9 cm LVIDd Index: 2.58 2.4-3.2/2.2-3.1 cm/m2 LVIDs: 3.15 2.0-3.6 cm LVPWd: 0.83 0.7-1.1 cm LA Diam: 3.30 2.7-3.8/3.0-4.0 cm LAIDs Index: 1.83 1.5-2.3 cm/m2 LV Mass: 151.60 67-162/88-224 g LV Mass Index: 84.22 43-95/49-115 g/m2 LVOT Diam: 2.50 3.0+(-)1.3 cm Mitral Valve MV Pk E: 0.63 MV PK A: 0.78 E/A: 0.80 E'Lateral: 9.20 E'Medial: 7.71 E/E' Med: 8.20 E/E' Lat: 6.80 Aortic Valve AoV Pk Felipe: 0.84 AoV Pk Grad: 3.00 PORSHA: 3.88 LVOT LVOT Pk Felipe: 0.72 LVOT Mn Felipe: 0.47 LVOT VTI: 0.12 LVOT Pk Grad: 2.00 LVOT Mn Grad: 1.00 LVOT Diam: 2.50 LVOT Area: 4.91 Diastolic Function MV Pk E: 0.63 MV Pk A: 0.78 E/A: 0.80 E'Medial: 7.71 E/E' Med: 8.20 E' Laterial: 9.20 E/E' Lat: 6.80 Right Ventricle TAPSE (mm): 21.30 TVS' Felipe: 10.80 Tricuspid Valve TR Pk Felipe: 2.71 TR Pk Grad: 29.00 RA Press: 3.00 RVSP: 32.00 Great Vessels Aorta Sinus of Valsalva: 3.80 2.0-3.5 cm Ao Asc: 3.10 2.1-3.4 cm Pulmonary Valve PV Pk Felipe: 0.60 Peak PV Grad: 1.00 Updated in Other Vendor System with Status of Final Ulisses Le MD electronically signed on 10/14/2023 8:55:29 AM with status of Final
== END ==
LOC: HO.CARD 12:48
PROVIDERS: PCP Internal Medicine; Visit Provider Nurse Practitioner
DX: R06.02 Shortness of breath (principal)
CPT/HCPCS: 93306

== ENCOUNTER → 2023-10-13 12:53 | Outpatient (BNV) | payer OTHER, SELFPAY | PROVIDERS: PCP Internal Medicine; Visit Provider Internal Medicine Cardiovascular Disease | DX: I34.0 Nonrheumatic mitral (valve) insufficiency (principal) | CPT/HCPCS: 93306 ==

== ENCOUNTER 2023-11-11 11:44 | Emergency (ER) | payer OTHER, SELFPAY ==
[2023-11-11 11:49] VITALS: BP 129/87; PULSE 98; RESP 16; TEMP 36.8; O2SAT 95; BMI 17.6
--- NOTE | 2023-11-11 11:52 | ED_ITS ---
HPI - General Adult General Stated complaint: diff breathing, fall Related Data Home Medications ?Medication ?Instructions ?Recorded ?Confirmed buprenorphine 8 mg-naloxone 2 mg 2 film sublingual DAILY 08/10/20 10/26/23 sublingual film (Suboxone) multivitamin 1 tab PO DAILY 09/05/21 10/26/23 Previous Rx's ?Medication ?Instructions ?Recorded walker #1 ea 02/14/23 SHOWER CHAIR #1 ea 03/09/23 hydroxychloroquine 200 mg tablet 200 mg PO BID #180 tabs 04/28/23 apixaban 5 mg tablet (Eliquis) 5 mg PO BID 30 days #60 tabs 08/14/23 albuterol sulfate 90 mcg/actuation 2 puff inhalation Q4-6H PRN 08/19/23 aerosol inhaler shortness of breath or wheezing 30 days #1 ea arformoterol 15 mcg/2 mL solution 2 ml inhalation BID 90 days #360 mL 09/24/23 for nebulization (Brovana) ipratropium 0.5 mg-albuterol 3 mg 3 ml inhalation Q6-8H PRN wheezing 09/24/23 (2.5 mg base)/3 mL nebulization 90 days #540 mL soln prednisone 5 mg tablet 5 mg PO DAILY 90 days #90 tabs 09/24/23 Allergies Allergy/AdvReac Type Severity Reaction Status Date / Time Sulfa (Sulfonamide AdvReac Intermediate NAUSEA & Verified 11/11/23 11:54 Antibiotics) VOMITING [SULFA (SULFONAMIDE ANTIBIOTICS)] doxycycline AdvReac Mild Vomiting Verified 11/11/23 11:54 [facility] Past Medical History Medical History (Updated 09/23/23 @ 15:25 by Grisel Stringer NP) Shortness of breath on exertion Chronic kidney disease, stage III (moderate) AA (alcohol abuse) Pneumonia with cavity of lung Elevated LFTs Chronic deep vein thrombosis (DVT) of left lower extremity Bilateral leg weakness Alcohol withdrawal Abnormal EKG Lung abscess Abdominal hernia Varicose veins of both lower extremities Alcohol use Smoker Anxiety Abscess of lung Bilateral pneumonia Deep vein thrombosis of left lower extremity COPD (chronic obstructive pulmonary disease) History of substance abuse Epidermal cyst Pulmonary emphysema Surgical History History of laparoscopic cholecystectomy (~08/19/22) Family History Family History Father CVD (cardiovascular disease) Mother Rheumatoid arthritis Sister No problems noted. Maternal Uncle Prostate cancer Maternal Uncle Lung cancer Colon cancer Social History Social History Household Members: Other Housing: House Housing Other:: with roomate Are you a primary acute care physical therapist to a significant other at home: No Do you presently have visiting nurse or other home services: No Alcohol intake: current Alcohol intake frequency: 3 or more drinks per day Alcohol type: beer Comment: patent refusing all alarms Patient Tobacco Use Status: Current everyday Tobacco user Tobacco use type: Cigarette Cigarette Packs Per Day: 2 Cigarettes Per Day: 40.0 Years Smoked: 31 e-Cigarette/Vaping Use: Never Used Second Hand Smoke Exposure: Yes service: No Current occupational status: employed Current occupation: rt hand / golf course Cognitive needs: No Hearing needs: No Vision needs: Yes Course Course Course Narrative: NESSA- 53-year-old male presents for evaluation of frequent falls, weakness. He also endorses shortness of breath. The patient is underweight, but in no acute distress. He has a history of COPD, chronic kidney disease, alcohol abuse lupus, BPH, peripheral artery disease. Plan for labs, EKG, x-ray, CT brain Discharge Plan Discharge Prescriptions: No Action hydroxychloroquine 200 mg tablet 200 mg PO BID Qty: 180 1RF Eliquis 5 mg tablet 5 mg PO BID 30 Days Qty: 60 5RF albuterol sulfate 90 mcg/actuation HFA aerosol inhaler 2 puff inhalation Q4-6H PRN (Reason: shortness of breath or wheezing) 30 Days Qty: 1 6RF multivitamin Tablet 1 tab PO DAILY (DME) [facility] See Rx Instructions .ROUTE .MEDSUPPLY Qty: 1 0RF Rx Instructions: As directed buprenorphine-naloxone [Suboxone] 8-2 mg film 2 film sublingual DAILY (DME) SHOWER CHAIR See Rx Instructions .Route .MEDSUPPLY Qty: 1 0RF Rx Instructions: As directed prednisone 5 mg tablet 5 mg PO DAILY 90 Days Qty: 90 4RF ipratropium-albuterol 0.5 mg-3 mg(2.5 mg base)/3 mL solution for nebulization 3 ml inhalation Q6-8H PRN (Reason: wheezing) 90 Days Qty: 540 4RF arformoterol [Brovana] 15 mcg/2 mL solution for nebulization 2 ml inhalation BID 90 Days Qty: 360 4RF Print Language: Faroese
--- NOTE | 2023-11-11 12:03 | MHC.EDTECH ---
Attempted to call pt to have EKG and Bloodwork done. Pt was smoking outside and security came to tell pt is is not allowed. Pt got upset and refused to come in. Pt got in car and left. RN and provider notified.
== END 2023-11-11 12:09 | disposition left against medical advice (07) ==
PROVIDERS: Emergency Provider Emergency Medicine; PCP Internal Medicine
DX: R06.00 Dyspnea, unspecified (principal); R06.02 Shortness of breath; J44.9 Chronic obstructive pulmonary disease, unspecified; Z91.81 History of falling; R63.6 Underweight; N18.30 Chronic kidney disease, stage 3 unspecified; M32.9 Systemic lupus erythematosus, unspecified
CPT/HCPCS: 99281

== ENCOUNTER 2023-11-17 06:53 | Emergency (ER) | payer OTHER, SELFPAY ==
[2023-11-17 06:55] VITALS: BP 143/89; PULSE 104; RESP 20; TEMP 36.6; O2SAT 96; BMI 19.0
[2023-11-17 07:33] LABS: MANUAL DIFF FLAG NO
[2023-11-17 07:35] LABS: Basophils Absolute Auto 0.1 X10*3/uL (0.0-0.2); Basophils Percent Auto 0.6 % (0-2); Eosinophils Absolute Auto 0.2 X10*3/uL (0.0-0.4); Eosinophils Percent Auto 1.8 % (0-4); Hematocrit 28.5 % (42.0-52.0); Imm Gran Pct Auto 1.2 % (0.0-0.4); Lymphocytes Absolute Auto 1.1 X10*3/uL (1.2-4.9); Lymphocytes Percent Auto 12.9 % (20-40); Mean Corpuscular Volume 78.7 fL (80.0-98.0); Monocytes Absolute Auto 0.8 X10*3/uL (0.1-1.2); Monocytes Percent Auto 9.9 % (2-11); Neutrophils Absolute Auto 6.1 x10*3/uL (2.0-8.3); Neutrophils Percent Auto 73.6 % (45-73); Platelet Count 190 X10*3/uL (160-400); Red Blood Count 3.62 X10*6/uL (4.60-5.80); Red Cell Distribution Width 17.3 % (11.0-16.0); White Blood Count 8.2 X10*3/uL (4.8-10.8)
--- NOTE | 2023-11-17 07:39 | ED_ITS ---
HPI - URI/Sore Throat General Chief Complaint: Upper Respiratory Symptoms Stated Complaint: leg pain/breathing issues Time Seen by Provider: 11/17/23 07:23 Source: patient and old records reviewed Mode of arrival: ambulatory Limitations: no limitations History of Present Illness ED Provider: BESSY RAJPUT Narrative: 53 yo male with PMH of alcohol abuse, leg edema, COPD steroid dependent, CKD, alcoholic hepatitis and pancreatitis, PAD, DVT on eliquis, on suboxone, lupus on plaquenil here with c/o Related Data Home Medications ?Medication ?Instructions ?Recorded ?Confirmed buprenorphine 8 mg-naloxone 2 mg 2 film sublingual DAILY 08/10/20 10/26/23 sublingual film (Suboxone) multivitamin 1 tab PO DAILY 09/05/21 10/26/23 Previous Rx's ?Medication ?Instructions ?Recorded walker #1 ea 02/14/23 SHOWER CHAIR #1 ea 03/09/23 hydroxychloroquine 200 mg tablet 200 mg PO BID #180 tabs 04/28/23 apixaban 5 mg tablet (Eliquis) 5 mg PO BID 30 days #60 tabs 08/14/23 albuterol sulfate 90 mcg/actuation 2 puff inhalation Q4-6H PRN 08/19/23 aerosol inhaler shortness of breath or wheezing 30 days #1 ea arformoterol 15 mcg/2 mL solution 2 ml inhalation BID 90 days #360 mL 09/24/23 for nebulization (Brovana) ipratropium 0.5 mg-albuterol 3 mg 3 ml inhalation Q6-8H PRN wheezing 09/24/23 (2.5 mg base)/3 mL nebulization 90 days #540 mL soln prednisone 5 mg tablet 5 mg PO DAILY 90 days #90 tabs 09/24/23 Allergies Allergy/AdvReac Type Severity Reaction Status Date / Time Sulfa (Sulfonamide AdvReac Intermediate NAUSEA & Verified 11/17/23 07:01 Antibiotics) VOMITING [SULFA (SULFONAMIDE ANTIBIOTICS)] doxycycline AdvReac Mild Vomiting Verified 11/17/23 07:01 [facility] Past Medical History Attestation statement: The following information was validated with the patient. Source: old records reviewed Medical History Shortness of breath on exertion Chronic kidney disease, stage III (moderate) AA (alcohol abuse) Pneumonia with cavity of lung Elevated LFTs Chronic deep vein thrombosis (DVT) of left lower extremity Bilateral leg weakness Alcohol withdrawal Abnormal EKG Lung abscess Abdominal hernia Varicose veins of both lower extremities Alcohol use Smoker Anxiety Abscess of lung Bilateral pneumonia Deep vein thrombosis of left lower extremity COPD (chronic obstructive pulmonary disease) History of substance abuse Epidermal cyst Pulmonary emphysema Surgical History History of laparoscopic cholecystectomy (~08/19/22) Family History Family History Father CVD (cardiovascular disease) Mother Rheumatoid arthritis Sister No problems noted. Maternal Uncle Prostate cancer Maternal Uncle Lung cancer Colon cancer Social History Social History Household Members: Other Housing: House Housing Other:: with roomate Are you a primary post acute care nurse practitioner to a significant other at home: No Do you presently have visiting nurse or other home services: No Alcohol intake: current Alcohol intake frequency: 3 or more drinks per day Alcohol type: beer Comment: patent refusing all alarms Patient Tobacco Use Status: Current everyday Tobacco user Tobacco use type: Cigarette Cigarette Packs Per Day: 2 Cigarettes Per Day: 40.0 Years Smoked: 31 e-Cigarette/Vaping Use: Never Used Second Hand Smoke Exposure: Yes Advance Directives: No Advance Directives Information Provided: No Do you have a plan to hurt others: No Plan service: No Current occupational status: employed Current occupation: rt hand / golf course Cognitive needs: No Hearing needs: No Vision needs: Yes Physical Exam 2 Vital Signs: Vital Signs: Last Vital Signs Temp 97.9 F 11/17/23 06:55 Pulse 104 H 11/17/23 06:55 Resp 20 11/17/23 06:55 BP 143/89 H 11/17/23 06:55 Pulse Ox 96 11/17/23 06:55 O2 Del Method Room Air 11/17/23 06:55 BMI result Body Mass Index 19.0 Medical Decision Making Medical Decision Making MDM Narrative: 53 yo male with PMH of alcohol abuse, leg edema, COPD steroid dependent, CKD, alcoholic hepatitis and pancreatitis, PAD, DVT on eliquis, on suboxone, lupus on plaquenil here with c/o Differential Diagnosis Differential Diagnoses: The differential diagnosis associated with the presentation includes Admission/Observation Consideration of admission/observation: Escalation of care including admission/observation considered Lab Data MDM Lab Attestation statement: I reviewed the patient's lab results. 11/17/23 07:26 11/17/23 07:26 Independent Interpretation I performed an independent interpretation of an: Plain X-Ray Radiology Impression Discussion of test interpretation with radiology: I have reviewed the radiologist's reading. External Record Review External record reviewed: Inpatient record Discharge Plan Discharge Prescriptions: No Action hydroxychloroquine 200 mg tablet 200 mg PO BID Qty: 180 1RF Eliquis 5 mg tablet 5 mg PO BID 30 Days Qty: 60 5RF albuterol sulfate 90 mcg/actuation HFA aerosol inhaler 2 puff inhalation Q4-6H PRN (Reason: shortness of breath or wheezing) 30 Days Qty: 1 6RF multivitamin Tablet 1 tab PO DAILY (DME) walker Misc See Rx Instructions .ROUTE .MEDSUPPLY Qty: 1 0RF Rx Instructions: As directed buprenorphine-naloxone [Suboxone] 8-2 mg film 2 film sublingual DAILY (DME) SHOWER CHAIR See Rx Instructions .Route .MEDSUPPLY Qty: 1 0RF Rx Instructions: As directed prednisone 5 mg tablet 5 mg PO DAILY 90 Days Qty: 90 4RF ipratropium-albuterol 0.5 mg-3 mg(2.5 mg base)/3 mL solution for nebulization 3 ml inhalation Q6-8H PRN (Reason: wheezing) 90 Days Qty: 540 4RF arformoterol [Brovana] 15 mcg/2 mL solution for nebulization 2 ml inhalation BID 90 Days Qty: 360 4RF Print Language: Nauruan
[2023-11-17 07:44] LABS: Hemoglobin 9.4 g/dl (14.0-18.0)
[2023-11-17 07:51] LABS: Alanine Aminotransferase 17 U/L (0-40); Albumin Level 2.5 g/dL (3.5-5.0); Alkaline Phosphatase 371 U/L (39-117); Anion Gap 13 (12-20); Aspartate Amino Transferase 67 U/L (5-37); Bilirubin Total 0.2 mg/dL (0.0-1.0); Blood Urea Nitrogen < 3 mg/dL (9-16); Calcium 7.7 mg/dL (8.4-10.2); Carbon Dioxide 23 mmol/L (22-29); Chloride 97 mmol/L (96-108); Creatinine Clr Calc Pharmacy 147.5; Estimated Glomerular Filt Rate > 60; Glucose Random 85 mg/dL (60-115); Potassium 3.9 mmol/L (3.3-5.1); Sodium 129 mmol/L (135-145); Total Protein 7.3 g/dL (6.5-8.0)
--- NOTE | 2023-11-17 07:57 | PC.NURSE ---
this RN was appraohed by the patient that he needed to leave, this RN advised that patient should stay until his results are back. Pt asked provider to call with results, education given that if he leaves AMA they do not call with results. Pt still wanting to leave, telling us to open the door. provider aware
[2023-11-17 08:03] LABS: COVID-19 Test Negative (Negative); IDNOW Serial# 08D9AD1C; IDNOW Serial# 152EDE1D; Influenza A Negative (Negative); Influenza B2 Negative (Negative)
[2023-11-17 08:16] VITALS: BP 0/0; PULSE 0; RESP 0; TEMP -17.7; TEMP 0; O2SAT 0
== END 2023-11-17 08:17 | disposition left against medical advice (07) ==
PROVIDERS: Emergency Provider Emergency Medicine; PCP Internal Medicine
DX: M79.606 Pain in leg, unspecified (principal); R05.9 Cough, unspecified; R53.1 Weakness; Z53.21 Procedure and treatment not carried out due to patient leaving prior to being seen by health care provider
CPT/HCPCS: 80053; 85025; 87502; 87635; 99282; 99283

== ENCOUNTER 2023-11-23 12:40 | Emergency (ER) | payer OTHER, SELFPAY | END 2023-11-23 15:52 | disposition left against medical advice (07) | LOC: HO.ED 14:22 | PROVIDERS: Emergency Provider Emergency Medicine; PCP Internal Medicine | DX: Z53.21 Procedure and treatment not carried out due to patient leaving prior to being seen by health care provider (principal); R06.9 Unspecified abnormalities of breathing ==

== ENCOUNTER 2023-11-27 14:28 | Emergency (ER) | payer OTHER, SELFPAY ==
--- NOTE | 2023-11-27 15:17 | ED_ITS ---
HPI - General Adult General Chief complaint: Dyspnea Stated complaint: LEG PAIN, SOB Time Seen by Provider: 11/27/23 16:42 Related Data Home Medications ?Medication ?Instructions ?Recorded ?Confirmed buprenorphine 8 mg-naloxone 2 mg 2 film sublingual DAILY 08/10/20 10/26/23 sublingual film (Suboxone) multivitamin 1 tab PO DAILY 09/05/21 10/26/23 Previous Rx's ?Medication ?Instructions ?Recorded walker #1 ea 02/14/23 SHOWER CHAIR #1 ea 03/09/23 hydroxychloroquine 200 mg tablet 200 mg PO BID #180 tabs 04/28/23 apixaban 5 mg tablet (Eliquis) 5 mg PO BID 30 days #60 tabs 08/14/23 albuterol sulfate 90 mcg/actuation 2 puff inhalation Q4-6H PRN 08/19/23 aerosol inhaler shortness of breath or wheezing 30 days #1 ea arformoterol 15 mcg/2 mL solution 2 ml inhalation BID 90 days #360 mL 09/24/23 for nebulization (Brovana) ipratropium 0.5 mg-albuterol 3 mg 3 ml inhalation Q6-8H PRN wheezing 09/24/23 (2.5 mg base)/3 mL nebulization 90 days #540 mL soln prednisone 5 mg tablet 5 mg PO DAILY 90 days #90 tabs 09/24/23 albuterol sulfate 90 mcg/actuation 2 puff inhalation Q4-6H PRN 11/27/23 aerosol inhaler (ProAir HFA) shortness of breath or wheezing #8.5 grams amoxicillin 875 mg-potassium 1 tab PO BID #20 tabs 11/27/23 clavulanate 125 mg tablet levofloxacin 500 mg tablet 500 mg PO DAILY 10 days #10 tabs 11/27/23 Allergies Allergy/AdvReac Type Severity Reaction Status Date / Time Sulfa (Sulfonamide AdvReac Intermediate NAUSEA & Verified 11/27/23 19:54 Antibiotics) VOMITING [SULFA (SULFONAMIDE ANTIBIOTICS)] doxycycline AdvReac Mild Vomiting Verified 11/27/23 19:54 [facility] Past Medical History Medical History Shortness of breath on exertion Chronic kidney disease, stage III (moderate) AA (alcohol abuse) Pneumonia with cavity of lung Elevated LFTs Chronic deep vein thrombosis (DVT) of left lower extremity Bilateral leg weakness Alcohol withdrawal Abnormal EKG Lung abscess Abdominal hernia Varicose veins of both lower extremities Alcohol use Smoker Anxiety Abscess of lung Bilateral pneumonia Deep vein thrombosis of left lower extremity COPD (chronic obstructive pulmonary disease) History of substance abuse Epidermal cyst Pulmonary emphysema Surgical History History of laparoscopic cholecystectomy (~08/19/22) Family History Family History Father CVD (cardiovascular disease) Mother Rheumatoid arthritis Sister No problems noted. Maternal Uncle Prostate cancer Maternal Uncle Lung cancer Colon cancer Social History Social History Household Members: Other Housing: House Housing Other:: with roomate Are you a primary skin care therapist to a significant other at home: No Do you presently have visiting nurse or other home services: No Alcohol intake: current Alcohol intake frequency: 3 or more drinks per day Alcohol type: beer Comment: patent refusing all alarms Patient Tobacco Use Status: Current everyday Tobacco user Tobacco use type: Cigarette Cigarette Packs Per Day: 2 Cigarettes Per Day: 40.0 Years Smoked: 31 Smoked in Last 30 Days: Yes e-Cigarette/Vaping Use: Never Used Second Hand Smoke Exposure: Yes Use of substances other than those prescribed or required for medical reasons: No Advance Directives: No Advance Directives Information Provided: No Do you have a plan to hurt others: No Plan service: No Current occupational status: employed Current occupation: rt hand / golf course Cognitive needs: No Hearing needs: No Vision needs: Yes Physical Exam ED Vital Signs: Vital Signs - 24 hr 11/27/23 15:20 Temperature 98.2 F Pulse Rate 116 H Respiratory Rate 18 Blood Pressure 102/75 Pulse Oximetry 92 Oxygen Delivery Method Room Air BMI result Body Mass Index 19.0 Course Course Course Narrative: This is an RME performed by Celia Marie CNP: Additional HPI, ROS, PE not included below will be deferred to primary provider. Patient is a 53-year-old male who presents emergency department for evaluation of shortness of breath for a couple of months progressively worsening, bilateral lower extremity pain, swelling. Reports history of DVT, states he has been compliant with his Eliquis Physical exam: Lung sounds diminished bilaterally. left greater than right lower extremity swelling. Subjective report of worsening pain to the right however. On palpation right lower extremity is cooler to touch than left, unable to palpate DP/PT pulse bilaterally. 2+ pitting edema of the right 3+ pitting edema on the left. Right foot with Doppler signal DP, left foot with Doppler signal PT. bilateral upper and lower extremity superficial abrasions, right lower extremity with weeping ulcerations Medical Decision Making Lab Data 11/27/23 16:14 11/27/23 16:14 Labs: Lab Results 11/27/23 Range/Units 16:14 WBC 8.7 (4.8-10.8) X10*3/uL RBC 3.89 L (4.60-5.80) X10*6/uL Hgb 10.2 L (14.0-18.0) g/dl Hct 30.6 L (42.0-52.0) % MCV 78.7 L (80.0-98.0) fL MCH 26.2 L (27.0-33.0) pg MCHC 33.3 (31.0-36.0) g/dl RDW 18.7 H (11.0-16.0) % Plt Count 199 (160-400) X10*3/uL MPV 10.1 (9.4-12.4) fL Immature Gran % (Auto) 0.3 (0.0-0.4) % Neut % (Auto) 82.7 H (45-73) % Lymph % (Auto) 7.7 L (20-40) % [place] % (Auto) 8.9 (2-11) % Eos % (Auto) 0.2 (0-4) % Baso % (Auto) 0.2 (0-2) % Lymph # (Auto) 0.7 L (1.2-4.9) X10*3/uL [place] # (Auto) 0.8 (0.1-1.2) X10*3/uL Eos # (Auto) 0.0 (0.0-0.4) X10*3/uL Baso # (Auto) 0.0 (0.0-0.2) X10*3/uL Abs Immat Gran (auto) 0.03 (0.00-0.03) X10*3/uL Absolute Neuts (auto) 7.2 (2.0-8.3) x10*3/uL Absolute Nucleated RBC 0.000 (0.0-0.012) X10*3/uL Nucleated RBC % (auto) 0.0 (0.0-0.2) /100WBC PT 13.0 (11.1-13.3) SEC INR 1.1 (0.9-1.1) Sodium 125 L (135-145) mmol/L Potassium 3.7 (3.3-5.1) mmol/L Chloride 93 L (96-108) mmol/L Carbon Dioxide 24 (22-29) mmol/L Anion Gap 12 (12-20) BUN < 3 L (9-16) mg/dL Creatinine 0.49 L (0.5-1.4) mg/dL Estim Creat Clear Calc 156.5 Estimated GFR > 60 Random Glucose 85 (60-115) mg/dL Lactic Acid 1.4 (0.5-2.0) mmol/L Calcium 7.8 L (8.4-10.2) mg/dL Magnesium 1.6 (1.6-2.6) mg/dL Total Bilirubin 0.3 (0.0-1.0) mg/dL AST 37 (5-37) U/L ALT 14 (0-40) U/L Alkaline Phosphatase 246 H (39-117) U/L Troponin I High Sens 8.0 D (<3.5-35.0) ng/L B-Natriuretic Peptide 42 (<100) pg/mL Total Protein 7.8 (6.5-8.0) g/dL Albumin 2.4 L (3.5-5.0) g/dL Influenza Type A (PCR) NEGATIVE (Negative) Influenza Type B (PCR) NEGATIVE (Negative) RSV RNA Qual (PCR) NEGATIVE (Negative) SARS-CoV-2 RNA (RT-PCR) NEGATIVE (Negative) Discharge Plan Discharge Clinical Impression: Left leg swelling Patient Disposition: Left Against Medical Advice Prescriptions: No Action hydroxychloroquine 200 mg tablet 200 mg PO BID Qty: 180 1RF Eliquis 5 mg tablet 5 mg PO BID 30 Days Qty: 60 5RF albuterol sulfate 90 mcg/actuation HFA aerosol inhaler 2 puff inhalation Q4-6H PRN (Reason: shortness of breath or wheezing) 30 Days Qty: 1 6RF multivitamin Tablet 1 tab PO DAILY (DME) walker Misc See Rx Instructions .ROUTE .MEDSUPPLY Qty: 1 0RF Rx Instructions: As directed albuterol sulfate [ProAir HFA] 90 mcg/actuation HFA aerosol inhaler 2 puff inhalation Q4-6H PRN (Reason: shortness of breath or wheezing) Qty: 8.5 0RF amoxicillin-pot clavulanate 875-125 mg tablet 1 tab PO BID Qty: 20 0RF levofloxacin 500 mg tablet 500 mg PO DAILY 10 Days Qty: 10 0RF buprenorphine-naloxone [Suboxone] 8-2 mg film 2 film sublingual DAILY (DME) SHOWER CHAIR See Rx Instructions .Route .MEDSUPPLY Qty: 1 0RF Rx Instructions: As directed prednisone 5 mg tablet 5 mg PO DAILY 90 Days Qty: 90 4RF ipratropium-albuterol 0.5 mg-3 mg(2.5 mg base)/3 mL solution for nebulization 3 ml inhalation Q6-8H PRN (Reason: wheezing) 90 Days Qty: 540 4RF arformoterol [Brovana] 15 mcg/2 mL solution for nebulization 2 ml inhalation BID 90 Days Qty: 360 4RF Discharge Date/Time: 11/27/23 18:06 Print Language: Greek
[2023-11-27 15:20] VITALS: BP 102/75; PULSE 116; RESP 18; TEMP 36.8; O2SAT 92; BMI 19.0
[2023-11-27 16:24] LABS: MANUAL DIFF FLAG NO
[2023-11-27 16:27] LABS: Basophils Percent Auto 0.2 % (0-2); Eosinophils Percent Auto 0.2 % (0-4); Hematocrit 30.6 % (42.0-52.0); Hemoglobin 10.2 g/dl (14.0-18.0); Imm Gran Abs Auto 0.03 X10*3/uL (0.00-0.03); Imm Gran Pct Auto 0.3 % (0.0-0.4); Lymphocytes Absolute Auto 0.7 X10*3/uL (1.2-4.9); Lymphocytes Percent Auto 7.7 % (20-40); Mean Corpuscular HGB Conc 33.3 g/dl (31.0-36.0); Mean Corpuscular Hemoglobin 26.2 pg (27.0-33.0); Mean Corpuscular Volume 78.7 fL (80.0-98.0); Mean Platelet Volume 10.1 fL (9.4-12.4); Monocytes Absolute Auto 0.8 X10*3/uL (0.1-1.2); Monocytes Percent Auto 8.9 % (2-11); Neutrophils Absolute Auto 7.2 x10*3/uL (2.0-8.3); Neutrophils Percent Auto 82.7 % (45-73); Platelet Count 199 X10*3/uL (160-400); Red Blood Count 3.89 X10*6/uL (4.60-5.80); Red Cell Distribution Width 18.7 % (11.0-16.0); White Blood Count 8.7 X10*3/uL (4.8-10.8)
[2023-11-27 16:31] LABS: INTERNATIONAL NORM RATIO 1.1 (0.9-1.1)
[2023-11-27 16:39] LABS: Lactic Acid 1.4 mmol/L (0.5-2.0)
[2023-11-27 16:50] LABS: B Type Natriuretic Peptide 42 pg/mL (<100)
--- NOTE | 2023-11-27 16:50 | PC.NURSE ---
Upon entering room patient was refusing to change into hospital clothes and stated he was going to leave. Staff spoke with patient but he continued to want to leave, provider had not had a chance to speak with patient before they left.
[2023-11-27 16:51] LABS: Alanine Aminotransferase 14 U/L (0-40); Albumin Level 2.4 g/dL (3.5-5.0); Alkaline Phosphatase 246 U/L (39-117); Anion Gap 12 (12-20); Aspartate Amino Transferase 37 U/L (5-37); Bilirubin Total 0.3 mg/dL (0.0-1.0); Blood Urea Nitrogen < 3 mg/dL (9-16); Calcium 7.8 mg/dL (8.4-10.2); Carbon Dioxide 24 mmol/L (22-29); Chloride 93 mmol/L (96-108); Creatinine Clr Calc Pharmacy 156.5; Estimated Glomerular Filt Rate > 60; Glucose Random 85 mg/dL (60-115); Magnesium 1.6 mg/dL (1.6-2.6); Potassium 3.7 mmol/L (3.3-5.1); Sodium 125 mmol/L (135-145); Total Protein 7.8 g/dL (6.5-8.0)
[2023-11-27 17:07] LABS: Influenza A PCR NEGATIVE (Negative); Influenza B PCR NEGATIVE (Negative); Resp Syncy Virus RNA Qual PCR NEGATIVE (Negative); SARS COV2 PCR INHOUSE NEGATIVE (Negative)
== END 2023-11-27 18:06 | disposition left against medical advice (07) ==
PROVIDERS: Nurse Practitioner Family; Emergency Provider Emergency Medicine; PCP Internal Medicine
DX: R06.02 Shortness of breath (principal); M79.605 Pain in left leg; M79.604 Pain in right leg; Z86.718 Personal history of other venous thrombosis and embolism; Z79.01 Long term (current) use of anticoagulants; Z79.899 Other long term (current) drug therapy; Z03.818 Encounter for observation for suspected exposure to other biological agents ruled out
CPT/HCPCS: 0241U; 80053; 83605; 83735; 83880; 84484; 85025; 85610; 87040; 99281; 99283

== ENCOUNTER 2023-11-27 19:34 | Emergency (ER) | payer OTHER, SELFPAY ==
[2023-11-27 19:39] VITALS: BP 152/92; PULSE 150; O2SAT 85
[2023-11-27 19:51] VITALS: BP 142/84; PULSE 109; RESP 20; TEMP 36.7; O2SAT 90; BMI 19.0
--- NOTE | 2023-11-27 20:08 | PC.NURSE ---
Pt has suboxone on his person and is refusing to have it locked up. Pt requesting to leave. firefighter type one and provider Isaac made aware.
--- NOTE | 2023-11-27 20:58 | ED_ITS ---
HPI - General Adult General Chief complaint: Extremity Injury, Lower Stated complaint: Bilateral lower ext edema, Diff breathing,92% 2L Time Seen by Provider: 11/27/23 20:51 Source: patient Mode of arrival: ambulatory Limitations: no limitations History of Present Illness ED Provider: vita RAJPUT narrative: Patient 53 years old alcoholic with chronic bronchitis and hyponatremia comes here as he has feeling weak in the legs has a nonhealing wound in the right grace Related Data Home Medications ?Medication ?Instructions ?Recorded ?Confirmed buprenorphine 8 mg-naloxone 2 mg 2 film sublingual DAILY 08/10/20 10/26/23 sublingual film (Suboxone) multivitamin 1 tab PO DAILY 09/05/21 10/26/23 Previous Rx's ?Medication ?Instructions ?Recorded walker #1 ea 02/14/23 SHOWER CHAIR #1 ea 03/09/23 hydroxychloroquine 200 mg tablet 200 mg PO BID #180 tabs 04/28/23 apixaban 5 mg tablet (Eliquis) 5 mg PO BID 30 days #60 tabs 08/14/23 albuterol sulfate 90 mcg/actuation 2 puff inhalation Q4-6H PRN 08/19/23 aerosol inhaler shortness of breath or wheezing 30 days #1 ea arformoterol 15 mcg/2 mL solution 2 ml inhalation BID 90 days #360 mL 09/24/23 for nebulization (Brovana) ipratropium 0.5 mg-albuterol 3 mg 3 ml inhalation Q6-8H PRN wheezing 09/24/23 (2.5 mg base)/3 mL nebulization 90 days #540 mL soln prednisone 5 mg tablet 5 mg PO DAILY 90 days #90 tabs 09/24/23 albuterol sulfate 90 mcg/actuation 2 puff inhalation Q4-6H PRN 11/27/23 aerosol inhaler (ProAir HFA) shortness of breath or wheezing #8.5 grams amoxicillin 875 mg-potassium 1 tab PO BID #20 tabs 11/27/23 clavulanate 125 mg tablet levofloxacin 500 mg tablet 500 mg PO DAILY 10 days #10 tabs 11/27/23 Allergies Allergy/AdvReac Type Severity Reaction Status Date / Time Sulfa (Sulfonamide AdvReac Intermediate NAUSEA & Verified 11/27/23 19:54 Antibiotics) VOMITING [SULFA (SULFONAMIDE ANTIBIOTICS)] doxycycline AdvReac Mild Vomiting Verified 11/27/23 19:54 [facility] Past Medical History Medical History Shortness of breath on exertion Chronic kidney disease, stage III (moderate) AA (alcohol abuse) Pneumonia with cavity of lung Elevated LFTs Chronic deep vein thrombosis (DVT) of left lower extremity Bilateral leg weakness Alcohol withdrawal Abnormal EKG Lung abscess Abdominal hernia Varicose veins of both lower extremities Alcohol use Smoker Anxiety Abscess of lung Bilateral pneumonia Deep vein thrombosis of left lower extremity COPD (chronic obstructive pulmonary disease) History of substance abuse Epidermal cyst Pulmonary emphysema Surgical History History of laparoscopic cholecystectomy (~08/19/22) Family History Family History Father CVD (cardiovascular disease) Mother Rheumatoid arthritis Sister No problems noted. Maternal Uncle Prostate cancer Maternal Uncle Lung cancer Colon cancer Social History Social History Household Members: Other Housing: House Housing Other:: with roomate Are you a primary youth care worker to a significant other at home: No Do you presently have visiting nurse or other home services: No Alcohol intake: current Alcohol intake frequency: 3 or more drinks per day Alcohol type: beer Comment: patent refusing all alarms Patient Tobacco Use Status: Current everyday Tobacco user Tobacco use type: Cigarette Cigarette Packs Per Day: 2 Cigarettes Per Day: 40.0 Years Smoked: 31 Smoked in Last 30 Days: Yes e-Cigarette/Vaping Use: Never Used Second Hand Smoke Exposure: Yes Use of substances other than those prescribed or required for medical reasons: No Advance Directives: No Advance Directives Information Provided: No Do you have a plan to hurt others: No Plan service: No Current occupational status: employed Current occupation: rt hand / golf course Cognitive needs: No Hearing needs: No Vision needs: Yes Physical Exam ED Vital Signs: Vital Signs - 24 hr 11/27/23 19:51 11/27/23 21:20 Temperature 98.1 F 98.1 F Pulse Rate 109 H 109 H Respiratory Rate 20 20 Blood Pressure 142/84 H 142/84 H Pulse Oximetry 90 L 90 L Oxygen Delivery Method Room Air Room Air BMI result Body Mass Index 19.0 Medications Administered Discontinued Medications Generic Name Dose Route Start Last Admin Trade Name Freq PRN Reason Stop Dose Admin Amoxicillin/Clavulanate Potassium 875 mg 11/27/23 21:01 11/27/23 21:06 Amoxicillin/Potassium Clav 875 Mg Tablet PO 11/27/23 21:02 875 mg ONCE ONE Administration Levofloxacin 750 mg 11/27/23 21:03 11/27/23 21:06 Levofloxacin 750 Mg Tablet PO 11/27/23 21:04 750 mg ONCE ONE Administration Discharge Plan Discharge Clinical Impression: Chronic bronchitis, Infected wound, Alcohol use, Chronic hyponatremia Patient Disposition: Left Against Medical Advice Instructions: Hyponatremia (ED), Chronic Bronchitis (ED), Abuse of Alcohol (ED), Chronic Wounds (ED) Additional Instructions: Your signing out against medical advice without any imaging you may need IV antibiotics Take antibiotic as prescribed report back to the ER if you decide Stop drinking alcohol Prescriptions: New albuterol sulfate [ProAir HFA] 90 mcg/actuation HFA aerosol inhaler 2 puff inhalation Q4-6H PRN (Reason: shortness of breath or wheezing) Qty: 8.5 0RF amoxicillin-pot clavulanate 875-125 mg tablet 1 tab PO BID Qty: 20 0RF levofloxacin 500 mg tablet 500 mg PO DAILY 10 Days Qty: 10 0RF No Action hydroxychloroquine 200 mg tablet 200 mg PO BID Qty: 180 1RF Eliquis 5 mg tablet 5 mg PO BID 30 Days Qty: 60 5RF albuterol sulfate 90 mcg/actuation HFA aerosol inhaler 2 puff inhalation Q4-6H PRN (Reason: shortness of breath or wheezing) 30 Days Qty: 1 6RF multivitamin Tablet 1 tab PO DAILY (DME) [facility] See Rx Instructions .ROUTE .MEDSUPPLY Qty: 1 0RF Rx Instructions: As directed buprenorphine-naloxone [Suboxone] 8-2 mg film 2 film sublingual DAILY (DME) SHOWER CHAIR See Rx Instructions .Route .MEDSUPPLY Qty: 1 0RF Rx Instructions: As directed prednisone 5 mg tablet 5 mg PO DAILY 90 Days Qty: 90 4RF ipratropium-albuterol 0.5 mg-3 mg(2.5 mg base)/3 mL solution for nebulization 3 ml inhalation Q6-8H PRN (Reason: wheezing) 90 Days Qty: 540 4RF arformoterol [Brovana] 15 mcg/2 mL solution for nebulization 2 ml inhalation BID 90 Days Qty: 360 4RF Stand Alone Forms: Against Medical Advice Interventions: ED Discharge Assessment Last Done: 11/27/23 21:20 Discharge Date/Time: 11/27/23 21:25 Print Language: [place] Citizen
--- NOTE | 2023-11-27 20:58 | PC.NURSE ---
Provider with pt. Pt requesting to leave. Plan of care ongoing.
--- NOTE | 2023-11-27 21:04 | MHC.EDTECH ---
Pt refused wound cleaning, offered three times, refused three times.
[2023-11-27] MEDS: levoFLOXacin 750 MG TABLET PO (21:06)
[2023-11-27] MEDS: Amoxicillin/Potassium Clav 875 MG TABLET PO (21:06)
[2023-11-27 21:20] VITALS: BP 142/84; PULSE 109; RESP 20; TEMP 36.7; O2SAT 90
--- NOTE | 2023-11-27 21:23 | PC.NURSE ---
Provider aware of pts 02 sat of 90%. Pt refused vitals, chest xray, wound cleaning and bandage. Pt educated on the risks.
== END 2023-11-27 21:25 | disposition left against medical advice (07) ==
PROVIDERS: Emergency Provider Internal Medicine; PCP Internal Medicine
DX: J42 Unspecified chronic bronchitis (principal); R60.0 Localized edema; R06.02 Shortness of breath; E87.1 Hypo-osmolality and hyponatremia; F10.10 Alcohol abuse, uncomplicated; Y90.9 Presence of alcohol in blood, level not specified; Z79.899 Other long term (current) drug therapy
CPT/HCPCS: 99283; 99284

== ENCOUNTER 2023-12-16 15:49 | Inpatient (IN) | payer OTHER, SELFPAY ==
[2023-12-16] VITALS (8 sets, daily range): BP systolic 102–158; BP diastolic 67–81; PULSE 78–114; RESP 12–16; TEMP 36.6–37.1; O2SAT 93–98; BMI 16.7
--- NOTE | 2023-12-16 | ECG_ITS ---
Test Reason : WEAKNESS Blood Pressure : / mmHG Vent. Rate : 092 BPM Atrial Rate : 092 BPM P-R Int : 170 ms QRS Dur : 086 ms QT Int : 374 ms P-R-T Axes : 117 007 085 degrees QTc Int : 462 ms Normal sinus rhythm Cannot rule out Anterior infarct (cited on or before 05-SEP-2021) Abnormal ECG When compared with ECG of 11-FEB-2023 02:28, Premature supraventricular complexes are no longer Present Left anterior fascicular block is no longer Present Referred By: Generic ED Physician Electronically Signed By:ELLI PONCE MD
--- NOTE | ~2023-12-16 | XR_ITS ---
EXAMINATION: XR CHEST CLINICAL INFORMATION: Weakness. Cough. COMPARISON: Previous chest x-ray most recent June [address] January 2023 TECHNIQUE: Frontal view of the chest was obtained. FINDINGS: The cardiac and mediastinal contours are stable. The lungs are well-inflated suggestive of COPD. There are patchy areas of bronchial wall thickening and increased attenuation at the right lung base and throughout the left lung suggestive of bronchopneumonia. There is no significant pleural effusion. No pneumothorax. Bony structures unremarkable. XR/XR chest 1V IMPRESSION: Well inflated lungs and probable bilateral bronchopneumonia.
--- NOTE | ~2023-12-16 | US_ITS ---
EXAMINATION: US VENOUS ULTRASOUND WITH DOPPLER LOWER EXTREMITY, BILATERAL CLINICAL INFORMATION: Bilateral lower extremity edema, left greater than right COMPARISON: Bilateral lower extremity venous ultrasound 10/23/2022 TECHNIQUE: Ultrasound of the deep veins is performed from the hip to the calf with compression sonography and color and pulse Doppler assessment. Spectral analysis with color-flow imaging is performed. FINDINGS: RIGHT: There is normal venous compression and respiratory variation and augmented flow. The visualized common femoral vein, superficial femoral vein, profunda femoral vein, popliteal vein, and the trifurcation region shows no evidence of deep venous thrombosis. There is a 4.7 x 1.7 x 2.1 cm Mays's cyst present. LEFT: Again seen is predominantly nonocclusive thrombus noted in the left left common femoral vein extending to the femoral vein into the popliteal vein which appears somewhat eccentric and echogenic suggestive of chronicity, similar to prior. Thrombus appears occlusive in the mid femoral vein as it did on the prior exam. Again noted are prominent left groin lymph nodes. There is no significant popliteal fossa cyst. US/US venous duplex LE BI IMPRESSION: 1. No evidence of acute deep venous thrombosis in the right lower extremity. 2. No significant change in the appearance of the left lower extremity with chronic appearing thrombus in the left common femoral vein extending to the popliteal vein. Thrombus appears occlusive in the mid femoral vein as it did previously
--- NOTE | 2023-12-16 16:31 | PC.NURSE ---
patient [place] VIA EMS from front stoop, per EMS patient called stating that he was too weak to get inside and wanted to be brought to the hospital. patient initially argumentative with this RN and security, refusing to change into hospital attire, patient educated on procedure and was changed into hospital appropriate attire and placed on screen door maker by this RN. patient states he has recently been feeling weak and not himself, states he had 2 doctors appointments today but is unable to tell this RN what they were in regards to. patient states he smokes 4 packs of cigarettes a day, and goes to the suboxone clinic. admits to drinking 12 beers today and being a daily drinker, when asking if patient has ever detoxed from alchol in the past patient states zaid never stopped drinking so i dont know patient states today he felt generally unwell and weak, unable to disclose to this rn more information, also states his legs are significantly more swollen than they normally are, patient RLE edematous and discolored, which is new to him, LLE also has edma present and some moderate discoloration. patient placed on screen door maker, VSS at this time. provided with multiple warm blankets at his request. offering no complaints at this time awaiting MD perez
[2023-12-16 17:18] LABS: Appearance Urine Clear; Color Urine Yellow; Glucose Urine UA Negative (Negative); Leukocyte Esterase Urine Negative (Negative); Nitrite Urine Negative (Negative); Specific Gravity - Urine <= 1.005 (1.005-1.025); Urine Blood Negative (Negative); Urine Ketones Negative (Negative); Urine Protein Negative (Neg-Trace)
[2023-12-16 17:23] LABS: Amphetamine Screen Urine Not Detected (Not Detect); Barbiturates, Urine Not Detected (Not Detect); Benzodiazepines Screen Urine Not Detected (Not Detect); Buprenorphine Scr Positive (Not Detect); Cannabinoid Screen Urine Not Detected (Not Detect); Cocaine Screen Urine Not Detected (Not Detect); Fentanyl, urine Not Detected (Not Detect); Methadone Screen, Urine Not Detected (Not Detect); Opiate Screen Urine Not Detected (Not Detect); Oxycodone Screen Urine Not Detected (Not Detect); Phencyclidine Screen Urine Not Detected (Not Detect)
[2023-12-16] MEDS: 0.9 % Sodium Chloride 1,000 ML 999 ML IV (17:46)
[2023-12-16 17:50] LABS: MANUAL DIFF FLAG NO
[2023-12-16 17:58] LABS: Basophils Percent Auto 0.2 % (0-2); Eosinophils Absolute Auto 0.1 X10*3/uL (0.0-0.4); Eosinophils Percent Auto 0.7 % (0-4); Hemoglobin 7.9 g/dl (14.0-18.0); Imm Gran Abs Auto 0.06 X10*3/uL (0.00-0.03); Imm Gran Pct Auto 0.7 % (0.0-0.4); Lymphocytes Absolute Auto 0.9 X10*3/uL (1.2-4.9); Mean Corpuscular HGB Conc 32.9 g/dl (31.0-36.0); Mean Corpuscular Hemoglobin 26.3 pg (27.0-33.0); Mean Platelet Volume 9.5 fL (9.4-12.4); Monocytes Absolute Auto 0.7 X10*3/uL (0.1-1.2); Monocytes Percent Auto 7.4 % (2-11); Neutrophils Absolute Auto 7.5 x10*3/uL (2.0-8.3); Platelet Count 160 X10*3/uL (160-400); Red Cell Distribution Width 19.9 % (11.0-16.0); White Blood Count 9.2 X10*3/uL (4.8-10.8)
[2023-12-16 18:02] LABS: Ethanol 207 mg/dL
[2023-12-16 18:13] LABS: Alanine Aminotransferase 13 U/L (0-40); Alkaline Phosphatase 143 U/L (39-117); Anion Gap 14 (12-20); Aspartate Amino Transferase 32 U/L (5-37); Bilirubin Total 0.2 mg/dL (0.0-1.0); Calcium 7.1 mg/dL (8.4-10.2); Carbon Dioxide 20 mmol/L (22-29); Chloride 102 mmol/L (96-108); Estimated Glomerular Filt Rate > 60; Glucose Random 77 mg/dL (60-115); Lipase 14 U/L (8-78); Magnesium 1.5 mg/dL (1.6-2.6); Potassium 3.8 mmol/L (3.3-5.1); Sodium 132 mmol/L (135-145); Total Protein 6.7 g/dL (6.5-8.0)
[2023-12-16 18:28] LABS: Blood Urea Nitrogen 3 mg/dL (9-16)
--- NOTE | 2023-12-16 18:55 | ED_ITS ---
HPI - General Adult General Chief complaint: Weakness Stated complaint: NOT FEELING WELL Time Seen by Provider: 12/16/23 17:23 Source: patient Mode of arrival: EMS Limitations: no limitations History of Present Illness ED Provider: vita RAJPUT narrative: Patient alcoholic patient's history of COPD alcohol use disorder chronic DVT on Eliquis history of BREONNA and hyponatremia comes here for feeling increased weakness for last few days unable to ambulate because of weakness in the legs drinking alcohol had 12 packs of beer today patient does have a cavitatory pneumonia in 01/11 going downhill for last 6 months Related Data Home Medications ?Medication ?Instructions ?Recorded ?Confirmed buprenorphine 8 mg-naloxone 2 mg 2 film sublingual DAILY 08/10/20 10/26/23 sublingual film (Suboxone) multivitamin 1 tab PO DAILY 09/05/21 10/26/23 Previous Rx's ?Medication ?Instructions ?Recorded walker #1 ea 02/14/23 SHOWER CHAIR #1 ea 03/09/23 apixaban 5 mg tablet (Eliquis) 5 mg PO BID 30 days #60 tabs 08/14/23 albuterol sulfate 90 mcg/actuation 2 puff inhalation Q4-6H PRN 08/19/23 aerosol inhaler shortness of breath or wheezing 30 days #1 ea arformoterol 15 mcg/2 mL solution 2 ml inhalation BID 90 days #360 mL 09/24/23 for nebulization (Brovana) ipratropium 0.5 mg-albuterol 3 mg 3 ml inhalation Q6-8H PRN wheezing 09/24/23 (2.5 mg base)/3 mL nebulization 90 days #540 mL soln prednisone 5 mg tablet 5 mg PO DAILY 90 days #90 tabs 09/24/23 albuterol sulfate 90 mcg/actuation 2 puff inhalation Q4-6H PRN 11/27/23 aerosol inhaler (ProAir HFA) shortness of breath or wheezing #8.5 grams amoxicillin 875 mg-potassium 1 tab PO BID #20 tabs 11/27/23 clavulanate 125 mg tablet levofloxacin 500 mg tablet 500 mg PO DAILY 10 days #10 tabs 11/27/23 hydroxychloroquine 200 mg tablet 200 mg PO BID #180 tabs 12/14/23 Allergies Allergy/AdvReac Type Severity Reaction Status Date / Time Sulfa (Sulfonamide AdvReac Intermediate NAUSEA & Verified 12/16/23 16:09 Antibiotics) VOMITING [SULFA (SULFONAMIDE ANTIBIOTICS)] doxycycline AdvReac Mild Vomiting Verified 12/16/23 16:09 Review of Systems 2 Review of Systems: Yes all other systems are reviewed and are negative [facility] Past Medical History Medical History Shortness of breath on exertion Chronic kidney disease, stage III (moderate) AA (alcohol abuse) Pneumonia with cavity of lung Elevated LFTs Chronic deep vein thrombosis (DVT) of left lower extremity Bilateral leg weakness Alcohol withdrawal Abnormal EKG Lung abscess Abdominal hernia Varicose veins of both lower extremities Alcohol use Smoker Anxiety Abscess of lung Bilateral pneumonia Deep vein thrombosis of left lower extremity COPD (chronic obstructive pulmonary disease) History of substance abuse Epidermal cyst Pulmonary emphysema Surgical History History of laparoscopic cholecystectomy (~08/19/22) Family History Family History Father CVD (cardiovascular disease) Mother Rheumatoid arthritis Sister No problems noted. Maternal Uncle Prostate cancer Maternal Uncle Lung cancer Colon cancer Social History Social History Household Members: Friend(s) Household Members Other:: 1 friend Housing: Apartment Housing Other:: with roomate Are you a primary patient care technician instructor to a significant other at home: No Do you presently have visiting nurse or other home services: No Alcohol intake: current Alcohol intake frequency: 3 or more drinks per day Alcohol type: beer Comment: patent refusing all alarms Patient Tobacco Use Status: Current everyday Tobacco user Tobacco use type: Cigarette Cigarette Packs Per Day: 3 Cigarettes Per Day: 60.0 Years Smoked: 40 e-Cigarette/Vaping Use: Former Use Second Hand Smoke Exposure: Yes service: No Current occupational status: employed Current occupation: rt hand / golf course Cognitive needs: No Hearing needs: No Vision needs: Yes Physical Exam ED Vital Signs: Vital Signs - 24 hr 12/16/23 15:55 12/16/23 16:17 12/16/23 20:25 Temperature 98.4 F 97.8 F Pulse Rate 93 85 Respiratory Rate 12 12 16 Blood Pressure 102/67 119/75 Pulse Oximetry 96 98 Oxygen Delivery Method Room Air Room Air 12/16/23 21:03 12/16/23 21:19 12/16/23 23:01 Temperature 98.7 F 98.4 F 98.2 F Pulse Rate 91 87 83 Respiratory Rate 15 15 16 Blood Pressure 114/74 119/74 137/77 Pulse Oximetry 93 Oxygen Delivery Method Room Air BMI result Body Mass Index 16.7 Appearance: Alert. Oriented X3. No acute distress. Emaciated with significant muscle loss Eyes: PERRLA, No Nystagmus ENT: Pharynx normal. Oral Mucosa moist Neck: Normal inspection. Neck supple. CVS: Normal heart rate and rhythm. Pulses normal. Respiratory: No respiratory distress. Equal air entry bilateral, no wheezing/rales/rhonchi bilateral conducted sounds Abdomen: Soft and nontender. Bowel sounds are present, no mass palpable, no CVA tenderness rectal: Brown stool Skin: Skin warm and dry. Normal skin color. Normal skin turgor. Extremities: No lower extremity edema. No calf tenderness decreased muscle mass Neuro: Oriented X 3. No motor deficit. No sensory deficit.No cerebellar signs , cranial nerves II-XII intact Medications Administered Discontinued Medications Generic Name Dose Route Start Last Admin Trade Name Freq PRN Reason Stop Dose Admin Sodium Chloride 1,000 mls @ 999 mls/hr 12/16/23 17:37 12/16/23 17:46 Ns IV 12/16/23 18:37 999 mls/hr .Q1H1M ONE Administration Sodium Chloride 100 mls @ 100 mls/hr 12/16/23 19:25 12/16/23 21:14 Ns IV 12/16/23 20:24 100 mls/hr ONCE ONE Administration Thiamine HCl 100 mg 12/16/23 23:04 12/17/23 00:07 Thiamine Hcl 100 Mg Tablet PO 12/16/23 23:05 100 mg ONCE ONE Administration Medical Decision Making Medical Decision Making MDM Narrative: Patient with chronic failure to thrive with poor oral intake alcohol use recurrent lung infections comes here for similar feeling noted to have hemoglobin of 7.9 was 10.2, 2 weeks ago patient has severe malnutrition alcoholic myopathy will admit patient for further evaluation hospitalist advised to give patient's Zithromax patient was given 1 unit of PRBC in the ER Differential Diagnosis Differential Diagnoses: The differential diagnosis associated with the presentation includes Failure to thrive/chronic alcoholic disease/alcoholic myopathy/anemia/depression/aspiration pneumonia Admission/Observation Consideration of admission/observation: Escalation of care including admission/observation considered Consult Healthcare Provider Management of the patient was discussed with: Hospitalist Lab Data MDM Lab Attestation statement: I reviewed the patient's lab results. 12/16/23 17:45 12/16/23 17:45 Labs: Lab Results 12/16/23 12/16/23 12/16/23 Range/Units 17:05 17:45 19:29 WBC 9.2 (4.8-10.8) X10*3/uL RBC 3.00 L D (4.60-5.80) X10*6/uL Hgb 7.9 L D (14.0-18.0) g/dl Hct 24.0 L D (42.0-52.0) % MCV 80.0 (80.0-98.0) fL MCH 26.3 L (27.0-33.0) pg MCHC 32.9 (31.0-36.0) g/dl RDW 19.9 H (11.0-16.0) % Plt Count 160 (160-400) X10*3/uL MPV 9.5 (9.4-12.4) fL Immature Gran % (Auto) 0.7 H (0.0-0.4) % Neut % (Auto) 81.0 H (45-73) % Lymph % (Auto) 10.0 L (20-40) % [place] % (Auto) 7.4 (2-11) % Eos % (Auto) 0.7 (0-4) % Baso % (Auto) 0.2 (0-2) % Lymph # (Auto) 0.9 L (1.2-4.9) X10*3/uL [place] # (Auto) 0.7 (0.1-1.2) X10*3/uL Eos # (Auto) 0.1 (0.0-0.4) X10*3/uL Baso # (Auto) 0.0 (0.0-0.2) X10*3/uL Abs Immat Gran (auto) 0.06 H (0.00-0.03) X10*3/uL Absolute Neuts (auto) 7.5 (2.0-8.3) x10*3/uL Absolute Nucleated RBC 0.000 (0.0-0.012) X10*3/uL Nucleated RBC % (auto) 0.0 (0.0-0.2) /100WBC PT (11.1-13.3) SEC INR (0.9-1.1) Sodium 132 L (135-145) mmol/L Potassium 3.8 (3.3-5.1) mmol/L Chloride 102 (96-108) mmol/L Carbon Dioxide 20 L (22-29) mmol/L Anion Gap 14 (12-20) BUN 3 L (9-16) mg/dL Creatinine 0.41 L (0.5-1.4) mg/dL Estim Creat Clear Calc 165.0 Estimated GFR > 60 Random Glucose 77 (60-115) mg/dL Calcium 7.1 L D (8.4-10.2) mg/dL Magnesium 1.5 L (1.6-2.6) mg/dL Total Bilirubin 0.2 (0.0-1.0) mg/dL AST 32 (5-37) U/L ALT 13 (0-40) U/L Alkaline Phosphatase 143 H (39-117) U/L Total Protein 6.7 (6.5-8.0) g/dL Albumin 2.0 L (3.5-5.0) g/dL Lipase 14 (8-78) U/L Urine Color Yellow Urine Appearance Clear Urine pH 7.0 (5.0-9.0) Ur Specific [place] <= 1.005 (1.005-1.025) Urine Protein Negative (Neg-Trace) mg/dL Urine Glucose (UA) Negative (Negative) mg/dL Urine Ketones Negative (Negative) mg/dL Urine Blood Negative (Negative) Urine Nitrite Negative (Negative) Ur Leukocyte Esterase Negative (Negative) Stool Occult Blood NEGATIVE (NEGATIVE) Urine Opiates Screen Not Detected (Not Detect) Ur Buprenorphine Scrn Positive H (Not Detect) ng/mL Ur Oxycodone Screen Not Detected (Not Detect) ng/mL Urine Methadone Screen Not Detected (Not Detect) ng/mL Urine Fentanyl Screen Not Detected (Not Detect) Ur Barbiturates Screen Not Detected (Not Detect) Ur Phencyclidine Scrn Not Detected (Not Detect) Ur Amphetamines Screen Not Detected (Not Detect) U Benzodiazepines Scrn Not Detected (Not Detect) Urine Cocaine Screen Not Detected (Not Detect) U Marijuana (THC) Screen Not Detected (Not Detect) Ethyl Alcohol 207 mg/dL Blood Type B Positive Antibody Screen NEGATIVE Crossmatch See Detail 12/16/23 Range/Units 19:38 WBC (4.8-10.8) X10*3/uL RBC (4.60-5.80) X10*6/uL Hgb (14.0-18.0) g/dl Hct (42.0-52.0) % MCV (80.0-98.0) fL MCH (27.0-33.0) pg MCHC (31.0-36.0) g/dl RDW (11.0-16.0) % Plt Count (160-400) X10*3/uL MPV (9.4-12.4) fL Immature Gran % (Auto) (0.0-0.4) % Neut % (Auto) (45-73) % Lymph % (Auto) (20-40) % [place] % (Auto) (2-11) % Eos % (Auto) (0-4) % Baso % (Auto) (0-2) % Lymph # (Auto) (1.2-4.9) X10*3/uL [place] # (Auto) (0.1-1.2) X10*3/uL Eos # (Auto) (0.0-0.4) X10*3/uL Baso # (Auto) (0.0-0.2) X10*3/uL Abs Immat Gran (auto) (0.00-0.03) X10*3/uL Absolute Neuts (auto) (2.0-8.3) x10*3/uL Absolute Nucleated RBC (0.0-0.012) X10*3/uL Nucleated RBC % (auto) (0.0-0.2) /100WBC PT 12.0 (11.1-13.3) SEC INR 1.0 (0.9-1.1) Sodium (135-145) mmol/L Potassium (3.3-5.1) mmol/L Chloride (96-108) mmol/L Carbon Dioxide (22-29) mmol/L Anion Gap (12-20) BUN (9-16) mg/dL Creatinine (0.5-1.4) mg/dL Estim Creat Clear Calc Estimated GFR Random Glucose (60-115) mg/dL Calcium (8.4-10.2) mg/dL Magnesium (1.6-2.6) mg/dL Total Bilirubin (0.0-1.0) mg/dL AST (5-37) U/L ALT (0-40) U/L Alkaline Phosphatase (39-117) U/L Total Protein (6.5-8.0) g/dL Albumin (3.5-5.0) g/dL Lipase (8-78) U/L Urine Color Urine Appearance Urine pH (5.0-9.0) Ur Specific [place] (1.005-1.025) Urine Protein (Neg-Trace) mg/dL Urine Glucose (UA) (Negative) mg/dL Urine Ketones (Negative) mg/dL Urine Blood (Negative) Urine Nitrite (Negative) Ur Leukocyte Esterase (Negative) Stool Occult Blood (NEGATIVE) Urine Opiates Screen (Not Detect) Ur Buprenorphine Scrn (Not Detect) ng/mL Ur Oxycodone Screen (Not Detect) ng/mL Urine Methadone Screen (Not Detect) ng/mL Urine Fentanyl Screen (Not Detect) Ur Barbiturates Screen (Not Detect) Ur Phencyclidine Scrn (Not Detect) Ur Amphetamines Screen (Not Detect) U Benzodiazepines Scrn (Not Detect) Urine Cocaine Screen (Not Detect) U Marijuana (THC) Screen (Not Detect) Ethyl Alcohol mg/dL Blood Type Antibody Screen Crossmatch Independent Interpretation I performed an independent interpretation of an: EKG and Plain X-Ray Interpretation: Normal sinus rhythm heart rate 92 beats per minute no acute ST T wave changes no acute ischemia Radiology Impression Discussion of test interpretation with radiology: I have reviewed the radiologist's reading. Discharge Plan Discharge Clinical Impression: Adult failure to thrive, Anemia, Pneumonia, Alcohol dependence Patient Disposition: Admitted As Inpatient Interventions: Admission Worksheet (ED) Last Done: 12/17/23 00:04
--- NOTE | 2023-12-16 19:38 | PC.NURSE ---
Assumed care of pt at 1900. PT a/o rectal exam completed, labs drawn. VSS, multiple scabs and abrasion noted on pt's extremities, skin appearing yellowish as well. PT provided commoode and urinal and assisted to use. PT continuing to report dizziness. Awaiting lab result, plan for transfusion. Plan of care ongoing.
[2023-12-16 19:46] LABS: OBS Int Ctl Valid YES; OBS1 NEGATIVE (NEGATIVE)
--- NOTE | 2023-12-16 21:09 | PC.NURSE ---
1 unit RBC verified with co-signer, RACHELLE Monk. Vitals within normal limits. RBC transfusing. Plan of care ongoing
--- NOTE | 2023-12-16 23:54 | P.HPHOSP_ITS ---
History of Present Illness Date of Service: 12/16/23 Attending physician on admission: Osmin Rhodes Chief Complaint: Shortness on breath Yan Hooks is a 53 years old man with past medical history significant for COPD -no home O2, opiate dependence on Suboxone, alcohol abuse and lower leg DVT on Eliquis presents to the emergency department complaining of worsening shortness of breath and generalized weakness over the last 2 weeks. Stated that the shortness on breath is constant but more prominent with exertion. Today, he was unable to walk up stairs to his home. He denied associated chest pain, palpitations, headache, nausea, vomiting, fevers or chills. He denied abdominal pain, black stools or diarrhea. He mentioned that couple of days ago he noted some blood in his bed but he was unable to point out from where this blood was coming from. He has a poor appetite and does not eat well. Last alcoholic drink was today. He denied marijuana or illicit drug use. In the ED, he was found to have normal vital signs. Blood workup is remarkable for low hemoglobin of 7.9 (it was 10.2), with an MCV of 80 and elevated RDW. Platelet and INR are normal. There is mild hyponatremia 132. There are no other significant electrolyte imbalances. BUN is 3 and creatinine 0.41. Urinalysis is normal. Stool for occult blood is negative. CXR showed well inflated lungs and probable bilateral bronchopneumonia. ECG showed normal sinus rhythm with a heart rate 92 beats per minute, no acute abuse ischemic changes. ED tx: NS 1 L bolus, thiamine 1 mg PO Review of Systems 2 Review of Systems: All 12 systems were reviewed and normal except as noted in HPI. [facility] Medical History Shortness of breath on exertion Chronic kidney disease, stage III (moderate) AA (alcohol abuse) Pneumonia with cavity of lung Elevated LFTs Chronic deep vein thrombosis (DVT) of left lower extremity Bilateral leg weakness Alcohol withdrawal Abnormal EKG Lung abscess Abdominal hernia Varicose veins of both lower extremities Alcohol use Smoker Anxiety Abscess of lung Bilateral pneumonia Deep vein thrombosis of left lower extremity COPD (chronic obstructive pulmonary disease) History of substance abuse Epidermal cyst Pulmonary emphysema Family History Father CVD (cardiovascular disease) Mother Rheumatoid arthritis Sister No problems noted. Maternal Uncle Prostate cancer Maternal Uncle Lung cancer Colon cancer Surgical History History of laparoscopic cholecystectomy (~08/19/22) Social History Household Members: Other Housing: House Housing Other:: with roomate Are you a primary career technical supervisor to a significant other at home: No Do you presently have visiting nurse or other home services: No Alcohol intake: current Alcohol intake frequency: 3 or more drinks per day Alcohol type: beer Comment: patent refusing all alarms Patient Tobacco Use Status: Current everyday Tobacco user Tobacco use type: Cigarette Cigarette Packs Per Day: 2 Cigarettes Per Day: 40.0 Years Smoked: 31 Smoked in Last 30 Days: Yes e-Cigarette/Vaping Use: Never Used Second Hand Smoke Exposure: Yes Use of substances other than those prescribed or required for medical reasons: Yes Substance Use Type Other:: suboxone Substance Use Frequency: Chronic Longstanding Last Used Substance: Hours (ago) Advance Directives: No Advance Directives Information Provided: No Do you have a plan to hurt others: No Plan service: No Current occupational status: employed Current occupation: rt hand / golf course Cognitive needs: No Hearing needs: No Vision needs: Yes Meds Allergies Allergy/AdvReac Type Severity Reaction Status Date / Time Sulfa (Sulfonamide AdvReac Intermediate NAUSEA & Verified 12/16/23 16:09 Antibiotics) VOMITING [SULFA (SULFONAMIDE ANTIBIOTICS)] doxycycline AdvReac Mild Vomiting Verified 12/16/23 16:09 Active Medications: Current Medications Acetaminophen (Acetaminophen 325 Mg Tablet) 650 mg PO Q6H PRN PRN Reason: Pain, Mild (Pain Scale 1-3), fever or headache Albuterol Sulfate (Albuterol Sulfate (0.083%) 2.5 Mg/3 Ml Vial.Neb) 2.5 mg INHALE Q3H PRN PRN Reason: Shortness of Breath/Wheezing Folic Acid (Folic Acid 1 Mg Tablet) 1 mg PO DAILY [facility] Stop: 12/20/23 08:59 Azithromycin 500 mg/ Sodium (Chloride) 250 mls @ 125 mls/hr IV Q24H [facility] Lorazepam (Lorazepam 1 Mg Tablet) 2 mg PO RQ4H WHILE AWAKE PRN PRN Reason: Alcohol Withdrawal Multivitamins/Vitamin C (Multivitamin Tablet) 1 tab PO DAILY [facility] Stop: 12/20/23 08:59 Pantoprazole Sodium (Pantoprazole Sodium 40 Mg/10 Ml Vial) 40 mg IVPUSH BID@0630,1630 [facility] Sodium Chloride (0.9 % Sodium Chloride Flush 3 Ml Syringe) 3 ml IVFLUSH QSHIFT [facility] Thiamine HCl (Thiamine Hcl 100 Mg Tablet) 100 mg PO DAILY [facility] Stop: 12/19/23 23:49 Home Medications ?Medication ?Instructions ?Recorded ?Confirmed ?Last Taken ?Type buprenorphine 8 mg-naloxone 2 mg 2 film sublingual DAILY 08/10/20 10/26/23 Unknown History sublingual film (Suboxone) multivitamin 1 tab PO DAILY 09/05/21 10/26/23 Unknown History Physical Exam 2 Vital Signs and Narrative: Vital Signs: Last Vital Signs Temp 98.2 F 12/16/23 23:01 Pulse 83 12/16/23 23:01 Resp 16 12/16/23 23:01 BP 137/77 12/16/23 23:01 Pulse Ox 93 12/16/23 23:01 O2 Del Method Room Air 12/16/23 23:01 BMI result Body Mass Index 16.7 Constitutional - Awake and Alert, No apparent distress. Cachectic. Temporal wasting. Chronically ill-appearing.. Pleasant. Cooperative. HEENT - Pupils equally round, no scleral icterus. Dry oral mucosa. Heart - RRR. No murmur. Lungs - Normal lung expansion, Normal respiratory effort, No respiratory distress, CTA bilaterally Abdomen - NT / ND; +BS; No rebound or guarding Extremities - no calf tenderness bilaterally, no swelling Musculoskeletal - generalized muscular atrophy. Skin - Warm/Dry Neurological - Alert & oriented x3. No facial droop. No focal weakness grossly noted. Normal speech. Psychological - No agitation. Results Labs 12/16/23 17:45 12/16/23 17:45 Labs: Laboratory Results - last 24 hr 12/16/23 12/16/23 12/16/23 17:05 17:45 19:29 MCV 80.0 MCH 26.3 L MCHC 32.9 RDW 19.9 H Plt Count 160 MPV 9.5 Immature Gran % (Auto) 0.7 H Neut % (Auto) 81.0 H Lymph % (Auto) 10.0 L [place] % (Auto) 7.4 Eos % (Auto) 0.7 Baso % (Auto) 0.2 Lymph # (Auto) 0.9 L [place] # (Auto) 0.7 Eos # (Auto) 0.1 Baso # (Auto) 0.0 Abs Immat Gran (auto) 0.06 H Absolute Neuts (auto) 7.5 Absolute Nucleated RBC 0.000 Nucleated RBC % (auto) 0.0 PT INR Anion Gap 14 Estim Creat Clear Calc 165.0 Estimated GFR > 60 Random Glucose 77 Calcium 7.1 L D Magnesium 1.5 L Total Bilirubin 0.2 AST 32 ALT 13 Alkaline Phosphatase 143 H Total Protein 6.7 Albumin 2.0 L Lipase 14 Urine Color Yellow Urine Appearance Clear Urine pH 7.0 Ur Specific [place] <= 1.005 Urine Protein Negative Urine Glucose (UA) Negative Urine Ketones Negative Urine Blood Negative Urine Nitrite Negative Ur Leukocyte Esterase Negative Stool Occult Blood NEGATIVE Urine Opiates Screen Not Detected Ur Buprenorphine Scrn Positive H Ur Oxycodone Screen Not Detected Urine Methadone Screen Not Detected Urine Fentanyl Screen Not Detected Ur Barbiturates Screen Not Detected Ur Phencyclidine Scrn Not Detected Ur Amphetamines Screen Not Detected U Benzodiazepines Scrn Not Detected Urine Cocaine Screen Not Detected U Marijuana (THC) Screen Not Detected Ethyl Alcohol 207 Blood Type B Positive Antibody Screen NEGATIVE Crossmatch See Detail 12/16/23 19:38 MCV MCH MCHC RDW Plt Count MPV Immature Gran % (Auto) Neut % (Auto) Lymph % (Auto) [place] % (Auto) Eos % (Auto) Baso % (Auto) Lymph # (Auto) [place] # (Auto) Eos # (Auto) Baso # (Auto) Abs Immat Gran (auto) Absolute Neuts (auto) Absolute Nucleated RBC Nucleated RBC % (auto) PT 12.0 INR 1.0 Anion Gap Estim Creat Clear Calc Estimated GFR Random Glucose Calcium Magnesium Total Bilirubin AST ALT Alkaline Phosphatase Total Protein Albumin Lipase Urine Color Urine Appearance Urine pH Ur Specific [place] Urine Protein Urine Glucose (UA) Urine Ketones Urine Blood Urine Nitrite Ur Leukocyte Esterase Stool Occult Blood Urine Opiates Screen Ur Buprenorphine Scrn Ur Oxycodone Screen Urine Methadone Screen Urine Fentanyl Screen Ur Barbiturates Screen Ur Phencyclidine Scrn Ur Amphetamines Screen U Benzodiazepines Scrn Urine Cocaine Screen U Marijuana (THC) Screen Ethyl Alcohol Blood Type Antibody Screen Crossmatch Imaging Radiologist's Impressions: Impressions Chest X-Ray 12/16/23 22:55 IMPRESSION: Well inflated lungs and probable bilateral bronchopneumonia. Assessment and Plan (1) Shortness of breath on exertion: Status: Acute (2) Anemia: Status: Acute Plan Yan Hooks is a 53 y/o man admitted with: * Shortness of breath and weakness likely multifactorial: Worsening anemia, muscular atrophy/physical deconditioning, underlying chronic diastolic dysfunction and possible underlying vitamin deficiencies. ? Bronchopneumonia. Admit to hospitalist service. Patient received treatment with 1 unit of PRBC in the emergency department -recheck H&H post transfusion. Empiric IV antibiotic therapy with azithromycin. Check vitamin DM and B12 level. Check BNP. PT evaluation. Fall precautions. * Worsening anemia. Negative occult blood test. s/p 1 unit PRBCs transfusion. Anemia workup. Hold Eliquis for now. Continue to monitor. Start Protonix 40 mg IV b.i.d. GI consult. * Hyponatremia. mild. Likely secondary to poor p.o. intake. Continue IV fluids. Continue to monitor. * Lower extremity edema + hyperpigmentation (L>R). Check Bilat LE venous US. * History of substance abuse. Continue Suboxone. * History of DVT. On Eliquis (on hold for now due to worsening anemia). * Alcohol abuse. [facility] protocol: Phenobarbital protocol. Thiamine, folic acid and multivitamins. IV fluids with D5 (thiamine to give first). Patient was encouraged to obtain from alcohol consumption. * COPD. Not in acute exacerbation. Albuterol nebs as needed. * Severe calorie protein malnutrition. BMI 16.7 kg/m2. Dietary consult. DVT prophylaxis: SCDs for now. Eliquis on hold. Code status: Full Patient will need hospitalization for at least 2 midnights for shortness of breath and weakness treatment with PRBC transfusion monitoring of hemoglobin. He will also need evaluation by subspecialty. Quality Stroke Does the patient have a stroke diagnosis?: No VTE Prior VTE?: No VTE Risk Level:: Medical - moderate - high VTE Device Contraindication: Treatment Not Indicated VTE Drug Contraindication: N/A - Med Ordered
[2023-12-17] MEDS: Thiamine HCL 100 MG TABLET PO ×2 (00:07→08:22)
[2023-12-17 00:13] VITALS: BP 152/82; PULSE 82; RESP 14; TEMP 36.9
--- NOTE | 2023-12-17 00:30 | PC.NURSE ---
Addendum entered by Zahira Marin RN 12/17/23 06:31: Unable to place note at time of incident r/t downtime from 01:00-06:00. At approximately 01:45 patient called out stating he needed something for withdrawal. patient given PRN ativan 2mg PO per order with no effect. Patient was diaphoretic, tremorous, and severely anxious. patient talking to oneself while awaiting medication. Dr. Ovidio Rhodes at bedside ordered pheno protocol for patient. Good effect. patient asleep with frequent checks and VMT camera in room. bed alarm on. safety and comfort maintained, call hernandez in reach. Original Note: pt admitted to S3 via stretcher aroudn 00:20. A&Ox4. patient very weak, endorses that he cannot walk but insisted on using bedside commode. patient attempted to stand and pivot to commode and almost fell. VMT camera in the room, bed alarm, and [place] catheter in place. Red socks tied to foot board, patient refusing to wear red socks, states, They put a target on you for a high fall risk. Patient answered all admission questions without difficulty endorsing that he drank about 20 beers prior to coming to the hospital and drinks 10-20, sometimes more beers everyday. Patient cooperative with care. Skin is covered throughout in cuts and scabs, scars, including face. Patient has wound/pressure injury on buttock, gluteal fold, and coccyx. Left leg edema 2+ pitting throughout to the left foot and toes. noted to be erythema present on foot. bilateral legs are shiny. Patient states he takes suboxone daily - states he goes to a clinic in [place] but could not state the name of the clinic. Patient reports his black bag was left in the ED, that someone took his suboxone, and he did not come to the floor with his coffee. Patient requesting pb&j sandwich and water, patient given snacks for nourishment. medications given per orders/aug. all needs met, call hernandez in reach. safety and comfort maintained.
[2023-12-17 00:37] VITALS: BP 158/91; PULSE 90; RESP 18; TEMP 36.7; O2SAT 95
[2023-12-17 00:41] VITALS: BMI 17.2
[2023-12-17] MEDS: Pantoprazole Sodium 40 MG/10 ML VIAL IVPUSH ×2 (00:48→17:21)
[2023-12-17] MEDS: Magnesium Sulfate/H2O 2 GM/50 ML PIGGYBACK IV (00:48)
[2023-12-17] MEDS: 0.9 % Sodium Chloride Flush 3 ML SYRINGE IVFLUSH (00:48)
[2023-12-17] MEDS: LORazepam 1 MG TABLET 2 MG PO (01:45)
[2023-12-17] MEDS: PHENobarbitaL sodium 65 MG/ML VIAL 60 MG IM (02:20)
[2023-12-17] MEDS: Azithromycin 500 MG in 0.9 % Sodium Chloride 250 ML 125 MG IV (02:30)
[2023-12-17 04:00] VITALS: BP 124/83; PULSE 116; RESP 18; TEMP 36.5; O2SAT 96
[2023-12-17] MEDS: Dextrose 5 % and 0.9 % NaCl 1,000 ML 80 ML IVCONT ×2 (04:35→16:42)
[2023-12-17 07:03] LABS: B Type Natriuretic Peptide 211 pg/mL (<100)
[2023-12-17 07:32] VITALS: BP 137/90; PULSE 96; RESP 16; TEMP 36.6; O2SAT 95
[2023-12-17] MEDS: Multivitamin TABLET 1 TAB PO (08:22)
[2023-12-17] MEDS: Folic Acid 1 MG TABLET PO (08:22)
[2023-12-17] MEDS: PHENobarbitaL sodium 130 MG/ML IM ONCE 180 MG IM (09:02)
--- NOTE | 2023-12-17 09:06 | PHA.MEDREC ---
Pharmacy Consult ? Medication Reconciliation Pharmacy has completed the medication reconciliation.He confirmed his Suboxone 8 mg/2 mg film is 2 films daily. He states hasn't been using Brovana 2 ml bid and Duoneb 3 ml q6-8h because he is moving and doesn't know where they are.
[2023-12-17 10:03] LABS: Basophils Percent Auto 0.6 % (0-2); Eosinophils Percent Auto 0.3 % (0-4); Hematocrit 30.9 % (42.0-52.0); Imm Gran Abs Auto 0.05 X10*3/uL (0.00-0.03); Imm Gran Pct Auto 0.8 % (0.0-0.4); Immature Retic Fraction 30.3 % (2.3-13.4); Lymphocytes Absolute Auto 0.8 X10*3/uL (1.2-4.9); Lymphocytes Percent Auto 11.9 % (20-40); Mean Corpuscular HGB Conc 32.4 g/dl (31.0-36.0); Mean Corpuscular Hemoglobin 27.2 pg (27.0-33.0); Mean Corpuscular Volume 84.2 fL (80.0-98.0); Mean Platelet Volume 9.7 fL (9.4-12.4); Monocytes Absolute Auto 0.6 X10*3/uL (0.1-1.2); Monocytes Percent Auto 9.6 % (2-11); Neutrophils Absolute Auto 4.9 x10*3/uL (2.0-8.3); Neutrophils Percent Auto 76.8 % (45-73); Platelet Count 153 X10*3/uL (160-400); Red Blood Count 3.67 X10*6/uL (4.60-5.80); Red Cell Distribution Width 19.7 % (11.0-16.0); Retic HGB Equivalent 27.4 pg (30.0-35.0); Reticulocyte Percent 1.2 % (0.5-1.8); Reticulocytes Absolute 0.042 X10*6/uL (0.026-0.095); White Blood Count 6.4 X10*3/uL (4.8-10.8)
[2023-12-17 10:27] LABS: Alanine Aminotransferase 12 U/L (0-40); Alkaline Phosphatase 144 U/L (39-117); Anion Gap 12 (12-20); Aspartate Amino Transferase 24 U/L (5-37); Bilirubin Total 0.6 mg/dL (0.0-1.0); Blood Urea Nitrogen < 3 mg/dL (9-16); Calcium 7.4 mg/dL (8.4-10.2); Carbon Dioxide 20 mmol/L (22-29); Chloride 104 mmol/L (96-108); Creatinine Clr Calc Pharmacy 150.3; Estimated Glomerular Filt Rate > 60; Glucose Random 120 mg/dL (60-115); Iron 218 mcg/dL (45-160); Percent Iron Saturation 90 % (15-50); Potassium 3.1 mmol/L (3.3-5.1); Sodium 133 mmol/L (135-145); Total Iron Binding Capacity 243 mcg/dL (228-428); Unsaturated Iron Binding < 25 ug/dL
[2023-12-17 10:40] LABS: Ferritin 86 ng/mL (20-250); TSH reflex Free T4 2.77 uIU/mL (0.32-4.0); Vitamin D 25-OH Total 8.2 ng/mL (>30)
[2023-12-17 10:47] VITALS: BMI 17.2
--- NOTE | 2023-12-17 10:52 | MHC.CLN ---
RE: CONSULT PT IS MODERATELY MALNOURISHED -TRIGGERS FOR NON-SEVERE MALNUTRITION IN THE CONTEXT OF SOCIAL/BEHAVIORAL AND ENVIRONMENTAL PT WITH MILDLY DEPLETED SUBCUTANEOUS FAT AND MUSCLE MASS WITH 9% NONSIGNIFICANT WT LOSS X1 YEAR AND POOR PO X 2 WEEKS AND PT REPORTS CONSUMING 10-20 BEERS PER DAY DIET RX: CARDIAC-RECOMMEND 2GM NA DIET R/T HX CKD RECOMMEND ADDING ENSURE BID TO PROVIDE 700KCALS, 40G PROTEIN MONITOR PO INTAKE AND ENCOURAGE SUPPLEMENTS SEE ALSO FULL CLINICAL NUTRITION ASSESSMENT
[2023-12-17 11:31] LABS: Folate 9.3 ng/mL (> or = 4.0); Vitamin B12 423 pg/mL (200-900)
--- NOTE | 2023-12-17 11:49 | MHC.CM.PN ---
Patient lives in a two family home, shared w/ a friend. Ambulates w/ walker PRN. Patient reports his friend assists w/ ADL's PRN. PCP Lizandro Teran MD Completed HCP naming sister Delfina as HCA. DP: Goal is home w/ friend. Father to transport. CM will continue to follow.
[2023-12-17] MEDS: PHENobarbitaL sodium 130 MG/ML VIAL IM Q3Hx2 135 MG IM ×2 (12:11→15:38)
--- NOTE | 2023-12-17 13:29 | HO.PM.IMPN ---
Subjective Subjective Date of Service: 12/18/23 Interval History: Being followed for generalized weakness/shortness of breath, alcohol abuse and alcohol withdrawal. Feels weak, complaining of generalized weakness, admits to have left leg greater than right, denies pain, no trauma denies headache, no dizziness. Review of Systems All other system reviewed and are negative Physical Exam Vital Signs: Vital Signs: Last Vital Signs Temp 97.8 F 12/17/23 07:32 Pulse 96 12/17/23 07:32 Resp 16 12/17/23 07:32 BP 137/90 H 12/17/23 07:32 Pulse Ox 95 12/17/23 07:32 O2 Del Method Room Air 12/17/23 07:32 BMI result Body Mass Index 17.2 Const: Other: General sleepy, easily arousable, in no acute distress, falls back to sleep after answering questions. Neck supple no JVD. CVS regular rate rhythm, Respiratory lungs coarse breath sounds, no respiratory distress, no wheeze, no rhonchi. Gastrointestinal abdomen soft, non tender, bowel sounds audible, no guarding , no rigidity. Extremities left leg bigger than right, with dry skin, likely due to chronic dvt Neuro non focal ,moving all 4 extremity, speech clear. Psych appropriate affect Objective Data Active Medications Acetaminophen (Acetaminophen 325 Mg Tablet) 650 mg PO Q6H PRN PRN Reason: Pain, Mild (Pain Scale 1-3), fever or headache Albuterol Sulfate (Albuterol Sulfate (0.083%) 2.5 Mg/3 Ml Vial.Neb) 2.5 mg INHALE Q3H PRN PRN Reason: Shortness of Breath/Wheezing Folic Acid (Folic Acid 1 Mg Tablet) 1 mg PO DAILY [facility] Stop: 12/20/23 08:59 Last Admin: 12/17/23 08:22 Dose: 1 mg Documented By: STEPHANE Azithromycin 500 mg/ Sodium (Chloride) 250 mls @ 125 mls/hr IV 2200 [facility] Last Infusion: 12/17/23 04:30 Dose: Infused Documented By: ROCAEL Dextrose/Sodium Chloride (D5ns) 1,000 mls @ 80 mls/hr IVCONT .[id number] [facility] Last Admin: 12/17/23 04:35 Dose: 80 mls/hr Documented By: ROCAEL Comments: downtime Lorazepam (Lorazepam 1 Mg Tablet) 2 mg PO RQ4H WHILE AWAKE PRN PRN Reason: Alcohol Withdrawal Last Admin: 12/17/23 01:45 Dose: 2 mg Documented By: JOHN Comments: medication not scanned, patient band not scanned r/t downtime 01:00-05:45. Multivitamins/Vitamin C (Multivitamin Tablet) 1 tab PO DAILY [facility] Stop: 12/20/23 08:59 Last Admin: 12/17/23 08:22 Dose: 1 tab Documented By: STEPHANE Pantoprazole Sodium (Pantoprazole Sodium 40 Mg/10 Ml Vial) 40 mg IVPUSH BID@0630,1630 [facility] Last Admin: 12/17/23 00:48 Dose: 40 mg Documented By: ROCAEL Pharmacy Consult (Consult Rx Etoh Phenob Im/Po) 1 each MISCELLANE ONCE PRN; Protocol PRN Reason: Consult order Phenobarbital (Phenobarbital 15 Mg Tablet) 45 mg PO BID [facility]; Protocol Stop: 12/19/23 09:01 Phenobarbital (Phenobarbital 30 Mg Tablet) 30 mg PO BID [facility]; Protocol Stop: 12/21/23 09:01 Phenobarbital (Phenobarbital 30 Mg Tablet) 30 mg PO DAILY [facility]; Protocol Stop: 12/23/23 09:01 Phenobarbital Sodium (Phenobarbital Sodium 130 Mg/Ml Vial Im Q3hx2) 135 mg IM Q3H [facility]; Protocol Stop: 12/17/23 15:01 Last Admin: 12/17/23 12:11 Dose: 135 mg Documented By: STEPHANE Sodium Chloride (0.9 % Sodium Chloride Flush 3 Ml Syringe) 3 ml IVFLUSH QSHIFT [facility] Last Admin: 12/17/23 08:25 Dose: Not Given Documented By: STEPHANE Non-Admin Reason: IV Running Thiamine HCl (Thiamine Hcl 100 Mg Tablet) 100 mg PO DAILY [facility] Stop: 12/20/23 08:59 Last Admin: 12/17/23 08:22 Dose: 100 mg Documented By: STEPHANE Labs 12/17/23 09:47 12/17/23 09:47 Labs: Laboratory Results - last 24 hr 12/16/23 12/16/23 12/16/23 17:05 17:45 19:29 MCV 80.0 MCH 26.3 L MCHC 32.9 RDW 19.9 H Plt Count 160 MPV 9.5 Immature Gran % (Auto) 0.7 H Neut % (Auto) 81.0 H Lymph % (Auto) 10.0 L [place] % (Auto) 7.4 Eos % (Auto) 0.7 Baso % (Auto) 0.2 Lymph # (Auto) 0.9 L [place] # (Auto) 0.7 Eos # (Auto) 0.1 Baso # (Auto) 0.0 Abs Immat Gran (auto) 0.06 H Absolute Neuts (auto) 7.5 Absolute Nucleated RBC 0.000 Nucleated RBC % (auto) 0.0 Absolute Retic Percent Retic Immature Retic Fraction Retic Hgb Equivalent PT INR Anion Gap 14 Estim Creat Clear Calc 165.0 Estimated GFR > 60 Random Glucose 77 Calcium 7.1 L D Magnesium 1.5 L Iron TIBC % Saturation Unsat Iron Binding Ferritin Total Bilirubin 0.2 AST 32 ALT 13 Alkaline Phosphatase 143 H B-Natriuretic Peptide Total Protein 6.7 Albumin 2.0 L Lipase 14 Vitamin B12 25-OH Vitamin D Total Folate TSH Urine Color Yellow Urine Appearance Clear Urine pH 7.0 Ur Specific [place] <= 1.005 Urine Protein Negative Urine Glucose (UA) Negative Urine Ketones Negative Urine Blood Negative Urine Nitrite Negative Ur Leukocyte Esterase Negative Stool Occult Blood NEGATIVE Urine Opiates Screen Not Detected Ur Buprenorphine Scrn Positive H Ur Oxycodone Screen Not Detected Urine Methadone Screen Not Detected Urine Fentanyl Screen Not Detected Ur Barbiturates Screen Not Detected Ur Phencyclidine Scrn Not Detected Ur Amphetamines Screen Not Detected U Benzodiazepines Scrn Not Detected Urine Cocaine Screen Not Detected U Marijuana (THC) Screen Not Detected Ethyl Alcohol 207 Blood Type B Positive Antibody Screen NEGATIVE Crossmatch See Detail 12/16/23 12/17/23 12/17/23 19:38 06:27 09:47 MCV 84.2 MCH 27.2 MCHC 32.4 RDW 19.7 H Plt Count 153 L MPV 9.7 Immature Gran % (Auto) 0.8 H Neut % (Auto) 76.8 H Lymph % (Auto) 11.9 L [place] % (Auto) 9.6 Eos % (Auto) 0.3 Baso % (Auto) 0.6 Lymph # (Auto) 0.8 L [place] # (Auto) 0.6 Eos # (Auto) 0.0 Baso # (Auto) 0.0 Abs Immat Gran (auto) 0.05 H Absolute Neuts (auto) 4.9 Absolute Nucleated RBC 0.000 Nucleated RBC % (auto) 0.0 Absolute Retic 0.042 Percent Retic 1.2 Immature Retic Fraction 30.3 H Retic Hgb Equivalent 27.4 L PT 12.0 INR 1.0 Anion Gap 12 Estim Creat Clear Calc 150.3 Estimated GFR > 60 Random Glucose 120 H Calcium 7.4 L Magnesium Iron 218 H TIBC 243 % Saturation 90 H Unsat Iron Binding < 25 Ferritin 86 Total Bilirubin 0.6 AST 24 ALT 12 Alkaline Phosphatase 144 H B-Natriuretic Peptide 211 H Total Protein 7.0 Albumin 2.0 L Lipase Vitamin B12 423 25-OH Vitamin D Total 8.2 L Folate 9.3 TSH 2.77 Urine Color Urine Appearance Urine pH Ur Specific [place] Urine Protein Urine Glucose (UA) Urine Ketones Urine Blood Urine Nitrite Ur Leukocyte Esterase Stool Occult Blood Urine Opiates Screen Ur Buprenorphine Scrn Ur Oxycodone Screen Urine Methadone Screen Urine Fentanyl Screen Ur Barbiturates Screen Ur Phencyclidine Scrn Ur Amphetamines Screen U Benzodiazepines Scrn Urine Cocaine Screen U Marijuana (THC) Screen Ethyl Alcohol Blood Type Antibody Screen Crossmatch Assessment and Plan (1) Alcohol dependence: Status: Acute (2) Pneumonia: Status: Acute (3) Anemia: Status: Acute Plan Yan Hooks is a 53 y/o man admitted with: Shortness of breath and weakness likely multifactorial: Due to anemia/bronchopneumonia /electrolyte abnormality Continue IV azithromycin and add IV ceftriaxone , supportive care Obtain PT eval Acute on chronic normocytic anemia, no acute blood loss noted Hematocrit improved after 1 unit of packed RBC, normal iron studies, B12 and folate, continue Protonix Hold Eliquis for now,Continue to monitor, likely due to poor nutrition ,follow CBC. Chronic Hyponatremia. mild likely beer potomania, sodium improved to 133, Continue IV fluids and follow labs. Acute hypokalemia replace and follow labs Lower extremity edema + hyperpigmentation (L>R). Bilat LE venous US pending. History of left leg DVT on Eliquis currently on hold due to anemia-if hematocrit remains stable will resume Eliquis History of substance abuse. Continue Suboxone. Alcohol abuse/withdrawal. Phenobarbital protocol. Thiamine, folic acid and multivitamins, addiction consult. Lives alone at home ambulate with walker, gets assistance from friends. COPD. Not in acute exacerbation, not on home O2, Albuterol nebs as needed. Moderate calorie protein malnutrition. BMI 16.7 kg/m2. Dietary consult. Tobacco use disorder counseling done declined nicotine patch. DVT prophylaxis: SCDs for now. Eliquis on hold as above. Code status: Full Patient will need continued inpatient hospitalization for shortness of breath and weakness, and receiving treatment for alcohol withdrawal. Quality Stroke Does the patient have a stroke diagnosis?: No VTE Prior VTE?: No VTE Risk Level:: Medical - moderate - high VTE Device Contraindication: Treatment Not Indicated VTE Drug Contraindication: N/A - Med Ordered
[2023-12-17 15:26] VITALS: BP 132/83; PULSE 105; RESP 19; TEMP 36.8; O2SAT 93
[2023-12-17] MEDS: cefTRIAXone sodium 1 GM in 0.9 % Sodium Chloride 50 ML IV (15:36)
--- NOTE | 2023-12-17 18:21 | P.DS_ITS ---
DS: Providers Provider Date of Service: 12/17/23 Date of admission: 12/16/23 23:18 Primary care physician: Lizandro Teran MD DS: Diagnosis Discharge Diagnosis (1) Shortness of breath on exertion: Status: Acute (2) Anemia: Status: Acute DS: Summary Hospital Course Hospital Course: History of presenting illness: Date of Service: 12/16/23 Attending physician on admission: Osmin Rhodes Chief Complaint: Shortness on breath Yan Hooks is a 53 years old man with past medical history significant for COPD -no home O2, opiate dependence on Suboxone, alcohol abuse and lower leg DVT on Eliquis presents to the emergency department complaining of worsening shortness of breath and generalized weakness over the last 2 weeks. Stated that the shortness on breath is constant but more prominent with exertion. Today, he was unable to walk up stairs to his home. He denied associated chest pain, palpitations, headache, nausea, vomiting, fevers or chills. He denied abdominal pain, black stools or diarrhea. He mentioned that couple of days ago he noted some blood in his bed but he was unable to point out from where this blood was coming from. He has a poor appetite and does not eat well. Last alcoholic drink was today. He denied marijuana or illicit drug use. In the ED, he was found to have normal vital signs. Blood workup is remarkable for low hemoglobin of 7.9 (it was 10.2), with an MCV of 80 and elevated RDW. Platelet and INR are normal. There is mild hyponatremia 132. There are no other significant electrolyte imbalances. BUN is 3 and creatinine 0.41. Urinalysis is normal. Stool for occult blood is negative. CXR showed well inflated lungs and probable bilateral bronchopneumonia. ECG showed normal sinus rhythm with a heart rate 92 beats per minute, no acute abuse ischemic changes. ED tx: NS 1 L bolus, thiamine 1 mg PO Hospital course: 53 y/o man admitted with shortness of breath and generalized weakness and diagnosed to have bronchopneumonia and normocytic anemia patient treated with IV antibiotics, received 1 unit of blood transfusion, hematocrit improved, workup showed normal iron studies, B12, folate, patient was also noted to have elevated alcohol level of 207 was placed on phenobarb due to high likelihood of alcohol withdrawal, he was noted to have electrolyte abnormalities with hyponatremia likely due to beer potomania and hypokalemia, that was repleted however patient decided to leave hospital against medical advice , as per patient his house is sold and he has to sign paperwork, and also he wanted to smoke patient was offered nicotine patch as well as Nicorette gums , he was informed about risk of worsening pneumonia, sepsis , worsening anemia while on Eliquis, high risk of fall with alcohol intoxication and withdrawal, he showed understanding of his m edical issues, but adamantly refused to stay and left hospital against medical advice. Antibiotics azithromycin and Ceftin called in to [facility] pharmacy patient strongly advised to abstain from alcohol and smoking . Discharge diagnosis acute on chronic normocytic anemia Alcohol abuse and withdrawal Chronic Hyponatremia Acute hypokalemia Chronic left lower extremity DVT History of substance abuse on Suboxone Tobacco use disorder Generalized weakness/ Moderate protein calorie malnutrition Time Attestation Discharge Coordination Time (in mins): 34 Quality: Safe Use of Opioids Does Pt have an Active Cancer Diagnosis on the Problem List?: No Quality: Stroke Does the patient have a stroke diagnosis?: No Physical Exam Vital Signs: Vital Signs: Last Vital Signs Temp 98.3 F 12/17/23 15:26 Pulse 105 H 12/17/23 15:26 Resp 19 12/17/23 15:26 BP 132/83 12/17/23 15:26 Pulse Ox 93 12/17/23 15:26 O2 Del Method Room Air 12/17/23 15:26 BMI result Body Mass Index 17.2 Const: Other: General frail gentleman looks older than stated age, awake alert x3 in no acute distress. Neck supple no JVD. CVS regular rate rhythm, Respiratory lungs coarse breath sounds, no respiratory distress, no wheeze, no rhonchi. Gastrointestinal abdomen soft, non tender, bowel sounds audible, no guarding , no rigidity. Extremities left leg bigger than right, with dry skin, likely due to chronic dvt Neuro non focal ,moving all 4 extremity, speech clear. Psych appropriate affect DS: Data Data Completed and Pending Completed studies during hospitalization [Text1]: Procedures Detoxification Services for Substance Abuse Treatment (02/06/23) Resection of Gallbladder, Percutaneous Endoscopic Approach (08/15/22) Labs on day of discharge: Laboratory Results - last 24 hr 12/16/23 12/16/23 12/16/23 17:45 19:29 19:38 WBC RBC Hgb Hct MCV MCH MCHC RDW Plt Count MPV Immature Gran % (Auto) Neut % (Auto) Lymph % (Auto) [place] % (Auto) Eos % (Auto) Baso % (Auto) Lymph # (Auto) [place] # (Auto) Eos # (Auto) Baso # (Auto) Abs Immat Gran (auto) Absolute Neuts (auto) Absolute Nucleated RBC Nucleated RBC % (auto) Absolute Retic Percent Retic Immature Retic Fraction Retic Hgb Equivalent PT 12.0 INR 1.0 Sodium Potassium Chloride Carbon Dioxide Anion Gap BUN 3 L Creatinine Estim Creat Clear Calc Estimated GFR Random Glucose Calcium Iron TIBC % Saturation Unsat Iron Binding Ferritin Total Bilirubin AST ALT Alkaline Phosphatase B-Natriuretic Peptide Total Protein Albumin Vitamin B12 25-OH Vitamin D Total Folate TSH Stool Occult Blood NEGATIVE Blood Type B Positive Antibody Screen NEGATIVE Crossmatch See Detail 12/17/23 12/17/23 06:27 09:47 WBC 6.4 RBC 3.67 L D Hgb 10.0 L D Hct 30.9 L D MCV 84.2 MCH 27.2 MCHC 32.4 RDW 19.7 H Plt Count 153 L MPV 9.7 Immature Gran % (Auto) 0.8 H Neut % (Auto) 76.8 H Lymph % (Auto) 11.9 L [place] % (Auto) 9.6 Eos % (Auto) 0.3 Baso % (Auto) 0.6 Lymph # (Auto) 0.8 L [place] # (Auto) 0.6 Eos # (Auto) 0.0 Baso # (Auto) 0.0 Abs Immat Gran (auto) 0.05 H Absolute Neuts (auto) 4.9 Absolute Nucleated RBC 0.000 Nucleated RBC % (auto) 0.0 Absolute Retic 0.042 Percent Retic 1.2 Immature Retic Fraction 30.3 H Retic Hgb Equivalent 27.4 L PT INR Sodium 133 L Potassium 3.1 L Chloride 104 Carbon Dioxide 20 L Anion Gap 12 BUN < 3 L Creatinine 0.45 L Estim Creat Clear Calc 150.3 Estimated GFR > 60 Random Glucose 120 H Calcium 7.4 L Iron 218 H TIBC 243 % Saturation 90 H Unsat Iron Binding < 25 Ferritin 86 Total Bilirubin 0.6 AST 24 ALT 12 Alkaline Phosphatase 144 H B-Natriuretic Peptide 211 H Total Protein 7.0 Albumin 2.0 L Vitamin B12 423 25-OH Vitamin D Total 8.2 L Folate 9.3 TSH 2.77 Stool Occult Blood Blood Type Antibody Screen Crossmatch Discharge Plan Discharge Anticipated Discharge Date/Time: 12/17/23 18:18 Patient Disposition: Left Against Medical Advice Discharge Diagnosis: ETOH, Anemia Referrals: Lizandro Teran MD [Primary Care Provider] - 1 Week Discharge Medications: New azithromycin 500 mg tablet 500 mg PO DAILY Qty: 3 0RF cefuroxime axetil 500 mg tablet 500 mg PO Q12H Qty: 10 0RF Continued Eliquis 5 mg tablet 5 mg PO BID 30 Days Qty: 60 5RF albuterol sulfate 90 mcg/actuation HFA aerosol inhaler 2 puff inhalation Q4-6H PRN (Reason: shortness of breath or wheezing) 30 Days Qty: 1 6RF hydroxychloroquine 200 mg tablet 200 mg PO BID Qty: 180 1RF multivitamin Tablet 1 tab PO DAILY (DME) walker Misc See Rx Instructions .ROUTE .MEDSUPPLY Qty: 1 0RF Rx Instructions: As directed buprenorphine-naloxone [Suboxone] 8-2 mg film 2 film sublingual DAILY (DME) SHOWER CHAIR See Rx Instructions .Route .MEDSUPPLY Qty: 1 0RF Rx Instructions: As directed prednisone 5 mg tablet 5 mg PO DAILY 90 Days Qty: 90 4RF Discharge Orders: Discharge Order (Routine); Ordered 12/17/23 Ordered By: Selam Quezada Print Language: [place] Care Plan Goals: Bronchopneumonia take antibiotics as prescribed, returned to ED with GI bleed worsening lightheadedness, dizziness ,weakness or near-syncope Health Concerns: Anemia/alcohol abuse/tobacco use disorder/malnutrition Plan of Treatment: Outpatient follow-up with primary care physician call for appointment Assessment: As above Discharge Date/Time: 12/17/23 18:09
== END 2023-12-17 18:09 | disposition left against medical advice (07) | DRG 139 ==
LOC: HO.ED 17:23 → HO.EDOVER 23:25 → HO.S3 23:52
PROVIDERS: Admitting Provider Internal Medicine; Emergency Provider Internal Medicine; PCP Internal Medicine; Visit Provider Hospitalist
DX: J18.0 Bronchopneumonia, unspecified organism (principal); E44.0 Moderate protein-calorie malnutrition; E87.1 Hypo-osmolality and hyponatremia; J44.9 Chronic obstructive pulmonary disease, unspecified; D64.9 Anemia, unspecified; E87.6 Hypokalemia; F10.239 Alcohol dependence with withdrawal, unspecified; F11.20 Opioid dependence, uncomplicated; F17.210 Nicotine dependence, cigarettes, uncomplicated; Z68.1 Body mass index [BMI] 19.9 or less, adult; Y90.7 Blood alcohol level of 200-239 mg/100 ml; Z71.6 Tobacco abuse counseling; Z79.01 Long term (current) use of anticoagulants; Z79.52 Long term (current) use of systemic steroids; Z79.899 Other long term (current) drug therapy
CPT/HCPCS: 36415; 71045; 80053; 80307; 81003; 82272; 82306; 82607; 82728; 82746; 83540; 83690; 83735; 83880; 84443; 85025; 85045; 85610; 86850; 86900; 86901; 86923; 93005; 93970; 99285; C9113; J0456; J0696; J2560; J3475; P9016

== ENCOUNTER → 2023-12-16 16:30 | Outpatient (BNV) | payer OTHER, SELFPAY | PROVIDERS: Admitting Provider Internal Medicine; Emergency Provider Internal Medicine; PCP Internal Medicine; Visit Provider Internal Medicine Cardiovascular Disease | DX: R94.31 Abnormal electrocardiogram [ECG] [EKG] (principal); R53.1 Weakness | CPT/HCPCS: 93010 ==

== ENCOUNTER → 2023-12-16 23:18 | Outpatient (BNV) | payer OTHER, SELFPAY | PROVIDERS: Admitting Provider Internal Medicine; Emergency Provider Internal Medicine; PCP Internal Medicine; Visit Provider Internal Medicine | DX: F10.20 Alcohol dependence, uncomplicated (principal); J18.9 Pneumonia, unspecified organism; D64.9 Anemia, unspecified; R06.02 Shortness of breath | CPT/HCPCS: 99222; 99239; 99499 ==

== ENCOUNTER 2023-12-28 16:34 | Inpatient (IN) | payer OTHER, SELFPAY ==
--- NOTE | ~2023-12-28 | XR_ITS ---
EXAMINATION: XR CHEST CLINICAL INFORMATION: Fall COMPARISON: 12/16/2023 TECHNIQUE: Frontal view of the chest was obtained. FINDINGS: The cardiomediastinal silhouette is stable. There is severe emphysema. There are increased interstitial markings and more patchy opacities in the right mid/lower lung paez and in the left lung base. There is blunting of the costophrenic sulci XR/XR chest 1V IMPRESSION: 1. Severe emphysema. 2. Increased interstitial markings and patchy opacities in the right mid/lower lung paez and in the left lung base could represent superimposed infiltrate.
--- NOTE | ~2023-12-28 | CT_ITS ---
EXAMINATION: CT HEAD WITHOUT CONTRAST CT CERVICAL SPINE WITHOUT CONTRAST CLINICAL INFORMATION: EtOH. Fall. On blood thinners. COMPARISON: CT head and cervical spine July 02, 2023 TECHNIQUE: Imaging was performed from the skull base to vertex without intravenous administration of contrast. In addition, helical noncontrast CT imaging was acquired through the cervical spine and source images were reviewed along with axial reconstructions and sagittal and coronal MPRs. [This CT examination was performed using dose optimization techniques as appropriate, variously including the following: *Automated exposure control *Adjustment of mA and/or kV according to patient size (this includes techniques or standardized protocols for targeted exams where dose is matched to indication/reason for exam; i.e. extremities or head) *Use of iterative reconstruction technique] DLP: 868 mGy-cm FINDINGS: HEAD: No intracranial mass, hemorrhage, or midline shift is visualized. There is generalized global volume loss. There is mild prominence of the ventricles and the sulci . There is mild hypodensity of the periventricular white matter due to chronic small vessel ischemic disease. There are vascular calcifications of the internal carotid arteries bilaterally. No extra-axial collections are identified. Mucosal thickening in the left maxillary sinus. Mastoid air cells and middle ear cavities are normally aerated. CERVICAL SPINE: There is no evidence of acute cervical spine fracture. Vertebral bodies remain normal in height. Cervical vertebrae have normal alignment. There is multilevel degenerative spondylosis of the cervical spine with disc height narrowing and endplate spurs and facet joint arthrosis No pre- or paravertebral soft tissue abnormality is identified. Vascular calcification of the carotid arteries bilaterally. Marked emphysematous change of the lung apices. CT/CT cervical spine wo IV con IMPRESSION: 1. No acute intracranial pathology. 2. No CT evidence of acute cervical spine fracture or traumatic subluxation
[2023-12-28 16:42] VITALS: BP 108/78; PULSE 111; O2SAT 94
[2023-12-28 16:44] VITALS: BP 128/86; PULSE 86; RESP 18; TEMP 36.4; O2SAT 95; BMI 14.1
--- NOTE | 2023-12-28 17:18 | ECG_ITS ---
Test Reason : FALL Blood Pressure : / mmHG Vent. Rate : 077 BPM Atrial Rate : 077 BPM P-R Int : 188 ms QRS Dur : 070 ms QT Int : 412 ms P-R-T Axes : 075 020 079 degrees QTc Int : 466 ms Normal sinus rhythm Low voltage QRS Cannot rule out Anteroseptal infarct (cited on or before 05-SEP-2021) Abnormal ECG When compared with ECG of 16-DEC-2023 16:30, No significant change was found Referred By: Samra Bradshaw Electronically Signed By:Erwin Lozoya
--- NOTE | 2023-12-28 18:02 | PC.NURSE ---
Pt presents from home via EMS. Reports he fell yesterday coming out of bathroom due to feeling weak. Pt denies head hit or LOC, is on blood thinners. Reports he felt so weak he could not get up, spent the night on the floor and then called for EMS today. Reports daily alcohol use, 10-12 drinks a day including today. Does have hx of alcohol withdrawal seizures years ago. Denies any drug use. Reports pain to left forearm, wrapped with gauze by EMS, abrasion. Alert and oriented, breathing even and unlabored, skin unkept and dirty. Multiple abrasions and bruises noted to all of body of different stages of healing. Pupils uneven. Neg for slurred speech or unilateral weakness. Denies SOB, chest pain, headache or changes in vision
--- NOTE | 2023-12-28 18:02 | ED.FALL ---
HPI - Fall General Chief Complaint: Fall Stated Complaint: FALL WITH ETOH PER EMS Time Seen by Provider: 12/28/23 16:46 Source: patient and EMS Mode of arrival: EMS Limitations: no limitations History of Present Illness ED Provider: Dr. Samra Bradshaw HPI Narrative: Patient comes to the emergency room complaining of a fall secondary to weakness. Patient states that yesterday night, patient was walking out to his bed from the bathroom, patient states that his legs gave out and landed on the ground. Patient states that he did not hit his head or lost consciousness. Patient admits being on blood thinners. Patient states that he was too weak to get up. Patient was able to drag himself to a nearby couch. But patient was too weak to get up from the floor. Patient states he spent the whole night on the floor until the morning when his girlfriend found him laying on the floor. Patient admits to drinking alcohol. Patient states that from the fall he has abrasions in his forearm, otherwise no pain. Patient states that he has been gradually getting much weaker to the point that he can no longer take care of himself. Of note, patient was discharged from the inpatient floor 1-1/2 weeks ago, patient was admitted for normocytic anemia requiring blood transfusion, alcohol abuse and withdrawal, hyponatremia, hypokalemia and pneumonia Related Data Home Medications ?Medication ?Instructions ?Recorded ?Confirmed buprenorphine 8 mg-naloxone 2 mg 2 film sublingual DAILY 08/10/20 12/17/23 sublingual film (Suboxone) multivitamin 1 tab PO DAILY 09/05/21 12/17/23 Previous Rx's ?Medication ?Instructions ?Recorded walker #1 ea 02/14/23 SHOWER CHAIR #1 ea 03/09/23 apixaban 5 mg tablet (Eliquis) 5 mg PO BID 30 days #60 tabs 08/14/23 albuterol sulfate 90 mcg/actuation 2 puff inhalation Q4-6H PRN 08/19/23 aerosol inhaler shortness of breath or wheezing 30 days #1 ea prednisone 5 mg tablet 5 mg PO DAILY 90 days #90 tabs 09/24/23 hydroxychloroquine 200 mg tablet 200 mg PO BID #180 tabs 12/14/23 Allergies Allergy/AdvReac Type Severity Reaction Status Date / Time Sulfa (Sulfonamide AdvReac Intermediate NAUSEA & Verified 12/28/23 16:57 Antibiotics) VOMITING [SULFA (SULFONAMIDE ANTIBIOTICS)] doxycycline AdvReac Mild Vomiting Verified 12/16/23 16:09 Review of Systems Review of Systems: Constitutional : No Weight loss, No Fever, No Chills, No Night Sweats, complaining of fatigue, generalized weakness ENT/Mouth : No Hearing loss, No Ear Pain, No Nasal Congestion, No Sinus Pain, No Hoarseness, No sore throat, No Rhinorrhea, No Swallowing Difficulty Eyes: No Eye Pain, No Swelling, No Redness, No Foreign Body, No Discharge, No Vision Changes Cardiovascular : No Chest Pain, No SOB, No Dyspnea on Exertion, No Orthopnea, No Edema, No Palpitations Respiratory : No Cough, No Sputum, No Wheezing, No Smoke Exposure, No Dyspnea Gastrointestinal : No Nausea, No Vomiting, No Diarrhea, No Constipation, No abdominal Pain, No Hematochezia, No Melena Genitourinary : no irregular bleeding, No Dysuria, No Urinary Frequency, No Hematuria, No Urinary Incontinence, No Urgency, No Flank Pain, No Urinary Flow Changes, No Hesitancy Musculoskeletal : No joint pain, No Myalgias, No Joint Swelling Skin : Complaining of multiple skin tears and abrasions and ecchymosis Neuro : No Weakness, No Numbness, No Paresthesias, No Loss of Consciousness, No Dizziness, No Headache Psych : No Anxiety/Panic, No Depression, No SI/HI/AH/VH, No Social Issues, Heme/Lymph: Easy bruising from blood thinners Endocrine : No Polyuria, No Polydipsia, No Temperature Intolerance [facility] Past Medical History Medical History Shortness of breath on exertion Chronic kidney disease, stage III (moderate) AA (alcohol abuse) Pneumonia with cavity of lung Elevated LFTs Chronic deep vein thrombosis (DVT) of left lower extremity Bilateral leg weakness Alcohol withdrawal Abnormal EKG Lung abscess Abdominal hernia Varicose veins of both lower extremities Alcohol use Smoker Anxiety Abscess of lung Bilateral pneumonia Deep vein thrombosis of left lower extremity COPD (chronic obstructive pulmonary disease) History of substance abuse Epidermal cyst Pulmonary emphysema Surgical History History of laparoscopic cholecystectomy (~08/19/22) Family History Family History Father CVD (cardiovascular disease) Mother Rheumatoid arthritis Sister No problems noted. Maternal Uncle Prostate cancer Maternal Uncle Lung cancer Colon cancer Social History Social History Household Members: Friend(s) Household Members Other:: 1 friend Housing: Apartment Housing Other:: with roomate Are you a primary director of home care hospice to a significant other at home: No Do you presently have visiting nurse or other home services: No Alcohol intake: current Alcohol intake frequency: 3 or more drinks per day Alcohol type: beer Comment: patent refusing all alarms Patient Tobacco Use Status: Current everyday Tobacco user Tobacco use type: Cigarette Cigarette Packs Per Day: 3 Cigarettes Per Day: 60.0 Years Smoked: 40 Smoked in Last 30 Days: Yes e-Cigarette/Vaping Use: Former Use Second Hand Smoke Exposure: Yes Use of substances other than those prescribed or required for medical reasons: No Advance Directives: No Advance Directives Information Provided: No service: No Current occupational status: employed Current occupation: rt hand / golf [employer] Cognitive needs: No Hearing needs: No Vision needs: Yes Physical Exam Vital Signs: Vital Signs: Last Vital Signs Temp 97.9 F 12/28/23 20:30 Pulse 78 12/28/23 20:30 Resp 15 12/28/23 20:30 BP 124/78 12/28/23 20:30 Pulse Ox 97 12/28/23 20:30 O2 Del Method Room Air 12/28/23 20:30 BMI result Body Mass Index 14.1 Const: Other: Appearance: Alert. Oriented X3. No acute distress. Cachectic Eyes: Pupils equal, round and reactive to light. ENT: Pharynx normal. Neck: Normal inspection. Neck supple. No lymph nodes noted. No crepitus CVS: Normal heart rate and rhythm. Pulses normal. Normal S1 and S2 Respiratory: No respiratory distress. Breath sounds normal. No Wheezing. No rales Abdomen: Soft and nontender. No rigidity. No distention. Skin: Skin warm and dry. Patient has multiple abrasions, skin tears in different stages of healing Extremities: No lower extremity edema. No Lacerations. No Rash Neuro: Oriented X 3. No motor deficit. No sensory deficit. Moving all extremities. No slurred speech. CN 2 through 12 grossly intact Psych: calm, cooperative, normal affect Course Course Course Narrative: All of patient's labs and imaging pending -patient is too weak to get up. Patient will either be admitted medically to the floor or will be case management. Depending on results of lab work Medications Administered Discontinued Medications Generic Name Dose Route Start Last Admin Trade Name Radha PRN Reason Stop Dose Admin Magnesium Oxide 800 mg 12/28/23 20:03 12/28/23 20:31 Magnesium Oxide 400 Mg Tablet PO 12/28/23 20:04 800 mg ONCE ONE Administration Medical Decision Making Medical Decision Making [facility] Narrative: -my interpretation of EKG: Normal sinus rhythm, heart rate 77, no ST segment depression or elevation, no T-wave inversion, QTC 466 -my interpretation of labs: Hematology at baseline, INR normal, mild hyponatremia at baseline with a sodium of 131, normal potassium, lactic acid 2.4, likely secondary to ETOH consumption which she admits to drink before arriving to the ED. Sepsis not suspected. Magnesium 1.5, being repleted p.o.. Calcium 7.6 and albumin 2.3, both chronic. Urinalysis negative for UTI, urine toxicology positive for buprenorphine and barbiturates and ETOH -my interpretation of head CT and cervical spine CT, no intracranial bleed, no cervical spine fracture -my interpretation of x-ray, hyperinflated lungs. Radiology report: Severe emphysema, possible superimposed infiltrate. At this time, patient has no signs of pneumonia or chronic lung disease exacerbation. Patient is not coughing, no chest pain no shortness of breath, normal blood pressure, oxygen saturation 95% on room air, no increasing O2 demand -patient will be empirically given p.o. antibiotics. However, these finding is unlikely to be the cause of patient's symptoms -patient will be PT/case management, patient can not get up and walk, there has no criteria for admission PT/CM pending Physician observation started at 20:15 -21:00: Patient was evaluated by case management. Patient states that he is very happy drinking alcohol and taking Suboxone. Patient has been clean of oxycodone for at least 14 years with Suboxone. Patient states that he has no intention to stop drinking alcohol. Patient states that he does not want to go to a rehab because they will not allow him to drink there. Patient states that he would like home PT. -it was discussed with the patient that in order to have home physical therapy, he needs to be able to walk. Patient states that tomorrow he will give it his best shot, as he has no desire of going to detox or rehab where he can not drink alcohol Differential Diagnosis Differential Diagnoses: The differential diagnosis associated with the presentation includes (Adult failure to thrive, chronic alcoholism, weakness) Admission/Observation Consideration of admission/observation: Escalation of care including admission/observation considered (Patient is under physician observation waiting for the care team and case management) Lab Data MDM Lab Attestation statement: I reviewed the patient's lab results. 12/28/23 18:27 12/28/23 18:27 Labs: Lab Results 12/28/23 Range/Units 18:27 WBC 5.4 (4.8-10.8) X10*3/uL RBC 3.75 L (4.60-5.80) X10*6/uL Hgb 10.5 L (14.0-18.0) g/dl Hct 31.0 L (42.0-52.0) % MCV 82.7 (80.0-98.0) fL MCH 28.0 (27.0-33.0) pg MCHC 33.9 (31.0-36.0) g/dl RDW 18.5 H (11.0-16.0) % Plt Count 192 D (160-400) X10*3/uL MPV 9.6 (9.4-12.4) fL Immature Gran % (Auto) 0.6 H (0.0-0.4) % Neut % (Auto) 74.6 H (45-73) % Lymph % (Auto) 15.6 L (20-40) % Merrick % (Auto) 8.0 (2-11) % Eos % (Auto) 0.6 (0-4) % Baso % (Auto) 0.6 (0-2) % Lymph # (Auto) 0.8 L (1.2-4.9) X10*3/uL Merrick # (Auto) 0.4 (0.1-1.2) X10*3/uL Eos # (Auto) 0.0 (0.0-0.4) X10*3/uL Baso # (Auto) 0.0 (0.0-0.2) X10*3/uL Abs Immat Gran (auto) 0.03 (0.00-0.03) X10*3/uL Absolute Neuts (auto) 4.0 (2.0-8.3) x10*3/uL Absolute Nucleated RBC 0.000 (0.0-0.012) X10*3/uL Nucleated RBC % (auto) 0.0 (0.0-0.2) /100WBC PT 11.1 (11.1-13.3) SEC INR 0.9 (0.9-1.1) Sodium 131 L (135-145) mmol/L Potassium 3.8 D (3.3-5.1) mmol/L Chloride 97 (96-108) mmol/L Carbon Dioxide 24 (22-29) mmol/L Anion Gap 14 (12-20) BUN < 3 L (9-16) mg/dL Creatinine 0.44 L (0.5-1.4) mg/dL Estim Creat Clear Calc 129.8 Estimated GFR > 60 Random Glucose 72 (60-115) mg/dL Lactic Acid 2.4 H* (0.5-2.0) mmol/L Calcium 7.6 L (8.4-10.2) mg/dL Magnesium 1.5 L (1.6-2.6) mg/dL Total Bilirubin 0.3 (0.0-1.0) mg/dL Direct Bilirubin 0.2 (0.0-0.5) mg/dL AST 111 H (5-37) U/L ALT 37 (0-40) U/L Alkaline Phosphatase 363 H (39-117) U/L Total Creatine Kinase 193 H (38-174) U/L Troponin I High Sens 3.1 D (<3.5-35.0) ng/L B-Natriuretic Peptide 109 H (<100) pg/mL Total Protein 7.1 (6.5-8.0) g/dL Albumin 2.3 L (3.5-5.0) g/dL Lipase 15 (8-78) U/L TSH 2.29 (0.32-4.0) uIU/mL Urine Color Yellow Urine Appearance Clear Urine pH 6.5 (5.0-9.0) Ur Specific [place] <= 1.005 (1.005-1.025) Urine Protein Negative (Neg-Trace) mg/dL Urine Glucose (UA) Negative (Negative) mg/dL Urine Ketones Negative (Negative) mg/dL Urine Blood Negative (Negative) Urine Nitrite Negative (Negative) Ur Leukocyte Esterase Negative (Negative) Urine Opiates Screen Not Detected (Not Detect) Ur Buprenorphine Scrn Positive H (Not Detect) ng/mL Ur Oxycodone Screen Not Detected (Not Detect) ng/mL Urine Methadone Screen Not Detected (Not Detect) ng/mL Urine Fentanyl Screen Not Detected (Not Detect) Ur Barbiturates Screen POSITIVE H (Not Detect) Ur Phencyclidine Scrn Not Detected (Not Detect) Ur Amphetamines Screen Not Detected (Not Detect) U Benzodiazepines Scrn Not Detected (Not Detect) Urine Cocaine Screen Not Detected (Not Detect) U Marijuana (THC) Screen Not Detected (Not Detect) Ethyl Alcohol 217 mg/dL COVID-19 (QUINTIN) Negative (Negative) COVID-19 Clin Com See Note Influenza Type A (HAFSA) Negative (Negative) Influenza Type B (HAFSA) Negative (Negative) Influenza A & B Note See Note Independent Interpretation I performed an independent interpretation of an: Plain X-Ray and CT Scan Radiology Impression Discussion of test interpretation with radiology: I have reviewed the radiologist's reading. Radiologist Impression: FINDINGS: The cardiomediastinal silhouette is stable. There is severe emphysema. There are increased interstitial markings and more patchy opacities in the right mid/lower lung paez and in the left lung base. There is blunting of the costophrenic sulci XR/XR chest 1V IMPRESSION: 1. Severe emphysema. 2. Increased interstitial markings and patchy opacities in the right mid/lower lung paez and in the left lung base could represent superimposed infiltrate. HEAD: No intracranial mass, hemorrhage, or midline shift is visualized. There is generalized global volume loss. There is mild prominence of the ventricles and the sulci . There is mild hypodensity of the periventricular white matter due to chronic small vessel ischemic disease. There are vascular calcifications of the internal carotid arteries bilaterally. No extra-axial collections are identified. Mucosal thickening in the left maxillary sinus. Mastoid air cells and middle ear cavities are normally aerated. CERVICAL SPINE: There is no evidence of acute cervical spine fracture. Vertebral bodies remain normal in height. Cervical vertebrae have normal alignment. There is multilevel degenerative spondylosis of the cervical spine with disc height narrowing and endplate spurs and facet joint arthrosis No pre- or paravertebral soft tissue abnormality is identified. Vascular calcification of the carotid arteries bilaterally. Marked emphysematous change of the lung apices. CT/CT cervical spine wo IV con IMPRESSION: 1. No acute intracranial pathology. 2. No CT evidence of acute cervical spine fracture or traumatic subluxation Critical Care Time Critical Care Time Critical Care Time: Yes Total Critical Care Time: 45 Attestation: I have personally provided critical care time. Time includes review of lab data, radiology results, discussion with consultants, and monitoring for potential decompensation. Intervention performed as documented. Discharge Plan Discharge Clinical Impression: Weakness, Adult failure to thrive, Alcohol dependence, Fall, Abrasion of skin Patient Disposition: Still a Patient Prescriptions: No Action Eliquis 5 mg tablet 5 mg PO BID 30 Days Qty: 60 5RF albuterol sulfate 90 mcg/actuation HFA aerosol inhaler 2 puff inhalation Q4-6H PRN (Reason: shortness of breath or wheezing) 30 Days Qty: 1 6RF hydroxychloroquine 200 mg tablet 200 mg PO BID Qty: 180 1RF multivitamin Tablet 1 tab PO DAILY (DME) walker [facility] [place] See Rx Instructions .ROUTE .MEDSUPPLY Qty: 1 0RF Rx Instructions: As directed buprenorphine-naloxone [Suboxone] 8-2 mg film 2 film sublingual DAILY (DME) SHOWER CHAIR See Rx Instructions .Route .MEDSUPPLY Qty: 1 0RF Rx Instructions: As directed prednisone 5 mg tablet 5 mg PO DAILY 90 Days Qty: 90 4RF Print Language: Austrian
--- NOTE | 2023-12-28 18:06 | PC.NURSE ---
Pt changed over into safety clothing. Refuses to have belongings taken, remains behind the bed.
[2023-12-28 18:38] LABS: MANUAL DIFF FLAG NO
[2023-12-28 18:43] LABS: Appearance Urine Clear; Color Urine Yellow; Glucose Urine UA Negative (Negative); Leukocyte Esterase Urine Negative (Negative); Nitrite Urine Negative (Negative); PH 6.5 (5.0-9.0); Specific Gravity - Urine <= 1.005 (1.005-1.025); Urine Blood Negative (Negative); Urine Ketones Negative (Negative); Urine Protein Negative (Neg-Trace)
[2023-12-28 18:50] LABS: Basophils Percent Auto 0.6 % (0-2); Eosinophils Percent Auto 0.6 % (0-4); Hemoglobin 10.5 g/dl (14.0-18.0); INTERNATIONAL NORM RATIO 0.9 (0.9-1.1); Imm Gran Abs Auto 0.03 X10*3/uL (0.00-0.03); Imm Gran Pct Auto 0.6 % (0.0-0.4); Lymphocytes Absolute Auto 0.8 X10*3/uL (1.2-4.9); Lymphocytes Percent Auto 15.6 % (20-40); Mean Corpuscular HGB Conc 33.9 g/dl (31.0-36.0); Mean Corpuscular Volume 82.7 fL (80.0-98.0); Mean Platelet Volume 9.6 fL (9.4-12.4); Monocytes Absolute Auto 0.4 X10*3/uL (0.1-1.2); Neutrophils Percent Auto 74.6 % (45-73); Platelet Count 192 X10*3/uL (160-400); Prothrombin Time 11.1 SEC (11.1-13.3); Red Blood Count 3.75 X10*6/uL (4.60-5.80); Red Cell Distribution Width 18.5 % (11.0-16.0); White Blood Count 5.4 X10*3/uL (4.8-10.8)
[2023-12-28 18:52] LABS: Amphetamine Screen Urine Not Detected (Not Detect); Barbiturates, Urine POSITIVE (Not Detect); Benzodiazepines Screen Urine Not Detected (Not Detect); Buprenorphine Scr Positive (Not Detect); Cannabinoid Screen Urine Not Detected (Not Detect); Cocaine Screen Urine Not Detected (Not Detect); Fentanyl, urine Not Detected (Not Detect); Methadone Screen, Urine Not Detected (Not Detect); Opiate Screen Urine Not Detected (Not Detect); Oxycodone Screen Urine Not Detected (Not Detect); Phencyclidine Screen Urine Not Detected (Not Detect)
[2023-12-28 19:01] LABS: COVID-19 Test Negative (Negative); IDNOW Serial# 08D9AD1C; IDNOW Serial# 152EDE1D; Influenza A Negative (Negative); Influenza B2 Negative (Negative)
[2023-12-28 19:09] LABS: Alanine Aminotransferase 37 U/L (0-40); Albumin Level 2.3 g/dL (3.5-5.0); Alkaline Phosphatase 363 U/L (39-117); Anion Gap 14 (12-20); Aspartate Amino Transferase 111 U/L (5-37); Bilirubin Direct 0.2 mg/dL (0.0-0.5); Bilirubin Total 0.3 mg/dL (0.0-1.0); Blood Urea Nitrogen < 3 mg/dL (9-16); Calcium 7.6 mg/dL (8.4-10.2); Carbon Dioxide 24 mmol/L (22-29); Chloride 97 mmol/L (96-108); Creatinine Clr Calc Pharmacy 129.8; Estimated Glomerular Filt Rate > 60; Glucose Random 72 mg/dL (60-115); Lipase 15 U/L (8-78); Magnesium 1.5 mg/dL (1.6-2.6); Potassium 3.8 mmol/L (3.3-5.1); Sodium 131 mmol/L (135-145); Total Protein 7.1 g/dL (6.5-8.0)
[2023-12-28 19:11] LABS: B Type Natriuretic Peptide 109 pg/mL (<100); Ethanol 217 mg/dL
[2023-12-28 19:15] LABS: Troponin-I High Sensitivity 3.1 ng/L (<3.5-35.0)
[2023-12-28 19:18] LABS: Lactic Acid 2.4 mmol/L (0.5-2.0)
--- NOTE | 2023-12-28 19:25 | PC.NURSE ---
this rn assumed care of pt, pt resting in stretcher, no acute distress noted. pt changed into green gown, noted to still have items at bedside. imcu specialist young aware and security called to remove pt items.
[2023-12-28 19:30] LABS: TSH reflex Free T4 2.29 uIU/mL (0.32-4.0)
[2023-12-28 20:30] VITALS: BP 124/78; PULSE 78; RESP 15; TEMP 36.6; O2SAT 97
[2023-12-28] MEDS: Magnesium Oxide 400 MG TABLET 800 MG PO (20:31)
--- NOTE | 2023-12-28 20:33 | PC.NURSE ---
pt medicated per mar, tolerated well with water. per security, pt has unsteady gait, okayed for pt to keep belongings at bedside. security reports searching pt and finding no sharps.
[2023-12-28 20:37] LABS: Reflex Lactate? Lactic Acid Added
--- NOTE | 2023-12-28 21:13 | MHC.CM.ED ---
CM met with patient at the request of Dr. Bradshaw. Pt was admitted on 12/15-12/16 with anemia, ETOH withdrawl and weakness. Pt signed out AMA. Pt was awakened for assessment. Appears unkempt, thin and in poor health. Pt tells CM that [place] [facility] [place] he can no longer walk. States he has lost too much weight. He admits to eating less. Pt has been in the ED 6 times in 3 months. Pt admits to daily drinking of alcohol. Pt declines detox. States he is happy drinking and has no intention of quiting . Pt is a smoker. Pt is agreeble to a nicotine patch. Pt has a rollator walker, but admits to not using it when he fell. Pt admits to drinking last night. Pt drank prior to coming to the ED ETOH 217. Patient takes suboxone. States he had a problem with 'popping pills Oxy's and states he has been clean of pills for 14 years. Pt is agreeable to PT evaluation, but will not go to a facility because he cannot drink or smoke. Would like to have home PT if recommended. Pt lives with a room mate, Yarely Capone ([phone]). HCP was completed on last admission. HCP/sister Delfina Hooks ([phone]). CM asked patient if he cannot walk, how does he think he could go home? Pt had no response. Dr. Bradshaw aware of above conversation. Pt will remain overnight for PT evaluation. Per Dr. Bradshaw, if he has symptoms of alcohol withdrawl, then he will be admitted. No referrals made at this time due to patient adamantly refusing STR. CM will follow for discharge planning.
[2023-12-28] MEDS: cefuroxime axetiL 500 MG TABLET PO (21:23)
[2023-12-28] MEDS: Azithromycin 500 MG TABLET PO (21:25)
[2023-12-28] MEDS: Nicotine 21 MG PATCH.TD24 TRANSDERMA (21:25)
--- NOTE | 2023-12-28 21:31 | PC.NURSE ---
pt medicated per aug, tolerated large pills well cut with water. nicotine patch placed on right upper arm.
[2023-12-28 21:50] LABS: ~Lactic Acid-LAB USE ONLY 2.1 mmol/L (0.5-2.0)
--- NOTE | 2023-12-28 22:08 | PC.NURSE ---
per dr. honorio oneil to not redraw repeat lactic acid. report called to overflow.
[2023-12-28 23:09] LABS: Reflex Lactate? 2 Y
[2023-12-29] VITALS (10 sets, daily range): BP systolic 132–157; BP diastolic 92–109; PULSE 102–141; RESP 13–22; TEMP 36.2–37.4; O2SAT 95–98
--- NOTE | 2023-12-29 | ECG_ITS ---
Test Reason : ETOH WITHDRAWAL Blood Pressure : / mmHG Vent. Rate : 135 BPM Atrial Rate : 135 BPM P-R Int : 168 ms QRS Dur : 070 ms QT Int : 288 ms P-R-T Axes : 000 -35 084 degrees QTc Int : 432 ms Sinus tachycardia Left axis deviation Anteroseptal infarct (cited on or before 05-SEP-2021) Abnormal ECG When compared with ECG of 28-DEC-2023 17:35, Vent. rate has increased BY 58 BPM Referred By: Leora Puckett Electronically Signed By:Erwin Lozoya
[2023-12-29] MEDS: LORazepam 1 MG TABLET 2 MG PO ×2 (03:13→09:10)
[2023-12-29] MEDS: Thiamine HCL 100 MG TABLET PO ×2 (03:13→09:10)
--- NOTE | 2023-12-29 06:34 | PC.NURSE ---
Patient c/o alcohol withdrawal symptoms. Provider notified, Ativan 2 mg po ordered/administered with good effect. Patient had suboxone in bag at bedside, refusing to allow this RN to lock medication . Security and nursing field pipe lines supervisor removed med from bag. Will be sent to the pharmacy until time of discharge. Patient slept throughout night.
--- NOTE | 2023-12-29 08:49 | MHC.CM.ED ---
Addendum entered by Ema Collado 12/29/23 09:06: Received notification patient will be admitted due to ETOH withdrawal. Original Note: Patient remains in ER overflow. CIWA currently 15. BP elevated. Brigitte NICHOLAS made aware. Continue to monitor for d/c needs.
--- NOTE | 2023-12-29 09:51 | PC.NURSE ---
Pt moved back over to main ER. RN/RN report given. Virtual monitoring made aware of pt new room number
--- NOTE | 2023-12-29 10:03 | PM.IMHP ---
History of Present Illness Date of Service: 12/29/23 Chief Complaint: Fall, alcohol withdrawal A 53years old male with PMH of alcohol abuse, DVT on eliquis, falls, COPD, smoker among others who presents to the hospital after having a fall at home. The patient reports falling at home while walking to the bathroom as his legs felt too weak. denies head injury or loss of consciousness. he was able to crawl to the couch but could not stand up and spent the rest of the night of the floor. In ED he was monitored after taking care of abrasions from the fall but no bleeding. He started to showi withdrawal symptoms requring admission to medical floor along with low Mg level and hyponatremia with mild transaminitis. Review of Systems Review of Systems: reporting weakness No chest pain, palpitation No shortness of breath or coughing No abdominal pain, nausea or vomiting No urinary symptoms abrasions PMFSH Medical History Shortness of breath on exertion Chronic kidney disease, stage III (moderate) AA (alcohol abuse) Pneumonia with cavity of lung Elevated LFTs Chronic deep vein thrombosis (DVT) of left lower extremity Bilateral leg weakness Alcohol withdrawal Abnormal EKG Lung abscess Abdominal hernia Varicose veins of both lower extremities Alcohol use Smoker Anxiety Abscess of lung Bilateral pneumonia Deep vein thrombosis of left lower extremity COPD (chronic obstructive pulmonary disease) History of substance abuse Epidermal cyst Pulmonary emphysema Family History Father CVD (cardiovascular disease) Mother Rheumatoid arthritis Sister No problems noted. Maternal Uncle Prostate cancer Maternal Uncle Lung cancer Colon cancer Surgical History History of laparoscopic cholecystectomy (~08/19/22) Social History Household Members: Friend(s) Household Members Other:: 1 friend Housing: Apartment Housing Other:: with roomate Are you a primary healthcare analyst to a significant other at home: No Do you presently have visiting nurse or other home services: No Alcohol intake: current Alcohol intake frequency: 3 or more drinks per day Alcohol type: beer and hard liquor Comment: patent refusing all alarms Patient Tobacco Use Status: Current everyday Tobacco user Tobacco use type: Cigarette Cigarette Packs Per Day: 3 Cigarettes Per Day: 60.0 Years Smoked: 40 e-Cigarette/Vaping Use: Former Use Second Hand Smoke Exposure: Yes Substance Use Type: Former Substance User service: No Current occupational status: employed Current occupation: rt hand / golf course Cognitive needs: No Hearing needs: No Vision needs: Yes Meds Allergies Allergy/AdvReac Type Severity Reaction Status Date / Time Sulfa (Sulfonamide AdvReac Intermediate NAUSEA & Verified 12/28/23 16:57 Antibiotics) VOMITING [SULFA (SULFONAMIDE ANTIBIOTICS)] doxycycline AdvReac Mild Vomiting Verified 12/16/23 16:09 Active Medications: Current Medications Acetaminophen (Acetaminophen 325 Mg Tablet) 650 mg PO Q6H PRN PRN Reason: Pain, Mild (Pain Scale 1-3), fever or headache Benzonatate (Benzonatate 100 Mg Capsule) 100 mg PO TID PRN PRN Reason: Cough Calcium Carbonate (Calcium Carbonate 750 Mg Tab.Chew) 750 mg PO Q4H PRN PRN Reason: Heartburn Cefuroxime Axetil (Cefuroxime Axetil 500 Mg Tablet) 500 mg PO BID [facility] Last Admin: 12/28/23 21:23 Dose: 500 mg Doxycycline Monohydrate (Doxycycline Monohydrate 100 Mg Capsule) 100 mg PO BID [facility] Stop: 01/05/24 08:59 Magnesium Sulfate (Magnesium Sulfate/H2o) 2 gm in 50 mls @ 25 mls/hr IV ONCE ONE Stop: 12/29/23 11:55 Lactated Ringer's (Lr) 1,000 mls @ 100 mls/hr IVCONT .Q10H [facility] Lorazepam (Lorazepam 1 Mg Tablet) 2 mg PO RQ4H WHILE AWAKE PRN PRN Reason: Alcohol Withdrawal Last Admin: 12/29/23 09:10 Dose: 2 mg Magnesium Hydroxide (Milk Of Magnesia 30 Ml Oral.Susp) 30 ml PO DAILY PRN PRN Reason: Constipation Magnesium Oxide (Magnesium Oxide 400 Mg Tablet) 400 mg PO DAILY [facility] Melatonin (Melatonin 3 Mg Tablet) 6 mg PO BEDTIME PRN PRN Reason: Insomnia Nicotine (Nicotine 21 Mg Patch.Td24) 21 mg TRANSDERMA DAILY [facility] Ondansetron HCl (Ondansetron Hcl 4 Mg/2 Ml Vial) 4 mg IVPUSH Q8H PRN PRN Reason: Nausea and Vomiting Pharmacy Consult (Consult Rx Etoh Phenob Im/Po) 1 each MISCELLANE ONCE PRN; Protocol PRN Reason: Consult order Phenobarbital (Phenobarbital 30 Mg Tablet) 30 mg PO BID [facility]; Protocol Stop: 12/31/23 09:01 Phenobarbital (Phenobarbital 15 Mg Tablet) 15 mg PO BID [facility]; Protocol Stop: 01/02/24 09:01 Phenobarbital (Phenobarbital 15 Mg Tablet) 15 mg PO BEDTIME [facility]; Protocol Stop: 01/03/24 21:01 Phenobarbital Sodium (Phenobarbital Sodium 130 Mg/Ml Vial Im Q3hx2) 170 mg IM Q3H [facility]; Protocol Stop: 12/29/23 15:31 Sodium Chloride (0.9 % Sodium Chloride Flush 3 Ml Syringe) 3 ml IVFLUSH QSHIFT [facility] Thiamine HCl (Thiamine Hcl 100 Mg Tablet) 100 mg PO DAILY [facility] Last Admin: 12/29/23 09:10 Dose: 100 mg Home Medications ?Medication ?Instructions ?Recorded ?Confirmed ?Last Taken ?Type buprenorphine 8 mg-naloxone 2 mg 2 film sublingual DAILY 08/10/20 12/17/23 12/15/23 History sublingual film (Suboxone) multivitamin 1 tab PO DAILY 09/05/21 12/17/23 Unknown History Physical Exam Vital Signs and Narrative: Vital Signs: Last Vital Signs Temp 98.2 F 12/29/23 08:00 Pulse 102 H 12/29/23 08:00 Resp 18 12/29/23 08:00 BP 141/92 H 12/29/23 08:00 Pulse Ox 97 12/29/23 08:00 O2 Del Method Room Air 12/29/23 08:00 BMI result Body Mass Index 14.1 Const: Other: Constitutional : Awake, sleepy, not in distress Neck : Normal inspection, Supple Cardiovascular : RRR, no JVP, no lower extremity edema Respiratory : good bilateral air entry, RLL fine crackles, no wheezes or rhonchi Gastrointestinal: soft, lax, Normal bowel sounds, Non tender Skin : Warm, Dry Neurological : Alert & oriented x3, No focal deficit Results Labs 12/28/23 18:27 12/28/23 18:27 Labs: Laboratory Results - last 24 hr 12/28/23 12/28/23 18:27 21:06 MCV 82.7 MCH 28.0 MCHC 33.9 RDW 18.5 H Plt Count 192 D MPV 9.6 Immature Gran % (Auto) 0.6 H Neut % (Auto) 74.6 H Lymph % (Auto) 15.6 L [place] % (Auto) 8.0 Eos % (Auto) 0.6 Baso % (Auto) 0.6 Lymph # (Auto) 0.8 L [place] # (Auto) 0.4 Eos # (Auto) 0.0 Baso # (Auto) 0.0 Abs Immat Gran (auto) 0.03 Absolute Neuts (auto) 4.0 Absolute Nucleated RBC 0.000 Nucleated RBC % (auto) 0.0 PT 11.1 INR 0.9 Anion Gap 14 Estim Creat Clear Calc 129.8 Estimated GFR > 60 Random Glucose 72 Lactic Acid 2.4 H* Lactic Acid F/U @ 2Hr 2.1 H* Calcium 7.6 L Magnesium 1.5 L Total Bilirubin 0.3 Direct Bilirubin 0.2 AST 111 H ALT 37 Alkaline Phosphatase 363 H Total Creatine Kinase 193 H Troponin I High Sens 3.1 D B-Natriuretic Peptide 109 H Total Protein 7.1 Albumin 2.3 L Lipase 15 TSH 2.29 Urine Color Yellow Urine Appearance Clear Urine pH 6.5 Ur Specific Prole <= 1.005 Urine Protein Negative Urine Glucose (UA) Negative Urine Ketones Negative Urine Blood Negative Urine Nitrite Negative Ur Leukocyte Esterase Negative Urine Opiates Screen Not Detected Ur Buprenorphine Scrn Positive H Ur Oxycodone Screen Not Detected Urine Methadone Screen Not Detected Urine Fentanyl Screen Not Detected Ur Barbiturates Screen POSITIVE H Ur Phencyclidine Scrn Not Detected Ur Amphetamines Screen Not Detected U Benzodiazepines Scrn Not Detected Urine Cocaine Screen Not Detected U Marijuana (THC) Screen Not Detected Ethyl Alcohol 217 COVID-19 (QUINTIN) Negative COVID-19 Clin Com See Note Influenza Type A (HAFSA) Negative Influenza Type B (HAFSA) Negative Influenza A & B Note See Note Imaging Radiologist's Impressions: Impressions Chest X-Ray 12/28/23 17:32 IMPRESSION: 1. Severe emphysema. 2. Increased interstitial markings and patchy opacities in the right mid/lower lung paez and in the left lung base could represent superimposed infiltrate. Cervical Spine CT 12/28/23 17:50 IMPRESSION: 1. No acute intracranial pathology. 2. No CT evidence of acute cervical spine fracture or traumatic subluxation Head CT 12/28/23 17:50 IMPRESSION: 1. No acute intracranial pathology. 2. No CT evidence of acute cervical spine fracture or traumatic subluxation Assessment and Plan (1) Abrasion of skin: Status: Acute (2) Alcohol dependence: Status: Acute (3) Fall: Status: Acute (4) Pneumonia: Status: Acute (5) Alcohol dependence: Status: Acute Plan A 53years old male with PMH of alcohol abuse, DVT on eliquis, falls, COPD, smoker among others who presents to the hospital after having a fall at home. Acute Alcohol withdrawal w hx alcohol abuse Monitor [facility] addiction team consult Started Phenobarbitol protocol received Lorazepam in ED, DC now IV fluids reorientation as needed Pneumonia No hypoxia, not septic PO Antibiotics of Doxycycline and Ceftin , started in ED 12/29/23 Hypomagnesemia replacement and recheck Fall PT eval Hx DVT on Eliquis continue home meds Hx COPD not in exacerbation Continue home Meds chronic normocytic anemia, no acute blood loss noted Chronic Hyponatremia. mild, fluid restriction, monitor Na History of substance abuse. Continue Suboxone. Moderate-severe calorie protein malnutrition. adult failure to thrive. BMI lower at 14.1. add Ensure, Elevator Runner consult. Tobacco use disorder. advised to quit. nicotine patch. DVT PPx Eliquis the patient will likely need 2 overnight hospital stay for treatment of alcohol withdrawal pending CIWA score improvement, PT evaluation . Quality Stroke Does the patient have a stroke diagnosis?: No VTE Prior VTE?: Yes VTE Risk Level:: Medical - moderate - high VTE Device Contraindication: Treatment Not Indicated VTE Drug Contraindication: N/A - Med Ordered
--- NOTE | 2023-12-29 10:07 | PC.NURSE ---
Assumed care for pt @7am. Pt drinks minimum 10-12 drinks a day. Primarily lives alone in a second floor apartment. Per previous RN pt began showing signs of withdrawal around 3am. Next CIWA done at 8am pt CIWA was 15. PO ativan given. Pt reports history of w/d seizures in the past. Remains on continuous virtual monitoring. Plan is for pt to be brought back over to the main ER for closer observation and monitoring.
[2023-12-29] MEDS: cefuroxime axetiL 500 MG TABLET PO ×2 (10:15→21:51)
[2023-12-29] MEDS: PHENobarbitaL sodium 130 MG/ML IM ONCE 227 MG IM (10:15)
[2023-12-29] MEDS: Doxycycline Monohydrate 100 MG CAPSULE PO ×2 (10:15→21:52)
--- NOTE | 2023-12-29 11:07 | PHA.MEDREC ---
Pharmacy Consult ? Medication Reconciliation Pharmacy has completed the medication reconciliation. Confirmed medications with patient. Patient was nodding in and out while getting questioned, but he was able to confirm his Eliquis 5mg tab, and Suboxone 8-2mg film and he last took them this AM
[2023-12-29] MEDS: Magnesium Sulfate/H2O 2 GM/50 ML PIGGYBACK IV ×2 (11:17→18:22)
[2023-12-29] MEDS: Lactated Ringers 1,000 ML 100 ML IVCONT ×2 (11:17→21:46)
[2023-12-29] MEDS: PHENobarbitaL sodium 130 MG/ML VIAL IM Q3Hx2 170 MG IM ×2 (12:25→15:57)
--- NOTE | 2023-12-29 13:40 | MHC.CLN ---
RE: CONSULT PT IS MODERATELY MALNOURISHED -TRIGGERS FOR NON-SEVERE MALNUTRITION IN THE CONTEXT OF SOCIAL/BEHAVIORAL AND ENVIRONMENTAL PT WITH MILDLY DEPLETED SUBCUTANEOUS FAT AND MUSCLE MASS WITH 17% SIGNIFICANT WT LOSS X 6 MONTHS AND POOR PO X 2 WEEKS AND PT REPORTS CONSUMING 10-20 BEERS PER DAY SEE PREVIOUS NUTRITION ASSESSMENT DATED 12/17/23-FAMILIAR WITH PT DIET RX: REGULAR DIET WITH 1800ML FLUID RESTRICTION-RECOMMEND 2GM NA DIET R/T HX CKD PT RECEIVING ENSURE TID TO PROVIDE 1050KCALS, 60G PROTEIN MONITOR PO INTAKE AND ENCOURAGE SUPPLEMENTS FULL ASSESSMENT TO FOLLOW
--- NOTE | 2023-12-29 13:51 | PC.NURSE ---
informed MD Puckett of pts BP 157/107 - diastolic out of perameters for phenobarbital, pt remains tachycardic in the 140s
--- NOTE | 2023-12-29 15:27 | MHC.EDTECH ---
assited RN with cleaning pt after he pulled his tex[place] catheter off, changed sheets and replaced tex[place] cath with a new one. Pt tolerated well
--- NOTE | 2023-12-29 15:55 | PC.NURSE ---
pt irritable at replacement of [place] cath and linen change as he has to go downstairs pt reports that his PCP wants to see him and he has to go, reports he has an appointment at 1400, educated pt that it was 1530 and he would have missed the appointment. pt currently resting wtih eyes closed, RR even, unlabored. contacted MD Puckett r/t DBP 103 and out of phenobarbital protocol - per ok to give
--- NOTE | 2023-12-29 17:43 | PC.NURSE ---
Addendum entered by Stephanie Breen RN 12/29/23 18:29: EKG completed as ordered see reports for details, ST. states pt can stay on medical floor with tele monitoring at this time. 500ml fluid bolus ordered and 2g mag ordered, IVF infusing per MAR. Original Note: Pt arrived to unit from ED alert to self only, drowsy but opens eyes to voice. Pt scoring 10 on ciwa, pt currently hallucinating and agitated, pt states he is trying to get beer from the fridge . Pt trying to pull IV out and requiring frequent redirection. HR sustaining in 140s, BP elevated MD Puckett made aware. Per MD obtain STAT EKG for tachycardia.
--- NOTE | 2023-12-29 17:48 | ECG_ITS ---
Test Reason : Tachycardia Blood Pressure : / mmHG Vent. Rate : 133 BPM Atrial Rate : 000 BPM P-R Int : 000 ms QRS Dur : 082 ms QT Int : 340 ms P-R-T Axes : 000 072 088 degrees QTc Int : 506 ms Supraventricular tachycardia Anteroseptal infarct , age undetermined Abnormal ECG No previous ECGs available Referred By: Osmin Rhodes Electronically Signed By:Erwin Lozoya
[2023-12-29] MEDS: 0.9 % Sodium Chloride 500 ML IV (18:22)
--- NOTE | 2023-12-29 19:09 | HO.SKINPHOTO ---
Location: left arm skin tear, cleansed with NaCl, xeroform applied. Pt has hypopigmentation on coccyx and open area to right buttock foam dressing applied. Buttocks have multiple scared over areas. Pt has scattered scabs throughout bilateral lower extremities. Picture of buttocks will not upload to skin care note. Wound care nurse consulted. Foam dressings applied to bilateral heels for prevention.
--- NOTE | 2023-12-29 19:18 | HO.SKINPHOTO ---
Location: buttock Category: dti buttock and pressure rt buttock Stage: stage 2 rt buttock Length: Width: Depth: cm Location: Category: Stage: Length: Width: Depth: cm Location: Category: Stage: Length: Width: Depth: cm Location: Category: Stage: Length: Width: Depth: cm Location: Category: Stage: Length: Width: Depth: cm Location: Category: Stage: Length: Width: Depth: cm
[2023-12-29] MEDS: 0.9 % Sodium Chloride Flush 3 ML SYRINGE IVFLUSH (21:50)
[2023-12-29] MEDS: PHENobarbitaL 30 MG TABLET PO (21:51)
[2023-12-29] MEDS: Apixaban 5 MG TABLET PO (21:51)
[2023-12-29] MEDS: Hydroxychloroquine Sulfate 200 MG TABLET PO (21:52)
[2023-12-30] VITALS (7 sets, daily range): BP systolic 112–153; BP diastolic 74–96; PULSE 108–150; RESP 18–20; TEMP 36.5–37; O2SAT 93–97; BMI 14.1
--- NOTE | 2023-12-30 | ECG_ITS ---
Test Reason : Tachycardia Blood Pressure : / mmHG Vent. Rate : 135 BPM Atrial Rate : 000 BPM P-R Int : 000 ms QRS Dur : 082 ms QT Int : 334 ms P-R-T Axes : 000 062 086 degrees QTc Int : 501 ms Supraventricular tachycardia Anteroseptal infarct , age undetermined Abnormal ECG No previous ECGs available Referred By: Osmin Rhodes Electronically Signed By:Erwin Lozoya
--- NOTE | 2023-12-30 04:27 | MHC.PIE ---
p; p 120-130 while asleep. note; pt was tachy in ed in 130-140's, but he has been in the 100-120 during [id number]. i; dr gastelum notified. new order ECG now, labs - trop, lacti, d dimer and ect. new order metoprolol e; will cont to monitor
[2023-12-30] MEDS: Metoprolol Tartrate 25 MG TABLET PO ×2 (04:38→20:00)
[2023-12-30] MEDS: Lactated Ringers 1,000 ML 100 ML IVCONT ×2 (04:41→16:13)
[2023-12-30 06:32] LABS: Hematocrit 32.2 % (42.0-52.0); Hemoglobin 10.7 g/dl (14.0-18.0); Mean Corpuscular HGB Conc 33.2 g/dl (31.0-36.0); Mean Corpuscular Hemoglobin 27.6 pg (27.0-33.0); Mean Platelet Volume 10.1 fL (9.4-12.4); Platelet Count 181 X10*3/uL (160-400); Red Blood Count 3.88 X10*6/uL (4.60-5.80); Red Cell Distribution Width 18.6 % (11.0-16.0)
[2023-12-30 06:39] LABS: D Dimer High Sensitivity 530 NG/ML
[2023-12-30 06:52] LABS: Lactic Acid 1.4 mmol/L (0.5-2.0)
[2023-12-30 06:55] LABS: Troponin-I High Sensitivity 4.3 ng/L (<3.5-35.0)
--- NOTE | 2023-12-30 07:00 | CA_ITS ---
Transthoracic Echocardiogram Patient (Last, First, Middle): Yan Hooks J Gender: Male Date of : 1970 Age: 53 Procedure Date: 12/30/2023 Procedure Type: Transthoracic Echocardiogram Location: S3E Height: 182.88 cm Weight: 47.17 kg BSA: 1.61 m2 Heart Rate: bpm BP: 140 / 96 mmHg Flat Breakdown Processor: Referring MD: Osmin Rhodes MD Symptoms: Persistent tachycardia Study Quality: Technically Difficult due to pt compliant ECG Rhythm: Sinus Conclusions: - Limited echo. - Normal left ventricular size and systolic function. There is mildly increased left ventricular wall thickness. The visually estimated ejection fraction is between 55-60%. - Normal right ventricular cavity size and systolic function. - There is no evidence of pericardial effusion. Findings Left Ventricle Normal left ventricular size and systolic function. There is mildly increased left ventricular wall thickness. The visually estimated ejection fraction is between 55-60%. Right Ventricle Normal right ventricular cavity size and systolic function. Aortic Valve The aortic valve was not well visualized. Venous The inferior vena cava is normal in size and collapses greater than 50% with inspiration. Pericardium/Pleural Prominent epicardial adipose tissue noted. There is no evidence of pericardial effusion. Prior Study Comparison No significant change compared to prior study dated: 10/13/2023. Measurements 2D Linear Measurements IVSd: 1.15 0.6-0.9/0.6-1.0 cm LVIDd: 3.85 3.9-5.3/4.2-5.9 cm LVIDd Index: 2.39 2.4-3.2/2.2-3.1 cm/m2 LVIDs: 2.50 2.0-3.6 cm LVPWd: 1.17 0.7-1.1 cm LV Mass: 184.93 67-162/88-224 g LV Mass Index: 114.86 43-95/49-115 g/m2 2D Systolic Function EF 4C: 62.90 >55% Tricuspid Valve TR Pk Felipe: 1.98 TR Pk Grad: 16.00 Updated in Other Vendor System with Status of Final Erwin Lozoya MD electronically signed on 12/30/2023 12:30:31 PM with status of Final
[2023-12-30 07:30] LABS: Alanine Aminotransferase 23 U/L (0-40); Albumin Level 2.2 g/dL (3.5-5.0); Alkaline Phosphatase 280 U/L (39-117); Anion Gap 15 (12-20); Aspartate Amino Transferase 34 U/L (5-37); Bilirubin Total 0.3 mg/dL (0.0-1.0); Blood Urea Nitrogen < 3 mg/dL (9-16); Calcium 7.9 mg/dL (8.4-10.2); Carbon Dioxide 24 mmol/L (22-29); Chloride 97 mmol/L (96-108); Creatinine Clr Calc Pharmacy 121.6; Estimated Glomerular Filt Rate > 60; Glucose Random 113 mg/dL (60-115); Magnesium 1.7 mg/dL (1.6-2.6); Sodium 133 mmol/L (135-145); Total Protein 7.1 g/dL (6.5-8.0)
[2023-12-30 07:36] LABS: Potassium 2.9 mmol/L (3.3-5.1)
[2023-12-30] MEDS: Potassium Chloride Packet 20 MEQ PACKET 40 MEQ PO ×2 (08:39→09:50)
[2023-12-30] MEDS: predniSONE 5 MG TABLET PO (08:40)
[2023-12-30] MEDS: PHENobarbitaL 30 MG TABLET PO ×2 (08:40→20:01)
[2023-12-30] MEDS: Nicotine 21 MG PATCH.TD24 TRANSDERMA (08:40)
[2023-12-30] MEDS: Apixaban 5 MG TABLET PO ×2 (08:40→20:01)
[2023-12-30] MEDS: Doxycycline Monohydrate 100 MG CAPSULE PO ×2 (08:40→20:00)
[2023-12-30] MEDS: Hydroxychloroquine Sulfate 200 MG TABLET PO ×2 (08:40→20:00)
[2023-12-30] MEDS: Thiamine HCL 100 MG TABLET PO (08:41)
[2023-12-30] MEDS: Buprenorphine/Naloxone 8/2 mg FILM 2 FILM SUBLINGUAL (08:41)
[2023-12-30] MEDS: Multivitamin TABLET 1 TAB PO (08:41)
[2023-12-30] MEDS: cefuroxime axetiL 500 MG TABLET PO ×2 (08:41→20:00)
[2023-12-30] MEDS: Magnesium Oxide 400 MG TABLET PO (08:42)
--- NOTE | 2023-12-30 10:44 | MHC.CLN ---
NUTRITION CLINICAL NUTRITION ASSESSMENT COMPLETED 12/29. DIET=REGULAR WITH 1800 ML FLUID RESTRICTION. OK FOR REGULAR DIET TO PROMOTE PO INTAKE. ENSURE TID PROVIDES 1050 KCALS, 60 G PROTEIN. SKIN WITH STAGE II PRESSURE INJURY TO RIGHT BUTTOCK AND DTI TO BUTTOCK. QUALIFIES MODERATELY MALNOURISHED IN THE CONTEXT OF SOCIAL/BEHAVIORAL CIRCUMSTANCES. SUPPLEMENT APPROPRIATE TO PROMOTE WOUND HEALING AND PROVIDE ADDITIONAL NUTRITION/CALORIES. FOLLOW FOR PO INTAKE, WEIGHT AND WOUND HEALING.
--- NOTE | 2023-12-30 11:15 | MHC.CM.PN ---
PT UNABLE TO PARTICIPATE IN ASSESSMENT CM ATTEMPTED TO CONTACT HIS SISTER/HCP, KATHERYN [phone], CALL WENT DIRECTLY TO HER V WHICH HAS NOT BEEN SET UP TO RECEIVE MESSAGES CM ATTEMPTED TO CONTACT PTS FRIEND, JANUSZ [phone], NO ANSWER CM WILL ATTEMPT TO REACH PTS CONTACTS AGAIN AT A LATER TIME PER PTS LAST ADMISSION(12/16/33), HE LIVES WITH HIS FRIEND JANUSZ, WHO ASSISTS HIM WITH CARE PRN HE HAS A WALKER HE ALSO USES NEEDED HCP ON FILE PCP: TORRES SHIELDS DCP TBD PENDING PT SUNNI
--- NOTE | 2023-12-30 11:50 | HO.PM.IMPN ---
Subjective Subjective Date of Service: 12/30/23 Interval History: more alert and interactive confused about time and person no reported seizures still scoring >10 on CIWA trying to get off the bed Review of Systems Review of Systems: Yes all other systems are reviewed and are negative Physical Exam Vital Signs: Vital Signs: Last Vital Signs Temp 98.1 F 12/30/23 06:59 Pulse 114 H 12/30/23 06:59 Resp 20 12/30/23 06:59 BP 140/96 H 12/30/23 06:59 Pulse Ox 93 12/30/23 06:59 O2 Del Method Room Air 12/30/23 06:59 BMI result Body Mass Index 14.1 Const: Other: Constitutional : Awake, tremelous, not distressed Neck : Normal inspection, Supple Cardiovascular : RRR, no JVP, no lower extremity edema Respiratory : good bilateral air entry, RLL fine crackles, no wheezes or rhonchi Gastrointestinal: soft, lax, Normal bowel sounds, Non tender Skin : Warm, Dry Neurological : Alert & oriented to self only, No focal deficit Objective Data Active Medications Acetaminophen (Acetaminophen 325 Mg Tablet) 650 mg PO Q6H PRN PRN Reason: Pain, Mild (Pain Scale 1-3), fever or headache Apixaban (Apixaban 5 Mg Tablet) 5 mg PO BID [facility] Last Admin: 12/30/23 08:40 Dose: 5 mg Documented By: CARLA Benzonatate (Benzonatate 100 Mg Capsule) 100 mg PO TID PRN PRN Reason: Cough Buprenorphine/Naloxone (Buprenorphine/Naloxone 8/2 Mg Film) 2 film SUBLINGUAL DAILY [facility] Last Admin: 12/30/23 08:41 Dose: 2 film Documented By: CARLA Calcium Carbonate (Calcium Carbonate 750 Mg Tab.Chew) 750 mg PO Q4H PRN PRN Reason: Heartburn Cefuroxime Axetil (Cefuroxime Axetil 500 Mg Tablet) 500 mg PO BID [facility] Last Admin: 12/30/23 08:41 Dose: 500 mg Documented By: CARLA Doxycycline Monohydrate (Doxycycline Monohydrate 100 Mg Capsule) 100 mg PO BID [facility] Stop: 01/05/24 08:59 Last Admin: 12/30/23 08:40 Dose: 100 mg Documented By: CARLA Hydroxychloroquine Sulfate (Hydroxychloroquine Sulfate 200 Mg Tablet) 200 mg PO BID [facility] Last Admin: 12/30/23 08:40 Dose: 200 mg Documented By: CARLA Lactated Ringer's (Lr) 1,000 mls @ 100 mls/hr IVCONT .Q10H [facility] Last Admin: 12/30/23 04:41 Dose: 100 mls/hr Documented By: PETTY Magnesium Hydroxide (Milk Of Magnesia 30 Ml Oral.Susp) 30 ml PO DAILY PRN PRN Reason: Constipation Magnesium Oxide (Magnesium Oxide 400 Mg Tablet) 400 mg PO DAILY [facility] Last Admin: 12/30/23 08:42 Dose: 400 mg Documented By: CARLA Melatonin (Melatonin 3 Mg Tablet) 6 mg PO BEDTIME PRN PRN Reason: Insomnia Metoprolol Tartrate (Metoprolol Tartrate 25 Mg Tablet) 25 mg PO BID [facility]; Protocol Last Admin: 12/30/23 04:38 Dose: 25 mg Documented By: PETTY Multivitamins/Vitamin C (Multivitamin Tablet) 1 tab PO DAILY [facility] Last Admin: 12/30/23 08:41 Dose: 1 tab Documented By: CARLA Nicotine (Nicotine 21 Mg Patch.Td24) 21 mg TRANSDERMA DAILY [facility] Last Admin: 12/30/23 08:40 Dose: 21 mg Documented By: CARLA Ondansetron HCl (Ondansetron Hcl 4 Mg/2 Ml Vial) 4 mg IVPUSH Q8H PRN PRN Reason: Nausea and Vomiting Pharmacy Consult (Consult Rx Etoh Phenob Im/Po) 1 each MISCELLANE ONCE PRN; Protocol PRN Reason: Consult order Phenobarbital (Phenobarbital 30 Mg Tablet) 30 mg PO BID [facility]; Protocol Stop: 12/31/23 09:01 Last Admin: 12/30/23 08:40 Dose: 30 mg Documented By: CARLA Phenobarbital (Phenobarbital 15 Mg Tablet) 15 mg PO BID [facility]; Protocol Stop: 01/02/24 09:01 Phenobarbital (Phenobarbital 15 Mg Tablet) 15 mg PO BEDTIME [facility]; Protocol Stop: 01/03/24 21:01 Phenobarbital Sodium (Phenobarbital Sodium 130 Mg/Ml Vial) 130 mg IM ONCE PRN PRN Reason: Alcohol Withdrawal Prednisone (Prednisone 5 Mg Tablet) 5 mg PO DAILY [facility] Last Admin: 12/30/23 08:40 Dose: 5 mg Documented By: CARLA Sodium Chloride (0.9 % Sodium Chloride Flush 3 Ml Syringe) 3 ml IVFLUSH QSHIFT [facility] Last Admin: 12/30/23 08:43 Dose: Not Given Documented By: CARLA Non-Admin Reason: IV Running Thiamine HCl (Thiamine Hcl 100 Mg Tablet) 100 mg PO DAILY [facility] Last Admin: 12/30/23 08:41 Dose: 100 mg Documented By: CARLA Labs 12/30/23 06:22 12/30/23 06:05 Labs: Laboratory Results - last 24 hr 12/30/23 12/30/23 12/30/23 06:05 06:11 06:22 MCV 83.0 MCH 27.6 MCHC 33.2 RDW 18.6 H Plt Count 181 MPV 10.1 Absolute Nucleated RBC 0.000 Nucleated RBC % (auto) 0.0 D-Dimer High Sensitivty 530 Anion Gap 15 Estim Creat Clear Calc 121.6 Estimated GFR > 60 Random Glucose 113 Lactic Acid 1.4 Calcium 7.9 L Magnesium 1.7 Total Bilirubin 0.3 AST 34 ALT 23 Alkaline Phosphatase 280 H Troponin I High Sens 4.3 Total Protein 7.1 Albumin 2.2 L Assessment and Plan (1) Fall: Status: Acute (2) Alcohol dependence: Status: Acute (3) Adult failure to thrive: Status: Acute (4) Alcohol withdrawal: Status: Acute (5) Pneumonia: Status: Acute Plan A 53years old male with PMH of alcohol abuse, DVT on eliquis, falls, COPD, smoker among others who presents to the hospital after having a fall at home. Acute Alcohol withdrawal w hx alcohol abuse tachycardia improved Keep on CIWA addiction team consult Continue Phenobarbitol protocol Extra dose if needed continue IV fluids reorientation as needed Pneumonia No hypoxia, not septic PO Antibiotics of Doxycycline and Ceftin , started in ED 12/29/23 Hypomagnesemia replacement and recheck Fall PT eval Hx DVT on Eliquis continue home meds Hx COPD not in exacerbation Continue home Meds chronic normocytic anemia, no acute blood loss noted Chronic Hyponatremia. mild, fluid restriction, monitor Na History of substance abuse. Continue Suboxone. Moderate-severe calorie protein malnutrition. adult failure to thrive. BMI lower at 14.1. add Ensure, Fleshing Machine Operator consult. Tobacco use disorder. advised to quit. nicotine patch. DVT PPx Eliquis the patient will likely need overnight hospital stay for treatment of alcohol withdrawal pending CIWA score improvement, PT evaluation . Quality Stroke Does the patient have a stroke diagnosis?: No VTE Prior VTE?: Yes VTE Risk Level:: Medical - moderate - high VTE Device Contraindication: Treatment Not Indicated VTE Drug Contraindication: N/A - Med Ordered
--- NOTE | 2023-12-30 15:10 | HO.WOUND ---
Wound Consult: Initial 53yr old?[place] [facility] - See progress notes and H&P for detailed history.? Wound consult placed for Coccyx.? Patient agreeable to assessment and photo documentation.? Patient sitting in recliner chair recommend adding waffle cushion to chair for off loading. Coccyx picture chart review Coccyx Etiology: ?Unstageable Pressure Injury ?Present on Admission Measurements: two open wound beds - 1cm x 3cm x 0.1cm Wound Bed: yellow slough adherent to bed Drainage / Odor: Galdamez drainage noted on foam dressing Edges: ? irregular and dry peeling tissue Manda wound: evidence of previous injury several scar tissue noted all healed at this time - poor historian not able to recall what scarring is from - MASD noted - No Induration, Fluctuance or Warmth noted Pain: reports tenderness and pain Goals of Treatment: ? Waffle cushion when up to chair and foam and triad applied Left forearm skin tear noted - clean wound bed no s/s of infection at this time. Recommend xeroform and gauze wrap to be applied. Recommendations: 1. Turn and Reposition every 2 hours and as needed for patient comfort.? Use pillows or wedges to support off loading positions. 2. Off Load all bony prominences with use of pillows and heel boots if needed.? Apply Preventative foams where needed. ? 3. Monitor for incontinence and moisture control, use barrier creams when needed for prevention and treatment. 4. Provide adequate and supplemental nutrition.? 5. Order or Continue low air loss mattress. 6. When applicable maintain blood glucose levels per Providers order. 7. Coccyx - Cleanse with PH balance spray or wipes, pat dry. ?Apply thin layer of Triad to wound bed. Do not remove all of paste between applications as this may cause further skin damage.? Cover with foam dressing to aid in off loading and protection from friction. Waffle Cushion when up to chair. 8. Left arm Skin tear - cleanse with Ns moist gauze, apply xeroform cover with ABD pad gauze wrap, change daily. Re-consult wound care Nurse for wound deterioration or wound changes.
[2023-12-30] MEDS: 0.9 % Sodium Chloride Flush 3 ML SYRINGE IVFLUSH (16:08)
[2023-12-30] MEDS: Potassium Chloride ER 20 MEQ TAB.ER.PRT 40 MEQ PO (16:08)
[2023-12-30] MEDS: Acetaminophen 325 MG TABLET 650 MG PO (20:10)
[2023-12-30] MEDS: Melatonin 3 MG TABLET 6 MG PO (20:10)
[2023-12-31] VITALS (7 sets, daily range): BP systolic 123–139; BP diastolic 79–87; PULSE 80–114; RESP 12–18; TEMP 36.3–37.1; O2SAT 92–98
[2023-12-31] MEDS: Lactated Ringers 1,000 ML 100 ML IVCONT (01:48)
[2023-12-31 06:14] LABS: Hematocrit 27.2 % (42.0-52.0); Hemoglobin 9.1 g/dl (14.0-18.0); Mean Corpuscular HGB Conc 33.5 g/dl (31.0-36.0); Mean Corpuscular Volume 83.7 fL (80.0-98.0); Mean Platelet Volume 10.5 fL (9.4-12.4); Platelet Count 164 X10*3/uL (160-400); Red Blood Count 3.25 X10*6/uL (4.60-5.80); Red Cell Distribution Width 18.7 % (11.0-16.0); White Blood Count 9.3 X10*3/uL (4.8-10.8)
[2023-12-31 06:30] LABS: Anion Gap 8 (12-20); Blood Urea Nitrogen 4 mg/dL (9-16); Calcium 7.9 mg/dL (8.4-10.2); Carbon Dioxide 26 mmol/L (22-29); Chloride 100 mmol/L (96-108); Creatinine Clr Calc Pharmacy 114.3; Estimated Glomerular Filt Rate > 60; Glucose Random 99 mg/dL (60-115); Sodium 130 mmol/L (135-145)
[2023-12-31] MEDS: Hydroxychloroquine Sulfate 200 MG TABLET PO ×2 (09:30→19:33)
[2023-12-31] MEDS: Apixaban 5 MG TABLET PO ×2 (09:30→19:33)
[2023-12-31] MEDS: Multivitamin TABLET 1 TAB PO (09:30)
[2023-12-31] MEDS: PHENobarbitaL 30 MG TABLET PO (09:30)
[2023-12-31] MEDS: Thiamine HCL 100 MG TABLET PO (09:31)
[2023-12-31] MEDS: predniSONE 5 MG TABLET PO (09:31)
[2023-12-31] MEDS: Nicotine 21 MG PATCH.TD24 TRANSDERMA (09:31)
[2023-12-31] MEDS: Doxycycline Monohydrate 100 MG CAPSULE PO ×2 (09:31→19:33)
[2023-12-31] MEDS: Metoprolol Tartrate 25 MG TABLET PO ×2 (09:31→19:33)
[2023-12-31] MEDS: Buprenorphine/Naloxone 8/2 mg FILM 2 FILM SUBLINGUAL (09:31)
--- NOTE | 2023-12-31 11:12 | MHC.CM.PN ---
Per MD rounds DC likely tomorrow. A call was received from [facility] Nurse Navigator. She plans to meet with the patient today. Addiction Medicine consult is anticipated today. CM will continue to follow. DP Home with community resource info provided by the Recovery Nurse. PT rec STR. A referral has been sent to [facility]. Patient is prescribed Suboxone. He has stated that he will not go for STR per report from staff. CM will continue to follow to address discharge needs.
--- NOTE | 2023-12-31 12:58 | MHC.RECOVRN ---
Met with pt in 387 after consult placed to Addiction Medicine for alcohol use. Pt had presented to the ED after a fall due to generalized weakness as well as alcohol use. Upon evaluation, pt admitted for alcohol dependence, fall, pneumonia. Pt laying in bed, asleep, wakes to voice. Pt very sleepy and difficult to engage in conversation, keeps eyes closed throughout conversation. Pt reports alcohol use, at least 12 beers daily x years. Denies other substances. Pt currently on Suboxone x 13 years. Pt reports last opiate use 13 or 14 years ago. Pt reports hx ATS, unsure how many times, states I'll never go again. Attempted to discuss recovery resources and supports, pt requesting to leave resources at the bedside. Also provided t/w contact information if pt would like to speak further. Pt denies questions or concerns for t/w.
--- NOTE | 2023-12-31 13:04 | P.PNIM_ITS ---
Subjective Subjective Date of Service: 12/31/23 Interval History: more alert and interactive no reported seizures still scoring on CIWA no reported overnight events wants to get up and walk Review of Systems Review of Systems: Yes all other systems are reviewed and are negative Physical Exam 2 Vital Signs: Vital Signs: Last Vital Signs Temp 97.4 F 12/31/23 09:35 Pulse 92 12/31/23 09:35 Resp 14 12/31/23 09:35 BP 134/87 12/31/23 09:35 Pulse Ox 97 12/31/23 09:35 O2 Del Method Room Air 12/31/23 09:35 BMI result Body Mass Index 14.1 Const: Other: Constitutional : Awake,less tremelous, not distressed Neck : Normal inspection, Supple Cardiovascular : RRR, no JVP, no lower extremity edema Respiratory : good bilateral air entry, RLL fine crackles, no wheezes or rhonchi Gastrointestinal: soft, lax, Normal bowel sounds, Non tender Skin : Warm, Dry Neurological : Alert & oriented to self and place, No focal deficit Objective Data Active Medications Acetaminophen (Acetaminophen 325 Mg Tablet) 650 mg PO Q6H PRN PRN Reason: Pain, Mild (Pain Scale 1-3), fever or headache Last Admin: 12/30/23 20:10 Dose: 650 mg Documented By: BABAK Apixaban (Apixaban 5 Mg Tablet) 5 mg PO BID [facility] Last Admin: 12/31/23 09:30 Dose: 5 mg Documented By: JASMIN Benzonatate (Benzonatate 100 Mg Capsule) 100 mg PO TID PRN PRN Reason: Cough Buprenorphine/Naloxone (Buprenorphine/Naloxone 8/2 Mg Film) 2 film SUBLINGUAL DAILY [facility] Last Admin: 12/31/23 09:31 Dose: 2 film Documented By: JASMIN Calcium Carbonate (Calcium Carbonate 750 Mg Tab.Chew) 750 mg PO Q4H PRN PRN Reason: Heartburn Cefuroxime Axetil (Cefuroxime Axetil 500 Mg Tablet) 500 mg PO BID [facility] Last Admin: 12/31/23 12:02 Dose: Not Given Documented By: JASMIN Non-Admin Reason: Patient Refused Doxycycline Monohydrate (Doxycycline Monohydrate 100 Mg Capsule) 100 mg PO BID [facility] Stop: 01/05/24 08:59 Last Admin: 12/31/23 09:31 Dose: 100 mg Documented By: JASMIN Hydroxychloroquine Sulfate (Hydroxychloroquine Sulfate 200 Mg Tablet) 200 mg PO BID [facility] Last Admin: 12/31/23 09:30 Dose: 200 mg Documented By: JASMIN Magnesium Hydroxide (Milk Of Magnesia 30 Ml Oral.Susp) 30 ml PO DAILY PRN PRN Reason: Constipation Magnesium Oxide (Magnesium Oxide 400 Mg Tablet) 400 mg PO DAILY [facility] Last Admin: 12/31/23 12:03 Dose: Not Given Documented By: JASMIN Non-Admin Reason: Patient Refused Melatonin (Melatonin 3 Mg Tablet) 6 mg PO BEDTIME PRN PRN Reason: Insomnia Last Admin: 12/30/23 20:10 Dose: 6 mg Documented By: BABAK Metoprolol Tartrate (Metoprolol Tartrate 25 Mg Tablet) 25 mg PO BID [facility]; Protocol Last Admin: 12/31/23 09:31 Dose: 25 mg Documented By: JASMIN Multivitamins/Vitamin C (Multivitamin Tablet) 1 tab PO DAILY [facility] Last Admin: 12/31/23 09:30 Dose: 1 tab Documented By: JASMIN Nicotine (Nicotine 21 Mg Patch.Td24) 21 mg TRANSDERMA DAILY [facility] Last Admin: 12/31/23 09:31 Dose: 21 mg Documented By: JASMIN Ondansetron HCl (Ondansetron Hcl 4 Mg/2 Ml Vial) 4 mg IVPUSH Q8H PRN PRN Reason: Nausea and Vomiting Pharmacy Consult (Consult Rx Etoh Phenob Im/Po) 1 each MISCELLANE ONCE PRN; Protocol PRN Reason: Consult order Phenobarbital (Phenobarbital 15 Mg Tablet) 15 mg PO BID [facility]; Protocol Stop: 01/02/24 09:01 Phenobarbital (Phenobarbital 15 Mg Tablet) 15 mg PO BEDTIME [facility]; Protocol Stop: 01/03/24 21:01 Phenobarbital Sodium (Phenobarbital Sodium 130 Mg/Ml Vial) 130 mg IM ONCE PRN PRN Reason: Alcohol Withdrawal Prednisone (Prednisone 5 Mg Tablet) 5 mg PO DAILY [facility] Last Admin: 12/31/23 09:31 Dose: 5 mg Documented By: JASMIN Sodium Chloride (0.9 % Sodium Chloride Flush 3 Ml Syringe) 3 ml IVFLUSH QSHIFT [facility] Last Admin: 12/31/23 07:25 Dose: Not Given Documented By: JASMIN Non-Admin Reason: IV Running Thiamine HCl (Thiamine Hcl 100 Mg Tablet) 100 mg PO DAILY [facility] Last Admin: 12/31/23 09:31 Dose: 100 mg Documented By: JASMIN Labs 12/31/23 05:34 12/31/23 05:34 Labs: Laboratory Results - last 24 hr 12/31/23 05:34 MCV 83.7 MCH 28.0 MCHC 33.5 RDW 18.7 H Plt Count 164 MPV 10.5 Absolute Nucleated RBC 0.000 Nucleated RBC % (auto) 0.0 Anion Gap 8 L Estim Creat Clear Calc 114.3 Estimated GFR > 60 Random Glucose 99 Calcium 7.9 L Assessment and Plan (1) Fall: Status: Acute (2) Alcohol dependence: Status: Acute (3) Adult failure to thrive: Status: Acute Plan A 53years old male with PMH of alcohol abuse, DVT on eliquis, falls, COPD, smoker among others who presents to the hospital after having a fall at home. Acute Alcohol withdrawal w hx alcohol abuse better controlled Keep on CIWA addiction team consult Continue Phenobarbitol protocol Extra dose if needed dc IV fluids reorientation as needed Pneumonia No hypoxia, not septic PO Antibiotics of Doxycycline and Ceftin , started in ED 12/29/23 Hypomagnesemia replacement and recheck Fall PT eval rec STR Hx DVT on Eliquis continue home meds Hx COPD not in exacerbation Continue home Meds chronic normocytic anemia, no acute blood loss noted Chronic Hyponatremia. mild, fluid restriction, monitor Na History of substance abuse. Continue Suboxone. Moderate-severe calorie protein malnutrition. adult failure to thrive. BMI lower at 14.1. add Ensure, Registered Dental Assistant Rda consult. Tobacco use disorder. advised to quit. nicotine patch. DVT PPx Eliquis the patient will likely need overnight hospital stay for treatment of alcohol withdrawal pending CIWA score improvement, SNF placement Quality Stroke Does the patient have a stroke diagnosis?: No VTE Prior VTE?: Yes VTE Risk Level:: Medical - moderate - high VTE Device Contraindication: Treatment Not Indicated VTE Drug Contraindication: N/A - Med Ordered
[2023-12-31] MEDS: PHENobarbitaL sodium 130 MG/ML VIAL IM (18:59)
[2023-12-31] MEDS: PHENobarbitaL 15 MG TABLET PO (19:33)
[2024-01-01] MEDS: 0.9 % Sodium Chloride Flush 3 ML SYRINGE IVFLUSH ×3 (00:11→19:59)
[2024-01-01 03:06] VITALS: BP 139/92; PULSE 76; RESP 16; TEMP 36.5; O2SAT 97
[2024-01-01 06:25] LABS: Anion Gap 12 (12-20); Blood Urea Nitrogen 5 mg/dL (9-16); Calcium 7.8 mg/dL (8.4-10.2); Carbon Dioxide 18 mmol/L (22-29); Chloride 101 mmol/L (96-108); Creatinine Clr Calc Pharmacy 129.8; Estimated Glomerular Filt Rate > 60; Glucose Random 85 mg/dL (60-115); Potassium 3.2 mmol/L (3.3-5.1); Sodium 128 mmol/L (135-145)
[2024-01-01 07:26] VITALS: BP 165/95; PULSE 87; RESP 18; TEMP 36.5; O2SAT 95
[2024-01-01 08:55] VITALS: BP 118/68; PULSE 92
[2024-01-01] MEDS: Multivitamin TABLET 1 TAB PO (08:55)
[2024-01-01] MEDS: Metoprolol Tartrate 25 MG TABLET PO ×2 (08:55→19:58)
[2024-01-01] MEDS: Apixaban 5 MG TABLET PO ×2 (08:55→19:59)
[2024-01-01] MEDS: Thiamine HCL 100 MG TABLET PO (08:55)
[2024-01-01] MEDS: Potassium Chloride ER 20 MEQ TAB.ER.PRT 40 MEQ PO (08:55)
[2024-01-01] MEDS: cefuroxime axetiL 500 MG TABLET PO ×2 (08:55→19:58)
[2024-01-01] MEDS: Buprenorphine/Naloxone 8/2 mg FILM 2 FILM SUBLINGUAL (08:55)
[2024-01-01] MEDS: Doxycycline Monohydrate 100 MG CAPSULE PO ×2 (08:55→19:59)
[2024-01-01] MEDS: Hydroxychloroquine Sulfate 200 MG TABLET PO ×2 (08:58→19:58)
[2024-01-01] MEDS: PHENobarbitaL 15 MG TABLET PO ×2 (08:58→19:58)
[2024-01-01] MEDS: predniSONE 5 MG TABLET PO (08:58)
[2024-01-01] MEDS: Magnesium Oxide 400 MG TABLET PO (08:58)
[2024-01-01] MEDS: Nicotine 21 MG PATCH.TD24 TRANSDERMA (08:59)
--- NOTE | 2024-01-01 11:36 | MHC.CLN ---
F/U DIET=REGULAR WITH 1200 ML FLUID RESTRICTION. RBHCPR=195 ON 12/31. ENSURE TID PROVIDES 1050 KCALS, 60 G PROTEIN. SEEN BY WOUND RN 12/29. SKIN WITH UNSTAGEABLE ARREA TO COCCYX WITH 2 OPEN WOUND BEDS. INTAKE VARIABLE, 25-100%. SUPPLEMENT APPROPRIATE TO PROMOTE WOUND HEALING AND PROVIDE ADDITIONAL NUTRITION/CALORIES. IF CONSUMED 100%, [facility] TID PROVIDES APPROX 650 ML FREE WATER. FOLLOW FOR PO INTAKE, WEIGHT AND WOUND HEALING.
[2024-01-01 12:59] VITALS: BP 118/68; PULSE 92
[2024-01-01 13:33] LABS: Blood Urea Nitrogen 6 mg/dL (9-16); Calcium 7.9 mg/dL (8.4-10.2); Estimated Glomerular Filt Rate > 60; Glucose Random 108 mg/dL (60-115)
--- NOTE | 2024-01-01 13:48 | P.PNIM_ITS ---
Subjective Subjective Date of Service: 01/01/24 Interval History: more alert and interactive no reported seizures not scoring on CIWA no reported overnight events feeling weak, waiting placement at [facility] Review of Systems reporting weakness No chest pain, palpitation No shortness of breath or coughing No abdominal pain, nausea or vomiting No urinary symptoms abrasions Physical Exam 2 Vital Signs: Vital Signs: Last Vital Signs Temp 97.7 F 01/01/24 07:26 Pulse 92 01/01/24 08:55 Resp 18 01/01/24 07:26 BP 118/68 01/01/24 08:55 Pulse Ox 95 01/01/24 07:26 O2 Del Method Room Air 01/01/24 07:26 BMI result Body Mass Index 14.1 Const: Other: Constitutional : Awake, not distressed Neck : Normal inspection, Supple Cardiovascular : RRR, no JVP, no lower extremity edema Respiratory : good bilateral air entry, RLL fine crackles, no wheezes or rhonchi Gastrointestinal: soft, lax, Normal bowel sounds, Non tender Skin : Warm, Dry, multiple areas of bruises and abrasions Neurological : Alert & oriented to self and place, No focal deficit Objective Data Active Medications Acetaminophen (Acetaminophen 325 Mg Tablet) 650 mg PO Q6H PRN PRN Reason: Pain, Mild (Pain Scale 1-3), fever or headache Last Admin: 12/30/23 20:10 Dose: 650 mg Documented By: BABAK Apixaban (Apixaban 5 Mg Tablet) 5 mg PO BID [facility] Last Admin: 01/01/24 08:55 Dose: 5 mg Documented By: YAYA Benzonatate (Benzonatate 100 Mg Capsule) 100 mg PO TID PRN PRN Reason: Cough Buprenorphine/Naloxone (Buprenorphine/Naloxone 8/2 Mg Film) 2 film SUBLINGUAL DAILY [facility] Last Admin: 01/01/24 08:55 Dose: 2 film Documented By: YAYA Calcium Carbonate (Calcium Carbonate 750 Mg Tab.Chew) 750 mg PO Q4H PRN PRN Reason: Heartburn Cefuroxime Axetil (Cefuroxime Axetil 500 Mg Tablet) 500 mg PO BID [facility] Last Admin: 01/01/24 08:55 Dose: 500 mg Documented By: YAYA Doxycycline Monohydrate (Doxycycline Monohydrate 100 Mg Capsule) 100 mg PO BID [facility] Stop: 01/05/24 08:59 Last Admin: 01/01/24 08:55 Dose: 100 mg Documented By: YAYA Hydroxychloroquine Sulfate (Hydroxychloroquine Sulfate 200 Mg Tablet) 200 mg PO BID [facility] Last Admin: 01/01/24 08:58 Dose: 200 mg Documented By: YAYA Magnesium Hydroxide (Milk Of Magnesia 30 Ml Oral.Susp) 30 ml PO DAILY PRN PRN Reason: Constipation Magnesium Oxide (Magnesium Oxide 400 Mg Tablet) 400 mg PO DAILY [facility] Last Admin: 01/01/24 08:58 Dose: 400 mg Documented By: YAYA Melatonin (Melatonin 3 Mg Tablet) 6 mg PO BEDTIME PRN PRN Reason: Insomnia Last Admin: 12/30/23 20:10 Dose: 6 mg Documented By: BABAK Metoprolol Tartrate (Metoprolol Tartrate 25 Mg Tablet) 25 mg PO BID [facility]; Protocol Last Admin: 01/01/24 08:55 Dose: 25 mg Documented By: YAYA Multivitamins/Vitamin C (Multivitamin Tablet) 1 tab PO DAILY [facility] Last Admin: 01/01/24 08:55 Dose: 1 tab Documented By: YAYA Nicotine (Nicotine 21 Mg Patch.Td24) 21 mg TRANSDERMA DAILY [facility] Last Admin: 01/01/24 08:59 Dose: 21 mg Documented By: YAYA Ondansetron HCl (Ondansetron Hcl 4 Mg/2 Ml Vial) 4 mg IVPUSH Q8H PRN PRN Reason: Nausea and Vomiting Pharmacy Consult (Consult Rx Etoh Phenob Im/Po) 1 each MISCELLANE ONCE PRN; Protocol PRN Reason: Consult order Phenobarbital (Phenobarbital 15 Mg Tablet) 15 mg PO BID [facility]; Protocol Stop: 01/02/24 09:01 Last Admin: 01/01/24 08:58 Dose: 15 mg Documented By: YAYA Phenobarbital (Phenobarbital 15 Mg Tablet) 15 mg PO BEDTIME [facility]; Protocol Stop: 01/03/24 21:01 Phenobarbital Sodium (Phenobarbital Sodium 130 Mg/Ml Vial) 130 mg IM ONCE PRN PRN Reason: Alcohol Withdrawal Last Admin: 12/31/23 18:59 Dose: 130 mg Documented By: JASMIN Prednisone (Prednisone 5 Mg Tablet) 5 mg PO DAILY [facility] Last Admin: 01/01/24 08:58 Dose: 5 mg Documented By: YAYA Sodium Chloride (0.9 % Sodium Chloride Flush 3 Ml Syringe) 3 ml IVFLUSH QSHIFT [facility] Last Admin: 01/01/24 08:59 Dose: 3 ml Documented By: YAYA Thiamine HCl (Thiamine Hcl 100 Mg Tablet) 100 mg PO DAILY [facility] Last Admin: 01/01/24 08:55 Dose: 100 mg Documented By: YAYA Labs 12/31/23 05:34 01/01/24 13:08 Labs: Laboratory Results - last 24 hr 01/01/24 01/01/24 05:54 13:08 Hold Purple Top SEE NOTE Anion Gap 12 Estim Creat Clear Calc 129.8 119.0 Estimated GFR > 60 > 60 Random Glucose 85 108 Calcium 7.8 L 7.9 L Assessment and Plan (1) Acute hypokalemia: Status: Acute (2) Acute hyponatremia: Status: Acute (3) Fall: Status: Acute (4) Adult failure to thrive: Status: Acute (5) Alcohol dependence: Status: Acute Plan A 53years old male with PMH of alcohol abuse, DVT on eliquis, falls, COPD, smoker among others who presents to the hospital after having a fall at home. Acute Alcohol withdrawal w hx alcohol abuse better controlled on CIWA addiction team input appreciated Continue Phenobarbitol protocol Extra dose if needed dc IV fluids reorientation as needed Pneumonia No hypoxia, not septic PO Antibiotics of Doxycycline and Ceftin , started in ED 12/29/23 acute on Chronic Hyponatremia. mild Na 128, fluid restrictions follow BMP Acute hypokalemia replacement given, follow BMP acute Hypomagnesemia replaced Fall PT eval rec STR Hx DVT on Eliquis continue home meds Hx COPD not in exacerbation Continue home Meds chronic normocytic anemia, no acute blood loss noted Chronic Hyponatremia. mild, fluid restriction, monitor Na History of substance abuse. Continue Suboxone. Moderate-severe calorie protein malnutrition. adult failure to thrive. BMI lower at 14.1. add Ensure, Senior Network Administrator consult. Tobacco use disorder. advised to quit. nicotine patch. DVT PPx Eliquis the patient will likely need overnight hospital stay for treatment of alcohol withdrawal pending electrolytes imbalance correction and placement Quality Stroke Does the patient have a stroke diagnosis?: No VTE Prior VTE?: Yes VTE Risk Level:: Medical - moderate - high VTE Device Contraindication: Treatment Not Indicated VTE Drug Contraindication: N/A - Med Ordered
[2024-01-01 14:05] LABS: Anion Gap 9 (12-20); Carbon Dioxide 28 mmol/L (22-29); Chloride 99 mmol/L (96-108); Potassium 3.6 mmol/L (3.3-5.1); Sodium 132 mmol/L (135-145)
[2024-01-01 15:28] VITALS: BP 109/68; PULSE 74; RESP 18; TEMP 36.2; O2SAT 96
[2024-01-01 19:37] VITALS: BP 110/66; PULSE 87; RESP 18; TEMP 37.1; O2SAT 95
[2024-01-01] MEDS: Melatonin 3 MG TABLET 6 MG PO (23:19)
[2024-01-02] VITALS (7 sets, daily range): BP systolic 103–147; BP diastolic 70–88; PULSE 69–80; RESP 12–20; TEMP 36.1–36.8; O2SAT 94–98
[2024-01-02] MEDS: 0.9 % Sodium Chloride Flush 3 ML SYRINGE IVFLUSH ×3 (08:26→21:40)
[2024-01-02] MEDS: Thiamine HCL 100 MG TABLET PO (08:29)
[2024-01-02] MEDS: Apixaban 5 MG TABLET PO ×2 (08:29→21:40)
[2024-01-02] MEDS: Multivitamin TABLET 1 TAB PO (08:29)
[2024-01-02] MEDS: Doxycycline Monohydrate 100 MG CAPSULE PO ×2 (08:31→21:39)
[2024-01-02] MEDS: predniSONE 5 MG TABLET PO (08:31)
[2024-01-02] MEDS: Magnesium Oxide 400 MG TABLET PO (08:31)
[2024-01-02] MEDS: Metoprolol Tartrate 25 MG TABLET PO ×2 (08:31→21:39)
[2024-01-02] MEDS: Hydroxychloroquine Sulfate 200 MG TABLET PO ×2 (08:31→21:40)
[2024-01-02] MEDS: Nicotine 21 MG PATCH.TD24 TRANSDERMA (08:32)
[2024-01-02] MEDS: PHENobarbitaL 15 MG TABLET PO ×2 (08:32→21:39)
[2024-01-02] MEDS: Buprenorphine/Naloxone 8/2 mg FILM 2 FILM SUBLINGUAL (08:32)
[2024-01-02] MEDS: cefuroxime axetiL 500 MG TABLET PO ×2 (08:32→21:39)
--- NOTE | 2024-01-02 11:01 | HO.PM.IMPN ---
Subjective Subjective Date of Service: 01/02/24 Interval History: more alert and interactive needs 2 assist to get off the bed, not safe ambulating, poor balance not scoring on CIWA no reported overnight events feeling weak, waiting placement at [facility] Review of Systems Review of Systems: Yes all other systems are reviewed and are negative Physical Exam Vital Signs: Vital Signs: Last Vital Signs Temp 97.4 F 01/02/24 07:33 Pulse 76 01/02/24 08:31 Resp 12 01/02/24 07:33 BP 125/87 01/02/24 08:31 Pulse Ox 96 01/02/24 07:33 O2 Del Method Room Air 01/02/24 07:33 BMI result Body Mass Index 14.1 Const: Other: Constitutional : Awake, not distressed Neck : Normal inspection, Supple Cardiovascular : RRR, no JVP, no lower extremity edema Respiratory : good bilateral air entry, no crackles, no wheezes or rhonchi Gastrointestinal: soft, lax, Normal bowel sounds, Non tender Skin : Warm, Dry, multiple areas of bruises and abrasions Neurological : Alert & oriented to self and place, No focal deficit Objective Data Active Medications Acetaminophen (Acetaminophen 325 Mg Tablet) 650 mg PO Q6H PRN PRN Reason: Pain, Mild (Pain Scale 1-3), fever or headache Last Admin: 12/30/23 20:10 Dose: 650 mg Documented By: BABAK Apixaban (Apixaban 5 Mg Tablet) 5 mg PO BID [facility] Last Admin: 01/02/24 08:29 Dose: 5 mg Documented By: YAYA Benzonatate (Benzonatate 100 Mg Capsule) 100 mg PO TID PRN PRN Reason: Cough Buprenorphine/Naloxone (Buprenorphine/Naloxone 8/2 Mg Film) 2 film SUBLINGUAL DAILY [facility] Last Admin: 01/02/24 08:32 Dose: 2 film Documented By: YAYA Calcium Carbonate (Calcium Carbonate 750 Mg Tab.Chew) 750 mg PO Q4H PRN PRN Reason: Heartburn Cefuroxime Axetil (Cefuroxime Axetil 500 Mg Tablet) 500 mg PO BID [facility] Last Admin: 01/02/24 08:32 Dose: 500 mg Documented By: YAYA Doxycycline Monohydrate (Doxycycline Monohydrate 100 Mg Capsule) 100 mg PO BID [facility] Stop: 01/05/24 08:59 Last Admin: 01/02/24 08:31 Dose: 100 mg Documented By: YAYA Hydroxychloroquine Sulfate (Hydroxychloroquine Sulfate 200 Mg Tablet) 200 mg PO BID [facility] Last Admin: 01/02/24 08:31 Dose: 200 mg Documented By: YAYA Magnesium Hydroxide (Milk Of Magnesia 30 Ml Oral.Susp) 30 ml PO DAILY PRN PRN Reason: Constipation Magnesium Oxide (Magnesium Oxide 400 Mg Tablet) 400 mg PO DAILY [facility] Last Admin: 01/02/24 08:31 Dose: 400 mg Documented By: YAYA Melatonin (Melatonin 3 Mg Tablet) 6 mg PO BEDTIME PRN PRN Reason: Insomnia Last Admin: 01/01/24 23:19 Dose: 6 mg Documented By: BRODY Metoprolol Tartrate (Metoprolol Tartrate 25 Mg Tablet) 25 mg PO BID [facility]; Protocol Last Admin: 01/02/24 08:31 Dose: 25 mg Documented By: YAYA Multivitamins/Vitamin C (Multivitamin Tablet) 1 tab PO DAILY [facility] Last Admin: 01/02/24 08:29 Dose: 1 tab Documented By: YAYA Nicotine (Nicotine 21 Mg Patch.Td24) 21 mg TRANSDERMA DAILY [facility] Last Admin: 01/02/24 08:32 Dose: 21 mg Documented By: YAYA Ondansetron HCl (Ondansetron Hcl 4 Mg/2 Ml Vial) 4 mg IVPUSH Q8H PRN PRN Reason: Nausea and Vomiting Pharmacy Consult (Consult Rx Etoh Phenob Im/Po) 1 each MISCELLANE ONCE PRN; Protocol PRN Reason: Consult order Phenobarbital (Phenobarbital 15 Mg Tablet) 15 mg PO BEDTIME [facility]; Protocol Stop: 01/03/24 21:01 Phenobarbital Sodium (Phenobarbital Sodium 130 Mg/Ml Vial) 130 mg IM ONCE PRN PRN Reason: Alcohol Withdrawal Last Admin: 12/31/23 18:59 Dose: 130 mg Documented By: JASMIN Prednisone (Prednisone 5 Mg Tablet) 5 mg PO DAILY [facility] Last Admin: 01/02/24 08:31 Dose: 5 mg Documented By: YAYA Sodium Chloride (0.9 % Sodium Chloride Flush 3 Ml Syringe) 3 ml IVFLUSH QSHIFT [facility] Last Admin: 01/02/24 08:26 Dose: 3 ml Documented By: YAYA Thiamine HCl (Thiamine Hcl 100 Mg Tablet) 100 mg PO DAILY [facility] Last Admin: 01/02/24 08:29 Dose: 100 mg Documented By: YAYA Labs 12/31/23 05:34 01/01/24 13:08 Labs: Laboratory Results - last 24 hr 01/01/24 13:08 Anion Gap 9 L Estim Creat Clear Calc 119.0 Estimated GFR > 60 Random Glucose 108 Calcium 7.9 L Assessment and Plan (1) Alcohol dependence: Status: Acute (2) Adult failure to thrive: Status: Acute (3) Alcohol dependence: Status: Acute (4) Weakness: Status: Acute Plan A 53years old male with PMH of alcohol abuse, DVT on eliquis, falls, COPD, smoker among others who presents to the hospital after having a fall at home. Acute Alcohol withdrawal w hx alcohol abuse resolving, on CIWA addiction team input appreciated Continue Phenobarbitol protocol reorientation as needed Pneumonia PO Antibiotics of Doxycycline and Ceftin , started in ED 12/29/23 acute on Chronic Hyponatremia. mild Na 132, fluid restrictions follow BMP Acute hypokalemia replacement given, follow BMP acute Hypomagnesemia replaced Fall PT eval rec STR Hx DVT on Eliquis continue home meds Hx COPD not in exacerbation Continue home Meds chronic normocytic anemia, no acute blood loss noted Chronic Hyponatremia. mild, fluid restriction, monitor Na History of substance abuse. Continue Suboxone. Moderate-severe calorie protein malnutrition. adult failure to thrive. BMI lower at 14.1. add Ensure, Bulk Sausage Casing Tier Off consult. Tobacco use disorder. advised to quit. nicotine patch. DVT PPx Eliquis the patient will likely need overnight hospital stay for physical deconditioning pending improvement Quality Stroke Does the patient have a stroke diagnosis?: No VTE Prior VTE?: Yes VTE Risk Level:: Medical - moderate - high VTE Device Contraindication: Treatment Not Indicated VTE Drug Contraindication: N/A - Med Ordered
[2024-01-02] MEDS: Acetaminophen 325 MG TABLET 650 MG PO (12:35)
[2024-01-02] MEDS: Melatonin 3 MG TABLET 6 MG PO (21:39)
[2024-01-03] VITALS (8 sets, daily range): BP systolic 110–136; BP diastolic 63–86; PULSE 67–97; RESP 14–18; TEMP 36.2–36.7; O2SAT 95–99
[2024-01-03 06:18] LABS: Hematocrit 25.1 % (42.0-52.0); Hemoglobin 8.3 g/dl (14.0-18.0); Mean Corpuscular HGB Conc 33.1 g/dl (31.0-36.0); Mean Corpuscular Hemoglobin 27.6 pg (27.0-33.0); Mean Corpuscular Volume 83.4 fL (80.0-98.0); Mean Platelet Volume 11.1 fL (9.4-12.4); Platelet Count 203 X10*3/uL (160-400); Red Blood Count 3.01 X10*6/uL (4.60-5.80); Red Cell Distribution Width 17.9 % (11.0-16.0); White Blood Count 5.7 X10*3/uL (4.8-10.8)
[2024-01-03 06:36] LABS: Anion Gap 9 (12-20); Blood Urea Nitrogen 5 mg/dL (9-16); Calcium 7.5 mg/dL (8.4-10.2); Carbon Dioxide 24 mmol/L (22-29); Chloride 99 mmol/L (96-108); Creatinine Clr Calc Pharmacy 129.8; Estimated Glomerular Filt Rate > 60; Glucose Random 81 mg/dL (60-115); Potassium 2.9 mmol/L (3.3-5.1); Sodium 129 mmol/L (135-145)
[2024-01-03] MEDS: Potassium Chloride Packet 20 MEQ PACKET 40 MEQ PO (06:45)
[2024-01-03] MEDS: Hydroxychloroquine Sulfate 200 MG TABLET PO ×2 (08:34→22:06)
[2024-01-03] MEDS: Metoprolol Tartrate 25 MG TABLET PO ×2 (08:34→22:06)
[2024-01-03] MEDS: Potassium Chloride ER 20 MEQ TAB.ER.PRT 40 MEQ PO (08:35)
[2024-01-03] MEDS: Thiamine HCL 100 MG TABLET PO (08:35)
[2024-01-03] MEDS: Apixaban 5 MG TABLET PO ×2 (08:35→22:06)
[2024-01-03] MEDS: cefuroxime axetiL 500 MG TABLET PO ×2 (08:35→22:07)
[2024-01-03] MEDS: predniSONE 5 MG TABLET PO (08:35)
[2024-01-03] MEDS: Nicotine 21 MG PATCH.TD24 TRANSDERMA (08:35)
[2024-01-03] MEDS: Buprenorphine/Naloxone 8/2 mg FILM 2 FILM SUBLINGUAL (08:35)
[2024-01-03] MEDS: Multivitamin TABLET 1 TAB PO (08:35)
[2024-01-03] MEDS: Magnesium Oxide 400 MG TABLET PO ×2 (08:35→15:38)
[2024-01-03] MEDS: Doxycycline Monohydrate 100 MG CAPSULE PO ×2 (08:35→22:06)
[2024-01-03] MEDS: 0.9 % Sodium Chloride Flush 3 ML SYRINGE IVFLUSH ×3 (08:39→22:09)
[2024-01-03 09:49] LABS: Magnesium 1.3 mg/dL (1.6-2.6)
[2024-01-03] MEDS: Magnesium Sulfate/H2O 2 GM/50 ML PIGGYBACK IV (10:04)
--- NOTE | 2024-01-03 10:36 | MHC.CM.PN ---
CM met with patient at MD request to discuss dc planning. Not medically cleared at this time. PT recommending STR. RN reports patient is a 2-assist for mobility. [facility] has offered a bed and will submit for auth 01/03. Patient declining STR at this time. Feels that he can manage at home w/ assistance of girlfriend. CM requested to discuss plan w/ girlfriend, patient declined. Reviewed mobility limitations/safety concerns in depth. However, patient is not in agreement. CM offered [facility] for home PT. Patient also declines this plan. Prefers outpatient PT @ [facility]. Reports he can coordinate more help at home and transport to PT appointments. CM will continue to follow for safe dc plan.
--- NOTE | 2024-01-03 11:06 | HO.PM.IMPN ---
Subjective Subjective Date of Service: 01/03/24 Interval History: more alert and interactive still weak but little better than yesterday, not safe ambulating, poor balance no reported overnight events waiting placement at [facility] Review of Systems reporting weakness No chest pain, palpitation No shortness of breath or coughing No abdominal pain, nausea or vomiting No urinary symptoms abrasions Physical Exam Vital Signs: Vital Signs: Last Vital Signs Temp 97.8 F 01/03/24 07:02 Pulse 68 01/03/24 08:34 Resp 14 01/03/24 07:02 BP 134/78 01/03/24 08:34 Pulse Ox 98 01/03/24 07:02 O2 Del Method Room Air 01/03/24 07:02 BMI result Body Mass Index 14.1 Const: Other: Constitutional : Awake, not distressed Neck : Normal inspection, Supple Cardiovascular : RRR, no JVP, no lower extremity edema Respiratory : good bilateral air entry, no crackles, no wheezes or rhonchi Gastrointestinal: soft, lax, Normal bowel sounds, Non tender Skin : Warm, Dry, multiple areas of bruises and abrasions Neurological : Alert & oriented to self and place, No focal deficit Objective Data Active Medications Acetaminophen (Acetaminophen 325 Mg Tablet) 650 mg PO Q6H PRN PRN Reason: Pain, Mild (Pain Scale 1-3), fever or headache Last Admin: 01/02/24 12:35 Dose: 650 mg Documented By: YAYA Apixaban (Apixaban 5 Mg Tablet) 5 mg PO BID [facility] Last Admin: 01/03/24 08:35 Dose: 5 mg Documented By: JOCELYNN Benzonatate (Benzonatate 100 Mg Capsule) 100 mg PO TID PRN PRN Reason: Cough Buprenorphine/Naloxone (Buprenorphine/Naloxone 8/2 Mg Film) 2 film SUBLINGUAL DAILY [facility] Last Admin: 01/03/24 08:35 Dose: 2 film Documented By: JOCELYNN Calcium Carbonate (Calcium Carbonate 750 Mg Tab.Chew) 750 mg PO Q4H PRN PRN Reason: Heartburn Cefuroxime Axetil (Cefuroxime Axetil 500 Mg Tablet) 500 mg PO BID [facility] Last Admin: 01/03/24 08:35 Dose: 500 mg Documented By: JOCELYNN Doxycycline Monohydrate (Doxycycline Monohydrate 100 Mg Capsule) 100 mg PO BID [facility] Stop: 01/05/24 08:59 Last Admin: 01/03/24 08:35 Dose: 100 mg Documented By: JOCELYNN Hydroxychloroquine Sulfate (Hydroxychloroquine Sulfate 200 Mg Tablet) 200 mg PO BID [facility] Last Admin: 01/03/24 08:34 Dose: 200 mg Documented By: JOCELYNN Magnesium Sulfate (Magnesium Sulfate/H2o) 2 gm in 50 mls @ 25 mls/hr IV ONCE ONE Stop: 01/03/24 11:46 Last Admin: 01/03/24 10:04 Dose: 25 mls/hr Documented By: JOCELYNN Magnesium Hydroxide (Milk Of Magnesia 30 Ml Oral.Susp) 30 ml PO DAILY PRN PRN Reason: Constipation Magnesium Oxide (Magnesium Oxide 400 Mg Tablet) 400 mg PO BIDPC [facility] Melatonin (Melatonin 3 Mg Tablet) 6 mg PO BEDTIME PRN PRN Reason: Insomnia Last Admin: 01/02/24 21:39 Dose: 6 mg Documented By: BRODY Metoprolol Tartrate (Metoprolol Tartrate 25 Mg Tablet) 25 mg PO BID [facility]; Protocol Last Admin: 01/03/24 08:34 Dose: 25 mg Documented By: JOCELYNN Multivitamins/Vitamin C (Multivitamin Tablet) 1 tab PO DAILY [facility] Last Admin: 01/03/24 08:35 Dose: 1 tab Documented By: JOCELYNN Nicotine (Nicotine 21 Mg Patch.Td24) 21 mg TRANSDERMA DAILY [facility] Last Admin: 01/03/24 08:35 Dose: 21 mg Documented By: JOCELYNN Ondansetron HCl (Ondansetron Hcl 4 Mg/2 Ml Vial) 4 mg IVPUSH Q8H PRN PRN Reason: Nausea and Vomiting Pharmacy Consult (Consult Rx Etoh Phenob Im/Po) 1 each MISCELLANE ONCE PRN; Protocol PRN Reason: Consult order Phenobarbital (Phenobarbital 15 Mg Tablet) 15 mg PO BEDTIME [facility]; Protocol Stop: 01/03/24 21:01 Last Admin: 01/02/24 21:39 Dose: 15 mg Documented By: BRODY Phenobarbital Sodium (Phenobarbital Sodium 130 Mg/Ml Vial) 130 mg IM ONCE PRN PRN Reason: Alcohol Withdrawal Last Admin: 12/31/23 18:59 Dose: 130 mg Documented By: JASMIN Potassium Chloride (Potassium Chloride Packet 20 Meq Packet) 40 meq PO DAILY [facility] Last Admin: 01/03/24 06:45 Dose: 40 meq Documented By: BRODY Prednisone (Prednisone 5 Mg Tablet) 5 mg PO DAILY [facility] Last Admin: 01/03/24 08:35 Dose: 5 mg Documented By: JOCELYNN Sodium Chloride (0.9 % Sodium Chloride Flush 3 Ml Syringe) 3 ml IVFLUSH QSHIFT [facility] Last Admin: 01/03/24 08:39 Dose: 3 ml Documented By: JOCELYNN Thiamine HCl (Thiamine Hcl 100 Mg Tablet) 100 mg PO DAILY [facility] Last Admin: 01/03/24 08:35 Dose: 100 mg Documented By: JOCELYNN Labs 01/03/24 05:25 01/03/24 10:43 Labs: Laboratory Results - last 24 hr 01/03/24 05:25 MCV 83.4 MCH 27.6 MCHC 33.1 RDW 17.9 H Plt Count 203 MPV 11.1 Absolute Nucleated RBC 0.000 Nucleated RBC % (auto) 0.0 Anion Gap 9 L Estim Creat Clear Calc 129.8 Estimated GFR > 60 Random Glucose 81 Calcium 7.5 L Magnesium 1.3 L* Assessment and Plan (1) Acute hypokalemia: Status: Acute (2) Fall: Status: Acute (3) Adult failure to thrive: Status: Acute (4) Weakness: Status: Acute Plan A 53years old male with PMH of alcohol abuse, DVT on eliquis, falls, COPD, smoker among others who presents to the hospital after having a fall at home. Acute Alcohol withdrawal w hx alcohol abuse resolved, on CIWA addiction team input appreciated Finishing Phenobarbitol protocol Folic, thiamin reorientation as needed Pneumonia PO Antibiotics of Doxycycline and Ceftin , started in ED 12/29/23 acute on Chronic Hyponatremia. mild Na 129, fluid restrictions follow BMP Acute hypokalemia worse today of 2.9 replacement IV and PO given, follow BMP acute Hypomagnesemia replaced Fall PT eval rec STR Hx DVT on Eliquis continue home meds Hx COPD not in exacerbation Continue home Meds chronic normocytic anemia, no acute blood loss noted Chronic Hyponatremia. mild, fluid restriction, monitor Na History of substance abuse. Continue Suboxone. Moderate-severe calorie protein malnutrition. adult failure to thrive. BMI lower at 14.1. add Ensure, [employer] consult. Tobacco use disorder. advised to quit. nicotine patch. DVT PPx Eliquis the patient will likely need overnight hospital stay for physical deconditioning pending improvement as the patient still requires assistance getting out of the bed and upon ambulating, very unsteady with high risk of falling and recurrent admission. Quality Stroke Does the patient have a stroke diagnosis?: No VTE Prior VTE?: Yes VTE Risk Level:: Medical - moderate - high VTE Device Contraindication: Treatment Not Indicated VTE Drug Contraindication: N/A - Med Ordered
[2024-01-03 11:22] LABS: Potassium 4.1 mmol/L (3.3-5.1)
[2024-01-03] MEDS: Melatonin 3 MG TABLET 6 MG PO (22:06)
[2024-01-03] MEDS: PHENobarbitaL 15 MG TABLET PO (22:07)
[2024-01-04 02:35] VITALS: BP 129/83; PULSE 63; RESP 18; TEMP 37.1; O2SAT 97
[2024-01-04 06:20] LABS: Hematocrit 28.4 % (42.0-52.0); Hemoglobin 9.3 g/dl (14.0-18.0); Mean Corpuscular HGB Conc 32.7 g/dl (31.0-36.0); Mean Corpuscular Hemoglobin 27.6 pg (27.0-33.0); Mean Corpuscular Volume 84.3 fL (80.0-98.0); Mean Platelet Volume 10.3 fL (9.4-12.4); Platelet Count 225 X10*3/uL (160-400); Red Blood Count 3.37 X10*6/uL (4.60-5.80); White Blood Count 5.7 X10*3/uL (4.8-10.8)
[2024-01-04 06:53] LABS: Anion Gap 11 (12-20); Blood Urea Nitrogen 5 mg/dL (9-16); Calcium 7.7 mg/dL (8.4-10.2); Carbon Dioxide 22 mmol/L (22-29); Chloride 101 mmol/L (96-108); Creatinine Clr Calc Pharmacy 116.6; Estimated Glomerular Filt Rate > 60; Glucose Random 84 mg/dL (60-115); Magnesium 1.7 mg/dL (1.6-2.6); Potassium 4.1 mmol/L (3.3-5.1); Sodium 130 mmol/L (135-145)
[2024-01-04 08:00] VITALS: BP 132/85; PULSE 77; RESP 14; TEMP 37; O2SAT 97
[2024-01-04] MEDS: Hydroxychloroquine Sulfate 200 MG TABLET PO (08:38)
[2024-01-04] MEDS: Thiamine HCL 100 MG TABLET PO (08:38)
[2024-01-04] MEDS: Buprenorphine/Naloxone 8/2 mg FILM 2 FILM SUBLINGUAL (08:38)
[2024-01-04] MEDS: Doxycycline Monohydrate 100 MG CAPSULE PO (08:38)
[2024-01-04] MEDS: Multivitamin TABLET 1 TAB PO (08:39)
[2024-01-04] MEDS: predniSONE 5 MG TABLET PO (08:39)
[2024-01-04] MEDS: cefuroxime axetiL 500 MG TABLET PO (08:39)
[2024-01-04] MEDS: Magnesium Oxide 400 MG TABLET PO (08:39)
[2024-01-04] MEDS: Folic Acid 1 MG TABLET PO (08:39)
[2024-01-04] MEDS: Apixaban 5 MG TABLET PO (08:39)
[2024-01-04] MEDS: Metoprolol Tartrate 25 MG TABLET PO (08:39)
[2024-01-04] MEDS: Potassium Chloride Packet 20 MEQ PACKET 40 MEQ PO (08:39)
[2024-01-04] MEDS: 0.9 % Sodium Chloride Flush 3 ML SYRINGE IVFLUSH (08:50)
--- NOTE | 2024-01-04 09:37 | MHC.CLN ---
F/U DIET=REGULAR WITH 1500 ML FLUID RESTRICTION. EGBEAZ=782 ON 01/03. ENSURE TID PROVIDES 1050 KCALS, 60 G PROTEIN. SKIN WITH UNSTAGEABLE AREA TO SACRUM. INTAKE CONTINUES VARIABLE, 25-100%. SUPPLEMENT APPROPRIATE TO PROMOTE WOUND HEALING AND PROVIDE ADDITIONAL NUTRITION/CALORIES. IF CONSUMED 100%, ENSURE TID PROVIDES APPROX 650 ML FREE WATER. FOLLOW FOR PO INTAKE, WEIGHT AND WOUND HEALING.
[2024-01-04 12:04] VITALS: BP 120/81; PULSE 74; RESP 12; TEMP 37.2; O2SAT 97
--- NOTE | 2024-01-04 12:23 | MHC.CM.PN ---
Addendum entered by Nancy Wing 01/04/24 15:47: CM MET WITH PT AGAIN, HE REPORTS HAVING SECOND THOUGHTS ABOUT GOING HOME HE SAYS HE IS WORRIED THAT HE IS OUT OF SUBOXONE AND WILL NOT HAVE ANYMORE UNTIL HIS APPT AT [facility] [employer] [facility] ON THURSDAY PT GIVES CM [facility]ION [facility]M [facility] CM CALLED AND SPOKE TO [place] WHO CONFIRMS PTS APPT IS FOR THURSDAY AT [address]30 HOURS HOSPITALIST WILL PROVIDE ENOUGH MEDS TO HOLD PT UNTIL APPT PT STATES HE WILL CALL HIS RIDE ONCE HE IS READY TO DC Original Note: CM MET WITH PT TO DISCUSS DC PLANS PT CONTINUES TO DECLINE STR HE ALSO DECLINES VNA FOR HOME PT PT STATES HE IS WILLING TO GO [place] [facility] [facility]
--- NOTE | 2024-01-04 13:02 | P.DS_ITS ---
DS: Providers Provider Date of Service: 01/04/24 Date of admission: 12/29/23 09:56 Primary care physician: Lizandro Teran MD Consults: 12/28/23 20:14 Consult to Case Management Routine Comment: 12/29/23 10:20 Addiction Medicine Routine Consulting Provider: Addiction Covering Reason for consultation: alcohol withdrawal 12/29/23 17:22 Addiction Medicine Routine Consulting Provider: Addiction Covering Reason for consultation: daily ETOH consumption 12/29/23 17:25 Consult to Wound Care Routine Reason for consultation: left arm skin tear, ulcer to right buttock DS: Diagnosis Discharge Diagnosis (1) Acute hypokalemia: Status: Resolved (2) Fall: Status: Inactive (3) Adult failure to thrive: Status: Inactive (4) Weakness: Status: Inactive (5) Abrasion of skin: Status: Inactive (6) Alcohol dependence: Status: Inactive (7) Pneumonia: Status: Resolved DS: Summary Hospital Course Hospital Course: Admission note HPI A 53years old male with PMH of alcohol abuse, DVT on eliquis, falls, COPD, smoker among others who presents to the hospital after having a fall at home. The patient reports falling at home while walking to the bathroom as his legs felt too weak. denies head injury or loss of consciousness. he was able to crawl to the couch but could not stand up and spent the rest of the night of the floor. In ED he was monitored after taking care of abrasions from the fall but no bleeding. He started to showi withdrawal symptoms requring admission to medical floor along with low Mg level and hyponatremia with mild transaminitis. Hospital course - Acute Alcohol withdrawal w hx alcohol abuse. Treated with PHenobarbital protocol with good response as he was monitored on CIWA scoring 0 for the last 2 days. to give supplement of Folic, thiamin on discharge. - Community aquired Pneumonia treated with PO Antibiotics of Doxycycline and Ceftin , started in ED 12/29/23. t o finishi 3 more days upon discharge. - Acute on Chronic Hyponatremia. mild. flucuated but finally around 130 which is his baseline. recommend fluid restrictions at home. - Acute hypokalemia. replacement IV and PO given with good response. - Acute Hypomagnesemia, replaced and corrected. - Fall from physical deconditioning. PT evaluated him and recommended STR but he refused that and is only willing to go to outpatient rehablitation refusing VNA as well. Discharge plan We advise you complete abstinence from Alcohol Continue Antibiotics as prescribed Magnesium and Thiamine supplement daily To do physical therapy The patient is high risk for readmission given alcoholism and physical deconditioning refusing to go to a nursing facility as recommended by PT. Time Attestation Discharge Coordination Time (in mins): 36 Quality: Safe Use of Opioids Does Pt have an Active Cancer Diagnosis on the Problem List?: No Quality: Stroke Does the patient have a stroke diagnosis?: No Physical Exam Vital Signs: Vital Signs: Last Vital Signs Temp 98.9 F 01/04/24 12:04 Pulse 74 01/04/24 12:04 Resp 12 01/04/24 12:04 BP 120/81 01/04/24 12:04 Pulse Ox 97 01/04/24 12:04 O2 Del Method Room Air 01/04/24 12:04 BMI result Body Mass Index 14.1 Const: Other: Constitutional : Awake, not distressed Neck : Normal inspection, Supple Cardiovascular : RRR, no JVP, no lower extremity edema Respiratory : good bilateral air entry, no crackles, no wheezes or rhonchi Gastrointestinal: soft, lax, Normal bowel sounds, Non tender Skin : Warm, Dry, multiple areas of bruises and abrasions Neurological : Alert & oriented to self and place, No focal deficit DS: Data Data Completed and Pending Completed studies during hospitalization [Text1]: Procedures Detoxification Services for Substance Abuse Treatment (12/16/23) Resection of Gallbladder, Percutaneous Endoscopic Approach (08/15/22) Transfusion of Nonautologous Red Blood Cells into Peripheral Vein, Percutaneous Approach (12/16/23) Labs on day of discharge: Laboratory Results - last 24 hr 01/04/24 05:54 WBC 5.7 RBC 3.37 L Hgb 9.3 L Hct 28.4 L MCV 84.3 MCH 27.6 MCHC 32.7 RDW 18.0 H Plt Count 225 MPV 10.3 Absolute Nucleated RBC 0.000 Nucleated RBC % (auto) 0.0 Sodium 130 L Potassium 4.1 Chloride 101 Carbon Dioxide 22 Anion Gap 11 L BUN 5 L Creatinine 0.49 L Estim Creat Clear Calc 116.6 Estimated GFR > 60 Random Glucose 84 Calcium 7.7 L Magnesium 1.7 Imaging Chest x-ray: Radiologist's impression: ITS Impressions Chest X-Ray 12/28/23 17:32 IMPRESSION: 1. Severe emphysema. 2. Increased interstitial markings and patchy opacities in the right mid/lower lung paez and in the left lung base could represent superimposed infiltrate. Cervical Spine CT 12/28/23 17:50 IMPRESSION: 1. No acute intracranial pathology. 2. No CT evidence of acute cervical spine fracture or traumatic subluxation Head CT 12/28/23 17:50 IMPRESSION: 1. No acute intracranial pathology. 2. No CT evidence of acute cervical spine fracture or traumatic subluxation Discharge Plan Discharge Anticipated Discharge Date/Time: 01/04/24 12:54 Patient Disposition: Home Health Service Discharge Diagnosis: Alcohol withdrawal fall pneumonia Referrals: Lizandro Teran MD [Primary Care Provider] - 1 Week Discharge Medications: New magnesium oxide 400 mg (241.3 mg magnesium) Tablet 800 mg PO DAILY Qty: 120 0RF doxycycline monohydrate 100 mg Capsule 100 mg PO BID Qty: 6 0RF cefuroxime axetil 500 mg Tablet 500 mg PO BID Qty: 6 0RF thiamine mononitrate (vit B1) 100 mg Tablet 100 mg PO DAILY Qty: 90 0RF Continued Eliquis 5 mg tablet 5 mg PO BID 30 Days Qty: 60 5RF hydroxychloroquine 200 mg tablet 200 mg PO BID Qty: 180 1RF multivitamin Tablet 1 tab PO DAILY buprenorphine-naloxone [Suboxone] 8-2 mg film 2 film sublingual DAILY Qty: 4 0RF (DME) walker Misc See Rx Instructions .ROUTE .MEDSUPPLY Qty: 1 0RF Rx Instructions: As directed (DME) SHOWER CHAIR See Rx Instructions .Route .MEDSUPPLY Qty: 1 0RF Rx Instructions: As directed prednisone 5 mg tablet 5 mg PO DAILY 90 Days Qty: 90 4RF Discharge Orders: Discharge Order (Routine); Ordered 01/04/24 Ordered By: Leora Puckett Diet: High protein diet Activity on Discharge: As tolerated Stand Alone Forms: Patient Portal Discharge page Print Language: [place] Island[place] Care Plan Goals: We advise you complete abstinence from Alcohol Continue Antibiotics as prescribed Magnesium and Thiamine supplement daily To do physical therapy Health Concerns: Read below Plan of Treatment: Read below Assessment: Read below Discharge Date/Time: 01/04/24 16:08
--- NOTE | 2024-01-04 16:31 | MHC.CM.PN ---
CM MET WITH PT AND BOYFRIEND AT BEDSIDE PT LIVES WITH HER MOTHER AND AUNT WHO HAS DEMENTIA PT HAS NO DME OR FORMAL SERVICES PT WILL COMPLETE A HCP TODAY SHE SAYS HER PCP IS AT [address] [facility] [place], SHE THINKS THE NAME IS [facility], BUT IS UNSURE IMM DELIVERED DCP: HOME NO SERVICES VIA FAMILY TRANSPORT
== END 2024-01-04 16:08 | disposition home health service (06) | DRG 139 ==
LOC: HO.ED 12-29 09:51 → HO.EDOVER 12-29 10:04 → HO.S3 12-29 15:40
PROVIDERS: Internal Medicine; Admitting Provider Student in an Organized Health Care Education/Training Program; Emergency Provider Emergency Medicine; PCP Internal Medicine; Visit Provider Student in an Organized Health Care Education/Training Program
DX: J18.9 Pneumonia, unspecified organism (principal); E85.3 Secondary systemic amyloidosis; E44.0 Moderate protein-calorie malnutrition; E87.1 Hypo-osmolality and hyponatremia; F17.210 Nicotine dependence, cigarettes, uncomplicated; J44.0 Chronic obstructive pulmonary disease with (acute) lower respiratory infection; R62.7 Adult failure to thrive; W19.XXXA Unspecified fall, initial encounter; D64.9 Anemia, unspecified; F10.139 Alcohol abuse with withdrawal, unspecified; E87.6 Hypokalemia; Z71.6 Tobacco abuse counseling; F11.20 Opioid dependence, uncomplicated; Z68.1 Body mass index [BMI] 19.9 or less, adult; Z86.718 Personal history of other venous thrombosis and embolism; Z20.822 Contact with and (suspected) exposure to COVID-19; Z79.01 Long term (current) use of anticoagulants; Z79.899 Other long term (current) drug therapy
CPT/HCPCS: 36415; 70450; 71045; 72125; 80048; 80053; 80076; 80307; 81003; 82550; 83605; 83690; 83735; 83880; 84132; 84443; 84484; 85025; 85027; 85379; 85610; 87502; 87635; 93005; 93308; 97116; 97163; 97530; 99285; J2560; J3475; J7120; Q9957

== ENCOUNTER → 2023-12-28 17:18 | Outpatient (BNV) | payer OTHER, SELFPAY | PROVIDERS: Admitting Provider Student in an Organized Health Care Education/Training Program; Emergency Provider Emergency Medicine; PCP Internal Medicine; Visit Provider Internal Medicine Cardiovascular Disease | DX: R94.31 Abnormal electrocardiogram [ECG] [EKG] (principal) | CPT/HCPCS: 93010 ==

== ENCOUNTER 2023-12-29 09:56 | Outpatient (BNV) | payer OTHER, SELFPAY | END 2023-12-29 14:04 | PROVIDERS: Admitting Provider Student in an Organized Health Care Education/Training Program; Emergency Provider Emergency Medicine; PCP Internal Medicine; Visit Provider Internal Medicine Cardiovascular Disease | DX: R00.0 Tachycardia, unspecified (principal); R94.31 Abnormal electrocardiogram [ECG] [EKG] | CPT/HCPCS: 93010 ==

== ENCOUNTER 2023-12-29 09:56 | Outpatient (BNV) | payer OTHER, SELFPAY | END 2023-12-30 07:00 | PROVIDERS: Admitting Provider Student in an Organized Health Care Education/Training Program; Emergency Provider Emergency Medicine; PCP Internal Medicine; Visit Provider Internal Medicine Cardiovascular Disease | DX: R00.0 Tachycardia, unspecified (principal) | CPT/HCPCS: 93010; 93308 ==

== ENCOUNTER → 2023-12-29 09:56 | Outpatient (BNV) | payer OTHER, SELFPAY | PROVIDERS: Admitting Provider Student in an Organized Health Care Education/Training Program; Emergency Provider Emergency Medicine; PCP Internal Medicine; Visit Provider Student in an Organized Health Care Education/Training Program | DX: E87.6 Hypokalemia (principal); W19.XXXA Unspecified fall, initial encounter; R62.7 Adult failure to thrive; R53.1 Weakness; T14.8XXA Other injury of unspecified body region, initial encounter; F10.20 Alcohol dependence, uncomplicated; J18.9 Pneumonia, unspecified organism | CPT/HCPCS: 99222; 99232; 99239 ==